=== PATIENT | male | born 1945 | race Caucasian/White ===

== ENCOUNTER 2016-10-18 07:34 | Observation (INO) ==
[2016-10-18] MEDS ORDERED: Insulin Regular, Human 100 UNIT/ML IV ONE (07:51)
--- NOTE | 2016-10-18 07:53 | Emergency Department Note ---
Disposition Clinical Impression: Metabolic acidosis, increased anion gap, Lactic acidosis, Acute on chronic renal insufficiency DKA (diabetic ketoacidoses) Qualifiers: Diabetes mellitus type: type 2 Diabetes mellitus complication detail: without coma Qualified Code(s): E13.10 - Other specified diabetes mellitus with ketoacidosis without coma Disposition: Admitted As Inpatient Condition: Serious Referrals: NO,PCP [Primary Care Provider] - Forms: Work/School Release, ED Satisfaction Letter Time of Disposition: 10:00 Weakness HPI - General Chief complaint: ED General Medical Stated complaint: hyperglycemia Time Seen by Provider: 10/18/16 07:36 Source: patient, family Limitations: no limitations Nursing Notes Reviewed: Yes Vital Signs Reviewed: Yes - History of Present Illness HPI Narrative: 71-year-old male history of [id number] diabetes, acute on chronic renal failure, presents plane of weakness and weight loss of about 10 pounds over the last 2 weeks. Patient is generalized weakness. And states that he has been having walk with a cane because he has been feeling weaker than usual. He is had this problem previously when he had elevated blood sugars. And was admitted to the ICU a few years ago for the similar condition. Patient's family history sister and his niece were at bedside state that they know most of his medical conditions and to give a lot of his history. As he is somewhat poor historian. Patient does live alone independently. The pain reason that he came to the ED today was he has his blood sugar was reading high on the glucometer, they are concerned that this meant that his sugar was greater than 500. He denies any chest pain abdominal pain, endorses slight nausea, denies vomiting diarrhea constipation, fever chills, dysuria Pt Subjective Complaint: generalized weakness/fatigue Onset (ago): week(s) (2) Duration: intermittent Pain Severity: mild Pain Scale: 7 Improves with: none Worsens with: none Associated symptoms: Reports: denies other symptoms, nausea/vomiting. Denies: chest pain, confusion, dark stools, easy bruising, fever/chills, headaches, myalgias - Related Data Home Medications Medication Instructions Recorded Confirmed Aspirin 325 mg PO DAILY 04/03/15 10/18/16 Glimepiride [Amaryl] 4 mg PO DAILY 04/03/15 10/18/16 Zolpidem [Ambien] 10 mg PO HS 04/03/15 10/18/16 Ascorbic Acid [Vitamin C] 1,000 mg PO DAILY 12/31/15 10/18/16 Metoprolol [Lopressor] 100 mg PO BID 12/31/15 10/18/16 Multivitamin [One Daily Essential] 1 tab PO DAILY 12/31/15 10/18/16 Amiodarone [Cordarone] 200 mg PO DAILY 10/18/16 10/18/16 Amlodipine [Norvasc] 5 mg PO DAILY 10/18/16 10/18/16 Previous Rx's Medication Instructions Recorded HYDROcodone/Acet 5/325 mg [[place] 1 tab PO Q4H PRN #15 tab 09/28/16 5-325 mg] Phenazopyridine HCl [Pyridium] 200 mg PO TIDAC PRN #20 tab 09/28/16 Allergies Allergy/AdvReac Type Severity Reaction Status Date / Time Penicillins Allergy Unknown Hives Verified 10/18/16 07:39 All systems ED: reviewed and negative except as stated. Constitutional: Reports: as per HPI, weakness, weight change. Denies: fever, chills Eyes: Denies: eye pain Cardiovascular: Denies: chest pain, palpitations Respiratory: Denies: cough, dyspnea, wheezes Gastrointestinal: Reports: as per HPI, nausea. Denies: abdominal pain, vomiting , diarrhea Genitourinary: Denies: urgency, dysuria, frequency Musculoskeletal: Denies: back pain, neck pain Integumentary: Denies: rash, abrasion Neurological: Reports: weakness. Denies: headache Psychiatric: Denies: anxiety, depression Past Medical History - Past Medical History Attestation: Yes The following information was validated with the patient. Source: patient Medical history: Reports: atrial fibrillation, coronary artery disease, glaucoma , kidney stones, renal disease Surgical history: Reports: pacemaker/AICD Psychiatric history: Reports: anxiety, depression - Social History Smoking Status: Never smoker Smokeless Tobacco Status: No Alcohol use: Reports: none Drug use: Reports: none Physical Exam Constitutional: Elderly male in no acute distress, appears stated age. Vital signs reviewed and are unremarkable HEENT: NCAT, sclera anicteric, PERRLA bilaterally, normal external ears bilaterally, nasal septum nondeviated, average dentition, mucus membranes dry. Neck: normal inspection, neck is supple, trachea midline Resp: normal chest inspection, CTA bilaterally, no resp distress CV: RRR, no m/g/r GI: normal inspection, Soft, NTND, BS present Back: normal inspection, no tenderness to palpation Neuro: A&O3, no gross motor or sensory deficits bilaterally Skin: Poor skin turgor - General Limitations: no limitations General appearance: alert, in no apparent distress Course Course Narrative: 71-year-old male with elevated blood sugar, at home read high here in the ED his blood glucometer reading was also high, patient is generalized weakness weight loss, concerning for DKA we will add beta hydroxybutyric acid, VBG, urinalysis, 2 L of fluids, regular insulin basic lab work reassess low threshold for admission in this patient - Reevaluation(s) Reevaluation #1: I discussed the patient with Dr. Moya he stated that we did not have any stepdown beds so that the patient should be transferred to another hospital, however after this conversation we spoke with pain management and they will have several discharges today at [facility], therefore the management will make sure that there is a stepdown bed available for this DKA patient, and the patient will be started on IV insulin drip with IV fluids, in the emergency department, waiting bed placement on the floor. Time: 09:59 Reevaluation #2: [facility] Accepted patient bed 2n9 available per bed management, patient stable Time: 11:12 Vital Signs Temperature 97.4 F L 10/18/16 07:36 Pulse Rate 60 10/18/16 07:36 Respiratory Rate 16 10/18/16 07:36 Blood Pressure 154/84 10/18/16 07:36 O2 Sat by Pulse Oximetry 97 10/18/16 07:36 Temperature 97.4 F L 10/18/16 07:36 Pulse Rate 59 10/18/16 09:30 Respiratory Rate 16 10/18/16 09:30 Blood Pressure 138/83 10/18/16 09:30 O2 Sat by Pulse Oximetry 94 L 10/18/16 09:30 Oxygen Delivery Oxygen Delivery Room Air Weakness - MDM Narrative Medical decision making narrative: 71 male with DKA, anion gap acidosis, lactic acidosis, acute on chronic renal failure, admitted to the hospitalist service in stable condition at the time of ED disposition. - Differential Diagnosis Differential Diagnosis: Likely: acute myocardial infarction, anemia, rhabdomyolysis, sepsis/infection, medication effect, metabolic, thyroid/ endocrine disorder - Medical Records Medical records reviewed: Yes I reviewed the patient's medical records. - Lab Data Lab results reviewed: Yes I reviewed the patient's lab results. Result diagrams: 10/18/16 08:03 10/18/16 08:03 Lab Results 10/18/16 10/18/16 10/18/16 Range/Units 07:45 08:03 08:03 WBC 9.1 (4.3-11.1) K/mcL RBC 5.43 (4.19-5.50) M/mcL Hgb 16.7 (12.9-16.9) g/dL Hct 48.4 (37.5-50.1) % MCV 89.1 (83.0-100.0) fL MCH 30.8 (28.0-33.3) pg MCHC 34.5 (31.6-35.5) g/dL RDW 13.1 (11.5-14.5) % Plt Count 314 (140-400) K/mcL MPV 12.2 (9.4-12.4) fL Immature Gran % 0.8 (0-4) % Seg Neutrophils % 68.7 % Lymphocytes % 17.7 % Monocytes % 10.8 % Eosinophils % 1.3 % Basophils % 0.7 % Neutrophils # 6.3 (1.6-8.9) K/mcL Lymphocytes # 1.6 (0.6-4.6) K/mcL Monocytes # 1.0 (0.0-1.3) K/mcL Eosinophils # 0.1 (0.0-0.6) K/mcL Basophils # 0.1 (0.0-0.2) K/mcL VBG pH (7.32-7.42) pH Units VBG pCO2 (41-51) mmHg VBG pO2 (25-40) mmHg VBG HCO3 (21-27) mEq/L Sodium 131 L (136-145) mEq/L Potassium 4.4 (3.5-4.5) mEq/L Chloride 93 L (98-109) mEq/L Carbon Dioxide 24 (19-29) mEq/L BUN 28 H (8-26) mg/dL Creatinine 2.41 H (0.72-1.25) mg/dL Est GFR ( Amer) 32 L (> 60) Est GFR (Non-Af Amer) 27 L (> 60) BUN/Creatinine Ratio 12 (6-26) Glucose 748 H* (70-99) mg/dL POC Glucose > 600 H* (58-89) Calculated Osmolality 314 H (280-300) Lactic Acid (0.5-2.2) mmol/L Calcium 9.7 (8.6-10.8) mg/dL Phosphorus 4.1 (2.3-4.7) mg/dL Magnesium 1.9 (1.6-2.6) mg/dL Total Bilirubin 1.3 H (0.2-1.2) mg/dL AST 22 (5-34) Units/L ALT 37 (0-55) Units/L Alkaline Phosphatase 146 H (38-126) Units/L Troponin I (0-0.03) ng/mL Serum Total Protein 8.7 H (6.0-8.3) g/dL Albumin 3.8 (3.5-5.0) g/dL Globulin 4.9 H (2.4-3.5) g/dL Albumin/Globulin Ratio 0.8 L (1.1-2.2) Beta-Hydroxybutyric Acd 0.31 H (0.02-0.27) mmol/L Urine Color (Yellow) Urine Clarity (Clear) Urine pH (5.0-8.0) pH Units Ur Specific [place] (1.010-1.025) Urine Protein (Neg-Trace) mg/dL Urine Glucose (UA) (Normal) mg/dL Urine Ketones (Negative) mg/dL Urine Blood (Negative) Urine Nitrite (Negative) Urine Bilirubin (Negative) Urine Urobilinogen (Normal) mg/dL Ur Leukocyte Esterase (Negative) Urine Microscopic RBC (0-3) per hpf Urine Microscopic WBC (0-3) per hpf Ur Squamous Epith Cells (None-Few) per lpf Urine Bacteria (None-Few) per hpf Hyaline Casts (None-Few) per lpf Ur Culture Indicated? (NO) 10/18/16 10/18/16 10/18/16 Range/Units 08:03 08:03 08:03 WBC (4.3-11.1) K/mcL RBC (4.19-5.50) M/mcL Hgb (12.9-16.9) g/dL Hct (37.5-50.1) % MCV (83.0-100.0) fL MCH (28.0-33.3) pg MCHC (31.6-35.5) g/dL RDW (11.5-14.5) % Plt Count (140-400) K/mcL MPV (9.4-12.4) fL Immature Gran % (0-4) % Seg Neutrophils % % Lymphocytes % % Monocytes % % Eosinophils % % Basophils % % Neutrophils # (1.6-8.9) K/mcL Lymphocytes # (0.6-4.6) K/mcL Monocytes # (0.0-1.3) K/mcL Eosinophils # (0.0-0.6) K/mcL Basophils # (0.0-0.2) K/mcL VBG pH 7.33 (7.32-7.42) pH Units VBG pCO2 53 H (41-51) mmHg VBG pO2 32 (25-40) mmHg VBG HCO3 27.9 H (21-27) mEq/L Sodium (136-145) mEq/L Potassium (3.5-4.5) mEq/L Chloride (98-109) mEq/L Carbon Dioxide (19-29) mEq/L BUN (8-26) mg/dL Creatinine (0.72-1.25) mg/dL Est GFR ( Amer) (> 60) Est GFR (Non-Af Amer) (> 60) BUN/Creatinine Ratio (6-26) Glucose (70-99) mg/dL POC Glucose (58-89) Calculated Osmolality (280-300) Lactic Acid 3.6 H (0.5-2.2) mmol/L Calcium (8.6-10.8) mg/dL Phosphorus (2.3-4.7) mg/dL Magnesium (1.6-2.6) mg/dL Total Bilirubin (0.2-1.2) mg/dL AST (5-34) Units/L ALT (0-55) Units/L Alkaline Phosphatase (38-126) Units/L Troponin I 0.01 (0-0.03) ng/mL Serum Total Protein (6.0-8.3) g/dL Albumin (3.5-5.0) g/dL Globulin (2.4-3.5) g/dL Albumin/Globulin Ratio (1.1-2.2) Beta-Hydroxybutyric Acd (0.02-0.27) mmol/L Urine Color (Yellow) Urine Clarity (Clear) Urine pH (5.0-8.0) pH Units Ur Specific [place] (1.010-1.025) Urine Protein (Neg-Trace) mg/dL Urine Glucose (UA) (Normal) mg/dL Urine Ketones (Negative) mg/dL Urine Blood (Negative) Urine Nitrite (Negative) Urine Bilirubin (Negative) Urine Urobilinogen (Normal) mg/dL Ur Leukocyte Esterase (Negative) Urine Microscopic RBC (0-3) per hpf Urine Microscopic WBC (0-3) per hpf Ur Squamous Epith Cells (None-Few) per lpf Urine Bacteria (None-Few) per hpf Hyaline Casts (None-Few) per lpf Ur Culture Indicated? (NO) 10/18/16 Range/Units 09:20 WBC (4.3-11.1) K/mcL RBC (4.19-5.50) M/mcL Hgb (12.9-16.9) g/dL Hct (37.5-50.1) % MCV (83.0-100.0) fL MCH (28.0-33.3) pg MCHC (31.6-35.5) g/dL RDW (11.5-14.5) % Plt Count (140-400) K/mcL MPV (9.4-12.4) fL Immature Gran % (0-4) % Seg Neutrophils % % Lymphocytes % % Monocytes % % Eosinophils % % Basophils % % Neutrophils # (1.6-8.9) K/mcL Lymphocytes # (0.6-4.6) K/mcL Monocytes # (0.0-1.3) K/mcL Eosinophils # (0.0-0.6) K/mcL Basophils # (0.0-0.2) K/mcL VBG pH (7.32-7.42) pH Units VBG pCO2 (41-51) mmHg VBG pO2 (25-40) mmHg VBG HCO3 (21-27) mEq/L Sodium (136-145) mEq/L Potassium (3.5-4.5) mEq/L Chloride (98-109) mEq/L Carbon Dioxide (19-29) mEq/L BUN (8-26) mg/dL Creatinine (0.72-1.25) mg/dL Est GFR ( Amer) (> 60) Est GFR (Non-Af Amer) (> 60) BUN/Creatinine Ratio (6-26) Glucose (70-99) mg/dL POC Glucose (58-89) Calculated Osmolality (280-300) Lactic Acid (0.5-2.2) mmol/L Calcium (8.6-10.8) mg/dL Phosphorus (2.3-4.7) mg/dL Magnesium (1.6-2.6) mg/dL Total Bilirubin (0.2-1.2) mg/dL AST (5-34) Units/L ALT (0-55) Units/L Alkaline Phosphatase (38-126) Units/L Troponin I (0-0.03) ng/mL Serum Total Protein (6.0-8.3) g/dL Albumin (3.5-5.0) g/dL Globulin (2.4-3.5) g/dL Albumin/Globulin Ratio (1.1-2.2) Beta-Hydroxybutyric Acd (0.02-0.27) mmol/L Urine Color Yellow (Yellow) Urine Clarity Cloudy A (Clear) Urine pH 6.0 (5.0-8.0) pH Units Ur Specific [place] > 1.030 H (1.010-1.025) Urine Protein 30 H (Neg-Trace) mg/dL Urine Glucose (UA) >=1000 H (Normal) mg/dL Urine Ketones Negative (Negative) mg/dL Urine Blood Large H (Negative) Urine Nitrite Negative (Negative) Urine Bilirubin Negative (Negative) Urine Urobilinogen Normal (Normal) mg/dL Ur Leukocyte Esterase Moderate H (Negative) Urine Microscopic RBC TNTC H (0-3) per hpf Urine Microscopic WBC TNTC H (0-3) per hpf Ur Squamous Epith Cells Moderate H (None-Few) per lpf Urine Bacteria Few (None-Few) per hpf Hyaline Casts None Seen (None-Few) per lpf Ur Culture Indicated? YES A (NO) - Radiology Data Radiology results reviewed: Yes I reviewed the patient's radiology results. Chest X-Ray 10/18/16 07:51 IMPRESSION: No acute cardiopulmonary process. Emphysema. D/ / Alek Sanford MD / Alek Sanford MD Interpreting Provider: Alek Sanford MD - EKG Data EKG attestation: Yes I reviewed and interpreted this EKG. EKG shows normal: sinus rhythm Rate: normal (60 bpm) [place]/QRS: IVCD (Pacemaker, left bundle branch block similar to previous EKG) Interpretation: no acute changes, unchanged when compared to prior tracing (date ) - Core Measures AMI Core Measures Followed: No Attestation Statement - Attestation Attestation: I examined this patient and my medical decision-making was reviewed with the PUBLIC SERVICE ADMINISTRATOR/PA/Advanced Practice Nurse/Resident Physician. I agree with the documented findings, disposition and treatment plan as described except to the extent set forth below. Patient to the emergency department complaining of generalized weakness. He felt bad for the past week. Laying around. They noted that his blood sugar was over 500 so they brought him in for an evaluation. Patient has a history of diabetes. He only takes metformin for that. On examination he is awake and alert. Dry mucous membranes. Abdomen soft nontender. Plan. He denies any infectious symptoms. Appears dehydrated. Blood sugar read as high on glucometer. Likely DKA. Patient with increased anion gap. Blood sugar in the 700s. Insulin drip and IV normal saline. Patient will be admitted to the hospitalist.
[2016-10-18] MEDS ORDERED: *HR* Dextrose 50 % in Water (Syg) 50 ML SYRINGE IVP PRN ×2 (08:07→11:18)
[2016-10-18] MEDS ORDERED: Insulin Human Regular 100 UNIT in 0.9 % Sodium Chloride 100 ML IVC SCH ×2 (08:15→13:30)
[2016-10-18] MEDS: 0.9 % Sodium Chloride 1,000 ML IVC SCH ×3 (08:16→11:30)
[2016-10-18 08:20] LABS: Basophils # 0.1 K/mcL (0.0-0.2); Basophils % 0.7 %; Eosinophils # 0.1 K/mcL (0.0-0.6); Eosinophils % 1.3 %; Hematocrit 48.4 % (37.5-50.1); Hemoglobin 16.7 g/dL (12.9-16.9); Immature Granulocytes % 0.8 % (0-4); Lymphocytes # 1.6 K/mcL (0.6-4.6); Lymphocytes % 17.7 %; Mean Corpuscular HGB Conc 34.5 g/dL (31.6-35.5); Mean Corpuscular Hemoglobin 30.8 pg (28.0-33.3); Mean Corpuscular Volume 89.1 fL (83.0-100.0); Mean Platelet Volume 12.2 fL (9.4-12.4); Monocytes % 10.8 %; Neutrophils # 6.3 K/mcL (1.6-8.9); Platelet Count 314 K/mcL (140-400); Red Blood Count 5.43 M/mcL (4.19-5.50); Red Cell Distribution Width 13.1 % (11.5-14.5); Segmented Neutrophils % 68.7 %
[2016-10-18 08:23] LABS: Beta-Hydroxybutyric Acid 0.31 mmol/L (0.02-0.27)
[2016-10-18 08:25] LABS: VBG HCO3 27.9 mEq/L (21-27); VBG PH 7.33 pH Units (7.32-7.42)
[2016-10-18 08:26] LABS: Albumin 3.8 g/dL (3.5-5.0); Albumin/Globulin Ratio 0.8 (1.1-2.2); Bilirubin,Total 1.3 mg/dL (0.2-1.2); Calcium 9.7 mg/dL (8.6-10.8); Globulin 4.9 g/dL (2.4-3.5); Magnesium 1.9 mg/dL (1.6-2.6); Phosphorous 4.1 mg/dL (2.3-4.7); Potassium 4.4 mEq/L (3.5-4.5); Total Protein 8.7 g/dL (6.0-8.3)
[2016-10-18 09:33] LABS: Bilirubin,Urine Negative (Negative); Blood,Urine Large (Negative); Clarity,Urine Cloudy (Clear); Color,Urine Yellow (Yellow); Glucose,Urine (UA) >=1000 mg/dL (Normal); Ketones,Urine Negative (Negative); Leukocyte Esterase,Urine Moderate (Negative); Nitrite,Urine Negative (Negative); Protein,Urine 30 mg/dL (Neg-Trace); Specific Gravity,Urine > 1.030 (1.010-1.025); Urobilinogen,Urine Normal (Normal)
[2016-10-18 09:35] LABS: Bacteria,Urine Few per hpf (None-Few); Hyaline Casts,Urine None Seen per lpf (None-Few); RBC,Urine TNTC per hpf (0-3); Squamous Epithelial Cell,Urine Moderate per lpf (None-Few); WBC,Urine TNTC per hpf (0-3)
[2016-10-18] MEDS ORDERED: Naloxone 0.4 MG/ML INJ IVP PRN (11:17)
[2016-10-18] MEDS ORDERED: D5% in 0.45% NACL w KCl 20 MEQ/1,000 ML MLS IVC PRN (11:18)
[2016-10-18] MEDS ORDERED: 0.9 % Sodium Chloride w KCl 20 MEQ/1,000 ML MLS IVC SCH (11:30)
--- NOTE | 2016-10-18 12:29 | Internal Med History&Physical ---
Date of Encounter: 10/18/16 Time of Encounter: 12:00 Assessment and Plan (1) Uncontrolled type 2 diabetes mellitus with hyperosmolar nonketotic hyperglycemia Current visit: Yes Status: Acute We will place the patient in hospital. Monitor vital signs closely. Given the high blood sugars, he will be placed on intravenous insulin per [facility] protocol. IV hydration. Monitor blood sugars closely. (2) Atrial fibrillation Current visit: Yes Status: Chronic Rate controlled. Patient currently has a paced rhythm. Not on anticoagulation. On aspirin. Qualifiers: Atrial fibrillation type: paroxysmal Qualified Code(s): I48.0 - Paroxysmal atrial fibrillation (3) Essential hypertension Current visit: Yes Status: Chronic Controlled. Continue home medications. (4) Lactic acidosis Current visit: Yes Status: Acute Likely due to dehydration and HSS. Will recheck levels. IV hydration. (5) Acute on chronic renal insufficiency Current visit: Yes Status: Acute Patient with worsening BUN and creatinine. Likely from dehydration. At baseline patient has chronic kidney disease stage III. We will consult urology to help manage the ureteral stent. (6) Acute cystitis without hematuria Current visit: Yes Status: Acute Patient has numerous wbc is urine. Underwent recent ureteral stent. Will treat empirically with antibiotics for a short course. Internal Medicine - H&P: HPI Chief complaint: Generalized weakness and fatigue Admitted From: Emergency Dept Plans for Post Hospital Care: Home History of present illness: Mr. Ventura is a 71 year old male with history of diabetes mellitus type 2, nephrolithiasis, atrial fibrillation, coronary artery disease and chronic kidney disease presented to the ER with complaints of generalized weakness. His symptoms have been going on for about 3 days now. He underwent a urologic procedure recently. He denies any pain while passing urine or any hematuria. He denies any nausea or vomiting. No diarrhea or constipation. He denies any chest pain or palpitations. He had checked his blood sugars at home and the reading was high so he decided to come to the ER. Patient has a ureteral stent in place and this was supposed to be removed today in the urology office. Past Med Surg Social Fam HX - Past Medical History Attestation: Yes The following information was validated with the patient. Medical history: atrial fibrillation, coronary artery disease, glaucoma, kidney stones, renal disease Psychiatric history: anxiety, depression - Past Surgical History Surgical History: pacemaker/AICD - Social History Smoking Status: Never smoker Smokeless Tobacco Status: No Alcohol use: none Drug use: none - Additional Family History Additional family history: Reviewed and found to be noncontributory at this time Internal Medicine - H&P: Meds Aspirin 325 mg PO DAILY 04/03/15 [History] Glimepiride [Amaryl] 4 mg PO DAILY 04/03/15 [History] Zolpidem [Ambien] 10 mg PO HS 04/03/15 [History] Ascorbic Acid [Vitamin C] 1,000 mg PO DAILY 12/31/15 [History] Metoprolol [Lopressor] 100 mg PO BID 12/31/15 [History] Multivitamin [One Daily Essential] 1 tab PO DAILY 12/31/15 [History] HYDROcodone/Acet 5/325 mg [[place] 5-325 mg] 1 tab PO Q4H PRN #15 tab 09/28/16 [Rx ] Phenazopyridine HCl [Pyridium] 200 mg PO TIDAC PRN #20 tab 09/28/16 [Rx] Amiodarone [Cordarone] 200 mg PO DAILY 10/18/16 [History] Amlodipine [Norvasc] 5 mg PO DAILY 10/18/16 [History] Allergies Penicillins Allergy (Unknown, Verified 10/18/16 07:39) Hives All Systems PM: A 10-system review of systems was performed and is negative for pertinent findings except as documented above in the HPI. - Constitutional Constitutional: malaise, weakness, no chills, no fever(s), no night sweats - EENT Eyes: no change in vision, no discharge, no pain, no photophobia Ears: no ear discharge, no ear pain, no tinnitus Nose, mouth and throat: no dysphagia, no nasal discharge, no neck pain, no sore throat - Cardiovascular Cardiovascular ROS IM: no chest pain, no diaphoresis, no dyspnea, no lightheadedness, no palpitations, no syncope - Respiratory Respiratory: no cough, no dyspnea, no wheezing, no excessive phlegm production - Gastrointestinal Gastrointestinal: no abdominal pain, no diarrhea, no hematemesis, no hematochezia, no melena, no nausea, no vomiting - Musculoskeletal Musculoskeletal ROS IM: no numbness, no tingling - Integumentary Integumentary IM: no rash, no unusual bruising - Neurological Neurological ROS: no confusion, no convulsions, no focal weakness, no numbness, no tingling, no tremor(s) - Hematologic/Lymphatic Hematologic/Lymphatic: no easy bruising - Constitutional Vitals: Temp Pulse Resp BP Pulse Ox 97.4 F L 59 16 120/77 96 10/18/16 07:36 10/18/16 11:30 10/18/16 11:30 10/18/16 11:30 10/18/16 11:30 General appearance: Present: cooperative, mild distress, A&O X 3, answers questions appropriately - Head Head exam: Present: atraumatic, normocephalic - Eye Eye exam: Present: EOMI, PERRL, conjuntiva pink, sclera anicteric - ENT ENT exam: Present: mucous membranes dry - Neck Neck exam general surgery: Present: supple, trachea midline. Absent: lymphadenopathy - Respiratory Respiratory exam: Present: CTAB. Absent: accessory muscle use, rales, rhonchi, wheezes - Cardiovascular Cardiovascular exam: Present: RRR, +S1, +S2. Absent: diastolic murmur, gallop, rubs, systolic murmur - GI/Abdominal GI/Abdominal exam: Present: normal bowel sounds, soft, no peritoneal signs. Absent: distended, tenderness - Extremities Exam Extremities exam: Present: warm, radial pulses palpable and symetrical. Absent : calf tenderness, cyanotic, pedal edema - Neurological Exam Neurological exam: Present: alert, CN II-XII intact, oriented X3, no focal deficits. Absent: facial droop, speech deficit - Psychiatric Psychiatric exam: Present: normal affect, normal mood - Skin Skin exam: Present: dry, intact Internal Med - H&P Results - Labs CBC & Chem 7: 10/18/16 08:03 10/18/16 08:03 - Impressions Impressions Chest X-Ray 10/18/16 07:51 IMPRESSION: No acute cardiopulmonary process. Emphysema. D/ / Alek Sanford MD / Alek Sanford MD Interpreting Provider: Alek Sanford MD - Attending Attestation This document has been at least partially created by [employer] recognition technology by Dr. Moya. Errors in grammar, wording or other phrases may exist. If errors are found after the documentation is signed, they will be addressed individually in the addendum section of this document when appropriate.
[2016-10-18] MEDS ORDERED: *HR* HYDROcodone/Acet 5/325 mg TABLET PO PRN (12:36)
[2016-10-18 13:00] LABS: Hemoglobin A1C 9.9 %
[2016-10-18 14:37] LABS: Calcium 8.4 mg/dL (8.6-10.8); Potassium 3.7 mEq/L (3.5-4.5)
[2016-10-18] MEDS ORDERED: Dextrose Gel 15 GM PO PRN ×2 (14:52)
[2016-10-18] MEDS ORDERED: D5% in Water 1,000 ML IV PRN (14:52)
[2016-10-18] MEDS: Insulin DETEMIR 100 UNIT/ML X5UNITS SQ SCH (15:38)
[2016-10-18] MEDS: Insulin LISPRO 300 UNITS/3 ML VIAL SQ SCH ×2 (16:53→21:50)
[2016-10-18] MEDS: *HR* Heparin 5,000 UNIT/ML VIAL SQ SCH (17:41)
--- NOTE | 2016-10-18 17:50 | Urology - Consult Note ---
Date of Encounter: 10/18/16 Time of Encounter: 17:48 - Assessment and Plan (1) Ureteral stricture Current Visit: Yes Status: Acute Assessment and plan: keep ureteral stent in place at this time. will schedule f/u appointment for stent removal in office (2) Acute on chronic renal insufficiency Current Visit: Yes Status: Acute Assessment and plan: serum creatinine already improving. will watch closely. Urology CN:HPI Consult date: 10/18/16 Reason for consult Urology: Hydronephrosis Requesting physician: Monalisa Moya History of present illness: Jason is a 71-year-old male with a history of left distal ureteral stricture. Patient recently underwent ureteral dilation and left ureteral stent placement by Dr. Lundberg. He was scheduled today in the office for cystoscopic removal of stent. Now admitted to the hospital secondary to diabetic ketoacidosis. He denies any problems with the ureteral stent. Initially when he was admitted the patient's creatinine was above 2 but has already decreased to 1.4. Past Med Surg Social Fam HX - Past Medical History Medical history: atrial fibrillation, coronary artery disease, glaucoma, kidney stones, renal disease Psychiatric history: anxiety, depression - Past Surgical History Surgical History: pacemaker/AICD - Social History Smoking Status: Never smoker Smokeless Tobacco Status: No Alcohol use: none Drug use: none Medications and Allergies Aspirin 325 mg PO DAILY 04/03/15 [History] Glimepiride [Amaryl] 4 mg PO DAILY 04/03/15 [History] Zolpidem [Ambien] 10 mg PO HS 04/03/15 [History] Ascorbic Acid [Vitamin C] 1,000 mg PO DAILY 12/31/15 [History] Metoprolol [Lopressor] 100 mg PO BID 12/31/15 [History] Multivitamin [One Daily Essential] 1 tab PO DAILY 12/31/15 [History] Amlodipine [Norvasc] 5 mg PO DAILY 10/18/16 [History] Brimonidine Tartrate/Timolol [Combigan Eye Drops] 1 drop OP HS 10/18/16 [History ] Cyclobenzaprine [Flexeril] 10 mg PO HS 10/18/16 [History] Paroxetine [Paxil] 20 mg PO DAILY 10/18/16 [History] Allergies Penicillins Allergy (Unknown, Verified 10/18/16 07:39) Hives Review of Systems - Constitutional no chills - EENT Nose, mouth and throat: no dizziness - Cardiovascular no chest pain - Respiratory no cough - Gastrointestinal no abdominal pain - Genitourinary no nocturia - Musculoskeletal no back pain - Integumentary no lesions Exam Initial Vital Signs Temp Pulse Resp BP Pulse Ox 97.4 F L 60 16 154/84 97 10/18/16 07:36 10/18/16 07:36 10/18/16 07:36 10/18/16 07:36 10/18/16 07:36 - General physical appearance Present: well developed - Eyes Present: PERRL - ENT Present: normal nares - Neck Present: no masses - Respiratory Present: normal respiratory effort - Cardiovascular Cardiovascular exam IM: RRR - Abdomen Abdomen: Present: soft Urology Results - Labs 10/18/16 08:03 10/18/16 14:13 Abnormal lab results VBG pCO2 53 mmHg (41-51) H 10/18/16 08:03 VBG HCO3 27.9 mEq/L (21-27) H 10/18/16 08:03 Hemoglobin A1c 9.9 % (-5.6) H 10/18/16 08:03 Lactic Acid 3.6 mmol/L (0.5-2.2) H 10/18/16 08:03 Total Bilirubin 1.3 mg/dL (0.2-1.2) H 10/18/16 08:03 Alkaline Phosphatase 146 Units/L (38-126) H 10/18/16 08:03 Serum Total Protein 8.7 g/dL (6.0-8.3) H 10/18/16 08:03 Globulin 4.9 g/dL (2.4-3.5) H 10/18/16 08:03 Albumin/Globulin Ratio 0.8 (1.1-2.2) L 10/18/16 08:03 Beta-Hydroxybutyric Acd 0.31 mmol/L (0.02-0.27) H 10/18/16 08:03 Urine Clarity Cloudy (Clear) A 10/18/16 09:20 Ur Specific [place] > 1.030 (1.010-1.025) H 10/18/16 09:20 Urine Protein 30 mg/dL (Neg-Trace) H 10/18/16 09:20 Urine Glucose (UA) >=1000 mg/dL (Normal) H 10/18/16 09:20 Urine Blood Large (Negative) H 10/18/16 09:20 Ur Leukocyte Esterase Moderate (Negative) H 10/18/16 09:20 Urine Microscopic RBC TNTC per hpf (0-3) H 10/18/16 09:20 Urine Microscopic WBC TNTC per hpf (0-3) H 10/18/16 09:20 Ur Squamous Epith Cells Moderate per lpf (None-Few) H 10/18/16 09:20 Ur Culture Indicated? YES (NO) A 10/18/16 09:20 Diabetes panel 10/18/16 10/18/16 Range/Units 14:13 14:13 Sodium TNP 144 D Potassium TNP 3.7 Chloride TNP 109 D Carbon Dioxide TNP 25 BUN TNP 22 Creatinine TNP 1.41 H Glucose TNP 110 H Calcium TNP 8.4 L Calcium panel 10/18/16 10/18/16 Range/Units 14:13 14:13 Calcium TNP 8.4 L Pituitary panel 10/18/16 10/18/16 Range/Units 14:13 14:13 Sodium TNP 144 D Potassium TNP 3.7 Chloride TNP 109 D Carbon Dioxide TNP 25 BUN TNP 22 Creatinine TNP 1.41 H Glucose TNP 110 H Calcium TNP 8.4 L Adrenal panel 10/18/16 10/18/16 Range/Units 14:13 14:13 Sodium TNP 144 D Potassium TNP 3.7 Chloride TNP 109 D Carbon Dioxide TNP 25 BUN TNP 22 Creatinine TNP 1.41 H Glucose TNP 110 H Calcium TNP 8.4 L All other labs normal. Consult Discharge Plan - Plan Referrals: Ranjit Rodriguez MD [Primary Care Provider] - 10/28/16 4:40 pm
[2016-10-18 19:49] LABS: Calcium 8.5 mg/dL (8.6-10.8); Potassium 4.2 mEq/L (3.5-4.5)
[2016-10-18] MEDS: Metoprolol 100 MG TABLET PO SCH (21:49)
[2016-10-18 23:36] LABS: Calcium 8.5 mg/dL (8.6-10.8); Potassium 3.6 mEq/L (3.5-4.5)
[2016-10-19 05:35] LABS: Basophils % 0.6 %; Eosinophils # 0.2 K/mcL (0.0-0.6); Eosinophils % 3.4 %; Hematocrit 39.6 % (37.5-50.1); Immature Granulocytes % 0.4 % (0-4); Lymphocytes # 1.7 K/mcL (0.6-4.6); Lymphocytes % 25.2 %; Mean Corpuscular HGB Conc 33.6 g/dL (31.6-35.5); Mean Corpuscular Hemoglobin 30.1 pg (28.0-33.3); Mean Corpuscular Volume 89.6 fL (83.0-100.0); Mean Platelet Volume 11.5 fL (9.4-12.4); Monocytes # 0.7 K/mcL (0.0-1.3); Monocytes % 10.6 %; Neutrophils # 4.1 K/mcL (1.6-8.9); Platelet Count 186 K/mcL (140-400); Red Blood Count 4.42 M/mcL (4.19-5.50); Red Cell Distribution Width 13.2 % (11.5-14.5); Segmented Neutrophils % 59.8 %
[2016-10-19 05:36] LABS: Hemoglobin 13.3 g/dL (12.9-16.9)
[2016-10-19 06:07] LABS: BUN/Creatinine Ratio 14 (6-26); Blood Urea Nitrogen 18 mg/dL (8-26); Calcium 8.4 mg/dL (8.6-10.8); Carbon Dioxide 24 mEq/L (19-29); Chloride 107 mEq/L (98-109); Glucose 139 mg/dL (70-99); Osmolality,Calculated 292 (280-300); Potassium 3.5 mEq/L (3.5-4.5); Sodium 139 mEq/L (136-145); eGFR For African Americans > 60 (> 60); eGFR For Non-African Americans 54 (> 60)
[2016-10-19] MEDS: *HR* Heparin 5,000 UNIT/ML VIAL SQ SCH ×2 (06:29→18:02)
[2016-10-19] MEDS: Aspirin 325 MG TABLET PO SCH (08:39)
[2016-10-19] MEDS: Insulin LISPRO 300 UNITS/3 ML VIAL SQ SCH ×4 (08:39→21:18)
[2016-10-19] MEDS: amLODIPine 5 MG TABLET PO SCH (08:39)
[2016-10-19] MEDS: Insulin DETEMIR 100 UNIT/ML X5UNITS SQ SCH (08:39)
[2016-10-19] MEDS: Metoprolol 100 MG TABLET PO SCH ×2 (08:55→21:12)
[2016-10-19] MEDS ORDERED: *HR* Amiodarone 200 MG TABLET PO SCH (09:00)
--- NOTE | 2016-10-19 12:16 | Electrocardiograph Report ---
[place] Ratio Test Date: 2016-10-18 Pat Name: Jason Ventura Department: 104 Room: 2N08 Gender: M Forensic Scientist: : 1945 Requested By: Raffi Connors Order Number: [id number] Reading MD: Patrick Richards DO Measurements Intervals [place] Rate: 60 P: 233 FL: 206 QRS: 59 QRSD: 109 T: 35 QT: 492 QTc: 492 Interpretive Statements ELECTRONIC ATRIAL PACEMAKER POSSIBLE INFERIOR MYOCARDIAL INFARCTION, PROBABLY OLD ABNORMAL RHYTHM ECG Electronically Signed On 10-19-2016 12:14:50 EDT by Patrick Richards DO
--- NOTE | 2016-10-19 17:20 | Urology Progress Note ---
Date of Encounter: 10/19/16 Time of Encounter: 17:20 - Assessment and Plan (1) Ureteral stricture Current Visit: Yes Status: Acute Assessment and plan: Patient will keep ureteral stent and I will schedule follow-up with Dr. Lundberg for stent removal. (2) Acute on chronic renal insufficiency Current Visit: Yes Status: Acute Progress Note Narrative: patient seen. feeling better. creatinine improved Objective Initial Vital Signs Temp Pulse Resp BP Pulse Ox 97.4 F L 60 16 154/84 97 10/18/16 07:36 10/18/16 07:36 10/18/16 07:36 10/18/16 07:36 10/18/16 07:36 - General physical appearance Present: well developed - Abdomen Present: soft - Labs 10/19/16 05:15 10/19/16 05:15 Diabetes panel 10/18/16 10/18/16 10/19/16 Range/Units 19:08 23:07 05:15 Sodium 138 137 139 (136-145) mEq/L Potassium 4.2 3.6 3.5 (3.5-4.5) mEq/L Chloride 106 105 107 (98-109) mEq/L Carbon Dioxide 26 27 24 (19-29) mEq/L BUN 20 20 18 (8-26) mg/dL Creatinine 1.44 H 1.45 H 1.31 H (0.72-1.25) mg/dL Glucose 315 H 277 H 139 H (70-99) mg/dL Calcium 8.5 L 8.5 L 8.4 L (8.6-10.8) mg/dL Calcium panel 10/18/16 10/18/16 10/19/16 Range/Units 19:08 23:07 05:15 Calcium 8.5 L 8.5 L 8.4 L (8.6-10.8) mg/dL Pituitary panel 10/18/16 10/18/16 10/19/16 Range/Units 19:08 23:07 05:15 Sodium 138 137 139 (136-145) mEq/L Potassium 4.2 3.6 3.5 (3.5-4.5) mEq/L Chloride 106 105 107 (98-109) mEq/L Carbon Dioxide 26 27 24 (19-29) mEq/L BUN 20 20 18 (8-26) mg/dL Creatinine 1.44 H 1.45 H 1.31 H (0.72-1.25) mg/dL Glucose 315 H 277 H 139 H (70-99) mg/dL Calcium 8.5 L 8.5 L 8.4 L (8.6-10.8) mg/dL Adrenal panel 10/18/16 10/18/16 10/19/16 Range/Units 19:08 23:07 05:15 Sodium 138 137 139 (136-145) mEq/L Potassium 4.2 3.6 3.5 (3.5-4.5) mEq/L Chloride 106 105 107 (98-109) mEq/L Carbon Dioxide 26 27 24 (19-29) mEq/L BUN 20 20 18 (8-26) mg/dL Creatinine 1.44 H 1.45 H 1.31 H (0.72-1.25) mg/dL Glucose 315 H 277 H 139 H (70-99) mg/dL Calcium 8.5 L 8.5 L 8.4 L (8.6-10.8) mg/dL Consult Discharge Plan - Plan Referrals: Ranjit Rodriguez MD [Primary Care Provider] - 10/28/16 4:40 pm
--- NOTE | 2016-10-19 18:33 | Internal Med Progress Note ---
Date of Encounter: 10/19/16 Time of Encounter: 18:31 - Assessment and plan (1) Metabolic acidosis, increased anion gap Current Visit: Yes Status: Acute (2) Lactic acidosis Current Visit: Yes Status: Acute (3) Acute on chronic renal insufficiency Current Visit: Yes Status: Acute (4) Uncontrolled type 2 diabetes mellitus with hyperosmolar nonketotic hyperglycemia Current Visit: Yes Status: Acute (5) Atrial fibrillation Current Visit: Yes Status: Chronic Qualifiers: Atrial fibrillation type: paroxysmal Qualified Code(s): I48.0 - Paroxysmal atrial fibrillation (6) Essential hypertension Current Visit: Yes Status: Chronic (7) Ureteral stricture Current Visit: Yes Status: Acute Assessment and plan: 71-year-old male with history of diabetes latest typed with complications, Clarissa asses, atrial fibrillation, contrary artery disease, admitted to the hospital with generalized weakness and hyperglycemia. # Uncontrolled type II diabetes with hyperosmolar nonketotic hyperglycemia: blood glucose was elevated at 700 on admission requiring IV insulin. BG remains elevated at 300s this morning. A1 CS 9.9, reflecting poor diabetic control, probably his glucose runs in 250 to 300 at home. conservation educator consultative, will discharge patient home on insulin # Atrial fibrillation: currently in place rhythm, on aspirin. # Essential hypertension: continue home medications amlodipine # Lactic acidosis: on admission likely in setting of dehydration, which improved with IV fluids # Acute and chronic renal failure: in setting of dehydration on IV fluids # Recent ureteral stent placement: urology has evaluated the patient and recommended outpatient follow-up # UTI: urine positive, started on ciprofloxacin BID based on previous culture results. # DVT Prophylaxis: - Time Spent With Patient 25 - 35 minutes - Subjective Interval history: Patient seen and examined at bedside, he sitting up in a chair this morning. Denies any chest pain, palpitation, nausea, vomiting, abdominal pain, urinary symptoms. Labs from this morning review, sodium of 139/potassium of 3.5/ creatinine of 1.3/lactic acid of 1/glucose of 139/ hemoglobin of 13.3. - Constitutional Vitals: Temp Pulse Resp BP Pulse Ox 98.3 F 60 17 132/78 96 10/19/16 15:46 10/19/16 16:33 10/19/16 15:46 10/19/16 15:46 10/19/16 15:46 General appearance: Present: cooperative, mild distress, A&O X 3, answers questions appropriately - Head Head exam: Present: atraumatic - Eye Eye exam: Present: PERRL, conjuntiva pink, sclera anicteric Pupils: Present: PERRL - Neck Neck exam general surgery: Present: supple, trachea midline. Absent: lymphadenopathy - Respiratory Respiratory exam: Present: CTAB. Absent: accessory muscle use, rales, rhonchi, wheezes - Cardiovascular Cardiovascular exam: Present: RRR, +S1, +S2. Absent: diastolic murmur, gallop, rubs, systolic murmur - GI/Abdominal GI/Abdominal exam: Present: normal bowel sounds, soft, no peritoneal signs. Absent: distended, tenderness - Extremities Exam Extremities exam: Present: warm, radial pulses palpable and symetrical. Absent : calf tenderness, cyanotic, pedal edema - Neurological Exam Neurological exam: Present: CN II-XII intact, oriented X3, no focal deficits. Absent: pronater drift, facial droop, speech deficit Internal Medicine: Result - Labs CBC & Chem 7: 10/19/16 05:15 10/19/16 05:15 Labs: Short CBC 10/19/16 Range/Units 05:15 WBC 6.8 (4.3-11.1) K/mcL Hgb 13.3 D (12.9-16.9) g/dL Hct 39.6 (37.5-50.1) % Plt Count 186 (140-400) K/mcL Neutrophils # 4.1 (1.6-8.9) K/mcL BMP 10/18/16 10/18/16 10/19/16 19:08 23:07 05:15 Sodium 138 137 139 Potassium 4.2 3.6 3.5 Chloride 106 105 107 Carbon Dioxide 26 27 24 BUN 20 20 18 Creatinine 1.44 H 1.45 H 1.31 H Glucose 315 H 277 H 139 H Calcium 8.5 L 8.5 L 8.4 L Consult Discharge Plan - Plan Referrals: Ranjit Rodriguez MD [Primary Care Provider] - 10/28/16 4:40 pm
[2016-10-19] MEDS ORDERED: Insulin DETEMIR 100 UNIT/ML X5UNITS SQ SCH (21:00)
[2016-10-20] MEDS: *HR* Heparin 5,000 UNIT/ML VIAL SQ SCH (05:46)
[2016-10-20 08:44] LABS: Basophils % 0.7 %; Eosinophils # 0.2 K/mcL (0.0-0.6); Eosinophils % 4.3 %; Hematocrit 40.9 % (37.5-50.1); Hemoglobin 13.5 g/dL (12.9-16.9); Immature Granulocytes % 0.9 % (0-4); Lymphocytes # 1.6 K/mcL (0.6-4.6); Lymphocytes % 29.3 %; Mean Corpuscular Hemoglobin 29.7 pg (28.0-33.3); Mean Corpuscular Volume 89.9 fL (83.0-100.0); Mean Platelet Volume 11.7 fL (9.4-12.4); Monocytes # 0.6 K/mcL (0.0-1.3); Monocytes % 11.2 %; Platelet Count 179 K/mcL (140-400); Red Blood Count 4.55 M/mcL (4.19-5.50); Red Cell Distribution Width 13.2 % (11.5-14.5); Segmented Neutrophils % 53.6 %
[2016-10-20 08:57] LABS: Calcium 8.3 mg/dL (8.6-10.8); Potassium 3.9 mEq/L (3.5-4.5)
[2016-10-20] MEDS ORDERED: Insulin DETEMIR 100 UNIT/ML X5UNITS SQ SCH (09:00)
[2016-10-20] MEDS: amLODIPine 5 MG TABLET PO SCH (09:39)
[2016-10-20] MEDS: Metoprolol 100 MG TABLET PO SCH (09:39)
[2016-10-20] MEDS: Aspirin 325 MG TABLET PO SCH (09:39)
[2016-10-20] MEDS: Insulin LISPRO 300 UNITS/3 ML VIAL SQ SCH (09:50)
--- NOTE | 2016-10-20 10:16 | Discharge Summary ---
Date of Encounter: 10/20/16 Time of Encounter: 10:11 - Discharge Diagnosis (1) Metabolic acidosis, increased anion gap Priority: Primary Status: Acute (2) Lactic acidosis Priority: Primary Status: Acute (3) Acute on chronic renal insufficiency Priority: Primary Status: Acute (4) Uncontrolled type 2 diabetes mellitus with hyperosmolar nonketotic hyperglycemia Priority: Primary Status: Acute (5) Atrial fibrillation Priority: Secondary Status: Chronic Qualifiers: Atrial fibrillation type: paroxysmal Qualified Code(s): I48.0 - Paroxysmal atrial fibrillation (6) Essential hypertension Priority: Secondary Status: Chronic (7) Ureteral stricture Priority: Secondary Status: Acute (8) UTI (urinary tract infection) Priority: Primary Status: Acute Qualifiers: Urinary tract infection type: acute cystitis Hematuria presence: without hematuria Qualified Code(s): N30.00 - Acute cystitis without hematuria - Discharge Medications Prescriptions: Ciprofloxacin [Cipro] 500 mg PO BID #14 tablet Insulin DETEMIR [Levemir Flextouch] 7 unit SQ BID #1 insuln.pen Home Medications: Aspirin 325 mg PO DAILY 04/03/15 [History] Glimepiride [Amaryl] 4 mg PO DAILY 04/03/15 [History] Zolpidem [Ambien] 10 mg PO HS 04/03/15 [History] Ascorbic Acid [Vitamin C] 1,000 mg PO DAILY 12/31/15 [History] Metoprolol [Lopressor] 100 mg PO BID 12/31/15 [History] Multivitamin [One Daily Essential] 1 tab PO DAILY 12/31/15 [History] Amlodipine [Norvasc] 5 mg PO DAILY 10/18/16 [History] Brimonidine Tartrate/Timolol [Combigan Eye Drops] 1 drop OP HS 10/18/16 [History ] Cyclobenzaprine [Flexeril] 10 mg PO HS 10/18/16 [History] Paroxetine [Paxil] 20 mg PO DAILY 10/18/16 [History] Ciprofloxacin [Cipro] 500 mg PO BID #14 tablet 10/20/16 [Rx] Insulin DETEMIR [Levemir Flextouch] 7 unit SQ BID #1 insuln.pen 10/20/16 [Rx] Allergies/Adverse Reactions: Allergies Penicillins Allergy (Unknown, Verified 10/18/16 07:39) Hives Date of admission: 10/18/16 11:12 Primary care physician: Ranjit Rodriguez MD Consults: 10/18/16 12:18 Consult to Urology [CONS] Routine Consulting Provider: Dougie Dill Reason for Consult: Ureteral stent Time Notified: 12:21 Call Completed: Yes 10/19/16 11:37 Consult to Cigar Tobacco Rehandler [CONS] Stat Comment: PT WILL BE DC ON INSULIN Discharging clinician: Deidre Sebastian Anticipated date of discharge: 10/20/16 - Patient Status Disposition: Home, Self-Care Condition: Good Overall status at discharge: patient is progressing back to baseline - Discharge Instructions Instructions: Ciprofloxacin (By mouth), Insulin Detemir (Injection), Diabetes Mellitus Type 2 in Adults (DC) Follow Up With: Ranjit Rodriguez MD [Primary Care Provider] - 10/28/16 4:40 pm - Diet and Activity Activity: increase activity as tolerated Diet: advance to your usual diet, diabetic diet Interval History: 71-year-old male with history of diabetes latest typed with complications, Clarissa asses, atrial fibrillation, contrary artery disease, admitted to the hospital with generalized weakness and hyperglycemia. Patient was diagnosed to have uncontrolled type II diabetes with hyperosmolar nonkeotic hyperglycemia. He was treated on insulin drug which was subsequently changed to basal bolus insulin regimen. A1C on this admission was 9.9 reflecting poor diabetic control , with baseline glucose running in 250 to 300. Patient started on basal insulin Levemir 10 units BID with better control. He has given script spoke to commit a common lancets and test strips. Patient was seen by elementary educator , educated on using sales contract administrator and insulin pen. Patient has history of A. fibrillation for which he was continued on his home medications with fair control. He has continued on home dose of amlodipine for essential hypertension. Patient has ureteral stentplacement for which he was evaluated by urology. Urine analysis on this admission was positive. Given recent stent placementpt was started on tx wit ciprofloxacin and discharged home on PO ciprofloxacin to be continued for 7 more days. Patient was noticed to be in [place] on admission in setting of dehydration, hyperglycemia which has improved IV fluids. PAtient hemodynamically stable and is ready for discharge. Treatment plan explained in detail and adequate time provided for answering all questions. Hospital course: Mr. Ventura is a 71 year old male - Time Spent with Patient Total time spent providing and/or coordinating discharge services: Greater than 30 minutes - Constitutional Vitals: Temp Pulse Resp BP Pulse Ox 97.8 F 60 16 143/82 97 10/20/16 08:12 10/20/16 08:12 10/20/16 08:12 10/20/16 08:12 10/20/16 08:12 General appearance: Present: cooperative, mild distress, A&O X 3, answers questions appropriately - Head Head exam: Present: atraumatic, normocephalic - Eye Eye exam: Present: PERRL, conjuntiva pink, sclera anicteric Pupils: Present: PERRL - Neck Neck exam general surgery: Present: supple, trachea midline. Absent: lymphadenopathy - Respiratory Respiratory exam: Present: CTAB. Absent: accessory muscle use, rales, rhonchi, wheezes - Cardiovascular Cardiovascular exam: Present: RRR, +S1, +S2. Absent: diastolic murmur, gallop, rubs, systolic murmur - GI/Abdominal GI/Abdominal exam: Present: normal bowel sounds, soft, no peritoneal signs. Absent: distended, tenderness - Extremities Exam Extremities exam: Present: warm, radial pulses palpable and symetrical. Absent : calf tenderness, cyanotic, pedal edema - Neurological Exam Neurological exam: Present: CN II-XII intact, oriented X3, no focal deficits. Absent: pronater drift, facial droop, speech deficit - Skin Skin exam: Present: dry, intact
[2016-10-20] MEDS ORDERED: Insulin LISPRO 300 UNITS/3 ML VIAL SQ SCH ×3 (12:03→21:00)
[2016-10-20 13:04] VITALS: BP 111/70
== END 2016-10-20 15:57 | disposition home or self-care (01) ==
LOC: EMEROO 07:34 → 2NNU 07:34
PROVIDERS: ADMIT Internal Medicine; ATTEND Internal Medicine

== ENCOUNTER 2019-01-07 08:10 | Inpatient (IN) ==
[2019-01-07] MEDS ORDERED: Isovue-370 500 ML BOTTLE IVP ONE ×3 (08:34→08:44)
[2019-01-07] MEDS ORDERED: *HR* FentaNYL (PF) 100 MCG/2 ML VIAL IVP ONE (08:37)
[2019-01-07] MEDS ORDERED: Ondansetron 4 MG/2 ML VIAL IVP ONE (08:37)
[2019-01-07 08:56] LABS: Basophils % 0.4 %; Eosinophils # 0.2 K/mcL (0.0-0.6); Hemoglobin 12.9 g/dL (12.9-16.9); Immature Granulocytes % 0.3 % (0-4); Lymphocytes # 1.4 K/mcL (0.6-4.6); Lymphocytes % 14.7 %; Mean Corpuscular HGB Conc 32.3 g/dL (31.6-35.5); Mean Corpuscular Hemoglobin 28.2 pg (28.0-33.3); Mean Corpuscular Volume 87.3 fL (83.0-100.0); Monocytes # 0.9 K/mcL (0.0-1.3); Monocytes % 9.5 %; Platelet Count 196 K/mcL (140-400); Red Blood Count 4.58 M/mcL (4.19-5.50); Red Cell Distribution Width 15.4 % (11.5-14.5); Segmented Neutrophils % 73.1 %; White Blood Count 9.5 K/mcL (4.3-11.1)
[2019-01-07 09:03] LABS: INR 1.1; Prothrombin Time 12.7 Seconds (9.4-12.1)
--- NOTE | 2019-01-07 09:07 | Emergency Department Note ---
Disposition Clinical Impression: Colon obstruction, TONO (acute kidney injury) Disposition: Admitted As Inpatient Condition: Good Time of Disposition: 16:22 General Adult HPI - General Chief complaint: ED Abdominal Pain Stated complaint: "stoma closed up" Time Seen by Provider: 01/07/19 08:15 Source: patient, family Mode of arrival: ambulatory Limitations: no limitations Nursing Notes Reviewed: Yes Vital Signs Reviewed: Yes - History of Present Illness HPI Narrative: Patient is a 73-year-old male that presents emergency department due to concerns of his colostomy stoma closing. Patient states that he has been having issues with this ever sensitive in place. Patient states that he had a previous history of colon cancer with resection and had an issue with the anastomosis and required emergent surgery. Patient states that in early September the colostomy was placed. Patient states that he has had issues with the stoma narrowing and required dilation in the past. Patient states that over the past couple of days he has had increased narrowing where he is only getting small amounts of blood he describes it squirts of stool into the colostomy bag. Patient states that he has had increased abdominal pain and small amounts of blood in his stool. Patient states that he also feels like he is more distended and bloated than he normally is. Patient denies any nausea, vomiting or fevers. Patient denies any urinary symptoms. Pain Scale: 5 - Related Data Home Medications Medication Instructions Recorded Confirmed Aspirin 325 mg PO DAILY 04/03/15 01/07/19 Glimepiride [Amaryl] 4 mg PO DAILY 04/03/15 01/07/19 Ascorbic Acid [Vitamin C] 1,000 mg PO DAILY 12/31/15 01/07/19 Metoprolol [Lopressor] 100 mg PO DAILY 12/31/15 01/07/19 Multivitamin [One Daily Essential] 1 tab PO DAILY 12/31/15 01/07/19 Brimonidine Tartrate/Timolol 1 drop RIGHT EYE BID 10/18/16 01/07/19 [Combigan 0.2%-0.5% Eye Drops] Insulin DETEMIR [Levemir Flextouch] 12 unit SQ BID 11/09/16 10/01/18 Amiodarone [Cordarone] 200 mg PO DAILY 08/04/17 01/07/19 Zolpidem [Ambien] 10 mg PO HS 08/04/17 01/07/19 Amlodipine Besylate 10 mg PO DAILY 11/02/17 01/07/19 Bimatoprost [Lumigan] 1 drop RIGHT EYE HS 11/02/17 01/07/19 Calcium Carbonate [Calcium] 600 mg PO DAILY 11/02/17 01/07/19 Dorzolamide [Trusopt] 1 drop RIGHT EYE TID 11/02/17 01/07/19 Tolterodine Tartrate [Detrol] 2 mg PO BID 11/02/17 01/07/19 Previous Rx's Medication Instructions Recorded Docusate [Colace] 100 mg PO DAILY #14 capsule 12/06/18 Allergies Allergy/AdvReac Type Severity Reaction Status Date / Time Penicillins Allergy Unknown Hives Verified 01/07/19 08:14 All systems ED: reviewed and negative except as stated. Constitutional: Denies: fever Cardiovascular: Denies: chest pain Respiratory: Denies: dyspnea Gastrointestinal: Reports: abdominal pain. Denies: nausea, vomiting Genitourinary: Denies: urgency, dysuria, frequency Neurological: Denies: weakness, numbness, paresthesias Past Medical History - Past Medical History Medical history: Reports: atrial fibrillation, cancer, coronary artery disease, diabetes, glaucoma, kidney stones, renal disease Surgical history: Reports: pacemaker/AICD, other Psychiatric history: Reports: anxiety, depression - Social History Smoking Status: Never smoker Smokeless Tobacco Status: No Alcohol use: Reports: none Drug use: Reports: none Physical Exam - General Limitations: no limitations General appearance: alert, in no apparent distress - Head Head exam: atraumatic, normocephalic - Eye Eye exam: Present: normal appearance, EOMI - Neck Neck exam: Present: normal inspection, full ROM, trachea midline - Respiratory Respiratory exam: Present: normal lung sounds bilaterally. Absent: respiratory distress, wheezes - Cardiovascular Cardiovascular exam: Present: regular rate, normal rhythm, normal heart sounds, +S1, +S2 - Abdominal Exam Abdominal exam: Present: soft, tenderness (Moderate lower abdominal tenderness ), normal bowel sounds, other (Colostomy in place in the left lower abdomen) - Neurological Exam Neurological exam: Present: alert, oriented X3 - Psychiatric Psychiatric exam: Present: normal affect, normal mood - Skin Skin exam: Present: warm, dry, intact Course Vital Signs Temperature 97.5 F L 01/07/19 08:12 Pulse Rate 60 01/07/19 08:12 Respiratory Rate 16 01/07/19 08:12 Blood Pressure 147/77 01/07/19 08:12 O2 Sat by Pulse Oximetry 97 01/07/19 08:12 Temperature 97.5 F L 01/07/19 08:18 Pulse Rate 62 01/07/19 15:03 Respiratory Rate 16 01/07/19 15:03 Blood Pressure 148/78 01/07/19 15:03 O2 Sat by Pulse Oximetry 100 01/07/19 15:03 Oxygen Delivery Oxygen Delivery Room Air Medical Decision Making - MDM Narrative Medical decision making narrative: Due the patient's into the emergency department with reports narrowing of his colostomy and increased abdominal pain acute care surgery was contacted and they recommended that the patient have a CT scan of the abdomen and pelvis with IV and oral contrast. CT the abdomen and pelvis showed concern for colitis due to information or infectious etiology. The patient's symptoms are likely colon obstruction secondary to the narrowing of the ostomy. The patient also has a urinary tract infection. The patient will be given a dose of Rocephin here. The patient was seen by acute care surgery Dr. Martinez. He was in agreement with having the patient admitted to the hospital. Patient also has evidence of an acute kidney injury. Patient has been stable throughout his stay here in the emergency department will be admitted to the hospital for further surgical evaluation called spoke with the admitting hospitalist Dr. Tripp and she has accepted the patient to their service. Patient will be admitted to hospital this time for further evaluation and management. - Medical Records Medical records reviewed: Yes I reviewed the patient's medical records. - Lab Data Lab results reviewed: Yes I reviewed the patient's lab results. Result diagrams: 01/08/19 06:27 01/08/19 06:27 Lab Results 01/07/19 01/07/19 01/07/19 Range/Units 08:28 08:35 08:46 WBC 9.5 (4.3-11.1) K/mcL RBC 4.58 (4.19-5.50) M/mcL Hgb 12.9 (12.9-16.9) g/dL Hct 40.0 (37.5-50.1) % MCV 87.3 (83.0-100.0) fL MCH 28.2 (28.0-33.3) pg MCHC 32.3 (31.6-35.5) g/dL RDW 15.4 H (11.5-14.5) % Plt Count 196 (140-400) K/mcL MPV 11.0 (9.4-12.4) fL Immature Gran % 0.3 (0-4) % Seg Neutrophils % 73.1 % Lymphocytes % 14.7 % Monocytes % 9.5 % Eosinophils % 2.0 % Basophils % 0.4 % Neutrophils # 7.0 (1.6-8.9) K/mcL Lymphocytes # 1.4 (0.6-4.6) K/mcL Monocytes # 0.9 (0.0-1.3) K/mcL Eosinophils # 0.2 (0.0-0.6) K/mcL Basophils # 0.0 (0.0-0.2) K/mcL PT 12.7 H (9.4-12.1) Seconds INR 1.1 Sodium 139 (136-145) mEq/L Potassium 3.7 (3.5-5.1) mEq/L Chloride 109 H (98-107) mEq/L Carbon Dioxide 25 (23-29) mEq/L BUN 19 (8-23) mg/dL Creatinine 1.45 H (0.70-1.30) mg/dL Est GFR ( Amer) 58 L (> 60) Est GFR (Non-Af Amer) 47 L (> 60) BUN/Creatinine Ratio 13 (6-26) Glucose 119 H (70-105) mg/dL Calculated Osmolality 291 (280-300) Calcium 9.2 (8.6-10.3) mg/dL Total Bilirubin 0.7 (0.3-1.0) mg/dL Direct Bilirubin 0.1 (0.0-0.2) mg/dL Indirect Bilirubin 0.6 (0.0-1.2) mg/dL AST 11 L (13-39) Units/L ALT 9 (7-52) Units/L Alkaline Phosphatase 63 (34-104) Units/L Serum Total Protein 6.8 (6.4-8.9) g/dL Albumin 3.7 (3.5-5.7) g/dL Globulin 3.1 (2.4-3.5) g/dL Albumin/Globulin Ratio 1.2 (1.1-2.2) Lipase 6 L (11-82) Units/L Urine Color (Yellow) Urine Clarity (Clear) Urine pH (5.0-8.0) pH Units Ur Specific [place] (1.010-1.025) Urine Protein (Neg-Trace) mg/dL Urine Glucose (UA) (Normal) mg/dL Urine Ketones (Negative) mg/dL Urine Blood (Negative) Urine Nitrite (Negative) Urine Bilirubin (Negative) Urine Urobilinogen (Normal) mg/dL Ur Leukocyte Esterase (Negative) Urine Microscopic RBC (0-3) per hpf Urine Microscopic WBC (0-3) per hpf Ur Squamous Epith Cells (None-Few) per lpf Urine Bacteria (None-Few) per hpf Hyaline Casts (None-Few) per lpf Ur Culture Indicated? (NO) Blood Type Antibody Screen 01/07/19 01/07/19 Range/Units 08:46 11:03 WBC (4.3-11.1) K/mcL RBC (4.19-5.50) M/mcL Hgb (12.9-16.9) g/dL Hct (37.5-50.1) % MCV (83.0-100.0) fL MCH (28.0-33.3) pg MCHC (31.6-35.5) g/dL RDW (11.5-14.5) % Plt Count (140-400) K/mcL MPV (9.4-12.4) fL Immature Gran % (0-4) % Seg Neutrophils % % Lymphocytes % % Monocytes % % Eosinophils % % Basophils % % Neutrophils # (1.6-8.9) K/mcL Lymphocytes # (0.6-4.6) K/mcL Monocytes # (0.0-1.3) K/mcL Eosinophils # (0.0-0.6) K/mcL Basophils # (0.0-0.2) K/mcL PT (9.4-12.1) Seconds INR Sodium (136-145) mEq/L Potassium (3.5-5.1) mEq/L Chloride (98-107) mEq/L Carbon Dioxide (23-29) mEq/L BUN (8-23) mg/dL Creatinine (0.70-1.30) mg/dL Est GFR ( Amer) (> 60) Est GFR (Non-Af Amer) (> 60) BUN/Creatinine Ratio (6-26) Glucose (70-105) mg/dL Calculated Osmolality (280-300) Calcium (8.6-10.3) mg/dL Total Bilirubin (0.3-1.0) mg/dL Direct Bilirubin (0.0-0.2) mg/dL Indirect Bilirubin (0.0-1.2) mg/dL AST (13-39) Units/L ALT (7-52) Units/L Alkaline Phosphatase (34-104) Units/L Serum Total Protein (6.4-8.9) g/dL Albumin (3.5-5.7) g/dL Globulin (2.4-3.5) g/dL Albumin/Globulin Ratio (1.1-2.2) Lipase (11-82) Units/L Urine Color Yellow (Yellow) Urine Clarity Cloudy A (Clear) Urine pH 6.0 (5.0-8.0) pH Units Ur Specific [place] 1.022 (1.010-1.025) Urine Protein Negative (Neg-Trace) mg/dL Urine Glucose (UA) Normal (Normal) mg/dL Urine Ketones Negative (Negative) mg/dL Urine Blood Negative (Negative) Urine Nitrite Negative (Negative) Urine Bilirubin Negative (Negative) Urine Urobilinogen Normal (Normal) mg/dL Ur Leukocyte Esterase Moderate H (Negative) Urine Microscopic RBC 3-5 H (0-3) per hpf Urine Microscopic WBC 50-100 H (0-3) per hpf Ur Squamous Epith Cells Many H (None-Few) per lpf Urine Bacteria Many H (None-Few) per hpf Hyaline Casts None Seen (None-Few) per lpf Ur Culture Indicated? YES A (NO) Blood Type A POSITIVE Antibody Screen NEGATIVE - Radiology Data Radiology results reviewed: Yes I reviewed the patient's radiology results. Abdomen/Pelvis CT 01/07/19 10:15 IMPRESSION: Wall thickening and inflammatory changes involving the descending colon to the level of the ostomy, overall similar to the prior study. Findings could represent residual infectious/inflammatory colitis. Moderate stool burden throughout the colon. Findings again could represent stricture at the ostomy site. Chronic left-sided hydronephrosis due to tethering of the ureter by the presacral soft tissue thickening. Presacral soft tissue thickening is likely postsurgical, though consider follow-up with PET-CT if there is suspicion for recurrent disease. D/ / Alberto Charlton MD / Alberto Charlton MD Interpreting Provider: Alberto Charlton MD Attestation Statement - Attestation Attestation: Resident Attestation: I examined this patient and my medical decision making was reviewed with the Resident Physician. I agree with the documented findings, disposition and treatment plan as described except to the extent set forth below. We independently had [id number] contact with the patient. Patient presenting for evaluation of concern for stoma closure. Patient has a previous colostomy that has required dilation in the past. Patient has been unable to have significant bowel movement secondary to closure which she describes as the size of a pencil. On exam the patient does have some mild t enderness to left lower quadrant but the stoma is smaller than my PT. Approximately the size of small pencil. The patient will be required dilation. CT scan will be performed to rule out underlying infection or colitis. Case was discussed with surgery. Surgery did come but that side to evaluate the patient. Patient will be admitted for dilation as well as antibiotics for urinary tract infection. Dr. Finnegan, surgery, does not believe that the colitis is likely related to specific inflammation but secondary to stool load secondary to obstruction secondary to stoma.
[2019-01-07 09:10] LABS: Albumin 3.7 g/dL (3.5-5.7); Albumin/Globulin Ratio 1.2 (1.1-2.2); Bilirubin,Direct 0.1 mg/dL (0.0-0.2); Bilirubin,Indirect 0.6 mg/dL (0.0-1.2); Bilirubin,Total 0.7 mg/dL (0.3-1.0); Calcium 9.2 mg/dL (8.6-10.3); Globulin 3.1 g/dL (2.4-3.5); Potassium 3.7 mEq/L (3.5-5.1); Total Protein 6.8 g/dL (6.4-8.9)
[2019-01-07] MEDS ORDERED: Isovue-370 500 ML BOTTLE PO ONE (10:37)
[2019-01-07 11:12] LABS: Bilirubin,Urine Negative (Negative); Blood,Urine Negative (Negative); Clarity,Urine Cloudy (Clear); Color,Urine Yellow (Yellow); Glucose,Urine (UA) Normal (Normal); Ketones,Urine Negative (Negative); Leukocyte Esterase,Urine Moderate (Negative); Nitrite,Urine Negative (Negative); Protein,Urine Negative (Neg-Trace); Specific Gravity,Urine 1.022 (1.010-1.025); Urobilinogen,Urine Normal (Normal)
[2019-01-07 11:15] LABS: Bacteria,Urine Many per hpf (None-Few); Hyaline Casts,Urine None Seen per lpf (None-Few); Squamous Epithelial Cell,Urine Many per lpf (None-Few); WBC,Urine 50-100 per hpf (0-3)
[2019-01-07] MEDS ORDERED: cefTRIAXone 1,000 MG in Water for inj. (sterile) 10 ML IVP STA (14:00)
--- NOTE | 2019-01-07 17:47 | Internal Med History&Physical ---
Date of Encounter: 01/07/19 Time of Encounter: 15:00 Internal Medicine - H&P: HPI Chief complaint: oozing along the ostomy site History of present illness: The patient is a 73-year-old male with a past medical history significant for coronary artery disease, atrial fibrillation, and remote history of rectal cancer status post colectomy with primary anastomosis in addition to chemoradiation therapy, and a recent history of having abdominal distention and colonic obstruction at the level of his prior 2004 colon procto-anastomosis requiring a Cross's procedure performed on 10/05/2018 presents to the emergency room with oozing along the ostomy site. Patient states that he has had issues with the stoma narrowing and required dilation in the past. the patient denies nausea, vomiting, urinary symptoms. The patient was evaluated by the ER staff and his laboratory data was suggestive of urinate tract infection, he was started by him on empiric antibiotics. He will be admitted for further evaluation and management by acute surgery team. Past Med Surg Social Fam HX - Past Medical History Medical history: atrial fibrillation, cancer, coronary artery disease, diabetes, glaucoma, kidney stones, renal disease Additional medical history: rectal cancer Psychiatric history: anxiety, depression - Past Surgical History Surgical History: pacemaker/AICD, other Additional surgical history: colon resection - Social History Smoking Status: Never smoker Smokeless Tobacco Status: No Alcohol use: none Drug use: none - Family History Father Living Status: Hx Family Cardiac Disorders: Yes Mother Living Status: Internal Medicine - H&P: Meds Ascorbic Acid [Vitamin C] 1,000 mg PO DAILY 12/31/15 [History] Metoprolol [Lopressor] 100 mg PO BID 12/31/15 [History] Multivitamin [One Daily Essential] 1 tab PO DAILY 12/31/15 [History] Brimonidine Tartrate/Timolol [Combigan 0.2%-0.5% Eye Drops] 1 drop RIGHT EYE BID 10/18/16 [History] Insulin DETEMIR [Levemir Flextouch] 12 unit SQ BID 11/09/16 [History] Amiodarone [Cordarone] 200 mg PO DAILY 08/04/17 [History] Zolpidem [Ambien] 10 mg PO HS 08/04/17 [History] Bimatoprost [Lumigan] 1 drop RIGHT EYE HS 11/02/17 [History] Calcium Carbonate [Calcium] 600 mg PO DAILY 11/02/17 [History] Dorzolamide [Trusopt] 1 drop RIGHT EYE TID 11/02/17 [History] Tolterodine Tartrate [Detrol] 2 mg PO BID 11/02/17 [History] Docusate [Colace] 100 mg PO DAILY #14 capsule 12/06/18 [Rx] Amlodipine Besylate 10 mg PO DAILY 01/09/19 [History] Aspirin 325 mg PO DAILY 01/09/19 [History] Glimepiride [Amaryl] 4 mg PO DAILY 01/09/19 [History] Insulin ASPART [Novolog Flexpen] 4 - 8 unit SQ TIDWM 01/09/19 [History] Allergy/AdvReac Type Severity Reaction Status Date / Time Penicillins Allergy Unknown Hives Verified 01/07/19 08:14 All Systems PM: A 10-system review of systems was performed and is negative for pertinent findings except as documented above in the HPI. - Constitutional Vitals: Temp Pulse Resp BP Pulse Ox 97.5 F L 59 16 151/83 99 01/07/19 08:18 01/07/19 16:09 01/07/19 17:15 01/07/19 17:15 01/07/19 16:09 General appearance: Present: A&O X 3 Exam: ` - Head Head exam: Present: atraumatic, normocephalic - Neck Neck exam general surgery: Present: supple, trachea midline. Absent: lymphadenopathy - Respiratory Respiratory exam: Present: CTAB. Absent: accessory muscle use, rales, rhonchi, wheezes - Cardiovascular Cardiovascular exam: Present: RRR, +S1, +S2. Absent: diastolic murmur, gallop, rubs, systolic murmur - GI/Abdominal GI/Abdominal exam: Present: distended, normal bowel sounds, soft, tenderness, no peritoneal signs Additional comments: Colostomy in place in the left lower abdomen - Extremities Exam Extremities exam: Present: warm, radial pulses palpable and symmetrical. Absent: calf tenderness, cyanotic, pedal edema Internal Med - H&P Results - Labs CBC & Chem 7: 01/16/19 05:12 01/16/19 05:12 Labs: Short CBC 01/07/19 Range/Units 08:28 WBC 9.5 (4.3-11.1) K/mcL Hgb 12.9 (12.9-16.9) g/dL Hct 40.0 (37.5-50.1) % Plt Count 196 (140-400) K/mcL Neutrophils # 7.0 (1.6-8.9) K/mcL BMP 01/07/19 08:46 Sodium 139 Potassium 3.7 Chloride 109 H Carbon Dioxide 25 BUN 19 Creatinine 1.45 H Glucose 119 H Calcium 9.2 Liver Function 01/07/19 Range/Units 08:46 Total Bilirubin 0.7 (0.3-1.0) mg/dL Direct Bilirubin 0.1 (0.0-0.2) mg/dL AST 11 L (13-39) Units/L ALT 9 (7-52) Units/L Alkaline Phosphatase 63 (34-104) Units/L Albumin 3.7 (3.5-5.7) g/dL Urine 01/07/19 Range/Units 11:03 Urine Color Yellow (Yellow) Urine Clarity Cloudy A (Clear) Urine pH 6.0 (5.0-8.0) pH Units Ur Specific [place] 1.022 (1.010-1.025) Urine Protein Negative (Neg-Trace) mg/dL Urine Glucose (UA) Normal (Normal) mg/dL - Impressions ITS Impressions Abdomen/Pelvis CT 01/07/19 10:15 IMPRESSION: Wall thickening and inflammatory changes involving the descending colon to the level of the ostomy, overall similar to the prior study. Findings could represent residual infectious/inflammatory colitis. Moderate stool burden throughout the colon. Findings again could represent stricture at the ostomy site. Chronic left-sided hydronephrosis due to tethering of the ureter by the presacral soft tissue thickening. Presacral soft tissue thickening is likely postsurgical, though consider follow-up with PET-CT if there is suspicion for recurrent disease. D/ / Alberto Charlton MD / Alberto Charlton MD Interpreting Provider: Alberto Charlton MD - Assessment and Plan (1) Colostomy dysfunction Current Visit: Yes Status: Acute Assessment and plan: surgery team was consulted for further evaluation and management, as per ER team , surgery is planning for for dilatation at bedside. (2) Acute on chronic renal insufficiency Current Visit: Yes Status: Acute Assessment and plan: The patient creatinine is elevated from baseline, most likely secondary to vo lume depletion in the setting of decreased oral intake and underlying infectious process in the setting of urine analysis that is suggestive of urinary tract infection, we'll start IV fluid hydration with isotonic saline and, continue to monitor kidney function, renal dosing of medication as the current EGFR, and avoid nephrotoxic medications (3) Atrial fibrillation Current Visit: Yes Status: Chronic Assessment and plan: the patient has history of paroxysmal A. fib, currently is not in chronic antic oagulation Qualifiers: Atrial fibrillation type: paroxysmal Qualified Code(s): I48.0 - Paroxysmal atrial fibrillation (4) Essential hypertension Current Visit: No Status: Chronic Assessment and plan: we will continue home antihypertensive meds and continue to monitor blood pressure while inpatient and adjust regimen as indicated (5) T2DM (type 2 diabetes mellitus) Current Visit: Yes Status: Chronic Assessment and plan: we'll discharge the patient on insulin sliding scale with moderate coverage Qualifiers: Diabetes mellitus terminal gauger supervisor insulin use: with terminal gauger supervisor use Diabetes mellitus complication status: with hyperglycemia Qualified Code(s): E11.65 - Type 2 diabetes mellitus with hyperglycemia; Z79.4 - termite treater (current) use of insulin (6) UTI (urinary tract infection) Current Visit: Yes Status: Ruled-out Assessment and plan: we'll start the patient on antibiotic, obtain urine culture and sensitivity and follow up on the culture results and adjust antibiotic regimen accordingly Qualifiers: Urinary tract infection type: site unspecified Hematuria presence: without hematuria Qualified Code(s): N39.0 - Urinary tract infection, site not specified - Time Spent With Patient Total time spent is greater than 50% in coordination of care (as documented) at patient's floor/unit and/or counseling patient:
[2019-01-07] MEDS ORDERED: D5% in Water 1,000 ML IVC PRN (19:39)
[2019-01-07] MEDS ORDERED: Dextrose Gel 15 GM/37.5 ML TUBE PO PRN ×2 (19:39)
[2019-01-07] MEDS ORDERED: *HR* Dextrose 50 % in Water (Syg) 50 ML SYRINGE IVP PRN (19:39)
[2019-01-07 20:20] LABS: Estimated Average Glucose 131 mg/dl
[2019-01-07] MEDS: Insulin LISPRO 300 UNITS/3 ML VIAL SQ SCH (21:24)
--- NOTE | 2019-01-07 21:40 | AcuteCare Surgery Consult Note ---
Date of Encounter: 01/07/19 Time of Encounter: 21:37 Assessment and Plan (1) Colon obstruction Current Visit: Yes Status: Acute 73M with stricture of colostomy orifice; discussed in detail with the patient that with his recurrent stricture after his procedures, that he will likely need revision of his colostomy; CLD plan for dilatation at bedside will plan for colostomy revision risk stratification needed by primary team/cardiology will cont to follow History of Present Illness Consult date: 01/07/19 History of present illness: 73M PMH significant for CAD, atrial fibrillation, prior history of colon cancer s/p neoadjuvant therapy, low anterior resection, adjuvant therapy 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 The patient has since recovered well, but his health is now impacted by stenosis of the orifice of his colostomy. over the last month he has had difficulty with maintaining the opening as it strictures down, causing constipation/obstruction. he has been dilated twice in the last month only to have recurrence and symptoms related to it. The patient attempted digital dilatation but is unable to get the tip of his finger in. He presents to the ED for further evaluation; Past Med Surg Social Fam HX - Past Medical History Medical history: atrial fibrillation, cancer, coronary artery disease, diabetes, glaucoma, kidney stones, renal disease Additional medical history: rectal cancer, GI bleed r/t Xarelto. Psychiatric history: anxiety, depression - Past Surgical History Surgical History: pacemaker/AICD, other Additional surgical history: colon resection, hernia repair - 11/02/2017; eye sx., Pacer. - Social History Smoking Status: Never smoker Smokeless Tobacco Status: No Alcohol use: none Drug use: none - Family History Father Living Status: Hx Family Cardiac Disorders: Yes Mother Living Status: Medications and Allergies Aspirin 325 mg PO DAILY 04/03/15 [History] Glimepiride [Amaryl] 4 mg PO DAILY 04/03/15 [History] Ascorbic Acid [Vitamin C] 1,000 mg PO DAILY 12/31/15 [History] Metoprolol [Lopressor] 100 mg PO DAILY 12/31/15 [History] Multivitamin [One Daily Essential] 1 tab PO DAILY 12/31/15 [History] Brimonidine Tartrate/Timolol [Combigan 0.2%-0.5% Eye Drops] 1 drop RIGHT EYE BID 10/18/16 [History] Insulin DETEMIR [Levemir Flextouch] 12 unit SQ BID 11/09/16 [History] Amiodarone [Cordarone] 200 mg PO DAILY 08/04/17 [History] Zolpidem [Ambien] 10 mg PO HS 08/04/17 [History] Amlodipine Besylate 10 mg PO DAILY 11/02/17 [History] Bimatoprost [Lumigan] 1 drop RIGHT EYE HS 11/02/17 [History] Calcium Carbonate [Calcium] 600 mg PO DAILY 11/02/17 [History] Dorzolamide [Trusopt] 1 drop RIGHT EYE TID 11/02/17 [History] Tolterodine Tartrate [Detrol] 2 mg PO BID 11/02/17 [History] Docusate [Colace] 100 mg PO DAILY #14 capsule 12/06/18 [Rx] Allergy/AdvReac Type Severity Reaction Status Date / Time Penicillins Allergy Unknown Hives Verified 01/07/19 08:14 Review of Systems All systems PM: 12 point ROS negative besides HPI findings General Surgery Exam Initial Vital Signs Temp Pulse Resp BP Pulse Ox 97.5 F L 60 16 147/77 97 01/07/19 08:12 01/07/19 08:12 01/07/19 08:12 01/07/19 08:12 01/07/19 08:12 - General physical appearance no distress - Eyes normal ocular movement - ENT normocephalic - Neck no lymphadectomy - Respiratory normal expansion, normal respiratory effort - Cardiovascular Cardiovascular exam: Present: RRR - Abdomen Abdomen general surgery: Present: soft, distended (mildly), surgical scars - Rectum Rectum: Present: other (pink viable ostomy; significantly strictured) - Integumentary Integumentary general surgery: Present: warm and dry - Neurologic Present: CN 2-12 grossly intact - Musculoskeletal Present: normal posture - Psychiatric Psychiatric general surgery: Present: A&Ox3 Exam Initial Vital Signs Temp Pulse Resp BP Pulse Ox 97.5 F L 60 16 147/77 97 01/07/19 08:12 01/07/19 08:12 01/07/19 08:12 01/07/19 08:12 01/07/19 08:12 Results - Labs 01/07/19 08:28 01/07/19 08:46 Abnormal lab results RDW 15.4 % (11.5-14.5) H 01/07/19 08:28 PT 12.7 Seconds (9.4-12.1) H 01/07/19 08:35 Chloride 109 mEq/L (98-107) H 01/07/19 08:46 1.45 mg/dL (0.70-1.30) H 01/07/19 08:46 Est GFR ( Amer) 58 (> 60) L 01/07/19 08:46 Est GFR (Non-Af Amer) 47 (> 60) L 01/07/19 08:46 Glucose 119 mg/dL (70-105) H 01/07/19 08:46 6.2 % (-5.6) H 01/07/19 08:46 AST 11 Units/L (13-39) L 01/07/19 08:46 6 Units/L (11-82) L 01/07/19 08:46 Cloudy (Clear) A 01/07/19 11:03 Ur Leukocyte Esterase Moderate (Negative) H 01/07/19 11:03 3-5 per hpf (0-3) H 01/07/19 11:03 50-100 per hpf (0-3) H 01/07/19 11:03 Ur Squamous Epith Cells Many per lpf (None-Few) H 01/07/19 11:03 Many per hpf (None-Few) H 01/07/19 11:03 Ur Culture Indicated? YES (NO) A 01/07/19 11:03 Diabetes panel 01/07/19 01/07/19 Range/Units 08:46 08:46 Sodium 139 (136-145) mEq/L Potassium 3.7 (3.5-5.1) mEq/L Chloride 109 H (98-107) mEq/L Carbon Dioxide 25 (23-29) mEq/L BUN 19 (8-23) mg/dL Creatinine 1.45 H (0.70-1.30) mg/dL Glucose 119 H (70-105) mg/dL Hemoglobin A1c 6.2 H ( - 5.6) % Calcium 9.2 (8.6-10.3) mg/dL AST 11 L (13-39) Units/L ALT 9 (7-52) Units/L Alkaline Phosphatase 63 (34-104) Units/L Albumin 3.7 (3.5-5.7) g/dL Calcium panel 01/07/19 Range/Units 08:46 Calcium 9.2 (8.6-10.3) mg/dL Albumin 3.7 (3.5-5.7) g/dL Pituitary panel 01/07/19 Range/Units 08:46 Sodium 139 (136-145) mEq/L Potassium 3.7 (3.5-5.1) mEq/L Chloride 109 H (98-107) mEq/L Carbon Dioxide 25 (23-29) mEq/L BUN 19 (8-23) mg/dL Creatinine 1.45 H (0.70-1.30) mg/dL Glucose 119 H (70-105) mg/dL Calcium 9.2 (8.6-10.3) mg/dL Adrenal panel 01/07/19 Range/Units 08:46 Sodium 139 (136-145) mEq/L Potassium 3.7 (3.5-5.1) mEq/L Chloride 109 H (98-107) mEq/L Carbon Dioxide 25 (23-29) mEq/L BUN 19 (8-23) mg/dL Creatinine 1.45 H (0.70-1.30) mg/dL Glucose 119 H (70-105) mg/dL Calcium 9.2 (8.6-10.3) mg/dL Total Bilirubin 0.7 (0.3-1.0) mg/dL AST 11 L (13-39) Units/L ALT 9 (7-52) Units/L Alkaline Phosphatase 63 (34-104) Units/L Albumin 3.7 (3.5-5.7) g/dL All other labs normal. - Imaging CT scan - abdomen: report reviewed, image reviewed CT scan - pelvis: report reviewed, image reviewed Consult Discharge Plan - Plan Referrals: Ranjit Rodriguez MD [Primary Care Provider] -
[2019-01-07] MEDS: Latanoprost 2.5 ML BOTTLE RIGHT EYE SCH (21:48)
[2019-01-07] MEDS: Dorzolamide OPTH 10 ML BOTTLE RIGHT EYE SCH (21:49)
[2019-01-07] MEDS ORDERED: *HR* HYDROcodone/Acet 7.5/325 mg TABLET PO ONE (22:03)
[2019-01-07] MEDS ORDERED: 0.9 % Sodium Chloride 1,000 ML IVC SCH (22:30)
[2019-01-08] MEDS ORDERED: Naloxone 0.4 MG/ML INJ IVP PRN (05:54)
[2019-01-08] MEDS ORDERED: Ondansetron 4 MG/2 ML VIAL IVP PRN (05:54)
[2019-01-08] MEDS: 0.9 % Sodium Chloride 1,000 ML IVC SCH (06:49)
[2019-01-08 07:00] LABS: Basophils # 0.1 K/mcL (0.0-0.2); Basophils % 0.4 %; Eosinophils # 0.1 K/mcL (0.0-0.6); Eosinophils % 1.1 %; Hematocrit 43.1 % (37.5-50.1); Hemoglobin 13.7 g/dL (12.9-16.9); Immature Granulocytes % 0.3 % (0-4); Lymphocytes # 1.4 K/mcL (0.6-4.6); Lymphocytes % 12.2 %; Mean Corpuscular HGB Conc 31.8 g/dL (31.6-35.5); Mean Corpuscular Hemoglobin 28.1 pg (28.0-33.3); Mean Corpuscular Volume 88.3 fL (83.0-100.0); Mean Platelet Volume 10.9 fL (9.4-12.4); Monocytes # 1.1 K/mcL (0.0-1.3); Neutrophils # 8.6 K/mcL (1.6-8.9); Platelet Count 218 K/mcL (140-400); Red Blood Count 4.88 M/mcL (4.19-5.50); Red Cell Distribution Width 15.6 % (11.5-14.5); White Blood Count 11.3 K/mcL (4.3-11.1)
[2019-01-08 07:05] LABS: INR 1.1; Prothrombin Time 12.7 Seconds (9.4-12.1)
[2019-01-08 07:08] LABS: Activated Partial Thrombo Time 46.9 Seconds (26.0-36.0)
[2019-01-08 07:19] LABS: Alanine Aminotransferase 10 Units/L (7-52); Albumin 3.9 g/dL (3.5-5.7); Albumin/Globulin Ratio 1.2 (1.1-2.2); Alkaline Phosphatase 73 Units/L (34-104); Aspartate Amino Transferase 12 Units/L (13-39); BUN/Creatinine Ratio 12 (6-26); Bilirubin,Total 0.8 mg/dL (0.3-1.0); Blood Urea Nitrogen 15 mg/dL (8-23); Calcium 9.5 mg/dL (8.6-10.3); Carbon Dioxide 25 mEq/L (23-29); Chloride 103 mEq/L (98-107); Globulin 3.2 g/dL (2.4-3.5); Glucose 102 mg/dL (70-105); Osmolality,Calculated 287 (280-300); Phosphorous 2.7 mg/dL (2.7-4.5); Potassium 4.1 mEq/L (3.5-5.1); Sodium 138 mEq/L (136-145); Total Protein 7.1 g/dL (6.4-8.9); eGFR For African Americans > 60 (> 60); eGFR For Non-African Americans 55 (> 60)
[2019-01-08] MEDS: Insulin LISPRO 300 UNITS/3 ML VIAL SQ SCH ×4 (08:53→23:10)
[2019-01-08] MEDS ORDERED: Metoprolol 100 MG TABLET PO SCH (09:00)
[2019-01-08] MEDS ORDERED: cefTRIAXone 1,000 MG in Water for inj. (sterile) 10 ML IVP SCH (09:00)
[2019-01-08] MEDS ORDERED: *HR* Amiodarone 200 MG TABLET PO SCH (09:00)
[2019-01-08] MEDS ORDERED: Aspirin 325 MG TABLET PO SCH (09:00)
[2019-01-08] MEDS ORDERED: Ascorbic Acid 500 MG TABLET PO SCH (09:00)
[2019-01-08] MEDS ORDERED: Multivit/Ca/Min/Fe/FA 1 TAB TABLET PO SCH (09:00)
[2019-01-08] MEDS ORDERED: amLODIPine 5 MG TABLET PO SCH (09:00)
[2019-01-08] MEDS: Dorzolamide OPTH 10 ML BOTTLE RIGHT EYE SCH ×3 (09:59→23:10)
--- NOTE | 2019-01-08 11:33 | Internal Med Progress Note ---
Hospitalist Progress Note - Encounter Date of Encounter: 01/08/19 Time of Encounter: 10:30 - Subjective Interval History: Denies any dysuria, hematuria, or urinary frequency. No fever overnight. His main complaint leading to the presentation to the ED was inability to get his finger into the stoma to dilate. - Exam Vitals: Temp Pulse Resp BP Pulse Ox 98.1 F 61 15 134/74 97 01/08/19 10:35 01/08/19 10:35 01/08/19 10:35 01/08/19 10:35 01/08/19 10:35 Exam: General: Alert and oriented, not in acute distress. Cardiovascular:Normal S1 & S2, No JVD. Pulse regular. Lungs: clear to auscultation, no wheezes/rales Abdomen:Soft, LLQ stoma noted, unable to visualize the orifice well due to significant stricture Extremities:No deformity or swelling Neurological:Normal cognition and motor skills. Non-focal - Assessment and Plan (1) Colostomy dysfunction Current Visit: Yes Status: Acute Assessment and Plan: for revision of colostomy, NPO appreciate surgery evaluation (2) Pre-op evaluation Current Visit: Yes Status: Acute Assessment and Plan: history of afib s/p PM insertion, no history of CAD Patient does not have any signs and symptoms of ACS, malignant arrhythmia, or decompensated CHF. will obtain EKG RCRI 2 but pt is able to perform > 4 METS at baseline without difficluty no further testing indicated to optimize his cardiovascular status as long as EKG is unchanged (3) Acute on chronic renal insufficiency Current Visit: Yes Status: Acute Assessment and Plan: improved after IVF (4) Atrial fibrillation Current Visit: No Status: Chronic Assessment and Plan: s/p PM insertion, not on AC continue bb and amiodarone (5) UTI (urinary tract infection) Current Visit: Yes Status: Ruled-out Assessment and Plan: although urinalysis was +ve for LE, pt denies any symptoms consistent with UTI given 2 doses of IV Ted, will monitor off abx (6) T2DM (type 2 diabetes mellitus) Current Visit: No Status: Chronic Assessment and Plan: hold off on amaryl medium dose sliding scale DVT Prophylaxis: SQ heparin - Time Spent with Patient Total time spent is greater than 50% in coordination of care (as documented) at patient's floor/unit and/or counseling patient: 25 - 35 minutes Plan of Care Discussed with: patient (discussed with RN) Internal Medicine: Result - Labs CBC & Chem 7: 01/08/19 06:27 01/08/19 06:27 Labs: Short CBC 01/08/19 Range/Units 06:27 WBC 11.3 H (4.3-11.1) K/mcL Hgb 13.7 (12.9-16.9) g/dL Hct 43.1 (37.5-50.1) % Plt Count 218 (140-400) K/mcL Neutrophils # 8.6 (1.6-8.9) K/mcL BMP 01/08/19 06:27 Sodium 138 Potassium 4.1 Chloride 103 Carbon Dioxide 25 BUN 15 Creatinine 1.28 Glucose 102 Calcium 9.5 Liver Function 01/08/19 Range/Units 06:27 Total Bilirubin 0.8 (0.3-1.0) mg/dL AST 12 L (13-39) Units/L ALT 10 (7-52) Units/L Alkaline Phosphatase 73 (34-104) Units/L Albumin 3.9 (3.5-5.7) g/dL - ABG Interpretation ABG results: PT/INR, D-dimer PT 12.7 Seconds (9.4-12.1) H 01/08/19 06:27 Consult Discharge Plan - Plan Referrals: Rodriguez,Ranjit Weston MD [Primary Care Provider] - (4) Atrial fibrillation Qualifiers: Atrial fibrillation type: paroxysmal Qualified Code(s): I48.0 - Paroxysmal atrial fibrillation (5) UTI (urinary tract infection) Qualifiers: Urinary tract infection type: site unspecified Hematuria presence: without hematuria Qualified Code(s): N39.0 - Urinary tract infection, site not specified (6) T2DM (type 2 diabetes mellitus) Qualifiers: 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
--- NOTE | 2019-01-08 12:35 | AcuteCareSurgery Progress Note ---
<Lu Calix - Last Filed: 01/08/19 12:51> Date of Encounter: 01/08/19 Time of Encounter: 12:35 - Assessment and Plan (1) Colon obstruction Current Visit: Yes Status: Acute Presents with stenosis of the orifice of his colostomy. Has been dilated twice in the past month, currently unable to fit tip of finger into ostomy. 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 Currently nothing by mouth, plan for revision of colostomy this afternoon Antibiotic coverage-ceftriaxone Bowel regimen-Colace DVT prophylaxis- subcutaneous heparin Continue to monitor stool and urine output Trend labs Subjective Narrative: Patient seen and examined at bedside today. He states that he is doing well and has mild cramping pain when stool is passing through colostomy. He admits to a small amount of liquid stool output into colostomy overnight. He is interested in revision of stoma which is planned for later this afternoon. He denies nausea, vomiting, fever, chills, chest pain, dysuria, hematuria, calf pain. Objective Vital Signs - Last 8 Hours Temp Pulse Resp BP Pulse Ox 01/08/19 10:35 98.1 F 61 15 134/74 97 01/08/19 06:46 97.9 F 61 16 131/69 96 Intake and Output 01/07/19 01/08/19 01/08/19 23:59 07:59 15:59 Intake Total Output Total 0 / 0 0 / 0 Balance Intake: IV Fluids Rocephin 1,000 MG In Water for inj. (sterile) 10 ML @ 600 mls/ hr IVP DAILY [facility] Rx#:[id number] Oral 0 / 0 Output: Urine 0 / 0 Stool 0 / 0 0 / 0 Other: # Voids 1 0 3 # Bowel Movements 0 Weight 86.1 kg Blood Glucose* 104 120 99 Patient Weight 01/08/19 23:59 Weight 86.1 kg - General physical appearance well developed, well nourished, no distress - Eyes PERRL, normal ocular movement - ENT normal mucosa, no hearing loss - Neck Neck exam: no masses, trachea midline - Respiratory normal expansion, normal respiratory effort, clear to auscultation - Cardiovascular Cardiovascular exam: Present: RRR, no murmurs/rubs/gallops. Absent: JVD - Abdomen Abdomen: Present: bowel sounds present, soft, non tender Additional Comments: Colostomy bag in place over the left lower quadrant, liquid stool in bag. - Integumentary no rash, no abnormal pigmentation - Neurologic CN 2-12 grossly intact, normal coordination, normal sensation - Musculoskeletal normal posture - Psychiatric oriented to time, oriented to person, oriented to place, speech is normal, memory intact - Labs 01/08/19 06:27 01/08/19 06:27 Diabetes panel 01/07/19 01/08/19 Range/Units 08:46 06:27 Sodium 138 (136-145) mEq/L Potassium 4.1 (3.5-5.1) mEq/L Chloride 103 (98-107) mEq/L Carbon Dioxide 25 (23-29) mEq/L BUN 15 (8-23) mg/dL Creatinine 1.28 (0.70-1.30) mg/dL Glucose 102 (70-105) mg/dL Hemoglobin A1c 6.2 H ( - 5.6) % Calcium 9.5 (8.6-10.3) mg/dL AST 12 L (13-39) Units/L ALT 10 (7-52) Units/L Alkaline Phosphatase 73 (34-104) Units/L Albumin 3.9 (3.5-5.7) g/dL Calcium panel 01/08/19 Range/Units 06:27 Calcium 9.5 (8.6-10.3) mg/dL Phosphorus 2.7 (2.7-4.5) mg/dL Albumin 3.9 (3.5-5.7) g/dL Pituitary panel 01/08/19 Range/Units 06:27 Sodium 138 (136-145) mEq/L Potassium 4.1 (3.5-5.1) mEq/L Chloride 103 (98-107) mEq/L Carbon Dioxide 25 (23-29) mEq/L BUN 15 (8-23) mg/dL Creatinine 1.28 (0.70-1.30) mg/dL Glucose 102 (70-105) mg/dL Calcium 9.5 (8.6-10.3) mg/dL Adrenal panel 01/08/19 Range/Units 06:27 Sodium 138 (136-145) mEq/L Potassium 4.1 (3.5-5.1) mEq/L Chloride 103 (98-107) mEq/L Carbon Dioxide 25 (23-29) mEq/L BUN 15 (8-23) mg/dL Creatinine 1.28 (0.70-1.30) mg/dL Glucose 102 (70-105) mg/dL Calcium 9.5 (8.6-10.3) mg/dL Total Bilirubin 0.8 (0.3-1.0) mg/dL AST 12 L (13-39) Units/L ALT 10 (7-52) Units/L Alkaline Phosphatase 73 (34-104) Units/L Albumin 3.9 (3.5-5.7) g/dL Consult Discharge Plan - Plan Referrals: Ranjit Rodriguez MD [Primary Care Provider] - <Ranjit Zhong - Last Filed: 01/08/19 14:33> Date of Encounter: 01/08/19 Objective Vital Signs - Last 8 Hours Temp Pulse Resp BP Pulse Ox 01/08/19 10:35 98.1 F 61 15 134/74 97 01/08/19 06:46 97.9 F 61 16 131/69 96 Intake and Output 01/07/19 01/08/19 01/08/19 23:59 07:59 15:59 Intake Total Output Total 0 / 0 0 / 0 Balance Intake: IV Fluids Rocephin 1,000 MG In Water for inj. (sterile) 10 ML @ 600 mls/ hr IVP DAILY [facility] Rx#:[id number] Oral 0 / 0 Output: Urine 0 / 0 Stool 0 / 0 0 / 0 Other: Meal NPO # Voids 1 0 3 # Bowel Movements 0 Weight 86.1 kg Blood Glucose* 104 120 99 Patient Weight 01/08/19 23:59 Weight 86.1 kg - Labs 01/08/19 06:27 01/08/19 06:27 Diabetes panel 01/07/19 01/08/19 Range/Units 08:46 06:27 Sodium 138 (136-145) mEq/L Potassium 4.1 (3.5-5.1) mEq/L Chloride 103 (98-107) mEq/L Carbon Dioxide 25 (23-29) mEq/L BUN 15 (8-23) mg/dL Creatinine 1.28 (0.70-1.30) mg/dL Glucose 102 (70-105) mg/dL Hemoglobin A1c 6.2 H ( - 5.6) % Calcium 9.5 (8.6-10.3) mg/dL AST 12 L (13-39) Units/L ALT 10 (7-52) Units/L Alkaline Phosphatase 73 (34-104) Units/L Albumin 3.9 (3.5-5.7) g/dL Calcium panel 01/08/19 Range/Units 06:27 Calcium 9.5 (8.6-10.3) mg/dL Phosphorus 2.7 (2.7-4.5) mg/dL Albumin 3.9 (3.5-5.7) g/dL Pituitary panel 01/08/19 Range/Units 06:27 Sodium 138 (136-145) mEq/L Potassium 4.1 (3.5-5.1) mEq/L Chloride 103 (98-107) mEq/L Carbon Dioxide 25 (23-29) mEq/L BUN 15 (8-23) mg/dL Creatinine 1.28 (0.70-1.30) mg/dL Glucose 102 (70-105) mg/dL Calcium 9.5 (8.6-10.3) mg/dL Adrenal panel 01/08/19 Range/Units 06:27 Sodium 138 (136-145) mEq/L Potassium 4.1 (3.5-5.1) mEq/L Chloride 103 (98-107) mEq/L Carbon Dioxide 25 (23-29) mEq/L BUN 15 (8-23) mg/dL Creatinine 1.28 (0.70-1.30) mg/dL Glucose 102 (70-105) mg/dL Calcium 9.5 (8.6-10.3) mg/dL Total Bilirubin 0.8 (0.3-1.0) mg/dL AST 12 L (13-39) Units/L ALT 10 (7-52) Units/L Alkaline Phosphatase 73 (34-104) Units/L Albumin 3.9 (3.5-5.7) g/dL - Attending Attestation I examined this patient and my medical decision-making was reviewed with the Resident Physician. I agree with the documented findings, disposition and treatment plan as described except to the extent set forth below. The patient is seen and evaluated on acute care surgery rounds with the acute care surgery team. The patient has skin level colostomy stenosis. This has been dilated multiple times. He now presents for revision of his colostomy stoma area we will plan revision later today. Ranjit Zhong MD FACS
--- NOTE | 2019-01-08 14:52 | Anesthesia Evaluation PreOp ---
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 + glaucoma) Anesthesia History: No Prior Anesthetic Complications, Past Anesthesia Alcohol Use: none Drug use: none Medications and Allergies Aspirin 325 mg PO DAILY 04/03/15 [History] Glimepiride [Amaryl] 4 mg PO DAILY 04/03/15 [History] Ascorbic Acid [Vitamin C] 1,000 mg PO DAILY 12/31/15 [History] Metoprolol [Lopressor] 100 mg PO DAILY 12/31/15 [History] Multivitamin [One Daily Essential] 1 tab PO DAILY 12/31/15 [History] Brimonidine Tartrate/Timolol [Combigan 0.2%-0.5% Eye Drops] 1 drop RIGHT EYE BID 10/18/16 [History] Insulin DETEMIR [Levemir Flextouch] 12 unit SQ BID 11/09/16 [History] Amiodarone [Cordarone] 200 mg PO DAILY 08/04/17 [History] Zolpidem [Ambien] 10 mg PO HS 08/04/17 [History] Amlodipine Besylate 10 mg PO DAILY 11/02/17 [History] Bimatoprost [Lumigan] 1 drop RIGHT EYE HS 11/02/17 [History] Calcium Carbonate [Calcium] 600 mg PO DAILY 11/02/17 [History] Dorzolamide [Trusopt] 1 drop RIGHT EYE TID 11/02/17 [History] Tolterodine Tartrate [Detrol] 2 mg PO BID 11/02/17 [History] Docusate [Colace] 100 mg PO DAILY #14 capsule 12/06/18 [Rx] Allergy/AdvReac Type Severity Reaction Status Date / Time Penicillins Allergy Unknown Hives Verified 01/07/19 08:14 - Meds/Allergy Pre-op Review Medications Reviewed: Yes Allergies Reviewed: Yes Beta Blockers on Current Med List: Yes (metoprolol) Anesthesia Results - Labs 01/08/19 06:27 01/08/19 06:27 Laboratory Tests 01/08/19 06:27 PT 12.7 H INR 1.1 APTT 46.9 H - Imaging EKG: report reviewed (paced) Anesthesia Exam Vital Signs/O2 Sat/Glucose, Most Recent Temp Pulse Resp BP Pulse Ox 98.1 F 61 15 134/74 97 01/08/19 10:35 01/08/19 10:35 01/08/19 10:35 01/08/19 10:35 01/08/19 10:35 Blood Glucose* 99 Weight: 86 kg NPO (# of Hours): > 8 hr - HEENT Pupil (Motor): Pupils equal Mallampati: III Teeth: Edentulous Oral Opening: Greater than 3 - RN PERIOPERATIVE LOC: Oriented RN PERIOPERATIVE Motor: Normal RUE, Normal LUE, Normal RLE, Normal LLE, Normal Face RN PERIOPERATIVE Sensory: Normal: RUE, LUE, RLE, LLE, Face - Cardiac Rhythm: Regular Murmur: None - Pulmonary Breath Sounds: bilateral Clear Respiratory Effort: Symmetrical Anesthesia Assess/Plan ASA Score: 4 (CKD, Afib, HTN, pacemaker, DM) Level of consciousness: Cooperative, Oriented Anesthetic Plan: General Monitoring Plan: Standard Monitors Recovery Plan: PACU
[2019-01-08] MEDS ORDERED: *HR* Labetalol 20 MG/4 ML SYRINGE IVP PRN (15:05)
[2019-01-08] MEDS ORDERED: Acetaminophen IV 1,000 MG/100 ML INFUS..BTL IVPB ONE (15:05)
[2019-01-08] MEDS ORDERED: Ondansetron 4 MG/2 ML VIAL IVP ONE (15:05)
[2019-01-08] MEDS ORDERED: Albuterol 2.5 MG/3 ML NEBULIZER IH ONE (15:05)
[2019-01-08] MEDS ORDERED: *HR* HYDROmorphone (PF) 1 MG/ML SYRINGE IVP PRN (15:05)
[2019-01-08] MEDS ORDERED: *HR* Promethazine 25 MG/ML VIAL IVP PRN (15:05)
[2019-01-08] MEDS ORDERED: *HR* FentaNYL (PF) 100 MCG/2 ML VIAL ONE (15:17)
[2019-01-08] MEDS ORDERED: *HR* Propofol 200 MG/20 ML VIAL IVP ONE (15:18)
[2019-01-08] MEDS ORDERED: *HR* Succinylcholine 200 MG/10 ML VIAL IVP ONE (15:20)
[2019-01-08] MEDS ORDERED: Lidocaine -MPF 2% 2 ML VIAL ONE (15:20)
[2019-01-08] MEDS ORDERED: *HR* Rocuronium Bromide 50 MG/5 ML VIAL ONE ×3 (15:20→20:06)
[2019-01-08] MEDS ORDERED: CefOXitin 2,000 MG VIAL ONE ×2 (15:58→20:11)
[2019-01-08] MEDS ORDERED: EPHEDrine 50 MG/ML VIAL ONE ×3 (16:00→21:09)
[2019-01-08] MEDS ORDERED: Esmolol 100 MG/10 ML VIAL IVP ONE (16:06)
[2019-01-08] MEDS ORDERED: Ondansetron 4 MG/2 ML VIAL ONE (16:49)
[2019-01-08] MEDS ORDERED: Dexamethasone 4 MG/ML VIAL ONE (16:49)
[2019-01-08] MEDS ORDERED: *HR* Heparin 5,000 UNIT/ML VIAL SQ SCH (18:00)
--- NOTE | 2019-01-08 19:17 | Event Note ---
Date of Encounter: 01/08/19 Time of Encounter: 19:16 I was called in to the operative room by Dr. Zhong. They had difficulty placing the catheter. Patient's phallus was prepped and draped in normal sterile fashion. This was done under the sterile drapes. I then with some difficulty placed a 14-[place] coude catheter. Patient had some resistance in the distal aspect of his urethra but was able to finally negotiate a 14-[place] catheter into the patient's bladder. Immediate return of clear yellow urine was obtained. 10 mL of sterile water placed in the balloon. Okay for primary care team to remove catheter as per schedule.
[2019-01-08] MEDS ORDERED: *HR* PHENYLEPHRINE 1,000 MCG/10 ML SYRINGE IVP ONE (20:10)
[2019-01-08] MEDS ORDERED: CefOXitin 1,000 MG VIAL ONE (20:33)
[2019-01-08] MEDS ORDERED: *HR* HYDROMORPHONE 2 MG/ML VIAL ONE (21:31)
--- NOTE | 2019-01-08 21:34 | Operative Note ---
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) Procedure: #1 lysis of adhesions times 4 hours #2 unavoidable enterotomy times 4 (secondary to radiation and recent surgery) #3 takedown colostomy and left colon resection #4 transverse colostomy #5 small bowel resection with primary anastomosis #gastrostomy tube Anesthesia: GETA Surgeon: Ranjit Zhong Was there an education assistant present: Yes Book Cutter: Nohelia Marcos Estimated blood loss (cc): 150 Specimen: #1 left colon #2 small bowel segment Condition: stable Disposition: PACU Procedure in Detail: After informed consent the patients taking major operating suite placed in the supine position and given adequate general endotracheal anesthesia. Abdomen was prepped and draped in sterile fashion utilizing Betadine and standard draping techniques. I was unable to admit the tip of my pinky finger into the ostomy. Timeout was taken and the patient was identified. Made a circumferential dissection around the ostomy and immediately encountered dense scar tissue that was rock hard. The dissection very difficult I dissected down to level of fascia. It was immediately apparent that the colon wall was in terrible condition and likely ischemic. At this point I abandoned the straightforward skin level approach to revision of the stenotic colostomy. The problem now is much more severe and consistent with ischemia at the level of the colon. I performed a midline laparotomy and immediately encountered tremendously dense ad hesions. We slowed to a paced rhythm allow complete identification of the small bowel. I performed lysis of adhesions for the next 3 hours without enterotomy. During this period of time I decided to place a Salazar catheter but the patient had a urethral stricture Dr. Abraham was kind enough to come into the room and placed a Salazar catheter for us. The patient tolerated this well. At this point the adhesions in the central abdomen and pelvis have been clear without enterotomy the adhesions on the left side of the abdomen where I believe the patient had colon ischemia were now encountered. The level of adhesions was simply unbelievable. The soft tissues in the area of the colostomy were rock hard with invisible tissue planes. This led to unavoidable enterotomy at least 4 different areas. 3 on the small bowel and one on the colon. After a great deal of effort I was able to isolate the segment of small bowel with the enterotomies. These were concentrated in the mid jejunum. I resected about 50 cm of small bowel. This is done between clamps and hemostatic ligatures. I performed a functional end-to-end anastomosis using ANUSHA. The enterotomy was closed with a TA 60 and I circumferentially reinforced the anastomosis. I ran the small bowel 2 more times from ligament of Treitz to the ileocecal valve with no evidence of enterotomy attention was then turned to mobilizing the splenic flexure the colon. This was nearly impossible because of the severity of the adhesions in the left gutter. We worked very diligently and carefully to protect the ureter and to protect the spleen. I was finally able to divide the transverse colon with ANUSHA and removed the distal transverse colon splenic flexure and remaining left colon. With the degree of small bowel dissection I decided to place gastrostomy tube for long-term gastric drainage. I placed a gastrostomy tube through the left upper quadrant and into the stomach. This was secured with a pursestring stitch and I secured the stomach to the anterior abdominal wall with 3 horizontal mattress stitches of 2-0 silk. This gave an excellent technical result. The transverse colon was brought out in the right upper quadrant with excellent blood supply. I irrigated the abdomen with copious amounts of antibiotic containing solution. There was stool spillage from the unavoidable enterotomies. The midline was closed with looped 0 PDS. The colostomy fascia in the left lower quadrant was closed with interrupted #1 PDS. The skin was considered contaminated. The skin was closed in groups of 3 wilmar with iodoform packing I consider this an open wound. The colostomy was then matured with interrupted 3-0 Vicryl. Patient tolerated the procedure well total blood loss was 150 mL.
[2019-01-08] MEDS ORDERED: D5% in Water 1,000 ML IVC PRN (22:48)
[2019-01-08] MEDS ORDERED: Dextrose Gel 15 GM/37.5 ML TUBE PO PRN ×2 (22:48)
--- NOTE | 2019-01-08 22:49 | Anesthesia Evaluation Post Op ---
Date of Encounter: 01/08/19 Time of Encounter: 22:50 - Vital Signs Vital Signs: Vital Signs/O2 Sat/Glucose, Most Current Temp Pulse Resp BP Pulse Ox 01/08/19 22:30 97.8 F 62 18 101/56 93 01/08/19 22:15 98.2 F 61 20 99/54 94 01/08/19 22:05 60 20 99/54 96 01/08/19 21:55 60 20 103/55 100 01/08/19 21:45 97 F L 60 18 105/54 100 - Lungs Lungs: Clear Ascult./Percussion - Airway Airway: Non-obstructed - Cardiovascular Baseline Rhythm - Mental Status Mental Status: Alert & Oriented, Answers Appropriately - Pain Pain Scale: 1 - Nausea Vomiting Nausea Vomiting: Not Present - Hydration Hydration: NPO - Discharge PostOp Status: Transfer Patient to floor
[2019-01-08] MEDS: Latanoprost 2.5 ML BOTTLE RIGHT EYE SCH (23:10)
[2019-01-09] MEDS ORDERED: cefOXitin 2,000 MG in Water for inj. (sterile) 20 ML IVP SCH
[2019-01-09] MEDS: *HR* Metoprolol 5 MG/5 ML VIAL IVP SCH ×2 (01:44→05:12)
[2019-01-09] MEDS: 0.9 % Sodium Chloride 1,000 ML IVC SCH ×3 (02:06→11:13)
[2019-01-09 04:41] LABS: Hematocrit 45.9 % (37.5-50.1); Hemoglobin 14.1 g/dL (12.9-16.9); Mean Corpuscular HGB Conc 30.7 g/dL (31.6-35.5); Mean Corpuscular Hemoglobin 27.8 pg (28.0-33.3); Mean Corpuscular Volume 90.4 fL (83.0-100.0); Mean Platelet Volume 11.4 fL (9.4-12.4); Platelet Count 325 K/mcL (140-400); Red Blood Count 5.08 M/mcL (4.19-5.50); Red Cell Distribution Width 15.6 % (11.5-14.5)
[2019-01-09 04:54] LABS: White Blood Count 5.5 K/mcL (4.3-11.1)
[2019-01-09 04:57] LABS: BUN/Creatinine Ratio 11 (6-26); Blood Urea Nitrogen 23 mg/dL (8-23); Calcium 8.6 mg/dL (8.6-10.3); Carbon Dioxide 16 mEq/L (23-29); Chloride 106 mEq/L (98-107); Glucose 182 mg/dL (70-105); Osmolality,Calculated 294 (280-300); Potassium 4.8 mEq/L (3.5-5.1); Sodium 138 mEq/L (136-145); eGFR For African Americans 38 (> 60); eGFR For Non-African Americans 32 (> 60)
[2019-01-09] MEDS ORDERED: 0.9 % Sodium Chloride 1,000 ML IVC ONE (05:14)
[2019-01-09 05:28] LABS: Large Platelets Present (Not Present); Lymphocytes # 0.9 K/mcL (0.6-4.6); Monocytes # 0.4 K/mcL (0.0-1.3); Neutrophils # 4.1 K/mcL (1.6-8.9); Platelet Estimate Normal (Normal)
--- NOTE | 2019-01-09 06:00 | Event Note ---
Date of Encounter: 01/09/19 Time of Encounter: 04:53 Alerted by pts. nurse CORETTA Romo that the pts. BP was 75/51 via automatic. Pt. was awake and alert. Fluids were running at 125 mls/hr. Pt. had surgery overnight which was more extensive than originally planned. Asked pts. nurse to obtain manual BP which was 80/60. Nurse reported that the pt. stated he felt lightheaded and felt as though he was going to pass out. Went to see the pt. immediately who was resting in bed. Pt. was very pale and had wet wash cloths on his head. Pt. reported he felt hot. I ordered a 1L bolus to start now. VS at this time: BP 83/57, HR 75, SpO2 95% on 2L via NC, Temp 97.6F, and RR 16. Pts. a.m. labs had already been drawn so I was most concerned w/Hgb d/t pts. pale presentation. Hgb is 14.1 this morning. Renal function has reduced. GFR now 32, down from 55 yesterday. Creatinine has increased from 1.28 yesterday to 2.06 this morning. Nurse reports minimal urinary output in Salazar since coming back from Surgery. Glucose 184 at the time of my examination. During bolus, BP has improved systolically to 95. I remained on 3A to observe this pt. to ensure a Rapid Response was avoided. Pt. is resting in bed currently. Nurse instructed to continue monitoring this pt. very closely and alert me immediately of any adverse changes. A.M. team will need to monitor closely to prevent decompensation.
[2019-01-09] MEDS: *HR* Heparin 5,000 UNIT/ML VIAL SQ SCH ×2 (06:12→17:16)
[2019-01-09] MEDS ORDERED: Ringers Solution, Lactated 500 ML IVC ONE (07:14)
[2019-01-09] MEDS ORDERED: Ringers Solution, Lactated 1,000 ML ONE (07:16)
[2019-01-09] MEDS ORDERED: Insulin LISPRO 300 UNITS/3 ML VIAL SQ SCH ×3 (07:30→21:00)
[2019-01-09] MEDS ORDERED: levoFLOXacin 750 MG/150 ML 750 MG/150 ML BAG IVPB SCH (08:00)
[2019-01-09] MEDS ORDERED: 0.9 % Sodium Chloride 1,000 ML IVC SCH (08:00)
[2019-01-09] MEDS: MetroNIDAZOLE 500 MG/100 ML 500 MG/100 ML BAG IVPB SCH ×2 (08:45→16:32)
[2019-01-09] MEDS: Cefepime HCl 2,000 MG in Water for inj. (sterile) 20 ML IVP SCH ×2 (08:45→16:42)
--- NOTE | 2019-01-09 10:42 | Pulmonology Consult Note ---
<Avi Steele W - Last Filed: 01/09/19 13:55> Date of Encounter: 01/09/19 Medications and Allergies Ascorbic Acid [Vitamin C] 1,000 mg PO DAILY 12/31/15 [History] Metoprolol [Lopressor] 100 mg PO BID 12/31/15 [History] Multivitamin [One Daily Essential] 1 tab PO DAILY 12/31/15 [History] Brimonidine Tartrate/Timolol [Combigan 0.2%-0.5% Eye Drops] 1 drop RIGHT EYE BID 10/18/16 [History] Insulin DETEMIR [Levemir Flextouch] 12 unit SQ BID 11/09/16 [History] Amiodarone [Cordarone] 200 mg PO DAILY 08/04/17 [History] Zolpidem [Ambien] 10 mg PO HS 08/04/17 [History] Bimatoprost [Lumigan] 1 drop RIGHT EYE HS 11/02/17 [History] Calcium Carbonate [Calcium] 600 mg PO DAILY 11/02/17 [History] Dorzolamide [Trusopt] 1 drop RIGHT EYE TID 11/02/17 [History] Tolterodine Tartrate [Detrol] 2 mg PO BID 11/02/17 [History] Docusate [Colace] 100 mg PO DAILY #14 capsule 12/06/18 [Rx] Amlodipine Besylate 10 mg PO DAILY 01/09/19 [History] Aspirin 325 mg PO DAILY 01/09/19 [History] Glimepiride [Amaryl] 4 mg PO DAILY 01/09/19 [History] Insulin ASPART [Novolog Flexpen] 4 - 8 unit SQ TIDWM 01/09/19 [History] Allergy/AdvReac Type Severity Reaction Status Date / Time Penicillins Allergy Unknown Hives Verified 01/07/19 08:14 All Systems: The remainder of the systems were reviewed and are negative Physical Examination Vital Signs: Vital Signs, Last 4 Hours Temp Pulse Resp BP Pulse Ox 01/09/19 13:00 71 28 107/70 95 01/09/19 12:00 75 28 98/65 95 01/09/19 11:00 74 30 97/64 95 01/09/19 10:42 97.5 F L 73 30 111/57 95 Results - Laboratory Findings CBC and BMP: 01/09/19 03:58 01/09/19 03:58 PT/INR, D-dimer PT 12.7 Seconds (9.4-12.1) H 01/08/19 06:27 Abnormal lab findings: Abnormal lab results WBC 11.3 K/mcL (4.3-11.1) H 01/08/19 06:27 MCH 27.8 pg (28.0-33.3) L 01/09/19 03:58 MCHC 30.7 g/dL (31.6-35.5) L 01/09/19 03:58 RDW 15.6 % (11.5-14.5) H 01/09/19 03:58 12.0 % (0-4) H 01/09/19 03:58 2.0 % (0) H 01/09/19 03:58 Present (Not Present) A 01/09/19 03:58 PT 12.7 Seconds (9.4-12.1) H 01/08/19 06:27 APTT 46.9 Seconds (26.0-36.0) H 01/08/19 06:27 Chloride 109 mEq/L (98-107) H 01/07/19 08:46 Carbon Dioxide 16 mEq/L (23-29) L 01/09/19 03:58 2.06 mg/dL (0.70-1.30) H 01/09/19 03:58 Est GFR ( Amer) 38 (> 60) L 01/09/19 03:58 Est GFR (Non-Af Amer) 32 (> 60) L 01/09/19 03:58 Glucose 182 mg/dL (70-105) H 01/09/19 03:58 POC Glucose 163 mg/dL (70-99) H 01/09/19 10:29 6.2 % (-5.6) H 01/07/19 08:46 Lactic Acid 5.1 mmol/L (0.5-2.2) H* 01/09/19 11:52 AST 12 Units/L (13-39) L 01/08/19 06:27 6 Units/L (11-82) L 01/07/19 08:46 Cloudy (Clear) A 01/07/19 11:03 Ur Leukocyte Esterase Moderate (Negative) H 01/07/19 11:03 3-5 per hpf (0-3) H 01/07/19 11:03 50-100 per hpf (0-3) H 01/07/19 11:03 Ur Squamous Epith Cells Many per lpf (None-Few) H 01/07/19 11:03 Many per hpf (None-Few) H 01/07/19 11:03 Ur Culture Indicated? YES (NO) A 01/07/19 11:03 - Microbiology Findings Microbiology Findings: Microbiology, Last 48 Hours 01/07/19 11:03 Urine Culture - Final Urine,Clean Catch No significant growth. 01/09/19 08:00 Blood Culture - Preliminary Peripheral Venipuncture Culture is incubating and being continuously monitored for growth. Final report to follow. 01/09/19 08:07 Blood Culture - Preliminary Peripheral Venipuncture Culture is incubating and being continuously monitored for growth. Final report to follow. - Clinical Findings Intake & Output: Intake & Output 01/08/19 01/09/19 01/09/19 23:59 07:59 15:59 Intake Total 2019 / 4640 2620 / 4640 Output Total 450 / 450 0 / 50 50 / 50 Balance -450 / -440 2019 / 4590 2570 / 4590 Consult Discharge Plan - Plan Referrals: Ranjit Rodriguez MD [Primary Care Provider] - - Attending Attestation I examined this patient and my medical decision-making was reviewed with the Resident Physician. I agree with the documented findings, disposition and t reatment plan as described except to the extent set forth below. We independently had [id number] contact with the patient Patient seen and examined at bedside Labs, radiology, chart personally reviewed. Management was reviewed during multidisciplinary critical care rounds. RIGHT OF WAY AGENT: Awake and alert no focal deficit Pulm: Supple oxygenation on nasal cannula high risk for development of hydrostatic pulmonary edema Cards: Hypotension secondary to intravascular volume depletion and sepsis undergoing fluid resuscitation for lactic acidosis may need vasopressors based u romeo clinical course currently map has been greater than 65 however. History of proximal atrial fibrillation conic tropic insufficiency status post dual-chamber pacemaker mild coronary artery disease GI: Status post bowel resection GEN surgery managing postoperative care Nutrition: TPN per dietary recommendations plan for PICC line Renal: Acute kidney injury likely secondary to prerenal azotemia and hypotension. UOP Monitored, Cont to Trend sCr and monitor Electrolytes. ID:continue antibiotics for severe sepsis Heme/Onc: DVT prophylaxis given Endo: Glucose Monitored Integ/MSK: Skin Care per routine ICU Nursing Protocol to prevent ulcers. Lines: All lines examined without evidence of infection : Dispo: Monitor in ICU as high risk of further decompensation requiring vasopressors CODE: Full <Fabio Domingo - Last Filed: 01/09/19 19:11> Date of Encounter: 01/09/19 Time of Encounter: 10:41 Assessment and Plan (1) Sepsis Current Visit: Yes Status: Acute Patient was admitted with pain as ostomy site, likely secondary to ischemia from stricture He was taken for massive intra-abdominal surgery consisting of lysis adhesions/cholectomy/small bowel resection He was transferred to the ICU due to anticipation of infection and sepsis secondary to unavoidable surgical contamination He is currently requiring pressor support but is otherwise hemodynamically stable Continue cefepime and Flagyl for intestinal haroon coverage Continue norepinephrine for pressure support Continue fluids and other supportive care Qualifiers: Sepsis type: sepsis due to unspecified organism Qualified Code(s): A41.9 - Sepsis, unspecified organism (2) Status post colon resection Current Visit: Yes Status: Acute (3) Diabetes Current Visit: Yes Status: Acute Patient is chronic diabetic Monitoring glucose We will initiate insulin therapy once patient is receiving nutrition Qualifiers: Diabetes mellitus type: type 2 Diabetes mellitus manager intermediate insulin use: without fci use Diabetes mellitus complication status: without complication Qualified Code(s): E11.9 - Type 2 diabetes mellitus without complications (4) Atrial fibrillation Current Visit: No Status: Chronic History of atrial fibrillation, rate currently controlled, we will continue to monitor Qualifiers: Atrial fibrillation type: paroxysmal Qualified Code(s): I48.0 - Paroxysmal atrial fibrillation (5) Glaucoma Current Visit: No Status: Chronic History of glaucoma, continuing home eyedrop medications Qualifiers: Glaucoma type: unspecified Laterality: bilateral Qualified Code(s): H40.9 - Unspecified glaucoma (6) TONO (acute kidney injury) Current Visit: Yes Status: Acute Acute kidney injury likely secondary to prerenal from sepsis and hypotension We will continue to monitor urine output and creatinine and electrolytes and provide intravenous fluids History of Present Illness Consult date: 01/09/19 Requesting physician: Ranjit Zhong Reason for consult: other (Sepsis) Chief complaint: Status post colectomy and colostomy History of present illness: 73-year-old male with a past medical history of coronary artery disease, atrial fibrillation, pacemaker, rectal cancer requiring colectomy and colostomy. He presented with pain in his ostomy site. General surgery evaluated the patient and took him to surgery yesterday due to suspected stricture and ischemia at the level of the colon. Surgery consisted of lysis of adhesions, enterotomy, left colon resection and colostomy, transverse colostomy, small bowel resection with primary anastomosis and gastrostomy tube. General surgery requested transfer to ICU for close observation due to the fact that surgery was unavoidably contaminated with stool and there was high concern for eventual sepsis and shock due to intra-abdominal contamination and infection. The patient was transferred to the ICU awake and alert in hemodynamically stable condition on room air. Past Med Surg Social Fam HX - Past Medical History Medical history: atrial fibrillation, cancer, coronary artery disease, diabetes, glaucoma, kidney stones, renal disease Additional medical history: rectal cancer, GI bleed r/t Xarelto. Psychiatric history: anxiety, depression - Past Surgical History Surgical History: pacemaker/AICD, other Additional surgical history: colon resection, hernia repair - 11/02/2017; eye sx., Pacer. - Social History Smoking Status: Never smoker Smokeless Tobacco Status: No Alcohol use: none Drug use: none - Family History Father Living Status: Hx Family Cardiac Disorders: Yes Mother Living Status: All Systems: The remainder of the systems were reviewed and are negative - Constitutional Constitutional: no chills, no fever(s) - EENT Eyes: other (I pain secondary to and consistent with glaucoma) - Cardiovascular Cardiovascular: no chest pain, no dyspnea - Respiratory Respiratory: no cough - Gastrointestinal Gastrointestinal: abdominal pain, nausea - Neurological Neurological: no confusion Physical Examination Vital Signs: Vital Signs, Last 4 Hours Temp Pulse Resp BP Pulse Ox 01/09/19 06:43 97.9 F 74 15 88/59 97 General appearance: no acute distress, alert, appears uncomfortable Eyes: nonicteric, injected ENT: oropharynx dry Neck: supple Effort: normal Inspection: normal Auscultation: bilateral: clear Cardiovascular: regular rate and rhythm Gastrointestinal: absent bowel sounds, soft, tender, other (Tense and distended, there is a large area of dressing present over the abdomen that is clean and dry and intact. There is an ostomy site present on the right abdomen that is pink and warm with stool present within the ostomy bag.) Integumentary: normal Extremities: no cyanosis, no edema, pink and warm, pulses normal Musculoskeletal: no deformities normal mental status, non-focal exam Results - Laboratory Findings CBC and BMP: 01/09/19 03:58 01/09/19 03:58 PT/INR, D-dimer PT 12.7 Seconds (9.4-12.1) H 01/08/19 06:27 Abnormal lab findings: Abnormal lab results WBC 11.3 K/mcL (4.3-11.1) H 01/08/19 06:27 MCH 27.8 pg (28.0-33.3) L 01/09/19 03:58 MCHC 30.7 g/dL (31.6-35.5) L 01/09/19 03:58 RDW 15.6 % (11.5-14.5) H 01/09/19 03:58 12.0 % (0-4) H 01/09/19 03:58 2.0 % (0) H 01/09/19 03:58 Present (Not Present) A 01/09/19 03:58 PT 12.7 Seconds (9.4-12.1) H 01/08/19 06:27 APTT 46.9 Seconds (26.0-36.0) H 01/08/19 06:27 Chloride 109 mEq/L (98-107) H 01/07/19 08:46 Carbon Dioxide 16 mEq/L (23-29) L 01/09/19 03:58 2.06 mg/dL (0.70-1.30) H 01/09/19 03:58 Est GFR ( Amer) 38 (> 60) L 01/09/19 03:58 Est GFR (Non-Af Amer) 32 (> 60) L 01/09/19 03:58 Glucose 182 mg/dL (70-105) H 01/09/19 03:58 POC Glucose 163 mg/dL (70-99) H 01/09/19 10:29 6.2 % (-5.6) H 01/07/19 08:46 Lactic Acid 5.5 mmol/L (0.5-2.2) H* 01/09/19 08:07 AST 12 Units/L (13-39) L 01/08/19 06:27 6 Units/L (11-82) L 01/07/19 08:46 Cloudy (Clear) A 01/07/19 11:03 Ur Leukocyte Esterase Moderate (Negative) H 01/07/19 11:03 3-5 per hpf (0-3) H 01/07/19 11:03 50-100 per hpf (0-3) H 01/07/19 11:03 Ur Squamous Epith Cells Many per lpf (None-Few) H 01/07/19 11:03 Many per hpf (None-Few) H 01/07/19 11:03 Ur Culture Indicated? YES (NO) A 01/07/19 11:03 - Microbiology Findings Microbiology Findings: Microbiology, Last 48 Hours 01/09/19 08:00 Blood Culture - Preliminary Peripheral Venipuncture Culture is incubating and being continuously monitored for growth. Final report to follow. 01/09/19 08:07 Blood Culture - Preliminary Peripheral Venipuncture Culture is incubating and being continuously monitored for growth. Final report to follow. 01/07/19 11:03 Urine Culture - Preliminary Urine,Clean Catch Culture is incubating. - Clinical Findings Intake & Output: Intake & Output 01/08/19 01/09/19 01/09/19 23:59 07:59 15:59 Intake Total 20 / 520 500 / 520 Output Total 450 / 450 0 / 0 Balance -450 / -440 20 / 520 500 / 520
--- NOTE | 2019-01-09 11:20 | AcuteCareSurgery Progress Note ---
<Lu Calix - Last Filed: 01/09/19 12:51> Date of Encounter: 01/09/19 Time of Encounter: 11:20 - Assessment and Plan (1) Colon obstruction Current Visit: Yes Status: Acute Presents with stenosis of the orifice of his colostomy. Has been dilated twice in the past month, currently unable to fit tip of finger into ostomy. 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 Status post laparotomy with lysis of adhesions, unavoidable enterotomy, takedown colostomy, left colon resection, transverse colostomy, small bowel resection with primary anastomosis day 1 Patient hypotensive overnight requiring fluid resuscitation Antibiotic coverage day 2- cefepime Bowel regimen-Colace DVT prophylaxis- subcutaneous heparin Continue to monitor stool and urine output Consult to nutrition for TPN Patient transferred to ICU secondary to hypotension, lactic acidosis (2) Lactic acidosis Current Visit: Yes Status: Acute Lactate acid elevated to 5.5 Secondary to ischemic bowel, hypotension Continue fluid resuscitation Management per primary (3) TONO (acute kidney injury) Current Visit: Yes Status: Acute Patient sustained AK I Creatinine elevated at 2.06 Secondary to hypotension Continue fluid resuscitation Management per primary (4) Hypotension Current Visit: Yes Status: Acute Patient hypotensive overnight, to 75/51 Continue fluid resuscitation Patient transferred to ICU in case of need for vasopressors Qualifiers: Hypotension type: unspecified hypotension type Qualified Code(s): I95.9 - Hypotension, unspecified (5) T2DM (type 2 diabetes mellitus) Current Visit: Yes Status: Chronic Patient to start TPN Medium dose sliding scale Qualifiers: 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 Over night the patient experienced episodes of hypotension, blood pressure down to 75/51 requiring fluid resuscitation. Is also found to have lactic acidosis at 5.5 and AK I with creatinine increasing to 2.06. Patient underwent ostomy revision yesterday, which was converted to laparotomy secondary to dense scar tissue, adhesions secondary to radiation from his prior cancer treatment. The colon was ischemic. The adhesions were lysed, there were unavoidable enterotomies, colostomy was taken down, left colon resection, transverse colostomy, small bowel resection with primary anastomosis was performed. The patient admits to 10 out of 10 abdominal pain, feels feverish and weak and has abdominal pain with deep breathing. He denies chills, nausea, vomiting, chest pain, cough, dysuria, calf pain. Due to lactic acidosis, hypotension the patient was transferred to the ICU and pulmonology team was consulted. Objective Vital Signs - Last 8 Hours Temp Pulse Resp BP Pulse Ox 01/09/19 11:00 74 30 97/64 95 01/09/19 10:42 97.5 F L 73 30 111/57 95 01/09/19 06:43 97.9 F 74 15 88/59 97 01/09/19 06:38 75 90/58 01/09/19 04:48 98.0 F 76 18 75/51 93 Intake and Output 01/08/19 01/09/19 01/09/19 23:59 07:59 15:59 Intake Total 2019 / 4640 2620 / 4640 Output Total 450 / 450 0 / 0 Balance -450 / -440 2019 / 4640 2620 / 4640 Intake: IV Fluids 2019 262 / 4640 Lactated Ringers 1,000 ML @ 0 500 / 500 mls/hr .ROUTE .STK-MED ONE Rx#: [id number] 0.9 % Sodium Chloride 1,000 ML 2000 / 4000 2000 / 4000 @ 999 mls/hr IVC .Q1H1M DANK Rx# :[id number] Maxipime 2,000 MG In Water for 20 / 20 inj. (sterile) 20 ML @ 300 mls/ hr IVP Q12HR DANK Rx#:[id number] Mefoxin 2,000 MG In Water for 20 / 20 inj. (sterile) 20 ML @ 300 mls/ hr IVP Q8HR DANK Rx#:[id number] Flagyl Premix 500 MG/100 ML 500 100 / 100 mg In 100 ml @ 100 mls/hr IVPB Q8HR DANK Rx#:[id number] Oral 0 / 0 Output: Stool 0 / 0 Estimated Blood Loss 150 / 150 Urine Amount (Catheter) 300 / 300 Catheter 0 / 0 Other: Meal npo Blood Glucose* 168 184 163 - General physical appearance well developed (Pallor), well nourished, moderate pain - Eyes PERRL, normal ocular movement - ENT normal pinna, normal nares, normal mucosa, no hearing loss, no congestion - Neck Neck exam: no masses, trachea midline, no lymphadectomy - Respiratory normal expansion, normal respiratory effort, clear to percussion, clear to auscultation - Cardiovascular Cardiovascular exam: Present: RRR. Absent: JVD, no murmurs/rubs/gallops - Abdomen Abdomen: Present: bowel sounds present (Hypoactive), soft, tender Abdominal Tenderness: diffusely Hernia: none - Incision Incision: Present: clean and dry, intact (Colostomy on right side of abdomen, red, small amount of output, appears well perfused) - Integumentary no rash - Neurologic CN 2-12 grossly intact, normal coordination, normal sensation - Musculoskeletal normal posture - Psychiatric oriented to time, oriented to person, oriented to place, speech is normal, memory intact - Labs 01/09/19 03:58 01/09/19 03:58 Diabetes panel 01/09/19 Range/Units 03:58 Sodium 138 (136-145) mEq/L Potassium 4.8 (3.5-5.1) mEq/L Chloride 106 (98-107) mEq/L Carbon Dioxide 16 L (23-29) mEq/L BUN 23 (8-23) mg/dL Creatinine 2.06 H (0.70-1.30) mg/dL Glucose 182 H (70-105) mg/dL Calcium 8.6 (8.6-10.3) mg/dL Calcium panel 01/09/19 Range/Units 03:58 Calcium 8.6 (8.6-10.3) mg/dL Pituitary panel 01/09/19 Range/Units 03:58 Sodium 138 (136-145) mEq/L Potassium 4.8 (3.5-5.1) mEq/L Chloride 106 (98-107) mEq/L Carbon Dioxide 16 L (23-29) mEq/L BUN 23 (8-23) mg/dL Creatinine 2.06 H (0.70-1.30) mg/dL Glucose 182 H (70-105) mg/dL Calcium 8.6 (8.6-10.3) mg/dL Adrenal panel 01/09/19 Range/Units 03:58 Sodium 138 (136-145) mEq/L Potassium 4.8 (3.5-5.1) mEq/L Chloride 106 (98-107) mEq/L Carbon Dioxide 16 L (23-29) mEq/L BUN 23 (8-23) mg/dL Creatinine 2.06 H (0.70-1.30) mg/dL Glucose 182 H (70-105) mg/dL Calcium 8.6 (8.6-10.3) mg/dL Consult Discharge Plan - Plan Referrals: Ranjit Rodriguez MD [Primary Care Provider] - <Ranjit Zhong - Last Filed: 01/09/19 13:46> Date of Encounter: 01/09/19 Objective Vital Signs - Last 8 Hours Temp Pulse Resp BP Pulse Ox 01/09/19 13:00 71 28 107/70 95 01/09/19 12:00 75 28 98/65 95 01/09/19 11:00 74 30 97/64 95 01/09/19 10:42 97.5 F L 73 30 111/57 95 01/09/19 06:43 97.9 F 74 15 88/59 97 01/09/19 06:38 75 90/58 Intake and Output 01/08/19 01/09/19 01/09/19 23:59 07:59 15:59 Intake Total 2019 262 / 4640 Output Total 450 / 450 0 / 50 50 / 50 Balance -450 / -440 2019 4590 Intake: IV Fluids 2019 4640 Lactated Ringers 1,000 ML @ 0 500 / 500 mls/hr .ROUTE .STK-MED ONE Rx#: [id number] 0.9 % Sodium Chloride 1,000 ML 2000 / 4000 2000 / 4000 @ 999 mls/hr IVC .Q1H1M DANK Rx# :[id number] Maxipime 2,000 MG In Water for 20 / 20 inj. (sterile) 20 ML @ 300 mls/ hr IVP Q12HR DANK Rx#:[id number] Mefoxin 2,000 MG In Water for 20 / 20 inj. (sterile) 20 ML @ 300 mls/ hr IVP Q8HR DANK Rx#:[id number] Flagyl Premix 500 MG/100 ML 500 100 / 100 mg In 100 ml @ 100 mls/hr IVPB Q8HR DANK Rx#:[id number] Oral 0 / 0 Output: Stool 0 / 0 Estimated Blood Loss 150 / 150 Urine Amount (Catheter) 300 / 300 Catheter 0 / 50 50 / 50 Other: Meal npo Blood Glucose* 168 184 163 - Labs 01/09/19 03:58 01/09/19 03:58 Diabetes panel 01/09/19 Range/Units 03:58 Sodium 138 (136-145) mEq/L Potassium 4.8 (3.5-5.1) mEq/L Chloride 106 (98-107) mEq/L Carbon Dioxide 16 L (23-29) mEq/L BUN 23 (8-23) mg/dL Creatinine 2.06 H (0.70-1.30) mg/dL Glucose 182 H (70-105) mg/dL Calcium 8.6 (8.6-10.3) mg/dL Calcium panel 01/09/19 Range/Units 03:58 Calcium 8.6 (8.6-10.3) mg/dL Pituitary panel 01/09/19 Range/Units 03:58 Sodium 138 (136-145) mEq/L Potassium 4.8 (3.5-5.1) mEq/L Chloride 106 (98-107) mEq/L Carbon Dioxide 16 L (23-29) mEq/L BUN 23 (8-23) mg/dL Creatinine 2.06 H (0.70-1.30) mg/dL Glucose 182 H (70-105) mg/dL Calcium 8.6 (8.6-10.3) mg/dL Adrenal panel 01/09/19 Range/Units 03:58 Sodium 138 (136-145) mEq/L Potassium 4.8 (3.5-5.1) mEq/L Chloride 106 (98-107) mEq/L Carbon Dioxide 16 L (23-29) mEq/L BUN 23 (8-23) mg/dL Creatinine 2.06 H (0.70-1.30) mg/dL Glucose 182 H (70-105) mg/dL Calcium 8.6 (8.6-10.3) mg/dL - Attending Attestation I examined this patient and my medical decision-making was reviewed with the Resident Physician. I agree with the documented findings, disposition and treatment plan as described except to the extent set forth below. The patient is seen and evaluated on morning rounds with the neurosurgery team and the resident. The patient meets sepsis criteria evaluation and will be transferred to intensive care unit for close clinical monitoring and initiation of sepsis protocols. He is receiving a second volume bolus at the time of evaluation. Ranjti Zhong MD FACS
[2019-01-09] MEDS ORDERED: Ondansetron ODT 4 MG TAB.RAPDIS SL PRN (11:40)
[2019-01-09] MEDS: Latanoprost 2.5 ML BOTTLE RIGHT EYE SCH ×2 (12:17→19:52)
[2019-01-09] MEDS: Insulin LISPRO 300 UNITS/3 ML VIAL SQ SCH ×3 (13:03→19:51)
[2019-01-09] MEDS ORDERED: D10% in Water 500 ML IVC PRN (13:07)
[2019-01-09] MEDS ORDERED: Albumin 25% 25gram/100mL 50 GM/200 ML IV.SOLN ONE (13:12)
[2019-01-09 13:58] LABS: Magnesium 1.8 mg/dL (1.6-2.6)
[2019-01-09] MEDS: *HR* HYDROmorphone 2 MG/ML SYRINGE IVP PRN (14:15)
[2019-01-09] MEDS: Dorzolamide/Timolol 1 DROP RIGHT EYE SCH ×2 (14:19→22:07)
[2019-01-09] MEDS ORDERED: Albumin 25% 25gram/100mL 25 GM/100 ML IV.SOLN IVPB ONE (14:22)
[2019-01-09 15:58] LABS: Creatine Kinase 204 Units/L (30-223)
[2019-01-09 15:59] LABS: Troponin I < 0.03 ng/mL (< 0.04)
[2019-01-09] MEDS: Norepinephrine 4 MG in D5% in Water 250 ML IVC SCH (16:19)
[2019-01-09] MEDS ORDERED: Clinimix E 5%-15% SOLUTION 2,000 ML with MVI, adult with vitamin K 10 ML IVC SCH (17:00)
[2019-01-10] MEDS: Insulin LISPRO 300 UNITS/3 ML VIAL SQ SCH ×7 (00:11→23:59)
[2019-01-10] MEDS: MetroNIDAZOLE 500 MG/100 ML 500 MG/100 ML BAG IVPB SCH ×4 (00:11→23:52)
[2019-01-10 04:34] LABS: Hematocrit 31.2 % (37.5-50.1); Mean Corpuscular HGB Conc 31.7 g/dL (31.6-35.5); Mean Corpuscular Hemoglobin 28.4 pg (28.0-33.3); Mean Corpuscular Volume 89.7 fL (83.0-100.0); Mean Platelet Volume 11.7 fL (9.4-12.4); Platelet Count 180 K/mcL (140-400); Red Blood Count 3.48 M/mcL (4.19-5.50); White Blood Count 7.9 K/mcL (4.3-11.1)
[2019-01-10 04:36] LABS: VBG Ionized Calcium 1.04 mmol/L (1.15-1.35)
[2019-01-10 04:47] LABS: Hemoglobin 9.9 g/dL (12.9-16.9)
[2019-01-10 04:53] LABS: Calcium 7.7 mg/dL (8.6-10.3); Magnesium 1.6 mg/dL (1.6-2.6); Potassium 4.3 mEq/L (3.5-5.1)
[2019-01-10 04:54] LABS: Phosphorous 3.2 mg/dL (2.7-4.5)
[2019-01-10 05:17] LABS: Lymphocytes # 1.3 K/mcL (0.6-4.6); Monocytes # 0.6 K/mcL (0.0-1.3); Neutrophils # 5.9 K/mcL (1.6-8.9)
[2019-01-10 05:18] LABS: Large Platelets Present (Not Present); Platelet Estimate Normal (Normal)
[2019-01-10] MEDS: *HR* Heparin 5,000 UNIT/ML VIAL SQ SCH (05:25)
[2019-01-10] MEDS: Cefepime HCl 2,000 MG in Water for inj. (sterile) 20 ML IVP SCH (05:27)
--- NOTE | 2019-01-10 07:10 | Pulmonology Progress Note ---
<Fabio Domingo - Last Filed: 01/10/19 14:43> Date of Encounter: 01/10/19 Time of Encounter: 07:10 Assessment and Plan (1) Sepsis Current Visit: Yes Status: Acute Patient was admitted with pain at ostomy site, likely secondary to ischemia from stricture He was taken for massive intra-abdominal surgery consisting of lysis adhesions/cholectomy/small bowel resection He was transferred to the ICU due to anticipation of infection and sepsis secondary to unavoidable surgical contamination He is currently requiring pressor support but is otherwise hemodynamically stable Continue cefepime and Flagyl for intestinal haroon coverage Continue norepinephrine for pressure support Other supportive care as necessary Qualifiers: Sepsis type: sepsis due to unspecified organism Qualified Code(s): A41.9 - Sepsis, unspecified organism (2) Status post colon resection Current Visit: Yes Status: Acute (3) Diabetes Current Visit: Yes Status: Acute Patient is chronic diabetic Monitoring glucose, minimally elevated Patient is receiving total parenteral nutrition Every 4 hours Accu-Cheks and medium dose sliding scale insulin protocol Qualifiers: Diabetes mellitus type: type 2 Diabetes mellitus care home insulin use: without care home use Diabetes mellitus complication status: without complication Qualified Code(s): E11.9 - Type 2 diabetes mellitus without complications (4) Atrial fibrillation Current Visit: No Status: Chronic History of atrial fibrillation, rate currently controlled, we will continue to monitor Qualifiers: Atrial fibrillation type: paroxysmal Qualified Code(s): I48.0 - Paroxysmal atrial fibrillation (5) Glaucoma Current Visit: No Status: Chronic History of glaucoma, continuing home eyedrop medications Qualifiers: Glaucoma type: unspecified Laterality: bilateral Qualified Code(s): H40.9 - Unspecified glaucoma (6) TONO (acute kidney injury) Current Visit: Yes Status: Acute Acute kidney injury likely secondary to prerenal from sepsis and hypotension We will continue to monitor urine output and creatinine and electrolytes Subjective Principal diagnosis: Postop colectomy and colostomy Interval history: No acute events reported overnight however the patient's hemoglobin did drop. Patient is alert and oriented and comfortable this morning. Objective PUL Vital signs: Last Vital Signs Temp 97.5 F L 01/10/19 06:57 Pulse 77 01/10/19 06:00 Resp 26 01/10/19 06:00 BP 102/48 01/10/19 06:00 Pulse Ox 94 01/10/19 06:00 General appearance: no acute distress, alert Eyes: nonicteric ENT: oropharynx dry Neck: supple Effort: normal Auscultation: bilateral: clear Cardiovascular: regular rate and rhythm Gastrointestinal: absent bowel sounds, soft, tender, non-distended Extremities: no cyanosis, no edema, pink and warm, pulses normal Musculoskeletal: no deformities normal mental status, non-focal exam mood appropriate Results - Laboratory Findings CBC and BMP: 01/10/19 10:30 01/10/19 04:15 PT/INR, D-dimer PT 12.7 Seconds (9.4-12.1) H 01/08/19 06:27 Abnormal lab findings: Abnormal lab results WBC 11.3 K/mcL (4.3-11.1) H 01/08/19 06:27 RBC 3.48 M/mcL (4.19-5.50) L 01/10/19 04:15 Hgb 9.9 g/dL (12.9-16.9) L D 01/10/19 04:15 Hct 31.2 % (37.5-50.1) L 01/10/19 04:15 MCH 27.8 pg (28.0-33.3) L 01/09/19 03:58 MCHC 30.7 g/dL (31.6-35.5) L 01/09/19 03:58 RDW 16.0 % (11.5-14.5) H 01/10/19 04:15 34.0 % (0-4) H 01/10/19 04:15 2.0 % (0) H 01/10/19 04:15 Present (Not Present) A 01/10/19 04:15 PT 12.7 Seconds (9.4-12.1) H 01/08/19 06:27 APTT 46.9 Seconds (26.0-36.0) H 01/08/19 06:27 Sodium 135 mEq/L (136-145) L 01/10/19 04:15 Chloride 108 mEq/L (98-107) H 01/10/19 04:15 Carbon Dioxide 19 mEq/L (23-29) L 01/10/19 04:15 BUN 37 mg/dL (8-23) H 01/10/19 04:15 2.32 mg/dL (0.70-1.30) H 01/10/19 04:15 Est GFR ( Amer) 33 (> 60) L 01/10/19 04:15 Est GFR (Non-Af Amer) 28 (> 60) L 01/10/19 04:15 Glucose 232 mg/dL (70-105) H 01/10/19 04:15 POC Glucose 198 mg/dL (70-99) H 01/10/19 07:01 6.2 % (-5.6) H 01/07/19 08:46 Lactic Acid 2.4 mmol/L (0.5-2.2) H 01/10/19 00:14 Calcium 7.7 mg/dL (8.6-10.3) L 01/10/19 04:15 Venous Ioniz Calcium 1.04 mmol/L (1.15-1.35) L 01/10/19 04:32 Phosphorus 5.0 mg/dL (2.7-4.5) H 01/09/19 03:58 AST 12 Units/L (13-39) L 01/08/19 06:27 B-Natriuretic Peptide 300 pg/mL (Less than 100) H 01/09/19 15:18 8.4 mg/dL (17.0-34.0) L 01/10/19 04:15 Triglycerides 179 mg/dL (< 150) H 01/10/19 04:15 6 Units/L (11-82) L 01/07/19 08:46 Cloudy (Clear) A 01/07/19 11:03 Ur Leukocyte Esterase Moderate (Negative) H 01/07/19 11:03 3-5 per hpf (0-3) H 01/07/19 11:03 50-100 per hpf (0-3) H 01/07/19 11:03 Ur Squamous Epith Cells Many per lpf (None-Few) H 01/07/19 11:03 Many per hpf (None-Few) H 01/07/19 11:03 Ur Culture Indicated? YES (NO) A 01/07/19 11:03 - Microbiology Findings Microbiology Findings: Microbiology, Last 48 Hours 01/07/19 11:03 Urine Culture - Final Urine,Clean Catch No significant growth. 01/09/19 08:00 Blood Culture - Preliminary Peripheral Venipuncture Culture is incubating and being continuously monitored for growth. Final report to follow. 01/09/19 08:07 Blood Culture - Preliminary Peripheral Venipuncture Culture is incubating and being continuously monitored for growth. Final report to follow. - Clinical Findings Intake & Output: Intake & Output 01/09/19 01/09/19 01/10/19 15:59 23:59 07:59 Intake Total 2820 / 5091.8 251.8 / 5091.8 440.2 / 440.2 Output Total 140 / 390 250 / 390 637 / 637 Balance 2680 / 4701.8 1.8 / 4701.8 -196.8 / -196.8 Weight 84 kg Consult Discharge Plan - Plan Referrals: Ranjit Rodriguez MD [Primary Care Provider] - <Avi Steele - Last Filed: 01/10/19 16:43> Date of Encounter: 01/10/19 Assessment and Plan (1) Postoperative hypovolemic shock Current Visit: Yes Status: Acute Qualifiers: Encounter type: sequela Qualified Code(s): T81.19XS - Other postprocedural shock, sequela (2) Acute diastolic heart failure with preserved ejection fraction Current Visit: Yes Status: Acute Objective PUL Vital signs: Last Vital Signs Temp 97.7 F 01/10/19 12:05 Pulse 79 01/10/19 11:30 Resp 23 01/10/19 11:30 BP 88/47 01/10/19 11:30 Pulse Ox 95 01/10/19 11:30 Results - Laboratory Findings CBC and BMP: 01/10/19 10:30 01/10/19 04:15 PT/INR, D-dimer PT 12.7 Seconds (9.4-12.1) H 01/08/19 06:27 Abnormal lab findings: Abnormal lab results WBC 11.3 K/mcL (4.3-11.1) H 01/08/19 06:27 RBC 3.48 M/mcL (4.19-5.50) L 01/10/19 04:15 Hgb 9.7 g/dL (12.9-16.9) L 01/10/19 10:30 Hct 30.4 % (37.5-50.1) L 01/10/19 10:30 MCH 27.8 pg (28.0-33.3) L 01/09/19 03:58 MCHC 30.7 g/dL (31.6-35.5) L 01/09/19 03:58 RDW 16.0 % (11.5-14.5) H 01/10/19 04:15 34.0 % (0-4) H 01/10/19 04:15 2.0 % (0) H 01/10/19 04:15 Present (Not Present) A 01/10/19 04:15 PT 12.7 Seconds (9.4-12.1) H 01/08/19 06:27 APTT 46.9 Seconds (26.0-36.0) H 01/08/19 06:27 Sodium 135 mEq/L (136-145) L 01/10/19 04:15 Chloride 108 mEq/L (98-107) H 01/10/19 04:15 Carbon Dioxide 19 mEq/L (23-29) L 01/10/19 04:15 BUN 37 mg/dL (8-23) H 01/10/19 04:15 2.32 mg/dL (0.70-1.30) H 01/10/19 04:15 Est GFR ( Amer) 33 (> 60) L 01/10/19 04:15 Est GFR (Non-Af Amer) 28 (> 60) L 01/10/19 04:15 Glucose 232 mg/dL (70-105) H 01/10/19 04:15 POC Glucose 186 mg/dL (70-99) H 01/10/19 11:23 6.2 % (-5.6) H 01/07/19 08:46 Lactic Acid 2.4 mmol/L (0.5-2.2) H 01/10/19 00:14 Calcium 7.7 mg/dL (8.6-10.3) L 01/10/19 04:15 Venous Ioniz Calcium 1.04 mmol/L (1.15-1.35) L 01/10/19 04:32 Phosphorus 5.0 mg/dL (2.7-4.5) H 01/09/19 03:58 AST 12 Units/L (13-39) L 01/08/19 06:27 B-Natriuretic Peptide 300 pg/mL (Less than 100) H 01/09/19 15:18 8.4 mg/dL (17.0-34.0) L 01/10/19 04:15 Triglycerides 179 mg/dL (< 150) H 01/10/19 04:15 6 Units/L (11-82) L 01/07/19 08:46 Cloudy (Clear) A 01/07/19 11:03 Ur Leukocyte Esterase Moderate (Negative) H 01/07/19 11:03 3-5 per hpf (0-3) H 01/07/19 11:03 50-100 per hpf (0-3) H 01/07/19 11:03 Ur Squamous Epith Cells Many per lpf (None-Few) H 01/07/19 11:03 Many per hpf (None-Few) H 01/07/19 11:03 Ur Culture Indicated? YES (NO) A 01/07/19 11:03 - Microbiology Findings Microbiology Findings: Microbiology, Last 48 Hours 01/07/19 11:03 Urine Culture - Final Urine,Clean Catch No significant growth. 01/09/19 08:00 Blood Culture - Preliminary Peripheral Venipuncture Culture is incubating and being continuously monitored for growth. Final report to follow. 01/09/19 08:07 Blood Culture - Preliminary Peripheral Venipuncture Culture is incubating and being continuously monitored for growth. Final report to follow. - Clinical Findings Intake & Output: Intake & Output 01/09/19 01/10/19 01/10/19 23:59 07:59 15:59 Intake Total 251.8 / 5091.8 440.2 / 440.2 0 / 440.2 Output Total 250 / 390 637 / 687 50 / 687 Balance 1.8 / 4701.8 -196.8 / -246.8 -50 / -246.8 Weight 84 kg - Attending Attestation I examined this patient and my medical decision-making was reviewed with the Resident Physician. I agree with the documented findings, disposition and treatment plan as described except to the extent set forth below. We independently had [id number] contact with the patient I spent 32min of Critical Care time with this patient. It involved decision making of high complexity to assess, manipulate, and support vital organ system failure and/or to prevent further life threatening deterioration of the patient's condition. The time involved in the performance of separately reporta ble procedures was not counted toward critical care time. Patient seen and examined at bedside Labs, radiology, chart personally reviewed. Management was reviewed during multidisciplinary critical care rounds. 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 Heart failure with preserved ejection fraction and he is at risk of worsening hydrostatic pulmonary edema continue to closely monitor fluid status may need positive pressure support GI: He is status post colectomy with ostomy redo general surgery is following Nutrition: Total parenteral nutrition per dietary recommendations Renal: Acute kidney injury urine output appears to be improving however he is at risk for further decline given underlying cardiovascular status UOP Monitored, Cont to Trend sCr and monitor Electrolytes. ID: He has had an odd spectrum antibiotics for intra-abdominal infections as well as potentially pneumonia Heme/Onc: Acute blood loss anemia with a precipitous drop in hemoglobin from 14 down to 9 suspected intra-abdominal source of bleeding although there is also a dilutional effect as well as acute kidney injury playing a role will likely need to CT scan for further evaluation of this I discussed the case with general surgery and they are following closely repeat hemoglobin at 4 hour intervals transfusion goal greater than 7 Endo: Glucose Monitored Integ/MSK: Skin Care per routine ICU Nursing Protocol to prevent ulcers. Lines: All lines examined without evidence of infection : Dispo: Monitor in ICU for critical illness CODE: Full code
[2019-01-10] MEDS ORDERED: Lidocaine -MPF 1% 5 ML AMPUL INFILT ONE (07:43)
[2019-01-10] MEDS: *HR* HYDROmorphone 2 MG/ML SYRINGE IVP PRN (08:42)
--- NOTE | 2019-01-10 08:50 | AcuteCareSurgery Progress Note ---
<Lu Calix - Last Filed: 01/10/19 11:47> Date of Encounter: 01/10/19 Time of Encounter: 08:50 - Assessment and Plan (1) Colon obstruction Current Visit: Yes Status: Acute Presents with stenosis of the orifice of his colostomy. Has been dilated twice in the past month, currently unable to fit tip of finger into ostomy. 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 Status post laparotomy with lysis of adhesions, unavoidable enterotomy, takedown colostomy, left colon resection, transverse colostomy, small bowel resection with primary anastomosis day 2 Patient hypotensive overnight requiring fluid resuscitation and levophed Drop in hemoglobin overnight, suspect this is secondary to hemodilution as opposed to acute bleed however continue to monitor hematocrit, hemoglobin every 6 hours and transfuse if hemoglobin less than 8 Antibiotic coverage day 3- cefepime, metronidazole Bowel regimen-Colace DVT prophylaxis- subcutaneous heparin Continue to monitor stool and urine output Continue TPN for nutrition Continue management in ICU (2) Sepsis Current Visit: Yes Status: Acute Secondary to ischemic bowel Patient was hypotensive requiring pressors Continue fluids, antibiotic coverage See above for further management Qualifiers: Sepsis type: sepsis due to unspecified organism Qualified Code(s): A41.9 - Sepsis, unspecified organism (3) Hypotension Current Visit: Yes Status: Acute Improved Secondary to sepsis due to ischemic bowel Patient was hypotensive, status post fluid resuscitation, levophed Qualifiers: Hypotension type: unspecified hypotension type Qualified Code(s): I95.9 - Hypotension, unspecified (4) Anemia Current Visit: Yes Status: Acute Patient had drop in hemoglobin from 14.1-9.9 Suspect this is secondary to hemodilution patient required fluid resuscitation for hypotension as opposed to acute bleed We will continue to monitor hemoglobin, hematocrit Transfuse if hgb less than 8 Qualifiers: Anemia type: unspecified type Qualified Code(s): D64.9 - Anemia, unspecified (5) TONO (acute kidney injury) Current Visit: Yes Status: Acute Patient sustained TONO, secondary to hypotension, sepsis Creatinine continues to elevate, currently at 2.32 Renally dose medications and try to avoid nephrotoxic agents (6) T2DM (type 2 diabetes mellitus) Current Visit: Yes Status: Chronic Patient to start TPN Medium dose sliding scale Qualifiers: Diabetes mellitus [facility] 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 The patient required pressors overnight. He was found to have a drop in hemoglobin to 9.4 today. Suspect this is secondary to hemodilution as opposed to acute bleeding. He continues to have abdominal pain and has a small amount of output in colostomy bag. His gastrectomy to has some output as well. He denies nausea vomiting fever, chills, chest pain, shortness of breath, dysuria, calf pain. Objective Vital Signs - Last 8 Hours Temp Pulse Resp BP Pulse Ox 01/10/19 06:57 97.5 F L 01/10/19 06:00 77 26 102/48 94 01/10/19 05:14 98.3 F 01/10/19 05:00 78 29 111/50 95 01/10/19 04:10 75 01/10/19 04:00 75 26 109/52 95 01/10/19 03:00 73 25 101/51 95 01/10/19 02:00 72 24 101/52 94 01/10/19 01:00 73 22 98/51 94 Intake and Output 01/09/19 01/10/19 01/10/19 23:59 07:59 15:59 Intake Total 251.8 / 5091.8 440.2 / 440.2 Output Total 250 / 390 637 / 637 Balance 1.8 / 4701.8 -196.8 / -196.8 Intake: IV Fluids 251.8 / 5091.8 440.2 / 440.2 Levophed 4 MG In Dextrose 5% 131.8 / 131.8 70.2 / 70.2 250 ML @ 8 MCG/MIN 30.48 mls/hr IVC CONT DANK Rx#:[id number] Maxipime 2,000 MG In Water for inj. (sterile) 20 ML @ 300 mls/ hr IVP Q12HR DANK Rx#:[id number] Intralipid 20% 250 ML @ 21 mls/ 250 / 250 hr IVPB DAILY@1700 [facility] Rx#: [id number] Flagyl Premix 500 MG/100 ML 500 100 / 200 100 / 100 mg In 100 ml @ 100 mls/hr IVPB Q8HR DANK Rx#:[id number] Output: Stool 0 / 0 Catheter 250 / 380 630 / 630 Gastric Drainage Other: Weight 84 kg Blood Glucose* 224 198 Patient Weight 01/10/19 23:59 Weight 84 kg - General physical appearance moderate distress (Pallor is improving) - Eyes PERRL, normal ocular movement - ENT no hearing loss, no congestion, dry mucosa - Neck Neck exam: no masses, trachea midline - Respiratory normal expansion, normal respiratory effort, clear to percussion, clear to aus cultation - Cardiovascular Cardiovascular exam: Present: RRR, no murmurs/rubs/gallops. Absent: JVD - Abdomen Abdomen: Present: bowel sounds present (Hypoactive, small amount of output in colostomy. Stoma, colon appears pink, well-perfused. Gastrectomy tube in place, continues to have drainage.), soft, tender Abdominal Tenderness: RLQ - Incision Incision: Present: clean and dry - Integumentary no rash, no growths, no abnormal pigmentation - Neurologic normal coordination, normal sensation - Musculoskeletal normal posture - Psychiatric oriented to time, oriented to person, oriented to place, speech is normal, memory intact - Labs 01/10/19 10:30 01/10/19 04:15 Diabetes panel 01/09/19 01/10/19 01/10/19 Range/Units 03:58 04:15 04:15 Sodium 138 135 L (136-145) mEq/L Potassium 4.8 4.3 (3.5-5.1) mEq/L Chloride 106 108 H (98-107) mEq/L Carbon Dioxide 16 L 19 L (23-29) mEq/L BUN 23 37 H (8-23) mg/dL Creatinine 2.06 H 2.32 H (0.70-1.30) mg/dL Glucose 182 H 232 H (70-105) mg/dL Calcium 8.6 7.7 L (8.6-10.3) mg/dL Triglycerides 179 H (< 150) mg/dL Calcium panel 01/09/19 01/10/19 01/10/19 Range/Units 03:58 04:15 04:15 Calcium 8.6 7.7 L (8.6-10.3) mg/dL Phosphorus 5.0 H 3.2 (2.7-4.5) mg/dL Pituitary panel 01/09/19 01/10/19 Range/Units 03:58 04:15 Sodium 138 135 L (136-145) mEq/L Potassium 4.8 4.3 (3.5-5.1) mEq/L Chloride 106 108 H (98-107) mEq/L Carbon Dioxide 16 L 19 L (23-29) mEq/L BUN 23 37 H (8-23) mg/dL Creatinine 2.06 H 2.32 H (0.70-1.30) mg/dL Glucose 182 H 232 H (70-105) mg/dL Calcium 8.6 7.7 L (8.6-10.3) mg/dL Adrenal panel 01/09/19 01/10/19 Range/Units 03:58 04:15 Sodium 138 135 L (136-145) mEq/L Potassium 4.8 4.3 (3.5-5.1) mEq/L Chloride 106 108 H (98-107) mEq/L Carbon Dioxide 16 L 19 L (23-29) mEq/L BUN 23 37 H (8-23) mg/dL Creatinine 2.06 H 2.32 H (0.70-1.30) mg/dL Glucose 182 H 232 H (70-105) mg/dL Calcium 8.6 7.7 L (8.6-10.3) mg/dL Consult Discharge Plan - Plan Referrals: Ranjit Rodriguez MD [Primary Care Provider] - <Jose Martinez - Last Filed: 01/10/19 23:16> Date of Encounter: 01/10/19 - Assessment and Plan (1) Colon obstruction Current Visit: Yes Status: Acute Objective Vital Signs - Last 8 Hours Temp Pulse Resp BP Pulse Ox 01/10/19 22:00 91 25 109/49 93 01/10/19 21:00 97.7 F 90 24 113/45 93 01/10/19 20:00 90 24 130/53 93 01/10/19 19:00 92 24 113/50 95 01/10/19 18:30 23 118/48 95 01/10/19 17:30 84 23 116/50 94 01/10/19 16:30 85 23 120/54 93 01/10/19 16:00 89 01/10/19 15:30 86 26 127/51 94 01/10/19 15:19 97.6 F Intake and Output 01/10/19 01/10/19 01/10/19 07:59 15:59 23:59 Intake Total 440.2 / 640.2 100 / 640.2 100 / 640.2 Output Total 637 / 887 135 / 887 115 / 887 Balance -196.8 / -246.8 -35 / -246.8 -15 / -246.8 Intake: IV Fluids 440.2 / 640.2 100 / 640.2 100 / 640.2 Levophed 4 MG In Dextrose 5% 70.2 / 70.2 0 / 70.2 250 ML @ 8 MCG/MIN 30.48 mls/hr IVC CONT DANK Rx#:[id number] Maxipime 2,000 MG In Water for inj. (sterile) 20 ML @ 300 mls/ hr IVP Q12HR [facility] Rx#:[id number] Intralipid 20% 250 ML @ 21 mls/ 250 / 250 hr IVPB DAILY@1700 [facility] Rx#: [id number] Flagyl Premix 500 MG/100 ML 500 100 / 300 100 / 300 100 / 300 mg In 100 ml @ 100 mls/hr IVPB Q8HR [facility] Rx#:[id number] Output: Stool 0 / 0 0 / 0 Catheter 630 / 850 120 / 850 100 / 850 Gastric Drainage 15 15 Other: Weight 84 kg Blood Glucose* 198 178 220 Patient Weight 01/10/19 23:59 Weight 84 kg - Labs 01/10/19 18:20 01/10/19 04:15 Diabetes panel 01/10/19 01/10/19 Range/Units 04:15 04:15 Sodium 135 L (136-145) mEq/L Potassium 4.3 (3.5-5.1) mEq/L Chloride 108 H (98-107) mEq/L Carbon Dioxide 19 L (23-29) mEq/L BUN 37 H (8-23) mg/dL Creatinine 2.32 H (0.70-1.30) mg/dL Glucose 232 H (70-105) mg/dL Calcium 7.7 L (8.6-10.3) mg/dL Triglycerides 179 H (< 150) mg/dL Calcium panel 01/10/19 01/10/19 Range/Units 04:15 04:15 Calcium 7.7 L (8.6-10.3) mg/dL Phosphorus 3.2 (2.7-4.5) mg/dL Pituitary panel 01/10/19 Range/Units 04:15 Sodium 135 L (136-145) mEq/L Potassium 4.3 (3.5-5.1) mEq/L Chloride 108 H (98-107) mEq/L Carbon Dioxide 19 L (23-29) mEq/L BUN 37 H (8-23) mg/dL Creatinine 2.32 H (0.70-1.30) mg/dL Glucose 232 H (70-105) mg/dL Calcium 7.7 L (8.6-10.3) mg/dL Adrenal panel 01/10/19 Range/Units 04:15 Sodium 135 L (136-145) mEq/L Potassium 4.3 (3.5-5.1) mEq/L Chloride 108 H (98-107) mEq/L Carbon Dioxide 19 L (23-29) mEq/L BUN 37 H (8-23) mg/dL Creatinine 2.32 H (0.70-1.30) mg/dL Glucose 232 H (70-105) mg/dL Calcium 7.7 L (8.6-10.3) mg/dL - Attending Attestation patient seen and examined. i have reviewed all labs, imaging, and notes. i have discussed the case in detail with the resident. I agree with the above assessment and plan and wish to add the following... POD #2, AF; VSS, but currently on small dose of pressor; pain controlled better, but still present; ostomy pink and viable; cont supportive care pain control, pressors, OOBTC, PT/OT will cont to follow
[2019-01-10] MEDS: Dorzolamide/Timolol 1 DROP RIGHT EYE SCH ×2 (09:49→20:43)
[2019-01-10 10:47] LABS: Hematocrit 30.4 % (37.5-50.1); Hemoglobin 9.7 g/dL (12.9-16.9)
[2019-01-10] MEDS: Norepinephrine 4 MG in D5% in Water 250 ML IVC SCH (11:29)
[2019-01-10] MEDS ORDERED: Furosemide 40 MG/4 ML VIAL IVP ONE (12:21)
[2019-01-10] MEDS ORDERED: Clinimix E 5%-15% SOLUTION 2,000 ML with MVI, adult with vitamin K 10 ML IVC SCH (17:00)
[2019-01-10 18:44] LABS: Hematocrit 30.5 % (37.5-50.1); Hemoglobin 9.8 g/dL (12.9-16.9)
[2019-01-10] MEDS: Latanoprost 2.5 ML BOTTLE RIGHT EYE SCH (20:21)
[2019-01-11] MEDS: Norepinephrine 4 MG in D5% in Water 250 ML IVC SCH (00:16)
[2019-01-11 00:31] LABS: Hematocrit 28.8 % (37.5-50.1); Hemoglobin 9.2 g/dL (12.9-16.9)
[2019-01-11 04:15] LABS: Basophils % 0.1 %; Hematocrit 29.1 % (37.5-50.1); Hemoglobin 9.2 g/dL (12.9-16.9); Immature Granulocytes % 0.6 % (0-4); Lymphocytes # 0.5 K/mcL (0.6-4.6); Lymphocytes % 5.8 %; Mean Corpuscular HGB Conc 31.6 g/dL (31.6-35.5); Mean Corpuscular Hemoglobin 28.3 pg (28.0-33.3); Mean Corpuscular Volume 89.5 fL (83.0-100.0); Mean Platelet Volume 12.4 fL (9.4-12.4); Monocytes # 0.6 K/mcL (0.0-1.3); Monocytes % 6.6 %; Neutrophils # 8.1 K/mcL (1.6-8.9); Platelet Count 165 K/mcL (140-400); Red Blood Count 3.25 M/mcL (4.19-5.50); Red Cell Distribution Width 16.3 % (11.5-14.5); Segmented Neutrophils % 86.9 %; White Blood Count 9.3 K/mcL (4.3-11.1)
[2019-01-11 04:17] LABS: VBG Ionized Calcium 1.08 mmol/L (1.15-1.35)
[2019-01-11] MEDS: Insulin LISPRO 300 UNITS/3 ML VIAL SQ SCH ×5 (04:26→20:54)
[2019-01-11 04:32] LABS: Calcium 7.9 mg/dL (8.6-10.3); Magnesium 1.6 mg/dL (1.6-2.6); Phosphorous 2.2 mg/dL (2.7-4.5); Potassium 4.1 mEq/L (3.5-5.1)
[2019-01-11 05:10] LABS: Hypochromasia Present (Not Present); Platelet Estimate Normal (Normal); Tear Drop Cells 1+ (Not Present)
[2019-01-11 05:11] LABS: Burr Cells 1+ (Not Present)
[2019-01-11] MEDS: Cefepime HCl 2,000 MG in Water for inj. (sterile) 20 ML IVP SCH (05:42)
--- NOTE | 2019-01-11 08:02 | Pulmonology Progress Note ---
<Fabio Domingo - Last Filed: 01/11/19 19:04> Date of Encounter: 01/11/19 Time of Encounter: 08:02 Assessment and Plan (1) Sepsis Current Visit: Yes Status: Acute Patient was admitted with pain at ostomy site, likely secondary to ischemia from stricture He was taken for massive intra-abdominal surgery consisting of lysis adhesions/cholectomy/small bowel resection He was transferred to the ICU due to anticipation of infection and sepsis secondary to unavoidable surgical contamination He is no longer requiring norepinephrine and is otherwise hemodynamically stable Continue cefepime and Flagyl for intestinal haroon coverage Other supportive care as necessary Qualifiers: Sepsis type: sepsis due to unspecified organism Qualified Code(s): A41.9 - Sepsis, unspecified organism (2) Status post colon resection Current Visit: Yes Status: Acute (3) Diabetes Current Visit: Yes Status: Acute Patient is chronic diabetic Monitoring glucose, minimally elevated Patient is receiving total parenteral nutrition Every 4 hours Accu-Cheks and high dose sliding scale insulin protocol Qualifiers: Diabetes mellitus type: type 2 Diabetes mellitus [facility] insulin use: without 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 Diabetes mellitus complication status: without complication Qualified Code(s): E11.9 - Type 2 diabetes mellitus without complications (4) Atrial fibrillation Current Visit: No Status: Chronic History of atrial fibrillation, rate currently controlled, we will continue to monitor Qualifiers: Atrial fibrillation type: paroxysmal Qualified Code(s): I48.0 - Paroxysmal atrial fibrillation (5) Glaucoma Current Visit: No Status: Chronic History of glaucoma, continuing home eyedrop medications Qualifiers: Glaucoma type: unspecified Laterality: bilateral Qualified Code(s): H40.9 - Unspecified glaucoma (6) TONO (acute kidney injury) Current Visit: Yes Status: Acute Acute kidney injury likely secondary to prerenal from sepsis and hypotension We will continue to monitor urine output and creatinine and electrolytes Subjective Principal diagnosis: Postop colectomy and colostomy Interval history: No acute events reported overnight, hemoglobin and creatinine have remained stable. Patient alert and oriented and comfortable today. Objective PUL Vital signs: Last Vital Signs Temp 98.2 F 01/11/19 07:00 Pulse 99 01/11/19 06:00 Resp 26 01/11/19 06:00 BP 117/52 01/11/19 06:00 Pulse Ox 91 01/11/19 06:00 General appearance: no acute distress Eyes: nonicteric ENT: oropharynx dry Effort: normal Auscultation: bilateral: clear Cardiovascular: other (Tachycardic, regular rhythm) Gastrointestinal: absent bowel sounds, soft, tender, non-distended Integumentary: normal, other (Large abdominal bandaging clean and dry and intact) Extremities: no cyanosis, no edema, pink and warm, pulses normal Musculoskeletal: no deformities normal mental status Results - Laboratory Findings CBC and BMP: 01/11/19 03:45 01/11/19 03:45 PT/INR, D-dimer PT 12.7 Seconds (9.4-12.1) H 01/08/19 06:27 Abnormal lab findings: Abnormal lab results WBC 11.3 K/mcL (4.3-11.1) H 01/08/19 06:27 RBC 3.25 M/mcL (4.19-5.50) L 01/11/19 03:45 Hgb 9.2 g/dL (12.9-16.9) L 01/11/19 03:45 Hct 29.1 % (37.5-50.1) L 01/11/19 03:45 MCH 27.8 pg (28.0-33.3) L 01/09/19 03:58 MCHC 30.7 g/dL (31.6-35.5) L 01/09/19 03:58 RDW 16.3 % (11.5-14.5) H 01/11/19 03:45 34.0 % (0-4) H 01/10/19 04:15 2.0 % (0) H 01/10/19 04:15 0.5 K/mcL (0.6-4.6) L 01/11/19 03:45 Present (Not Present) A 01/10/19 04:15 Present (Not Present) A 01/11/19 03:45 1+ (Not Present) A 01/11/19 03:45 1+ (Not Present) A 01/11/19 03:45 PT 12.7 Seconds (9.4-12.1) H 01/08/19 06:27 APTT 46.9 Seconds (26.0-36.0) H 01/08/19 06:27 Sodium 128 mEq/L (136-145) L 01/11/19 03:45 Chloride 108 mEq/L (98-107) H 01/10/19 04:15 Carbon Dioxide 18 mEq/L (23-29) L 01/11/19 03:45 BUN 43 mg/dL (8-23) H 01/11/19 03:45 2.18 mg/dL (0.70-1.30) H 01/11/19 03:45 Est GFR ( Amer) 36 (> 60) L 01/11/19 03:45 Est GFR (Non-Af Amer) 30 (> 60) L 01/11/19 03:45 Glucose 493 mg/dL (70-105) H 01/11/19 03:45 POC Glucose 295 mg/dL (70-99) H 01/11/19 07:14 6.2 % (-5.6) H 01/07/19 08:46 Lactic Acid 2.4 mmol/L (0.5-2.2) H 01/10/19 00:14 Calcium 7.9 mg/dL (8.6-10.3) L 01/11/19 03:45 Venous Ioniz Calcium 1.08 mmol/L (1.15-1.35) L 01/11/19 04:14 Phosphorus 2.2 mg/dL (2.7-4.5) L 01/11/19 03:45 AST 12 Units/L (13-39) L 01/08/19 06:27 B-Natriuretic Peptide 300 pg/mL (Less than 100) H 01/09/19 15:18 8.4 mg/dL (17.0-34.0) L 01/10/19 04:15 Triglycerides 179 mg/dL (< 150) H 01/10/19 04:15 6 Units/L (11-82) L 01/07/19 08:46 Cloudy (Clear) A 01/07/19 11:03 Ur Leukocyte Esterase Moderate (Negative) H 01/07/19 11:03 3-5 per hpf (0-3) H 01/07/19 11:03 50-100 per hpf (0-3) H 01/07/19 11:03 Ur Squamous Epith Cells Many per lpf (None-Few) H 01/07/19 11:03 Many per hpf (None-Few) H 01/07/19 11:03 Ur Culture Indicated? YES (NO) A 01/07/19 11:03 - Microbiology Findings Microbiology Findings: Microbiology, Last 48 Hours 01/07/19 11:03 Urine Culture - Final Urine,Clean Catch No significant growth. 01/09/19 08:00 Blood Culture - Preliminary Peripheral Venipuncture Culture is incubating and being continuously monitored for growth. Final report to follow. 01/09/19 08:07 Blood Culture - Preliminary Peripheral Venipuncture Culture is incubating and being continuously monitored for growth. Final report to follow. - Clinical Findings Intake & Output: Intake & Output 01/10/19 01/11/19 01/11/19 23:59 07:59 15:59 Intake Total 100 / 640.2 624 / 624 Output Total 115 / 887 345 / 345 Balance -15 / -246.8 279 / 279 Weight 87.5 kg Consult Discharge Plan - Plan Referrals: Rodriguez,Ranjit Weston MD [Primary Care Provider] - <Lucian Sherwood - Last Filed: 01/11/19 21:30> Date of Encounter: 01/11/19 Objective PUL Vital signs: Last Vital Signs Temp 98.2 F 01/11/19 07:00 Pulse 102 01/11/19 08:30 Resp 27 01/11/19 08:30 BP 117/51 01/11/19 08:30 Pulse Ox 94 01/11/19 08:30 Results - Laboratory Findings CBC and BMP: 01/11/19 03:45 01/11/19 03:45 PT/INR, D-dimer PT 12.7 Seconds (9.4-12.1) H 01/08/19 06:27 Abnormal lab findings: Abnormal lab results WBC 11.3 K/mcL (4.3-11.1) H 01/08/19 06:27 RBC 3.25 M/mcL (4.19-5.50) L 01/11/19 03:45 Hgb 9.2 g/dL (12.9-16.9) L 01/11/19 03:45 Hct 29.1 % (37.5-50.1) L 01/11/19 03:45 MCH 27.8 pg (28.0-33.3) L 01/09/19 03:58 MCHC 30.7 g/dL (31.6-35.5) L 01/09/19 03:58 RDW 16.3 % (11.5-14.5) H 01/11/19 03:45 34.0 % (0-4) H 01/10/19 04:15 2.0 % (0) H 01/10/19 04:15 0.5 K/mcL (0.6-4.6) L 01/11/19 03:45 Present (Not Present) A 01/10/19 04:15 Present (Not Present) A 01/11/19 03:45 1+ (Not Present) A 01/11/19 03:45 1+ (Not Present) A 01/11/19 03:45 PT 12.7 Seconds (9.4-12.1) H 01/08/19 06:27 APTT 46.9 Seconds (26.0-36.0) H 01/08/19 06:27 Sodium 128 mEq/L (136-145) L 01/11/19 03:45 Chloride 108 mEq/L (98-107) H 01/10/19 04:15 Carbon Dioxide 18 mEq/L (23-29) L 01/11/19 03:45 BUN 43 mg/dL (8-23) H 01/11/19 03:45 2.18 mg/dL (0.70-1.30) H 01/11/19 03:45 Est GFR ( Amer) 36 (> 60) L 01/11/19 03:45 Est GFR (Non-Af Amer) 30 (> 60) L 01/11/19 03:45 Glucose 493 mg/dL (70-105) H 01/11/19 03:45 POC Glucose 295 mg/dL (70-99) H 01/11/19 07:14 6.2 % (-5.6) H 01/07/19 08:46 Lactic Acid 2.4 mmol/L (0.5-2.2) H 01/10/19 00:14 Calcium 7.9 mg/dL (8.6-10.3) L 01/11/19 03:45 Venous Ioniz Calcium 1.08 mmol/L (1.15-1.35) L 01/11/19 04:14 Phosphorus 2.2 mg/dL (2.7-4.5) L 01/11/19 03:45 AST 12 Units/L (13-39) L 01/08/19 06:27 B-Natriuretic Peptide 300 pg/mL (Less than 100) H 01/09/19 15:18 8.4 mg/dL (17.0-34.0) L 01/10/19 04:15 Triglycerides 179 mg/dL (< 150) H 01/10/19 04:15 6 Units/L (11-82) L 01/07/19 08:46 Cloudy (Clear) A 01/07/19 11:03 Ur Leukocyte Esterase Moderate (Negative) H 01/07/19 11:03 3-5 per hpf (0-3) H 01/07/19 11:03 50-100 per hpf (0-3) H 01/07/19 11:03 Ur Squamous Epith Cells Many per lpf (None-Few) H 01/07/19 11:03 Many per hpf (None-Few) H 01/07/19 11:03 Ur Culture Indicated? YES (NO) A 01/07/19 11:03 - Microbiology Findings Microbiology Findings: Microbiology, Last 48 Hours 01/07/19 11:03 Urine Culture - Final Urine,Clean Catch No significant growth. 01/09/19 08:00 Blood Culture - Preliminary Peripheral Venipuncture Culture is incubating and being continuously monitored for growth. Final report to follow. 01/09/19 08:07 Blood Culture - Preliminary Peripheral Venipuncture Culture is incubating and being continuously monitored for growth. Final report to follow. - Clinical Findings Intake & Output: Intake & Output 01/10/19 01/11/19 01/11/19 23:59 07:59 15:59 Intake Total 100 / 640.2 624 / 624 Output Total 115 / 887 345 / 345 Balance -15 / -246.8 279 / 279 Weight 87.5 kg - Attending Attestation I examined this patient and my medical decision-making was reviewed with the Resident Physician. I agree with the documented findings, disposition and treatment plan as described except to the extent set forth below. Patient seen and examined. Labs, radiology, chart personally reviewed. Agree with resident's history and physical, assessment, plan with following comments: [employer]: Patient follows commands, patient is lethargic and goal for pain control Pulmonary: Acceptable oxygenation and ventilation and need to encourage incentive spirometry. Cardiovascular: Patient is in shock and most likely septic in nature and he is on Levophed. Since his BP is acceptable will wean off his Levophed and if he becomes unstable, then will treat with Albumin first to give him more volume and if no improvement, then will restart Levophed. GI: Nutrition per dietary and GI prophylaxis per routine and discussed with Dr. Zhong. Heme: DVT prophylaxis per routine. Close monitoring his H&H ID: Continue antibiotics and plan to de-escalation Renal; urine out put and renal function reviewed Endorcine: blood glucose is monitored Lines: all lines checked and no evidence of infections Skin: skin care to prevent pressure ulcers per nursing routine care Dispo: ICU Code: Full. Prognosis. Fair now, however overall suspect is poor. I spent 33 min of Critical Care time with this patient. It involved decision making of high complexity to assess, manipulate, and support vital organ system failure and/or to prevent further life threatening deterioration of the patient's condition. The time involved in the performance of separately reportable procedures was not counted toward critical care time.
[2019-01-11] MEDS: MetroNIDAZOLE 500 MG/100 ML 500 MG/100 ML BAG IVPB SCH ×3 (08:29→23:28)
--- NOTE | 2019-01-11 09:48 | AcuteCareSurgery Progress Note ---
Date of Encounter: 01/11/19 Time of Encounter: 08:00 - Assessment and Plan (1) Colon obstruction Current Visit: Yes Status: Acute The patient underwent exploratory laparotomy for colon obstruction at the level of the ostomy. The ostomy was found to be ischemic and densely scarred. Intra- abdominal adhesions were severe and necessitated a prolonged operation including small bowel resection and resection of the distal transverse colon, splenic flexure, and descending colon. The ostomy was resected. A new ostomy was formed at the proximal transverse colon in the right upper quadrant. The patient is awake and alert. He is weaning off pressor agents. Condition appears to be stable and improved from yesterday Subjective Narrative: The patient is seen and evaluated on morning rounds with the acute care surgery team. His pain complaints are less today and focused on the right side of the abdomen. His hemoglobin is stable. White blood cell count is normal. He is on a low dose of pressor agent that is being weaned. He is awake and alert. The ostomy is pink and well perfused. Continue broad-spectrum antibiotics. Objective Vital Signs - Last 8 Hours Temp Pulse Resp BP Pulse Ox 01/11/19 08:30 102 27 117/51 94 01/11/19 07:30 100 28 120/48 93 01/11/19 07:00 98.2 F 01/11/19 06:00 99 26 117/52 91 01/11/19 05:00 97 26 115/51 92 01/11/19 04:32 98.1 F 01/11/19 04:00 98 24 115/48 93 01/11/19 03:00 98 24 121/50 93 01/11/19 02:00 99 26 122/50 92 Intake and Output 01/10/19 01/11/19 01/11/19 23:59 07:59 15:59 Intake Total 100 / 640.2 624 / 624 Output Total 115 / 887 345 / 345 Balance -15 / -246.8 279 / 279 Intake: IV Fluids 100 / 640.2 624 / 624 Levophed 4 MG In Dextrose 5% 254 / 254 250 ML @ 8 MCG/MIN 30.48 mls/hr IVC CONT [facility] Rx#:[id number] Maxipime 2,000 MG In Water for 20 / 20 inj. (sterile) 20 ML @ 300 mls/ hr IVP Q24H [facility] Rx#:[id number] Intralipid 20% 250 ML @ 21 mls/ 250 / 250 hr IVPB DAILY@1700 [facility] Rx#: [id number] Flagyl Premix 500 MG/100 ML 500 100 / 300 100 / 100 mg In 100 ml @ 100 mls/hr IVPB Q8HR [facility] Rx#:[id number] Output: Catheter 100 / 850 300 / 300 Gastric Drainage 45 / 45 Other: Weight 87.5 kg Blood Glucose* 220 295 Patient Weight 01/11/19 23:59 Weight 87.5 kg - General physical appearance moderate pain, chronically ill - Respiratory normal expansion, normal respiratory effort, clear to percussion, clear to auscultation - Cardiovascular Cardiovascular exam: Present: RRR, no murmurs/rubs/gallops - Abdomen Abdomen: Present: tender Abdominal Tenderness: RUQ, RLQ (Ostomy is pink and well-perfused) - Neurologic CN 2-12 grossly intact, normal coordination, normal sensation - Psychiatric oriented to time, oriented to person, oriented to place, speech is normal, memory intact - Labs 01/11/19 03:45 01/11/19 03:45 Diabetes panel 01/11/19 Range/Units 03:45 Sodium 128 L (136-145) mEq/L Potassium 4.1 (3.5-5.1) mEq/L Chloride 100 (98-107) mEq/L Carbon Dioxide 18 L (23-29) mEq/L BUN 43 H (8-23) mg/dL Creatinine 2.18 H (0.70-1.30) mg/dL Glucose 493 H (70-105) mg/dL Calcium 7.9 L (8.6-10.3) mg/dL Calcium panel 01/11/19 Range/Units 03:45 Calcium 7.9 L (8.6-10.3) mg/dL Phosphorus 2.2 L (2.7-4.5) mg/dL Pituitary panel 01/11/19 Range/Units 03:45 Sodium 128 L (136-145) mEq/L Potassium 4.1 (3.5-5.1) mEq/L Chloride 100 (98-107) mEq/L Carbon Dioxide 18 L (23-29) mEq/L BUN 43 H (8-23) mg/dL Creatinine 2.18 H (0.70-1.30) mg/dL Glucose 493 H (70-105) mg/dL Calcium 7.9 L (8.6-10.3) mg/dL Adrenal panel 01/11/19 Range/Units 03:45 Sodium 128 L (136-145) mEq/L Potassium 4.1 (3.5-5.1) mEq/L Chloride 100 (98-107) mEq/L Carbon Dioxide 18 L (23-29) mEq/L BUN 43 H (8-23) mg/dL Creatinine 2.18 H (0.70-1.30) mg/dL Glucose 493 H (70-105) mg/dL Calcium 7.9 L (8.6-10.3) mg/dL Consult Discharge Plan - Plan Referrals: Ranjit Rodriguez MD [Primary Care Provider] -
[2019-01-11] MEDS: Dorzolamide/Timolol 1 DROP RIGHT EYE SCH ×2 (12:47→22:12)
[2019-01-11] MEDS ORDERED: Sodium Phosphate 20 MMOL in 0.9 % Sodium Chloride 250 ML IVPB ONE (13:47)
[2019-01-11] MEDS ORDERED: Clinimix E 5%-15% SOLUTION 2,000 ML with MVI, adult with vitamin K 10 ML IVC SCH (17:00)
[2019-01-11] MEDS ORDERED: *HR* Metoprolol 5 MG/5 ML VIAL IVP ONE (19:56)
--- NOTE | 2019-01-11 20:33 | Event Note ---
Date of Encounter: 01/11/19 Time of Encounter: 20:31 I was alert by the nurse of the patient developing atrial fibrillation with rapid ventricular response in the 140s. I evaluated the patient and patient was complaining of palpitations and chest heaviness. Blood pressure is noted to be 110/68. Patient has a history of paroxysmal A. fib and takes amiodarone and metoprolol at home however he is currently nothing by mouth because of abdominal surgery and currently on TPN. Patient was given metoprolol 2.5 mg IV which improved his heart rate some down to about 120 however blood pressure dropped slightly to 98/56. Patient was reassessed and symptomatically he felt improved. Given his heart rate is patient is mildly symptomatic, will start IV amiodarone drip at 1 mg/m for 6 hours and 0.5 mg/m after this.
[2019-01-11] MEDS: Insulin DETEMIR 100 UNIT/ML X5UNITS SQ SCH (20:53)
[2019-01-11] MEDS: Amiodarone Premix 360 MG/200 ML BAG IVC ONE (20:53)
[2019-01-11] MEDS: Latanoprost 2.5 ML BOTTLE RIGHT EYE SCH (20:55)
[2019-01-11] MEDS: Amiodarone Premix 360 MG/200 ML BAG IVC SCH (21:29)
[2019-01-12] MEDS: Insulin LISPRO 300 UNITS/3 ML VIAL SQ SCH ×3 (00:25→08:11)
[2019-01-12] MEDS: Amiodarone Premix 360 MG/200 ML BAG IVC ONE (02:14)
[2019-01-12 04:51] LABS: Eosinophils % 0.1 %; Immature Granulocytes % 0.9 % (0-4); Lymphocytes # 0.7 K/mcL (0.6-4.6); Lymphocytes % 8.7 %; Mean Corpuscular HGB Conc 32.1 g/dL (31.6-35.5); Mean Corpuscular Hemoglobin 28.4 pg (28.0-33.3); Mean Corpuscular Volume 88.3 fL (83.0-100.0); Mean Platelet Volume 12.3 fL (9.4-12.4); Monocytes % 8.4 %; Neutrophils # 6.3 K/mcL (1.6-8.9); Nucleated Red Blood Cells 0.3 /100 WBC (0); Platelet Count 146 K/mcL (140-400); Red Blood Count 3.17 M/mcL (4.19-5.50); Red Cell Distribution Width 16.7 % (11.5-14.5); Segmented Neutrophils % 81.9 %; White Blood Count 7.7 K/mcL (4.3-11.1)
[2019-01-12 04:56] LABS: Monocytes # 0.7 K/mcL (0.0-1.3)
[2019-01-12] MEDS: Cefepime HCl 2,000 MG in Water for inj. (sterile) 20 ML IVP SCH (05:09)
[2019-01-12 05:11] LABS: Calcium 8.6 mg/dL (8.6-10.3); Magnesium 1.8 mg/dL (1.6-2.6); Potassium 3.7 mEq/L (3.5-5.1)
[2019-01-12 05:17] LABS: Platelet Estimate Normal (Normal)
[2019-01-12 05:18] LABS: Anisocytosis 1+ (Not Present)
--- NOTE | 2019-01-12 07:47 | Pulmonology Progress Note ---
<Fabio Domingo - Last Filed: 01/12/19 19:19> Date of Encounter: 01/12/19 Time of Encounter: 07:47 Assessment and Plan (1) Sepsis Current Visit: Yes Status: Acute Patient was admitted with pain at ostomy site, likely secondary to ischemia from stricture He was taken for massive intra-abdominal surgery consisting of lysis adhesions/cholectomy/small bowel resection He was transferred to the ICU due to anticipation of infection and sepsis secondary to unavoidable surgical contamination He is no longer requiring norepinephrine and is otherwise hemodynamically stable Continue cefepime and Flagyl for intestinal haroon coverage Other supportive care as necessary Qualifiers: Sepsis type: sepsis due to unspecified organism Qualified Code(s): A41.9 - Sepsis, unspecified organism (2) Status post colon resection Current Visit: Yes Status: Acute (3) Diabetes Current Visit: Yes Status: Acute Patient is chronic diabetic Patient is receiving total parenteral nutrition Insulin drip due to continued elevated glucose Qualifiers: Diabetes mellitus type: type 2 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: without retirement use Diabetes mellitus complication status: without complication Qualified Code(s): E11.9 - Type 2 diabetes mellitus without complications (4) Atrial fibrillation Current Visit: Yes Status: Chronic History of atrial fibrillation, RVR overnight, currently on amiodarone drip and controlled Qualifiers: Atrial fibrillation type: paroxysmal Qualified Code(s): I48.0 - Paroxysmal atrial fibrillation (5) Glaucoma Current Visit: No Status: Chronic History of glaucoma, continuing home eyedrop medications Qualifiers: Glaucoma type: unspecified Laterality: bilateral Qualified Code(s): H40.9 - Unspecified glaucoma (6) TONO (acute kidney injury) Current Visit: Yes Status: Acute Acute kidney injury likely secondary to prerenal from sepsis and hypotension Creatinine improved today We will continue to monitor urine output and creatinine and electrolytes Subjective Principal diagnosis: Postop colectomy and colostomy Interval history: A. fib RVR overnight, amiodarone drip started. Patient alert and oriented and comfortable today, however he is complaining of or complaints not related to current situation likely related to delirium. Objective PUL Vital signs: Last Vital Signs Temp 98.0 F 01/12/19 04:00 Pulse 125 01/12/19 07:00 Resp 30 01/12/19 07:00 BP 134/69 01/12/19 07:00 Pulse Ox 94 01/12/19 07:00 General appearance: no acute distress Eyes: nonicteric ENT: oropharynx dry Effort: normal Auscultation: bilateral: clear Cardiovascular: other (Tachycardic rate, irregularly irregular rhythm) Gastrointestinal: absent bowel sounds, soft, tender, non-distended, other (Bandaging clean/dry/intact) Integumentary: normal Extremities: no cyanosis, no edema, pink and warm, pulses normal Musculoskeletal: no deformities normal mental status (Alert and oriented however making inappropriate comments) Results - Laboratory Findings CBC and BMP: 01/12/19 04:30 01/12/19 04:30 PT/INR, D-dimer PT 12.7 Seconds (9.4-12.1) H 01/08/19 06:27 Abnormal lab findings: Abnormal lab results WBC 11.3 K/mcL (4.3-11.1) H 01/08/19 06:27 RBC 3.17 M/mcL (4.19-5.50) L 01/12/19 04:30 Hgb 9.0 g/dL (12.9-16.9) L 01/12/19 04:30 Hct 28.0 % (37.5-50.1) L 01/12/19 04:30 MCH 27.8 pg (28.0-33.3) L 01/09/19 03:58 MCHC 30.7 g/dL (31.6-35.5) L 01/09/19 03:58 RDW 16.7 % (11.5-14.5) H 01/12/19 04:30 34.0 % (0-4) H 01/10/19 04:15 2.0 % (0) H 01/10/19 04:15 0.5 K/mcL (0.6-4.6) L 01/11/19 03:45 Nucleated RBCs/100 WBC 0.3 /100 WBC (0) H 01/12/19 04:30 Present (Not Present) A 01/10/19 04:15 Present (Not Present) A 01/11/19 03:45 1+ (Not Present) A 01/12/19 04:30 1+ (Not Present) A 01/11/19 03:45 1+ (Not Present) A 01/11/19 03:45 PT 12.7 Seconds (9.4-12.1) H 01/08/19 06:27 APTT 46.9 Seconds (26.0-36.0) H 01/08/19 06:27 Sodium 135 mEq/L (136-145) L 01/12/19 04:30 Chloride 108 mEq/L (98-107) H 01/10/19 04:15 Carbon Dioxide 20 mEq/L (23-29) L 01/12/19 04:30 BUN 50 mg/dL (8-23) H 01/12/19 04:30 1.95 mg/dL (0.70-1.30) H 01/12/19 04:30 Est GFR ( Amer) 41 (> 60) L 01/12/19 04:30 Est GFR (Non-Af Amer) 34 (> 60) L 01/12/19 04:30 Glucose 341 mg/dL (70-105) H 01/12/19 04:30 POC Glucose 317 mg/dL (70-99) H 01/12/19 07:26 6.2 % (-5.6) H 01/07/19 08:46 307 (280-300) H 01/12/19 04:30 Lactic Acid 2.4 mmol/L (0.5-2.2) H 01/10/19 00:14 Calcium 7.9 mg/dL (8.6-10.3) L 01/11/19 03:45 Venous Ioniz Calcium 1.08 mmol/L (1.15-1.35) L 01/11/19 04:14 Phosphorus 2.0 mg/dL (2.7-4.5) L 01/12/19 04:30 AST 12 Units/L (13-39) L 01/08/19 06:27 B-Natriuretic Peptide 300 pg/mL (Less than 100) H 01/09/19 15:18 8.4 mg/dL (17.0-34.0) L 01/10/19 04:15 Triglycerides 179 mg/dL (< 150) H 01/10/19 04:15 6 Units/L (11-82) L 01/07/19 08:46 Cloudy (Clear) A 01/07/19 11:03 Ur Leukocyte Esterase Moderate (Negative) H 01/07/19 11:03 3-5 per hpf (0-3) H 01/07/19 11:03 50-100 per hpf (0-3) H 01/07/19 11:03 Ur Squamous Epith Cells Many per lpf (None-Few) H 01/07/19 11:03 Many per hpf (None-Few) H 01/07/19 11:03 Ur Culture Indicated? YES (NO) A 01/07/19 11:03 - Clinical Findings Intake & Output: Intake & Output 01/11/19 01/11/19 01/12/19 15:59 23:59 07:59 Intake Total 100 / 1074 350 / 1074 600 / 600 Output Total 350 / 995 300 / 995 220 / 220 Balance -250 / 79 50 / 79 380 / 380 Weight 92 kg Consult Discharge Plan - Plan Referrals: Ranjit Rodriguez MD [Primary Care Provider] - <Lucian Sherwood - Last Filed: 01/13/19 21:36> Date of Encounter: 01/12/19 Objective PUL Vital signs: Last Vital Signs Temp 97.6 F 01/12/19 07:26 Pulse 147 01/12/19 09:00 Resp 32 01/12/19 09:00 BP 125/66 01/12/19 09:00 Pulse Ox 92 01/12/19 09:00 Results - Laboratory Findings CBC and BMP: 01/13/19 04:00 01/13/19 19:55 PT/INR, D-dimer PT 12.7 Seconds (9.4-12.1) H 01/08/19 06:27 Abnormal lab findings: Abnormal lab results WBC 11.3 K/mcL (4.3-11.1) H 01/08/19 06:27 RBC 3.17 M/mcL (4.19-5.50) L 01/12/19 04:30 Hgb 9.0 g/dL (12.9-16.9) L 01/12/19 04:30 Hct 28.0 % (37.5-50.1) L 01/12/19 04:30 MCH 27.8 pg (28.0-33.3) L 01/09/19 03:58 MCHC 30.7 g/dL (31.6-35.5) L 01/09/19 03:58 RDW 16.7 % (11.5-14.5) H 01/12/19 04:30 34.0 % (0-4) H 01/10/19 04:15 2.0 % (0) H 01/10/19 04:15 0.5 K/mcL (0.6-4.6) L 01/11/19 03:45 Nucleated RBCs/100 WBC 0.3 /100 WBC (0) H 01/12/19 04:30 Present (Not Present) A 01/10/19 04:15 Present (Not Present) A 01/11/19 03:45 1+ (Not Present) A 01/12/19 04:30 1+ (Not Present) A 01/11/19 03:45 1+ (Not Present) A 01/11/19 03:45 PT 12.7 Seconds (9.4-12.1) H 01/08/19 06:27 APTT 46.9 Seconds (26.0-36.0) H 01/08/19 06:27 Sodium 135 mEq/L (136-145) L 01/12/19 04:30 Chloride 108 mEq/L (98-107) H 01/10/19 04:15 Carbon Dioxide 20 mEq/L (23-29) L 01/12/19 04:30 BUN 50 mg/dL (8-23) H 01/12/19 04:30 1.95 mg/dL (0.70-1.30) H 01/12/19 04:30 Est GFR ( Amer) 41 (> 60) L 01/12/19 04:30 Est GFR (Non-Af Amer) 34 (> 60) L 01/12/19 04:30 Glucose 341 mg/dL (70-105) H 01/12/19 04:30 POC Glucose 317 mg/dL (70-99) H 01/12/19 07:26 6.2 % (-5.6) H 01/07/19 08:46 307 (280-300) H 01/12/19 04:30 Lactic Acid 2.4 mmol/L (0.5-2.2) H 01/10/19 00:14 Calcium 7.9 mg/dL (8.6-10.3) L 01/11/19 03:45 Venous Ioniz Calcium 1.08 mmol/L (1.15-1.35) L 01/11/19 04:14 Phosphorus 2.0 mg/dL (2.7-4.5) L 01/12/19 04:30 AST 12 Units/L (13-39) L 01/08/19 06:27 B-Natriuretic Peptide 300 pg/mL (Less than 100) H 01/09/19 15:18 8.4 mg/dL (17.0-34.0) L 01/10/19 04:15 Triglycerides 179 mg/dL (< 150) H 01/10/19 04:15 6 Units/L (11-82) L 01/07/19 08:46 Cloudy (Clear) A 01/07/19 11:03 Ur Leukocyte Esterase Moderate (Negative) H 01/07/19 11:03 3-5 per hpf (0-3) H 01/07/19 11:03 50-100 per hpf (0-3) H 01/07/19 11:03 Ur Squamous Epith Cells Many per lpf (None-Few) H 01/07/19 11:03 Many per hpf (None-Few) H 01/07/19 11:03 Ur Culture Indicated? YES (NO) A 01/07/19 11:03 - Clinical Findings Intake & Output: Intake & Output 01/11/19 01/12/19 01/12/19 23:59 07:59 15:59 Intake Total 350 / 1074 600 / 700 100 / 700 Output Total 300 / 995 445 / 445 Balance 50 / 79 155 / 255 100 / 255 Weight 92 kg - Attending Attestation I examined this patient and my medical decision-making was reviewed with the Resident Physician. I agree with the documented findings, disposition and treatment plan as described except to the extent set forth below. Patient seen and examined. Labs, radiology, chart personally reviewed. 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 Will try Haldol and if no improvement, may need soft restraint. Need to normalize his day as much as possible with daytime light Pulmonary: Acceptable oxygenation and ventilation and encourage incentive s pirometry if he can participate. Cardiovascular: Pt is on Amiodarone and to continue because he is still tachycardic and not able to take oral intake. GI: Nutrition per dietary and GI prophylaxis per routine and TPN. Heme: DVT prophylaxis per routine ID: Continue antibiotics and plan to de-escalation Renal; urine out put and renal function reviewed Endorcine: blood glucose is monitored and start insulin drip Lines: all lines checked and no evidence of infections Skin: skin care to prevent pressure ulcers per nursing routine care Dispo: 2N when stable Code: Full. Prognosis. Guarded to fair. I'm concern about his confusion that may affect his safety.
[2019-01-12] MEDS: MetroNIDAZOLE 500 MG/100 ML 500 MG/100 ML BAG IVPB SCH ×2 (08:10→15:08)
[2019-01-12] MEDS: Dorzolamide/Timolol 1 DROP RIGHT EYE SCH ×2 (08:12→22:01)
[2019-01-12] MEDS: Insulin DETEMIR 100 UNIT/ML X5UNITS SQ SCH (08:27)
[2019-01-12] MEDS ORDERED: Insulin DETEMIR 100 UNIT/ML X5UNITS SQ ONE (09:43)
--- NOTE | 2019-01-12 11:54 | AcuteCareSurgery Progress Note ---
<Rogelio Causey M - Last Filed: 01/12/19 16:51> Date of Encounter: 01/12/19 Objective Vital Signs - Last 8 Hours Temp Pulse Resp BP Pulse Ox 01/12/19 16:00 98 30 117/58 93 01/12/19 15:35 99.0 F 01/12/19 15:21 95 01/12/19 15:00 127 30 106/63 93 01/12/19 14:00 119 24 120/69 93 01/12/19 12:00 121 28 146/71 93 01/12/19 11:17 98.3 F 01/12/19 09:00 147 32 125/66 92 Intake and Output 01/12/19 01/12/19 01/12/19 07:59 15:59 23:59 Intake Total 600 / 3300 2496 / 3300 204 / 3300 Output Total 445 / 1050 605 / 1050 Balance 155 / 2250 1891 / 2250 204 / 2250 Intake: IV Fluids 600 / 3300 2496 / 3300 204 / 3300 Amiodarone Drip Premix 360mg/ 230 / 400 170 / 400 200mL 360 mg In 200 ml @ 1 MG/ MIN 33.333 mls/hr IVC ONCE ONE Rx#:[id number] HumuLIN R 100 UNIT In 0.9 % 16 / 16 Sodium Chloride 100 ML @ 9 UNIT /HR 9.09 mls/hr IVC CONT DANK Rx #:[id number] Clinimix E 5%-15% SOLUTION 2009 / 2009 000 ML @ 65 mls/hr IVC .Q24H [facility] with M.v.i. Adult 10 ml Rx# :[id number] Levophed 4 MG In Dextrose 5% 0 / 0 250 ML @ 8 MCG/MIN 30.48 mls/hr IVC CONT DANK Rx#:[id number] Maxipime 2,000 MG In Water for 20 / 20 inj. (sterile) 20 ML @ 300 mls/ hr IVP Q24H [facility] Rx#:[id number] Ofirmev 1,000 mg/100 ml 1,000 100 / 100 mg In 100 ml @ 400 mls/hr IVPB Q6HR [facility] Rx#:[id number] Intralipid 20% 250 ML @ 21 mls/ 250 / 250 hr IVPB DAILY@1700 [facility] Rx#: [id number] Magnesium Sulfate 2 GM In 0.9 % 104 / 104 Sodium Chloride 100 ML @ 52 mls/hr IVPB Q6H PRN Rx#: [id number] Flagyl Premix 500 MG/100 ML 500 100 / 300 100 / 300 100 / 300 mg In 100 ml @ 100 mls/hr IVPB Q8HR [facility] Rx#:[id number] Potassium Chloride 10 mEq/100mL 100 / 100 10 meq In 100 ml @ 100 mls/hr IVPB Q1H PRN Rx#:[id number] Oral 0 / 0 Output: Stool 0 / 0 0 / 0 Catheter 395 / 895 500 / 895 Gastric Drainage 50 / 155 105 / 155 Other: # Bowel Movements 0 0 Weight 92 kg Blood Glucose* [phone] Patient Weight 01/12/19 23:59 Weight 92 kg - Labs 01/12/19 04:30 01/12/19 04:30 Diabetes panel 01/12/19 Range/Units 04:30 Sodium 135 L (136-145) mEq/L Potassium 3.7 (3.5-5.1) mEq/L Chloride 106 (98-107) mEq/L Carbon Dioxide 20 L (23-29) mEq/L BUN 50 H (8-23) mg/dL Creatinine 1.95 H (0.70-1.30) mg/dL Glucose 341 H (70-105) mg/dL Calcium 8.6 (8.6-10.3) mg/dL Calcium panel 01/12/19 Range/Units 04:30 Calcium 8.6 (8.6-10.3) mg/dL Phosphorus 2.0 L (2.7-4.5) mg/dL Pituitary panel 01/12/19 Range/Units 04:30 Sodium 135 L (136-145) mEq/L Potassium 3.7 (3.5-5.1) mEq/L Chloride 106 (98-107) mEq/L Carbon Dioxide 20 L (23-29) mEq/L BUN 50 H (8-23) mg/dL Creatinine 1.95 H (0.70-1.30) mg/dL Glucose 341 H (70-105) mg/dL Calcium 8.6 (8.6-10.3) mg/dL Adrenal panel 01/12/19 Range/Units 04:30 Sodium 135 L (136-145) mEq/L Potassium 3.7 (3.5-5.1) mEq/L Chloride 106 (98-107) mEq/L Carbon Dioxide 20 L (23-29) mEq/L BUN 50 H (8-23) mg/dL Creatinine 1.95 H (0.70-1.30) mg/dL Glucose 341 H (70-105) mg/dL Calcium 8.6 (8.6-10.3) mg/dL Consult Discharge Plan - Plan Referrals: Ranjit Rodriguez MD [Primary Care Provider] - - Attending Attestation I examined this patient and my medical decision-making was reviewed with the Resident Physician. I agree with the documented findings, disposition and treatment plan as described except to the extent set forth below. I reviewed the above assessment and evaluation and agree with the above plan. Patient awaiting return of bowel function. Patient likely due be transferred to [facility]. <Lu Calix - Last Filed: 01/12/19 17:57> Date of Encounter: 01/12/19 Time of Encounter: 11:51 - Assessment and Plan (1) Colon obstruction Current Visit: Yes Status: Acute Presents with stenosis of the orifice of his colostomy. Has been dilated twice in the past month, currently unable to fit tip of finger into ostomy. 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 Status post laparotomy with lysis of adhesions, unavoidable enterotomy, takedown colostomy, left colon resection, transverse colostomy, small bowel resection with primary anastomosis day 4 Patient delirious today, to be possibly transferred out of ICU Weaned off pressors Afebrile, no leukocytosis Antibiotic coverage day 5-cefepime, metronidazole TPN for nutrition Bowel regimen-Colace Continue wound care Continue to monitor stool, urine, electrolytes to be repleted as necessary Incentive spirometry (2) Sepsis Current Visit: Yes Status: Acute Secondary to ischemic bowel Improved Management per primary Qualifiers: Sepsis type: sepsis due to unspecified organism Qualified Code(s): A41.9 - Sepsis, unspecified organism (3) Hypotension Current Visit: Yes Status: Resolved Resolved Secondary to sepsis due to ischemic bowel Qualifiers: Hypotension type: unspecified hypotension type Qualified Code(s): I95.9 - Hypotension, unspecified (4) Anemia Current Visit: Yes Status: Acute Hemoglobin continues to slowly decline No signs of active bleeding Continue to monitor Management per primary Qualifiers: Anemia type: unspecified type Qualified Code(s): D64.9 - Anemia, unsp ecified (5) Atrial fibrillation Current Visit: Yes Status: Chronic Continue amiodarone Management per primary Qualifiers: Atrial fibrillation type: paroxysmal Qualified Code(s): I48.0 - Paroxysmal atrial fibrillation (6) TONO (acute kidney injury) Current Visit: Yes Status: Acute Patient sustained TONO, secondary to hypotension, sepsis Renally dose medications and try to avoid nephrotoxic agents (7) T2DM (type 2 diabetes mellitus) Current Visit: Yes Status: Chronic Currently on TPN High dose sliding scale Levemir Qualifiers: Diabetes mellitus fdc insulin use: with terminal clerk use Diabetes mellitus complication status: with hyperglycemia Qualified Code(s): E11.65 - Type 2 diabetes mellitus with hyperglycemia; 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 Patient off levothyroid. Patient delirious and confused believing that there are people in the room who are not there and is concerned about his house, alert and oriented 2. Patient continues to require amiodarone for A. fib RVR. He continues on TPN for nutrition. He does state that his abdominal pain is improved. He denies fever, chills, chest pain, shortness of breath, dysuria, calf pain. Objective Vital Signs - Last 8 Hours Temp Pulse Resp BP Pulse Ox 01/12/19 11:17 98.3 F 01/12/19 09:00 147 32 125/66 92 01/12/19 08:00 121 01/12/19 07:26 97.6 F 01/12/19 07:00 125 30 134/69 94 01/12/19 06:00 129 30 125/66 95 01/12/19 05:00 119 30 114/58 94 01/12/19 04:00 98.0 F 135 30 100/62 93 Intake and Output 06/13/19 06/14/19 06/14/19 23:59 07:59 15:59 Intake Total 350 / 1074 600 / 700 100 / 700 Output Total 300 / 995 445 / 770 325 / 770 Balance 50 / 79 155 / -70 -225 / -70 Intake: IV Fluids 350 / 1074 600 / 700 100 / 700 Amiodarone Drip Premix 360mg/ 230 / 230 200mL 360 mg In 200 ml @ 1 MG/ MIN 33.333 mls/hr IVC ONCE ONE Rx#:[id number] Maxipime 2,000 MG In Water for 20 / 20 inj. (sterile) 20 ML @ 300 mls/ hr IVP Q24H [facility] Rx#:[id number] Intralipid 20% 250 ML @ 21 mls/ 250 / 250 hr IVPB DAILY@1700 [facility] Rx#: [id number] Flagyl Premix 500 MG/100 ML 500 100 / 300 100 / 200 100 / 200 mg In 100 ml @ 100 mls/hr IVPB Q8HR [facility] Rx#:[id number] Sodium Phosphate 20 MMOL In 0.9 250 / 250 % Sodium Chloride 250 ML @ 42 mls/hr IVPB ONCE ONE Rx#: [id number] Oral 0 / 0 Output: Stool 0 / 0 0 / 0 Catheter 200 / 800 395 / 645 250 / 645 Gastric Drainage 100 / 195 50 / 125 75 / 125 Other: # Bowel Movements 0 0 Weight 92 kg Blood Glucose* [phone] Patient Weight 01/12/19 23:59 Weight 92 kg - General physical appearance well developed, no distress, other (Alert and oriented 2, delirious, pallor improved) - Eyes PERRL, normal ocular movement - ENT normal pinna, normal mucosa, no congestion - Neck Neck exam: trachea midline, no venous distension - Respiratory normal expansion, normal respiratory effort, clear to percussion, clear to auscultation - Cardiovascular Cardiovascular exam: Present: tachycardia, irregular rhythm, no murmurs/rubs/gallops. Absent: JVD - Abdomen Abdomen: Present: bowel sounds present (Ostomy red, well perfused. No drainage into ostomy bag. G-tube in place, continues to drain.), soft, tender. Absent: distended - Incision Incision: Present: clean and dry, intact. Absent: erythema, purulent - Integumentary no rash, no growths, other (Pallor somewhat improved) - Neurologic normal coordination, normal sensation - Musculoskeletal normal posture - Psychiatric oriented to person, oriented to place - Labs 01/12/19 04:30 01/12/19 04:30 Diabetes panel 01/12/19 Range/Units 04:30 Sodium 135 L (136-145) mEq/L Potassium 3.7 (3.5-5.1) mEq/L Chloride 106 (98-107) mEq/L Carbon Dioxide 20 L (23-29) mEq/L BUN 50 H (8-23) mg/dL Creatinine 1.95 H (0.70-1.30) mg/dL Glucose 341 H (70-105) mg/dL Calcium 8.6 (8.6-10.3) mg/dL Calcium panel 01/12/19 Range/Units 04:30 Calcium 8.6 (8.6-10.3) mg/dL Phosphorus 2.0 L (2.7-4.5) mg/dL Pituitary panel 01/12/19 Range/Units 04:30 Sodium 135 L (136-145) mEq/L Potassium 3.7 (3.5-5.1) mEq/L Chloride 106 (98-107) mEq/L Carbon Dioxide 20 L (23-29) mEq/L BUN 50 H (8-23) mg/dL Creatinine 1.95 H (0.70-1.30) mg/dL Glucose 341 H (70-105) mg/dL Calcium 8.6 (8.6-10.3) mg/dL Adrenal panel 01/12/19 Range/Units 04:30 Sodium 135 L (136-145) mEq/L Potassium 3.7 (3.5-5.1) mEq/L Chloride 106 (98-107) mEq/L Carbon Dioxide 20 L (23-29) mEq/L BUN 50 H (8-23) mg/dL Creatinine 1.95 H (0.70-1.30) mg/dL Glucose 341 H (70-105) mg/dL Calcium 8.6 (8.6-10.3) mg/dL
[2019-01-12] MEDS: Insulin Human Regular 100 UNIT in 0.9 % Sodium Chloride 100 ML IVC SCH ×2 (13:12→19:11)
[2019-01-12] MEDS: Acetaminophen IV 1,000 MG/100 ML INFUS..BTL IVPB SCH ×2 (13:13→21:54)
[2019-01-12] MEDS: Amiodarone Premix 360 MG/200 ML BAG IVC SCH (13:13)
[2019-01-12] MEDS ORDERED: Calcium Gluconate 1gm/50mL 1 GM/50 ML BAG IV PRN (13:30)
[2019-01-12 16:58] LABS: Albumin 2.3 g/dL (3.5-5.7); Albumin/Globulin Ratio 1.1 (1.1-2.2); Bilirubin,Direct 0.2 mg/dL (0.0-0.2); Bilirubin,Indirect 0.4 mg/dL (0.0-1.2); Bilirubin,Total 0.6 mg/dL (0.3-1.0); Globulin 2.1 g/dL (2.4-3.5); Total Protein 4.4 g/dL (6.4-8.9)
[2019-01-12] MEDS ORDERED: Clinimix E 5%-15% SOLUTION 2,000 ML with MVI, adult with vitamin K 10 ML IVC SCH (17:00)
[2019-01-12] MEDS ORDERED: Insulin DETEMIR 100 UNIT/ML X5UNITS SQ SCH (21:00)
[2019-01-12] MEDS: Latanoprost 2.5 ML BOTTLE RIGHT EYE SCH (21:32)
[2019-01-12] MEDS: Norepinephrine 4 MG in D5% in Water 250 ML IVC SCH (21:38)
[2019-01-13] MEDS: Amiodarone Premix 360 MG/200 ML BAG IVC SCH ×3 (00:19→22:59)
[2019-01-13] MEDS: MetroNIDAZOLE 500 MG/100 ML 500 MG/100 ML BAG IVPB SCH ×3 (00:19→16:47)
[2019-01-13] MEDS: Insulin Human Regular 100 UNIT in 0.9 % Sodium Chloride 100 ML IVC SCH ×3 (01:00→22:57)
[2019-01-13] MEDS: Acetaminophen IV 1,000 MG/100 ML INFUS..BTL IVPB SCH ×4 (04:14→18:11)
[2019-01-13 05:05] LABS: Basophils % 0.1 %; Eosinophils % 0.2 %; Hemoglobin 9.1 g/dL (12.9-16.9); Immature Granulocytes % 3.5 % (0-4); Lymphocytes # 0.7 K/mcL (0.6-4.6); Lymphocytes % 7.6 %; Mean Corpuscular HGB Conc 32.5 g/dL (31.6-35.5); Mean Corpuscular Hemoglobin 28.4 pg (28.0-33.3); Mean Corpuscular Volume 87.5 fL (83.0-100.0); Mean Platelet Volume 12.1 fL (9.4-12.4); Monocytes # 0.7 K/mcL (0.0-1.3); Monocytes % 8.1 %; Nucleated Red Blood Cells 1.1 /100 WBC (0); Platelet Count 158 K/mcL (140-400); Red Cell Distribution Width 16.8 % (11.5-14.5); Segmented Neutrophils % 80.5 %; White Blood Count 8.5 K/mcL (4.3-11.1)
[2019-01-13 05:07] LABS: Neutrophils # 6.8 K/mcL (1.6-8.9)
[2019-01-13 05:14] LABS: VBG Ionized Calcium 1.24 mmol/L (1.15-1.35)
[2019-01-13 05:24] LABS: Phosphorous 1.1 mg/dL (2.7-4.5); Potassium 3.6 mEq/L (3.5-5.1)
[2019-01-13 05:28] LABS: Platelet Estimate Normal (Normal)
[2019-01-13 05:29] LABS: Anisocytosis 1+ (Not Present); Hypochromasia Present (Not Present); Large Platelets Present (Not Present); Macrocytosis Present (Not Present)
[2019-01-13] MEDS ORDERED: Potassium Chloride Elixir 20 MEQ/15 ML UDC PO ONE (05:59)
[2019-01-13] MEDS: Cefepime HCl 2,000 MG in Water for inj. (sterile) 20 ML IVP SCH (06:04)
--- NOTE | 2019-01-13 07:07 | Pulmonology Progress Note ---
<Fabio Domingo - Last Filed: 01/13/19 18:17> Date of Encounter: 01/13/19 Time of Encounter: 07:07 Assessment and Plan (1) Sepsis Current Visit: Yes Status: Acute Patient was admitted with pain at ostomy site, likely secondary to ischemia from stricture He was taken for massive intra-abdominal surgery consisting of lysis adhesions/cholectomy/small bowel resection He was transferred to the ICU due to anticipation of infection and sepsis secondary to unavoidable surgical contamination He is no longer requiring norepinephrine and is otherwise hemodynamically stable Continue cefepime and Flagyl for intestinal haroon coverage Other supportive care as necessary Qualifiers: Sepsis type: sepsis due to unspecified organism Qualified Code(s): A41.9 - Sepsis, unspecified organism (2) Status post colon resection Current Visit: Yes Status: Acute (3) Diabetes Current Visit: Yes Status: Acute Patient is chronic diabetic Patient is receiving total parenteral nutrition Insulin drip due to continued elevated glucose Sugars improved today with insulin drip Qualifiers: Diabetes mellitus type: type 2 Diabetes mellitus senior living insulin use: without 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 Diabetes mellitus complication status: without complication Qualified Code(s): E11.9 - Type 2 diabetes mellitus without complications (4) Atrial fibrillation Current Visit: Yes Status: Chronic History of atrial fibrillation, RVR overnight, currently on amiodarone drip and controlled Qualifiers: Atrial fibrillation type: paroxysmal Qualified Code(s): I48.0 - Paroxysmal atrial fibrillation (5) Glaucoma Current Visit: No Status: Chronic History of glaucoma, continuing home eyedrop medications Qualifiers: Glaucoma type: unspecified Laterality: bilateral Qualified Code(s): H40.9 - Unspecified glaucoma (6) TONO (acute kidney injury) Current Visit: Yes Status: Acute Acute kidney injury likely secondary to prerenal from sepsis and hypotension Creatinine improved today from 1.9 yesterday to 1.5 today We will continue to monitor urine output and creatinine and electrolytes Subjective Principal diagnosis: Postop colectomy and colostomy Interval history: No acute events today, patient is comfortable and in no acute distress. Objective PUL Vital signs: Last Vital Signs Temp 98.3 F 01/13/19 04:12 Pulse 97 01/13/19 06:00 Resp 24 01/13/19 06:00 BP 150/64 01/13/19 06:00 Pulse Ox 94 01/13/19 06:00 General appearance: no acute distress Eyes: nonicteric ENT: oropharynx dry Effort: normal Auscultation: bilateral: clear Cardiovascular: other (Tachycardic rate, irregularly irregular rhythm) Gastrointestinal: absent bowel sounds, soft, tender Integumentary: normal Extremities: no cyanosis, no edema, pink and warm, pulses normal Musculoskeletal: no deformities normal mental status (Patient alert and oriented however he does have periods of delirium, involving trying to remove bandaging) Results - Laboratory Findings CBC and BMP: 01/13/19 04:00 01/13/19 04:00 PT/INR, D-dimer PT 12.7 Seconds (9.4-12.1) H 01/08/19 06:27 Abnormal lab findings: Abnormal lab results WBC 11.3 K/mcL (4.3-11.1) H 01/08/19 06:27 RBC 3.20 M/mcL (4.19-5.50) L 01/13/19 04:00 Hgb 9.1 g/dL (12.9-16.9) L 01/13/19 04:00 Hct 28.0 % (37.5-50.1) L 01/13/19 04:00 MCH 27.8 pg (28.0-33.3) L 01/09/19 03:58 MCHC 30.7 g/dL (31.6-35.5) L 01/09/19 03:58 RDW 16.8 % (11.5-14.5) H 01/13/19 04:00 34.0 % (0-4) H 01/10/19 04:15 2.0 % (0) H 01/10/19 04:15 0.5 K/mcL (0.6-4.6) L 01/11/19 03:45 Nucleated RBCs/100 WBC 1.1 /100 WBC (0) H 01/13/19 04:00 Present (Not Present) A 01/13/19 04:00 Present (Not Present) A 01/13/19 04:00 1+ (Not Present) A 01/13/19 04:00 Present (Not Present) A 01/13/19 04:00 1+ (Not Present) A 01/11/19 03:45 1+ (Not Present) A 01/11/19 03:45 PT 12.7 Seconds (9.4-12.1) H 01/08/19 06:27 APTT 46.9 Seconds (26.0-36.0) H 01/08/19 06:27 Sodium 134 mEq/L (136-145) L 01/13/19 04:00 Chloride 109 mEq/L (98-107) H 01/13/19 04:00 Carbon Dioxide 21 mEq/L (23-29) L 01/13/19 04:00 BUN 42 mg/dL (8-23) H 01/13/19 04:00 1.54 mg/dL (0.70-1.30) H 01/13/19 04:00 Est GFR ( Amer) 54 (> 60) L 01/13/19 04:00 Est GFR (Non-Af Amer) 44 (> 60) L 01/13/19 04:00 27 (6-26) H 01/13/19 04:00 Glucose 234 mg/dL (70-105) H 01/13/19 04:00 POC Glucose 146 mg/dL (70-99) H 01/13/19 03:13 6.2 % (-5.6) H 01/07/19 08:46 307 (280-300) H 01/12/19 04:30 Lactic Acid 2.4 mmol/L (0.5-2.2) H 01/10/19 00:14 Calcium 7.9 mg/dL (8.6-10.3) L 01/11/19 03:45 Venous Ioniz Calcium 1.08 mmol/L (1.15-1.35) L 01/11/19 04:14 Phosphorus 1.1 mg/dL (2.7-4.5) L 01/13/19 04:00 AST 9 Units/L (13-39) L 01/12/19 11:21 B-Natriuretic Peptide 300 pg/mL (Less than 100) H 01/09/19 15:18 4.4 g/dL (6.4-8.9) L 01/12/19 11:21 2.3 g/dL (3.5-5.7) L 01/12/19 11:21 2.1 g/dL (2.4-3.5) L 01/12/19 11:21 8.4 mg/dL (17.0-34.0) L 01/10/19 04:15 Triglycerides 179 mg/dL (< 150) H 01/10/19 04:15 6 Units/L (11-82) L 01/07/19 08:46 Cloudy (Clear) A 01/07/19 11:03 Ur Leukocyte Esterase Moderate (Negative) H 01/07/19 11:03 3-5 per hpf (0-3) H 01/07/19 11:03 50-100 per hpf (0-3) H 01/07/19 11:03 Ur Squamous Epith Cells Many per lpf (None-Few) H 01/07/19 11:03 Many per hpf (None-Few) H 01/07/19 11:03 Ur Culture Indicated? YES (NO) A 01/07/19 11:03 - Clinical Findings Intake & Output: Intake & Output 01/12/19 01/12/19 01/13/19 15:59 23:59 07:59 Intake Total 2496 / 5782.1 2670.2 / 5782.1 770.82 / 770.82 Output Total 605 / 1250 200 / 1250 625 / 625 Balance 1891 / 4532.1 2470.2 / 4532.1 145.82 / 145.82 Weight 91.8 kg Consult Discharge Plan - Plan Referrals: Ranjit Rodriguez MD [Primary Care Provider] - <Lucian Sherwood - Last Filed: 01/13/19 23:48> Date of Encounter: 01/13/19 Objective PUL Vital signs: Last Vital Signs Temp 98.4 F 01/13/19 12:49 Pulse 87 01/13/19 12:00 Resp 24 01/13/19 12:00 BP 145/69 01/13/19 12:00 Pulse Ox 95 01/13/19 12:00 Results - Laboratory Findings CBC and BMP: 01/13/19 04:00 01/13/19 19:55 PT/INR, D-dimer PT 12.7 Seconds (9.4-12.1) H 01/08/19 06:27 Abnormal lab findings: Abnormal lab results WBC 11.3 K/mcL (4.3-11.1) H 01/08/19 06:27 RBC 3.20 M/mcL (4.19-5.50) L 01/13/19 04:00 Hgb 9.1 g/dL (12.9-16.9) L 01/13/19 04:00 Hct 28.0 % (37.5-50.1) L 01/13/19 04:00 MCH 27.8 pg (28.0-33.3) L 01/09/19 03:58 MCHC 30.7 g/dL (31.6-35.5) L 01/09/19 03:58 RDW 16.8 % (11.5-14.5) H 01/13/19 04:00 34.0 % (0-4) H 01/10/19 04:15 2.0 % (0) H 01/10/19 04:15 0.5 K/mcL (0.6-4.6) L 01/11/19 03:45 Nucleated RBCs/100 WBC 1.1 /100 WBC (0) H 01/13/19 04:00 Present (Not Present) A 01/13/19 04:00 Present (Not Present) A 01/13/19 04:00 1+ (Not Present) A 01/13/19 04:00 Present (Not Present) A 01/13/19 04:00 1+ (Not Present) A 01/11/19 03:45 1+ (Not Present) A 01/11/19 03:45 PT 12.7 Seconds (9.4-12.1) H 01/08/19 06:27 APTT 46.9 Seconds (26.0-36.0) H 01/08/19 06:27 Sodium 134 mEq/L (136-145) L 01/13/19 04:00 Chloride 109 mEq/L (98-107) H 01/13/19 04:00 Carbon Dioxide 21 mEq/L (23-29) L 01/13/19 04:00 BUN 42 mg/dL (8-23) H 01/13/19 04:00 1.54 mg/dL (0.70-1.30) H 01/13/19 04:00 Est GFR ( Amer) 54 (> 60) L 01/13/19 04:00 Est GFR (Non-Af Amer) 44 (> 60) L 01/13/19 04:00 27 (6-26) H 01/13/19 04:00 Glucose 234 mg/dL (70-105) H 01/13/19 04:00 POC Glucose 146 mg/dL (70-99) H 01/13/19 03:13 6.2 % (-5.6) H 01/07/19 08:46 307 (280-300) H 01/12/19 04:30 Lactic Acid 2.4 mmol/L (0.5-2.2) H 01/10/19 00:14 Calcium 7.9 mg/dL (8.6-10.3) L 01/11/19 03:45 Venous Ioniz Calcium 1.08 mmol/L (1.15-1.35) L 01/11/19 04:14 Phosphorus 1.1 mg/dL (2.7-4.5) L 01/13/19 04:00 AST 9 Units/L (13-39) L 01/12/19 11:21 B-Natriuretic Peptide 300 pg/mL (Less than 100) H 01/09/19 15:18 4.4 g/dL (6.4-8.9) L 01/12/19 11:21 2.3 g/dL (3.5-5.7) L 01/12/19 11:21 2.1 g/dL (2.4-3.5) L 01/12/19 11:21 8.4 mg/dL (17.0-34.0) L 01/10/19 04:15 Triglycerides 179 mg/dL (< 150) H 01/10/19 04:15 6 Units/L (11-82) L 01/07/19 08:46 Cloudy (Clear) A 01/07/19 11:03 Ur Leukocyte Esterase Moderate (Negative) H 01/07/19 11:03 3-5 per hpf (0-3) H 01/07/19 11:03 50-100 per hpf (0-3) H 01/07/19 11:03 Ur Squamous Epith Cells Many per lpf (None-Few) H 01/07/19 11:03 Many per hpf (None-Few) H 01/07/19 11:03 Ur Culture Indicated? YES (NO) A 01/07/19 11:03 - Clinical Findings Intake & Output: Intake & Output 01/12/19 01/13/1919 23:59 07:59 15:59 Intake Total 2670.2 / 5782.1 770.82 / 1300.80 529.98 / 1300.80 Output Total 200 / 1250 625 / 1300 675 / 1300 Balance 2470.2 / 4532.1 145.82 / 0.80 -145.02 / 0.80 Weight 91.8 kg - Attending Attestation I examined this patient and my medical decision-making was reviewed with the Res located [facility]. I agree with the documented findings, disposition and treatment plan as described except to the extent set forth below. Patient seen and examined. Labs, radiology, chart personally reviewed. 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 Will focus on normalizing day and night time. Pulmonary: Acceptable oxygenation and ventilation and IS Cardiovascular: stable and continue to target rate control GI: Nutrition per dietary and GI prophylaxis per routine and surgery Heme: DVT prophylaxis per routine ID: Continue antibiotics and plan to de-escalation Renal; urine out put and renal function reviewed Endorcine: blood glucose is monitored and insulin for more tight control Lines: all lines checked and no evidence of infections Skin: skin care to prevent pressure ulcers per nursing routine care Dispo: Will keep patient in ICU, concern of his mental status can affect his care Code: Full. Prognosis.Guarded
[2019-01-13] MEDS: Dorzolamide/Timolol 1 DROP RIGHT EYE SCH ×2 (10:20→19:54)
--- NOTE | 2019-01-13 14:10 | AcuteCareSurgery Progress Note ---
<Rogelio Causey - Last Filed: 01/14/19 07:04> Date of Encounter: 01/13/19 Objective Vital Signs - Last 8 Hours Temp Pulse Resp BP Pulse Ox 01/14/19 06:00 93 27 142/64 95 01/14/19 05:00 93 25 139/60 95 01/14/19 04:42 98.8 F 01/14/19 04:00 92 23 129/68 96 01/14/19 03:00 91 27 133/65 95 01/14/19 02:00 98 25 139/68 95 01/14/19 01:00 98 25 95 01/14/19 00:18 100.5 F H 01/14/19 00:00 96 26 137/61 94 Intake and Output 01/13/19 01/13/19 01/14/19 15:59 23:59 07:59 Intake Total 829.98 / 2371.70 765.0 / 2371.70 786.7 / 786.7 Output Total 675 / 1500 200 / 1500 200 / 200 Balance 154.98 / 871.70 565.0 / 871.70 586.7 / 586.7 Intake: IV Fluids 829.98 / 2371.70 765.0 / 2371.70 786.7 / 786.7 Amiodarone Drip Premix 360mg/ 200 / 600 200 / 600 200mL 360 mg In 200 ml @ 0.5 MG /MIN 16.667 mls/hr IVC CONT [facility] Rx#:[id number] HumuLIN R 100 UNIT In 0.9 % 29.98 / 237.70 101.0 / 237.70 56.7 / 56.7 Sodium Chloride 100 ML @ 9 UNIT /HR 9.09 mls/hr IVC [facility] Rx #:[id number] Maxipime 2,000 MG In Water for 20 / 20 inj. (sterile) 20 ML @ 300 mls/ hr IVP Q24H [facility] Rx#:[id number] Ofirmev 1,000 mg/100 ml 1,000 100 / 200 100 / 100 mg In 100 ml @ 400 mls/hr IVPB Q6HR [facility] Rx#:[id number] Intralipid 20% 250 ML @ 21 mls/ 250 / 250 hr IVPB DAILY@1700 [facility] Rx#: [id number] Magnesium Sulfate 2 GM In 0.9 % 104 / 104 Sodium Chloride 100 ML @ 52 mls/hr IVPB Q6H [facility] Rx#: [id number] Flagyl Premix 500 MG/100 ML 500 100 / 300 100 / 300 100 / 100 mg In 100 ml @ 100 mls/hr IVPB Q8HR [facility] Rx#:[id number] Potassium Chloride 10 mEq/100mL 400 / 400 10 meq In 100 ml @ 100 mls/hr IVPB Q1H [facility] Rx#:[id number] Sodium Phosphate 30 MMOL In 0.9 260 / 260 260 / 260 % Sodium Chloride 250 ML @ 42 mls/hr IVPB ONCE ONE Rx#: [id number] Oral 0 / 0 0 / 0 Output: Catheter 350 / 825 150 / 825 200 / 200 Gastric Drainage 325 / 675 50 / 675 Other: Weight 92.2 kg Blood Glucose* 160 143 119 Patient Weight 01/14/19 23:59 Weight 92.2 kg - Labs 01/13/19 04:00 01/13/19 19:55 Diabetes panel 01/13/19 Range/Units 19:55 Sodium 130 L (136-145) mEq/L Potassium 4.5 (3.5-5.1) mEq/L Calcium panel 01/13/19 Range/Units 19:55 Phosphorus 3.5 (2.7-4.5) mg/dL Pituitary panel 01/13/19 Range/Units 19:55 Sodium 130 L (136-145) mEq/L Potassium 4.5 (3.5-5.1) mEq/L Adrenal panel 01/13/19 Range/Units 19:55 Sodium 130 L (136-145) mEq/L Potassium 4.5 (3.5-5.1) mEq/L Consult Discharge Plan - Plan Referrals: Ranjit Rodriguez MD [Primary Care Provider] - - Attending Attestation I examined this patient and my medical decision-making was reviewed with the Resident Physician. I agree with the documented findings, disposition and treatment plan as described except to the extent set forth below. Review the above assessment and evaluation and agree with the above plan. No recommended changing management at this time. Patient is somewhat confused and continues to be observed. On IV insulin as well as IV amiodarone. <Lu Calix - Last Filed: 01/14/19 11:55> Date of Encounter: 01/14/19 Time of Encounter: 09:45 - Assessment and Plan (1) Colon obstruction Current Visit: Yes Status: Acute Presents with stenosis of the orifice of his colostomy. Has been dilated twice in the past month, currently unable to fit tip of finger into ostomy. 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 Status post laparotomy with lysis of adhesions, unavoidable enterotomy, takedown colostomy, left colon resection, transverse colostomy, small bowel resection with primary anastomosis day 5 Continued to have episodes of delirium overnight Afebrile, no leukocytosis Antibiotic coverage day 6-cefepime, metronidazole TPN for nutrition G-tube with 625 mL No output in colostomy bag noted, some condensation present Bowel regimen-Colace Continue wound care Continue to monitor stool, urine, electrolytes to be repleted as necessary Incentive spirometry encouraged (2) Sepsis Current Visit: Yes Status: Acute Secondary to ischemic bowel Improved Management per primary Qualifiers: Sepsis type: sepsis due to unspecified organism Qualified Code(s): A41.9 - Sepsis, unspecified organism (3) Hypotension Current Visit: Yes Status: Resolved Resolved Secondary to sepsis due to ischemic bowel Qualifiers: Hypotension type: unspecified hypotension type Qualified Code(s): I95.9 - Hypotension, unspecified (4) Anemia Current Visit: Yes Status: Acute Hemoglobin has stabilized No signs of active bleeding Continue to monitor Management per primary Qualifiers: Anemia type: unspecified type Qualified Code(s): D64.9 - Anemia, unspecified (5) Atrial fibrillation Current Visit: Yes Status: Chronic Continue amiodarone Management per primary Qualifiers: Atrial fibrillation type: paroxysmal Qualified Code(s): I48.0 - Paroxysmal atrial fibrillation (6) TONO (acute kidney injury) Current Visit: Yes Status: Acute Improving Patient sustained TONO, secondary to hypotension, sepsis Renally dose medications and try to avoid nephrotoxic agents (7) T2DM (type 2 diabetes mellitus) Current Visit: Yes Status: Chronic Currently on TPN Insulin drip Qualifiers: Diabetes mellitus halfway insulin use: with intermediate card tender use Diabetes mellitus complication status: with hyperglycemia Qualified Code(s): E11.65 - Type 2 diabetes mellitus with hyperglycemia; Z79.4 - roasterman (current) use of insulin (8) DVT prophylaxis Current Visit: Yes Status: Acute SCDs Subjective Narrative: Patient seen and examined at bedside today. He continued to have delirious episodes overnight. On my exam, the patient is alert and oriented 2, answering questions appropriately. He continues to be off vasopressors, however he continues on amiodarone for A. fib and insulin drip was started for hyperglycemia yesterday. He states that he continues to have right lower quadrant pain. He denies fever, chills, chest pain, shortness of breath, pleuritic pain, dysuria, calf pain Objective Vital Signs - Last 8 Hours Temp Pulse Resp BP Pulse Ox 01/13/19 13:49 90 24 152/69 95 01/13/19 13:00 90 24 142/64 95 01/13/19 12:49 98.4 F 01/13/19 12:00 98.4 F 87 24 145/69 95 01/13/19 11:00 88 24 136/66 94 01/13/19 10:00 91 24 131/71 94 01/13/19 09:36 99.2 F 01/13/19 09:00 94 24 144/65 94 01/13/19 08:00 93 24 140/68 94 01/13/19 07:00 97 24 129/64 94 Intake and Output 01/12/19 01/13/19 01/13/19 23:59 07:59 15:59 Intake Total 2670.2 / 5782.1 770.82 / 1500.80 729.98 / 1500.80 Output Total 200 / 1250 625 / 1300 675 / 1300 Balance 2470.2 / 4532.1 145.82 / 200.80 54.98 / 200.80 Intake: IV Fluids 2670.2 / 5782.1 770.82 / 1500.80 729.98 / 1500.80 0.9 % Sodium Chloride 1,000 ML 0 / 0 @ 125 mls/hr IVC .Q8H [facility] Rx#: [id number] Amiodarone Drip Premix 360mg/ 200 / 400 200 / 400 200mL 360 mg In 200 ml @ 0.5 MG /MIN 16.667 mls/hr IVC CONT [facility] Rx#:[id number] HumuLIN R 100 UNIT In 0.9 % 156.2 / 188.1 100.82 / 130.80 29.98 / 130.80 Sodium Chloride 100 ML @ 9 UNIT /HR 9.09 mls/hr IVC CONT [facility] Rx #:[id number] Clinimix E 5%-15% SOLUTION , 2009 / 2009 000 ML @ 65 mls/hr IVC .Q24H [facility] with M.v.i. Adult 10 ml Rx# :[id number] Maxipime 2,000 MG In Water for 20 / 20 inj. (sterile) 20 ML @ 300 mls/ hr IVP Q24H [facility] Rx#:[id number] Ofirmev 1,000 mg/100 ml 1,000 100 / 200 100 / 200 100 / 200 mg In 100 ml @ 400 mls/hr IVPB Q6HR [facility] Rx#:[id number] Intralipid 20% 250 ML @ 21 mls/ 250 / 250 hr IVPB DAILY@1700 [facility] Rx#: [id number] Magnesium Sulfate 2 GM In 0.9 % 104 / 104 Sodium Chloride 100 ML @ 52 mls/hr IVPB Q6H PRN Rx#: [id number] Flagyl Premix 500 MG/100 ML 500 100 / 300 100 / 200 100 / 200 mg In 100 ml @ 100 mls/hr IVPB Q8HR [facility] Rx#:[id number] Potassium Chloride 10 mEq/100mL 200 / 300 300 / 300 10 meq In 100 ml @ 100 mls/hr IVPB Q1H PRN Rx#:[id number] Oral 0 / 0 0 / 0 Output: Stool 0 / 0 0 / 0 Catheter 200 / 1095 325 / 675 350 / 675 Gastric Drainage 0 / 155 300 / 625 325 / 625 Other: # Bowel Movements 0 Weight 91.8 kg Blood Glucose* 204 131 122 Patient Weight 01/13/19 23:59 Weight 91.8 kg - General physical appearance well developed, no distress (Mild pain), other (Continues to have pallor) - Eyes PERRL, normal ocular movement - ENT normal nares, normal mucosa, no hearing loss, no congestion - Neck Neck exam: no masses, trachea midline, no venous distension - Respiratory normal expansion, normal respiratory effort, clear to auscultation - Cardiovascular Cardiovascular exam: Present: RRR, no murmurs/rubs/gallops. Absent: JVD - Abdomen Abdomen: Present: bowel sounds present, soft, distended (Mildly), tender Abdominal Tenderness: RLQ - Incision Incision: Present: clean and dry, intact (No erythema, drainage. G-tube in place) - Integumentary no rash, other (Pale) - Neurologic CN 2-12 grossly intact, normal coordination, normal sensation - Musculoskeletal normal posture - Psychiatric oriented to person, speech is normal - Labs 01/14/19 10:25 01/14/19 09:10 Diabetes panel 01/12/19 01/13/19 Range/Units 11:21 04:00 Sodium 134 L (136-145) mEq/L Potassium 3.6 (3.5-5.1) mEq/L Chloride 109 H (98-107) mEq/L Carbon Dioxide 21 L (23-29) mEq/L BUN 42 H (8-23) mg/dL Creatinine 1.54 H (0.70-1.30) mg/dL Glucose 234 H (70-105) mg/dL Calcium 9.0 (8.6-10.3) mg/dL AST 9 L (13-39) Units/L ALT 13 (7-52) Units/L Alkaline Phosphatase 52 (34-104) Units/L Albumin 2.3 L (3.5-5.7) g/dL Calcium panel 01/12/19 01/13/19 Range/Units 11:21 04:00 Calcium 9.0 (8.6-10.3) mg/dL Phosphorus 1.1 L (2.7-4.5) mg/dL Albumin 2.3 L (3.5-5.7) g/dL Pituitary panel 01/13/19 Range/Units 04:00 Sodium 134 L (136-145) mEq/L Potassium 3.6 (3.5-5.1) mEq/L Chloride 109 H (98-107) mEq/L Carbon Dioxide 21 L (23-29) mEq/L BUN 42 H (8-23) mg/dL Creatinine 1.54 H (0.70-1.30) mg/dL Glucose 234 H (70-105) mg/dL Calcium 9.0 (8.6-10.3) mg/dL Adrenal panel 01/12/19 01/13/19 Range/Units 11:21 04:00 Sodium 134 L (136-145) mEq/L Potassium 3.6 (3.5-5.1) mEq/L Chloride 109 H (98-107) mEq/L Carbon Dioxide 21 L (23-29) mEq/L BUN 42 H (8-23) mg/dL Creatinine 1.54 H (0.70-1.30) mg/dL Glucose 234 H (70-105) mg/dL Calcium 9.0 (8.6-10.3) mg/dL Total Bilirubin 0.6 (0.3-1.0) mg/dL AST 9 L (13-39) Units/L ALT 13 (7-52) Units/L Alkaline Phosphatase 52 (34-104) Units/L Albumin 2.3 L (3.5-5.7) g/dL
[2019-01-13] MEDS ORDERED: Clinimix E 5%-15% SOLUTION 2,000 ML with MVI, adult with vitamin K 10 ML IVC SCH (17:00)
[2019-01-13] MEDS: Norepinephrine 4 MG in D5% in Water 250 ML IVC SCH (19:54)
[2019-01-13] MEDS: Latanoprost 2.5 ML BOTTLE RIGHT EYE SCH (19:54)
[2019-01-13 20:12] LABS: VBG Ionized Calcium 1.22 mmol/L (1.15-1.35)
[2019-01-13 20:37] LABS: Magnesium 1.9 mg/dL (1.6-2.6); Phosphorous 3.5 mg/dL (2.7-4.5); Potassium 4.5 mEq/L (3.5-5.1)
[2019-01-14] MEDS: Acetaminophen IV 1,000 MG/100 ML INFUS..BTL IVPB SCH ×5 (00:51→17:22)
[2019-01-14] MEDS: MetroNIDAZOLE 500 MG/100 ML 500 MG/100 ML BAG IVPB SCH ×3 (03:06→17:10)
[2019-01-14] MEDS: Cefepime HCl 2,000 MG in Water for inj. (sterile) 20 ML IVP SCH (04:37)
[2019-01-14] MEDS: Dorzolamide/Timolol 1 DROP RIGHT EYE SCH ×2 (08:48→21:37)
--- NOTE | 2019-01-14 09:07 | Pulmonology Progress Note ---
<Fabio Domingo - Last Filed: 01/14/19 13:10> Date of Encounter: 01/14/19 Time of Encounter: 09:07 Assessment and Plan (1) Sepsis Current Visit: Yes Status: Acute Patient was admitted with pain at ostomy site, likely secondary to ischemia from stricture He was taken for massive intra-abdominal surgery consisting of lysis adhesions/cholectomy/small bowel resection He was transferred to the ICU due to anticipation of infection and sepsis secondary to unavoidable surgical contamination He is no longer requiring norepinephrine and is otherwise hemodynamically stable Continue cefepime and Flagyl for intestinal haroon coverage Other supportive care as necessary Patient stable for transfer to floor Qualifiers: Sepsis type: sepsis due to unspecified organism Qualified Code(s): A41.9 - Sepsis, unspecified organism (2) Status post colon resection Current Visit: Yes Status: Acute (3) Diabetes Current Visit: Yes Status: Acute Patient is chronic diabetic Patient is receiving total parenteral nutrition Insulin drip due to continued elevated glucose Insulin drip discontinued, switched to Levemir 20 twice a day and high-dose sliding scale Qualifiers: Diabetes mellitus type: type 2 Diabetes mellitus shelter insulin use: without bed bug exterminator use Diabetes mellitus complication status: without complication Qualified Code(s): E11.9 - Type 2 diabetes mellitus without complications (4) Atrial fibrillation Current Visit: Yes Status: Chronic History of atrial fibrillation, patient was on amiodarone drip for RVR Amiodarone drip discontinued, rate controlled Qualifiers: Atrial fibrillation type: paroxysmal Qualified Code(s): I48.0 - Paroxysmal atrial fibrillation (5) Glaucoma Current Visit: No Status: Chronic History of glaucoma, continuing home eyedrop medications Qualifiers: Glaucoma type: unspecified Laterality: bilateral Qualified Code(s): H40.9 - Unspecified glaucoma (6) TONO (acute kidney injury) Current Visit: Yes Status: Acute Acute kidney injury likely secondary to prerenal from sepsis and hypotension Creatinine improved today from 1.5 yesterday to 1.3 today We will continue to monitor urine output and creatinine and electrolytes Subjective Principal diagnosis: Postop colectomy and colostomy Interval history: No acute events today, patient is comfortable and in no acute distress. Plan discontinue drips and transferred to [facility]. Objective PUL Vital signs: Last Vital Signs Temp 98.8 F 01/14/19 08:41 Pulse 93 01/14/19 08:00 Resp 25 01/14/19 08:00 BP 152/67 01/14/19 08:00 Pulse Ox 95 01/14/19 08:00 General appearance: no acute distress, asleep Eyes: nonicteric ENT: oropharynx dry Neck: supple Effort: normal Auscultation: bilateral: clear Cardiovascular: regular rate and rhythm Gastrointestinal: absent bowel sounds, soft, tender, non-distended Integumentary: normal Extremities: no cyanosis, no edema, pink and warm, pulses normal Musculoskeletal: no deformities normal mental status, non-focal exam Results - Laboratory Findings CBC and BMP: 01/14/19 10:25 01/14/19 09:10 PT/INR, D-dimer PT 12.7 Seconds (9.4-12.1) H 01/08/19 06:27 Abnormal lab findings: Abnormal lab results WBC 11.3 K/mcL (4.3-11.1) H 01/08/19 06:27 RBC 3.20 M/mcL (4.19-5.50) L 01/13/19 04:00 Hgb 9.1 g/dL (12.9-16.9) L 01/13/19 04:00 Hct 28.0 % (37.5-50.1) L 01/13/19 04:00 MCH 27.8 pg (28.0-33.3) L 01/09/19 03:58 MCHC 30.7 g/dL (31.6-35.5) L 01/09/19 03:58 RDW 16.8 % (11.5-14.5) H 01/13/19 04:00 34.0 % (0-4) H 01/10/19 04:15 2.0 % (0) H 01/10/19 04:15 0.5 K/mcL (0.6-4.6) L 01/11/19 03:45 Nucleated RBCs/100 WBC 1.1 /100 WBC (0) H 01/13/19 04:00 Present (Not Present) A 01/13/19 04:00 Present (Not Present) A 01/13/19 04:00 1+ (Not Present) A 01/13/19 04:00 Present (Not Present) A 01/13/19 04:00 1+ (Not Present) A 01/11/19 03:45 1+ (Not Present) A 01/11/19 03:45 PT 12.7 Seconds (9.4-12.1) H 01/08/19 06:27 APTT 46.9 Seconds (26.0-36.0) H 01/08/19 06:27 Sodium 130 mEq/L (136-145) L 01/13/19 19:55 Chloride 109 mEq/L (98-107) H 01/13/19 04:00 Carbon Dioxide 21 mEq/L (23-29) L 01/13/19 04:00 BUN 42 mg/dL (8-23) H 01/13/19 04:00 1.54 mg/dL (0.70-1.30) H 01/13/19 04:00 Est GFR ( Amer) 54 (> 60) L 01/13/19 04:00 Est GFR (Non-Af Amer) 44 (> 60) L 01/13/19 04:00 27 (6-26) H 01/13/19 04:00 Glucose 234 mg/dL (70-105) H 01/13/19 04:00 POC Glucose 146 mg/dL (70-99) H 01/14/19 08:18 6.2 % (-5.6) H 01/07/19 08:46 307 (280-300) H 01/12/19 04:30 Lactic Acid 2.4 mmol/L (0.5-2.2) H 01/10/19 00:14 Calcium 7.9 mg/dL (8.6-10.3) L 01/11/19 03:45 Venous Ioniz Calcium 1.08 mmol/L (1.15-1.35) L 01/11/19 04:14 Phosphorus 1.1 mg/dL (2.7-4.5) L 01/13/19 04:00 AST 9 Units/L (13-39) L 01/12/19 11:21 B-Natriuretic Peptide 300 pg/mL (Less than 100) H 01/09/19 15:18 4.4 g/dL (6.4-8.9) L 01/12/19 11:21 2.3 g/dL (3.5-5.7) L 01/12/19 11:21 2.1 g/dL (2.4-3.5) L 01/12/19 11:21 8.4 mg/dL (17.0-34.0) L 01/10/19 04:15 Triglycerides 179 mg/dL (< 150) H 01/10/19 04:15 6 Units/L (11-82) L 01/07/19 08:46 Cloudy (Clear) A 01/07/19 11:03 Ur Leukocyte Esterase Moderate (Negative) H 01/07/19 11:03 3-5 per hpf (0-3) H 01/07/19 11:03 50-100 per hpf (0-3) H 01/07/19 11:03 Ur Squamous Epith Cells Many per lpf (None-Few) H 01/07/19 11:03 Many per hpf (None-Few) H 01/07/19 11:03 Ur Culture Indicated? YES (NO) A 01/07/19 11:03 - Clinical Findings Intake & Output: Intake & Output 01/13/19 01/14/19 01/14/19 23:59 07:59 15:59 Intake Total 765.0 / 2371.70 791.5 / 791.5 Output Total 200 / 1500 200 / 575 375 / 575 Balance 565.0 / 871.70 591.5 / 216.5 -375 / 216.5 Weight 92.2 kg Consult Discharge Plan - Plan Referrals: Rodriguez,Ranjit Weston MD [Primary Care Provider] - <Lucian Sherwood - Last Filed: 01/14/19 23:48> Date of Encounter: 01/14/19 Objective PUL Vital signs: Last Vital Signs Temp 98.8 F 01/14/19 08:41 Pulse 93 01/14/19 08:00 Resp 25 01/14/19 08:00 BP 152/67 01/14/19 08:00 Pulse Ox 95 01/14/19 08:00 Results - Laboratory Findings CBC and BMP: 01/14/19 17:30 01/14/19 14:52 PT/INR, D-dimer PT 12.7 Seconds (9.4-12.1) H 01/08/19 06:27 Abnormal lab findings: Abnormal lab results WBC 11.3 K/mcL (4.3-11.1) H 01/08/19 06:27 RBC 3.20 M/mcL (4.19-5.50) L 01/13/19 04:00 Hgb 9.1 g/dL (12.9-16.9) L 01/13/19 04:00 Hct 28.0 % (37.5-50.1) L 01/13/19 04:00 MCH 27.8 pg (28.0-33.3) L 01/09/19 03:58 MCHC 30.7 g/dL (31.6-35.5) L 01/09/19 03:58 RDW 16.8 % (11.5-14.5) H 01/13/19 04:00 34.0 % (0-4) H 01/10/19 04:15 2.0 % (0) H 01/10/19 04:15 0.5 K/mcL (0.6-4.6) L 01/11/19 03:45 Nucleated RBCs/100 WBC 1.1 /100 WBC (0) H 01/13/19 04:00 Present (Not Present) A 01/13/19 04:00 Present (Not Present) A 01/13/19 04:00 1+ (Not Present) A 01/13/19 04:00 Present (Not Present) A 01/13/19 04:00 1+ (Not Present) A 01/11/19 03:45 1+ (Not Present) A 01/11/19 03:45 PT 12.7 Seconds (9.4-12.1) H 01/08/19 06:27 APTT 46.9 Seconds (26.0-36.0) H 01/08/19 06:27 Sodium 130 mEq/L (136-145) L 01/13/19 19:55 Chloride 109 mEq/L (98-107) H 01/13/19 04:00 Carbon Dioxide 21 mEq/L (23-29) L 01/13/19 04:00 BUN 42 mg/dL (8-23) H 01/13/19 04:00 1.54 mg/dL (0.70-1.30) H 01/13/19 04:00 Est GFR ( Amer) 54 (> 60) L 01/13/19 04:00 Est GFR (Non-Af Amer) 44 (> 60) L 01/13/19 04:00 27 (6-26) H 01/13/19 04:00 Glucose 234 mg/dL (70-105) H 01/13/19 04:00 POC Glucose 255 mg/dL (70-99) H 01/14/19 09:12 6.2 % (-5.6) H 01/07/19 08:46 307 (280-300) H 01/12/19 04:30 Lactic Acid 2.4 mmol/L (0.5-2.2) H 01/10/19 00:14 Calcium 7.9 mg/dL (8.6-10.3) L 01/11/19 03:45 Venous Ioniz Calcium 1.08 mmol/L (1.15-1.35) L 01/11/19 04:14 Phosphorus 1.1 mg/dL (2.7-4.5) L 01/13/19 04:00 AST 9 Units/L (13-39) L 01/12/19 11:21 B-Natriuretic Peptide 300 pg/mL (Less than 100) H 01/09/19 15:18 4.4 g/dL (6.4-8.9) L 01/12/19 11:21 2.3 g/dL (3.5-5.7) L 01/12/19 11:21 2.1 g/dL (2.4-3.5) L 01/12/19 11:21 8.4 mg/dL (17.0-34.0) L 01/10/19 04:15 Triglycerides 179 mg/dL (< 150) H 01/10/19 04:15 6 Units/L (11-82) L 01/07/19 08:46 Cloudy (Clear) A 01/07/19 11:03 Ur Leukocyte Esterase Moderate (Negative) H 01/07/19 11:03 3-5 per hpf (0-3) H 01/07/19 11:03 50-100 per hpf (0-3) H 01/07/19 11:03 Ur Squamous Epith Cells Many per lpf (None-Few) H 01/07/19 11:03 Many per hpf (None-Few) H 01/07/19 11:03 Ur Culture Indicated? YES (NO) A 01/07/19 11:03 - Clinical Findings Intake & Output: Intake & Output 01/13/19 01/14/19 01/14/19 23:59 07:59 15:59 Intake Total 765.0 / 2371.70 791.5 / 791.5 Output Total 200 / 1500 200 / 575 375 / 575 Balance 565.0 / 871.70 591.5 / 216.5 -375 / 216.5 Weight 92.2 kg - Attending Attestation I examined this patient and my medical decision-making was reviewed with the Resident Physician. I agree with the documented findings, disposition and treatment plan as described except to the extent set forth below. Patient seen and examined. Labs, radiology, chart personally reviewed. 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 Patient is on Amiodarone and transition to oral when able to change. GI: Nutrition per dietary and GI prophylaxis per routine and surgery team is following up Heme: DVT prophylaxis per routine ID: Continue antibiotics and plan to de-escalation Renal; urine out put and renal function reviewed Endorcine: blood glucose is monitored Lines: all lines checked and no evidence of infections Skin: skin care to prevent pressure ulcers per nursing routine care Dispo: 2N Code: Full. Prognosis.Guarded
--- NOTE | 2019-01-14 09:52 | Event Note ---
<Fabio Domingo - Last Filed: 01/14/19 09:49> Date of Encounter: 01/14/19 Time of Encounter: 09:50 Patient was originally transferred to ICU after abdominal surgery in anticipation of sepsis complications due to unavoidable contamination during surgery. He has been clinically stable while in the ICU, requiring pressor support for short time, as well as amiodarone drip and insulin drip. His respiratory status has remained stable. He is now off insulin drip, off amiodarone drip, off pressor support and stable for transfer to [facility]. Please see progress note for details. <Lucian Sherwood - Last Filed: 01/14/19 22:56> Date of Encounter: 01/14/19 I examined this patient and my medical decision-making was reviewed with the Resident Physician. I agree with the documented findings, disposition and treatment plan as described except to the extent set forth above.
[2019-01-14] MEDS ORDERED: Insulin Human Regular 100 UNIT in 0.9 % Sodium Chloride 100 ML IVC SCH (10:00)
[2019-01-14 10:17] LABS: BUN/Creatinine Ratio 34 (6-26); Blood Urea Nitrogen 45 mg/dL (8-23); Calcium 8.4 mg/dL (8.6-10.3); Carbon Dioxide 19 mEq/L (23-29); Chloride 98 mEq/L (98-107); Glucose 979 mg/dL (70-105); Magnesium 2.3 mg/dL (1.6-2.6); Osmolality,Calculated 326 (280-300); Potassium 5.4 mEq/L (3.5-5.1); Sodium 128 mEq/L (136-145); eGFR For African Americans > 60 (> 60); eGFR For Non-African Americans 52 (> 60)
[2019-01-14] MEDS: Insulin DETEMIR 100 UNIT/ML X5UNITS SQ SCH ×2 (10:35→21:53)
[2019-01-14 10:50] LABS: Hematocrit 28.8 % (37.5-50.1); Hemoglobin 9.3 g/dL (12.9-16.9); Mean Corpuscular HGB Conc 32.3 g/dL (31.6-35.5); Mean Corpuscular Hemoglobin 27.8 pg (28.0-33.3); Mean Platelet Volume 11.6 fL (9.4-12.4); Nucleated Red Blood Cells 1.6 /100 WBC (0); Platelet Count 167 K/mcL (140-400); Red Blood Count 3.34 M/mcL (4.19-5.50); Red Cell Distribution Width 17.5 % (11.5-14.5); White Blood Count 9.6 K/mcL (4.3-11.1)
[2019-01-14 10:56] LABS: Mean Corpuscular Volume 86.2 fL (83.0-100.0)
[2019-01-14 11:45] LABS: Monocytes # 0.4 K/mcL (0.0-1.3); Neutrophils # 8.3 K/mcL (1.6-8.9); Platelet Estimate Normal (Normal)
--- NOTE | 2019-01-14 11:56 | AcuteCareSurgery Progress Note ---
<Rgoelio Causey - Last Filed: 01/14/19 16:34> Date of Encounter: 01/14/19 Objective Vital Signs - Last 8 Hours Temp Pulse Resp BP Pulse Ox 01/14/19 15:58 99.3 F 01/14/19 14:00 99 28 95 01/14/19 12:13 99.6 F 01/14/19 12:00 99.6 F 97 26 152/64 95 01/14/19 11:00 96 24 137/71 95 01/14/19 10:00 95 26 143/59 95 01/14/19 09:00 89 20 154/64 96 01/14/19 08:41 98.8 F Intake and Output 01/14/19 01/14/19 01/14/19 07:59 15:59 23:59 Intake Total 791.5 / 905.5 114 / 905.5 Output Total 200 / 1025 825 / 1025 Balance 591.5 / -119.5 -711 / -119.5 Intake: IV Fluids 791.5 / 905.5 114 / 905.5 HumuLIN R 100 UNIT In 0.9 % 61.5 / 75.5 14 / 75.5 Sodium Chloride 100 ML @ 9 UNIT /HR 9.09 mls/hr IVC CONT [facility] Rx #:[id number] Maxipime 2,000 MG In Water for 20 / 20 inj. (sterile) 20 ML @ 300 mls/ hr IVP Q24H [facility] Rx#:[id number] Ofirmev 1,000 mg/100 ml 1,000 100 / 200 100 / 200 mg In 100 ml @ 400 mls/hr IVPB Q6HR [facility] Rx#:[id number] Intralipid 20% 250 ML @ 21 mls/ 250 / 250 hr IVPB DAILY@1700 [facility] Rx#: [id number] Flagyl Premix 500 MG/100 ML 500 100 / 100 mg In 100 ml @ 100 mls/hr IVPB Q8HR [facility] Rx#:[id number] Sodium Phosphate 30 MMOL In 0.9 260 / 260 % Sodium Chloride 250 ML @ 42 mls/hr IVPB ONCE ONE Rx#: [id number] Oral 0 / 0 Output: Catheter 200 / 675 475 / 675 Gastric Drainage 350 / 350 Other: Weight 92.2 kg Blood Glucose* 109 98 Patient Weight 01/14/19 23:59 Weight 92.2 kg - Labs 01/14/19 10:25 01/14/19 14:52 Diabetes panel 01/13/19 01/14/19 01/14/19 Range/Units 19:55 09:10 14:52 Sodium 130 L 128 L 136 (136-145) mEq/L Potassium 4.5 5.4 H 4.4 (3.5-5.1) mEq/L Chloride 98 108 H (98-107) mEq/L Carbon Dioxide 19 L 17 L (23-29) mEq/L BUN 45 H 51 H (8-23) mg/dL Creatinine 1.34 H 1.43 H (0.70-1.30) mg/dL Glucose 979 H* 239 H (70-105) mg/dL Calcium 8.4 L 8.6 (8.6-10.3) mg/dL Calcium panel 01/13/19 01/14/19 01/14/19 Range/Units 19:55 09:10 14:52 Calcium 8.4 L 8.6 (8.6-10.3) mg/dL Phosphorus 3.5 6.0 H (2.7-4.5) mg/dL Pituitary panel 01/13/19 01/14/19 01/14/19 Range/Units 19:55 09:10 14:52 Sodium 130 L 128 L 136 (136-145) mEq/L Potassium 4.5 5.4 H 4.4 (3.5-5.1) mEq/L Chloride 98 108 H (98-107) mEq/L Carbon Dioxide 19 L 17 L (23-29) mEq/L BUN 45 H 51 H (8-23) mg/dL Creatinine 1.34 H 1.43 H (0.70-1.30) mg/dL Glucose 979 H* 239 H (70-105) mg/dL Calcium 8.4 L 8.6 (8.6-10.3) mg/dL Adrenal panel 01/13/19 01/14/19 01/14/19 Range/Units 19:55 09:10 14:52 Sodium 130 L 128 L 136 (136-145) mEq/L Potassium 4.5 5.4 H 4.4 (3.5-5.1) mEq/L Chloride 98 108 H (98-107) mEq/L Carbon Dioxide 19 L 17 L (23-29) mEq/L BUN 45 H 51 H (8-23) mg/dL Creatinine 1.34 H 1.43 H (0.70-1.30) mg/dL Glucose 979 H* 239 H (70-105) mg/dL Calcium 8.4 L 8.6 (8.6-10.3) mg/dL Consult Discharge Plan - Plan Referrals: Ranjit Rodriguez MD [Primary Care Provider] - - Attending Attestation I examined this patient and my medical decision-making was reviewed with the Resident Physician. I agree with the documented findings, disposition and treatment plan as described except to the extent set forth below. I reviewed the above assessment and evaluation with the resident and agree with the above plan. Patient still somewhat confused. No output out of the ostomy but there is some air and condensation present. No nausea or vomiting. On TPN. Continue with IV antibiotics and continue to await return of bowel function. <Lu Calix - Last Filed: 01/15/19 10:00> Date of Encounter: 01/15/19 Time of Encounter: 11:56 - Assessment and Plan (1) Colon obstruction Current Visit: Yes Status: Acute Presents with stenosis of the orifice of his colostomy. Has been dilated twice in the past month, currently unable to fit tip of finger into ostomy. 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 Status post laparotomy with lysis of adhesions, unavoidable enterotomy, takedown colostomy, left colon resection, transverse colostomy, small bowel resection with primary anastomosis day 6 Intermittently delirious Febrile overnight, max temp 100.5 Antibiotic coverage day 7-cefepime, metronidazole TPN for nutrition Ice chips every 8 hours G-tube with 300 ml drainage No output in colostomy bag noted, some condensation present and slightly inflated Continue wound care, daily dressing changes Continue to monitor for stool, urine output, electrolytes to be repleted as nec essary Incentive spirometry encouraged (2) Sepsis Current Visit: Yes Status: Acute Secondary to ischemic bowel Improved Management per primary Qualifiers: Sepsis type: sepsis due to unspecified organism Qualified Code(s): A41.9 - Sepsis, unspecified organism (3) Hypotension Current Visit: Yes Status: Resolved Resolved Secondary to sepsis due to ischemic bowel Qualifiers: Hypotension type: unspecified hypotension type Qualified Code(s): I95.9 - Hypotension, unspecified (4) Anemia Current Visit: Yes Status: Acute Hemoglobin has stabilized No signs of active bleeding Management per primary Qualifiers: Anemia type: unspecified type Qualified Code(s): D64.9 - Anemia, unspecified (5) Atrial fibrillation Current Visit: Yes Status: Chronic Continue amiodarone by mouth Management per primary Qualifiers: Atrial fibrillation type: paroxysmal Qualified Code(s): I48.0 - Paroxysmal atrial fibrillation (6) TONO (acute kidney injury) Current Visit: Yes Status: Acute Continues to improve Patient sustained TONO, secondary to hypotension, sepsis Renally dose medications and try to avoid nephrotoxic agents (7) T2DM (type 2 diabetes mellitus) Current Visit: Yes Status: Chronic Currently on TPN Insulin drip discontinued Currently on basal and sliding scale insulin Management per primary Qualifiers: Diabetes mellitus fci insulin use: with fci use Diabetes mellitus complication status: with hyperglycemia Qualified Code(s): E11.65 - Type 2 diabetes mellitus with hyperglycemia; 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 He remains intermittently delirious. He also continues to have right lower quadrant pain. He denies fever, chills, nausea, vomiting, chest pain, shortness breath, dysuria. He does not yet have output in colostomy however, sensation is present and that slowly filling with air. Objective Vital Signs - Last 8 Hours Temp Pulse Resp BP Pulse Ox 01/14/19 11:00 96 24 137/71 95 01/14/19 10:00 95 26 143/59 95 01/14/19 09:00 89 20 154/64 96 01/14/19 08:41 98.8 F 01/14/19 08:00 98.8 F 86 20 152/67 95 01/14/19 07:00 92 24 146/66 96 01/14/19 06:00 93 27 142/64 95 01/14/19 05:00 93 25 139/60 95 01/14/19 04:42 98.8 F 01/14/19 04:00 92 23 129/68 96 Intake and Output 01/13/19 01/14/19 01/14/19 23:59 07:59 15:59 Intake Total 765.0 / 2371.70 791.5 / 805.5 14 / 805.5 Output Total 200 / 1500 200 / 575 375 / 575 Balance 565.0 / 871.70 591.5 / 230.5 -361 / 230.5 Intake: IV Fluids 765.0 / 2371.70 791.5 / 805.5 14 / 805.5 Amiodarone Drip Premix 360mg/ 200 / 600 200mL 360 mg In 200 ml @ 0.5 MG /MIN 16.667 mls/hr IVC CONT [facility] Rx#:[id number] HumuLIN R 100 UNIT In 0.9 % 101.0 / 237.70 61.5 / 75.5 14 / 75.5 Sodium Chloride 100 ML @ 9 UNIT /HR 9.09 mls/hr IVC CONT [facility] Rx #:[id number] Maxipime 2,000 MG In Water for 20 / 20 inj. (sterile) 20 ML @ 300 mls/ hr IVP Q24H [facility] Rx#:[id number] Ofirmev 1,000 mg/100 ml 1,000 100 / 100 mg In 100 ml @ 400 mls/hr IVPB Q6HR [facility] Rx#:[id number] Intralipid 20% 250 ML @ 21 mls/ 250 / 250 hr IVPB DAILY@1700 [facility] Rx#: [id number] Magnesium Sulfate 2 GM In 0.9 % 104 / 104 Sodium Chloride 100 ML @ 52 mls/hr IVPB Q6H [facility] Rx#: [id number] Flagyl Premix 500 MG/100 ML 500 100 / 300 100 / 100 mg In 100 ml @ 100 mls/hr IVPB Q8HR [facility] Rx#:[id number] Sodium Phosphate 30 MMOL In 0.9 260 / 260 260 / 260 % Sodium Chloride 250 ML @ 42 mls/hr IVPB ONCE ONE Rx#: [id number] Oral 0 / 0 0 / 0 Output: Catheter 150 / 825 200 / 375 175 / 375 Gastric Drainage 50 / 675 200 / 200 Other: Weight 92.2 kg Blood Glucose* 143 109 98 Patient Weight 01/14/19 23:59 Weight 92.2 kg - General physical appearance well developed, moderate distress (Secondary to confusion, delirium) - Eyes PERRL, normal ocular movement - ENT normal nares, no hearing loss, no congestion, dry mucosa - Neck Neck exam: no masses, trachea midline, no venous distension - Respiratory normal expansion, normal respiratory effort, clear to percussion, clear to auscultation - Cardiovascular Cardiovascular exam: Present: RRR, no murmurs/rubs/gallops. Absent: JVD - Abdomen Abdomen: Present: bowel sounds present (Hypoactive. Colostomy pink, well-perfused, some condensation on bag, bag slightly inflated.), soft, tender Abdominal Tenderness: RLQ - Incision Incision: Present: clean and dry, intact. Absent: erythema, indurated - Integumentary no rash, no growths, no abnormal pigmentation - Neurologic normal coordination, normal sensation - Musculoskeletal normal posture - Psychiatric oriented to person, oriented to place, other (Intermittently delirious) - Labs 01/15/19 01:29 01/15/19 01:29 Diabetes panel 01/13/19 01/14/19 Range/Units 19:55 09:10 Sodium 130 L 128 L (136-145) mEq/L Potassium 4.5 5.4 H (3.5-5.1) mEq/L Chloride 98 (98-107) mEq/L Carbon Dioxide 19 L (23-29) mEq/L BUN 45 H (8-23) mg/dL Creatinine 1.34 H (0.70-1.30) mg/dL Glucose 979 H* (70-105) mg/dL Calcium 8.4 L (8.6-10.3) mg/dL Calcium panel 01/13/19 01/14/19 Range/Units 19:55 09:10 Calcium 8.4 L (8.6-10.3) mg/dL Phosphorus 3.5 6.0 H (2.7-4.5) mg/dL Pituitary panel 01/13/19 01/14/19 Range/Units 19:55 09:10 Sodium 130 L 128 L (136-145) mEq/L Potassium 4.5 5.4 H (3.5-5.1) mEq/L Chloride 98 (98-107) mEq/L Carbon Dioxide 19 L (23-29) mEq/L BUN 45 H (8-23) mg/dL Creatinine 1.34 H (0.70-1.30) mg/dL Glucose 979 H* (70-105) mg/dL Calcium 8.4 L (8.6-10.3) mg/dL Adrenal panel 01/13/19 01/14/19 Range/Units 19:55 09:10 Sodium 130 L 128 L (136-145) mEq/L Potassium 4.5 5.4 H (3.5-5.1) mEq/L Chloride 98 (98-107) mEq/L Carbon Dioxide 19 L (23-29) mEq/L BUN 45 H (8-23) mg/dL Creatinine 1.34 H (0.70-1.30) mg/dL Glucose 979 H* (70-105) mg/dL Calcium 8.4 L (8.6-10.3) mg/dL
[2019-01-14 15:21] LABS: Calcium 8.6 mg/dL (8.6-10.3); Potassium 4.4 mEq/L (3.5-5.1)
[2019-01-14] MEDS ORDERED: *HR* Heparin 5,000 UNIT/ML VIAL IVP ONE (16:44)
[2019-01-14] MEDS ORDERED: *HR* Heparin 5,000 UNIT/ML VIAL IVP PRN ×2 (16:44)
[2019-01-14] MEDS ORDERED: *HR* Metoprolol 5 MG/5 ML VIAL IVP ONE (16:49)
[2019-01-14 16:50] LABS: Troponin I < 0.03 ng/mL (< 0.04)
[2019-01-14] MEDS: Norepinephrine 4 MG in D5% in Water 250 ML IVC SCH (16:54)
[2019-01-14] MEDS ORDERED: Clinimix E 5%-15% SOLUTION 2,000 ML with MVI, adult with vitamin K 10 ML IVC SCH (17:00)
[2019-01-14] MEDS: Heparin 25,000 UNIT/250 ML D5W 25,000 UNIT/250 ML IV.SOLN IVC SCH (17:10)
[2019-01-14] MEDS: Insulin LISPRO 300 UNITS/3 ML VIAL SQ SCH ×2 (17:12→21:34)
[2019-01-14 17:41] LABS: Hematocrit 30.2 % (37.5-50.1); Hemoglobin 9.7 g/dL (12.9-16.9); Mean Corpuscular HGB Conc 32.1 g/dL (31.6-35.5); Mean Corpuscular Hemoglobin 27.7 pg (28.0-33.3); Mean Corpuscular Volume 86.3 fL (83.0-100.0); Mean Platelet Volume 11.9 fL (9.4-12.4); Platelet Count 182 K/mcL (140-400); Red Cell Distribution Width 17.7 % (11.5-14.5); White Blood Count 10.5 K/mcL (4.3-11.1)
[2019-01-14 17:50] LABS: INR 1.4; Prothrombin Time 15.5 Seconds (9.4-12.1)
[2019-01-14 17:54] LABS: Activated Partial Thrombo Time 23.2 Seconds (26.0-36.0)
--- NOTE | 2019-01-14 18:01 | Event Note ---
<Jose LBetyFabio C - Last Filed: 01/14/19 17:52> Date of Encounter: 01/14/19 Time of Encounter: 17:52 Nurse alerted me at approximately 16:15 to irregularity on the patient's rhythm strip. I checked on the patient he denied any chest pain or shortness of breath but he was somewhat diaphoretic and tachypneic. I ordered stat EKG and troponin. EKG demonstrated diffuse ST changes and irregular rhythm. I contacted Dr. Ireland who took a look at the EKG and recommended I get another, start heparin and aspirin and metoprolol, and contact Dr. Manzo. I did acquire multiple EKGs and a stat troponin and discussed case with Dr. Manzo. He also recommended heparin and aspirin, however due to the patient's recent bowel surg beau I contacted Dr. Causey. Surgery was adamant that the patient could not receive oral or rectal aspirin or Plavix. Because of this the patient was not a candidate for catheterization. We did immediately started the patient on a heparin bolus and drip and a 5 mg IV push of metoprolol. The patient's rate came down to the 80s, rhythm became more regular. However on repeat EKG he did still have diffuse ST elevations in 2, 3, aVF, V4 through V6. I also ordered stat echocardiogram. On reexamination the patient is still denying any chest pain or shortness of breath. We will acquire echocardiogram, serial troponins and EKGs and continue to monitor. <Lucian Sherwood - Last Filed: 01/14/19 22:55> Date of Encounter: 01/14/19 I examined this patient and my medical decision-making was reviewed with the Resident Physician. I agree with the documented findings, disposition and treatment plan as described except to the extent set forth above.
[2019-01-14] MEDS ORDERED: *HR* Metoprolol 5 MG/5 ML VIAL IVP PRN (18:02)
--- NOTE | 2019-01-14 18:06 | Event Note ---
Date of Encounter: 01/14/19 Time of Encounter: 16:30 - Cardiology Event Note S: Called regarding new ECG changes. Reason for ECG: ST abn on tele, dyspnea. 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 B: Complex abd surgery 6 days ago including colon resection, PAF PPM CAD BP ok A: suspected ACS need surgery input for antiplatelet R: repeat ECG stat, cycle trop lopressor 5mg iv start heparin drip check with surgery re ASA and plavix s/p recent surgery inform Dr Manzo interventional cardiology regarding LHC TTE
[2019-01-14 19:31] LABS: Magnesium 2.1 mg/dL (1.6-2.6); Phosphorous 3.4 mg/dL (2.7-4.5)
[2019-01-14] MEDS ORDERED: Perflutren Lipid Microsphere 1.3 ML in 0.9 % Sodium Chloride 8.7 ML IVP ONE (19:53)
[2019-01-14] MEDS: Latanoprost 2.5 ML BOTTLE RIGHT EYE SCH (21:36)
[2019-01-15] MEDS: Acetaminophen IV 1,000 MG/100 ML INFUS..BTL IVPB SCH ×5 (00:45→23:00)
[2019-01-15] MEDS: Insulin LISPRO 300 UNITS/3 ML VIAL SQ SCH ×7 (00:46→23:01)
[2019-01-15] MEDS: MetroNIDAZOLE 500 MG/100 ML 500 MG/100 ML BAG IVPB SCH ×4 (00:46→23:00)
[2019-01-15 01:49] LABS: Hematocrit 29.4 % (37.5-50.1); Hemoglobin 9.3 g/dL (12.9-16.9); Mean Corpuscular HGB Conc 31.6 g/dL (31.6-35.5); Mean Corpuscular Hemoglobin 27.8 pg (28.0-33.3); Mean Platelet Volume 11.8 fL (9.4-12.4); Nucleated Red Blood Cells 1.2 /100 WBC (0); Platelet Count 178 K/mcL (140-400); Red Blood Count 3.34 M/mcL (4.19-5.50); Red Cell Distribution Width 18.1 % (11.5-14.5); White Blood Count 11.5 K/mcL (4.3-11.1)
[2019-01-15 02:03] LABS: Calcium 8.5 mg/dL (8.6-10.3); Potassium 4.2 mEq/L (3.5-5.1)
[2019-01-15 02:23] LABS: Lymphocytes # 1.4 K/mcL (0.6-4.6); Monocytes # 0.2 K/mcL (0.0-1.3); Neutrophils # 9.9 K/mcL (1.6-8.9)
[2019-01-15 02:24] LABS: Platelet Estimate Normal (Normal)
[2019-01-15] MEDS: Cefepime HCl 2,000 MG in Water for inj. (sterile) 20 ML IVP SCH ×2 (04:55→18:12)
--- NOTE | 2019-01-15 07:43 | Internal Med Progress Note ---
Hospitalist Progress Note - Encounter Date of Encounter: 01/15/19 Time of Encounter: 07:32 - Subjective Interval History: Patient was admitted for colostomy dysfunction. Patient underwent the surgery for stenosis of colostomy sites with colon obstruction. Patient had with lysis of the lesion, complicated by unavoidable enterotomy, takedown colostomy and left colon resection and small bowel resection with primary anastomosis gastrostomy tube on 01/08/19 and patient was subsequently transferred to ICU due to hypotension and required pressor support. Patient was continued on cefepime and Flagyl for sepsis. Patient also had TONO which is now improving. Patient was put on amiodarone drip for atrial fibrillation which is now changed to by mouth amiodarone . Overnight events with EKG changes noted. LHC was deferred. Cardiology was consulted. Patient feeling well and denying any new complaints. Denies any difficulty breathing or chest pain. - Exam Vitals: Temp Pulse Resp BP Pulse Ox 98.6 F 88 25 134/62 95 01/15/19 04:26 01/15/19 07:00 01/15/19 07:00 01/15/19 07:00 01/15/19 07:00 Exam: General: In no acute distress. Respiratory exam: CTAB. no accessory muscle use, rales, rhonchi, wheezes Cardiovascular exam: RRR, +S1, +S2. no murmur, gallop, rubs. GI/Abdominal exam: Has Rt sided ostomy, stoma is healthy, Non-distended, has gastrostomy tube, soft, no peritoneal signs. payton in place Extremities exam: no pedal edema, pulses palpable in b/l lower extremities. no calf tenderness Neurological exam: CN II-XII intact, AO X2, no focal deficits. Skin exam: No skin rash - Assessment and Plan (1) Acute on chronic renal insufficiency Current Visit: Yes Status: Acute (2) Atrial fibrillation Current Visit: Yes Status: Chronic (3) UTI (urinary tract infection) Current Visit: Yes Status: Ruled-out (4) T2DM (type 2 diabetes mellitus) Current Visit: Yes Status: Chronic (5) Colostomy dysfunction Current Visit: Yes Status: Acute (6) Pre-op evaluation Current Visit: Yes Status: Acute - Summary of Assessment and Plan Summary of Assessment and Plan: Assessment Acute S/p colon resection Colon obstruction Sepsis TONO abnormal EKG Chronic afib CKD CAD HTN DM rectal cacner Plan - s/p extensive surgery with lysis of adhesion, takedown colosctomy and lt colon resection, transverse colostomy, small bowel resection with primary anastomosis and gastrostomy tube placment on 01/08/19. - Now off pressors and ready to be transferred out of ICU. - c/w TPN per surgery. c/w cefepime and flagyl on day 8. Likely can be stopped with 10 day treatment if ok with surgery. urine and blood culture NGTD. - Had concern for EKG changes overnight with ST changes in inferior lead. Negative trops. Current on Heparin drip. Not candidate for antiplatets per surgery hence LHC was deferred. cardiology following - On amiodarone for afib. AC per cardiology - Renal function improved. c/w TPN. - EPCD for DVT prophylaxis. Internal Medicine: Result - Labs CBC & Chem 7: 01/15/19 01:29 01/15/19 01:29 Labs: Short CBC 01/14/19 01/14/19 01/15/19 Range/Units 10:25 17:30 01:29 WBC 9.6 10.5 11.5 H (4.3-11.1) K/mcL Hgb 9.3 L 9.7 L 9.3 L (12.9-16.9) g/dL Hct 28.8 L 30.2 L 29.4 L (37.5-50.1) % Plt Count 167 182 178 (140-400) K/mcL Neutrophils # 8.3 9.9 H (1.6-8.9) K/mcL BMP 01/14/19 01/14/19 01/15/19 09:10 14:52 01:29 Sodium 128 L 136 137 Potassium 5.4 H 4.4 4.2 Chloride 98 108 H 106 Carbon Dioxide 19 L 17 L 20 L BUN 45 H 51 H 55 H Creatinine 1.34 H 1.43 H 1.46 H Glucose 979 H* 239 H 251 H Calcium 8.4 L 8.6 8.5 L Cardiac Enzymes 01/14/19 01/14/19 01/15/19 Range/Units 16:18 20:45 01:29 Troponin I < 0.03 < 0.03 < 0.03 (< 0.04) ng/mL - ABG Interpretation ABG results: PT/INR, D-dimer PT 15.5 Seconds (9.4-12.1) H 01/14/19 17:30 - Impressions Impressions Echocardiogram 01/14/19 16:57 Impressions: LVEF 70-75%, hyperdynamic LV. Mild left ventricular diastolic dysfunction. Normal right ventricular structure and function. No significant valvular dysfunction. Unable to estimate RVSP due to lack of IVC visualization. RV-RA gradient 26 mmHg (in normal range). Left Ventricular Wall Motion: Rest Echo Findings The apex, apical inferior, mid inferior, basal inferior, apical anterior, mid anterior, basal anterior, apical septal, mid inferior septal, basal inferior septal, apical lateral, mid anterior lateral, basal anterior lateral, mid anterior septal, mid inferior lateral, basal anterior septal and basal inferior lateral miller were hyperkinetic. Findings: Study Quality * Technically adequate exam. ECG Findings * Normal sinus rhythm. Left Ventricle * LVEF 70-75%, hyperdynamic LV. * Normal LV chamber size, wall thickness and systolic function. * Mild left ventricular diastolic dysfunction. * Definity echo contrast was used. Right Ventricle * Normal right ventricular structure and function. Left Atrium * Normal left atrial size. Right Atrium * Normal right atrial size. Interatrial Septum * Interatrial septum not well evaluated. Aortic Valve * Aortic valve not well visualized. * No aortic stenosis. Mildly LVOT gradient 5 mmHg due to hyperdynamic LV. * No aortic regurgitation. Mitral Valve * Normal mitral valve structure. * No mitral stenosis. * Trace mitral regurgitation. Tricuspid Valve * Normal tricuspid valve structure. * No tricuspid stenosis. * Trace tricuspid regurgitation. * Unable to estimate RVSP due to lack of IVC visualization. RV-RA gradient 26 mmHg (in normal range). Pulmonic Valve * Pulmonic valve is not well visualized. * No pulmonic stenosis. * No pulmonic regurgitation. Aorta * Normally sized aortic root. Pericardium * The pericardium appears normal. IVC * The IVC is not well evaluated. Device lead * A device lead was visualized in the right atrium and right ventricle. Consult Discharge Plan - Plan Referrals: Ranjit Rodriguez MD [Primary Care Provider] - (2) Atrial fibrillation Qualifiers: Atrial fibrillation type: paroxysmal Qualified Code(s): I48.0 - Paroxysmal atrial fibrillation (3) UTI (urinary tract infection) Qualifiers: Urinary tract infection type: site unspecified Hematuria presence: without hematuria Qualified Code(s): N39.0 - Urinary tract infection, site not specified (4) T2DM (type 2 diabetes mellitus) Qualifiers: Diabetes mellitus care home insulin use: with lobsterman use Diabetes mellitus complication status: with hyperglycemia Qualified Code(s): E11.65 - Type 2 diabetes mellitus with hyperglycemia; Z79.4 - jail (current) use of insulin
--- NOTE | 2019-01-15 08:06 | Cardiology Consult Note ---
<Jaimee Bautista N - Last Filed: 01/15/19 10:42> Date of Encounter: 01/15/19 Time of Encounter: 08:06 Assessment and Plan (1) ST segment changes on electrocardiogram Current Visit: Yes Status: Acute ECG review shows diffuse ST changes; however, there are no serial or reciprocal changes present. Patient has had negative troponin x3. Echocardiogram performed on 01/14/2019 demonstrated the following: LVEF 70-75%. Hyperdynamic LV. Mild left ventricular diastolic dysfunction. Normal right ventricular structure and function. No significant valvular dysfunction. Unable to estimate RVSP due to lack of IVC visualization. RV-RA gradient 26 mmHg (in normal range). Patient denies any chest pain, palpitations, shortness of breath, or other symptoms concerning for acute ACS. Recommendations: - Low suspicion for ACS given negative troponins, lack of serial and reciprocal ECG changes, and preserved LVEF. Discontinue heparin gtt unless indicated for other reasons. (2) Atrial fibrillation Current Visit: Yes Status: Chronic History of atrial fibrillation. Patient noted to be in atrial fibrillation with rapid ventricular rate on 01/11/2019, prompting intiation of amiodarone gtt, which has since been discontinued. On exam today, patient denies any palpitations, chest pain, or shortness of breath. Review of multiple ECGs over the last ~24 hours demonstrates NSR. Recommendations: - Continue amiodarone 200mg PO. - Resume aspirin 325mg daily when able to tolerate. Per review of outpatient records, patient unable to tolerate full anticoagulation due to development of anemia. Qualifiers: Atrial fibrillation type: paroxysmal Qualified Code(s): I48.0 - Paroxysmal atrial fibrillation Discussion w patient/family: The assessment and plan as outlined above was discussed with the patient and/or family members who expressed understanding and agreement. All questions were answered. Thank you for involving us in the care of your patient. Please call with any questions. History of Present Illness Consult date: 01/14/19 Requesting physician: Fabio Domingo Consult reason: ST changes on ECG History of present illness: Mr. Ventura is a 73 year old male with a history of CAD, atrial fibrillation, DM, CKD, and colonic obstruction day 7 s/p laparotomy with left colon resection and small bowel resection. Patient has had a complicated hospital course, including sepsis-related hypotension requiring pressor support. Patient also had development of atrial fibrillation with RVR on 01/11/2019, prompting initiation of amiodarone gtt, which was discontinued yesterday. Patient was not started on aspirin/plavix due to recent extensive abdominal surgery. Patient had development new arrhythmia yesterday afternoon; stat ECG was remarkable for diffuse ST changes and irregular rhythm. Upon evaluation, patient reportedly denied chest pain or shortness of breath, but was noted to be mildly diaphoretic and tachypneic. Patient was administered metoprolol, and was started on heparin gtt due to concern for ACS. Cardiology consult placed for recommendations regarding possible ACS. Past Med Surg Social Fam HX - Past Medical History Medical history: atrial fibrillation, cancer, coronary artery disease, diabetes, glaucoma, kidney stones, renal disease Additional medical history: rectal cancer, GI bleed r/t Xarelto. Psychiatric history: anxiety, depression - Past Surgical History Surgical History: pacemaker/AICD, other Additional surgical history: colon resection, hernia repair - 11/02/2017; eye sx., Pacer. - Social History Smoking Status: Never smoker Smokeless Tobacco Status: No Alcohol use: none Drug use: none - Family History Father Living Status: Hx Family Cardiac Disorders: Yes Mother Living Status: Medications and Allergies Ascorbic Acid [Vitamin C] 1,000 mg PO DAILY 12/31/15 [History] Metoprolol [Lopressor] 100 mg PO BID 12/31/15 [History] Multivitamin [One Daily Essential] 1 tab PO DAILY 12/31/15 [History] Brimonidine Tartrate/Timolol [Combigan 0.2%-0.5% Eye Drops] 1 drop RIGHT EYE BID 10/18/16 [History] Insulin DETEMIR [Levemir Flextouch] 12 unit SQ BID 11/09/16 [History] Amiodarone [Cordarone] 200 mg PO DAILY 08/04/17 [History] Zolpidem [Ambien] 10 mg PO HS 08/04/17 [History] Bimatoprost [Lumigan] 1 drop RIGHT EYE HS 11/02/17 [History] Calcium Carbonate [Calcium] 600 mg PO DAILY 11/02/17 [History] Dorzolamide [Trusopt] 1 drop RIGHT EYE TID 11/02/17 [History] Tolterodine Tartrate [Detrol] 2 mg PO BID 11/02/17 [History] Docusate [Colace] 100 mg PO DAILY #14 capsule 12/06/18 [Rx] Amlodipine Besylate 10 mg PO DAILY 01/09/19 [History] Aspirin 325 mg PO DAILY 01/09/19 [History] Glimepiride [Amaryl] 4 mg PO DAILY 01/09/19 [History] Insulin ASPART [Novolog Flexpen] 4 - 8 unit SQ TIDWM 01/09/19 [History] Allergy/AdvReac Type Severity Reaction Status Date / Time Penicillins Allergy Unknown Hives Verified 01/07/19 08:14 All Systems Review: The remainder of the systems were reviewed and are negative - Cardiovascular Cardiovascular: no chest pain at rest, no dyspnea at rest, no irregular heart rhythm, no leg edema, no palpitations Physical Examination Vital Signs, Last 4 Hours Temp Pulse Resp BP Pulse Ox 01/15/19 07:00 88 25 134/62 95 01/15/19 06:00 86 26 134/65 95 01/15/19 05:00 85 25 135/59 95 01/15/19 04:26 98.6 F General: Conversant, No Apparent Distress HEENT: Atraumatic, Normocephaly Cardiac: Reg Rate and Rhythm, Normal S1 and S2, No Murmur Lungs: Normal Breath Sounds, No Wheeze, Rales, Rhonchi Neuro: Alert and responsive, No focal deficits noted Abdomen: Other (midline surgical incision present) Skin: No rashes noted on visualized skin Musculoskeletal: No Chest Wall Tenderness Extremities: No Clubbing, No Cyanosis, No Edema, Normal Pulses Results 01/15/19 01:29 01/15/19 01:29 Lab Results 01/14/19 01/14/19 01/14/19 09:10 10:25 14:52 WBC 9.6 Hgb 9.3 L Hct 28.8 L Plt Count 167 INR APTT Sodium 128 L 136 Potassium 5.4 H 4.4 Chloride 98 108 H Carbon Dioxide 19 L 17 L BUN 45 H 51 H Creatinine 1.34 H 1.43 H Glucose 979 H* 239 H Calcium 8.4 L 8.6 Magnesium 2.3 Troponin I 01/14/19 01/14/19 01/14/19 16:18 17:30 17:30 WBC 10.5 Hgb 9.7 L Hct 30.2 L Plt Count 182 INR 1.4 APTT 23.2 L D Sodium Potassium Chloride Carbon Dioxide BUN Creatinine Glucose Calcium Magnesium 2.1 Troponin I < 0.03 01/14/19 01/15/19 01/15/19 20:45 01:29 01:29 WBC 11.5 H Hgb 9.3 L Hct 29.4 L Plt Count 178 INR APTT Sodium 137 Potassium 4.2 Chloride 106 Carbon Dioxide 20 L BUN 55 H Creatinine 1.46 H Glucose 251 H Calcium 8.5 L Magnesium 2.0 Troponin I < 0.03 01/15/19 01:29 WBC Hgb Hct Plt Count INR APTT Sodium Potassium Chloride Carbon Dioxide BUN Creatinine Glucose Calcium Magnesium Troponin I < 0.03 Consult Discharge Plan - Plan Referrals: Ranjit Rodriguez MD [Primary Care Provider] - <Mer Baxter - Last Filed: 01/15/19 13:20> Date of Encounter: 01/15/19 - Attending Attestation I examined this patient and my medical decision-making was reviewed with the Resident Physician. I agree with the documented findings, disposition and treatment plan as described. Mr. Ventura recently underwent abdominal surgery. Course complicated by AF RVR. Consulted for abnormal ECG. At bedside, patient is sleepy but arousable and able to converse. No appreciable cardiac murmurs on exam. Lung sounds are normal. Mild bilateral UE/LE edema. Multiple ECGs from 01/14 and 01/[address] abnormalities noted without dynamic changes on serial ECGs. Troponins negative x 4. No SWMA on Echo. Impression/Plan: 1. ECG abnormalities: Recent ECGs demonstrate diffuse nonspecific ST abnormalities without dynamic changes on serial ECGs. Findings are not diagnostic of STEMI. Troponins negative x4. Normal LVEF without segmental wall motion abnormality on Echo. Patient denies chest pain. Recommend stopping heparin. Findings do not represent ACS. Consider restarting aspirin when patient able to tolerate oral medications. 2. PAF: Now in NSR. Recommend restarting home dose of amiodarone when able to take orals. Per records, patient not on full AC due to history of anemia. Continue aspirin. Will sign off. Recommend outpatient Cardiology follow up. Please call with questions. Assessment and Plan Discussion w patient/family: The assessment and plan as outlined above was discussed with the patient and/or family members who expressed understanding and agreement. All questions were answered. Thank you for involving us in the care of your patient. Please call with any questions. History of Present Illness History of present illness: Mr. Ventura is a 73 year old male All Systems Review: The remainder of the systems were reviewed and are negative Physical Examination Vital Signs, Last 4 Hours Temp Pulse Resp BP Pulse Ox 01/15/19 11:00 98.6 F 83 24 140/58 95 01/15/19 10:00 82 23 127/60 95 Results 01/15/19 01:29 01/15/19 01:29 Lab Results 01/14/19 01/14/19 01/14/19 14:52 16:18 17:30 WBC 10.5 Hgb 9.7 L Hct 30.2 L Plt Count 182 INR APTT Sodium 136 Potassium 4.4 Chloride 108 H Carbon Dioxide 17 L BUN 51 H Creatinine 1.43 H Glucose 239 H Calcium 8.6 Magnesium 2.1 Troponin I < 0.03 01/14/19 01/14/19 01/15/19 17:30 20:45 01:29 WBC Hgb Hct Plt Count INR 1.4 APTT 23.2 L D Sodium 137 Potassium 4.2 Chloride 106 Carbon Dioxide 20 L BUN 55 H Creatinine 1.46 H Glucose 251 H Calcium 8.5 L Magnesium 2.0 Troponin I < 0.03 01/15/19 01/15/19 01:29 01:29 WBC 11.5 H Hgb 9.3 L Hct 29.4 L Plt Count 178 INR APTT Sodium Potassium Chloride Carbon Dioxide BUN Creatinine Glucose Calcium Magnesium Troponin I < 0.03
[2019-01-15] MEDS: Insulin DETEMIR 100 UNIT/ML X5UNITS SQ SCH ×2 (09:21→20:01)
[2019-01-15] MEDS: Dorzolamide/Timolol 1 DROP RIGHT EYE SCH ×2 (09:23→20:11)
[2019-01-15] MEDS: *HR* Amiodarone 200 MG TABLET PO SCH (09:23)
[2019-01-15] MEDS: Heparin 25,000 UNIT/250 ML D5W 25,000 UNIT/250 ML IV.SOLN IVC SCH (10:05)
--- NOTE | 2019-01-15 13:14 | AcuteCareSurgery Progress Note ---
Date of Encounter: 01/15/19 Time of Encounter: 08:00 - Assessment and Plan (1) Colon obstruction Current Visit: Yes Status: Acute Due to colostomy stenosis d/t ischemia. POD#7 colostomy revision and G-tube. Colostomy functioning well and appears viable. Will obtain speech therapy evaluation prior to clear liquid diet. Continue TPN. (2) Colostomy dysfunction Current Visit: Yes Status: Acute Due to colostomy stenosis d/t ischemia. POD#7 colostomy revision and G-tube. Colostomy functioning well and appears viable. Will obtain speech therapy evaluation prior to clear liquid diet. Continue TPN. (3) Acute on chronic renal insufficiency Current Visit: Yes Status: Acute (4) Diabetes Current Visit: Yes Status: Acute Qualifiers: Diabetes mellitus type: type 2 Diabetes mellitus fci insulin use: without fci use Diabetes mellitus complication status: without complication Qualified Code(s): E11.9 - Type 2 diabetes mellitus without complications (5) ST segment changes on electrocardiogram Current Visit: Yes Status: Acute (6) Essential hypertension Current Visit: No Status: Chronic Subjective Patient reports: no new complaints, feels better, still having pain, pain is less Narrative: Colostomy functioning well. +dysphagia Objective Vital Signs - Last 8 Hours Temp Pulse Resp BP Pulse Ox 01/15/19 11:00 98.6 F 83 24 140/58 95 01/15/19 10:00 82 23 127/60 95 01/15/19 09:00 83 21 148/67 95 01/15/19 08:00 99.0 F 83 25 129/59 95 01/15/19 07:00 88 25 134/62 95 01/15/19 06:00 86 26 134/65 95 Intake and Output 01/14/19 01/15/19 01/15/19 23:59 07:59 15:59 Intake Total 1696 / 2901.5 703.8 / 836.0 132.2 / 836.0 Output Total 150 / 1175 425 / 675 250 / 675 Balance 1546 / 1726.5 278.8 / 161.0 -117.8 / 161.0 Intake: IV Fluids 1696 / 2901.5 703.8 / 836.0 132.2 / 836.0 Heparin 25,000 UNIT/250 ML D5W 133.8 / 266.0 132.2 / 266.0 25,000 unit In 250 ml @ 12 UNIT /KG/HR 11.064 mls/hr IVC . [id number] [facility] Rx#:[id number] Clinimix E 5%-15% SOLUTION 2, 1485 / 1485 000 ML @ 65 mls/hr IVC .Q24H [facility] with M.v.i. Adult 10 ml Rx# :[id number] Maxipime 2,000 MG In Water for 20 / 20 inj. (sterile) 20 ML @ 300 mls/ hr IVP Q24H [facility] Rx#:[id number] Ofirmev 1,000 mg/100 ml 1,000 100 / 300 200 / 200 mg In 100 ml @ 400 mls/hr IVPB Q6HR [facility] Rx#:[id number] Intralipid 20% 250 ML @ 21 mls/ 250 / 250 hr IVPB DAILY@1700 [facility] Rx#: [id number] Flagyl Premix 500 MG/100 ML 500 100 / 300 100 / 100 mg In 100 ml @ 100 mls/hr IVPB Q8HR [facility] Rx#:[id number] Oral 0 / 0 0 / 0 Output: Stool 0 / 0 0 / 0 0 / 0 Catheter 100 / 775 400 / 650 250 / 650 Gastric Drainage 50 / 400 25 / 25 0 / 25 Other: Weight 94.4 kg Blood Glucose* 295 219 179 Patient Weight 01/15/19 23:59 Weight 94.4 kg - General physical appearance no distress, moderate pain (as expected post-op and controlled ) - Eyes PERRL, normal ocular movement - ENT normal mucosa, no congestion, Other (edentulous) - Neck Neck exam: trachea midline, no venous distension - Respiratory normal respiratory effort, clear to auscultation - Cardiovascular Cardiovascular exam: Present: RRR Addtional Comments: recent HI - Abdomen Abdomen: Present: bowel sounds present, soft, tender (as expected post-op) - Incision Incision: Present: clean and dry, intact - Neurologic CN 2-12 grossly intact - Psychiatric oriented to time, oriented to person, oriented to place - Labs 01/15/19 01:29 01/15/19 01:29 Diabetes panel 01/14/19 01/15/19 Range/Units 14:52 01:29 Sodium 136 137 (136-145) mEq/L Potassium 4.4 4.2 (3.5-5.1) mEq/L Chloride 108 H 106 (98-107) mEq/L Carbon Dioxide 17 L 20 L (23-29) mEq/L BUN 51 H 55 H (8-23) mg/dL Creatinine 1.43 H 1.46 H (0.70-1.30) mg/dL Glucose 239 H 251 H (70-105) mg/dL Calcium 8.6 8.5 L (8.6-10.3) mg/dL Calcium panel 01/14/19 01/14/19 01/15/19 Range/Units 14:52 16:18 01:29 Calcium 8.6 8.5 L (8.6-10.3) mg/dL Phosphorus 3.4 3.0 (2.7-4.5) mg/dL Pituitary panel 01/14/19 01/15/19 Range/Units 14:52 01:29 Sodium 136 137 (136-145) mEq/L Potassium 4.4 4.2 (3.5-5.1) mEq/L Chloride 108 H 106 (98-107) mEq/L Carbon Dioxide 17 L 20 L (23-29) mEq/L BUN 51 H 55 H (8-23) mg/dL Creatinine 1.43 H 1.46 H (0.70-1.30) mg/dL Glucose 239 H 251 H (70-105) mg/dL Calcium 8.6 8.5 L (8.6-10.3) mg/dL Adrenal panel 01/14/19 01/15/19 Range/Units 14:52 01:29 Sodium 136 137 (136-145) mEq/L Potassium 4.4 4.2 (3.5-5.1) mEq/L Chloride 108 H 106 (98-107) mEq/L Carbon Dioxide 17 L 20 L (23-29) mEq/L BUN 51 H 55 H (8-23) mg/dL Creatinine 1.43 H 1.46 H (0.70-1.30) mg/dL Glucose 239 H 251 H (70-105) mg/dL Calcium 8.6 8.5 L (8.6-10.3) mg/dL Consult Discharge Plan - Plan Referrals: Ranjit Rodriguez MD [Primary Care Provider] -
[2019-01-15] MEDS: Pantoprazole 40 MG VIAL IVP SCH (16:07)
[2019-01-15] MEDS: Norepinephrine 4 MG in D5% in Water 250 ML IVC SCH (16:07)
[2019-01-15] MEDS ORDERED: Clinimix E 5%-15% SOLUTION 2,000 ML with MVI, adult with vitamin K 10 ML IVC SCH (17:00)
--- NOTE | 2019-01-15 17:26 | Electrocardiograph Report ---
[address] [place], [place] [address] Test Date: 2019-01-15 Pat Name: Jason Ventura Department: 109 Room: 12 Gender: M Trim Mechanic: : 1945 Requested By: Fabio Domingo Order Number: [id number] Reading MD: Mer Baxter Measurements Intervals [place] Rate: 88 P: 41 IN: 177 QRS: 39 QRSD: 105 T: 38 QT: 413 QTc: 459 Interpretive Statements SINUS RHYTHM POSSIBLE LEFT ATRIAL ENLARGEMENT DIFFUSE NONSPECIFIC ST ABNORMALITIES, CONSIDER ISCHEMIA Electronically Signed On 01-15-2019 17:24:57 EDT by Mer Baxter
--- NOTE | 2019-01-15 17:35 | Electrocardiograph Report ---
[address] [place], [place] [address] Test Date: 2019-01-14 Pat Name: Jason Ventura Department: 109 Room: 12 Gender: M Heel Emery Buffer: : 1945 Requested By: Fabio Domingo Order Number: [id number] Reading MD: Mer Baxter Measurements Intervals [place] Rate: 88 P: 41 OK: 182 QRS: 37 QRSD: 101 T: 37 QT: 408 QTc: 454 Interpretive Statements SINUS RHYTHM POSSIBLE LEFT ATRIAL ENLARGEMENT ST ELEVATION CONSISTENT WITH INJURY, PERICARDITIS, OR EARLY REPOLARIZATION Electronically Signed On 01-15-2019 17:34:03 EDT by Mer Baxter
--- NOTE | 2019-01-15 18:12 | Electrocardiograph Report ---
[address] [place], [place] [address] Test Date: 2019-01-14 Pat Name: Jason Ventura Department: 109 Room: 12 Gender: M Builder Beam: GENARO : 1945 Requested By: Fabio Domingo Order Number: [id number] Reading MD: Mer Baxter Measurements Intervals [place] Rate: 103 P: ME: 0 QRS: 11 QRSD: 117 T: 62 QT: 400 QTc: 460 Interpretive Statements ELECTRONIC VENTRICULAR PACEMAKER WITH SOME INHIBITION ABNORMAL ST FINDINGS MAY REPRESENT ISCHEMIA Electronically Signed On 01-15-2019 18:11:38 EDT by Mer Baxter
[2019-01-15] MEDS: Latanoprost 2.5 ML BOTTLE RIGHT EYE SCH (20:01)
[2019-01-16] MEDS: Insulin LISPRO 300 UNITS/3 ML VIAL SQ SCH ×5 (03:19→20:53)
[2019-01-16] MEDS: Acetaminophen IV 1,000 MG/100 ML INFUS..BTL IVPB SCH ×3 (05:00→18:34)
[2019-01-16] MEDS: Cefepime HCl 2,000 MG in Water for inj. (sterile) 20 ML IVP SCH ×2 (05:01→18:21)
[2019-01-16 05:43] LABS: Mean Corpuscular HGB Conc 32.1 g/dL (31.6-35.5); Mean Corpuscular Hemoglobin 27.7 pg (28.0-33.3); Mean Corpuscular Volume 86.2 fL (83.0-100.0); Mean Platelet Volume 12.1 fL (9.4-12.4); Nucleated Red Blood Cells 0.3 /100 WBC (0); Platelet Count 213 K/mcL (140-400); Red Blood Count 3.25 M/mcL (4.19-5.50); Red Cell Distribution Width 18.4 % (11.5-14.5); White Blood Count 15.1 K/mcL (4.3-11.1)
[2019-01-16 06:07] LABS: BUN/Creatinine Ratio 41 (6-26); Blood Urea Nitrogen 53 mg/dL (8-23); Calcium 8.4 mg/dL (8.6-10.3); Carbon Dioxide 20 mEq/L (23-29); Chloride 108 mEq/L (98-107); Glucose 190 mg/dL (70-105); Magnesium 2.1 mg/dL (1.6-2.6); Osmolality,Calculated 303 (280-300); Phosphorous 3.5 mg/dL (2.7-4.5); Potassium 4.3 mEq/L (3.5-5.1); Sodium 137 mEq/L (136-145); Triglycerides 143 mg/dL (< 150); eGFR For African Americans > 60 (> 60); eGFR For Non-African Americans 55 (> 60)
[2019-01-16 06:20] LABS: Lymphocytes # 0.9 K/mcL (0.6-4.6); Monocytes # 0.6 K/mcL (0.0-1.3); Platelet Estimate Normal (Normal)
[2019-01-16 06:21] LABS: Toxic Granulation Present (Not Present)
[2019-01-16] MEDS: *HR* Amiodarone 200 MG TABLET PO SCH (08:08)
[2019-01-16] MEDS: Pantoprazole 40 MG VIAL IVP SCH (08:09)
[2019-01-16] MEDS: MetroNIDAZOLE 500 MG/100 ML 500 MG/100 ML BAG IVPB SCH ×2 (08:11→15:46)
[2019-01-16] MEDS: Insulin DETEMIR 100 UNIT/ML X5UNITS SQ SCH ×2 (08:14→21:37)
--- NOTE | 2019-01-16 10:20 | AcuteCareSurgery Progress Note ---
<Lu Calix Jodi - Last Filed: 01/16/19 10:24> Date of Encounter: 01/16/19 Time of Encounter: 10:17 - Assessment and Plan (1) Colon obstruction Current Visit: Yes Status: Acute Presents with stenosis of the orifice of his colostomy. Has been dilated twice in the past month, currently unable to fit tip of finger into ostomy. 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 Status post laparotomy with lysis of adhesions, unavoidable enterotomy, takedown colostomy, left colon resection, transverse colostomy, small bowel resection with primary anastomosis day 8 Has output and colostomy bag Clamp G-tube Proceed with clear liquid diet pending swallow study Continue antibiotic coverage-cefepime, metronidazole Continue wound care, daily dressing changes Continue to monitor for stool, urine output, electrolytes to be repleted as necessary Incentive spirometry as able (2) Sepsis Current Visit: Yes Status: Acute Secondary to ischemic bowel Improved Management per primary Qualifiers: Sepsis type: sepsis due to unspecified organism Qualified Code(s): A41.9 - Sepsis, unspecified organism (3) Hypotension Current Visit: Yes Status: Resolved Resolved Secondary to sepsis due to ischemic bowel Qualifiers: Hypotension type: unspecified hypotension type Qualified Code(s): I95.9 - Hypotension, unspecified (4) Anemia Current Visit: Yes Status: Acute Hemoglobin has stabilized No signs of active bleeding Management per primary Qualifiers: Anemia type: unspecified type Qualified Code(s): D64.9 - Anemia, unspecified (5) Atrial fibrillation Current Visit: Yes Status: Chronic Continue amiodarone by mouth Management per primary Qualifiers: Atrial fibrillation type: paroxysmal Qualified Code(s): I48.0 - Paroxysmal atrial fibrillation (6) TONO (acute kidney injury) Current Visit: Yes Status: Acute Continues to improve Patient sustained TONO, secondary to hypotension, sepsis Renally dose medications and try to avoid nephrotoxic agents (7) T2DM (type 2 diabetes mellitus) Current Visit: Yes Status: Chronic Currently on TPN Currently on basal and sliding scale insulin Management per primary Qualifiers: Diabetes mellitus group home insulin use: with group home use Diabetes mellitus complication status: with hyperglycemia Qualified Code(s): E11.65 - Type 2 diabetes mellitus with hyperglycemia; Z79.4 - intermediate (current) use of insulin (8) DVT prophylaxis Current Visit: Yes Status: Acute SCDs Subjective Narrative: Patient seen and examined at bedside today. He states that his pain is well controlled. Kidneys to have some intermittent confusion. He denies fever, chil ls, chest pain, shortness of breath, calf pain. He does have some output into his colostomy. Objective Vital Signs - Last 8 Hours Temp Pulse Resp BP Pulse Ox 01/16/19 09:00 82 25 128/62 92 01/16/19 08:00 84 24 135/64 92 01/16/19 07:00 97.8 F 01/16/19 06:19 85 22 139/61 92 01/16/19 05:00 87 24 152/58 92 01/16/19 04:00 84 24 140/61 92 01/16/19 03:00 97.8 F 83 22 142/63 92 01/16/19 02:37 84 Intake and Output 01/15/19 01/16/19 01/16/19 23:59 07:59 15:59 Intake Total 320 / 1356.0 470 / 470 Output Total 820 / 1795 705 / 705 Balance -500 / -439.0 -235 / -235 Intake: IV Fluids 320 / 1356.0 470 / 470 Maxipime 2,000 MG In Water for 20 / 20 20 / 20 inj. (sterile) 20 ML @ 300 mls/ hr IVP Q12H [facility] Rx#:[id number] Ofirmev 1,000 mg/100 ml 1,000 200 / 500 100 / 100 mg In 100 ml @ 400 mls/hr IVPB Q6HR [facility] Rx#:[id number] Intralipid 20% 250 ML @ 21 mls/ 250 / 250 hr IVPB DAILY@1700 [facility] Rx#: [id number] Flagyl Premix 500 MG/100 ML 500 100 / 300 100 / 100 mg In 100 ml @ 100 mls/hr IVPB Q8HR [facility] Rx#:[id number] Output: Catheter 650 / 1550 675 / 675 Gastric Drainage 170 / 245 30 / 30 Other: Blood Glucose* 179 201 - General physical appearance no distress, moderate pain (Appropriate postsurgical) - Eyes PERRL, normal ocular movement - ENT normal nares, no congestion, dry mucosa - Neck Neck exam: no masses, trachea midline - Respiratory normal expansion, normal respiratory effort, clear to percussion, clear to auscultation - Cardiovascular Cardiovascular exam: Present: RRR, no murmurs/rubs/gallops. Absent: JVD - Abdomen Abdomen: Present: bowel sounds present, soft (Ostomy has output), tender. Absent: distended Abdominal Tenderness: RLQ (Around incision and colostomy, appropriate as postsurgical, controlled) - Incision Incision: Present: clean and dry, intact - Neurologic CN 2-12 grossly intact, normal coordination, normal sensation - Musculoskeletal normal posture - Psychiatric oriented to person, oriented to place - Labs 01/16/19 05:12 01/16/19 05:12 Diabetes panel 01/16/19 Range/Units 05:12 Sodium 137 (136-145) mEq/L Potassium 4.3 (3.5-5.1) mEq/L Chloride 108 H (98-107) mEq/L Carbon Dioxide 20 L (23-29) mEq/L BUN 53 H (8-23) mg/dL Creatinine 1.28 (0.70-1.30) mg/dL Glucose 190 H (70-105) mg/dL Calcium 8.4 L (8.6-10.3) mg/dL Triglycerides 143 (< 150) mg/dL Calcium panel 01/16/19 Range/Units 05:12 Calcium 8.4 L (8.6-10.3) mg/dL Phosphorus 3.5 (2.7-4.5) mg/dL Pituitary panel 01/16/19 Range/Units 05:12 Sodium 137 (136-145) mEq/L Potassium 4.3 (3.5-5.1) mEq/L Chloride 108 H (98-107) mEq/L Carbon Dioxide 20 L (23-29) mEq/L BUN 53 H (8-23) mg/dL Creatinine 1.28 (0.70-1.30) mg/dL Glucose 190 H (70-105) mg/dL Calcium 8.4 L (8.6-10.3) mg/dL Adrenal panel 01/16/19 Range/Units 05:12 Sodium 137 (136-145) mEq/L Potassium 4.3 (3.5-5.1) mEq/L Chloride 108 H (98-107) mEq/L Carbon Dioxide 20 L (23-29) mEq/L BUN 53 H (8-23) mg/dL Creatinine 1.28 (0.70-1.30) mg/dL Glucose 190 H (70-105) mg/dL Calcium 8.4 L (8.6-10.3) mg/dL Consult Discharge Plan - Plan Referrals: Ranjit Rodriguez MD [Primary Care Provider] - <Manuela Marcelo - Last Filed: 01/16/19 12:53> Date of Encounter: 01/16/19 - Assessment and Plan (1) Colon obstruction Current Visit: Yes Status: Acute (2) Colostomy dysfunction Current Visit: Yes Status: Acute (3) Acute on chronic renal insufficiency Current Visit: Yes Status: Acute (4) Diabetes Current Visit: Yes Status: Acute Qualifiers: Qualified Code(s): E11.9 - Type 2 diabetes mellitus without complications (5) ST segment changes on electrocardiogram Current Visit: Yes Status: Acute (6) Essential hypertension Current Visit: No Status: Chronic Objective Vital Signs - Last 8 Hours Temp Pulse Resp BP Pulse Ox 01/16/19 11:49 98.6 F 01/16/19 09:00 82 25 128/62 92 01/16/19 08:00 84 24 135/64 92 01/16/19 07:00 97.8 F 01/16/19 06:19 85 22 139/61 92 01/16/19 05:00 87 24 152/58 92 Intake and Output 01/15/19 01/16/19 01/16/19 23:59 07:59 15:59 Intake Total 320 / 1356.0 470 / 570 100 / 570 Output Total 820 / 1795 705 / 1055 350 / 1055 Balance -500 / -439.0 -235 / -485 -250 / -485 Intake: IV Fluids 320 / 1356.0 470 / 570 100 / 570 Maxipime 2,000 MG In Water for inj. (sterile) 20 ML @ 300 mls/ hr IVP Q12H [facility] Rx#:[id number] Ofirmev 1,000 mg/100 ml 1,000 200 / 500 100 / 100 mg In 100 ml @ 400 mls/hr IVPB Q6HR [facility] Rx#:[id number] Intralipid 20% 250 ML @ 21 mls/ 250 / 250 hr IVPB DAILY@1700 [facility] Rx#: [id number] Flagyl Premix 500 MG/100 ML 500 100 / 300 100 / 200 100 / 200 mg In 100 ml @ 100 mls/hr IVPB Q8HR [facility] Rx#:[id number] Output: Catheter 650 / 1550 675 / 975 300 / 975 Gastric Drainage 170 / 245 30 / 80 50 / 80 Other: Weight 96.6 kg Blood Glucose* 179 201 206 Patient Weight 01/16/19 23:59 Weight 96.6 kg - Labs 01/16/19 05:12 01/16/19 05:12 Diabetes panel 01/16/19 Range/Units 05:12 Sodium 137 (136-145) mEq/L Potassium 4.3 (3.5-5.1) mEq/L Chloride 108 H (98-107) mEq/L Carbon Dioxide 20 L (23-29) mEq/L BUN 53 H (8-23) mg/dL Creatinine 1.28 (0.70-1.30) mg/dL Glucose 190 H (70-105) mg/dL Calcium 8.4 L (8.6-10.3) mg/dL Triglycerides 143 (< 150) mg/dL Calcium panel 01/16/19 Range/Units 05:12 Calcium 8.4 L (8.6-10.3) mg/dL Phosphorus 3.5 (2.7-4.5) mg/dL Pituitary panel 01/16/19 Range/Units 05:12 Sodium 137 (136-145) mEq/L Potassium 4.3 (3.5-5.1) mEq/L Chloride 108 H (98-107) mEq/L Carbon Dioxide 20 L (23-29) mEq/L BUN 53 H (8-23) mg/dL Creatinine 1.28 (0.70-1.30) mg/dL Glucose 190 H (70-105) mg/dL Calcium 8.4 L (8.6-10.3) mg/dL Adrenal panel 01/16/19 Range/Units 05:12 Sodium 137 (136-145) mEq/L Potassium 4.3 (3.5-5.1) mEq/L Chloride 108 H (98-107) mEq/L Carbon Dioxide 20 L (23-29) mEq/L BUN 53 H (8-23) mg/dL Creatinine 1.28 (0.70-1.30) mg/dL Glucose 190 H (70-105) mg/dL Calcium 8.4 L (8.6-10.3) mg/dL - Attending Attestation I examined this patient and my medical decision-making was reviewed with the Resident Physician. I agree with the documented findings, disposition and treatment plan as described except to the extent set forth below.
[2019-01-16] MEDS: Dorzolamide/Timolol 1 DROP RIGHT EYE SCH ×2 (11:24→21:37)
--- NOTE | 2019-01-16 12:45 | Internal Med Progress Note ---
Hospitalist Progress Note - Encounter Date of Encounter: 01/16/19 Time of Encounter: 11:00 - Subjective Interval History: Hospital course reviewed. Patient did not have any complaints of abdominal pain, N/V, or fever/chills but RN reported that his abdominal dressing was saturated and had episodes of loose stools. - Exam Vitals: Temp Pulse Resp BP Pulse Ox 98.6 F 82 25 128/62 92 01/16/19 11:49 01/16/19 09:00 01/16/19 09:00 01/16/19 09:00 01/16/19 09:00 Exam: General: Alert and oriented, not in acute distress but noted to be breathing shallow Cardiovascular:Normal S1 & S2, No JVD. Pulse regular. Lungs: clear to auscultation, no wheezes/rales Abdomen:Soft, pink stoma noted. L sided abdominal dressing at the time of exam was c/d/i Extremities:No deformity or swelling Neurological:Normal cognition and motor skills. Non-focal - Assessment and Plan (1) Sepsis Current Visit: Yes Status: Acute Assessment and Plan: Patient was initially admitted for colostomy dysfunction Underwent extensive intra-abdominal surgery on 01/08 involving 4 hours of a dhesiolysis, takedown colostomy and L colon resection, transverse colostomy, and SB resection wth primary anastomosis complicated by shock post-operatively, likely due to sepsis and hypovolemia. Also had lactic acidosis of 5.5 required brief vasopressor support, d/nicholas on 01/11 BP normalized but pt is noted to have worsening leukocytosis and bandemia despite being on Cefepime/flagyl (D8 today) discussed with surgery ?wound infection. await for their evaluation today consult ID ?may need fluconazole vs further imaging (2) Acute on chronic renal insufficiency Current Visit: Yes Status: Acute Assessment and Plan: improving, Cr back to baseline (3) Atrial fibrillation Current Visit: Yes Status: Chronic Assessment and Plan: hospital course was complicated by afib with RVR and diffuse ST changes on EKG serial troponins -ve required amiodarone gtt -> now on PO Amiodarone Echo showed preserved EF and no significant valvulopathy appreciate cardiology input, hep gtt d/nicholas. Patient did not tolerate full AC previously as per outpatient records. Will resume aspirin 325mg when cleared by surgery. (4) Colostomy dysfunction Current Visit: Yes Status: Acute Assessment and Plan: s/p op on 01/08 as above on TPN currently for MBS prior to initiating diet (5) Essential hypertension Current Visit: No Status: Chronic Assessment and Plan: norvasc on hold (6) T2DM (type 2 diabetes mellitus) Current Visit: Yes Status: Chronic Assessment and Plan: continue basal bolus insulin DVT Prophylaxis: SQ heparin - Time Spent with Patient Total time spent is greater than 50% in coordination of care (as documented) at patient's floor/unit and/or counseling patient: Greater than 35 minutes (discussed with ID and surgery in great detail regarding the concerns for worsening sepsis) Plan of Care Discussed with: nurse Internal Medicine: Result - Labs CBC & Chem 7: 01/16/19 05:12 01/16/19 05:12 Labs: Short CBC 01/16/19 Range/Units 05:12 WBC 15.1 H (4.3-11.1) K/mcL Hgb 9.0 L (12.9-16.9) g/dL Hct 28.0 L (37.5-50.1) % Plt Count 213 (140-400) K/mcL Neutrophils # 13.0 H (1.6-8.9) K/mcL BMP 01/16/19 05:12 Sodium 137 Potassium 4.3 Chloride 108 H Carbon Dioxide 20 L BUN 53 H Creatinine 1.28 Glucose 190 H Calcium 8.4 L - ABG Interpretation ABG results: PT/INR, D-dimer PT 15.5 Seconds (9.4-12.1) H 01/14/19 17:30 Consult Discharge Plan - Plan Referrals: Ranjit Rodriguez MD [Primary Care Provider] - (1) Sepsis Qualifiers: Sepsis type: sepsis due to unspecified organism Qualified Code(s): A41.9 - Sepsis, unspecified organism (3) Atrial fibrillation Qualifiers: Atrial fibrillation type: paroxysmal Qualified Code(s): I48.0 - Paroxysmal atrial fibrillation (6) T2DM (type 2 diabetes mellitus) Qualifiers: 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
[2019-01-16] MEDS ORDERED: Isovue-370 500 ML BOTTLE IVP ONE (14:47)
--- NOTE | 2019-01-16 15:11 | Infectious Disease Consult ---
Infectious Disease-Consult - Encounter Date/Time Date of Encounter: 01/16/19 Time of Encounter: 13:30 - Data of Consult Patient: new to practice Reason for consult: Sepsis, intra-abdominal source with worsening bandemia Requesting Physician: Ramon Waters MD Primary Care Provider: Ranjit Rodriguez MD - HPI HPI: Mr. Maxwell is a 73-year-old gentleman who is admitted to [facility] on 01/07/19 due to abdominal pain and oozing from his colostomy surgical site as well as "backing up from his colostomy." Infectious disease was consulted today due to sepsis from a likely intra-abdominal source and worsening bandemia despite use of antibiotics. Mr. Maxwell is a 73-year-old gentleman with history of colorectal cancer status post Kayla procedure in September 2018, atrial fibrillation, CAD, diabetes, kidney disease, who presented to [facility] on 01/07/19 due to using and pain from his colostomy site. He apparently has had problems with narrowing at the site of his stoma which has required dilatation in the past. In 2004, the patient had a colonic procto-anastomotic procedure due to colorectal cancer which required conversion to a Kayla procedure with colostomy and 09/2018 that has been complicated by significant scarring and adhesions. At the time of admission the patient had no significant evidence of infection, however he did undergo operati ve management on 01/08/19 which required lysis of adhesions and at that time he was found have significant ischemia of the surrounding tissue. The patient was also admitted with substantial acute kidney injury. Over the course of his stay the patient did have cultures of his blood as well as urine which were negative. The patient was placed on cefepime and Flagyl, and while he was afebrile, the patient did remain in the ICU with pressor support initially for about 24 hours however he otherwise did relatively well. He did develop atrial fibrillation with rapid ventricular response, and additionally the patient remained unable to take by mouth food due to dysphasia. Over the course of his stay, the patient continued to have elevated white blood cell count and developed a worsening bandemia. Additionally, the patient apparently developed a fever, with a MAXIMUM TEMPERATURE of 100.4 and with tachypnea which has only been in the past 2-3 days. According to the patient's family, he has also had some relative confusion and has talked about people breaking into his house and trying to steal his things which is very unusual for him. At time of examination, the patient does not have any acute complaints. He has a relatively normal review of systems. He is not complaining of any nausea, vomiting, abdominal pain that is worse than it has been during his admission. He does admit to some shortness of breath which has been going on for the past couple weeks and he feels that maybe it has been going on a little bit worse since he got here. He denies any significant cough. The patient does have a Payton catheter and cannot really admit any urinary symptoms at this time. - ROS Review of Systems: Constitutional: Denies fevers, chills, weight loss, generalized fatigue Head/Neck: Denies CATHERINE, neck stiffness EENT: Denies vision changes/blurriness, rhinorrhea, congestion, sore throat CVS: Denies chest pain, palpitations, ESPINO, orthopnea, edema, PND Pulm: Admits to shortness of breath, denies cough, sputum production, hemoptysis GI: Admits to generalized abdominal pain, denies nausea, vomiting. : Denies dysuria, increased frequency, urgency, hematuria Heme: Denies ease of bleeding or bruising MSK: Denies joint pain, limited ROM Skin: Denies rashes, ulcers, color changes Neuro: Denies CATHERINE, paresthesias, focal deficits, ataxia - Results CBC & Chem 7: 01/19/19 03:44 01/19/19 03:44 - Exam Vitals: Temp Pulse Resp BP Pulse Ox 98.6 F 82 25 128/62 92 01/16/19 11:49 01/16/19 09:00 01/16/19 09:00 01/16/19 09:00 01/16/19 09:00 Exam: Gen: Vitals noted. No acute distress. Eyes: anicteric sclerae, moist conjunctivae; no lid-lag; Pupils equal and reactive to light HENT: Atraumatic; oropharynx clear very dry mucous membranes and tongue; normal hard and soft palate. Voice is quite hoarse and somewhat garbled Neck: Trachea midline; supple, no thyromegaly or lymphadenopathy Cardiac: RRR, I did think that I heard a faint flow murmur however this did resolve with deep inspiration, +S1/S2 Pulmonary: Scattered wheezes heard throughout however significantly more so on the right than the left. No rhonchi noted rales Abdomen: soft, somewhat tender to palpation, no guarding. No masses or hepatosplenomegaly. There is dressing in place over the site of prior operation. PEG tube in place with purulent yellow-green drainage surrounding however otherwise healthy-appearing skin MSK: ROM intact, no joint swelling noted Extremities: 1+ BLE edema, nontender calf, no cyanosis or clubbing Skin: Normal temperature, turgor and texture; no rash, ulcers or subcutaneous nodules Neuro: moves all extremities, no focal deficits. Psych: Appropriate mood and behavior. A&Ox3 Ascorbic Acid [Vitamin C] 1,000 mg PO DAILY 12/31/15 [History] Metoprolol [Lopressor] 100 mg PO BID 12/31/15 [History] Multivitamin [One Daily Essential] 1 tab PO DAILY 12/31/15 [History] Brimonidine Tartrate/Timolol [Combigan 0.2%-0.5% Eye Drops] 1 drop RIGHT EYE BID 10/18/16 [History] Insulin DETEMIR [Levemir Flextouch] 12 unit SQ BID 11/09/16 [History] Amiodarone [Cordarone] 200 mg PO DAILY 08/04/17 [History] Zolpidem [Ambien] 10 mg PO HS 08/04/17 [History] Bimatoprost [Lumigan] 1 drop RIGHT EYE HS 11/02/17 [History] Calcium Carbonate [Calcium] 600 mg PO DAILY 11/02/17 [History] Dorzolamide [Trusopt] 1 drop RIGHT EYE TID 11/02/17 [History] Tolterodine Tartrate [Detrol] 2 mg PO BID 11/02/17 [History] Docusate [Colace] 100 mg PO DAILY #14 capsule 12/06/18 [Rx] Amlodipine Besylate 10 mg PO DAILY 01/09/19 [History] Aspirin 325 mg PO DAILY 01/09/19 [History] Glimepiride [Amaryl] 4 mg PO DAILY 01/09/19 [History] Insulin ASPART [Novolog Flexpen] 4 - 8 unit SQ TIDWM 01/09/19 [History] Allergy/AdvReac Type Severity Reaction Status Date / Time Penicillins Allergy Unknown Hives Verified 01/07/19 08:14 - Assessment and Plan (1) Sepsis Current Visit: Yes Status: Acute Sepsis, etiology uncertain at this time SIRS criteria: WBC 15.1 (Bands 22), T100.4, RR 25. Possible source: Surgical site infection vs. aspiration pna Patient presented colostomy dysfunction and obstruction as well as ischemia on 01/07/19 CT abdomen/pelvis 01/07/19 demonstrated wall thickening and inflammatory changes involving the descending colon to the level of the ostomy suggestive of residual infectious versus inflammatory colitis Although the patient initially seemed to be improving, is evidence for sepsis is rising again later in his stay The patient only developed a bandemia 01/15/19, and it continues to rise. Toxic granulations also are present Additionally, physical exam demonstrates purulent drainage around PEG tube Family complains of confusion and changes in mental status Lactic acid 5.5 (01/09) -> 2.4 (01/10) Cultures 01/09/19 blood cultures negative 2 01/07/19 urine cultures negative Antibiotics Cefepime 2 g IV every 12 hours day 8 (renally adjusted) Metronidazole 500 mg IV every 8 hours day Recommendations -Repeat imaging of Abdomen/pelvis, Chest to determine possible sources of infection. Patient does have wheezing as well as purulent drainage from surgical site at PEG tube. -Aspiration pneumonia is on differential considering hoarse voice and failed swallow eval. -Patient was apparently underdosed on cefepime over the weekend -We will continue cefepime and Flagyl at the correct renal doses -Add vancomycin for MRSA coverage -Goal trough 15 -Repeat blood cultures, wound cultures + gram stain -Check procalcitonin, inflammatory markers -Consult to Allergy/immunology for penicillin allergy testing Qualifiers: Sepsis type: Streptococcus, other Qualified Code(s): A40.8 - Other streptococcal sepsis SNOMED Code(s): 94386231 (2) Colostomy dysfunction Current Visit: Yes Status: Resolved Colostomy dysfunction requiring operative lysis of adhesions and repair Possible surgical site infection as source of sepsis Management per surgical team SNOMED Code(s): 67679789 (3) Dysphagia Current Visit: Yes Status: Acute Dysphagia, patient has failed modified barium swallow Unknown cause of patient's dysphagia at this time Although it is possible that the patient has damaged her vocal cords due to intubation, he has not been investigated Additionally, the patient's family says that he has also been confused We will get a CT of the head and soft tissue neck Discussed with primary team, defer treatment to them Because of dysphagia, consider aspiration pneumonia as source of infection CT of the chest as well Checking pro-calcitonin Qualifiers: Dysphagia type: oropharyngeal phase Qualified Code(s): R13.12 - Dysphagia, oropharyngeal phase SNOMED Code(s): 79088001, 651428445 (4) Abdominal pain Current Visit: Yes Status: Acute Abdominal pain, secondary to colostomy dysfunction Management per primary team and acute care surgery Qualifiers: Abdominal location: generalized Qualified Code(s): R10.84 - Generalized abdominal pain SNOMED Code(s): 78067968 (5) Acute kidney injury superimposed on CKD Current Visit: Yes Status: Acute TONO on CKD3 Patient presented with elevated serum creatinine which worsened during stay Seems to be resolving at this time, however will continue to monitor as we will be starting the patient on Vancomycin SNOMED Code(s): 06465657 (6) Atrial fibrillation Current Visit: Yes Status: Chronic Management per primary team Qualifiers: Atrial fibrillation type: paroxysmal Qualified Code(s): I48.0 - Paroxysmal atrial fibrillation SNOMED Code(s): 73287915 (7) Diabetes Current Visit: Yes Status: Acute On home insulin Management per primary team Qualifiers: Diabetes mellitus type: type 2 Diabetes mellitus halfway insulin use: without termite treater helper use Diabetes mellitus complication status: without complication Qualified Code(s): E11.9 - Type 2 diabetes mellitus without complications SNOMED Code(s): 97599519 (8) Hydronephrosis, left Current Visit: No Status: Chronic Chronic, has payton catheter SNOMED Code(s): 65667987 Past Med Surg Social Fam HX - Past Medical History Medical history: atrial fibrillation, cancer, coronary artery disease, diabetes, glaucoma, kidney stones, renal disease Additional medical history: rectal cancer, GI bleed r/t Xarelto. Psychiatric history: anxiety, depression - Past Surgical History Surgical History: pacemaker/AICD, other Additional surgical history: colon resection, hernia repair - 11/02/2017; eye sx., Pacer. - Social History Smoking Status: Never smoker Smokeless Tobacco Status: No Alcohol use: none Drug use: none - Family History Father Living Status: Hx Family Cardiac Disorders: Yes Mother Living Status: Consult Discharge Plan - Plan Referrals: Ranjit Rodriguez MD [Primary Care Provider] - - Attending Attestation I examined this patient and my medical decision-making was reviewed with the Resident Physician. I agree with the documented findings, disposition and treatment plan as described except to the extent set forth below. This is an addendum to original report dictated by resident physician. Please refer to resident's note for full detail. Agree with above physical examination review of system. Patient is 73-year-old gentleman who was admitted on 01/07/2019 with abdominal pain and oozing from his colostomy surgical site. In 2004 patient did have a colonic procto-anastomotic procedure due to colorectal cancer which was converted to a Kayla procedure with colostomy in September [address] martinez on 01/08/2019 patient was taken to the OR for adhesional lysis and significant isc hemia of the surrounding tissue. Patient continued to have worsening leukocytosis and low-grade temperature so we were asked to evaluate the patient's make further recommendations. On physical exam patient answers questions and follows command but he has mumbled speech. I asked family at bedside at this normal for him and they said no. Patient also failed a swallow evaluation and I do not know why. Patient was fully functional before he came in this time. Rest of the physical exam is as above. Family also tells me that he has been confused and having hallucination and saying there are people coming to his house to steal things. Assessment and plan: 1.Sepsis 2.Colostomy dysfunction 3.Dysphagia 4.Confusion 5.Encephalopathy 6.Abdominal pain 7.Concern for aspiration pneumonia 8.Diabetes mellitus type 2 9.Atrial fibrillation 10.Acute kidney injury Recommendations -Repeat imaging of Abdomen/pelvis, Chest to determine possible sources of infection. Patient does have wheezing as well as purulent drainage from surgical site at PEG tube. -Aspiration pneumonia is on differential considering hoarse voice and failed swallow eval. -Patient was apparently underdosed on cefepime over the weekend -We will continue cefepime and Flagyl at the correct renal doses -Add vancomycin for MRSA coverage -Goal trough 15 -Repeat blood cultures, wound cultures + gram stain -Check procalcitonin, inflammatory markers -Consult to Allergy/immunology for penicillin allergy testing
[2019-01-16] MEDS ORDERED: EPINEPHrine 1 MG/ML VIAL IV PRN (16:51)
[2019-01-16] MEDS ORDERED: Clinimix E 5%-15% SOLUTION 2,000 ML with MVI, adult with vitamin K 10 ML, Trace Eleme... IVC SCH (17:00)
[2019-01-16] MEDS ORDERED: *HR* Heparin 5,000 UNIT/ML VIAL SQ SCH (18:00)
--- NOTE | 2019-01-16 21:29 | Allergy Consult Note ---
Date of Encounter: 01/17/19 Time of Encounter: 15:00 Assessment and Plan (1) Adverse effect of penicillins, initial encounter Current Visit: Yes Status: Acute Patient is a good candidate for penicillin testing. 1. I will plan to test patient 01/17/19 morning around 8:45. Penicillin testing was discussed in detail. I explained we will first do skin pricks on the forearm with controls and different types of penicillin. If this is negative then we will do intradermals, which are a more sensitive skin test on the upper arms with the different peni cillins. If that is negative then we will proceed to a graded oral challenge with amoxicillin. Patient will be given a 10% dose of amoxicillin and observed for 15 minutes. Then I will give a full dose of amoxicillin and observe them for 60 minutes. I explained that the risk of reaction with skin test and oral challenge are low but could include hives, rash, difficulty breathing, closure of airway, drop in blood pressure, and . All questions were answered. I have explained to him the risk and benefits and explained that if he did have an allergic reaction because he is on a beta nikunj that he is more at risk for . Due to his current state I don't want to stop his beta nikunj. I believe the benefits of the test outweigh the risks. His reaction in the 50's was rash and not anaphylaxis. He tolerates cephalosporins. It was penicillin he reacted to so his risk with the amoxicillin challenge is likely lower. Qualifiers: Encounter type: initial encounter Qualified Code(s): T36.0X5A - Adverse effect of penicillins, initial encounter (2) Allergy status to penicillin Current Visit: Yes Status: Acute History of Present Illness Consult date: 01/16/19 Reason for consult: Drug allergy Requesting physician: Jonathan Herrera History of present illness: Patient is currently admitted for sepsis. Dr. Herrera is asking my opinion as to whether patient is a good candidate for penicillin testings. Patient reports that in the 50's he had a rash after a shot of penicillin. He does not remember having any difficulty breathing, vomiting or swelling. He has tolerated cephalosporins. He currently denies itching or rash. Past Med Surg Social Fam HX - Past Medical History Medical history: atrial fibrillation, cancer, coronary artery disease, diabetes, glaucoma, kidney stones, renal disease Additional medical history: rectal cancer, GI bleed r/t Xarelto. Psychiatric history: anxiety, depression - Past Surgical History Surgical History: pacemaker/AICD, other Additional surgical history: colon resection, hernia repair - 11/02/2017; eye sx., Pacer. - Social History Smoking Status: Never smoker Smokeless Tobacco Status: No Alcohol use: none Drug use: none - Family History Father Living Status: Hx Family Cardiac Disorders: Yes Mother Living Status: Medications and Allergies Ascorbic Acid [Vitamin C] 1,000 mg PO DAILY 12/31/15 [History] Metoprolol [Lopressor] 100 mg PO BID 12/31/15 [History] Multivitamin [One Daily Essential] 1 tab PO DAILY 12/31/15 [History] Brimonidine Tartrate/Timolol [Combigan 0.2%-0.5% Eye Drops] 1 drop RIGHT EYE BID 10/18/16 [History] Insulin DETEMIR [Levemir Flextouch] 12 unit SQ BID 11/09/16 [History] Amiodarone [Cordarone] 200 mg PO DAILY 08/04/17 [History] Zolpidem [Ambien] 10 mg PO HS 08/04/17 [History] Bimatoprost [Lumigan] 1 drop RIGHT EYE HS 11/02/17 [History] Calcium Carbonate [Calcium] 600 mg PO DAILY 11/02/17 [History] Dorzolamide [Trusopt] 1 drop RIGHT EYE TID 11/02/17 [History] Tolterodine Tartrate [Detrol] 2 mg PO BID 11/02/17 [History] Docusate [Colace] 100 mg PO DAILY #14 capsule 12/06/18 [Rx] Amlodipine Besylate 10 mg PO DAILY 01/09/19 [History] Aspirin 325 mg PO DAILY 01/09/19 [History] Glimepiride [Amaryl] 4 mg PO DAILY 01/09/19 [History] Insulin ASPART [Novolog Flexpen] 4 - 8 unit SQ TIDWM 01/09/19 [History] Allergy/AdvReac Type Severity Reaction Status Date / Time Penicillins Allergy Unknown Hives Verified 01/07/19 08:14 ROS Allergy - Constitutional Constitutional ROS: no fever(s), no headache(s) - EENT Nose, mouth and throat: change in voice, dry mouth - Cardiovascular Cardiovascular ROS IM: no chest pain - Respiratory dyspnea, no cough - Gastrointestinal Gastrointestinal: no nausea, no vomiting - Integumentary Integumentary: no rash - Neurological Neurological ROS: abnormal speech - Psychiatric Psychiatric general: abnormal sleep pattern - Hematologic/Lymphatic no lymphadenopathy - Allergic/Immunologic no uticaria Allergy Exam Initial Vital Signs Temp Pulse Resp BP Pulse Ox 97.5 F L 60 16 147/77 97 01/07/19 08:12 01/07/19 08:12 01/07/19 08:12 01/07/19 08:12 01/07/19 08:12 - Additional Findings Constitutional: alert, in no acute distress Head: Normocephalic, atraumatic Eyes:normal, conjunctiva clear Ears:Tympanic membrane normal bilaterally, canals clear bilaterally Nose: Nares patent, no drainage Mouth: His membranes are very dry, white plaques on roof of mouth and posterior pharnyx Neck: Supple, no lymphadenopathy noted Heart: regular rate and rhythm Lungs:clear to auscultation bilaterally, no respiratory distress, no retractions, no wheezing Ext-1+edema of legs, feet and hands. Skin: no rashes, bandages in place on abdomen. Results - Labs 01/17/19 04:20 01/17/19 04:20 Abnormal lab results WBC 15.1 K/mcL (4.3-11.1) H 01/16/19 05:12 RBC 3.25 M/mcL (4.19-5.50) L 01/16/19 05:12 Hgb 9.0 g/dL (12.9-16.9) L 01/16/19 05:12 Hct 28.0 % (37.5-50.1) L 01/16/19 05:12 MCH 27.7 pg (28.0-33.3) L 01/16/19 05:12 MCHC 30.7 g/dL (31.6-35.5) L 01/09/19 03:58 RDW 18.4 % (11.5-14.5) H 01/16/19 05:12 22.0 % (0-4) H 01/16/19 05:12 2.0 % (0) H 01/10/19 04:15 4.0 % (0) H 01/16/19 05:12 13.0 K/mcL (1.6-8.9) H 01/16/19 05:12 0.5 K/mcL (0.6-4.6) L 01/11/19 03:45 Nucleated RBCs/100 WBC 0.3 /100 WBC (0) H 01/16/19 05:12 Present (Not Present) A 01/16/19 05:12 Present (Not Present) A 01/13/19 04:00 Present (Not Present) A 01/13/19 04:00 1+ (Not Present) A 01/13/19 04:00 Present (Not Present) A 01/13/19 04:00 1+ (Not Present) A 01/11/19 03:45 1+ (Not Present) A 01/11/19 03:45 PT 15.5 Seconds (9.4-12.1) H 01/14/19 17:30 APTT 23.2 Seconds (26.0-36.0) L D 01/14/19 17:30 Heparin Anti-Xa, Unfract 0.00 IU/mL (0.30-0.70) L 01/14/19 17:30 Sodium 128 mEq/L (136-145) L 01/14/19 09:10 Potassium 5.4 mEq/L (3.5-5.1) H 01/14/19 09:10 Chloride 108 mEq/L (98-107) H 01/16/19 05:12 Carbon Dioxide 20 mEq/L (23-29) L 01/16/19 05:12 BUN 53 mg/dL (8-23) H 01/16/19 05:12 1.46 mg/dL (0.70-1.30) H 01/15/19 01:29 Est GFR ( Amer) 57 (> 60) L 01/15/19 01:29 Est GFR (Non-Af Amer) 55 (> 60) L 01/16/19 05:12 41 (6-26) H 01/16/19 05:12 Glucose 190 mg/dL (70-105) H 01/16/19 05:12 POC Glucose 206 mg/dL (70-99) H 01/16/19 11:13 6.2 % (-5.6) H 01/07/19 08:46 303 (280-300) H 01/16/19 05:12 Lactic Acid 2.4 mmol/L (0.5-2.2) H 01/10/19 00:14 Calcium 8.4 mg/dL (8.6-10.3) L 01/16/19 05:12 Venous Ioniz Calcium 1.08 mmol/L (1.15-1.35) L 01/11/19 04:14 Phosphorus 6.0 mg/dL (2.7-4.5) H 01/14/19 09:10 AST 9 Units/L (13-39) L 01/12/19 11:21 B-Natriuretic Peptide 300 pg/mL (Less than 100) H 01/09/19 15:18 4.4 g/dL (6.4-8.9) L 01/12/19 11:21 2.3 g/dL (3.5-5.7) L 01/12/19 11:21 2.1 g/dL (2.4-3.5) L 01/12/19 11:21 8.4 mg/dL (17.0-34.0) L 01/10/19 04:15 Triglycerides 179 mg/dL (< 150) H 01/10/19 04:15 6 Units/L (11-82) L 01/07/19 08:46 2.14 ng/mL (0.00-0.15) H 01/16/19 16:09 Cloudy (Clear) A 01/07/19 11:03 Ur Leukocyte Esterase Moderate (Negative) H 01/07/19 11:03 3-5 per hpf (0-3) H 01/07/19 11:03 50-100 per hpf (0-3) H 01/07/19 11:03 Ur Squamous Epith Cells Many per lpf (None-Few) H 01/07/19 11:03 Many per hpf (None-Few) H 01/07/19 11:03 Ur Culture Indicated? YES (NO) A 01/07/19 11:03 Diabetes panel 01/16/19 Range/Units 05:12 Sodium 137 (136-145) mEq/L Potassium 4.3 (3.5-5.1) mEq/L Chloride 108 H (98-107) mEq/L Carbon Dioxide 20 L (23-29) mEq/L BUN 53 H (8-23) mg/dL Creatinine 1.28 (0.70-1.30) mg/dL Glucose 190 H (70-105) mg/dL Calcium 8.4 L (8.6-10.3) mg/dL Triglycerides 143 (< 150) mg/dL Calcium panel 01/16/19 Range/Units 05:12 Calcium 8.4 L (8.6-10.3) mg/dL Phosphorus 3.5 (2.7-4.5) mg/dL Pituitary panel 01/16/19 Range/Units 05:12 Sodium 137 (136-145) mEq/L Potassium 4.3 (3.5-5.1) mEq/L Chloride 108 H (98-107) mEq/L Carbon Dioxide 20 L (23-29) mEq/L BUN 53 H (8-23) mg/dL Creatinine 1.28 (0.70-1.30) mg/dL Glucose 190 H (70-105) mg/dL Calcium 8.4 L (8.6-10.3) mg/dL Adrenal panel 01/16/19 Range/Units 05:12 Sodium 137 (136-145) mEq/L Potassium 4.3 (3.5-5.1) mEq/L Chloride 108 H (98-107) mEq/L Carbon Dioxide 20 L (23-29) mEq/L BUN 53 H (8-23) mg/dL Creatinine 1.28 (0.70-1.30) mg/dL Glucose 190 H (70-105) mg/dL Calcium 8.4 L (8.6-10.3) mg/dL All other labs normal. Consult Discharge Plan - Plan Referrals: Ranjit Rodriguez MD [Primary Care Provider] -
[2019-01-16] MEDS: Latanoprost 2.5 ML BOTTLE RIGHT EYE SCH (21:37)
[2019-01-17] MEDS: Acetaminophen IV 1,000 MG/100 ML INFUS..BTL IVPB SCH ×2 (01:15→05:52)
[2019-01-17] MEDS: MetroNIDAZOLE 500 MG/100 ML 500 MG/100 ML BAG IVPB SCH ×3 (01:41→17:09)
[2019-01-17] MEDS: Insulin LISPRO 300 UNITS/3 ML VIAL SQ SCH ×6 (01:43→22:05)
[2019-01-17] MEDS: Levalbuterol Neb 1.25 MG/3 ML IH SCH ×3 (03:34→10:51)
[2019-01-17] MEDS ORDERED: *HR* Promethazine 25 MG/ML VIAL IVP PRN (03:43)
[2019-01-17] MEDS ORDERED: Ketorolac 15 MG/ML VIAL IVP ONE (03:56)
[2019-01-17] MEDS ORDERED: levoFLOXacin 750 MG/150 ML 750 MG/150 ML BAG IVPB SCH (04:00)
[2019-01-17 04:56] LABS: Hematocrit 25.9 % (37.5-50.1); Hemoglobin 7.9 g/dL (12.9-16.9); Mean Corpuscular HGB Conc 30.5 g/dL (31.6-35.5); Mean Corpuscular Hemoglobin 27.2 pg (28.0-33.3); Mean Corpuscular Volume 89.3 fL (83.0-100.0); Mean Platelet Volume 11.8 fL (9.4-12.4); Nucleated Red Blood Cells 0.2 /100 WBC (0); Platelet Count 252 K/mcL (140-400); Red Cell Distribution Width 18.8 % (11.5-14.5); White Blood Count 15.2 K/mcL (4.3-11.1)
[2019-01-17 05:07] LABS: BUN/Creatinine Ratio 43 (6-26); Blood Urea Nitrogen 51 mg/dL (8-23); Calcium 8.1 mg/dL (8.6-10.3); Carbon Dioxide 19 mEq/L (23-29); Chloride 112 mEq/L (98-107); Glucose 150 mg/dL (70-105); Magnesium 2.1 mg/dL (1.6-2.6); Osmolality,Calculated 305 (280-300); Phosphorous 3.5 mg/dL (2.7-4.5); Potassium 4.2 mEq/L (3.5-5.1); Sodium 139 mEq/L (136-145); eGFR For African Americans > 60 (> 60); eGFR For Non-African Americans 59 (> 60)
--- NOTE | 2019-01-17 05:21 | Event Note ---
Date of Encounter: 01/16/19 Time of Encounter: 20:14 Alerted by patient's nurse CORETTA Sherman that patient's imaging which included CT of the abdomen/pelvis, CT of the chest, head CT, and neck CT were resulted in [facility] had called to discuss the results with her. Irregular findings on imaging were found and patient's family requested that I come and review them. Went to see patient who is resting in bed. Patient appears pale, fatigue, and mildly dyspneic. Patient had surgical intervention on 01/07 for stenosis of colostomy which was more extensive than anticipated. I explained the CT of the abdomen/pelvis showed fluid collections in the abdomen and pelvis which may suggest developing infection. WBC has increased from 11.5-15.1. CT also showed mild small bowel dilation likely related to ileus. Chest CT showed bilateral pleural effusions, greater on the left, and possible pneumonia. Head CT showed no acute abnormality, and neck CT showed no acute abnormality. I explained to the patient and family that patient would be watched closely for sepsis criteria which he is not currently meeting. Stat lactic was ordered which returned at 1.2. Patient is currently on cefepime, Flagyl, and vancomycin. Pt. is currently receiving IVPB Ofirmev for pain but is experiencing breakthrough pain. I made pt. NPO d/t ileus and held tube feeds and free water for now. D/t contraindication, SQ heparin DCd and IVP Toradol ordered for breakthrough pain. SCDs ordered for DVT prophylaxis. Alerted by nurse at 03:19 the patient's abdominal cultures came back positive for gram-positive cocci. IVPB Levaquin 750 mg daily ordered to start now to cover gram-positive cocci as well as pneumonia. Discussed this antibiotic with pharmacy due to patient's recent renal dysfunction and recommendation was for 750 mg daily with current GFR and creatinine. WBC this a.m. is now 15.2. Went back to see the pt. and family and explained the changes in orders which they expressed understanding and agreement to. Nurse instructed to continue monitoring patient very closely and alert me immediately of any adverse changes.
[2019-01-17 05:36] LABS: Lymphocytes # 1.5 K/mcL (0.6-4.6); Monocytes # 0.6 K/mcL (0.0-1.3); Neutrophils # 13.1 K/mcL (1.6-8.9)
[2019-01-17 05:37] LABS: Platelet Estimate Normal (Normal)
[2019-01-17] MEDS: Cefepime HCl 2,000 MG in Water for inj. (sterile) 20 ML IVP SCH ×2 (05:53→17:10)
[2019-01-17] MEDS ORDERED: EPINEPHrine 1 MG/ML VIAL IM PRN (08:30)
[2019-01-17] MEDS ORDERED: methylPREDNISolone 125 MG/2 ML VIAL IVP PRN (08:30)
[2019-01-17] MEDS ORDERED: Amoxicillin Susp 250 MG/5 ML MLS PO ONE (08:30)
[2019-01-17] MEDS ORDERED: 0.9 % Sodium Chloride 10 ML PF VIAL TP ONE (08:30)
[2019-01-17] MEDS ORDERED: Penicillin test 1000 units/0.1 ml TP ONE (08:30)
[2019-01-17] MEDS ORDERED: Amoxicillin Susp 250 MG/5 ML UDC PO ONE (08:30)
[2019-01-17] MEDS ORDERED: Famotidine 20 MG/2 ML VIAL IVP PRN (08:30)
[2019-01-17] MEDS ORDERED: Penicillin test 1000 units/0.1 ml ID ONE (08:30)
--- NOTE | 2019-01-17 08:52 | Infectious Disease Progress No ---
ID Progress Note Date of Encounter: 01/17/19 Time of Encounter: 09:45 - Subjective Subjective: The patient is resting in bed at time of examination. Dr. Nixon is at bedside completing allergy testing when I do examine the patient. He says that he is feeling short of breath today and he does have some cough however not significant amounts. He does have the shortness of breath is worse than it was yesterday. He had no other acute complaints overnight. He is not feeling sign ificantly better or worse than he was yesterday. - Objective CBC & Chem 7: 01/19/19 03:44 01/19/19 03:44 - Exam Vitals: Temp Pulse Resp BP Pulse Ox 98.5 F 82 22 129/71 93 01/17/19 08:02 01/17/19 08:02 01/17/19 08:02 01/17/19 08:02 01/17/19 08:02 Exam: Gen: Vitals noted. No acute distress. Eyes: anicteric sclerae, moist conjunctivae; no lid-lag; Pupils equal and reactive to light HENT: Atraumatic; oropharynx clear very dry mucous membranes and tongue; Voice is quite hoarse and somewhat garbled Neck: Trachea midline; supple, no thyromegaly or lymphadenopathy Cardiac: RRR, I did think that I heard a faint flow murmur however this did resolve with deep inspiration, +S1/S2 Pulmonary: Scattered wheezes heard throughout however significantly more so on the right than the left. No rhonchi noted rales Abdomen: soft, somewhat tender to palpation, no guarding. No masses or hepatospl enomegaly. There is dressing in place over the site of prior operation. PEG tube in place with purulent yellow-green drainage surrounding however otherwise healthy-appearing skin MSK: ROM intact, no joint swelling noted Extremities: 1+ BLE edema, nontender calf, no cyanosis or clubbing Skin: Normal temperature, turgor and texture; no rash, ulcers or subcutaneous nodules Neuro: moves all extremities, no focal deficits. Psych: Appropriate mood and behavior. A&Ox3 - Assessment and Plan (1) Sepsis Current Visit: Yes Status: Acute Sepsis, etiology uncertain at this time SIRS criteria: WBC 15.1 (Bands 22), T100.4, RR 25. Possible source: Surgical site infection vs. aspiration pna Patient presented colostomy dysfunction and obstruction as well as ischemia on 01/07/19 CT abdomen/pelvis 01/07/19 demonstrated wall thickening and inflammatory changes involving the descending colon to the level of the ostomy suggestive of residual infectious versus inflammatory colitis CT Chest 01/16 shows bilateral pleural effusions with associated dependent upper and lower lobe airspace disease including consolidation, atelectasis and/or pna CT Abd/pelv 01/16 small peritoneal air possibly post-surgical, mild small bowel loops, gas within the nondependent urinary bladder which may relate due to recent instrumentation Although the patient initially seemed to be improving, is evidence for sepsis is rising again later in his stay The patient only developed a bandemia 01/15/19, and it continues to rise. Toxic granulations also are present Additionally, physical exam demonstrates purulent drainage around PEG tube Allergy testing was unsuccessful because patient did not react to control Family complains of confusion and changes in mental status Lactic acid 5.5 (01/09) -> 2.4 (01/10) ESR >130 CRP 167 Cultures 01/09/19 blood cultures negative 2 01/07/19 urine cultures negative Antibiotics Cefepime 2 g IV every 12 hours day 8 (renally adjusted) Metronidazole 500 mg IV every 8 hours day 8 Recommendations -Add fluconazole, 800mg IV today, then 400mg IV daily -Aspiration pneumonia is on differential considering hoarse voice and failed swallow eval. -Patient was apparently underdosed on cefepime over the weekend -We will continue cefepime and Flagyl at the correct renal doses -Add vancomycin for MRSA coverage -Goal trough 15 -Repeat blood cultures, wound cultures + gram stain -Check procalcitonin, inflammatory markers -Consult to Allergy/immunology for penicillin allergy testing Qualifiers: Sepsis type: Streptococcus, other Qualified Code(s): A40.8 - Other streptococcal sepsis SNOMED Code(s): 25275334 (2) Colostomy dysfunction Current Visit: Yes Status: Resolved Colostomy dysfunction requiring operative lysis of adhesions and repair Possible surgical site infection as source of sepsis Management per surgical team SNOMED Code(s): 48967421 (3) Dysphagia Current Visit: Yes Status: Acute Dysphagia, patient has failed modified barium swallow Unknown cause of patient's dysphagia at this time Although it is possible that the patient has damaged her vocal cords due to intubation, he has not been investigated Additionally, the patient's family says that he has also been confused CT Soft tissue neck was unrevealing for cause Discussed with primary team, defer treatment to them Because of dysphagia, consider aspiration pneumonia as source of infection MBS today Qualifiers: Dysphagia type: oropharyngeal phase Qualified Code(s): R13.12 - Dysphagia, oropharyngeal phase SNOMED Code(s): 45579837, 736433522 (4) Abdominal pain Current Visit: Yes Status: Acute Abdominal pain, secondary to colostomy dysfunction Management per primary team and acute care surgery Qualifiers: Abdominal location: generalized Qualified Code(s): R10.84 - Generalized abdominal pain SNOMED Code(s): 20150580 (5) Acute kidney injury superimposed on CKD Current Visit: Yes Status: Acute TONO on CKD3 Patient presented with elevated serum creatinine which worsened during stay Seems to be resolving at this time, however will continue to monitor as we will be starting the patient on Vancomycin SNOMED Code(s): 75343349 (6) Atrial fibrillation Current Visit: Yes Status: Chronic Management per primary team Qualifiers: Atrial fibrillation type: paroxysmal Qualified Code(s): I48.0 - Paroxysmal atrial fibrillation SNOMED Code(s): 75966479 (7) Diabetes Current Visit: Yes Status: Acute On home insulin Management per primary team Qualifiers: Diabetes mellitus type: type 2 Diabetes mellitus medical terminologist insulin use: without senior care use Diabetes mellitus complication status: without complication Qualified Code(s): E11.9 - Type 2 diabetes mellitus without complications SNOMED Code(s): 68992249 (8) Hydronephrosis, left Current Visit: No Status: Chronic Chronic, has payton catheter SNOMED Code(s): 52378741 Consult Discharge Plan - Plan Referrals: Ranjit Rodriguez MD [Primary Care Provider] - - Attending Attestation I examined this patient and my medical decision-making was reviewed with the Resident Physician. I agree with the documented findings, disposition and treatment plan as described except to the extent set forth below. Assessment and plan: 1.Sepsis 2.Colostomy dysfunction 3.Dysphagia 4.Confusion 5.Encephalopathy 6.Abdominal pain 7.Concern for aspiration pneumonia 8.Diabetes mellitus type 2 9.Atrial fibrillation 10.Acute kidney injury Recommendations CT chest abdomen pelvis reviewed: There are multiple focal fluid collections within the abdomen and pelvis which could be postsurgical. Correlation for developing infection is recommended. Wall thickening of the distal esophagus, some loops of small bowel, as well as possibly the stomach. Correlation for infection or inflammation is recommended. Discussed with the surgery team. I went over the CT scan with the surgery resident -Add fluconazole, 800mg IV today, then 400mg IV daily -Aspiration pneumonia is on differential considering hoarse voice and failed swallow eval. -Patient was apparently underdosed on cefepime over the weekend -We will continue cefepime and Flagyl at the correct renal doses -Add vancomycin for MRSA coverage -Goal trough 15 -Repeat blood cultures, wound cultures + gram stain -Check procalcitonin, inflammatory markers -Consult to Allergy/immunology for penicillin allergy testing. Discussed with Dr. nixon
--- NOTE | 2019-01-17 09:38 | AcuteCareSurgery Progress Note ---
<Rogelio Causey - Last Filed: 01/17/19 16:31> Date of Encounter: 01/17/19 Objective Vital Signs - Last 8 Hours Temp Pulse Resp BP Pulse Ox 01/17/19 15:09 98.1 F 79 24 118/62 95 01/17/19 14:36 98.2 F 78 20 115/61 01/17/19 14:21 98.2 F 78 20 114/62 93 01/17/19 12:04 97.6 F 83 120/68 94 01/17/19 10:51 18 94 Intake and Output 01/17/19 01/17/19 01/17/19 07:59 15:59 23:59 Intake Total 100 / 630 410 / 630 120 / 630 Output Total 1200 / 1250 50 / 1250 Balance -1100 / -620 360 / -620 120 / -620 Intake: IV Fluids 100 / 320 100 / 320 120 / 320 Maxipime 2,000 MG In Water for inj. (sterile) 20 ML @ 300 mls/ hr IVP Q12H [facility] Rx#:[id number] Ofirmev 1,000 mg/100 ml 1,000 100 / 100 mg In 100 ml @ 400 mls/hr IVPB Q6HR [facility] Rx#:[id number] Flagyl Premix 500 MG/100 ML 500 100 / 200 100 / 200 mg In 100 ml @ 100 mls/hr IVPB Q8HR [facility] Rx#:[id number] Oral 0 / 0 Blood Product 250 / 250 Rbcs Leuko Poor As-1 Unit 250 / 250 [id number] Free Water Intake Amount 60 / 60 Output: Urine 250 / 250 Stool 950 / 950 Other 50 / 50 Other: Stool Size Moderate Stool Consistency loose liquid Stool Color Brown # Bowel Movements 1 Blood Glucose* 172 171 - Labs 01/17/19 04:20 01/17/19 04:20 Diabetes panel 01/17/19 Range/Units 04:20 Sodium 139 (136-145) mEq/L Potassium 4.2 (3.5-5.1) mEq/L Chloride 112 H (98-107) mEq/L Carbon Dioxide 19 L (23-29) mEq/L BUN 51 H (8-23) mg/dL Creatinine 1.20 (0.70-1.30) mg/dL Glucose 150 H (70-105) mg/dL Calcium 8.1 L (8.6-10.3) mg/dL Calcium panel 01/17/19 Range/Units 04:20 Calcium 8.1 L (8.6-10.3) mg/dL Phosphorus 3.5 (2.7-4.5) mg/dL Pituitary panel 01/17/19 Range/Units 04:20 Sodium 139 (136-145) mEq/L Potassium 4.2 (3.5-5.1) mEq/L Chloride 112 H (98-107) mEq/L Carbon Dioxide 19 L (23-29) mEq/L BUN 51 H (8-23) mg/dL Creatinine 1.20 (0.70-1.30) mg/dL Glucose 150 H (70-105) mg/dL Calcium 8.1 L (8.6-10.3) mg/dL Adrenal panel 01/17/19 Range/Units 04:20 Sodium 139 (136-145) mEq/L Potassium 4.2 (3.5-5.1) mEq/L Chloride 112 H (98-107) mEq/L Carbon Dioxide 19 L (23-29) mEq/L BUN 51 H (8-23) mg/dL Creatinine 1.20 (0.70-1.30) mg/dL Glucose 150 H (70-105) mg/dL Calcium 8.1 L (8.6-10.3) mg/dL Consult Discharge Plan - Plan Referrals: Ranjit Rodriguez MD [Primary Care Provider] - - Attending Attestation I examined this patient and my medical decision-making was reviewed with the Resident Physician. I agree with the documented findings, disposition and treatment plan as described except to the extent set forth below. I reviewed the above assessment and evaluation and agree with the above plan. Since patient has failed the swallow evaluation we will initiate G-tube feeds (was supposed to be initiated yesterday) sees. We will continue to watch ostomy output and midline incision. <Lu Calix - Last Filed: 01/17/19 16:44> Date of Encounter: 01/17/19 Time of Encounter: 09:35 - Assessment and Plan (1) Colon obstruction Current Visit: Yes Status: Acute Presents with stenosis of the orifice of his colostomy. Has been dilated twice in the past month, currently unable to fit tip of finger into ostomy. 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 CT abdomen and pelvis 01/16/19-small to moderate amount of free intraperitoneal air in the upper abdomen which could be related to recent surgery. Multiple focal fluid collections within the abdomen and pelvis which could be postsurgical, correlate for developing infection, wall thickening of distal esophagus some loops of small bowel and possibly the stomach. Mild small bowel dilation likely related to ileus without sharp transition of caliber, and gas within the nondependent urinary bladder. Status post laparotomy with lysis of adhesions, unavoidable enterotomy, takedown colostomy, left colon resection, transverse colostomy, small bowel resection with primary anastomosis day 9 Patient had some worsening of his leukocytosis yesterday, leukocytosis remains e levated at 15.2. CT abdomen and pelvis did reveal multiple focal fluid collections within the abdomen and pelvis. Possibly postsurgical versus infectious. Patient to continue medical management with antibiotic coverage at this time and continue to assess for clinical improvement. Antibiotic coverage-cefepime, Flagyl, vancomycin Further infectious disease recommendations pending. CT revealed some mild small bowel dilation, likely related to ileus however he continues to have output of colostomy. Patient to continue TPN, to initiate tube feeds. G-tube to be clamped in between tube feeds. Patient failed swallow evaluation Continue wound care, daily dressing changes Continue to monitor for stool, urine output, electrolytes to be repleted as necessary Incentive spirometry as able (2) Sepsis Current Visit: Yes Status: Acute Secondary to ischemic bowel versus pneumonia CT chest performed yesterday revealed bilateral pleural effusions, greater on the left with dependent upper and lower airspace disease including cons olidation, atelectasis and/or pneumonia. CT abdomen performed yesterday reveals multiple fluid collections in the abdomen which could be postsurgical versus infectious Leukocytosis increased yesterday to 15.1, currently 15.2 Antibiotic coverage currently includes cefepime, Flagyl, vancomycin Further infectious disease recommendations pending Management per primary Qualifiers: Sepsis type: sepsis due to unspecified organism Qualified Code(s): A41.9 - Sepsis, unspecified organism (3) Hypotension Current Visit: Yes Status: Resolved Resolved Secondary to sepsis due to ischemic bowel Qualifiers: Hypotension type: unspecified hypotension type Qualified Code(s): I95.9 - Hypotension, unspecified (4) Anemia Current Visit: Yes Status: Acute Hemoglobin has stabilized No signs of active bleeding Management per primary Qualifiers: Anemia type: unspecified type Qualified Code(s): D64.9 - Anemia, unspecified (5) Atrial fibrillation Current Visit: Yes Status: Chronic Management per primary Qualifiers: Atrial fibrillation type: paroxysmal Qualified Code(s): I48.0 - Paroxysmal atrial fibrillation (6) TONO (acute kidney injury) Current Visit: Yes Status: Acute Continues to improve Patient sustained TONO, secondary to hypotension, sepsis Renally dose medications and try to avoid nephrotoxic agents (7) T2DM (type 2 diabetes mellitus) Current Visit: Yes Status: Chronic Currently on TPN Currently on basal and sliding scale insulin Management per primary Qualifiers: Diabetes mellitus long term care pharmacist insulin use: with long term care pharmacist use Diabetes mellitus complication status: with hyperglycemia Qualified Code(s): E11.65 - Type 2 diabetes mellitus with hyperglycemia; Z79.4 - technician terminal and repeater (current) use of insulin (8) DVT prophylaxis Current Visit: Yes Status: Acute SCDs Subjective Narrative: Patient seen and examined at bedside today. He was transferred out of the ICU. He is awake, alert and oriented 3. He states that he does have some shortness of breath, cough and chills he states that he is currently not having any abd ominal pain. His midline incision appears clean, intact, scant drainage on dressing. He continues to have output into colostomy. Objective Vital Signs - Last 8 Hours Temp Pulse Resp BP Pulse Ox 01/17/19 08:02 98.5 F 82 22 129/71 93 01/17/19 03:42 98.9 F 88 25 123/62 95 01/17/19 03:37 22 93 Intake and Output 01/16/19 01/17/19 01/17/19 23:59 07:59 15:59 Intake Total 220 / 890 100 / 100 Output Total 200 / 1255 1200 / 1250 50 / 1250 Balance 20 / -365 -1100 / -1150 -50 / -1150 Intake: IV Fluids 220 / 890 100 / 100 Maxipime 2,000 MG In Water for 20 / 40 inj. (sterile) 20 ML @ 300 mls/ hr IVP Q12H [facility] Rx#:[id number] Ofirmev 1,000 mg/100 ml 1,000 100 / 300 100 / 100 mg In 100 ml @ 400 mls/hr IVPB Q6HR [facility] Rx#:[id number] Flagyl Premix 500 MG/100 ML 500 100 / 300 mg In 100 ml @ 100 mls/hr IVPB Q8HR [facility] Rx#:[id number] Output: Urine 200 / 200 250 / 250 Stool 950 / 950 Other 50 / 50 Other: Stool Size Moderate Stool Consistency loose liquid Stool Color Brown # Bowel Movements 1 Blood Glucose* 138 172 157 - General physical appearance no distress, no pain - Eyes PERRL, normal ocular movement - ENT normal mucosa, no congestion - Neck Neck exam: trachea midline, no venous distension - Respiratory normal expansion, normal respiratory effort, other (Bilateral rhonchi, worse on the left) - Cardiovascular Cardiovascular exam: Present: RRR, no murmurs/rubs/gallops. Absent: JVD - Abdomen Abdomen: Present: bowel sounds present, soft, non tender, distended (Mild) - Incision Incision: Present: clean and dry, intact (Some scant drainage noted on dressing, not erythematous, no induration. G-tube in place, some gastric drainage noted around tube) - Integumentary no abnormal pigmentation - Neurologic CN 2-12 grossly intact, normal coordination, normal sensation - Musculoskeletal normal posture - Psychiatric oriented to time, oriented to person, oriented to place, other (Continues to have some muffled speech) - Labs 01/17/19 04:20 01/17/19 04:20 Diabetes panel 01/17/19 Range/Units 04:20 Sodium 139 (136-145) mEq/L Potassium 4.2 (3.5-5.1) mEq/L Chloride 112 H (98-107) mEq/L Carbon Dioxide 19 L (23-29) mEq/L BUN 51 H (8-23) mg/dL Creatinine 1.20 (0.70-1.30) mg/dL Glucose 150 H (70-105) mg/dL Calcium 8.1 L (8.6-10.3) mg/dL Calcium panel 01/17/19 Range/Units 04:20 Calcium 8.1 L (8.6-10.3) mg/dL Phosphorus 3.5 (2.7-4.5) mg/dL Pituitary panel 01/17/19 Range/Units 04:20 Sodium 139 (136-145) mEq/L Potassium 4.2 (3.5-5.1) mEq/L Chloride 112 H (98-107) mEq/L Carbon Dioxide 19 L (23-29) mEq/L BUN 51 H (8-23) mg/dL Creatinine 1.20 (0.70-1.30) mg/dL Glucose 150 H (70-105) mg/dL Calcium 8.1 L (8.6-10.3) mg/dL Adrenal panel 01/17/19 Range/Units 04:20 Sodium 139 (136-145) mEq/L Potassium 4.2 (3.5-5.1) mEq/L Chloride 112 H (98-107) mEq/L Carbon Dioxide 19 L (23-29) mEq/L BUN 51 H (8-23) mg/dL Creatinine 1.20 (0.70-1.30) mg/dL Glucose 150 H (70-105) mg/dL Calcium 8.1 L (8.6-10.3) mg/dL
--- NOTE | 2019-01-17 10:18 | Allergy Progress Note ---
Date of Encounter: 01/17/19 Time of Encounter: 08:45 Subjective Narrative: Patient reports that he did not sleep well overnight. He feels unchanged from yesterday. He is still having mild shortness of breath. He is ready to do the penicillin testing today Objective Vital Signs - Last 8 Hours Temp Pulse Resp BP Pulse Ox 01/17/19 08:02 98.5 F 82 22 129/71 93 01/17/19 03:42 98.9 F 88 25 123/62 95 01/17/19 03:37 22 93 Intake and Output 01/16/19 01/17/19 01/17/19 23:59 07:59 15:59 Intake Total 220 / 890 100 / 200 100 / 200 Output Total 200 / 1255 1200 / 1250 50 / 1250 Balance 20 / -365 -1100 / -1050 50 / -1050 Intake: IV Fluids 220 / 890 100 / 200 100 / 200 Maxipime 2,000 MG In Water for 20 / 40 inj. (sterile) 20 ML @ 300 mls/ hr IVP Q12H D[facility] Rx#:[id number] Ofirmev 1,000 mg/100 ml 1,000 100 / 300 100 / 100 mg In 100 ml @ 400 mls/hr IVPB Q6HR DANK Rx#:[id number] Flagyl Premix 500 MG/100 ML 500 100 / 300 100 / 100 mg In 100 ml @ 100 mls/hr IVPB Q8HR DANK Rx#:[id number] Output: Urine 200 / 200 250 / 250 Stool 950 / 950 Other 50 / 50 Other: Stool Size Moderate Stool Consistency loose liquid Stool Color Brown # Bowel Movements 1 Blood Glucose* 138 172 157 - Additional Exam Constitutional: alert, in no acute distress Head: Normocephalic, atraumatic Eyes:normal, conjunctiva clear Ears:Tympanic membrane normal bilaterally, canals clear bilaterally Nose: Nares patent, no drainage Mouth: Dry mucous membranes, white plaques on palate and posterior pharnyx Neck: Supple, no lymphadenopathy noted Heart: regular rate and rhythm Lungs:clear to auscultation bilaterally, no respiratory distress, no retractions, no wheezing Skin: no rashes, bandages in place - Labs 01/17/19 04:20 01/17/19 04:20 Diabetes panel 01/17/19 Range/Units 04:20 Sodium 139 (136-145) mEq/L Potassium 4.2 (3.5-5.1) mEq/L Chloride 112 H (98-107) mEq/L Carbon Dioxide 19 L (23-29) mEq/L BUN 51 H (8-23) mg/dL Creatinine 1.20 (0.70-1.30) mg/dL Glucose 150 H (70-105) mg/dL Calcium 8.1 L (8.6-10.3) mg/dL Calcium panel 01/17/19 Range/Units 04:20 Calcium 8.1 L (8.6-10.3) mg/dL Phosphorus 3.5 (2.7-4.5) mg/dL Pituitary panel 01/17/19 Range/Units 04:20 Sodium 139 (136-145) mEq/L Potassium 4.2 (3.5-5.1) mEq/L Chloride 112 H (98-107) mEq/L Carbon Dioxide 19 L (23-29) mEq/L BUN 51 H (8-23) mg/dL Creatinine 1.20 (0.70-1.30) mg/dL Glucose 150 H (70-105) mg/dL Calcium 8.1 L (8.6-10.3) mg/dL Adrenal panel 01/17/19 Range/Units 04:20 Sodium 139 (136-145) mEq/L Potassium 4.2 (3.5-5.1) mEq/L Chloride 112 H (98-107) mEq/L Carbon Dioxide 19 L (23-29) mEq/L BUN 51 H (8-23) mg/dL Creatinine 1.20 (0.70-1.30) mg/dL Glucose 150 H (70-105) mg/dL Calcium 8.1 L (8.6-10.3) mg/dL - Assessment and Plan (1) Adverse effect of penicillins, initial encounter Current Visit: Yes Status: Acute Written consent was obtained for penicillin testing and challenge. Penicillin testing was attempted however he did not respond to the histamine and I was unable to perform the test. I put 2 histamines on and observed but he did not respond. I explained to patient and infectious disease that I will try again tomorrow morning. If patient reacts to histamine tomorrow and penicillin testing is negative I will not be able to perform graded oral challenge to amoxicillin as he is on restrictions for anything by mouth. I discussed with pharmacy and affects his disease that if his testing is negative I would recommend a graded Zosyn challenge. He would start with 1/100th of a dose, then after 30 minutes he would do 1/10th of dose and if tolerates he would then do full dose. If the penicillin testing is negative the risk of this challenge is very low as his reaction was to penicillin years ago not amoxicillin. 1 hour was spent with patient with greater than 50% of times spent on counseling and coordination of care. Qualifiers: Encounter type: initial encounter Qualified Code(s): T36.0X5A - Adverse effect of penicillins, initial encounter (2) Allergy status to penicillin Current Visit: Yes Status: Acute Consult Discharge Plan - Plan Referrals: Ranjit Rodriguez MD [Primary Care Provider] -
[2019-01-17] MEDS: Pantoprazole 40 MG VIAL IVP SCH (10:29)
[2019-01-17] MEDS: *HR* Amiodarone 200 MG TABLET PO SCH (10:30)
[2019-01-17] MEDS: Dorzolamide/Timolol 1 DROP RIGHT EYE SCH ×2 (10:30→22:13)
[2019-01-17] MEDS: Insulin DETEMIR 100 UNIT/ML X5UNITS SQ SCH ×2 (10:30→22:13)
--- NOTE | 2019-01-17 11:45 | Internal Med Progress Note ---
Hospitalist Progress Note - Encounter Date of Encounter: 01/17/19 Time of Encounter: 09:45 - Subjective Interval History: Pt feels unchanged. Has slight SOB with O2 saturation in the low 90s hence was placed on NC. Otherwise, no worsening abdominal pain, chest pain, palpitation, or LE edema. Temp of 99.8 x 2 overnight. - Exam Vitals: Temp Pulse Resp BP Pulse Ox 98.5 F 82 22 129/71 93 01/17/19 08:02 01/17/19 08:02 01/17/19 08:02 01/17/19 08:02 01/17/19 08:02 Exam: General: Alert and oriented, not in acute distress Cardiovascular:Normal S1 & S2, No JVD. Pulse regular. Lungs: mild scattered rhonchi bilaterally Abdomen:Soft, pink stoma noted. L sided abdominal dressing at the time of exam was c/d/i Extremities:No deformity or swelling Neurological:Normal cognition and motor skills. Non-focal - Assessment and Plan (1) Sepsis Current Visit: Yes Status: Acute Assessment and Plan: Patient was initially admitted for colostomy dysfunction and underwent extensive intra-abdominal surgery on 01/08 involving 4 hours of adhesiolysis, takedown colostomy and L colon resection, transverse colostomy, and SB resection wth primary anastomosis complicated by shock post-operatively, likely due to sepsis and hypovolemia. Also had lactic acidosis of 5.5 required brief vasopressor support, d/nicholas on 01/11 BP normalized but pt is noted to have worsening leukocytosis and bandemia despite being on Cefepime/flagyl (D9 today) ESR > 130, CRP 167, procal 2.14 after discussing with ID and Surgery, CT scan from head to pelvis was performed which showed consolidative changes as well as multiple focal fluid collections discussed the finding with surgery, likely to represent post-surgical changes but would speak to ID regarding adding anti-fungal agent IV Vanc was added per ID on 01/16, appreciate ID input bld c/s 01/09 -ve, 01/16 NGTD (2) Acute respiratory failure with hypoxia Current Visit: Yes Status: Acute Assessment and Plan: developed mild SOB yesterday with new O2 requirement of 3L CT chest showed consolidative changes in the dependent area of upper/lower lobe bilaterally continue abx as above (3) Pneumonia Current Visit: Yes Status: Acute Assessment and Plan: abx as above will check urine strep/legionella ags (4) Anemia Current Visit: Yes Status: Acute Assessment and Plan: Hb on presentation was 13 -> now down to 7.9 in the post-op setting and severe illness FOBT +ve, however, no bloody output noted from both stoma or rectum Discussed with surgery in detail; given the recent extensive intra-abdominal op and questionable EKG changes that prompted cardiology consultation (although ACS was ruled out), would transfuse 1U pRBC and monitor H&H Since pt is hemodynamically stable, would consider further intervention if bloody output from stoma or rectum is noted. check iron profile (5) Acute on chronic renal insufficiency Current Visit: Yes Status: Resolved Assessment and Plan: improving, Cr back to baseline (6) Colostomy dysfunction Current Visit: Yes Status: Acute Assessment and Plan: s/p op on 01/08 as above on TPN currently, failed MBS yesterday discussed with surgery, consult to nutrition for tube feeding (7) Atrial fibrillation Current Visit: Yes Status: Chronic Assessment and Plan: hospital course was complicated by afib with RVR and diffuse ST changes on EKG serial troponins -ve, Echo showed preserved EF and no significant valvulopathy required amiodarone gtt -> now on PO Amiodarone but unable to take it due to NPO status and failed MBS will start IV lopressor 5mg Q6 scheduled appreciate cardiology input, hep gtt d/nicholas. Patient did not tolerate full AC previously as per outpatient records. Will resume aspirin 325mg when cleared by surgery and able to take by mouth (8) Essential hypertension Current Visit: No Status: Chronic Assessment and Plan: norvasc on hold (9) T2DM (type 2 diabetes mellitus) Current Visit: Yes Status: Chronic Assessment and Plan: continue basal bolus insulin DVT Prophylaxis: EPCD given anemia - Time Spent with Patient Total time spent is greater than 50% in coordination of care (as documented) at patient's floor/unit and/or counseling patient: Greater than 35 minutes Plan of Care Discussed with: patient (discussed with multiple family members in great detail) Internal Medicine: Result - Labs CBC & Chem 7: 01/17/19 04:20 01/17/19 04:20 Labs: Short CBC 01/17/19 Range/Units 04:20 WBC 15.2 H (4.3-11.1) K/mcL Hgb 7.9 L (12.9-16.9) g/dL Hct 25.9 L (37.5-50.1) % Plt Count 252 (140-400) K/mcL Neutrophils # 13.1 H (1.6-8.9) K/mcL BMP 01/17/19 04:20 Sodium 139 Potassium 4.2 Chloride 112 H Carbon Dioxide 19 L BUN 51 H Creatinine 1.20 Glucose 150 H Calcium 8.1 L - ABG Interpretation ABG results: PT/INR, D-dimer PT 15.5 Seconds (9.4-12.1) H 01/14/19 17:30 - Impressions Impressions Videofluoroscopic Swallow 01/16/19 12:00 IMPRESSION: 1. Aspiration with thin liquids. 2. Deep laryngeal penetration with nectar thick liquid and honey thick liquid. 3. Significant residue throughout oropharynx and hypopharynx after each swallow. 4. Apparent soft tissue swelling involving oropharynx and nasopharynx, which could contribute to dysphagia. Follow-up CT neck with contrast may be useful, if further imaging evaluation is clinically warranted. 5. Please see separate speech pathology report for full discussion of findings and recommendations. D/ / Don Beckman MD / Don Beckman MD Interpreting Provider: Don Beckman MD Abdomen/Pelvis CT 01/16/19 14:47 IMPRESSION: Small moderate amount of free intraperitoneal air in the upper abdomen which could be related to recent surgery. There are multiple focal fluid collections within the abdomen and pelvis which could be postsurgical. Correlation for developing infection is recommended. Wall thickening of the distal esophagus, some loops of small bowel, as well as possibly the stomach. Correlation for infection or inflammation is recommended. Mild small bowel dilation is likely related to ileus, without sharp transition of caliber suspected. Gas within the nondependent urinary bladder which may relate due to recent instrumentation. Correlation for infection is recommended. Findings of free intraperitoneal air were discussed with Whit Wilson RN at 7:40 pm on 01/16/2019.. The patient reportedly recently had surgery. D/ / Jovana Reese Cha, MD / Jovana Reese Cha, MD Interpreting Provider: Jovana Reese Cha, MD Chest CT 01/16/19 14:47 IMPRESSION: Bilateral pleural effusions, greater on the left, with associated dependent upper and lower lobe airspace disease including consolidation, atelectasis and/or pneumonia.. D/ / Jovana Reese Cha, MD / Jovana Reese Cha, MD Interpreting Provider: Jovana Reese Cha, MD Head CT 01/16/19 14:47 IMPRESSION: No acute intracranial abnormality. Cerebral atrophy. Mild chronic small vessel ischemic changes. D/ / 01/16/2019 18:58:36 Emma August MD / macrina Interpreting Provider: Emma August MD Soft Tissue Neck CT 01/16/19 14:47 IMPRESSION: No acute abnormality of the neck soft tissues or finding to suggest etiology of patient's symptoms, although evaluation is limited by residual ingested barium. D/ / Lamont Karimi / Lamont Karimi Interpreting Provider: Lamont Karimi Consult Discharge Plan - Plan Referrals: Ranjit Rodriguez MD [Primary Care Provider] - (1) Sepsis Qualifiers: Sepsis type: sepsis due to unspecified organism Qualified Code(s): A41.9 - Sepsis, unspecified organism (3) Pneumonia Qualifiers: Pneumonia type: due to unspecified organism Laterality: bilateral Lung location: lower lobe of lung Qualified Code(s): J18.1 - Lobar pneumonia, unspe cified organism (4) Anemia Qualifiers: Anemia type: unspecified type Qualified Code(s): D64.9 - Anemia, unspecified (7) Atrial fibrillation Qualifiers: Atrial fibrillation type: paroxysmal Qualified Code(s): I48.0 - Paroxysmal atrial fibrillation (9) T2DM (type 2 diabetes mellitus) Qualifiers: Diabetes mellitus undercutter insulin use: with jail use Diabetes mellitus complication status: with hyperglycemia Qualified Code(s): E11.65 - Type 2 diabetes mellitus with hyperglycemia; 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
[2019-01-17] MEDS: *HR* Metoprolol 5 MG/5 ML VIAL IVP SCH ×2 (13:14→17:10)
[2019-01-17] MEDS ORDERED: Ondansetron 4 MG/2 ML VIAL IVP PRN (13:22)
[2019-01-17] MEDS ORDERED: 0.9 % Sodium Chloride 250 ML ONE (13:58)
[2019-01-17] MEDS: Ipratropium/Albuterol Neb 3 ML IH SCH ×3 (15:51→23:09)
[2019-01-17] MEDS ORDERED: Furosemide 20 MG/2 ML VIAL IVP ONE (16:59)
[2019-01-17] MEDS ORDERED: Clinimix E 5%-15% SOLUTION 2,000 ML with MVI, adult with vitamin K 10 ML, Trace Eleme... IVC SCH (17:00)
[2019-01-17] MEDS: Fluconazole 400 MG/200 ML 400 MG/200 ML BAG IVPB SCH ×2 (17:09→22:14)
[2019-01-17 18:49] LABS: Hematocrit 28.7 % (37.5-50.1)
[2019-01-17] MEDS: Latanoprost 2.5 ML BOTTLE RIGHT EYE SCH (22:13)
[2019-01-18 00:45] LABS: ABG Base Excess -5 mEq/L (-2 to 3); ABG HCO3 17 mEq/L (21-27); ABG Oxygen Saturation 97 % (95-98); ABG PCO2 24 mmHg (35-45); ABG PH 7.47 pH Units (7.32-7.45); ABG PO2 80 mmHg (85-104); ABG TCO2 18 mEq/L (20-26)
[2019-01-18] MEDS: MetroNIDAZOLE 500 MG/100 ML 500 MG/100 ML BAG IVPB SCH ×4 (01:10→23:18)
[2019-01-18] MEDS: Insulin LISPRO 300 UNITS/3 ML VIAL SQ SCH ×6 (01:10→20:06)
[2019-01-18] MEDS: *HR* Metoprolol 5 MG/5 ML VIAL IVP SCH ×2 (01:11→05:26)
[2019-01-18] MEDS ORDERED: *HR* LORazepam 2 MG/ML VIAL IVP ONE (01:29)
[2019-01-18] MEDS ORDERED: traMADol 50 MG TABLET PO ONE (01:35)
[2019-01-18] MEDS: Cefepime HCl 2,000 MG in Water for inj. (sterile) 20 ML IVP SCH ×2 (05:26→17:06)
[2019-01-18] MEDS: Ipratropium/Albuterol Neb 3 ML IH SCH ×6 (05:30→23:18)
[2019-01-18 05:57] LABS: Hematocrit 27.4 % (37.5-50.1); Hemoglobin 8.6 g/dL (12.9-16.9); Mean Corpuscular HGB Conc 31.4 g/dL (31.6-35.5); Mean Corpuscular Hemoglobin 28.1 pg (28.0-33.3); Mean Corpuscular Volume 89.5 fL (83.0-100.0); Mean Platelet Volume 11.6 fL (9.4-12.4); Nucleated Red Blood Cells 0.1 /100 WBC (0); Platelet Count 291 K/mcL (140-400); Red Blood Count 3.06 M/mcL (4.19-5.50); Red Cell Distribution Width 18.9 % (11.5-14.5); White Blood Count 16.7 K/mcL (4.3-11.1)
[2019-01-18 06:20] LABS: Lymphocytes # 1.3 K/mcL (0.6-4.6); Neutrophils # 14.4 K/mcL (1.6-8.9); Platelet Estimate Normal (Normal)
[2019-01-18 06:21] LABS: Anisocytosis 1+ (Not Present); Polychromasia 1+ (Not Present)
[2019-01-18 06:22] LABS: Magnesium 2.2 mg/dL (1.6-2.6); Phosphorous 3.8 mg/dL (2.7-4.5)
[2019-01-18 06:24] LABS: BUN/Creatinine Ratio 41 (6-26); Blood Urea Nitrogen 54 mg/dL (8-23); Carbon Dioxide 19 mEq/L (23-29); Chloride 112 mEq/L (98-107); Glucose 135 mg/dL (70-105); Osmolality,Calculated 309 (280-300); Potassium 4.6 mEq/L (3.5-5.1); Sodium 141 mEq/L (136-145); eGFR For African Americans > 60 (> 60); eGFR For Non-African Americans 52 (> 60)
[2019-01-18 06:27] LABS: Iron < 10 mcg/dL (65-175); Transferrin 98 mg/dL (203-362)
[2019-01-18] MEDS ORDERED: Penicillin test 1000 units/0.1 ml ID ONE (06:30)
[2019-01-18] MEDS ORDERED: Amoxicillin Susp 250 MG/5 ML UDC PO ONE (06:30)
[2019-01-18] MEDS ORDERED: Amoxicillin Susp 250 MG/5 ML MLS PO ONE (06:30)
[2019-01-18] MEDS ORDERED: Penicillin test 1000 units/0.1 ml TP ONE (06:30)
[2019-01-18] MEDS ORDERED: TAZOBACTAM IVP PRN ×2 (07:00→07:02)
[2019-01-18] MEDS ORDERED: PIPERACILLIN IVP PRN ×2 (07:00→07:02)
[2019-01-18] MEDS ORDERED: WATER FOR INJ IVP PRN ×2 (07:00→07:02)
[2019-01-18] MEDS ORDERED: Piperacillin/Tazobactam 3.375 GM in 0.9 % Sodium Chloride Mini Bag 100 ML IVPB PRN (07:04)
--- NOTE | 2019-01-18 08:54 | AcuteCareSurgery Progress Note ---
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 The skin was closed in groups of 3 wilmar with iodoform packing in the open wound areas for wicking purposes. POD #10 as above. Pathology consistent with fat necrosis and serositis small bowel resection, the large: consistent with transmural defects consistent with enterotomy, superficial necrosis, adhesions and chronic inflammation. From a surgical standpoint, he is recovering as expected. Of note, he failed barium swallow and is tolerating tube feeds. He is having output in his ostomy. His abdomen is consistent with surgical procedure and packing per operative note. There is no evidence for concern for postoperative infection within the abdomen at this time. Plan: Continue supportive care and discomfort management Continue G.I. and DVT prophylaxis Incentive spirometry 10 times every hour while awake Out of bed to chair TID Activity as tolerated Apply ice 20 minutes on 20 minutes off as needed TF per nutrition May resume po when ok from swallow standpoint Daily dressing changes: Remove dressing and packing. Repack with mesalt ribbon. cover with a dry dressing. Tape to secure. Ostomy care (2) Sepsis Current Visit: Yes Status: Acute Management per primary team Qualifiers: Sepsis type: sepsis due to unspecified organism Qualified Code(s): A41.9 - Sepsis, unspecified organism (3) Colostomy dysfunction Current Visit: Yes Status: Resolved see above Subjective Patient reports: no new complaints, feels better, still having pain, pain is less, tolerating liquids well (per g-tube), voiding w/o difficulty, flatus, bowel movement (per ostomy), shortness of breath, afebrile Objective Vital Signs - Last 8 Hours Temp Pulse Resp BP Pulse Ox 01/18/19 07:32 18 97 01/18/19 07:05 98.3 F 83 24 161/71 91 01/18/19 05:31 20 98 01/18/19 01:29 99.6 F 80 21 129/73 98 Intake and Output 01/17/19 01/18/19 01/18/19 23:59 07:59 15:59 Intake Total 910 / 1420 60 / 60 Output Total 500 / 1750 150 / 150 Balance 410 / -330 -90 / -90 Intake: IV Fluids 440 / 640 Maxipime 2,000 MG In Water for 40 / 40 inj. (sterile) 20 ML @ 300 mls/ hr IVP Q12H DANK Rx#:[id number] Diflucan Premix 400 MG/200 ML 200 / 200 400 mg In 200 ml @ 100 mls/hr IVPB Q2H DANK Rx#:[id number] Flagyl Premix 500 MG/100 ML 500 200 / 300 mg In 100 ml @ 100 mls/hr IVPB Q8HR DANK Rx#:[id number] Oral 0 / 0 Blood Product 350 / 600 Rbcs Leuko Poor As-1 Unit 350 / 600 [id number] Free Water Intake Amount 120 / 180 60 / 60 Output: Urine 500 / 750 150 / 150 Other: # Urine Diapers 2 Blood Glucose* 130 126 - General physical appearance no distress, other (sitting upright in bed, Oxy-mask noted.) - ENT normal nares, normal mucosa, atraumatic, normocephalic - Neck Neck exam: trachea midline - Respiratory other (decreased course) - Cardiovascular Cardiovascular exam: Present: RRR - Abdomen Abdomen: Present: bowel sounds present, soft, tender (expected postoperative), wound (Stoma is pink and moist. G-tube site is unremarkable.) Hernia: none - Incision Incision: Present: intact (overall intact. Areas of packing with serous drainage., small amount of erythema, reactionary. No concern for infection) - Integumentary no rash - Neurologic normal sensation - Musculoskeletal normal posture - Psychiatric oriented to time, oriented to person, oriented to place, speech is normal - Labs 01/18/19 05:40 01/18/19 05:40 Diabetes panel 01/18/19 Range/Units 05:40 Sodium 141 (136-145) mEq/L Potassium 4.6 (3.5-5.1) mEq/L Chloride 112 H (98-107) mEq/L Carbon Dioxide 19 L (23-29) mEq/L BUN 54 H (8-23) mg/dL Creatinine 1.33 H (0.70-1.30) mg/dL Glucose 135 H (70-105) mg/dL Calcium 8.0 L (8.6-10.3) mg/dL Calcium panel 01/18/19 01/18/19 Range/Units 05:40 05:40 Calcium 8.0 L (8.6-10.3) mg/dL Phosphorus 3.8 (2.7-4.5) mg/dL Pituitary panel 01/18/19 Range/Units 05:40 Sodium 141 (136-145) mEq/L Potassium 4.6 (3.5-5.1) mEq/L Chloride 112 H (98-107) mEq/L Carbon Dioxide 19 L (23-29) mEq/L BUN 54 H (8-23) mg/dL Creatinine 1.33 H (0.70-1.30) mg/dL Glucose 135 H (70-105) mg/dL Calcium 8.0 L (8.6-10.3) mg/dL Adrenal panel 01/18/19 Range/Units 05:40 Sodium 141 (136-145) mEq/L Potassium 4.6 (3.5-5.1) mEq/L Chloride 112 H (98-107) mEq/L Carbon Dioxide 19 L (23-29) mEq/L BUN 54 H (8-23) mg/dL Creatinine 1.33 H (0.70-1.30) mg/dL Glucose 135 H (70-105) mg/dL Calcium 8.0 L (8.6-10.3) mg/dL Consult Discharge Plan - Plan Referrals: Ranjit Rodriguez MD [Primary Care Provider] - <Manuela Marcelo - Last Filed: 01/18/19 11:29> Date of Encounter: 01/18/19 - Assessment and Plan (1) Colon obstruction Current Visit: Yes Status: Acute (2) Colostomy dysfunction Current Visit: Yes Status: Resolved (3) Acute on chronic renal insufficiency Current Visit: Yes Status: Resolved (4) Diabetes Current Visit: Yes Status: Acute Qualifiers: Qualified Code(s): E11.9 - Type 2 diabetes mellitus without complications (5) ST segment changes on electrocardiogram Current Visit: Yes Status: Acute (6) Essential hypertension Current Visit: No Status: Chronic Objective Vital Signs - Last 8 Hours Temp Pulse Resp BP Pulse Ox 01/18/19 10:45 98.2 F 89 18 133/74 94 01/18/19 07:32 18 97 01/18/19 07:05 98.3 F 83 24 161/71 91 01/18/19 05:31 20 98 Intake and Output 01/17/19 01/18/19 01/18/19 23:59 07:59 15:59 Intake Total 910 / 1420 160 / 220 60 / 220 Output Total 500 / 1750 150 / 150 Balance 410 / -330 60 / 70 Intake: IV Fluids 440 / 640 100 / 100 Maxipime 2,000 MG In Water for 40 / 40 inj. (sterile) 20 ML @ 300 mls/ hr IVP Q12H DANK Rx#:[id number] Diflucan Premix 400 MG/200 ML 200 / 200 400 mg In 200 ml @ 100 mls/hr IVPB Q2H DANK Rx#:[id number] Flagyl Premix 500 MG/100 ML 500 200 / 300 100 / 100 mg In 100 ml @ 100 mls/hr IVPB Q8HR DANK Rx#:[id number] Oral 0 / 0 Blood Product 350 / 600 Rbcs Leuko Poor As-1 Unit 350 / 600 [id number] Free Water Intake Amount 120 / 180 60 / 120 60 / 120 Output: Urine 500 / 750 150 / 150 Other: # Urine Diapers 2 Blood Glucose* 130 126 210 - Labs 01/18/19 05:40 01/18/19 05:40 Diabetes panel 01/18/19 Range/Units 05:40 Sodium 141 (136-145) mEq/L Potassium 4.6 (3.5-5.1) mEq/L Chloride 112 H (98-107) mEq/L Carbon Dioxide 19 L (23-29) mEq/L BUN 54 H (8-23) mg/dL Creatinine 1.33 H (0.70-1.30) mg/dL Glucose 135 H (70-105) mg/dL Calcium 8.0 L (8.6-10.3) mg/dL Calcium panel 01/18/19 01/18/19 Range/Units 05:40 05:40 Calcium 8.0 L (8.6-10.3) mg/dL Phosphorus 3.8 (2.7-4.5) mg/dL Pituitary panel 01/18/19 Range/Units 05:40 Sodium 141 (136-145) mEq/L Potassium 4.6 (3.5-5.1) mEq/L Chloride 112 H (98-107) mEq/L Carbon Dioxide 19 L (23-29) mEq/L BUN 54 H (8-23) mg/dL Creatinine 1.33 H (0.70-1.30) mg/dL Glucose 135 H (70-105) mg/dL Calcium 8.0 L (8.6-10.3) mg/dL Adrenal panel 01/18/19 Range/Units 05:40 Sodium 141 (136-145) mEq/L Potassium 4.6 (3.5-5.1) mEq/L Chloride 112 H (98-107) mEq/L Carbon Dioxide 19 L (23-29) mEq/L BUN 54 H (8-23) mg/dL Creatinine 1.33 H (0.70-1.30) mg/dL Glucose 135 H (70-105) mg/dL Calcium 8.0 L (8.6-10.3) mg/dL - Attending Attestation I examined this patient and my medical decision-making was reviewed with the SENIOR UNIX ADMINISTRATOR. Due to pt increasing leukocytosis despite adequate IV abx and wound care, there is concern for possible infection in intraabdominal cavity complex fluid collection. IR is consulted for CT guided drainage today.
[2019-01-18] MEDS: Insulin DETEMIR 100 UNIT/ML X5UNITS SQ SCH ×2 (09:21→23:27)
[2019-01-18] MEDS: *HR* Amiodarone 200 MG TABLET PO SCH (09:21)
[2019-01-18] MEDS: Pantoprazole 40 MG VIAL IVP SCH (09:22)
[2019-01-18] MEDS: Fluconazole 400 MG/200 ML 400 MG/200 ML BAG IVPB SCH (09:22)
[2019-01-18] MEDS: Dorzolamide/Timolol 1 DROP RIGHT EYE SCH ×2 (09:55→22:51)
--- NOTE | 2019-01-18 10:04 | Infectious Disease Progress No ---
ID Progress Note Date of Encounter: 01/18/19 Time of Encounter: 10:01 - Subjective Subjective: Patient seen and examined. No acute events noted overnight. Patient resting comfortably in bed with nursing at the bedside. Allergy/immunology attempted penicillin allergy testing this morning, but the patient did not react to the controls. Continues to have leukocytosis, but bandemia resolved. Repeat blood cultures are no growth. The patient denies fevers, chills, rigors. Denies chest pain. Reports shortness of breath at rest and a moist cough that is nonproductive. He denies headache or neck pain. Denies abdominal pain or urinary complaints. Denies nausea or vomiting. Stool noted in the colostomy bag. Denies oral thrush or skin rashes. - Objective CBC & Chem 7: 01/19/19 03:44 01/19/19 03:44 - Line Documentation Line Documentation: PICC Line (Right upper extremity) - Exam Vitals: Temp Pulse Resp BP Pulse Ox 98.3 F 83 18 161/71 97 01/18/19 07:05 01/18/19 07:05 01/18/19 07:32 01/18/19 07:05 01/18/19 07:32 Exam: Head: Atraumatic, normal inspection, normocephalic. Eye: EOMI, PERRLA, no scleral icterus noted. ENT: Mucous membranes moist. No odontogenic infection noted. Muffled voice noted. Neck: Normal inspection, no meningismus. Respiratory: Clear to auscultation. No rales, respiratory distress, rhonchi, or wheezes noted. Cardiovascular: Regular rate and rhythm, S1 and S2 audible. No murmurs, rubs, or gallops. GI: Soft, distended, normal bowel sounds noted. Midline abdominal incision with dressing intact. For areas of wound dehiscence noted with packing. Mild erythema surrounding the incision appreciated. Foul-smelling serous drainage noted on the dressing. No tenderness noted. Colostomy noted to the right lower quadrant with liquid brown stool noted. Extremities:No joint swelling or tenderness noted. 1+ edema noted to the bilateral upper and bilateral lower extremities. Neurological: Alert, oriented 3, no focal deficits. Psychiatric: normal affect, normal mood. Skin: Dry, intact, warm. Pale. No rashes. - Assessment and Plan (1) Sepsis Current Visit: Yes Status: Acute The patient had three SIRS criteria. Likely secondary to intra-abdominal fluid collections and possible aspiration PNA. WBC continues to trend up, but bandemia resolved. Tachycardia improved. Afebrile . Blood cultures drawn 01/09/19 are negative x 2 sets. Repeat blood cultures drawn 01/11/19 are NGTD x [address] Chest 01/16 shows bilateral pleural effusions with associated dependent upper and lower lobe airspace disease including consolidation, atelectasis and/or pna CT Abd/pelv 01/16 small peritoneal air possibly post-surgical, mild small bowel loops, gas within the nondependent urinary bladder which may relate due to recent instrumentation Qualifiers: Sepsis type: Streptococcus, other Qualified Code(s): A40.8 - Other streptococcal sepsis SNOMED Code(s): 40891632 (2) Colostomy dysfunction Current Visit: Yes Status: Resolved Likely secondary to stenosis at colostomy site. Status post MARCY, unavoidable enterotomies, takedown colostomy and left colon resection, transverse colostomy, and SBR with primary anastamosis, and gastrostomy tube placement 01/08/[address] Cerda. Surgical site with foul-smelling drainage and wound dehiscence. Wound culture positive for GGS. Currently on Vanc, Cefepime, and flagyl. SNOMED Code(s): 26798862 (3) Abnormal abdominal CT scan Current Visit: No Status: Acute CT abdomen/pelvis 01/16/19 showed multiple moderate amount of free intraperitoneal air in the upper abdomen which could be related to recent surgery. There are multiple focal fluid collection within the abdomen and pelvis which could be postsurgical. Correlation for developing infection is recommended. There is wall thickening of the distal esophagus, some loops of bowel, as well as possibly the stomach. Correlate for infection or inflammation. There is mild on bowel dilation, likely related to ileus, without sharp transition of caliber suspected. There is gas within the nondependent urinary bladder which may relate to recent instrumentation. Correlation for infection as recommended. Concern for infectious etiology given the fluid collections noted on CT and the sepsis-like picture. Consider IR to evaluate for drain placement. Await further recommendations from the ACS team. SNOMED Code(s): 45101760042349237 (4) Pneumonia Current Visit: Yes Status: Suspected CXR shows a left retrocardiac opacity. Causative organism: Unclear. Aspiration is on the differential. No URI symptoms. Will not check MRSA screen since patient already on Vanc. Currently on Vanc, Cefepime, and flagyl. Qualifiers: Pneumonia type: due to unspecified organism Laterality: bilateral Lung location: lower lobe of lung Qualified Code(s): J18.1 - Lobar pneumonia, unspecified organism SNOMED Code(s): 514668319 (5) Abdominal pain Current Visit: Yes Status: Acute Abdominal pain, secondary to colostomy dysfunction initially, but now concern for intra-abdominal abscess. Management per primary team and acute care surgery Qualifiers: Abdominal location: generalized Qualified Code(s): R10.84 - Generalized abdominal pain SNOMED Code(s): 26657887 (6) Acute kidney injury superimposed on CKD Current Visit: Yes Status: Acute TONO on CKD3. Patient presented with elevated serum creatinine which worsened during stay. Improved. Continue to trend. Dose-adjust medications and avoid nephrotoxins as able. SNOMED Code(s): 41737974 (7) Dysphagia Current Visit: Yes Status: Acute Dysphagia, patient has failed modified barium swallow. Unknown cause of patient's dysphagia at this time. Although it is possible that the patient has damaged her vocal cords due to intubation, he has not been investigated. Additionally, the patient's family says that he has also been confused. CT Soft tissue neck was unrevealing for cause. MBS pending. Further workup and treatment per the primary team. Qualifiers: Dysphagia type: oropharyngeal phase Qualified Code(s): R13.12 - Dysphagia, oropharyngeal phase SNOMED Code(s): 22248060, 726786177 (8) Hydronephrosis, left Current Visit: No Status: Chronic Chronic, has payton catheter. SNOMED Code(s): 45245219 (9) Diabetes Current Visit: Yes Status: Acute On home insulin Management per primary team Qualifiers: Diabetes mellitus type: type 2 Diabetes mellitus half-way insulin use: without exterminator helper use Diabetes mellitus complication status: without complication Qualified Code(s): E11.9 - Type 2 diabetes mellitus without complications SNOMED Code(s): 84782602 (10) Atrial fibrillation Current Visit: Yes Status: Chronic Management per primary team Qualifiers: Atrial fibrillation type: paroxysmal Qualified Code(s): I48.0 - Paroxysmal atrial fibrillation SNOMED Code(s): 41712314 - Recommendations Recommendations: Await repeat blood cultures. Continue to trend CBC and BMP daily. Diet, wound care, and activity per the ACS team. Cancel PCN allergy testing since the patient did not react to the controls. Consider IR consult for drain placement. If able to drain, please send for culture (aerobic, anaerobic, AFB, and fungal). Continue Vancomycin IV. Pharmacy to dose. Goal trough ~15. Continue cefepime 2 grams IV Q12H. Continue flagyl 500mg IV TID. Continue fluconazole 400mg IV daily. Duration of treatment depends on the clinical picture. Monitor renal function and for drug toxicity and dose-adjust antibiotics. Consult Discharge Plan - Plan Referrals: Ranjit Rodriguez MD [Primary Care Provider] - - Attending Attestation I have personally performed a face to face evaluation on this patient. I have reviewed and agree with the care plan. History and Exam by me shows: Assessment and plan: 1.Sepsis 2.Colostomy dysfunction 3.Dysphagia 4.Confusion 5.Encephalopathy 6.Abdominal pain 7.Concern for aspiration pneumonia 8.Diabetes mellitus type 2 9.Atrial fibrillation 10.Acute kidney injury Recommendations Await repeat blood cultures. Continue to trend CBC and BMP daily. Diet, wound care, and activity per the ACS team. Cancel PCN allergy testing since the patient did not react to the controls. Consider IR consult for drain placement. If able to drain, please send for culture (aerobic, anaerobic, AFB, and fungal). Continue Vancomycin IV. Pharmacy to dose. Goal trough ~15. Continue cefepime 2 grams IV Q12H. Continue flagyl 500mg IV TID. Continue fluconazole 400mg IV daily. Duration of treatment depends on the clinical picture. Monitor renal function and for drug toxicity and dose-adjust antibiotics.
--- NOTE | 2019-01-18 11:21 | Internal Med Progress Note ---
Hospitalist Progress Note - Encounter Date of Encounter: 01/18/19 Time of Encounter: 09:00 - Subjective Interval History: Overnight event noted. Patient apparently complained of shortness of breath for which ABG and chest x-ray was done. He did not desaturate on 2 L of oxygen but was placed on higher flow O2 for his comfort. Chest X-ray on my review did not show any significant changes. Was able to wean down his oxygen back to 3L with good saturation this morning. He does complain of mild L sided abdominal pain and distension. No fever overnight - Exam Vitals: Temp Pulse Resp BP Pulse Ox 98.2 F 89 18 133/74 94 01/18/19 10:45 01/18/19 10:45 01/18/19 10:45 01/18/19 10:45 01/18/19 10:45 Exam: General: Alert and oriented, not in acute distress Cardiovascular:Normal S1 & S2, No JVD. Pulse regular. Lungs: Mostly clear with scattered rhonchi bilaterally, improving aeration Abdomen:Soft, pink stoma noted with fecal content, no blood. Abdomen is distend ed with mild L sided tenderness. Extremities:No deformity or swelling Neurological:Normal cognition and motor skills. Non-focal - Assessment and Plan (1) Sepsis Current Visit: Yes Status: Acute Assessment and Plan: Patient was initially admitted for colostomy dysfunction and underwent extensive intra-abdominal surgery on 01/08 involving 4 hours of adhesiolysis, takedown colostomy and L colon resection, transverse colostomy, and SB resection wth primary anastomosis complicated by shock post-operatively, likely due to sepsis and hypovolemia. Also had lactic acidosis of 5.5 required brief vasopressor support, d/nicholas on 01/11 BP normalized but pt is noted to have worsening leukocytosis and bandemia despite being on Cefepime/flagyl (D10) ESR > 130, CRP 167, procal 2.14 after discussing with ID and Surgery, CT scan from head to pelvis was performed which showed consolidative changes in the lung as well as multiple focal intraabdominal fluid collections IV Vanc was added per ID on 01/16. Diflucan added yesterday. Appreciate ID input discussed with surgery in great detail, would attempt for IR guided drainage of one of the intra-abdominal fluid collections bld c/s 01/09 -ve, 01/16 NGTD (2) Acute respiratory failure with hypoxia Current Visit: Yes Status: Acute Assessment and Plan: developed mild SOB yesterday with new O2 requirement of 3L CT chest showed consolidative changes in the dependent area of upper/lower lobe bilaterally although he did complain of SOB overnight, CXR did not show any significant change and it was more related to shallow breathing due to abdominal distension rather than needing higher flow of O2. Pt also appears to be tachypneic from sepsis continue abx as above (3) Pneumonia Current Visit: Yes Status: Acute Assessment and Plan: abx as above strep/legionella ags -ve (4) Anemia Current Visit: Yes Status: Acute Assessment and Plan: Hb on presentation was 13 -> now down to 7.9 in the post-op setting and severe illness FOBT +ve, however, no bloody output noted from both stoma or rectum After discussing with surgery on 01/17, 1U pRBC was given with Hb 8.6 today Since pt is hemodynamically stable, would consider further intervention if bloody output from stoma or rectum is noted. iron level low, will start IV supplementation (5) Acute on chronic renal insufficiency Current Visit: Yes Status: Resolved Assessment and Plan: Cr slightly increased after 1 dose of IV lasix yesterday that was given after 1U pRBC would hold off on diurectis today Renally dosed antibiotics, avoid nephrotoxins (6) Colostomy dysfunction Current Visit: Yes Status: Resolved Assessment and Plan: s/p op on 01/08 as above on TPN currently, failed MBS started on tube feed on 01/17 after discussing with surgery (7) Atrial fibrillation Current Visit: Yes Status: Chronic Assessment and Plan: hospital course was complicated by afib with RVR and diffuse ST changes on EKG serial troponins -ve, Echo showed preserved EF and no significant valvulopathy required amiodarone gtt -> now on PO Amiodarone which will be resumed through PEG tube PRN IV lopressor appreciate cardiology input, hep gtt d/nicholas. Patient did not tolerate full AC previously as per outpatient records. Will resume aspirin 325mg when cleared by surgery and able to take by mouth (8) Essential hypertension Current Visit: No Status: Chronic Assessment and Plan: norvasc on hold (9) T2DM (type 2 diabetes mellitus) Current Visit: Yes Status: Chronic Assessment and Plan: continue basal bolus insulin DVT Prophylaxis: EPCD given anemia - Time Spent with Patient Total time spent is greater than 50% in coordination of care (as documented) at patient's floor/unit and/or counseling patient: Greater than 35 minutes Plan of Care Discussed with: patient (discussed with surgery in detail) Internal Medicine: Result - Labs CBC & Chem 7: 01/18/19 05:40 01/18/19 05:40 Labs: Short CBC 01/17/19 01/18/19 Range/Units 18:30 05:40 WBC 16.7 H (4.3-11.1) K/mcL Hgb 9.0 L 8.6 L (12.9-16.9) g/dL Hct 28.7 L 27.4 L (37.5-50.1) % Plt Count 291 (140-400) K/mcL Neutrophils # 14.4 H (1.6-8.9) K/mcL BMP 01/18/19 05:40 Sodium 141 Potassium 4.6 Chloride 112 H Carbon Dioxide 19 L BUN 54 H Creatinine 1.33 H Glucose 135 H Calcium 8.0 L - ABG Interpretation ABG results: ABG ABG pH 7.47 pH Units (7.32-7.45) H 01/18/19 00:36 ABG pCO2 24 mmHg (35-45) L 01/18/19 00:36 ABG pO2 80 mmHg (85-104) L 01/18/19 00:36 ABG O2 Saturation 97 % (95-98) 01/18/19 00:36 PT/INR, D-dimer PT 15.5 Seconds (9.4-12.1) H 01/14/19 17:30 - Impressions Impressions Head CT 01/16/19 14:47 IMPRESSION: No acute intracranial abnormality. Cerebral atrophy. Mild chronic small vessel ischemic changes. D/ /16/2019 18:58:36 Emma August MD / [facility] Interpreting Provider: Emma August MD Chest X-Ray 01/18/19 00:20 IMPRESSION: Mild cardiomegaly. Pulmonary vascularity appears mildly prominent. Left effusion. Left retrocardiac opacity favoring focal airspace disease. RECOMMENDATION: PA and lateral views of the chest may prove helpful for best assessment. D/ / Kendra Christian MD / Kendra Christian MD Interpreting Provider: Kendra Christian MD Consult Discharge Plan - Plan Referrals: Ranjit Rodriguez MD [Primary Care Provider] - ____ (1) Sepsis Qualifiers: Sepsis type: sepsis due to unspecified organism Qualified Code(s): A41.9 - Sepsis, unspecified organism (3) Pneumonia Qualifiers: Pneumonia type: due to unspecified organism Laterality: bilateral Lung location: lower lobe of lung Qualified Code(s): J18.1 - Lobar pneumonia, unspecified organism (4) Anemia Qualifiers: Anemia type: iron deficiency Iron deficiency anemia type: unspecified iron deficiency Qualified Code(s): D50.9 - Iron deficiency anemia, unspecified (7) Atrial fibrillation Qualifiers: Atrial fibrillation type: paroxysmal Qualified Code(s): I48.0 - Paroxysmal atrial fibrillation (9) T2DM (type 2 diabetes mellitus) Qualifiers: Diabetes mellitus nursing home insulin use: with buttermaker continuous churn use Diabetes mellitus complication status: with hyperglycemia Qualified Code(s): E11.65 - Type 2 diabetes mellitus with hyperglycemia; Z79.4 - senior living (current) use of insulin
[2019-01-18] MEDS ORDERED: *HR* Metoprolol 5 MG/5 ML VIAL IVP PRN (11:27)
--- NOTE | 2019-01-18 11:54 | Electrocardiograph Report ---
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
[2019-01-18] MEDS: Sodium Ferric Gluconat/Sucrose 125 MG in 0.9 % Sodium Chloride 100 ML IVPB SCH (13:10)
--- NOTE | 2019-01-18 14:41 | IR Procedure Note ---
Date of procedure: 01/18/19 Consent Obtained: Verbal consent, Written consent Timeout: Correct patient and procedure verified, Correct site verified, Time out performed, Skin prep completed Local anesthetic: Lidocaine 1% Was there an social research assistant present: No Estimated blood loss (cc): 2 Complications: None; Tolerated procedure well Indications: Abdominal abscesses Procedure Performed: CT guided abscess drain x2 Site/Technique: CT guided abdominal abscess drain placement x2 Results/Findings (any specimens removed): 10 Fr drains placed due to purulent abdominal fluid Post Procedure Treatment Plan: Continue inpatient care Specimen: purulent fluid aspirated and sent for cultures
--- NOTE | 2019-01-18 14:57 | Allergy Progress Note ---
Date of Encounter: 01/18/19 Time of Encounter: 06:30 Subjective Patient reports: no new complaints Narrative: Patient feels his breathing is a little better today. His speech is unchanged. He denies pain at this time. Objective Vital Signs - Last 8 Hours Temp Pulse Resp BP Pulse Ox 01/18/19 10:45 98.2 F 89 18 133/74 94 01/18/19 07:32 18 97 01/18/19 07:05 98.3 F 83 24 161/71 91 Intake and Output 01/17/19 01/18/19 01/18/19 23:59 07:59 15:59 Intake Total 910 / 1420 160 / 280 120 / 280 Output Total 500 / 1750 150 / 450 300 / 450 Balance 410 / -330 10 / -170 -180 / -170 Intake: IV Fluids 440 / 640 100 / 100 Maxipime 2,000 MG In Water for 40 / 40 inj. (sterile) 20 ML @ 300 mls/ hr IVP Q12H [facility] Rx#:[id number] Diflucan Premix 400 MG/200 ML 200 / 200 400 mg In 200 ml @ 100 mls/hr IVPB Q2H [facility] Rx#:[id number] Flagyl Premix 500 MG/100 ML 500 200 / 300 100 / 100 mg In 100 ml @ 100 mls/hr IVPB Q8HR [facility] Rx#:[id number] Oral 0 / 0 Blood Product 350 / 600 Rbcs Leuko Poor As-1 Unit 350 / 600 [id number] Free Water Intake Amount 120 / 180 60 / 180 120 / 180 Output: Urine 500 / 750 150 / 450 300 / 450 Other: # Urine Diapers 2 1 Blood Glucose* 130 126 210 - General physical appearance no distress - Eyes normal ocular movement - ENT dry mucosa - Neck no lymphadectomy - Respiratory normal expansion, clear to auscultation - Abdomen soft, non tender - Integumentary no rash - Musculoskeletal other - Additional Exam heart-RRR ext-less edema today - Labs 01/18/19 05:40 01/18/19 05:40 Diabetes panel 01/18/19 Range/Units 05:40 Sodium 141 (136-145) mEq/L Potassium 4.6 (3.5-5.1) mEq/L Chloride 112 H (98-107) mEq/L Carbon Dioxide 19 L (23-29) mEq/L BUN 54 H (8-23) mg/dL Creatinine 1.33 H (0.70-1.30) mg/dL Glucose 135 H (70-105) mg/dL Calcium 8.0 L (8.6-10.3) mg/dL Calcium panel 01/18/19 01/18/19 Range/Units 05:40 05:40 Calcium 8.0 L (8.6-10.3) mg/dL Phosphorus 3.8 (2.7-4.5) mg/dL Pituitary panel 01/18/19 Range/Units 05:40 Sodium 141 (136-145) mEq/L Potassium 4.6 (3.5-5.1) mEq/L Chloride 112 H (98-107) mEq/L Carbon Dioxide 19 L (23-29) mEq/L BUN 54 H (8-23) mg/dL Creatinine 1.33 H (0.70-1.30) mg/dL Glucose 135 H (70-105) mg/dL Calcium 8.0 L (8.6-10.3) mg/dL Adrenal panel 01/18/19 Range/Units 05:40 Sodium 141 (136-145) mEq/L Potassium 4.6 (3.5-5.1) mEq/L Chloride 112 H (98-107) mEq/L Carbon Dioxide 19 L (23-29) mEq/L BUN 54 H (8-23) mg/dL Creatinine 1.33 H (0.70-1.30) mg/dL Glucose 135 H (70-105) mg/dL Calcium 8.0 L (8.6-10.3) mg/dL - Assessment and Plan (1) Adverse effect of penicillins, initial encounter Current Visit: Yes Status: Acute I attempted his histamine again this morning and he did not have a response so it is not possible to do penicillin testing at this time. I would recommend trying again as an outpatient. I discussed with Dr. Herrera. I would continue to avoid penicillins if there is another option. If at some point there is no other option I would consider a graded Zosyn challenge in ICU. Qualifiers: Encounter type: initial encounter Qualified Code(s): T36.0X5A - Adverse effect of penicillins, initial encounter (2) Allergy status to penicillin Current Visit: Yes Status: Acute Consult Discharge Plan - Plan Referrals: Ranjit Rodriguez MD [Primary Care Provider] -
--- NOTE | 2019-01-18 17:17 | ENT - Consult Note ---
Date of Encounter: 01/18/19 Time of Encounter: 17:15 Assessment and Plan (1) Acute respiratory failure with hypoxia Current Visit: Yes Status: Acute 73 yo male w/ fairly sudden episode of dysphagia and dysarthria. Dysarthria appears to be 2/2 limited tongue mobility which is likely 2/2 weakness. Dysphagia may be 2/2 TVC paresis or loss of sensation, or both. Unfortunately I cannot visualize anything in the airway which is a bit of a concern given the risk of aspiration if any of this breaks off. I did my best to remove what I could from his palate but I could not get any more from behind the tongue base. Highest on my ddx is ishemic stroke. Could be infection- thrush? but I have never seen thrush like this and given the case appearance on CT this is likely just dried barium. I recommend adding humidity to his oxygen. Perhaps this will loosen things. I have also placed a suction at bedside and instructed the patient to use it if he feels something uncomfortable in his mouth. Unfortunately, he states he has no sensation now. I will return tomorrow and see if I can work any of this substance out of the airway. I would continue to keep patient NPO and continue to have him work with speech. History of Present Illness Consult date: 01/18/19 Comment: hoarseness and aspiration History of present illness: 73 yo male w/ remote history of rectal ca in 2004 admitted on 07 January with UTI and leakage around his ostomy. Went into OR on 08 January for colostomy revision. Surgery was 6 hours. Pt had septic shock requiring pressors for a short time. Was extubated after surgery. Was evaluated by MARKETING DEVELOPMENT MANAGER on 15 January and found to have aspiration. A CT neck was performed which, unfortunately, has a cast of barium contrast from his oral cavity into his trachea, precluding visualization of the underlying structures. Patient's neice reports a significant change on Tuesday or Tuesday with difficulty understanding his speech and patient coughing with swallow. Nurse noted this too. It appeared to have happened in the middle of the day. Patient denies pain, dyspnea, but is having difficulty speaking and swallowing. Says he has been working hard doing exercises as recommended by MARKETING DEVELOPMENT MANAGER. Past Med Surg Social Fam HX - Past Medical History Medical history: atrial fibrillation, cancer, coronary artery disease, diabetes, glaucoma, kidney stones, renal disease Additional medical history: rectal cancer, GI bleed r/t Xarelto. Psychiatric history: anxiety, depression - Past Surgical History Surgical History: pacemaker/AICD, other Additional surgical history: colon resection, hernia repair - 11/02/2017; eye sx., Pacer. - Social History Smoking Status: Never smoker Smokeless Tobacco Status: No Alcohol use: none Drug use: none - Family History Father Living Status: Hx Family Cardiac Disorders: Yes Mother Living Status: Medications and Allergies Ascorbic Acid [Vitamin C] 1,000 mg PO DAILY 12/31/15 [History] Metoprolol [Lopressor] 100 mg PO BID 12/31/15 [History] Multivitamin [One Daily Essential] 1 tab PO DAILY 12/31/15 [History] Brimonidine Tartrate/Timolol [Combigan 0.2%-0.5% Eye Drops] 1 drop RIGHT EYE BID 10/18/16 [History] Insulin DETEMIR [Levemir Flextouch] 12 unit SQ BID 11/09/16 [History] Amiodarone [Cordarone] 200 mg PO DAILY 08/04/17 [History] Zolpidem [Ambien] 10 mg PO HS 08/04/17 [History] Bimatoprost [Lumigan] 1 drop RIGHT EYE HS 11/02/17 [History] Calcium Carbonate [Calcium] 600 mg PO DAILY 11/02/17 [History] Dorzolamide [Trusopt] 1 drop RIGHT EYE TID 11/02/17 [History] Tolterodine Tartrate [Detrol] 2 mg PO BID 11/02/17 [History] Docusate [Colace] 100 mg PO DAILY #14 capsule 12/06/18 [Rx] Amlodipine Besylate 10 mg PO DAILY 01/09/19 [History] Aspirin 325 mg PO DAILY 01/09/19 [History] Glimepiride [Amaryl] 4 mg PO DAILY 01/09/19 [History] Insulin ASPART [Novolog Flexpen] 4 - 8 unit SQ TIDWM 01/09/19 [History] Allergy/AdvReac Type Severity Reaction Status Date / Time Penicillins Allergy Unknown Hives Verified 01/07/19 08:14 ENT - ROS All systems PM: reviewed and no additional remarkable complaints except as stated (as above) ENT Exam Initial Vital Signs Temp Pulse Resp BP Pulse Ox 97.5 F L 60 16 147/77 97 01/07/19 08:12 01/07/19 08:12 01/07/19 08:12 01/07/19 08:12 01/07/19 08:12 - General physical appearance well developed (Patient is tachypneic and difficult to understand), well nourished, no distress, no pain. negative: moderate distress, severe distress, moderate pain, severe pain, cachectic, obese - ENT normal pinna, normal nares (BL anterior nares with dried crusting. R NSD. L nasal cavity widely patent and somewhat dry. Oral cavity is very very dry. tongue has some TTP but looks normal. Soft palate has decreased tone but midline elevation with patient phonating. Soft palate is caked in dried what is asuumed to be barium. I was able to pry this off and there was some irritation of the underlying mucosa but no lesions. Patient has no gag reflex at the palatal level. I was able to palpate his epiglottis which caused discomfort but no gag. Neck was soft with no LAD. CN: V1-3 intact. Tongue and palate appear weak but mobile. CNXI intact. No subjective hearing complaints. Facial nerve appears symmetric.). negative: decreased hearing, deviated nasal septum, nasal discharge, poor chcf, dentures, mucosal exudate, dry mucosa Exam Initial Vital Signs Temp Pulse Resp BP Pulse Ox 97.5 F L 60 16 147/77 97 01/07/19 08:12 01/07/19 08:12 01/07/19 08:12 01/07/19 08:12 01/07/19 08:12 - Additional Findings Flexible Nasopharyngoscopy: After verbal informed consent was obtained, the scope was passed through the left nare coated in 2% lidocaine jelly. The bilateral nasal cavity was examined and there was no lesions noted. The nasopharynx was clear with atrophic adenoids. There were no lesions in the bi lateral fossa of rosenmueller. At the base of tongue there is the same caked white/green dried substance and I was not able to clear this out. I was able to pass beyond it but the entire upper airway is covered and I could not reliable identifyany structures.stru Results - Labs 01/18/19 05:40 01/18/19 05:40 Abnormal lab results WBC 16.7 K/mcL (4.3-11.1) H 01/18/19 05:40 RBC 3.06 M/mcL (4.19-5.50) L 01/18/19 05:40 Hgb 8.6 g/dL (12.9-16.9) L 01/18/19 05:40 Hct 27.4 % (37.5-50.1) L 01/18/19 05:40 MCH 27.2 pg (28.0-33.3) L 01/17/19 04:20 MCHC 31.4 g/dL (31.6-35.5) L 01/18/19 05:40 RDW 18.9 % (11.5-14.5) H 01/18/19 05:40 16.0 % (0-4) H 01/17/19 04:20 2.0 % (0) H 01/10/19 04:15 4.0 % (0) H 01/16/19 05:12 14.4 K/mcL (1.6-8.9) H 01/18/19 05:40 0.5 K/mcL (0.6-4.6) L 01/11/19 03:45 Nucleated RBCs/100 WBC 0.1 /100 WBC (0) H 01/18/19 05:40 Present (Not Present) A 01/16/19 05:12 Present (Not Present) A 01/13/19 04:00 1+ (Not Present) A 01/18/19 05:40 Present (Not Present) A 01/13/19 04:00 1+ (Not Present) A 01/18/19 05:40 Present (Not Present) A 01/13/19 04:00 1+ (Not Present) A 01/11/19 03:45 1+ (Not Present) A 01/11/19 03:45 ESR >= 130 mm/hr (0-10) H 01/17/19 04:20 PT 15.5 Seconds (9.4-12.1) H 01/14/19 17:30 APTT 23.2 Seconds (26.0-36.0) L D 01/14/19 17:30 Heparin Anti-Xa, Unfract 0.00 IU/mL (0.30-0.70) L 01/14/19 17:30 ABG pH 7.47 pH Units (7.32-7.45) H 01/18/19 00:36 ABG pCO2 24 mmHg (35-45) L 01/18/19 00:36 ABG pO2 80 mmHg (85-104) L 01/18/19 00:36 ABG HCO3 17 mEq/L (21-27) L 01/18/19 00:36 ABG Total CO2 18 mEq/L (20-26) L 01/18/19 00:36 ABG Base Excess -5 mEq/L (-2 to 3) L 01/18/19 00:36 Sodium 128 mEq/L (136-145) L 01/14/19 09:10 Potassium 5.4 mEq/L (3.5-5.1) H 01/14/19 09:10 Chloride 112 mEq/L (98-107) H 01/18/19 05:40 Carbon Dioxide 19 mEq/L (23-29) L 01/18/19 05:40 BUN 54 mg/dL (8-23) H 01/18/19 05:40 1.33 mg/dL (0.70-1.30) H 01/18/19 05:40 Est GFR ( Amer) 57 (> 60) L 01/15/19 01:29 Est GFR (Non-Af Amer) 52 (> 60) L 01/18/19 05:40 41 (6-26) H 01/18/19 05:40 Glucose 135 mg/dL (70-105) H 01/18/19 05:40 POC Glucose 210 mg/dL (70-99) H 01/18/19 11:20 6.2 % (-5.6) H 01/07/19 08:46 309 (280-300) H 01/18/19 05:40 Lactic Acid 2.4 mmol/L (0.5-2.2) H 01/10/19 00:14 Calcium 8.0 mg/dL (8.6-10.3) L 01/18/19 05:40 Venous Ioniz Calcium 1.08 mmol/L (1.15-1.35) L 01/11/19 04:14 Phosphorus 6.0 mg/dL (2.7-4.5) H 01/14/19 09:10 Iron < 10 mcg/dL (65-175) L 01/18/19 05:40 98 mg/dL (203-362) L 01/18/19 05:40 AST 9 Units/L (13-39) L 01/12/19 11:21 167 mg/L (Less than 10) H 01/17/19 04:20 B-Natriuretic Peptide 300 pg/mL (Less than 100) H 01/09/19 15:18 4.4 g/dL (6.4-8.9) L 01/12/19 11:21 2.3 g/dL (3.5-5.7) L 01/12/19 11:21 2.1 g/dL (2.4-3.5) L 01/12/19 11:21 11.5 mg/dL (17.0-34.0) L 01/17/19 04:20 Triglycerides 179 mg/dL (< 150) H 01/10/19 04:15 6 Units/L (11-82) L 01/07/19 08:46 2.14 ng/mL (0.00-0.15) H 01/16/19 16:09 Cloudy (Clear) A 01/07/19 11:03 Ur Leukocyte Esterase Moderate (Negative) H 01/07/19 11:03 3-5 per hpf (0-3) H 01/07/19 11:03 50-100 per hpf (0-3) H 01/07/19 11:03 Ur Squamous Epith Cells Many per lpf (None-Few) H 01/07/19 11:03 Many per hpf (None-Few) H 01/07/19 11:03 Ur Culture Indicated? YES (NO) A 01/07/19 11:03 Positive (Negative) A 01/17/19 08:42 Crossmatch See Detail 01/17/19 12:25 Diabetes panel 01/18/19 Range/Units 05:40 Sodium 141 (136-145) mEq/L Potassium 4.6 (3.5-5.1) mEq/L Chloride 112 H (98-107) mEq/L Carbon Dioxide 19 L (23-29) mEq/L BUN 54 H (8-23) mg/dL Creatinine 1.33 H (0.70-1.30) mg/dL Glucose 135 H (70-105) mg/dL Calcium 8.0 L (8.6-10.3) mg/dL Calcium panel 01/18/19 01/18/19 Range/Units 05:40 05:40 Calcium 8.0 L (8.6-10.3) mg/dL Phosphorus 3.8 (2.7-4.5) mg/dL Pituitary panel 01/18/19 Range/Units 05:40 Sodium 141 (136-145) mEq/L Potassium 4.6 (3.5-5.1) mEq/L Chloride 112 H (98-107) mEq/L Carbon Dioxide 19 L (23-29) mEq/L BUN 54 H (8-23) mg/dL Creatinine 1.33 H (0.70-1.30) mg/dL Glucose 135 H (70-105) mg/dL Calcium 8.0 L (8.6-10.3) mg/dL Adrenal panel 01/18/19 Range/Units 05:40 Sodium 141 (136-145) mEq/L Potassium 4.6 (3.5-5.1) mEq/L Chloride 112 H (98-107) mEq/L Carbon Dioxide 19 L (23-29) mEq/L BUN 54 H (8-23) mg/dL Creatinine 1.33 H (0.70-1.30) mg/dL Glucose 135 H (70-105) mg/dL Calcium 8.0 L (8.6-10.3) mg/dL All other labs normal. Consult Discharge Plan - Plan Referrals: Ranjit Rodriguez MD [Primary Care Provider] -
[2019-01-18] MEDS: *HR* Dextrose 50 % in Water (Syg) 50 ML SYRINGE IVP PRN (20:45)
[2019-01-18] MEDS: Latanoprost 2.5 ML BOTTLE RIGHT EYE SCH (21:03)
[2019-01-19] MEDS: Insulin LISPRO 300 UNITS/3 ML VIAL SQ SCH ×6 (02:18→20:17)
[2019-01-19] MEDS: Acetaminophen IV 1,000 MG/100 ML INFUS..BTL IVPB PRN ×2 (02:24→23:53)
[2019-01-19] MEDS: Ipratropium/Albuterol Neb 3 ML IH SCH ×6 (03:51→23:48)
[2019-01-19 04:32] LABS: Hematocrit 29.8 % (37.5-50.1); Hemoglobin 9.2 g/dL (12.9-16.9); Mean Corpuscular HGB Conc 30.9 g/dL (31.6-35.5); Mean Corpuscular Hemoglobin 27.6 pg (28.0-33.3); Mean Corpuscular Volume 89.5 fL (83.0-100.0); Mean Platelet Volume 11.6 fL (9.4-12.4); Platelet Count 434 K/mcL (140-400); Red Blood Count 3.33 M/mcL (4.19-5.50); White Blood Count 22.4 K/mcL (4.3-11.1)
[2019-01-19 04:50] LABS: BUN/Creatinine Ratio 37 (6-26); Blood Urea Nitrogen 48 mg/dL (8-23); Calcium 8.3 mg/dL (8.6-10.3); Carbon Dioxide 17 mEq/L (23-29); Chloride 111 mEq/L (98-107); Glucose 215 mg/dL (70-105); Osmolality,Calculated 307 (280-300); Potassium 4.8 mEq/L (3.5-5.1); Sodium 139 mEq/L (136-145); eGFR For African Americans > 60 (> 60); eGFR For Non-African Americans 53 (> 60)
[2019-01-19] MEDS ORDERED: Artificial Tears SOLN 15 ML BOTTLE BOTH EYES PRN (04:50)
--- NOTE | 2019-01-19 05:04 | Event Note ---
Date of Encounter: 01/19/19 Time of Encounter: 04:56 Rapid response was called overhead. Myself, Dr. Gomez and Dr. Perdue responded to the patient's room where he was hypoxic. The patient was not responding or following commands, he was attempting to breathe on his own and did have a pulse. Respiratory therapy was present in the room and began bagging the patient however he continued to desaturate. During this time his heart rate and blood pressure remained stable. Due to the patient's unresponsiveness and continuing hypoxia decision was made to intubate. 5 mg of IV Valium and 20 mg of IV etomidate were administered. The patient was being bagged and began to have an increase in his oxygen saturation when he subsequently began to vomit and aspirate. Patient was aggressively suctioned and a large foreign body was removed from the airway. After the patient was sufficiently suctioned respiratory therapy was able to intubate the patient. There was color change with carbon dioxide sensor and breath sounds were heard bilaterally. Immediately after intubation the patient's oxygen saturation improved to 100%. Once his airway was secured he was readied for transport and transferred to the ICU. On arrival to the ICU the patient was hooked to mechanical ventilation and stabilized. On review of documentation the patient apparently was seen by ENT today who documented a large body of dried barium and secretions in the patient's oropharynx and airway which likely broke off. On review of the patient's antibiotics he is already on cefepime, metronidazole, vancomycin which will cover for aspiration. Propofol was initiated for sedation and ventilation bundle order set was started.
[2019-01-19 05:35] LABS: Lymphocytes # 1.8 K/mcL (0.6-4.6); Monocytes # 1.8 K/mcL (0.0-1.3); Neutrophils # 18.4 K/mcL (1.6-8.9)
[2019-01-19 05:36] LABS: Anisocytosis 1+ (Not Present); Platelet Estimate Normal (Normal); Polychromasia 1+ (Not Present)
[2019-01-19 05:39] LABS: ABG Base Excess -8 mEq/L (-2 to 3); ABG HCO3 18 mEq/L (21-27); ABG Oxygen Saturation 100 % (95-98); ABG PCO2 38 mmHg (35-45); ABG PH 7.28 pH Units (7.32-7.45); ABG PO2 271 mmHg (85-104); ABG TCO2 19 mEq/L (20-26); Blood Gas PEEP 5 cm H2O; Blood Gas VT 500 cc
[2019-01-19] MEDS: Cefepime HCl 2,000 MG in Water for inj. (sterile) 20 ML IVP SCH ×2 (06:16→17:38)
[2019-01-19] MEDS: FentaNYL (PF) 1,000 MCG in 0.9 % Sodium Chloride 80 ML IVC SCH ×2 (06:56→17:37)
--- NOTE | 2019-01-19 07:32 | Pulmonology Consult Note ---
<Avi Steele W - Last Filed: 01/19/19 14:08> Date of Encounter: 01/19/19 Assessment and Plan (1) Postoperative hypovolemic shock Current Visit: Yes Status: Acute Qualifiers: Encounter type: sequela Qualified Code(s): T81.19XS - Other postprocedural shock, sequela (2) Acute diastolic heart failure with preserved ejection fraction Current Visit: Yes Status: Acute Medications and Allergies Ascorbic Acid [Vitamin C] 1,000 mg PO DAILY 12/31/15 [History] Metoprolol [Lopressor] 100 mg PO BID 12/31/15 [History] Multivitamin [One Daily Essential] 1 tab PO DAILY 12/31/15 [History] Brimonidine Tartrate/Timolol [Combigan 0.2%-0.5% Eye Drops] 1 drop RIGHT EYE BID 10/18/16 [History] Insulin DETEMIR [Levemir Flextouch] 12 unit SQ BID 11/09/16 [History] Amiodarone [Cordarone] 200 mg PO DAILY 08/04/17 [History] Zolpidem [Ambien] 10 mg PO HS 08/04/17 [History] Bimatoprost [Lumigan] 1 drop RIGHT EYE HS 11/02/17 [History] Calcium Carbonate [Calcium] 600 mg PO DAILY 11/02/17 [History] Dorzolamide [Trusopt] 1 drop RIGHT EYE TID 11/02/17 [History] Tolterodine Tartrate [Detrol] 2 mg PO BID 11/02/17 [History] Docusate [Colace] 100 mg PO DAILY #14 capsule 12/06/18 [Rx] Amlodipine Besylate 10 mg PO DAILY 01/09/19 [History] Aspirin 325 mg PO DAILY 01/09/19 [History] Glimepiride [Amaryl] 4 mg PO DAILY 01/09/19 [History] Insulin ASPART [Novolog Flexpen] 4 - 8 unit SQ TIDWM 01/09/19 [History] Allergy/AdvReac Type Severity Reaction Status Date / Time Penicillins Allergy Unknown Hives Verified 01/07/19 08:14 All Systems: The remainder of the systems were reviewed and are negative Physical Examination Vital Signs: Vital Signs, Last 4 Hours Temp Pulse Resp BP Pulse Ox 06/21/19 13:08 99.2 F 01/19/19 13:00 95 25 95/56 91 01/19/19 12:00 99 20 119/61 91 01/19/19 11:23 18 86/54 93 01/19/19 11:00 96 18 86/54 91 Ventilator Settings Ventilator Settings: Ventilator Settings, Last 8 Hours Ventilator Tidal Volume 500 Setting Ventilator Tidal Volume 500 Setting Ventilator Tidal Volume 500 Setting Ventilator Tidal Volume 500 Setting Ventilator Tidal Volume 500 Setting Ventilator Tidal Volume 500 Setting Ventilator Tidal Volume 500 Setting Ventilator Tidal Volume 500 Setting Ventilator Tidal Volume 500 Setting Ventilator Tidal Volume 500 Setting Ventilator Tidal Volume 500 Setting Ventilator Respiratory Rate 14 Setting Ventilator Respiratory Rate 14 Setting Ventilator Respiratory Rate 14 Setting Ventilator Respiratory Rate 14 Setting Ventilator Respiratory Rate 14 Setting Ventilator Respiratory Rate 14 Setting Ventilator Respiratory Rate 14 Setting Ventilator Respiratory Rate 14 Setting Ventilator Respiratory Rate 14 Setting Ventilator Respiratory Rate 14 Setting Ventilator Respiratory Rate 14 Setting Actual Respiratory Rate 25 Actual Respiratory Rate 20 Actual Respiratory Rate 20 Actual Respiratory Rate 19 Actual Respiratory Rate 18 Actual Respiratory Rate 19 Actual Respiratory Rate 18 Actual Respiratory Rate 32 Actual Respiratory Rate 32 Actual Respiratory Rate 30 Actual Respiratory Rate 34 Positive End Expiratory 5 Pressure Positive End Expiratory 5 Pressure Positive End Expiratory 5 Pressure Positive End Expiratory 5 Pressure Positive End Expiratory 5 Pressure Positive End Expiratory 5 Pressure Positive End Expiratory 5 Pressure Positive End Expiratory 5 Pressure Positive End Expiratory 5 Pressure Positive End Expiratory 5 Pressure Positive End Expiratory 5 Pressure Peak Inspiratory Airway 11 Pressure Peak Inspiratory Airway 22 Pressure Results - Laboratory Findings CBC and BMP: 01/19/19 03:44 01/19/19 03:44 ABG ABG pH 7.28 pH Units (7.32-7.45) L 01/19/19 05:36 ABG pCO2 38 mmHg (35-45) 01/19/19 05:36 ABG pO2 271 mmHg (85-104) H 01/19/19 05:36 ABG O2 Saturation 100 % (95-98) H 01/19/19 05:36 PT/INR, D-dimer PT 15.5 Seconds (9.4-12.1) H 01/14/19 17:30 Abnormal lab findings: Abnormal lab results WBC 22.4 K/mcL (4.3-11.1) H 01/19/19 03:44 RBC 3.33 M/mcL (4.19-5.50) L 01/19/19 03:44 Hgb 9.2 g/dL (12.9-16.9) L 01/19/19 03:44 Hct 29.8 % (37.5-50.1) L 01/19/19 03:44 MCH 27.6 pg (28.0-33.3) L 01/19/19 03:44 MCHC 30.9 g/dL (31.6-35.5) L 01/19/19 03:44 RDW 19.0 % (11.5-14.5) H 01/19/19 03:44 Plt Count 434 K/mcL (140-400) H 01/19/19 03:44 12.0 % (0-4) H 01/19/19 03:44 2.0 % (0) H 01/19/19 03:44 4.0 % (0) H 01/16/19 05:12 18.4 K/mcL (1.6-8.9) H 01/19/19 03:44 0.5 K/mcL (0.6-4.6) L 01/11/19 03:45 1.8 K/mcL (0.0-1.3) H 01/19/19 03:44 Nucleated RBCs/100 WBC 0.1 /100 WBC (0) H 01/18/19 05:40 Present (Not Present) A 01/16/19 05:12 Present (Not Present) A 01/13/19 04:00 1+ (Not Present) A 01/19/19 03:44 Present (Not Present) A 01/13/19 04:00 1+ (Not Present) A 01/19/19 03:44 Present (Not Present) A 01/13/19 04:00 1+ (Not Present) A 01/11/19 03:45 1+ (Not Present) A 01/11/19 03:45 ESR >= 130 mm/hr (0-10) H 01/17/19 04:20 PT 15.5 Seconds (9.4-12.1) H 01/14/19 17:30 APTT 23.2 Seconds (26.0-36.0) L D 01/14/19 17:30 Heparin Anti-Xa, Unfract 0.00 IU/mL (0.30-0.70) L 01/14/19 17:30 ABG pH 7.28 pH Units (7.32-7.45) L 01/19/19 05:36 ABG pCO2 24 mmHg (35-45) L 01/18/19 00:36 ABG pO2 271 mmHg (85-104) H 01/19/19 05:36 ABG HCO3 18 mEq/L (21-27) L 01/19/19 05:36 ABG Total CO2 19 mEq/L (20-26) L 01/19/19 05:36 ABG O2 Saturation 100 % (95-98) H 01/19/19 05:36 ABG Base Excess -8 mEq/L (-2 to 3) L 01/19/19 05:36 Sodium 128 mEq/L (136-145) L 01/14/19 09:10 Potassium 5.4 mEq/L (3.5-5.1) H 01/14/19 09:10 Chloride 111 mEq/L (98-107) H 01/19/19 03:44 Carbon Dioxide 17 mEq/L (23-29) L 01/19/19 03:44 BUN 48 mg/dL (8-23) H 01/19/19 03:44 1.31 mg/dL (0.70-1.30) H 01/19/19 03:44 Est GFR ( Amer) 57 (> 60) L 01/15/19 01:29 Est GFR (Non-Af Amer) 53 (> 60) L 01/19/19 03:44 37 (6-26) H 01/19/19 03:44 Glucose 215 mg/dL (70-105) H 01/19/19 03:44 POC Glucose 253 mg/dL (70-99) H 01/19/19 04:23 6.2 % (-5.6) H 01/07/19 08:46 307 (280-300) H 01/19/19 03:44 Lactic Acid 2.4 mmol/L (0.5-2.2) H 01/10/19 00:14 Calcium 8.3 mg/dL (8.6-10.3) L 01/19/19 03:44 Venous Ioniz Calcium 1.08 mmol/L (1.15-1.35) L 01/11/19 04:14 Phosphorus 6.0 mg/dL (2.7-4.5) H 01/14/19 09:10 Iron < 10 mcg/dL (65-175) L 01/18/19 05:40 98 mg/dL (203-362) L 01/18/19 05:40 AST 9 Units/L (13-39) L 01/12/19 11:21 167 mg/L (Less than 10) H 01/17/19 04:20 B-Natriuretic Peptide 300 pg/mL (Less than 100) H 01/09/19 15:18 4.4 g/dL (6.4-8.9) L 01/12/19 11:21 2.3 g/dL (3.5-5.7) L 01/12/19 11:21 2.1 g/dL (2.4-3.5) L 01/12/19 11:21 11.5 mg/dL (17.0-34.0) L 01/17/19 04:20 Triglycerides 179 mg/dL (< 150) H 01/10/19 04:15 6 Units/L (11-82) L 01/07/19 08:46 2.14 ng/mL (0.00-0.15) H 01/16/19 16:09 Cloudy (Clear) A 01/07/19 11:03 Ur Leukocyte Esterase Moderate (Negative) H 01/07/19 11:03 3-5 per hpf (0-3) H 01/07/19 11:03 50-100 per hpf (0-3) H 01/07/19 11:03 Ur Squamous Epith Cells Many per lpf (None-Few) H 01/07/19 11:03 Many per hpf (None-Few) H 01/07/19 11:03 Ur Culture Indicated? YES (NO) A 01/07/19 11:03 Positive (Negative) A 01/17/19 08:42 Crossmatch See Detail 01/17/19 12:25 - Microbiology Findings Microbiology Findings: Microbiology, Last 48 Hours 01/18/19 14:00 Fungal Culture - Preliminary Aspirate Culture is incubating. 01/18/19 14:00 Wound Culture - Preliminary Abdomen Culture is incubating. 01/18/19 14:00 Anaerobic Culture - Preliminary Aspirate Culture is incubating. 01/17/19 01:30 Wound Culture - Preliminary Abdomen Group G Streptococcus 01/17/19 13:05 Legionella Antigen - Final Urine,[place] Streptococcus pneumoniae Antigen (M - Final - Clinical Findings Intake & Output: Intake & Output 01/18/19 01/19/19 01/19/19 23:59 07:59 15:59 Intake Total 160 / 930 221.8 / 600.0 378.2 / 600.0 Output Total 390 / 1105 715 / 1105 Balance 160 / 480 -168.2 / -505.0 -336.8 / -505.0 Weight 93 kg Consult Discharge Plan - Plan Referrals: Ranjit Rodriguez MD [Primary Care Provider] - - Attending Attestation I examined this patient and my medical decision-making was reviewed with the Resident Physician. I agree with the documented findings, disposition and treatment plan as described except to the extent set forth below. We independently had [id number] contact with the patient I spent 32min of Critical Care time with this patient. It involved decision making of high complexity to assess, manipulate, and support vital organ system failure and/or to prevent further life threatening deterioration of the patient's condition. The time involved in the performance of separately reportable procedures was not counted toward critical care time. Patient seen and examined at bedside Labs, radiology, chart personally reviewed. Management was reviewed during multidisciplinary critical care rounds. 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: Patient able to follow commands he is sedated on the vent for comfort goal Aly around 2-3 continue daily sedation holiday Pulm: Acute hypoxic respiratory failure which is secondary to foreign body aspiration and pneumonia status post bronchoscopy without any residual evidence of foreign body obstruction he does have bilateral pneumonia he is on the vent with acceptable oxygenation he is not a candidate for spontaneous breathing trial because he remains tachycardic and I had adjusted his ventilator including his inspiratory time to decrease work of breathing and did improve ventilator mechanics. Cards: history of heart failure with preserved ejection fraction and atrial fibrillation remains tachycardic which is likely secondary to sepsis is currently not requiring vasopressors which is encouraging but has high risk for further deterioration GI: Status post ostomy revision complicated by intra-abdominal infection appreciate general surgery following with this patient Nutrition: Nothing by mouth for now continue total parenteral nutrition Renal: Mixed acidosis with acute kidney injury likely multifactorial. Continue nephro protective strategy UOP Monitored, Cont to Trend sCr and monitor Electrolytes. ID: Severe sepsis on broad-spectrum antibiotics infectious disease following suspected aspiration cultures will be obtained check lactate Heme/Onc: DVT prophylaxis given Endo: Glucose Monitored Integ/MSK: Skin Care per routine ICU Nursing Protocol to prevent ulcers. Lines: All lines examined without evidence of infection : Dispo: Monitor in ICU for critical illness CODE: Full code family updated at bedside including his healthcare proxies (his sister and nephew) <Edin Tate - Last Filed: 01/19/19 15:55> Date of Encounter: 01/19/19 Time of Encounter: 08:22 Assessment and Plan (1) Acute respiratory failure with hypoxia Current Visit: Yes Status: Acute - Last night, patient developed respiratory failure with hypoxia, likely secondary to foreign body aspiration - Rapid response was called overhead, and patient was found to be hypoxic in his room, not following commands; continued to desat after being bagged - Decision was made to intubate; patient subsequently vomited and aspirated; was aggressively suctioned, and large foreign body was removed from airway - ENT documented a large body of dried barium and patients oropharynx, which likely broke off - This morning, airway exam with bronchoscopy was performed; did not show any residual evidence of foreign body obstruction - ABG 01/18: 7.47/24/80/// - ABG 01/19: 7.28/38/271/ Plan: - Continue sedation with propofol and fentanyl - Repeat ABG in the a.m. - Not a candidate for spontaneous breathing trial at this time, as he remains tachycardic - Ventilator settings adjusted today to decrease work of breathing and improve ventilator mechanics (2) Sepsis Current Visit: Yes Status: Acute - Patient is currently meeting 3 out of 4 sirs criteria with leukocytosis, tachycardia, and tachypnea - Potential infection source including pneumonia, intra-abdominal fluid collection, abdominal wound - White count has increased to 22.4 from 16.7 - CT chest 01/16: Bilateral pleural effusions with associated dependent upper and lower airspace disease including consolidation, possibly representing pneumonia - Preliminary wound culture from 01/17/19 demonstrated the presence of group B strep - Patient was originally on vancomycin, cefepime, and Flagyl; per the recommendations of infectious disease, vancomycin and Flagyl will be discontinued - Per the recommendations of ID, Flagyl will be discontinued and clindamycin will be added - Blood cultures have shown no growth to date - Aspirate cultures are ordered and currently pending; will tailor antibiotic therapy accordingly Plan: - Continue vancomycin, cefepime, clindamycin - We will check lactate with a.m. labs (3) Colon obstruction Current Visit: Yes Status: Acute - S/P laparotomy with lysis of adhesions, unavoidable enterotomy, takedown colostomy, L: Resection, transverse colostomy, small bowel resection with primary anastomosis, day 11 - S/P CT guided abdominal abscess drainage with drains placed - Surgery following; continue wound care (4) Pneumonia Current Visit: Yes Status: Acute - Causative organism is unknown - Patient has worsening leukocytosis at 22.4, up from 16.7 - CXR from 01/18 demonstrates left retrocardiac opacity favoring focal airspace disease - Infectious disease is following; continue vancomycin, cefepime, clindamycin (5) Dysphagia Current Visit: Yes Status: Acute - Etiology is unknown at this time - ENT was consulted; reported that CVA is high on the differential - Patient has failed a modified barium swallow - CT soft tissue scan of the neck did not demonstrate an underlying cause - Last night, patient went into respiratory distress requiring intubation - Before he was successfully intubated, he developed vomiting with subsequent aspiration - ENT is following; would appreciate further recommendations (6) Acute kidney injury Current Visit: Yes Status: Acute - Etiology unknown; likely multifactorial in the setting of sepsis and nephrotoxic medications - Creatinine today is elevated at 1.31, slightly improved from yesterday - Receiving vancomycin as part of his antibiotic regimen for the treatment of pneumonia Plan: - Renally dose medications, avoid nephrotoxins if possible (7) Hydronephrosis Current Visit: Yes Status: Acute - Chronic, has [place] catheter (8) Diabetes Current Visit: Yes Status: Acute - Continue insulin History of Present Illness Consult date: 01/19/19 History of present illness: Jason Ventura 73-year-old male with a PMH of rectal cancer and 2005 who was initially admitted on 01/07 with ostomy leakage. He underwent colostomy revision on January 08. He was extubated successfully after surgery. He had developed septic shock requiring vasopressors for short period of time. He was treated with cefepime and Flagyl for surgical contamination following the procedure. He was successfully transferred out of the ICU on the . On the , he was seen by speech therapy and was found to have aspiration. He failed a modified barium swallow study. CT scan of the chest demonstrated the presence of a cast of barium contrast from the oral cavity into the trachea. Due to these findings, ENT was consulted. It was also reported that patient had difficulty speaking and was coughing whenever she swallow. Last night, a rapid response was called overhead, and patient was found to be hypoxic in his room. He was not following commands. He was attempting to breathe on his own. He continued to desaturate even after being bagged. This decision was made to intubate. He subsequently vomited and aspirated. He was aggressively suctioned, and a large foreign body was removed from his airway. After this, respiratory therapy was successfully able to intubate him. ENT had documented a large body of dried barium in the patients oropharynx, which likely broke off. He remains on broad-spectrum antibiotics vancomycin, cefepime, and Flagyl. White count has increased from yesterday to 22.7 from 16.7. Airway examination with bronchoscopy was performed this morning to rule out any further obstruction. This discussion was had with the family comments consent was obtained. Infectious disease is still following; we are continuing antibiotics for suspected aspiration pneumonia. He is currently intubated and sedated, and does not appear to be in any acute distress at this time. Past Med Surg Social Fam HX - Past Medical History Medical history: atrial fibrillation, cancer, coronary artery disease, diabetes, glaucoma, kidney stones, renal disease Additional medical history: rectal cancer, GI bleed r/t Xarelto. Psychiatric history: anxiety, depression - Past Surgical History Surgical History: pacemaker/AICD, other Additional surgical history: colon resection, hernia repair - 11/02/2017; eye sx., Pacer. - Social History Smoking Status: Never smoker Smokeless Tobacco Status: No Alcohol use: none Drug use: none - Family History Father Living Status: Hx Family Cardiac Disorders: Yes Mother Living Status: ROS unobtainable: due to endotracheal tube, due to mental status All Systems: The remainder of the systems were reviewed and are negative Physical Examination Vital Signs: Vital Signs, Last 4 Hours Temp Pulse Resp BP Pulse Ox 01/19/19 06:00 106 26 102/52 94 01/19/19 05:30 98.6 F 114 25 95/50 97 01/19/19 05:29 25 102/53 100 01/19/19 05:00 114 27 102/53 100 01/19/19 04:48 98.6 F 114 28 119/107 100 01/19/19 03:51 25 91 General: Intubated, sedated; no acute distress noted Head: atraumatic, normocephalic; ET tube in place Eye: No scleral icterus Neck: Supple, trachea midline; No lymphadenopathy Respiratory: Diminished breath sounds bilaterally, bilateral rhonchi, no wheezing/rales Cardiovascular: RRR, +S1, +S2; no murmurs, rubs, gallops Abdomen: Soft, distended; Midline abdominal incision, colostomy bag in place Extremities: 1+ edema in upper and lower extremities Neurological: Sedated; no response to stimuli Psychiatric: Unable to assess Skin: Dry, intact Ventilator Settings Ventilator Settings: Ventilator Settings, Last 8 Hours Ventilator Tidal Volume 500 Setting Ventilator Tidal Volume 500 Setting Ventilator Tidal Volume 500 Setting Ventilator Tidal Volume 500 Setting Ventilator Tidal Volume 500 Setting Ventilator Respiratory Rate 14 Setting Ventilator Respiratory Rate 14 Setting Ventilator Respiratory Rate 14 Setting Ventilator Respiratory Rate 14 Setting Ventilator Respiratory Rate 14 Setting Actual Respiratory Rate 26 Actual Respiratory Rate 23 Actual Respiratory Rate 26 Actual Respiratory Rate 28 Positive End Expiratory 5 Pressure Positive End Expiratory 5 Pressure Positive End Expiratory 5 Pressure Positive End Expiratory 5 Pressure Positive End Expiratory 5 Pressure Peak Inspiratory Airway 20 Pressure Peak Inspiratory Airway 18 Pressure Peak Inspiratory Airway 18 Pressure Peak Inspiratory Airway 20 Pressure Results - Laboratory Findings CBC and BMP: 01/19/19 03:44 01/19/19 03:44 ABG ABG pH 7.28 pH Units (7.32-7.45) L 01/19/19 05:36 ABG pCO2 38 mmHg (35-45) 01/19/19 05:36 ABG pO2 271 mmHg (85-104) H 01/19/19 05:36 ABG O2 Saturation 100 % (95-98) H 01/19/19 05:36 PT/INR, D-dimer PT 15.5 Seconds (9.4-12.1) H 01/14/19 17:30 Abnormal lab findings: Abnormal lab results WBC 22.4 K/mcL (4.3-11.1) H 01/19/19 03:44 RBC 3.33 M/mcL (4.19-5.50) L 01/19/19 03:44 Hgb 9.2 g/dL (12.9-16.9) L 01/19/19 03:44 Hct 29.8 % (37.5-50.1) L 01/19/19 03:44 MCH 27.6 pg (28.0-33.3) L 01/19/19 03:44 MCHC 30.9 g/dL (31.6-35.5) L 01/19/19 03:44 RDW 19.0 % (11.5-14.5) H 01/19/19 03:44 Plt Count 434 K/mcL (140-400) H 01/19/19 03:44 12.0 % (0-4) H 01/19/19 03:44 2.0 % (0) H 01/19/19 03:44 4.0 % (0) H 01/16/19 05:12 18.4 K/mcL (1.6-8.9) H 01/19/19 03:44 0.5 K/mcL (0.6-4.6) L 01/11/19 03:45 1.8 K/mcL (0.0-1.3) H 01/19/19 03:44 Nucleated RBCs/100 WBC 0.1 /100 WBC (0) H 01/18/19 05:40 Present (Not Present) A 01/16/19 05:12 Present (Not Present) A 01/13/19 04:00 1+ (Not Present) A 01/19/19 03:44 Present (Not Present) A 01/13/19 04:00 1+ (Not Present) A 01/19/19 03:44 Present (Not Present) A 01/13/19 04:00 1+ (Not Present) A 01/11/19 03:45 1+ (Not Present) A 01/11/19 03:45 ESR >= 130 mm/hr (0-10) H 01/17/19 04:20 PT 15.5 Seconds (9.4-12.1) H 01/14/19 17:30 APTT 23.2 Seconds (26.0-36.0) L D 01/14/19 17:30 Heparin Anti-Xa, Unfract 0.00 IU/mL (0.30-0.70) L 01/14/19 17:30 ABG pH 7.28 pH Units (7.32-7.45) L 01/19/19 05:36 ABG pCO2 24 mmHg (35-45) L 01/18/19 00:36 ABG pO2 271 mmHg (85-104) H 01/19/19 05:36 ABG HCO3 18 mEq/L (21-27) L 01/19/19 05:36 ABG Total CO2 19 mEq/L (20-26) L 01/19/19 05:36 ABG O2 Saturation 100 % (95-98) H 01/19/19 05:36 ABG Base Excess -8 mEq/L (-2 to 3) L 01/19/19 05:36 Sodium 128 mEq/L (136-145) L 01/14/19 09:10 Potassium 5.4 mEq/L (3.5-5.1) H 01/14/19 09:10 Chloride 111 mEq/L (98-107) H 01/19/19 03:44 Carbon Dioxide 17 mEq/L (23-29) L 01/19/19 03:44 BUN 48 mg/dL (8-23) H 01/19/19 03:44 1.31 mg/dL (0.70-1.30) H 01/19/19 03:44 Est GFR ( Amer) 57 (> 60) L 01/15/19 01:29 Est GFR (Non-Af Amer) 53 (> 60) L 01/19/19 03:44 37 (6-26) H 01/19/19 03:44 Glucose 215 mg/dL (70-105) H 01/19/19 03:44 POC Glucose 210 mg/dL (70-99) H 01/18/19 11:20 6.2 % (-5.6) H 01/07/19 08:46 307 (280-300) H 01/19/19 03:44 Lactic Acid 2.4 mmol/L (0.5-2.2) H 01/10/19 00:14 Calcium 8.3 mg/dL (8.6-10.3) L 01/19/19 03:44 Venous Ioniz Calcium 1.08 mmol/L (1.15-1.35) L 01/11/19 04:14 Phosphorus 6.0 mg/dL (2.7-4.5) H 01/14/19 09:10 Iron < 10 mcg/dL (65-175) L 01/18/19 05:40 98 mg/dL (203-362) L 01/18/19 05:40 AST 9 Units/L (13-39) L 01/12/19 11:21 167 mg/L (Less than 10) H 01/17/19 04:20 B-Natriuretic Peptide 300 pg/mL (Less than 100) H 01/09/19 15:18 4.4 g/dL (6.4-8.9) L 01/12/19 11:21 2.3 g/dL (3.5-5.7) L 01/12/19 11:21 2.1 g/dL (2.4-3.5) L 01/12/19 11:21 11.5 mg/dL (17.0-34.0) L 01/17/19 04:20 Triglycerides 179 mg/dL (< 150) H 01/10/19 04:15 6 Units/L (11-82) L 01/07/19 08:46 2.14 ng/mL (0.00-0.15) H 01/16/19 16:09 Cloudy (Clear) A 01/07/19 11:03 Ur Leukocyte Esterase Moderate (Negative) H 01/07/19 11:03 3-5 per hpf (0-3) H 01/07/19 11:03 50-100 per hpf (0-3) H 01/07/19 11:03 Ur Squamous Epith Cells Many per lpf (None-Few) H 01/07/19 11:03 Many per hpf (None-Few) H 01/07/19 11:03 Ur Culture Indicated? YES (NO) A 01/07/19 11:03 Positive (Negative) A 01/17/19 08:42 Crossmatch See Detail 01/17/19 12:25 - Microbiology Findings Microbiology Findings: Microbiology, Last 48 Hours 01/17/19 01:30 Wound Culture - Preliminary Abdomen Group G Streptococcus 01/17/19 13:05 Legionella Antigen - Final Urine,[place] Streptococcus pneumoniae Antigen (M - Final - Clinical Findings Intake & Output: Intake & Output 01/18/19 01/18/19 01/19/19 15:59 23:59 07:59 Intake Total 480 / 820 160 / 820 121.8 / 121.8 Output Total 300 / 450 390 / 390 Balance 180 / 370 160 / 370 -268.2 / -268.2 Weight 93 kg
--- NOTE | 2019-01-19 07:42 | Event Note ---
Date of Encounter: 01/19/19 Time of Encounter: 07:41 Patient transferred ICU and I have respiratory failure likely secondary to foreign-body aspiration intubated in stable gas exchange presently patient will need to airway examination with bronchoscopy to rule out any further obstruction explained procedure in detail and consent was obtained from the patient's healthcare proxies including his nephew and sister at bedside A bronchoscopy is recommended. The procedure , risks, benefits, complications, and expected outcomes have been reviewed. Benefits of diagnosis, as well as risks to include bleeding, infection, pneumothorax which may require surgical intervention, and in a small population. The patient is aware that sometimes test is nondiagnostic. Discussed with patient and agrees to proceed. Full consult note to come
[2019-01-19] MEDS ORDERED: Lidocaine Viscous Oral Soln 15 ML SOLUTION ONE (08:07)
[2019-01-19] MEDS ORDERED: *HR* Midazolam HCl 5 MG/5 ML VIAL IVP ONE ×3 (08:24→09:14)
[2019-01-19] MEDS: Pantoprazole 40 MG VIAL IVP SCH (09:10)
[2019-01-19] MEDS ORDERED: *HR* Etomidate 20 MG/10 ML AMPUL IVP ONE (09:14)
--- NOTE | 2019-01-19 09:44 | Infectious Disease Progress No ---
ID Progress Note Date of Encounter: 01/19/19 Time of Encounter: 09:45 - Subjective Subjective: The patient is intubated and sedated at time of examination. He is not responsive to verbal or physical stimuli. He had no acute problems overnight according to the nurse. He does continue to have fluid output per his FARIDA drains. - Objective CBC & Chem 7: 01/19/19 03:44 01/19/19 03:44 - Line Documentation Line Documentation: PICC Line (Right upper extremity) - Exam Vitals: Temp Pulse Resp BP Pulse Ox 98.6 F 106 34 105/66 93 01/19/19 05:30 01/19/19 06:00 01/19/19 07:48 01/19/19 07:48 01/19/19 07:48 Exam: Gen: Vitals noted. Sedated and intubated. Eyes: anicteric sclerae, moist conjunctivae HENT: Atraumatic; oropharynx clear, ET tube in place, no maceration is noted around tube. There are copious oral secretions Neck: Trachea midline; supple, no thyromegaly or lymphadenopathy Cardiac: RRR, +S1/S2 present, no murmurs, rubs or gallops Pulmonary: Scattered wheezes heard throughout however significantly more so on the right than the left. No rhonchi noted rales Abdomen: soft, No HSM. There is dressing in place over the site of prior operation. PEG in place with surrounding dressing. FARIDA in place x2 with brown fluid return. MSK: ROM intact, no joint swelling noted Extremities: 2+ BLE edema, nontender calf, no cyanosis or clubbing Skin: Normal temperature, turgor and texture; no rash, ulcers or subcutaneous nodules Neuro: Sedated, ventilated. - Assessment and Plan (1) Sepsis Current Visit: Yes Status: Acute The patient had three SIRS criteria. Likely secondary to intra-abdominal fluid collections and possible aspiration PNA. WBC continues to trend up, but bandemia resolved. Tachycardia improved. Afebrile. Blood cultures drawn 01/09/19 are negative x 2 sets. Repeat blood cultures drawn 01/11/19 are NGTD x [address] Chest 01/16 shows bilateral pleural effusions with associated dependent upper and lower lobe airspace disease including consolidation, atelectasis and/or pna CT Abd/pelv 01/16 small peritoneal air possibly post-surgical, mild small bowel loops, gas within the nondependent urinary bladder which may relate due to rec ent instrumentation Wound culture 01/17/19 positive Group g strep Antibiotics Cefepime 2g q12h Flagyl 500mg q8 Vancomycin Per pharmacy Diflucan 400mg IV daily Recommendations -Group G strep adequately covered with 4th Gen cephalosporin and Vancomycin -Will stop flagyl and Vanc, Start Clindamycin 600mg IV q8h -Cultures continue to be pending -Management of vent per pulmonology Qualifiers: Sepsis type: Streptococcus, other Qualified Code(s): A40.8 - Other streptococcal sepsis SNOMED Code(s): 65600552 (2) Colostomy dysfunction Current Visit: Yes Status: Resolved Likely secondary to stenosis at colostomy site. Status post MARCY, unavoidable enterotomies, takedown colostomy and left colon resection, transverse colostomy, and SBR with primary anastamosis, and gastrostomy tube placement 01/08/[address] Cerda. Surgical site with foul-smelling drainage and wound dehiscence. Wound culture positive for GGS. Currently on Vanc, Cefepime. Stop flagyl + Vanc, start clindamycin. SNOMED Code(s): 74318650 (3) Dysphagia Current Visit: Yes Status: Acute Dysphagia, patient has failed modified barium swallow. Unknown cause of patient's dysphagia at this time. Although it is possible that the patient has damaged her vocal cords due to int ubation, he has not been investigated. Additionally, the patient's family says that he has also been confused. CT Soft tissue neck was unrevealing for cause. Further workup and treatment per the primary team. Qualifiers: Dysphagia type: oropharyngeal phase Qualified Code(s): R13.12 - Dysphagia, oropharyngeal phase SNOMED Code(s): 15048548, 301492945 (4) Abdominal pain Current Visit: Yes Status: Acute Abdominal pain, secondary to colostomy dysfunction initially, but now concern for intra-abdominal abscess. Management per primary team and acute care surgery Qualifiers: Abdominal location: generalized Qualified Code(s): R10.84 - Generalized abdominal pain SNOMED Code(s): 85260977 (5) Acute kidney injury superimposed on CKD Current Visit: Yes Status: Acute TONO on CKD3. Patient presented with elevated serum creatinine which worsened during stay. Creatinine continues to trend upward, will Dose-adjust medications and avoid nephrotoxins as able. 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 SNOMED Code(s): 66198099 Consult Discharge Plan - Plan Referrals: Ranjit Rodriguez MD [Primary Care Provider] - - Attending Attestation I examined this patient and my medical decision-making was reviewed with the Resident Physician. I agree with the documented findings, disposition and treatment plan as described except to the extent set forth below. Assessment and plan: 1.Sepsis likely due to aspiration pneumonia plus intra abodminal process 2.Colostomy dysfunction 3.Dysphagia 4.Confusion 5.Encephalopathy 6.Abdominal pain 7.Concern for aspiration pneumonia 8.Diabetes mellitus type 2 9.Atrial fibrillation 10.Acute kidney injury Recommendations: As for the group G Streptococcus, patient is already on cephalosporin which I believe should has adequate treatment Patient aspirated significantly status post bronchoscopy. Discussed with the pulmonary team Dr. Steele. Apparently there was a lot of purulence on the bronchoscopy and a lot of aspiration. For now continue cefepime, Diflucan and clindamycin and will make further recommendations based on the culture results.
--- NOTE | 2019-01-19 09:54 | Electrocardiograph Report ---
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
[2019-01-19] MEDS: Artificial Tears SOLN 15 ML BOTTLE BOTH EYES SCH ×4 (09:55→20:17)
[2019-01-19] MEDS: MetroNIDAZOLE 500 MG/100 ML 500 MG/100 ML BAG IVPB SCH (09:55)
[2019-01-19] MEDS: Chlorhexidine Rinse 15 ML MOUTHWASH MM SCH ×2 (09:57→20:20)
[2019-01-19] MEDS: Fluconazole 400 MG/200 ML 400 MG/200 ML BAG IVPB SCH (09:57)
[2019-01-19] MEDS: *HR* Amiodarone 200 MG TABLET PO SCH (09:57)
[2019-01-19] MEDS: Dorzolamide/Timolol 1 DROP RIGHT EYE SCH ×2 (09:57→20:20)
[2019-01-19] MEDS: Sodium Ferric Gluconat/Sucrose 125 MG in 0.9 % Sodium Chloride 100 ML IVPB SCH (09:58)
[2019-01-19] MEDS: Insulin DETEMIR 100 UNIT/ML X5UNITS SQ SCH (11:31)
--- NOTE | 2019-01-19 11:54 | AcuteCareSurgery Progress Note ---
<Lu Calix - Last Filed: 01/19/19 12:07> Date of Encounter: 01/19/19 Time of Encounter: 11:52 - Assessment and Plan (1) Colon obstruction Current Visit: Yes Status: Acute Status post laparotomy with lysis of adhesions, unavoidable enterotomy, takedown colostomy, left colon resection, transverse colostomy, small bowel resection wi th primary anastomosis day 11 Status post interventional radiology CT-guided abdominal abscess drainage with drains placed 2. Purulent fluid removed. Patient had aspiration event this morning of what was believed to be the dried barium noted on ENT exam. He is intubated, sedated and in the ICU Worsening leukocytosis, currently 22.4 Wound culture positive for group G Streptococcus Cultures remain pending Antibiotic coverage-cefepime, Flagyl, Diflucan, vancomycin Bowel rest, patient to receive nothing per G-tube, patient to be restarted on TPN Continue monitoring output of colostomy FARIDA drains times to have some serosanguineous drainage- continue to monitor output Continue wound care, daily dressing and packing changes Subcutaneous heparin for DVT prophylaxis (2) Sepsis Current Visit: Yes Status: Acute Secondary to ischemic bowel, purulent intrabdominal abscess x2, pneumonia, aspiration IR performed CT guided abscess drainage and placed 2 FARIDA drains yesterday. Aspiration event of foreign body, suspected to be dried barium from oropharynx possibly some gastric aspiration as well. Antibiotic coverage currently includes cefepime, Flagyl, Diflucan, vancomycin Worsening leukocytosis, currently 22.4, tachycardic, tachypneic Patient to undergo bronchoscopy Management per primary Qualifiers: Sepsis type: Streptococcus, other Qualified Code(s): A40.8 - Other str eptococcal sepsis (3) Aspiration into airway Current Visit: Yes Status: Acute Patient had episode this morning of aspiration, suspected to be foreign body of dried barium in oropharynx, possibly some gastric aspiration as well Patient reintubated, currently sedated in the ICU ICU team to manage vent Qualifiers: Encounter type: initial encounter Qualified Code(s): T17.908A - Unspecified foreign body in respiratory tract, part unspecified causing other injury, initial encounter (4) Acute respiratory failure with hypoxia Current Visit: Yes Status: Acute Patient intubated, sedated in the ICU Aspiration event this morning with foreign body, possible gastric secretions ICU team to manage (5) DVT prophylaxis Current Visit: Yes Status: Acute SCDs Subjective Narrative: Patient seen and examined at bedside today. ENT was consultative yesterday for dysphasia, dysarthria, noted what appeared to be dried barium. A rapid response was called on the patient this morning, he was in respiratory distress and desaturating. It is believed that the patient aspirated a large body of dried b arium possible gastric fluid. He was intubated, sedated and transferred to the ICU. ICU team plans on bronchoscopy today. The patient was able to follow commands during my exam. Review of systems unobtainable. Objective Vital Signs - Last 8 Hours Temp Pulse Resp BP Pulse Ox 01/19/19 11:23 18 86/54 93 01/19/19 10:00 96 19 92/41 93 01/19/19 09:00 98 18 106/67 93 01/19/19 08:00 98.2 F 113 32 121/56 95 01/19/19 07:48 34 105/66 93 01/19/19 07:00 101 34 103/53 94 01/19/19 06:00 106 26 102/52 94 01/19/19 05:30 98.6 F 114 25 95/50 97 01/19/19 05:29 25 102/53 100 01/19/19 05:00 114 27 102/53 100 01/19/19 04:48 98.6 F 114 28 119/107 100 Intake and Output 01/18/19 01/19/19 01/19/19 23:59 07:59 15:59 Intake Total 160 / 930 221.8 / 521.8 300 / 521.8 Output Total 390 / 840 450 / 840 Balance 160 / 480 -168.2 / -318.2 -150 / -318.2 Intake: IV Fluids 100 / 630 161.8 / 461.8 300 / 461.8 Diprivan 1,000 mg In 100 ml @ 5 21.8 / 21.8 MCG/KG/MIN 2.859 mls/hr IVC . Q24H [facility] Rx#:[id number] Maxipime 2,000 MG In Water for 40 / 40 inj. (sterile) 20 ML @ 300 mls/ hr IVP Q12H DANK Rx#:[id number] Diflucan Premix 400 MG/200 ML 200 / 200 400 mg In 200 ml @ 200 mls/hr IVPB DAILY DANK Rx#:[id number] Flagyl Premix 500 MG/100 ML 500 100 / 300 100 / 200 100 / 200 mg In 100 ml @ 100 mls/hr IVPB Q8HR DANK Rx#:[id number] Oral 0 / 0 0 / 0 Free Water Intake Amount 60 / 300 60 / 60 Output: Stool 350 / 350 Catheter 450 / 450 Wound Drainage 40 / 40 0 / 40 Left Abd, FARIDA # 2 20 / 20 0 / 20 Left Abd, FARIDA #1 20 / 20 0 / 20 Other: # Urine Diapers 1 Weight 93 kg Blood Glucose* 121 253 210 Patient Weight 01/19/19 23:59 Weight 93 kg - General physical appearance well developed, well nourished, moderate distress - Eyes PERRL, normal ocular movement - ENT normal nares, dry mucosa - Neck Neck exam: trachea midline, no venous distension - Respiratory normal expansion, normal respiratory effort, other (Coarse breath sounds) - Cardiovascular Cardiovascular exam: Present: tachycardia, no murmurs/rubs/gallops. Absent: JVD - Abdomen Abdomen: Present: bowel sounds present, soft, non tender. Absent: distended - Incision Incision: Present: clean and dry, intact (Areas of packing, minimal drainage.). Absent: erythema - Integumentary no rash (Unable to assess as patient intubated, sedated) - Neurologic other (Unable to assess as patient intubated, sedated) - Musculoskeletal normal posture - Psychiatric other (Unable to assess as patient intubated, sedated) - Labs 01/19/19 03:44 01/19/19 03:44 Diabetes panel 01/19/19 Range/Units 03:44 Sodium 139 (136-145) mEq/L Potassium 4.8 (3.5-5.1) mEq/L Chloride 111 H (98-107) mEq/L Carbon Dioxide 17 L (23-29) mEq/L BUN 48 H (8-23) mg/dL Creatinine 1.31 H (0.70-1.30) mg/dL Glucose 215 H (70-105) mg/dL Calcium 8.3 L (8.6-10.3) mg/dL Calcium panel 01/19/19 Range/Units 03:44 Calcium 8.3 L (8.6-10.3) mg/dL Pituitary panel 01/19/19 Range/Units 03:44 Sodium 139 (136-145) mEq/L Potassium 4.8 (3.5-5.1) mEq/L Chloride 111 H (98-107) mEq/L Carbon Dioxide 17 L (23-29) mEq/L BUN 48 H (8-23) mg/dL Creatinine 1.31 H (0.70-1.30) mg/dL Glucose 215 H (70-105) mg/dL Calcium 8.3 L (8.6-10.3) mg/dL Adrenal panel 01/19/19 Range/Units 03:44 Sodium 139 (136-145) mEq/L Potassium 4.8 (3.5-5.1) mEq/L Chloride 111 H (98-107) mEq/L Carbon Dioxide 17 L (23-29) mEq/L BUN 48 H (8-23) mg/dL Creatinine 1.31 H (0.70-1.30) mg/dL Glucose 215 H (70-105) mg/dL Calcium 8.3 L (8.6-10.3) mg/dL Consult Discharge Plan - Plan Referrals: Ranjit Rodriguez MD [Primary Care Provider] - <Ranjit Zhong - Last Filed: 01/19/19 12:20> Date of Encounter: 01/19/19 - Assessment and Plan (1) Colon obstruction Current Visit: Yes Status: Acute Objective Vital Signs - Last 8 Hours Temp Pulse Resp BP Pulse Ox 01/19/19 11:23 18 86/54 93 01/19/19 10:00 96 19 92/41 93 01/19/19 09:00 98 18 106/67 93 01/19/19 08:00 98.2 F 113 32 121/56 95 01/19/19 07:48 34 105/66 93 01/19/19 07:00 101 34 103/53 94 01/19/19 06:00 106 26 102/52 94 01/19/19 05:30 98.6 F 114 25 95/50 97 01/19/19 05:29 25 102/53 100 01/19/19 05:00 114 27 102/53 100 01/19/19 04:48 98.6 F 114 28 119/107 100 Intake and Output 01/18/19 01/19/19 01/19/19 23:59 07:59 15:59 Intake Total 160 / 930 221.8 / 521.8 300 / 521.8 Output Total 390 / 840 450 / 840 Balance 160 / 480 -168.2 / -318.2 -150 / -318.2 Intake: IV Fluids 100 / 630 161.8 / 461.8 300 / 461.8 Diprivan 1,000 mg In 100 ml @ 5 21.8 / 21.8 MCG/KG/MIN 2.859 mls/hr IVC . Q24H DANK Rx#:[id number] Maxipime 2,000 MG In Water for 40 / 40 inj. (sterile) 20 ML @ 300 mls/ hr IVP Q12H DANK Rx#:[id number] Diflucan Premix 400 MG/200 ML 200 / 200 400 mg In 200 ml @ 200 mls/hr IVPB DAILY DANK Rx#:[id number] Flagyl Premix 500 MG/100 ML 500 100 / 300 100 / 200 100 / 200 mg In 100 ml @ 100 mls/hr IVPB Q8HR DANK Rx#:[id number] Oral 0 / 0 0 / 0 Free Water Intake Amount 60 / 300 60 / 60 Output: Stool 350 / 350 Catheter 450 / 450 Wound Drainage 40 / 40 0 / 40 Left Abd, FARIDA # 2 20 / 20 0 / 20 Left Abd, FARIDA #1 20 / 20 0 / 20 Other: # Urine Diapers 1 Weight 93 kg Blood Glucose* 121 253 210 Patient Weight 01/19/19 23:59 Weight 93 kg - Labs 01/19/19 03:44 01/19/19 03:44 Diabetes panel 01/19/19 Range/Units 03:44 Sodium 139 (136-145) mEq/L Potassium 4.8 (3.5-5.1) mEq/L Chloride 111 H (98-107) mEq/L Carbon Dioxide 17 L (23-29) mEq/L BUN 48 H (8-23) mg/dL Creatinine 1.31 H (0.70-1.30) mg/dL Glucose 215 H (70-105) mg/dL Calcium 8.3 L (8.6-10.3) mg/dL Calcium panel 01/19/19 Range/Units 03:44 Calcium 8.3 L (8.6-10.3) mg/dL Pituitary panel 01/19/19 Range/Units 03:44 Sodium 139 (136-145) mEq/L Potassium 4.8 (3.5-5.1) mEq/L Chloride 111 H (98-107) mEq/L Carbon Dioxide 17 L (23-29) mEq/L BUN 48 H (8-23) mg/dL Creatinine 1.31 H (0.70-1.30) mg/dL Glucose 215 H (70-105) mg/dL Calcium 8.3 L (8.6-10.3) mg/dL Adrenal panel 01/19/19 Range/Units 03:44 Sodium 139 (136-145) mEq/L Potassium 4.8 (3.5-5.1) mEq/L Chloride 111 H (98-107) mEq/L Carbon Dioxide 17 L (23-29) mEq/L BUN 48 H (8-23) mg/dL Creatinine 1.31 H (0.70-1.30) mg/dL Glucose 215 H (70-105) mg/dL Calcium 8.3 L (8.6-10.3) mg/dL - Attending Attestation I examined this patient and my medical decision-making was reviewed with the Resident Physician. I agree with the documented findings, disposition and treatment plan as described except to the extent set forth below. The patient is seen and evaluated on morning rounds with the acute care surgery team. The patient sustained an aspiration event yesterday followed by respiratory arrest. He required ventilation. This morning he responded to my voice. We will place his gastrostomy tube to a Salazar bag for decompression. The ostomy is pink and functioning. He did have drainage of intra-abdominal fluid collections. His condition remains critical. We will continue to provide maximum supportive care. Ranjit Zhong MD FACS
[2019-01-19 12:52] LABS: Magnesium 2.2 mg/dL (1.6-2.6); Phosphorous 3.7 mg/dL (2.7-4.5)
[2019-01-19] MEDS: Clindamycin 600 MG/50 ML 600 MG/50 ML IV.SOLN IVPB SCH (15:39)
[2019-01-19] MEDS: *HR* Heparin 5,000 UNIT/ML VIAL SQ SCH (15:40)
[2019-01-19] MEDS ORDERED: Clinimix E 5%-15% SOLUTION 2,000 ML with MVI, adult with vitamin K 10 ML, Trace Eleme... IVC SCH (17:00)
[2019-01-19] MEDS ORDERED: Clinimix E 5%-15% SOLUTION 2,000 ML with MVI, adult with vitamin K 10 ML IVC SCH (17:00)
[2019-01-19 17:06] LABS: Appearance of Body Fluid Cloudy (Clear); Source of Body Fluid RIGHT MIDDLE LOBE LU
[2019-01-19 17:07] LABS: Volume of Body Fluid 15 mL
[2019-01-19] MEDS: Latanoprost 2.5 ML BOTTLE RIGHT EYE SCH (20:51)
[2019-01-19] MEDS: Dexmedetomidine HCl 400 MCG/100 ML MLS IVC SCH (22:31)
[2019-01-20] MEDS: Artificial Tears SOLN 15 ML BOTTLE BOTH EYES SCH ×7 (00:09→23:01)
[2019-01-20] MEDS: Insulin LISPRO 300 UNITS/3 ML VIAL SQ SCH ×7 (00:09→23:35)
[2019-01-20] MEDS: Clindamycin 600 MG/50 ML 600 MG/50 ML IV.SOLN IVPB SCH ×4 (00:11→23:00)
[2019-01-20] MEDS: *HR* Heparin 5,000 UNIT/ML VIAL SQ SCH ×2 (00:11→08:11)
[2019-01-20] MEDS: Norepinephrine 4 MG in D5% in Water 250 ML IVC SCH ×2 (01:08→05:22)
[2019-01-20] MEDS: Dexmedetomidine HCl 400 MCG/100 ML MLS IVC SCH ×4 (03:25→23:01)
[2019-01-20] MEDS: Ipratropium/Albuterol Neb 3 ML IH SCH ×6 (03:44→23:29)
[2019-01-20] MEDS: FentaNYL (PF) 1,000 MCG in 0.9 % Sodium Chloride 80 ML IVC SCH ×3 (03:53→18:48)
[2019-01-20 04:02] LABS: VBG Ionized Calcium 1.18 mmol/L (1.15-1.35)
[2019-01-20 04:58] LABS: Basophils % 0.3 %; Immature Granulocytes % 3.6 % (0-4); Mean Corpuscular Volume 97.1 fL (83.0-100.0); Red Cell Distribution Width 19.5 % (11.5-14.5)
[2019-01-20 04:59] LABS: Calcium 8.2 mg/dL (8.6-10.3); Magnesium 2.4 mg/dL (1.6-2.6); Phosphorous 6.1 mg/dL (2.7-4.5); Potassium 5.8 mEq/L (3.5-5.1)
[2019-01-20 05:00] LABS: Basophils # 0.1 K/mcL (0.0-0.2); Eosinophils # 0.4 K/mcL (0.0-0.6); Eosinophils % 1.6 %; Hematocrit 26.9 % (37.5-50.1); Hemoglobin 7.7 g/dL (12.9-16.9); Lymphocytes # 1.6 K/mcL (0.6-4.6); Lymphocytes % 6.1 %; Mean Corpuscular HGB Conc 28.6 g/dL (31.6-35.5); Mean Corpuscular Hemoglobin 27.8 pg (28.0-33.3); Mean Platelet Volume 11.6 fL (9.4-12.4); Monocytes # 0.7 K/mcL (0.0-1.3); Monocytes % 2.8 %; Neutrophils # 21.8 K/mcL (1.6-8.9); Platelet Count 499 K/mcL (140-400); Red Blood Count 2.77 M/mcL (4.19-5.50); Segmented Neutrophils % 85.6 %; White Blood Count 25.5 K/mcL (4.3-11.1)
[2019-01-20 05:06] LABS: ABG Base Excess -10 mEq/L (-2 to 3); ABG HCO3 18 mEq/L (21-27); ABG Oxygen Saturation 89 % (95-98); ABG PCO2 46 mmHg (35-45); ABG PO2 70 mmHg (85-104); ABG TCO2 19 mEq/L (20-26); Blood Gas Modality ASSIST CONTROL; Blood Gas PEEP 5 cm H2O; Blood Gas VT 500 cc
[2019-01-20] MEDS ORDERED: Insulin LISPRO 300 UNITS/3 ML VIAL SQ ONE (05:21)
[2019-01-20 05:22] LABS: Anisocytosis 1+ (Not Present); Hypochromasia Present (Not Present); Platelet Estimate Increased (Normal)
[2019-01-20] MEDS: Cefepime HCl 2,000 MG in Water for inj. (sterile) 20 ML IVP SCH ×2 (05:30→17:49)
[2019-01-20] MEDS ORDERED: 0.9 % Sodium Chloride 1,000 ML IVC ONE (07:26)
[2019-01-20] MEDS ORDERED: 0.9 % Sodium Chloride 1,000 ML ONE (07:28)
[2019-01-20] MEDS ORDERED: 0.9 % Sodium Chloride 250 ML ONE ×2 (08:09→13:23)
[2019-01-20] MEDS: Chlorhexidine Rinse 15 ML MOUTHWASH MM SCH ×2 (08:10→20:42)
[2019-01-20] MEDS: Pantoprazole 40 MG VIAL IVP SCH (08:11)
[2019-01-20] MEDS: *HR* Amiodarone 200 MG TABLET PO SCH (08:12)
[2019-01-20] MEDS: Dorzolamide/Timolol 1 DROP RIGHT EYE SCH ×2 (08:12→20:42)
--- NOTE | 2019-01-20 08:12 | Pulmonology Progress Note ---
<Avi Steele W - Last Filed: 01/20/19 11:04> Date of Encounter: 01/20/19 Assessment and Plan (1) Postoperative hypovolemic shock Current Visit: Yes Status: Acute Qualifiers: Encounter type: sequela Qualified Code(s): T81.19XS - Other postprocedural shock, sequela (2) Acute diastolic heart failure with preserved ejection fraction Current Visit: Yes Status: Acute Objective PUL Vital signs: Last Vital Signs Temp 99.9 F H 01/20/19 08:14 Pulse 81 01/20/19 08:14 Resp 26 01/20/19 09:32 BP 114/55 01/20/19 09:32 Pulse Ox 93 01/20/19 09:32 Ventilator Settings Ventilator Settings: Ventilator Settings, Last 8 Hours Ventilator Tidal Volume 500 Setting Ventilator Tidal Volume 500 Setting Ventilator Tidal Volume 500 Setting Ventilator Tidal Volume 500 Setting Ventilator Tidal Volume 500 Setting Ventilator Tidal Volume 500 Setting Ventilator Tidal Volume 500 Setting Ventilator Tidal Volume 500 Setting Ventilator Tidal Volume 500 Setting Ventilator Tidal Volume 500 Setting Ventilator Respiratory Rate 20 Setting Ventilator Respiratory Rate 14 Setting Ventilator Respiratory Rate 14 Setting Ventilator Respiratory Rate 14 Setting Ventilator Respiratory Rate 14 Setting Ventilator Respiratory Rate 14 Setting Ventilator Respiratory Rate 14 Setting Ventilator Respiratory Rate 14 Setting Ventilator Respiratory Rate 14 Setting Ventilator Respiratory Rate 14 Setting Actual Respiratory Rate 26 Actual Respiratory Rate 19 Actual Respiratory Rate 18 Actual Respiratory Rate 19 Actual Respiratory Rate 18 Actual Respiratory Rate 19 Actual Respiratory Rate 19 Actual Respiratory Rate 19 Actual Respiratory Rate 27 Positive End Expiratory 5 Pressure Positive End Expiratory 5 Pressure Positive End Expiratory 5 Pressure Positive End Expiratory 5 Pressure Positive End Expiratory 5 Pressure Positive End Expiratory 5 Pressure Positive End Expiratory 5 Pressure Positive End Expiratory 5 Pressure Positive End Expiratory 5 Pressure Positive End Expiratory 5 Pressure Peak Inspiratory Airway 13 Pressure Peak Inspiratory Airway 13 Pressure Peak Inspiratory Airway 12 Pressure Peak Inspiratory Airway 13 Pressure Peak Inspiratory Airway 13 Pressure Peak Inspiratory Airway 13 Pressure Peak Inspiratory Airway 13 Pressure Peak Inspiratory Airway 13 Pressure Peak Inspiratory Airway 13 Pressure Results - Laboratory Findings CBC and BMP: 01/20/19 08:03 01/20/19 08:03 ABG ABG pH 7.20 pH Units (7.32-7.45) L* 01/20/19 05:01 ABG pCO2 46 mmHg (35-45) H 01/20/19 05:01 ABG pO2 70 mmHg (85-104) L 01/20/19 05:01 ABG O2 Saturation 89 % (95-98) L 01/20/19 05:01 PT/INR, D-dimer PT 15.5 Seconds (9.4-12.1) H 01/14/19 17:30 Abnormal lab findings: Abnormal lab results WBC 25.5 K/mcL (4.3-11.1) H 01/20/19 04:25 RBC 2.77 M/mcL (4.19-5.50) L 01/20/19 04:25 Hgb 7.6 g/dL (12.9-16.9) L 01/20/19 08:03 Hct 26.5 % (37.5-50.1) L 01/20/19 08:03 MCH 27.8 pg (28.0-33.3) L 01/20/19 04:25 MCHC 28.6 g/dL (31.6-35.5) L 01/20/19 04:25 RDW 19.5 % (11.5-14.5) H 01/20/19 04:25 Plt Count 499 K/mcL (140-400) H 01/20/19 04:25 12.0 % (0-4) H 01/19/19 03:44 2.0 % (0) H 01/19/19 03:44 4.0 % (0) H 01/16/19 05:12 21.8 K/mcL (1.6-8.9) H 01/20/19 04:25 0.5 K/mcL (0.6-4.6) L 01/11/19 03:45 1.8 K/mcL (0.0-1.3) H 01/19/19 03:44 Nucleated RBCs/100 WBC 0.1 /100 WBC (0) H 01/18/19 05:40 Present (Not Present) A 01/16/19 05:12 Increased (Normal) H 01/20/19 04:25 Present (Not Present) A 01/13/19 04:00 1+ (Not Present) A 01/19/19 03:44 Present (Not Present) A 01/20/19 04:25 1+ (Not Present) A 01/20/19 04:25 Present (Not Present) A 01/13/19 04:00 1+ (Not Present) A 01/11/19 03:45 1+ (Not Present) A 01/11/19 03:45 ESR >= 130 mm/hr (0-10) H 01/17/19 04:20 PT 15.5 Seconds (9.4-12.1) H 01/14/19 17:30 APTT 23.2 Seconds (26.0-36.0) L D 01/14/19 17:30 Heparin Anti-Xa, Unfract 0.00 IU/mL (0.30-0.70) L 01/14/19 17:30 ABG pH 7.20 pH Units (7.32-7.45) L* 01/20/19 05:01 ABG pCO2 46 mmHg (35-45) H 01/20/19 05:01 ABG pO2 70 mmHg (85-104) L 01/20/19 05:01 ABG HCO3 18 mEq/L (21-27) L 01/20/19 05:01 ABG Total CO2 19 mEq/L (20-26) L 01/20/19 05:01 ABG O2 Saturation 89 % (95-98) L 01/20/19 05:01 ABG Base Excess -10 mEq/L (-2 to 3) L 01/20/19 05:01 Sodium 128 mEq/L (136-145) L 01/14/19 09:10 Potassium 5.3 mEq/L (3.5-5.1) H 01/20/19 08:03 Chloride 112 mEq/L (98-107) H 01/20/19 04:25 Carbon Dioxide 17 mEq/L (23-29) L 01/20/19 04:25 BUN 56 mg/dL (8-23) H 01/20/19 04:25 1.88 mg/dL (0.70-1.30) H 01/20/19 04:25 Est GFR ( Amer) 43 (> 60) L 01/20/19 04:25 Est GFR (Non-Af Amer) 35 (> 60) L 01/20/19 04:25 30 (6-26) H 01/20/19 04:25 Glucose 248 mg/dL (70-105) H 01/20/19 04:25 POC Glucose 111 mg/dL (70-99) H 01/19/19 23:34 6.2 % (-5.6) H 01/07/19 08:46 316 (280-300) H 01/20/19 04:25 Lactic Acid 2.4 mmol/L (0.5-2.2) H 01/10/19 00:14 Calcium 8.2 mg/dL (8.6-10.3) L 01/20/19 04:25 Venous Ioniz Calcium 1.08 mmol/L (1.15-1.35) L 01/11/19 04:14 Phosphorus 6.1 mg/dL (2.7-4.5) H 01/20/19 04:25 Iron < 10 mcg/dL (65-175) L 01/18/19 05:40 98 mg/dL (203-362) L 01/18/19 05:40 AST 9 Units/L (13-39) L 01/12/19 11:21 23 Units/L (30-223) L 01/20/19 08:03 167 mg/L (Less than 10) H 01/17/19 04:20 B-Natriuretic Peptide 300 pg/mL (Less than 100) H 01/09/19 15:18 4.4 g/dL (6.4-8.9) L 01/12/19 11:21 2.3 g/dL (3.5-5.7) L 01/12/19 11:21 2.1 g/dL (2.4-3.5) L 01/12/19 11:21 11.5 mg/dL (17.0-34.0) L 01/17/19 04:20 Triglycerides 179 mg/dL (< 150) H 01/10/19 04:15 6 Units/L (11-82) L 01/07/19 08:46 2.14 ng/mL (0.00-0.15) H 01/16/19 16:09 Cloudy (Clear) A 01/07/19 11:03 Ur Leukocyte Esterase Moderate (Negative) H 01/07/19 11:03 3-5 per hpf (0-3) H 01/07/19 11:03 50-100 per hpf (0-3) H 01/07/19 11:03 Ur Squamous Epith Cells Many per lpf (None-Few) H 01/07/19 11:03 Many per hpf (None-Few) H 01/07/19 11:03 Ur Culture Indicated? YES (NO) A 01/07/19 11:03 Fluid Appearance Cloudy (Clear) A 01/19/19 08:30 Positive (Negative) A 01/17/19 08:42 Crossmatch See Detail 01/17/19 12:25 - Microbiology Findings Microbiology Findings: Microbiology, Last 48 Hours 01/18/19 14:00 Wound Culture - Preliminary Abdomen Gram Positive Cocci 01/19/19 08:30 Fungal Culture - Preliminary Right Middle Lobe Lung Culture is incubating. 01/17/19 01:30 Wound Culture - Preliminary Abdomen Group G Streptococcus Gram Positive Cocci Gram Positive Cocci#2 01/19/19 08:30 Respiratory Culture - Preliminary Right Middle Lobe Lung 01/18/19 14:00 Fungal Culture - Preliminary Aspirate Culture is incubating. 01/18/19 14:00 Anaerobic Culture - Preliminary Aspirate Culture is incubating. - Clinical Findings Intake & Output: Intake & Output 01/19/19 01/20/19 01/20/19 23:59 07:59 15:59 Intake Total 390 / 1090.0 1474 / 1474 0 / 1474 Output Total 428 / 1533 230 / 230 Balance -38 / -443.0 1244 / 1244 0 / 1244 Weight 95.3 kg Consult Discharge Plan - Plan Referrals: Ranjit Rodriguez MD [Primary Care Provider] - - Attending Attestation I examined this patient and my medical decision-making was reviewed with the Resident Physician. I agree with the documented findings, disposition and treatment plan as described except to the extent set forth below. We independently had [id number] contact with the patient I spent 45 min of Critical Care time with this patient. It involved decision making of high complexity to assess, manipulate, and support vital organ system failure and/or to prevent further life threatening deterioration of the patient's condition. The time involved in the performance of separately reportable procedures was not counted toward critical care time. Patient seen and examined at bedside Labs, radiology, chart personally reviewed. Management was reviewed during multidisciplinary critical care rounds. 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 plan to deeply sedate today and control of ventilator over the next 24 hours. We will increase his minute ventilation as tolerated with keep an eye to the 6 mL per KG guidelines for ARDS net protocol he has a significant pneumonia which is complicating his treatment he is status post bronchoscopy without evidence of foreign body obstruction Cards: Septic shock on vasopressor goal map around 65 hypotension complicated by acidosis. He has a history of underlying diastolic dysfunction. GI: GI prophylaxis given he is status post ostomy revision complicated by intra- abdominal infection general surgery following sent for CT of the abdomen to rule out any gastrointestinal bleeding/retroperitoneal bleeding as well as any new fluid accumulations which could account for his decompensation Nutrition: He is on enteral nutrition per dietary recommendations plan to hold potassium and phosphorus because of worsening kidney function Renal: Acute kidney injury which is worsening he oliguric and his suspected third spacing of fluid but intravascular volume depletion will give crystalloid challenge and dose colloidin through the course of the day for intravascular volume expansion. Hyperkalemia which is rising secondary to acidosis and renal failure will need to follow this closely and trend will treat medically for now may need to consult nephrology for renal replacement based upon clinical course. UOP Monitored, Cont to Trend sCr and monitor Electrolytes. ID: Septic shock I suspect his decompensation is secondary to pneumonia cannot rule out infected intra-abdominal source he also has recent group A strep wound infection he is on broad-spectrum antibiotics we will add MRSA coverage and the switch from fluconazole to micafungin for fungal coverage empirically pending workup infectious disease is following with this patient Heme/Onc: Acute drop in H&H overnight unclear if this is secondary to hemorrhage or if this is suppression from critical illness and sepsis we will trend H&H and given decompensation would not have an earlier transfusion for rule out thresho ld and I will give him 2 units PRBCs which will also help with the volume expansion Endo: Glucose Monitored Integ/MSK: Skin Care per routine ICU Nursing Protocol to prevent ulcers. Lines: All lines examined without evidence of infection : Dispo: Monitor in ICU for critical illness CODE: Full; family updated at bedside <Edin Tate - Last Filed: 01/20/19 11:46> Date of Encounter: 01/20/19 Time of Encounter: 11:42 Assessment and Plan (1) Acute respiratory failure with hypoxia Current Visit: Yes Status: Acute - On 01/19: Patient developed respiratory failure with hypoxia, likely secondary to foreign body aspiration - Rapid response was called overhead, and patient was found to be hypoxic in his room, not following commands; continued to desat after being bagged - Decision was made to intubate; patient subsequently vomited and aspirated; was aggressively suctioned, and large foreign body was removed from airway - ENT documented a large body of dried barium and patients oropharynx, which likely broke off - Airway exam with bronchoscopy was performed; did not show any residual evidence of foreign body obstruction - ABG 01/18: 7.47/24/80// - ABG 01/19: 7.28/38/271/ - ABG 01/20: 7.20/46/70// Vent settings: Respiratory rate 14, inspired O2 60%, tidal volume 500, PEEP 5 Plan: - Continue sedation with propofol and fentanyl - Repeat ABG in the a.m. - Not a candidate for spontaneous breathing trial at this time, as he remains tachycardic (2) Sepsis Current Visit: Yes Status: Acute - Patient is currently meeting 3 out of 4 SIRS criteria with leukocytosis, tachycardia, and tachypnea - Potential infection source including pneumonia, intra-abdominal fluid collection, abdominal wound - White count has increased to 25.5 from 22.4 - CT chest 01/16: Bilateral pleural effusions with associated dependent upper and lower airspace disease including consolidation, possibly representing pneumonia - Preliminary wound culture from 01/17/19 demonstrated the presence of group B strep - Blood cultures have shown no growth to date - Aspirate cultures are ordered and currently pending; will tailor antibiotic therapy accordingly Plan: - Continue vancomycin, cefepime, clindamycin; fluconazole switched to micafungin today - We will check lactate with a.m. labs (3) Anemia Current Visit: Yes Status: Acute - Etiology unknown at this time - Hemoglobin has dropped to 7.7 from 9.2 - No overt bleeding sources are seen at this time Plan: - Transfuse 2 units of packed red blood cells - Trend hemoglobin every 6 hours - CT scan of the abdomen and pelvis has been ordered to rule out intra-abdominal hemorrhage (4) Acute kidney injury Current Visit: Yes Status: Acute - Etiology unknown; likely multifactorial in the setting of sepsis and nephrotoxic medications - Creatinine has increased to 1.88 from 1.31 - Patient has had poor urine output in the last 24 hours - Receiving vancomycin as part of his antibiotic regimen for the treatment of pneumonia Plan: - Renally dose medications, avoid nephrotoxins if possible - 1 bolus of normal saline given earlier this morning - Acute renal failure workup: CK, urine eosinophils, urine sodium, urine creatinine, urine urea - 4 doses of 25% albumin have been ordered (5) Hyperkalemia Current Visit: Yes Status: Acute - Patient noted to have an elevated potassium at 5.8 this morning - Repeat potassium 8 AM was 5.3 - We will continue to closely monitor; repeat potassium pending this afternoon - Likely secondary to poor renal function (6) Pneumonia Current Visit: Yes Status: Acute - Causative organism is unknown - Patient has worsening leukocytosis at 25.5 from 22.4 - CXR from 01/18 demonstrates left retrocardiac opacity favoring focal airspace disease - Infectious disease is following; continue vancomycin, cefepime, clindamycin, m icafungin (7) Colon obstruction Current Visit: Yes Status: Acute - S/P laparotomy with lysis of adhesions, unavoidable enterotomy, takedown colostomy, L: Resection, transverse colostomy, small bowel resection with primary anastomosis, day 11 - S/P CT guided abdominal abscess drainage with drains placed - Surgery following; continue wound care (8) Hydronephrosis Current Visit: Yes Status: Acute - Chronic, has payton catheter (9) Diabetes Current Visit: Yes Status: Acute - Continue insulin Subjective Principal diagnosis: Postop colectomy and colostomy Interval history: This morning, patient was noted to have a drop in his hemoglobin to 7.7 from 9.2. No overt source of bleeding is observed at this time. A CT scan of the abdomen has been ordered to rule out intra-abdominal hemorrhage. 2 units of packed red blood cells were ordered this morning. He also has worsening renal function in the setting of hypotension. His creatinine has increased to 1.88 from 1.31. He is also now requiring Levophed for pressure support. Labs also demonstrated an elevated potassium this morning at 5.8. Repeat potassium at 8 AM was 5.3. He was given a 1 L bolus of normal saline. Fluconazole has been switched to micafungin. Urine output is noted to be low. Multiple urine studies have been ordered for acute renal failure workup, including urine sodium and urine creatinine. Lactate is within normal limits. We will continue to closely monitor for signs of deterioration. He is currently intubated and sedated, and does not appear to be in any acute distress at this time. Objective PUL Vital signs: Last Vital Signs Temp 99.9 F H 01/20/19 07:55 Pulse 75 01/20/19 07:00 Resp 19 01/20/19 07:00 BP 101/50 01/20/19 07:00 Pulse Ox 94 01/20/19 07:00 General: Intubated, sedated; no acute distress noted Head: atraumatic, normocephalic; ET tube in place Eye: No scleral icterus Neck: Supple, trachea midline; No lymphadenopathy Respiratory: Diminished breath sounds bilaterally, bilateral rhonchi, no wheezing/rales Cardiovascular: RRR, +S1, +S2; no murmurs, rubs, gallops Abdomen: Soft, distended; Midline abdominal incision, colostomy bag in place Extremities: 1+ edema in upper and lower extremities; soft restraints in place on the upper extremities Neurological: Sedated; no response to stimuli Psychiatric: Unable to assess Skin: Dry, intact Ventilator Settings Ventilator Settings: Ventilator Settings, Last 8 Hours Ventilator Tidal Volume 500 Setting Ventilator Tidal Volume 500 Setting Ventilator Tidal Volume 500 Setting Ventilator Tidal Volume 500 Setting Ventilator Tidal Volume 500 Setting Ventilator Tidal Volume 500 Setting Ventilator Tidal Volume 500 Setting Ventilator Tidal Volume 500 Setting Ventilator Tidal Volume 500 Setting Ventilator Tidal Volume 500 Setting Ventilator Tidal Volume 500 Setting Ventilator Respiratory Rate 14 Setting Ventilator Respiratory Rate 14 Setting Ventilator Respiratory Rate 14 Setting Ventilator Respiratory Rate 14 Setting Ventilator Respiratory Rate 14 Setting Ventilator Respiratory Rate 14 Setting Ventilator Respiratory Rate 14 Setting Ventilator Respiratory Rate 14 Setting Ventilator Respiratory Rate 14 Setting Ventilator Respiratory Rate 14 Setting Ventilator Respiratory Rate 14 Setting Actual Respiratory Rate 19 Actual Respiratory Rate 18 Actual Respiratory Rate 19 Actual Respiratory Rate 19 Actual Respiratory Rate 19 Actual Respiratory Rate 27 Actual Respiratory Rate 19 Actual Respiratory Rate 18 Actual Respiratory Rate 18 Actual Respiratory Rate 19 Positive End Expiratory 5 Pressure Positive End Expiratory 5 Pressure Positive End Expiratory 5 Pressure Positive End Expiratory 5 Pressure Positive End Expiratory 5 Pressure Positive End Expiratory 5 Pressure Positive End Expiratory 5 Pressure Positive End Expiratory 5 Pressure Positive End Expiratory 5 Pressure Positive End Expiratory 5 Pressure Positive End Expiratory 5 Pressure Peak Inspiratory Airway 13 Pressure Peak Inspiratory Airway 13 Pressure Peak Inspiratory Airway 13 Pressure Peak Inspiratory Airway 13 Pressure Peak Inspiratory Airway 13 Pressure Peak Inspiratory Airway 13 Pressure Peak Inspiratory Airway 15 Pressure Peak Inspiratory Airway 13 Pressure Peak Inspiratory Airway 13 Pressure Peak Inspiratory Airway 13 Pressure Results - Laboratory Findings CBC and BMP: 01/20/19 08:03 01/20/19 08:03 ABG ABG pH 7.20 pH Units (7.32-7.45) L* 01/20/19 05:01 ABG pCO2 46 mmHg (35-45) H 01/20/19 05:01 ABG pO2 70 mmHg (85-104) L 01/20/19 05:01 ABG O2 Saturation 89 % (95-98) L 01/20/19 05:01 PT/INR, D-dimer PT 15.5 Seconds (9.4-12.1) H 01/14/19 17:30 Abnormal lab findings: Abnormal lab results WBC 25.5 K/mcL (4.3-11.1) H 01/20/19 04:25 RBC 2.77 M/mcL (4.19-5.50) L 01/20/19 04:25 Hgb 7.7 g/dL (12.9-16.9) L D 01/20/19 04:25 Hct 26.9 % (37.5-50.1) L 01/20/19 04:25 MCH 27.8 pg (28.0-33.3) L 01/20/19 04:25 MCHC 28.6 g/dL (31.6-35.5) L 01/20/19 04:25 RDW 19.5 % (11.5-14.5) H 01/20/19 04:25 Plt Count 499 K/mcL (140-400) H 01/20/19 04:25 12.0 % (0-4) H 01/19/19 03:44 2.0 % (0) H 01/19/19 03:44 4.0 % (0) H 01/16/19 05:12 21.8 K/mcL (1.6-8.9) H 01/20/19 04:25 0.5 K/mcL (0.6-4.6) L 01/11/19 03:45 1.8 K/mcL (0.0-1.3) H 01/19/19 03:44 Nucleated RBCs/100 WBC 0.1 /100 WBC (0) H 01/18/19 05:40 Present (Not Present) A 01/16/19 05:12 Increased (Normal) H 01/20/19 04:25 Present (Not Present) A 01/13/19 04:00 1+ (Not Present) A 01/19/19 03:44 Present (Not Present) A 01/20/19 04:25 1+ (Not Present) A 01/20/19 04:25 Present (Not Present) A 01/13/19 04:00 1+ (Not Present) A 01/11/19 03:45 1+ (Not Present) A 01/11/19 03:45 ESR >= 130 mm/hr (0-10) H 01/17/19 04:20 PT 15.5 Seconds (9.4-12.1) H 01/14/19 17:30 APTT 23.2 Seconds (26.0-36.0) L D 01/14/19 17:30 Heparin Anti-Xa, Unfract 0.00 IU/mL (0.30-0.70) L 01/14/19 17:30 ABG pH 7.20 pH Units (7.32-7.45) L* 01/20/19 05:01 ABG pCO2 46 mmHg (35-45) H 01/20/19 05:01 ABG pO2 70 mmHg (85-104) L 01/20/19 05:01 ABG HCO3 18 mEq/L (21-27) L 01/20/19 05:01 ABG Total CO2 19 mEq/L (20-26) L 01/20/19 05:01 ABG O2 Saturation 89 % (95-98) L 01/20/19 05:01 ABG Base Excess -10 mEq/L (-2 to 3) L 01/20/19 05:01 Sodium 128 mEq/L (136-145) L 01/14/19 09:10 Potassium 5.8 mEq/L (3.5-5.1) H 01/20/19 04:25 Chloride 112 mEq/L (98-107) H 01/20/19 04:25 Carbon Dioxide 17 mEq/L (23-29) L 01/20/19 04:25 BUN 56 mg/dL (8-23) H 01/20/19 04:25 1.88 mg/dL (0.70-1.30) H 01/20/19 04:25 Est GFR ( Amer) 43 (> 60) L 01/20/19 04:25 Est GFR (Non-Af Amer) 35 (> 60) L 01/20/19 04:25 30 (6-26) H 01/20/19 04:25 Glucose 248 mg/dL (70-105) H 01/20/19 04:25 POC Glucose 111 mg/dL (70-99) H 01/19/19 23:34 6.2 % (-5.6) H 01/07/19 08:46 316 (280-300) H 01/20/19 04:25 Lactic Acid 2.4 mmol/L (0.5-2.2) H 01/10/19 00:14 Calcium 8.2 mg/dL (8.6-10.3) L 01/20/19 04:25 Venous Ioniz Calcium 1.08 mmol/L (1.15-1.35) L 01/11/19 04:14 Phosphorus 6.1 mg/dL (2.7-4.5) H 01/20/19 04:25 Iron < 10 mcg/dL (65-175) L 01/18/19 05:40 98 mg/dL (203-362) L 01/18/19 05:40 AST 9 Units/L (13-39) L 01/12/19 11:21 167 mg/L (Less than 10) H 01/17/19 04:20 B-Natriuretic Peptide 300 pg/mL (Less than 100) H 01/09/19 15:18 4.4 g/dL (6.4-8.9) L 01/12/19 11:21 2.3 g/dL (3.5-5.7) L 01/12/19 11:21 2.1 g/dL (2.4-3.5) L 01/12/19 11:21 11.5 mg/dL (17.0-34.0) L 01/17/19 04:20 Triglycerides 179 mg/dL (< 150) H 01/10/19 04:15 6 Units/L (11-82) L 01/07/19 08:46 2.14 ng/mL (0.00-0.15) H 01/16/19 16:09 Cloudy (Clear) A 01/07/19 11:03 Ur Leukocyte Esterase Moderate (Negative) H 01/07/19 11:03 3-5 per hpf (0-3) H 01/07/19 11:03 50-100 per hpf (0-3) H 01/07/19 11:03 Ur Squamous Epith Cells Many per lpf (None-Few) H 01/07/19 11:03 Many per hpf (None-Few) H 01/07/19 11:03 Ur Culture Indicated? YES (NO) A 01/07/19 11:03 Fluid Appearance Cloudy (Clear) A 01/19/19 08:30 Positive (Negative) A 01/17/19 08:42 Crossmatch See Detail 01/17/19 12:25 - Microbiology Findings Microbiology Findings: Microbiology, Last 48 Hours 01/19/19 08:30 Respiratory Culture - Preliminary Right Middle Lobe Lung Culture is incubating. 01/18/19 14:00 Fungal Culture - Preliminary Aspirate Culture is incubating. 01/18/19 14:00 Wound Culture - Preliminary Abdomen Culture is incubating. 01/18/19 14:00 Anaerobic Culture - Preliminary Aspirate Culture is incubating. 01/17/19 01:30 Wound Culture - Preliminary Abdomen Group G Streptococcus - Clinical Findings Intake & Output: Intake & Output 01/19/19 01/20/19 01/20/19 23:59 07:59 15:59 Intake Total 390 / 1090.0 1474 / 1474 Output Total 428 / 1533 230 / 230 Balance -38 / -443.0 1244 / 1244 Weight 95.3 kg
[2019-01-20 08:25] LABS: Hematocrit 26.5 % (37.5-50.1); Hemoglobin 7.6 g/dL (12.9-16.9)
[2019-01-20 09:02] LABS: Potassium 5.3 mEq/L (3.5-5.1)
[2019-01-20] MEDS ORDERED: D10% in Water 500 ML IVC PRN ×3 (10:31→16:01)
[2019-01-20] MEDS ORDERED: Albumin 25% 25gram/100mL 25 GM/100 ML IV.SOLN IVC SCH (11:00)
--- NOTE | 2019-01-20 11:43 | Event Note ---
Date of Encounter: 01/20/19 Time of Encounter: 11:42 Patient remains intubated and sedated in ICU after nursing staff noted 02 sat alarming in patients room early on 19 January. Pt found to be unresponsive and rapid response team called. Pt was bagged and then gained enough responsiveness to vomit and likely aspirated. The large dried cast of barium in the oropharynx was reportedly also in the emesis. Pt was intubated and a bronchoscopy was performed through the ETT and no foreign body was identified. Prelim culture/gram stain shows many WBC G(+) bacteria and yeast. ENT will evaluate the upper airway again with nasal endoscopy after patient is extubated. Please call ENT when this is possible.
--- NOTE | 2019-01-20 12:02 | AcuteCareSurgery Progress Note ---
<Lu Calix - Last Filed: 01/20/19 14:49> Date of Encounter: 01/20/19 Time of Encounter: 11:58 - Assessment and Plan (1) Colon obstruction Current Visit: Yes Status: Acute Status post laparotomy with lysis of adhesions, unavoidable enterotomy, takedown colostomy, left colon resection, transverse colostomy, small bowel resection wi th primary anastomosis day 12 Status post interventional radiology CT-guided abdominal abscess drainage with drains placed 2. Purulent fluid removed. 01/18/19 Remains intubated, sedated Hypotensive overnight requiring levophed Febrile, MAXIMUM TEMPERATURE overnight 101.2 Worsening leukocytosis, currently 25.5 Wound culture positive for group G Streptococcus, gram-positive cocci Pending cultures-blood, anaerobic, fungal, respiratory Antibiotic coverage-cefepime, clindamycin, Diflucan, micafungin, vancomycin Nutrition-TPN Continue monitoring output of colostomy Continue monitoring output of FARIDA drains x2 - 7 ml, 2 ml, SS fluid Continue wound care, daily dressing and packing changes Subcutaneous heparin for DVT prophylaxis (2) Sepsis Current Visit: Yes Status: Acute Hypotensive overnight requiring levophed - CT abdomen and pelvis 01/20/19-new extensive right lower lobe airspace disease with trace right pleural effusion suggesting new right lower lobe pneumonia, persistent dense consolidation and pleural effusion the left lung base. 2 percutaneous drainage catheters left abdomen with resolution of previously seen focal fluid collections, extensive edema, ascites, and complex fluid in the abdomen pelvis which is stable to prior, mild wall thickening of the bowel with no evidence of pneumatosis, possible dehiscent anterior abdominal wall wounds with skin wilmar but complex fluid and air within the midline and left lower quadrant incision sites. Secondary to ischemic bowel, purulent intrabdominal abscess x2, pneumonia, aspiration Antibiotic coverage currently includes cefepime, clindamycin, micafungin, Diflu can, vancomycin Worsening leukocytosis, currently 25.5, febrile overnight to 101.2, tachycardic overnight Management per primary Qualifiers: Sepsis type: Streptococcus, other Qualified Code(s): A40.8 - Other streptococcal sepsis (3) Aspiration into airway Current Visit: Yes Status: Acute Patient reintubated, currently sedated in the ICU Aspiration of suspected foreign body, possible gastric contents. ICU team to manage vent Qualifiers: Encounter type: initial encounter Qualified Code(s): T17.908A - Unspecified foreign body in respiratory tract, part unspecified causing other injury, initial encounter (4) Acute respiratory failure with hypoxia Current Visit: Yes Status: Acute Patient intubated, sedated in the ICU CT abdomen and pelvis today revealed new extensive right lower lobe airspace disease with trace right pleural effusion adjusting new right lower lobe pneumonia, persistent dense consolidation and pleural effusion in the left lung base ICU team to manage (5) DVT prophylaxis Current Visit: Yes Status: Acute SCDs Subjective Narrative: Patient seen and examined at bedside today. Patient became hypotensive over night requiring levophed for pressor support. He remains intubated, sedated. His leukocytosis has increased to 25.5, he was febrile overnight, MAXIMUM TEMPERATURE 101.2. Hemoglobin decreased to 7.7 from 9.2. Wound cultures positive for group G strep, gram-positive cocci. CT abdominal pelvis performed this morning shows new extensive right lower lobe airspace disease with trace right pleural effusions, persistent dense consolidation and pleural effusion left lung base, resolution of focal fluid collections, drains in place, extensive edema, ascites, and complex fluid in the abdomen and pelvis which are stable compared to prior, mild wall thickening of the bowel which is unchanged since prior, complex fluid and air within the midline and left lower quadrant incision sites. Objective Vital Signs - Last 8 Hours Temp Pulse Resp BP Pulse Ox 01/20/19 11:38 99.6 F 01/20/19 09:32 26 114/55 93 01/20/19 08:14 99.9 F H 81 19 114/55 94 01/20/19 08:00 75 19 120/54 94 01/20/19 07:55 99.9 F H 01/20/19 07:24 18 114/55 93 01/20/19 07:00 75 19 101/50 94 01/20/19 06:31 18 109/51 94 01/20/19 06:00 78 19 116/48 93 01/20/19 05:00 79 18 100/8 93 01/20/19 04:00 82 18 94/55 93 Intake and Output 01/19/19 01/20/19 01/20/19 23:59 07:59 15:59 Intake Total 390 / 1090.0 1474 / 1474 0 / 1474 Output Total 428 / 1533 230 / 484 254 / 484 Balance -38 / -443.0 1244 / 990 -254 / 990 Intake: IV Fluids 390 / 1030.0 952 / 952 PRECEDEX Premix 400 mcg In 100 20 / 20 89 / 89 ml @ 0.2 MCG/KG/HR 4.65 mls/hr IVC .[id number] [facility] Rx#:[id number] FentaNYL (PF) 1,000 MCG In 0.9 100 / 100 103 / 103 % Sodium Chloride 80 ML @ 50 MCG/HR 5 mls/hr IVC CONT [facility] Rx #:[id number] Levophed 4 MG In Dextrose 5% 110 / 110 250 ML @ 8 MCG/MIN 30.48 mls/hr IVC CONT [facility] Rx#:[id number] Diprivan 1,000 mg In 100 ml @ 5 90 / 190.0 MCG/KG/MIN 2.859 mls/hr IVC . Q24H [facility] Rx#:[id number] Maxipime 2,000 MG In Water for 20 / 60 inj. (sterile) 20 ML @ 300 mls/ hr IVP Q12H [facility] Rx#:[id number] Ofirmev 1,000 mg/100 ml 1,000 100 / 100 mg In 100 ml @ 400 mls/hr IVPB Q6HR PRN Rx#:[id number] ALBURX 5% 12.5 gm In 250 ml @ 500 / 500 60 mls/hr IVPB ONCE ONE Rx#: [id number] Cleocin Premix 600 MG/50 ML 600 50 / 50 50 / 50 mg In 50 ml @ 50 mls/hr IVPB Q8HR [facility] Rx#:[id number] Ferrlecit 125 MG In 0.9 % 110 / 110 Sodium Chloride 100 ML @ 110 mls/hr IVPB 3XW [facility] Rx#: [id number] Blood Product 0 / 0 Rbcs Leuko Poor As-1 Unit 0 / 0 [id number] Other 522 / 522 Output: Stool 100 / 450 0 / 0 Catheter 275 / 875 225 / 475 250 / 475 Gastric Drainage 30 / 130 0 / 0 Wound Drainage 5 / 9 4 / 9 Left Abd, FARIDA # 2 5 / 7 2 / 7 Left Abd, FARIDA #1 0 / 2 2 / 2 Other: Weight 95.3 kg Blood Glucose* 111 136 97 - General physical appearance no distress, other (Patient intubated, sedated) - Eyes PERRL - ENT no congestion, dry mucosa - Neck Neck exam: trachea midline, no venous distension - Respiratory normal expansion, normal respiratory effort, other (Coarse breath sounds bilaterally) - Cardiovascular Cardiovascular exam: Present: RRR, no murmurs/rubs/gallops. Absent: JVD - Abdomen Abdomen: Present: bowel sounds present (Hypoactive. Colostomy in place, continues to have output into colostomy bag.), soft, non tender, distended (Mildly) - Incision Incision: Present: draining (Scant drainage, packing in place), intact. Absent: erythema - Integumentary no rash, other (2+ pitting edema in lower extremities, edematous upper extremities) - Neurologic other (Patient intubated, sedated, unable to assess) - Psychiatric other (Patient intubated, sedated, unable to assess) - Labs 01/20/19 08:03 01/20/19 08:03 Diabetes panel 01/19/19 01/20/19 01/20/19 Range/Units 03:44 04:25 08:03 Sodium 139 141 (136-145) mEq/L Potassium 4.8 5.8 H 5.3 H (3.5-5.1) mEq/L Chloride 111 H 112 H (98-107) mEq/L Carbon Dioxide 17 L 17 L (23-29) mEq/L BUN 48 H 56 H (8-23) mg/dL Creatinine 1.31 H 1.88 H (0.70-1.30) mg/dL Glucose 215 H 248 H (70-105) mg/dL Calcium 8.3 L 8.2 L (8.6-10.3) mg/dL Calcium panel 01/19/19 01/20/19 Range/Units 03:44 04:25 Calcium 8.3 L 8.2 L (8.6-10.3) mg/dL Phosphorus 3.7 6.1 H (2.7-4.5) mg/dL Pituitary panel 01/19/19 01/20/19 01/20/19 Range/Units 03:44 04:25 08:03 Sodium 139 141 (136-145) mEq/L Potassium 4.8 5.8 H 5.3 H (3.5-5.1) mEq/L Chloride 111 H 112 H (98-107) mEq/L Carbon Dioxide 17 L 17 L (23-29) mEq/L BUN 48 H 56 H (8-23) mg/dL Creatinine 1.31 H 1.88 H (0.70-1.30) mg/dL Glucose 215 H 248 H (70-105) mg/dL Calcium 8.3 L 8.2 L (8.6-10.3) mg/dL Adrenal panel 01/19/19 01/20/19 01/20/19 Range/Units 03:44 04:25 08:03 Sodium 139 141 (136-145) mEq/L Potassium 4.8 5.8 H 5.3 H (3.5-5.1) mEq/L Chloride 111 H 112 H (98-107) mEq/L Carbon Dioxide 17 L 17 L (23-29) mEq/L BUN 48 H 56 H (8-23) mg/dL Creatinine 1.31 H 1.88 H (0.70-1.30) mg/dL Glucose 215 H 248 H (70-105) mg/dL Calcium 8.3 L 8.2 L (8.6-10.3) mg/dL Consult Discharge Plan - Plan Referrals: Ranjit Rodriguez MD [Primary Care Provider] - <Ranjit Zhong - Last Filed: 01/20/19 19:05> Date of Encounter: 01/20/19 - Assessment and Plan (1) Colon obstruction Current Visit: Yes Status: Acute Objective Vital Signs - Last 8 Hours Temp Pulse Resp BP Pulse Ox 01/20/19 18:21 100.5 F H 81 24 113/52 94 01/20/19 18:00 79 25 113/52 95 01/20/19 17:25 25 106/46 95 01/20/19 17:00 74 24 121/43 94 01/20/19 16:00 82 18 106/46 94 01/20/19 15:42 100.5 F H 01/20/19 15:19 22 111/48 94 01/20/19 15:00 87 21 111/48 94 01/20/19 14:00 83 18 105/45 94 01/20/19 13:29 18 113/48 94 01/20/19 13:24 99.9 F H 90 20 123/53 94 01/20/19 13:09 99.6 F 85 18 113/48 94 01/20/19 13:00 90 18 123/53 94 01/20/19 12:00 99.6 F 97 20 135/44 96 01/20/19 11:38 99.6 F 01/20/19 11:18 20 113/48 95 Intake and Output 01/20/19 01/20/19 01/20/19 07:59 15:59 23:59 Intake Total 1494 / 4966 698 / 4966 2774 / 4966 Output Total 230 / 784 554 / 784 Balance 1264 / 4182 144 / 4182 2774 / 4182 Intake: IV Fluids 972 / 3734 338 / 3734 2424 / 3734 0.9 % Sodium Chloride 1,000 ML 1000 / 1000 @ 999 mls/hr IVC .Q1H1M [facility] Rx# :[id number] PRECEDEX Premix 400 mcg In 100 89 / 280 91 / 280 100 / 280 ml @ 0.2 MCG/KG/HR 4.65 mls/hr IVC .[id number] [facility] Rx#:[id number] FentaNYL (PF) 1,000 MCG In 0.9 103 / 300 97 / 300 100 / 300 % Sodium Chloride 80 ML @ 50 MCG/HR 5 mls/hr IVC CONT [facility] Rx #:[id number] Levophed 4 MG In Dextrose 5% 110 / 364 254 / 364 250 ML @ 8 MCG/MIN 30.48 mls/hr IVC CONT [facility] Rx#:[id number] Sodium Bicarbonate 150 MEQ In 300 / 300 Dextrose 5% 1,000 ML @ 100 mls/ hr IVC .[id number] [facility] Rx#: [id number] Maxipime 2,000 MG In Water for 20 / 40 20 / 40 inj. (sterile) 20 ML @ 300 mls/ hr IVP Q12H [facility] Rx#:[id number] Ofirmev 1,000 mg/100 ml 1,000 100 / 100 mg In 100 ml @ 400 mls/hr IVPB Q6HR [facility] Rx#:[id number] Flexbumin 25 gm In 100 ml @ 60 100 / 400 300 / 400 mls/hr IVPB Q6HR [facility] Rx#: [id number] ALBURX 5% 12.5 gm In 250 ml @ 500 / 500 60 mls/hr IVPB ONCE ONE Rx#: [id number] Cleocin Premix 600 MG/50 ML 600 50 / 100 50 / 100 mg In 50 ml @ 50 mls/hr IVPB Q8HR [facility] Rx#:[id number] Mycamine 100 MG In 0.9 % Sodium 100 / 100 Chloride (Mini-Bag +) 100 ML @ 100 mls/hr IVPB DAILY [facility] Rx#: [id number] Vancocin 1,250 MG In 0.9 % 250 / 250 Sodium Chloride 250 ML @ 166.67 mls/hr IVPB Q24H [facility] Rx#: [id number] Blood Product 360 / 710 350 / 710 Rbcs Leuko Poor As-1 Unit 360 / 360 [id number] Rbcs Leuko Poor As-1 Unit 0 / 350 350 / 350 [id number] Other 522 / 522 Output: Stool 0 / 0 0 / 0 Catheter 225 / 775 550 / 775 Gastric Drainage 0 / 0 Wound Drainage 5 / 4 / Left Abd, FARIDA # 2 5 / 7 2 / Left Abd, FARIDA #1 0 / 2 2 / 2 Other: Blood Glucose* 136 132 - Labs 01/20/19 08:03 01/20/19 16:35 Diabetes panel 01/20/19 01/20/19 01/20/19 Range/Units 04:25 08:03 16:35 Sodium 141 139 140 (136-145) mEq/L Potassium 5.8 H 5.3 H 5.6 H (3.5-5.1) mEq/L Chloride 112 H 116 H 112 H (98-107) mEq/L Carbon Dioxide 17 L 15 L 16 L (23-29) mEq/L BUN 56 H 56 H 54 H (8-23) mg/dL Creatinine 1.88 H 1.86 H 1.90 H (0.70-1.30) mg/dL Glucose 248 H 103 172 H (70-105) mg/dL Calcium 8.2 L 8.0 L 8.4 L (8.6-10.3) mg/dL Albumin 3.5 (3.5-5.7) g/dL Calcium panel 01/20/19 01/20/19 01/20/19 Range/Units 04:25 08:03 16:35 Calcium 8.2 L 8.0 L 8.4 L (8.6-10.3) mg/dL Phosphorus 6.1 H 6.0 H (2.7-4.5) mg/dL Albumin 3.5 (3.5-5.7) g/dL Pituitary panel 01/20/19 01/20/19 01/20/19 Range/Units 04:25 08:03 16:35 Sodium 141 139 140 (136-145) mEq/L Potassium 5.8 H 5.3 H 5.6 H (3.5-5.1) mEq/L Chloride 112 H 116 H 112 H (98-107) mEq/L Carbon Dioxide 17 L 15 L 16 L (23-29) mEq/L BUN 56 H 56 H 54 H (8-23) mg/dL Creatinine 1.88 H 1.86 H 1.90 H (0.70-1.30) mg/dL Glucose 248 H 103 172 H (70-105) mg/dL Calcium 8.2 L 8.0 L 8.4 L (8.6-10.3) mg/dL Adrenal panel 01/20/19 01/20/19 01/20/19 Range/Units 04:25 08:03 16:35 Sodium 141 139 140 (136-145) mEq/L Potassium 5.8 H 5.3 H 5.6 H (3.5-5.1) mEq/L Chloride 112 H 116 H 112 H (98-107) mEq/L Carbon Dioxide 17 L 15 L 16 L (23-29) mEq/L BUN 56 H 56 H 54 H (8-23) mg/dL Creatinine 1.88 H 1.86 H 1.90 H (0.70-1.30) mg/dL Glucose 248 H 103 172 H (70-105) mg/dL Calcium 8.2 L 8.0 L 8.4 L (8.6-10.3) mg/dL Albumin 3.5 (3.5-5.7) g/dL - Attending Attestation I examined this patient and my medical decision-making was reviewed with the Resident Physician. I agree with the documented findings, disposition and treatment plan as described except to the extent set forth below. The patient is seen and evaluated on morning rounds with resident. He had a terrible night and is now requiring high-dose levophed to maintain his systolic blood pressure. A CAT scan of the abdomen was ordered. There are no new fluid collections. The gastrostomy drain is draining green bile and the ostomy is pink with stool in the bag. He appears to have bowel continuity. CAT scan did demonstrate severe pneumonia in both lower lung garcia. Continue maximum supportive care. I spent some time talking with the family letting them know how critically ill he is. Ranjit Zhong MD FACS
[2019-01-20] MEDS: Micafungin 100 MG in 0.9 % Sodium Chloride Mini Bag 100 ML IVPB SCH (12:09)
[2019-01-20] MEDS: Albumin 25% 25gram/100mL 25 GM/100 ML IV.SOLN IVPB SCH ×4 (12:11→17:54)
[2019-01-20] MEDS: Norepinephrine 8 MG in D5% in Water 250 ML IVC SCH (12:11)
[2019-01-20] MEDS ORDERED: Sodium Bicarbonate 50 MEQ/50 ML VIAL IVP ONE (12:41)
--- NOTE | 2019-01-20 13:50 | Electrocardiograph Report ---
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
[2019-01-20] MEDS: Sodium Bicarbonate 150 MEQ in D5% in Water 1,000 ML IVC SCH ×2 (14:23→23:06)
[2019-01-20] MEDS ORDERED: Clinimix 5%-20% SOLUTION 2,000 ML, Parenteral Amino Acid 10% 0 ML with MVI, adult with... IVC SCH (17:00)
[2019-01-20] MEDS ORDERED: Clinimix E 5%-15% SOLUTION 2,000 ML with MVI, adult with vitamin K 10 ML, Trace Eleme... IVC SCH (17:00)
[2019-01-20 17:12] LABS: Albumin 3.5 g/dL (3.5-5.7); Calcium 8.4 mg/dL (8.6-10.3); Potassium 5.6 mEq/L (3.5-5.1)
[2019-01-20 19:40] LABS: ABG Base Excess -10 mEq/L (-2 to 3); ABG HCO3 18 mEq/L (21-27); ABG Oxygen Saturation 91 % (95-98); ABG PCO2 48 mmHg (35-45); ABG PH 7.18 pH Units (7.32-7.45); ABG PO2 76 mmHg (85-104); ABG TCO2 19 mEq/L (20-26); Blood Gas Modality VC; Blood Gas PEEP 5 cm H2O; Blood Gas VT 500 cc
[2019-01-20 20:19] LABS: Hematocrit 28.1 % (37.5-50.1); Hemoglobin 8.4 g/dL (12.9-16.9)
[2019-01-20 20:32] LABS: Sodium, Urine 44.8 mEq/L
[2019-01-20 20:37] LABS: Calcium 8.6 mg/dL (8.6-10.3); Potassium 5.4 mEq/L (3.5-5.1)
[2019-01-20] MEDS: Latanoprost 2.5 ML BOTTLE RIGHT EYE SCH (20:42)
[2019-01-21] MEDS: FentaNYL (PF) 1,000 MCG in 0.9 % Sodium Chloride 80 ML IVC SCH ×3 (00:30→19:53)
[2019-01-21] MEDS: Ipratropium/Albuterol Neb 3 ML IH SCH ×6 (03:37→23:20)
[2019-01-21] MEDS: Artificial Tears SOLN 15 ML BOTTLE BOTH EYES SCH ×6 (04:00→23:32)
[2019-01-21] MEDS: Norepinephrine 8 MG in D5% in Water 250 ML IVC SCH (04:15)
[2019-01-21 04:36] LABS: Basophils % 0.3 %; Eosinophils # 0.4 K/mcL (0.0-0.6); Eosinophils % 2.5 %; Hematocrit 27.7 % (37.5-50.1); Hemoglobin 8.5 g/dL (12.9-16.9); Immature Granulocytes % 2.7 % (0-4); Lymphocytes # 0.9 K/mcL (0.6-4.6); Lymphocytes % 6.2 %; Mean Corpuscular HGB Conc 30.7 g/dL (31.6-35.5); Mean Corpuscular Hemoglobin 28.5 pg (28.0-33.3); Monocytes # 0.7 K/mcL (0.0-1.3); Monocytes % 4.5 %; Neutrophils # 12.5 K/mcL (1.6-8.9); Platelet Count 380 K/mcL (140-400); Red Blood Count 2.98 M/mcL (4.19-5.50); Red Cell Distribution Width 18.6 % (11.5-14.5); Segmented Neutrophils % 83.8 %; White Blood Count 14.9 K/mcL (4.3-11.1)
[2019-01-21 04:51] LABS: Calcium 8.6 mg/dL (8.6-10.3); Magnesium 2.3 mg/dL (1.6-2.6); Phosphorous 5.5 mg/dL (2.7-4.5); Potassium 4.8 mEq/L (3.5-5.1)
[2019-01-21 05:05] LABS: ABG Base Excess -3 mEq/L (-2 to 3); ABG HCO3 23 mEq/L (21-27); ABG Oxygen Saturation 91 % (95-98); ABG PCO2 45 mmHg (35-45); ABG PH 7.32 pH Units (7.32-7.45); ABG PO2 68 mmHg (85-104); ABG TCO2 24 mEq/L (20-26); Blood Gas Modality ASSIST CONTROL; Blood Gas PEEP 5 cm H2O; Blood Gas VT 500 cc
[2019-01-21 05:10] LABS: Anisocytosis 1+ (Not Present); Hypochromasia Present (Not Present); Platelet Estimate Normal (Normal); Toxic Granulation Present (Not Present)
[2019-01-21] MEDS: Dexmedetomidine HCl 400 MCG/100 ML MLS IVC SCH ×4 (05:32→22:40)
[2019-01-21] MEDS: Insulin LISPRO 300 UNITS/3 ML VIAL SQ SCH ×6 (05:36→23:37)
[2019-01-21] MEDS: Cefepime HCl 2,000 MG in Water for inj. (sterile) 20 ML IVP SCH ×2 (05:38→17:46)
[2019-01-21] MEDS: Pantoprazole 40 MG VIAL IVP SCH (07:58)
[2019-01-21] MEDS: Chlorhexidine Rinse 15 ML MOUTHWASH MM SCH ×2 (07:58→20:02)
[2019-01-21] MEDS: Clindamycin 600 MG/50 ML 600 MG/50 ML IV.SOLN IVPB SCH ×3 (07:58→23:40)
[2019-01-21] MEDS: *HR* Amiodarone 200 MG TABLET PO SCH (07:59)
[2019-01-21] MEDS: Dorzolamide/Timolol 1 DROP RIGHT EYE SCH ×2 (07:59→20:02)
--- NOTE | 2019-01-21 08:02 | Pulmonology Progress Note ---
<Avi Steele W - Last Filed: 01/21/19 12:16> Date of Encounter: 01/21/19 Assessment and Plan (1) Postoperative hypovolemic shock Current Visit: Yes Status: Acute Qualifiers: Encounter type: sequela Qualified Code(s): T81.19XS - Other postprocedural shock, sequela (2) Acute diastolic heart failure with preserved ejection fraction Current Visit: Yes Status: Acute Objective PUL Vital signs: Last Vital Signs Temp 97.5 F L 01/21/19 00:15 Pulse 62 01/21/19 10:00 Resp 24 01/21/19 10:00 BP 102/51 01/21/19 10:00 Pulse Ox 95 01/21/19 10:00 Ventilator Settings Ventilator Settings: Ventilator Settings, Last 8 Hours Ventilator Tidal Volume 500 Setting Ventilator Tidal Volume 500 Setting Ventilator Tidal Volume 500 Setting Ventilator Tidal Volume 500 Setting Ventilator Tidal Volume 500 Setting Ventilator Tidal Volume 500 Setting Ventilator Tidal Volume 500 Setting Ventilator Tidal Volume 500 Setting Ventilator Tidal Volume 500 Setting Ventilator Tidal Volume 500 Setting Ventilator Respiratory Rate 24 Setting Ventilator Respiratory Rate 24 Setting Ventilator Respiratory Rate 24 Setting Ventilator Respiratory Rate 24 Setting Ventilator Respiratory Rate 24 Setting Ventilator Respiratory Rate 24 Setting Ventilator Respiratory Rate 24 Setting Ventilator Respiratory Rate 24 Setting Ventilator Respiratory Rate 24 Setting Ventilator Respiratory Rate 24 Setting Actual Respiratory Rate 24 Actual Respiratory Rate 24 Actual Respiratory Rate 24 Actual Respiratory Rate 24 Actual Respiratory Rate 24 Actual Respiratory Rate 24 Actual Respiratory Rate 24 Actual Respiratory Rate 24 Actual Respiratory Rate 24 Positive End Expiratory 5 Pressure Positive End Expiratory 5 Pressure Positive End Expiratory 5 Pressure Positive End Expiratory 5 Pressure Positive End Expiratory 5 Pressure Positive End Expiratory 5 Pressure Positive End Expiratory 5 Pressure Positive End Expiratory 5 Pressure Positive End Expiratory 5 Pressure Positive End Expiratory 5 Pressure Peak Inspiratory Airway 30 Pressure Peak Inspiratory Airway 29 Pressure Peak Inspiratory Airway 31 Pressure Peak Inspiratory Airway 32 Pressure Peak Inspiratory Airway 31 Pressure Peak Inspiratory Airway 31 Pressure Peak Inspiratory Airway 30 Pressure Peak Inspiratory Airway 32 Pressure Results - Laboratory Findings CBC and BMP: 01/21/19 04:00 01/21/19 04:00 ABG ABG pH 7.32 pH Units (7.32-7.45) 01/21/19 05:02 ABG pCO2 45 mmHg (35-45) 01/21/19 05:02 ABG pO2 68 mmHg (85-104) L 01/21/19 05:02 ABG O2 Saturation 91 % (95-98) L 01/21/19 05:02 PT/INR, D-dimer PT 15.5 Seconds (9.4-12.1) H 01/14/19 17:30 Abnormal lab findings: Abnormal lab results WBC 14.9 K/mcL (4.3-11.1) H 01/21/19 04:00 RBC 2.98 M/mcL (4.19-5.50) L 01/21/19 04:00 Hgb 8.5 g/dL (12.9-16.9) L 01/21/19 04:00 Hct 27.7 % (37.5-50.1) L 01/21/19 04:00 MCH 27.8 pg (28.0-33.3) L 01/20/19 04:25 MCHC 30.7 g/dL (31.6-35.5) L 01/21/19 04:00 RDW 18.6 % (11.5-14.5) H 01/21/19 04:00 Plt Count 499 K/mcL (140-400) H 01/20/19 04:25 12.0 % (0-4) H 01/19/19 03:44 2.0 % (0) H 01/19/19 03:44 4.0 % (0) H 01/16/19 05:12 12.5 K/mcL (1.6-8.9) H 01/21/19 04:00 0.5 K/mcL (0.6-4.6) L 01/11/19 03:45 1.8 K/mcL (0.0-1.3) H 01/19/19 03:44 Nucleated RBCs/100 WBC 0.1 /100 WBC (0) H 01/18/19 05:40 Present (Not Present) A 01/21/19 04:00 Increased (Normal) H 01/20/19 04:25 Present (Not Present) A 01/13/19 04:00 1+ (Not Present) A 01/19/19 03:44 Present (Not Present) A 01/21/19 04:00 1+ (Not Present) A 01/21/19 04:00 Present (Not Present) A 01/13/19 04:00 1+ (Not Present) A 01/11/19 03:45 1+ (Not Present) A 01/11/19 03:45 ESR >= 130 mm/hr (0-10) H 01/17/19 04:20 PT 15.5 Seconds (9.4-12.1) H 01/14/19 17:30 APTT 23.2 Seconds (26.0-36.0) L D 01/14/19 17:30 Heparin Anti-Xa, Unfract 0.00 IU/mL (0.30-0.70) L 01/14/19 17:30 ABG pH 7.18 pH Units (7.32-7.45) L* 01/20/19 11:55 ABG pCO2 48 mmHg (35-45) H 01/20/19 11:55 ABG pO2 68 mmHg (85-104) L 01/21/19 05:02 ABG HCO3 18 mEq/L (21-27) L 01/20/19 11:55 ABG Total CO2 19 mEq/L (20-26) L 01/20/19 11:55 ABG O2 Saturation 91 % (95-98) L 01/21/19 05:02 ABG Base Excess -3 mEq/L (-2 to 3) L 01/21/19 05:02 Sodium 128 mEq/L (136-145) L 01/14/19 09:10 Potassium 5.4 mEq/L (3.5-5.1) H 01/20/19 20:00 Chloride 110 mEq/L (98-107) H 01/21/19 04:00 Carbon Dioxide 18 mEq/L (23-29) L 01/20/19 20:00 BUN 54 mg/dL (8-23) H 01/21/19 04:00 1.96 mg/dL (0.70-1.30) H 01/21/19 04:00 Est GFR ( Amer) 41 (> 60) L 01/21/19 04:00 Est GFR (Non-Af Amer) 34 (> 60) L 01/21/19 04:00 28 (6-26) H 01/21/19 04:00 Glucose 181 mg/dL (70-105) H 01/21/19 04:00 POC Glucose 176 mg/dL (70-99) H 01/20/19 23:23 6.2 % (-5.6) H 01/07/19 08:46 305 (280-300) H 01/21/19 04:00 Lactic Acid 2.4 mmol/L (0.5-2.2) H 01/10/19 00:14 Calcium 8.4 mg/dL (8.6-10.3) L 01/20/19 16:35 Venous Ioniz Calcium 1.08 mmol/L (1.15-1.35) L 01/11/19 04:14 Phosphorus 5.5 mg/dL (2.7-4.5) H 01/21/19 04:00 Iron < 10 mcg/dL (65-175) L 01/18/19 05:40 98 mg/dL (203-362) L 01/18/19 05:40 AST 9 Units/L (13-39) L 01/12/19 11:21 23 Units/L (30-223) L 01/20/19 08:03 167 mg/L (Less than 10) H 01/17/19 04:20 B-Natriuretic Peptide 300 pg/mL (Less than 100) H 01/09/19 15:18 4.4 g/dL (6.4-8.9) L 01/12/19 11:21 2.3 g/dL (3.5-5.7) L 01/12/19 11:21 2.1 g/dL (2.4-3.5) L 01/12/19 11:21 11.5 mg/dL (17.0-34.0) L 01/17/19 04:20 Triglycerides 179 mg/dL (< 150) H 01/10/19 04:15 6 Units/L (11-82) L 01/07/19 08:46 2.14 ng/mL (0.00-0.15) H 01/16/19 16:09 Cloudy (Clear) A 01/07/19 11:03 Ur Leukocyte Esterase Moderate (Negative) H 01/07/19 11:03 3-5 per hpf (0-3) H 01/07/19 11:03 50-100 per hpf (0-3) H 01/07/19 11:03 Ur Squamous Epith Cells Many per lpf (None-Few) H 01/07/19 11:03 Many per hpf (None-Few) H 01/07/19 11:03 Ur Culture Indicated? YES (NO) A 01/07/19 11:03 Fluid Appearance Cloudy (Clear) A 01/19/19 08:30 Positive (Negative) A 01/17/19 08:42 Crossmatch See Detail 01/17/19 12:25 - Microbiology Findings Microbiology Findings: Microbiology, Last 48 Hours 01/17/19 01:30 Wound Culture - Preliminary Abdomen Group G Streptococcus Enterococcus faecalis Gram Positive Cocci#2 01/17/19 01:30 Gram Stain - Final Abdomen 01/19/19 08:30 Acid Fast Stain - Final Right Middle Lobe Lung 01/19/19 08:30 Respiratory Culture - Preliminary Right Middle Lobe Lung 01/18/19 14:00 Wound Culture - Preliminary Abdomen Gram Positive Cocci 01/19/19 08:30 Fungal Culture - Preliminary Right Middle Lobe Lung Culture is incubating. 01/18/19 14:00 Fungal Culture - Preliminary Aspirate Culture is incubating. 01/18/19 14:00 Anaerobic Culture - Preliminary Aspirate Culture is incubating. - Clinical Findings Intake & Output: Intake & Output 01/20/19 01/21/19 01/21/19 23:59 07:59 15:59 Intake Total 3882 / 6124 1650 / 1750 100 / 1750 Output Total 235 / 1019 655 / 1255 600 / 1255 Balance 3647 / 5105 995 / 495 -500 / 495 Weight 101.8 kg Consult Discharge Plan - Plan Referrals: Ranjit Rodriguez MD [Primary Care Provider] - - Attending Attestation I examined this patient and my medical decision-making was reviewed with the Resident Physician. I agree with the documented findings, disposition and treatment plan as described except to the extent set forth below. We independently had [id number] contact with the patient I spent 40min of Critical Care time with this patient. It involved decision making of high complexity to assess, manipulate, and support vital organ system failure and/or to prevent further life threatening deterioration of the patie nt's condition. The time involved in the performance of separately reportable procedures was not counted toward critical care time. Patient seen and examined at bedside Labs, radiology, chart personally reviewed. Management was reviewed during multidisciplinary critical care rounds. 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 Cards: Septic shock on vasopressor but doses being able to be weaned down he has responded to volume expansion yesterday GI: GI prophylaxis given his status post ostomy revision CT scan of the abdomen performed yesterday without any acute changes appreciate general surgery following Nutrition: TPN will be administered per dietary recommendations Renal: Acute kidney injury is improving generally after volume expansion and use of bicarbonate which is on hold now we will continue UOP Monitored, Cont to Trend sCr and monitor Electrolytes. Renal dose all medications and avoid nephrotoxins. Still has a high risk of further deterioration requiring renal replacement therapy ID: Septic shock likely secondary to pneumonia he is on broad-spectrum antibiotics white count has improved today which is encouraging Heme/Onc: Endo: Glucose Monitored Integ/MSK: Skin Care per routine ICU Nursing Protocol to prevent ulcers. Lines: All lines examined without evidence of infection : Dispo: Continue to monitor in ICU for critical illness and vent management CODE: Full code family updated at bedside <Edin Tate - Last Filed: 01/21/19 13:47> Date of Encounter: 01/21/19 Time of Encounter: 08:33 Assessment and Plan (1) Acute respiratory failure with hypoxia Current Visit: Yes Status: Acute - On 01/19: Patient developed respiratory failure with hypoxia, likely secondary to foreign body aspiration - Rapid response was called overhead, and patient was found to be hypoxic in his room, not following commands; continued to desat after being bagged - Decision was made to intubate; patient subsequently vomited and aspirated; was aggressively suctioned, and large foreign body was removed from airway - ENT documented a large body of dried barium and patients oropharynx, which likely broke off - Airway exam with bronchoscopy was performed; did not show any residual evidence of foreign body obstruction - ABG 01/18: 7.47/24/80/17/18/97 - ABG 01/19: 7.28/38/271/18// - ABG 01/20: 7.20/46/70/18//89 - ABG 01/21: 7.32/45/68///91 Vent settings: Respiratory rate 24, inspired O2 60%, tidal volume 500, PEEP 5 Plan: - Continue sedation with propofol, fentanyl, precedex - Repeat ABG in the a.m. - Not a candidate for spontaneous breathing trial at this time due to vent requirements and level of sedation (2) Sepsis Current Visit: Yes Status: Acute - Patient is currently meeting 3 out of 4 SIRS criteria with leukocytosis, tachycardia, and tachypnea - Potential infection source including pneumonia, intra-abdominal fluid collection, abdominal wound - White count has decreased to 14.9 from 25.5 - CT chest 01/16: Bilateral pleural effusions with associated dependent upper and lower airspace disease including consolidation, possibly representing pneumonia - Preliminary wound culture from 01/17/19 demonstrated the presence of group B strep - Blood cultures have shown no growth to date - Aspirate cultures are ordered and currently pending; will tailor antibiotic therapy accordingly Plan: - Continue vancomycin, cefepime, clindamycin, micafungin - We will check lactate with a.m. labs (3) Anemia Current Visit: Yes Status: Acute - Etiology unknown at this time - Required transfusion with 2 units of packed red blood cells yesterday - Today, hemoglobin is stable at 8.5 - Repeat CBC in the a.m. (4) Acute kidney injury Current Visit: Yes Status: Acute - Etiology unknown; likely multifactorial in the setting of sepsis and nephrotoxic medications - Creatinine has increased to 1.96 from 1.94 - Despite his rising creatinine, patient does have a good urine output compared to yesterday - Receiving vancomycin as part of his antibiotic regimen for the treatment of pneumonia Plan: - Renally dose medications, avoid nephrotoxins if possible - Repeat renal function panel pending for later this afternoon - 4 doses of 25% albumin have been ordered for volume expansion (5) Pneumonia Current Visit: Yes Status: Acute - Causative organism is unknown - White count has decreased to 14.9 from 25.5 - CXR from 01/18 demonstrates left retrocardiac opacity favoring focal airspace disease - Infectious disease is following; continue vancomycin, cefepime, clindamycin, micafungin Qualifiers: Qualified Code(s): J18.9 - Pneumonia, unspecified organism (6) Colon obstruction Current Visit: Yes Status: Acute - S/P laparotomy with lysis of adhesions, unavoidable enterotomy, takedown colostomy, L: Resection, transverse colostomy, small bowel resection with primary anastomosis - S/P CT guided abdominal abscess drainage with drains placed - Surgery following; continue wound care (7) Hydronephrosis Current Visit: Yes Status: Acute - Chronic, has payton catheter (8) Diabetes Current Visit: Yes Status: Acute - Continue insulin Subjective Principal diagnosis: Postop colectomy and colostomy Interval history: Patient was seen and examined at bedside; currently intubated and sedated. Today, patients labs look improved compared to yesterday. His hemoglobin is now stable at 8.5. His white count has decreased to 14.9 from 25.5. His creatinine has slightly increased compared to yesterday, 1.96 from 1.94. However, he now has much better urine output. Potassium was noted to be low this morning, and a replacement was ordered. He is not yet a candidate for a spontaneous breathing trial due to vent requirements and level of sedation. Patient responded well to volume expansion yesterday; will order 4 more bags of albumin for him today. Objective PUL Vital signs: Last Vital Signs Temp 97.5 F L 01/21/19 00:15 Pulse 62 01/21/19 07:00 Resp 24 01/21/19 07:00 BP 99/44 01/21/19 07:00 Pulse Ox 96 01/21/19 07:00 General: Intubated, sedated; no acute distress noted Head: atraumatic, normocephalic; ET tube in place Eye: No scleral icterus Neck: Supple, trachea midline; No lymphadenopathy Respiratory: Diminished breath sounds bilaterally, bilateral rhonchi, no wheezing/rales Cardiovascular: RRR, +S1, +S2; no murmurs, rubs, gallops Abdomen: Soft, distended; Midline abdominal incision, colostomy bag in place Extremities: 1+ edema in upper and lower extremities; soft restraints in place on the upper extremities Neurological: Sedated; no response to stimuli Psychiatric: Unable to assess Skin: Dry, intact Ventilator Settings Ventilator Settings: Ventilator Settings, Last 8 Hours Ventilator Tidal Volume 500 Setting Ventilator Tidal Volume 500 Setting Ventilator Tidal Volume 500 Setting Ventilator Tidal Volume 500 Setting Ventilator Tidal Volume 500 Setting Ventilator Tidal Volume 500 Setting Ventilator Tidal Volume 500 Setting Ventilator Tidal Volume 500 Setting Ventilator Tidal Volume 500 Setting Ventilator Tidal Volume 500 Setting Ventilator Tidal Volume 500 Setting Ventilator Respiratory Rate 24 Setting Ventilator Respiratory Rate 24 Setting Ventilator Respiratory Rate 24 Setting Ventilator Respiratory Rate 24 Setting Ventilator Respiratory Rate 24 Setting Ventilator Respiratory Rate 24 Setting Ventilator Respiratory Rate 24 Setting Ventilator Respiratory Rate 24 Setting Ventilator Respiratory Rate 24 Setting Ventilator Respiratory Rate 24 Setting Ventilator Respiratory Rate 24 Setting Actual Respiratory Rate 24 Actual Respiratory Rate 24 Actual Respiratory Rate 24 Actual Respiratory Rate 24 Actual Respiratory Rate 24 Actual Respiratory Rate 24 Actual Respiratory Rate 24 Actual Respiratory Rate 24 Actual Respiratory Rate 24 Actual Respiratory Rate 24 Positive End Expiratory 5 Pressure Positive End Expiratory 5 Pressure Positive End Expiratory 5 Pressure Positive End Expiratory 5 Pressure Positive End Expiratory 5 Pressure Positive End Expiratory 5 Pressure Positive End Expiratory 5 Pressure Positive End Expiratory 5 Pressure Positive End Expiratory 5 Pressure Positive End Expiratory 5 Pressure Positive End Expiratory 5 Pressure Peak Inspiratory Airway 31 Pressure Peak Inspiratory Airway 31 Pressure Peak Inspiratory Airway 30 Pressure Peak Inspiratory Airway 32 Pressure Peak Inspiratory Airway 31 Pressure Peak Inspiratory Airway 32 Pressure Peak Inspiratory Airway 31 Pressure Peak Inspiratory Airway 31 Pressure Peak Inspiratory Airway 33 Pressure Peak Inspiratory Airway 32 Pressure Results - Laboratory Findings CBC and BMP: 01/21/19 04:00 01/21/19 04:00 ABG ABG pH 7.32 pH Units (7.32-7.45) 01/21/19 05:02 ABG pCO2 45 mmHg (35-45) 01/21/19 05:02 ABG pO2 68 mmHg (85-104) L 01/21/19 05:02 ABG O2 Saturation 91 % (95-98) L 01/21/19 05:02 PT/INR, D-dimer PT 15.5 Seconds (9.4-12.1) H 01/14/19 17:30 Abnormal lab findings: Abnormal lab results WBC 14.9 K/mcL (4.3-11.1) H 01/21/19 04:00 RBC 2.98 M/mcL (4.19-5.50) L 01/21/19 04:00 Hgb 8.5 g/dL (12.9-16.9) L 01/21/19 04:00 Hct 27.7 % (37.5-50.1) L 01/21/19 04:00 MCH 27.8 pg (28.0-33.3) L 01/20/19 04:25 MCHC 30.7 g/dL (31.6-35.5) L 01/21/19 04:00 RDW 18.6 % (11.5-14.5) H 01/21/19 04:00 Plt Count 499 K/mcL (140-400) H 01/20/19 04:25 12.0 % (0-4) H 01/19/19 03:44 2.0 % (0) H 01/19/19 03:44 4.0 % (0) H 01/16/19 05:12 12.5 K/mcL (1.6-8.9) H 01/21/19 04:00 0.5 K/mcL (0.6-4.6) L 01/11/19 03:45 1.8 K/mcL (0.0-1.3) H 01/19/19 03:44 Nucleated RBCs/100 WBC 0.1 /100 WBC (0) H 01/18/19 05:40 Present (Not Present) A 01/21/19 04:00 Increased (Normal) H 01/20/19 04:25 Present (Not Present) A 01/13/19 04:00 1+ (Not Present) A 01/19/19 03:44 Present (Not Present) A 01/21/19 04:00 1+ (Not Present) A 01/21/19 04:00 Present (Not Present) A 01/13/19 04:00 1+ (Not Present) A 01/11/19 03:45 1+ (Not Present) A 01/11/19 03:45 ESR >= 130 mm/hr (0-10) H 01/17/19 04:20 PT 15.5 Seconds (9.4-12.1) H 01/14/19 17:30 APTT 23.2 Seconds (26.0-36.0) L D 01/14/19 17:30 Heparin Anti-Xa, Unfract 0.00 IU/mL (0.30-0.70) L 01/14/19 17:30 ABG pH 7.18 pH Units (7.32-7.45) L* 01/20/19 11:55 ABG pCO2 48 mmHg (35-45) H 01/20/19 11:55 ABG pO2 68 mmHg (85-104) L 01/21/19 05:02 ABG HCO3 18 mEq/L (21-27) L 01/20/19 11:55 ABG Total CO2 19 mEq/L (20-26) L 01/20/19 11:55 ABG O2 Saturation 91 % (95-98) L 01/21/19 05:02 ABG Base Excess -3 mEq/L (-2 to 3) L 01/21/19 05:02 Sodium 128 mEq/L (136-145) L 01/14/19 09:10 Potassium 5.4 mEq/L (3.5-5.1) H 01/20/19 20:00 Chloride 110 mEq/L (98-107) H 01/21/19 04:00 Carbon Dioxide 18 mEq/L (23-29) L 01/20/19 20:00 BUN 54 mg/dL (8-23) H 01/21/19 04:00 1.96 mg/dL (0.70-1.30) H 01/21/19 04:00 Est GFR ( Amer) 41 (> 60) L 01/21/19 04:00 Est GFR (Non-Af Amer) 34 (> 60) L 01/21/19 04:00 28 (6-26) H 01/21/19 04:00 Glucose 181 mg/dL (70-105) H 01/21/19 04:00 POC Glucose 176 mg/dL (70-99) H 01/20/19 23:23 6.2 % (-5.6) H 01/07/19 08:46 305 (280-300) H 01/21/19 04:00 Lactic Acid 2.4 mmol/L (0.5-2.2) H 01/10/19 00:14 Calcium 8.4 mg/dL (8.6-10.3) L 01/20/19 16:35 Venous Ioniz Calcium 1.08 mmol/L (1.15-1.35) L 01/11/19 04:14 Phosphorus 5.5 mg/dL (2.7-4.5) H 01/21/19 04:00 Iron < 10 mcg/dL (65-175) L 01/18/19 05:40 98 mg/dL (203-362) L 01/18/19 05:40 AST 9 Units/L (13-39) L 01/12/19 11:21 23 Units/L (30-223) L 01/20/19 08:03 167 mg/L (Less than 10) H 01/17/19 04:20 B-Natriuretic Peptide 300 pg/mL (Less than 100) H 01/09/19 15:18 4.4 g/dL (6.4-8.9) L 01/12/19 11:21 2.3 g/dL (3.5-5.7) L 01/12/19 11:21 2.1 g/dL (2.4-3.5) L 01/12/19 11:21 11.5 mg/dL (17.0-34.0) L 01/17/19 04:20 Triglycerides 179 mg/dL (< 150) H 01/10/19 04:15 6 Units/L (11-82) L 01/07/19 08:46 2.14 ng/mL (0.00-0.15) H 01/16/19 16:09 Cloudy (Clear) A 01/07/19 11:03 Ur Leukocyte Esterase Moderate (Negative) H 01/07/19 11:03 3-5 per hpf (0-3) H 01/07/19 11:03 50-100 per hpf (0-3) H 01/07/19 11:03 Ur Squamous Epith Cells Many per lpf (None-Few) H 01/07/19 11:03 Many per hpf (None-Few) H 01/07/19 11:03 Ur Culture Indicated? YES (NO) A 01/07/19 11:03 Fluid Appearance Cloudy (Clear) A 01/19/19 08:30 Positive (Negative) A 01/17/19 08:42 Crossmatch See Detail 01/17/19 12:25 - Microbiology Findings Microbiology Findings: Microbiology, Last 48 Hours 01/19/19 08:30 Acid Fast Stain - Final Right Middle Lobe Lung 01/19/19 08:30 Respiratory Culture - Preliminary Right Middle Lobe Lung 01/18/19 14:00 Wound Culture - Preliminary Abdomen Gram Positive Cocci 01/19/19 08:30 Fungal Culture - Preliminary Right Middle Lobe Lung Culture is incubating. 01/17/19 01:30 Wound Culture - Preliminary Abdomen Group G Streptococcus Gram Positive Cocci Gram Positive Cocci#2 01/18/19 14:00 Fungal Culture - Preliminary Aspirate Culture is incubating. 01/18/19 14:00 Anaerobic Culture - Preliminary Aspirate Culture is incubating. - Clinical Findings Intake & Output: Intake & Output 01/20/19 01/21/19 01/21/19 23:59 07:59 15:59 Intake Total 3882 / 6124 400 / 400 Output Total 235 / 1019 655 / 655 Balance 3647 / 5105 -255 / -255 Weight 101.8 kg
[2019-01-21] MEDS: Micafungin 100 MG in 0.9 % Sodium Chloride Mini Bag 100 ML IVPB SCH (10:05)
--- NOTE | 2019-01-21 10:54 | AcuteCareSurgery Progress Note ---
<Lu Calix - Last Filed: 01/21/19 11:09> Date of Encounter: 01/21/19 Time of Encounter: 10:52 - Assessment and Plan (1) Colon obstruction Current Visit: Yes Status: Acute Status post laparotomy with lysis of adhesions, unavoidable enterotomy, takedown colostomy, left colon resection, transverse colostomy, small bowel resection wi th primary anastomosis day 12 Status post interventional radiology CT-guided abdominal abscess drainage with drains placed 2. Purulent fluid removed. 01/18/19 CT abdomen and pelvis 01/20/19- Right lower lobe pneumonia, dense consolidation left lung base, and abdomen no new focal fluid collections, extensive edema, ascites and complex fluid are stable since prior. Mild wall thickening of the bowel without pneumatosis, complex fluid and air within the midline and left lower quadrant incision sites. Remains intubated, sedated Continues to require levophed for pressor support Febrile, MAXIMUM TEMPERATURE overnight 100.5 Leukocytosis improving, currently 14.9 Wound culture positive for group G Streptococcus, enterococcus faecalis, gram- positive cocci Right middle lobe lung - respiratory culture shows many WBC, bacteria, few gram- positive cocci, few yeast. No acid fast bacilli. Fungal culture remains pending Aspirate-anaerobic and fungal cultures pending Blood cultures remain pending Antibiotic coverage-cefepime, clindamycin, micafungin, vancomycin Nutrition-TPN Continue trending labs. Continues to have hyperphosphatemia, TONO continues Continue monitoring output of colostomy- small amount of liquid stool in colostomy bag today G-tube-450 mL output Continue monitoring output of FARIDA drains x2 - 10 ml, 45 ml, SS fluid Continue wound care, daily dressing and packing changes (2) Sepsis Current Visit: Yes Status: Acute Continues to require levophed - CT abdomen and pelvis 01/20/19-new extensive right lower lobe airspace disease with trace right pleural effusion suggesting new right lower lobe pneumonia, persistent dense consolidation and pleural effusion the left lung base. 2 percutaneous drainage catheters left abdomen with resolution of previously seen focal fluid collections, extensive edema, ascites, and complex fluid in the abdomen pelvis which is stable to prior, mild wall thickening of the bowel with no evidence of pneumatosis, possible dehiscent anterior abdominal wall wounds with skin wilmar but complex fluid and air within the midline and left lower quadrant incision sites. Secondary to ischemic bowel, purulent intrabdominal abscess x2, pneumonia, aspiration Antibiotic coverage currently includes cefepime, clindamycin, micafungin, vancomycin Improvement in leukocytosis to 14.9, patient was febrile overnight to 100.5 Management per primary Qualifiers: Sepsis type: Streptococcus, other Qualified Code(s): A40.8 - Other strepto coccal sepsis (3) Acute respiratory failure with hypoxia Current Visit: Yes Status: Acute Patient intubated, sedated in the ICU Continues to require pressor support ICU team to manage (4) DVT prophylaxis Current Visit: Yes Status: Acute SCDs Subjective Narrative: Patient seen and examined at bedside today. He remains intubated, sedated and in the ICU. His leukocytosis has improved, currently 14.9 down from 25.5 yesterday. He was febrile overnight up to 100.5. FARIDA drains have had 10 mL and 45 mL serosanguineous output today. His colostomy continues to have output and scant drainage from G-tube. Objective Vital Signs - Last 8 Hours Pulse Resp BP Pulse Ox 01/21/19 10:00 62 24 102/51 95 01/21/19 09:21 24 102/51 95 01/21/19 09:00 62 24 102/51 95 01/21/19 08:00 66 24 98/52 95 01/21/19 07:42 24 98/52 95 01/21/19 07:00 62 24 99/44 96 01/21/19 06:12 24 107/47 94 01/21/19 06:00 64 24 101/43 94 01/21/19 05:00 63 24 106/45 95 01/21/19 04:00 62 24 112/53 95 01/21/19 03:38 24 127/57 94 01/21/19 03:30 62 01/21/19 03:00 62 24 127/59 94 Intake and Output 01/20/19 01/21/19 01/21/19 23:59 07:59 15:59 Intake Total 3882 / 6124 400 / 400 Output Total 235 / 1019 655 / 1255 600 / 1255 Balance 3647 / 5105 -255 / -855 -600 / -855 Intake: IV Fluids 3532 / 4892 400 / 400 0.9 % Sodium Chloride 1,000 ML 1000 / 1000 @ 999 mls/hr IVC .Q1H1M [facility] Rx# :[id number] PRECEDEX Premix 400 mcg In 100 200 / 380 100 / 100 ml @ 0.2 MCG/KG/HR 4.65 mls/hr IVC .[id number] [facility] Rx#:[id number] FentaNYL (PF) 1,000 MCG In 0.9 100 / 300 100 / 100 % Sodium Chloride 80 ML @ 50 MCG/HR 5 mls/hr IVC CONT [facility] Rx #:[id number] Levophed 8 MG In Dextrose 5% 362 / 472 150 / 150 250 ML @ 8 MCG/MIN 15.48 mls/hr IVC CONT [facility] Rx#:[id number] Sodium Bicarbonate 150 MEQ In 1150 / 1150 Dextrose 5% 1,000 ML @ 100 mls/ hr IVC .[id number] [facility] Rx#: [id number] Maxipime 2,000 MG In Water for 20 / 40 inj. (sterile) 20 ML @ 300 mls/ hr IVP Q12H [facility] Rx#:[id number] Flexbumin 25 gm In 100 ml @ 60 300 / 400 mls/hr IVPB Q6HR [facility] Rx#: [id number] Cleocin Premix 600 MG/50 ML 600 50 / 200 50 / 50 mg In 50 ml @ 50 mls/hr IVPB Q8HR [facility] Rx#:[id number] Mycamine 100 MG In 0.9 % Sodium 100 / 100 Chloride (Mini-Bag +) 100 ML @ 100 mls/hr IVPB DAILY [facility] Rx#: [id number] Vancocin 1,250 MG In 0.9 % 250 / 250 Sodium Chloride 250 ML @ 166.67 mls/hr IVPB Q24H [facility] Rx#: [id number] Blood Product 350 / 710 Rbcs Leuko Poor As-1 Unit 350 / 350 [id number] Output: Stool 0 / 0 25 / 25 Other 75 / 75 Catheter 200 / 975 500 / 650 150 / 650 Gastric Drainage 450 / 450 Wound Drainage 35 / 44 55 / 55 0 / 55 Left Abd, FARIDA # 2 10 / 10 0 / 10 Left Abd, FARIDA #1 30 / 32 45 / 45 0 / 45 Other: Weight 101.8 kg Blood Glucose* 224 176 165 Patient Weight 01/21/19 23:59 Weight 101.8 kg - General physical appearance well developed, no distress, other (Pallor, remains intubated, sedated) - Eyes PERRL - ENT dry mucosa - Neck Neck exam: trachea midline, no venous distension - Respiratory normal expansion, normal respiratory effort, other (Rhonchi and coarse breath sounds bilaterally) - Cardiovascular Cardiovascular exam: Present: RRR, no murmurs/rubs/gallops. Absent: JVD - Abdomen Abdomen: Present: bowel sounds present, soft, non tender. Absent: distended, guarding, rebound - Incision Incision: Present: clean and dry (Midline incision is open in some areas with packing in place. Very scant serosanguineous drainage on dressing. No erythema or induration noted. FARIDA drains [address], scant serosanguineous drainage. G- tube in place, minimal green bile output.), intact - Integumentary no rash, no abnormal pigmentation - Neurologic other (Unable to assess, patient intubated, sedated) - Musculoskeletal normal posture - Psychiatric other (Unable to assess, patient intubated, sedated) - Labs 01/21/19 04:00 01/21/19 04:00 Diabetes panel 01/20/19 01/20/19 01/20/19 Range/Units 08:03 16:35 20:00 Sodium 139 140 138 (136-145) mEq/L Potassium 5.3 H 5.6 H 5.4 H (3.5-5.1) mEq/L Chloride 116 H 112 H 111 H (98-107) mEq/L Carbon Dioxide 15 L 16 L 18 L (23-29) mEq/L BUN 56 H 54 H 55 H (8-23) mg/dL Creatinine 1.86 H 1.90 H 1.94 H (0.70-1.30) mg/dL Glucose 103 172 H 249 H (70-105) mg/dL Calcium 8.0 L 8.4 L 8.6 (8.6-10.3) mg/dL Albumin 3.5 (3.5-5.7) g/dL 01/21/19 Range/Units 04:00 Sodium 138 (136-145) mEq/L Potassium 4.8 (3.5-5.1) mEq/L Chloride 110 H (98-107) mEq/L Carbon Dioxide 23 (23-29) mEq/L BUN 54 H (8-23) mg/dL Creatinine 1.96 H (0.70-1.30) mg/dL Glucose 181 H (70-105) mg/dL Calcium 8.6 (8.6-10.3) mg/dL Albumin (3.5-5.7) g/dL Calcium panel 01/20/19 01/20/19 01/20/19 Range/Units 08:03 16:35 20:00 Calcium 8.0 L 8.4 L 8.6 (8.6-10.3) mg/dL Phosphorus 6.0 H (2.7-4.5) mg/dL Albumin 3.5 (3.5-5.7) g/dL 01/21/19 Range/Units 04:00 Calcium 8.6 (8.6-10.3) mg/dL Phosphorus 5.5 H (2.7-4.5) mg/dL Albumin (3.5-5.7) g/dL Pituitary panel 01/20/19 01/20/19 01/20/19 Range/Units 08:03 16:35 20:00 Sodium 139 140 138 (136-145) mEq/L Potassium 5.3 H 5.6 H 5.4 H (3.5-5.1) mEq/L Chloride 116 H 112 H 111 H (98-107) mEq/L Carbon Dioxide 15 L 16 L 18 L (23-29) mEq/L BUN 56 H 54 H 55 H (8-23) mg/dL Creatinine 1.86 H 1.90 H 1.94 H (0.70-1.30) mg/dL Glucose 103 172 H 249 H (70-105) mg/dL Calcium 8.0 L 8.4 L 8.6 (8.6-10.3) mg/dL 01/21/19 Range/Units 04:00 Sodium 138 (136-145) mEq/L Potassium 4.8 (3.5-5.1) mEq/L Chloride 110 H (98-107) mEq/L Carbon Dioxide 23 (23-29) mEq/L BUN 54 H (8-23) mg/dL Creatinine 1.96 H (0.70-1.30) mg/dL Glucose 181 H (70-105) mg/dL Calcium 8.6 (8.6-10.3) mg/dL Adrenal panel 01/20/19 01/20/19 01/20/19 Range/Units 08:03 16:35 20:00 Sodium 139 140 138 (136-145) mEq/L Potassium 5.3 H 5.6 H 5.4 H (3.5-5.1) mEq/L Chloride 116 H 112 H 111 H (98-107) mEq/L Carbon Dioxide 15 L 16 L 18 L (23-29) mEq/L BUN 56 H 54 H 55 H (8-23) mg/dL Creatinine 1.86 H 1.90 H 1.94 H (0.70-1.30) mg/dL Glucose 103 172 H 249 H (70-105) mg/dL Calcium 8.0 L 8.4 L 8.6 (8.6-10.3) mg/dL Albumin 3.5 (3.5-5.7) g/dL 01/21/19 Range/Units 04:00 Sodium 138 (136-145) mEq/L Potassium 4.8 (3.5-5.1) mEq/L Chloride 110 H (98-107) mEq/L Carbon Dioxide 23 (23-29) mEq/L BUN 54 H (8-23) mg/dL Creatinine 1.96 H (0.70-1.30) mg/dL Glucose 181 H (70-105) mg/dL Calcium 8.6 (8.6-10.3) mg/dL Albumin (3.5-5.7) g/dL Consult Discharge Plan - Plan Referrals: Ranjit Rodriguez MD [Primary Care Provider] - <Ranjit Zhong - Last Filed: 01/21/19 11:15> Date of Encounter: 01/21/19 - Assessment and Plan (1) Colon obstruction Current Visit: Yes Status: Acute Objective Vital Signs - Last 8 Hours Pulse Resp BP Pulse Ox 01/21/19 10:00 62 24 102/51 95 01/21/19 09:21 24 102/51 95 01/21/19 09:00 62 24 102/51 95 01/21/19 08:00 66 24 98/52 95 01/21/19 07:42 24 98/52 95 01/21/19 07:00 62 24 99/44 96 01/21/19 06:12 24 107/47 94 01/21/19 06:00 64 24 101/43 94 01/21/19 05:00 63 24 106/45 95 06/23/19 04:00 62 24 112/53 95 01/21/19 03:38 24 127/57 94 01/21/19 03:30 62 Intake and Output 01/20/19 01/21/19 01/21/19 23:59 07:59 15:59 Intake Total 3882 / 6124 400 / 400 Output Total 235 / 1019 655 / 1255 600 / 1255 Balance 3647 / 5105 -255 / -855 -600 / -855 Intake: IV Fluids 3532 / 4892 400 / 400 0.9 % Sodium Chloride 1,000 ML 1000 / 1000 @ 999 mls/hr IVC .Q1H1M [facility] Rx# :[id number] PRECEDEX Premix 400 mcg In 100 200 / 380 100 / 100 ml @ 0.2 MCG/KG/HR 4.65 mls/hr IVC .[id number] [facility] Rx#:[id number] FentaNYL (PF) 1,000 MCG In 0.9 100 / 300 100 / 100 % Sodium Chloride 80 ML @ 50 MCG/HR 5 mls/hr IVC CONT [facility] Rx #:[id number] Levophed 8 MG In Dextrose 5% 362 / 472 150 / 150 250 ML @ 8 MCG/MIN 15.48 mls/hr IVC CONT [facility] Rx#:[id number] Sodium Bicarbonate 150 MEQ In 1150 / 1150 Dextrose 5% 1,000 ML @ 100 mls/ hr IVC .[id number] [facility] Rx#: [id number] Maxipime 2,000 MG In Water for 20 / 40 inj. (sterile) 20 ML @ 300 mls/ hr IVP Q12H [facility] Rx#:[id number] Flexbumin 25 gm In 100 ml @ 60 300 / 400 mls/hr IVPB Q6HR [facility] Rx#: [id number] Cleocin Premix 600 MG/50 ML 600 50 / 200 50 / 50 mg In 50 ml @ 50 mls/hr IVPB Q8HR [facility] Rx#:[id number] Mycamine 100 MG In 0.9 % Sodium 100 / 100 Chloride (Mini-Bag +) 100 ML @ 100 mls/hr IVPB DAILY [facility] Rx#: [id number] Vancocin 1,250 MG In 0.9 % 250 / 250 Sodium Chloride 250 ML @ 166.67 mls/hr IVPB Q24H [facility] Rx#: [id number] Blood Product 350 / 710 Rbcs Leuko Poor As-1 Unit 350 / 350 [id number] Output: Stool 0 / 0 25 / 25 Other 75 / 75 Catheter 200 / 975 500 / 650 150 / 650 Gastric Drainage 450 / 450 Wound Drainage 35 44 55 / 55 0 / 55 Left Abd, FARIDA # 2 10 / 0 / 10 Left Abd, FARIDA #1 45 / 45 0 / 45 Other: Weight 101.8 kg Blood Glucose* 224 176 165 Patient Weight 01/21/19 23:59 Weight 101.8 kg - Labs 01/21/19 04:00 01/21/19 04:00 Diabetes panel 01/20/19 01/20/19 01/20/19 Range/Units 08:03 16:35 20:00 Sodium 139 140 138 (136-145) mEq/L Potassium 5.3 H 5.6 H 5.4 H (3.5-5.1) mEq/L Chloride 116 H 112 H 111 H (98-107) mEq/L Carbon Dioxide 15 L 16 L 18 L (23-29) mEq/L BUN 56 H 54 H 55 H (8-23) mg/dL Creatinine 1.86 H 1.90 H 1.94 H (0.70-1.30) mg/dL Glucose 103 172 H 249 H (70-105) mg/dL Calcium 8.0 L 8.4 L 8.6 (8.6-10.3) mg/dL Albumin 3.5 (3.5-5.7) g/dL 01/21/19 Range/Units 04:00 Sodium 138 (136-145) mEq/L Potassium 4.8 (3.5-5.1) mEq/L Chloride 110 H (98-107) mEq/L Carbon Dioxide 23 (23-29) mEq/L BUN 54 H (8-23) mg/dL Creatinine 1.96 H (0.70-1.30) mg/dL Glucose 181 H (70-105) mg/dL Calcium 8.6 (8.6-10.3) mg/dL Albumin (3.5-5.7) g/dL Calcium panel 01/20/19 01/20/19 01/20/19 Range/Units 08:03 16:35 20:00 Calcium 8.0 L 8.4 L 8.6 (8.6-10.3) mg/dL Phosphorus 6.0 H (2.7-4.5) mg/dL Albumin 3.5 (3.5-5.7) g/dL 01/21/19 Range/Units 04:00 Calcium 8.6 (8.6-10.3) mg/dL Phosphorus 5.5 H (2.7-4.5) mg/dL Albumin (3.5-5.7) g/dL Pituitary panel 01/20/19 01/20/19 01/20/19 Range/Units 08:03 16:35 20:00 Sodium 139 140 138 (136-145) mEq/L Potassium 5.3 H 5.6 H 5.4 H (3.5-5.1) mEq/L Chloride 116 H 112 H 111 H (98-107) mEq/L Carbon Dioxide 15 L 16 L 18 L (23-29) mEq/L BUN 56 H 54 H 55 H (8-23) mg/dL Creatinine 1.86 H 1.90 H 1.94 H (0.70-1.30) mg/dL Glucose 103 172 H 249 H (70-105) mg/dL Calcium 8.0 L 8.4 L 8.6 (8.6-10.3) mg/dL 01/21/19 Range/Units 04:00 Sodium 138 (136-145) mEq/L Potassium 4.8 (3.5-5.1) mEq/L Chloride 110 H (98-107) mEq/L Carbon Dioxide 23 (23-29) mEq/L BUN 54 H (8-23) mg/dL Creatinine 1.96 H (0.70-1.30) mg/dL Glucose 181 H (70-105) mg/dL Calcium 8.6 (8.6-10.3) mg/dL Adrenal panel 01/20/19 01/20/19 01/20/19 Range/Units 08:03 16:35 20:00 Sodium 139 140 138 (136-145) mEq/L Potassium 5.3 H 5.6 H 5.4 H (3.5-5.1) mEq/L Chloride 116 H 112 H 111 H (98-107) mEq/L Carbon Dioxide 15 L 16 L 18 L (23-29) mEq/L BUN 56 H 54 H 55 H (8-23) mg/dL Creatinine 1.86 H 1.90 H 1.94 H (0.70-1.30) mg/dL Glucose 103 172 H 249 H (70-105) mg/dL Calcium 8.0 L 8.4 L 8.6 (8.6-10.3) mg/dL Albumin 3.5 (3.5-5.7) g/dL 01/21/19 Range/Units 04:00 Sodium 138 (136-145) mEq/L Potassium 4.8 (3.5-5.1) mEq/L Chloride 110 H (98-107) mEq/L Carbon Dioxide 23 (23-29) mEq/L BUN 54 H (8-23) mg/dL Creatinine 1.96 H (0.70-1.30) mg/dL Glucose 181 H (70-105) mg/dL Calcium 8.6 (8.6-10.3) mg/dL Albumin (3.5-5.7) g/dL - Attending Attestation I examined this patient and my medical decision-making was reviewed with the Resident Physician. I agree with the documented findings, disposition and treatment plan as described except to the extent set forth below. The patient is seen and evaluated on morning rounds with the acute care surgery team and the resident. The patient is doing better. The pressor agents are lower. He seemed to do well with volume expansion. His breath sounds have improved. And today he has bowel sounds. No intra-abdominal fluid collections. Overall improved. Ranjit Zhong MD FACS
[2019-01-21] MEDS: Sodium Bicarbonate 150 MEQ in D5% in Water 1,000 ML IVC SCH ×2 (12:07→23:31)
[2019-01-21] MEDS: *HR* Dextrose 50 % in Water (Syg) 50 ML SYRINGE IVP PRN (12:18)
[2019-01-21 14:56] LABS: Calcium 8.2 mg/dL (8.6-10.3); Phosphorous 5.1 mg/dL (2.7-4.5); Potassium 4.3 mEq/L (3.5-5.1)
[2019-01-21 16:11] LABS: ABG Base Excess -5 mEq/L (-2 to 3); ABG HCO3 21 mEq/L (21-27); ABG Oxygen Saturation 94 % (95-98); ABG PCO2 40 mmHg (35-45); ABG PH 7.33 pH Units (7.32-7.45); ABG PO2 76 mmHg (85-104); ABG TCO2 22 mEq/L (20-26); Blood Gas Modality VC; Blood Gas PEEP 5 cm H2O; Blood Gas VT 500 cc
[2019-01-21] MEDS ORDERED: Clinimix E 5%-15% SOLUTION 2,000 ML with MVI, adult with vitamin K 10 ML, Trace Eleme... IVC SCH (17:00)
[2019-01-21] MEDS ORDERED: Clinimix 5%-20% SOLUTION 2,000 ML with MVI, adult with vitamin K 10 ML IVC SCH (17:00)
[2019-01-21] MEDS: Clinimix 5%-20% SOLUTION 2,000 ML with MVI, adult with vitamin K 10 ML, Calcium Gluco... IVC SCH (17:46)
[2019-01-21] MEDS: Albumin 25% 25gram/100mL 25 GM/100 ML IV.SOLN IVPB SCH ×3 (17:47→23:29)
[2019-01-21] MEDS: Latanoprost 2.5 ML BOTTLE RIGHT EYE SCH (19:55)
[2019-01-21 23:26] LABS: Influenza A PCR Body Fluid NOT DETECTED; Influenza B PCR Body Fluid NOT DETECTED; RVP Body Fluid Source BAL RML
[2019-01-22] MEDS: Dexmedetomidine HCl 400 MCG/100 ML MLS IVC SCH ×4 (03:35→23:51)
[2019-01-22] MEDS: Insulin LISPRO 300 UNITS/3 ML VIAL SQ SCH ×6 (03:58→23:52)
[2019-01-22] MEDS: Artificial Tears SOLN 15 ML BOTTLE BOTH EYES SCH ×6 (03:59→23:52)
[2019-01-22] MEDS: Ipratropium/Albuterol Neb 3 ML IH SCH ×6 (04:11→23:42)
[2019-01-22] MEDS: Cefepime HCl 2,000 MG in Water for inj. (sterile) 20 ML IVP SCH ×2 (04:50→17:36)
[2019-01-22 04:54] LABS: Calcium 8.6 mg/dL (8.6-10.3); Magnesium 2.4 mg/dL (1.6-2.6); Phosphorous 5.7 mg/dL (2.7-4.5); Potassium 4.8 mEq/L (3.5-5.1)
[2019-01-22 04:57] LABS: ABG Base Excess -5 mEq/L (-2 to 3); ABG HCO3 21 mEq/L (21-27); ABG Oxygen Saturation 94 % (95-98); ABG PCO2 43 mmHg (35-45); ABG PO2 77 mmHg (85-104); ABG TCO2 22 mEq/L (20-26); Blood Gas PEEP 5 cm H2O; Blood Gas VT 500 cc
[2019-01-22] MEDS: FentaNYL (PF) 1,000 MCG in 0.9 % Sodium Chloride 80 ML IVC SCH ×2 (06:10→16:15)
--- NOTE | 2019-01-22 08:00 | AcuteCareSurgery Progress Note ---
Date of Encounter: 01/22/19 Time of Encounter: 08:00 - Assessment and Plan (1) Colon obstruction Current Visit: Yes Status: Acute Status post laparotomy with lysis of adhesions, unavoidable enterotomy, takedown colostomy, left colon resection, transverse colostomy, small bowel resection with primary anastomosis day 14 Status post interventional radiology CT-guided abdominal abscess drainage with drains placed 2. Purulent fluid removed. 01/18/19 CT abdomen and pelvis 01/20/19- Right lower lobe pneumonia, dense consolidation left lung base, and abdomen no new focal fluid collections, extensive edema, ascites and complex fluid are stable since prior. Mild wall thickening of the bowel without pneumatosis, complex fluid and air within the midline and left lower quadrant incision sites. Remains intubated, sedated Levohphed was discontinued however pressure remains soft. Afebrile overnight Leukocytosis has resolved, currently 10.0 Wound culture positive for group G Streptococcus, enterococcus faecalis, yeast Right middle lobe lung - respiratory culture shows many WBC, bacteria, few gram- positive cocci, few yeast. No acid fast bacilli. Fungal culture remains pending Aspirate-anaerobic and fungal cultures pending Blood cultures negative Antibiotic coverage-cefepime, clindamycin, micafungin, vancomycin. Infectious disease recommendations appreciated. Nutrition-TPN Continue trending labs. Continues to have hyperphosphatemia, TONO has worsened, Hemoglobin decreased to 7.4 Continue monitoring output of colostomy- Continues to have output G-tube-50 mL output Continue monitoring output of FARIDA drains x2 - scant SS fluid Continue wound care, daily dressing and packing changes (2) Sepsis Current Visit: Yes Status: Acute Levophed held, however pressure remains soft. Afebrile, no tachycardia, leukocytosis resolved, WBC 10.0, continue to be tachypnic - CT abdomen and pelvis 01/20/19-new extensive right lower lobe airspace disease with trace right pleural effusion suggesting new right lower lobe pneumonia, persistent dense consolidation and pleural effusion the left lung base. 2 percutaneous drainage catheters left abdomen with resolution of previously seen focal fluid collections, extensive edema, ascites, and complex fluid in the abdomen pelvis which is stable to prior, mild wall thickening of the bowel with no evidence of pneumatosis, possible dehiscent anterior abdominal wall wounds with skin wilmar but complex fluid and air within the midline and left lower quadrant incision sites. Secondary to ischemic bowel, purulent intrabdominal abscess x2, pneumonia, aspiration Antibiotic coverage currently includes cefepime, clindamycin, micafungin, van comycin Management per primary Qualifiers: Sepsis type: Streptococcus, other Qualified Code(s): A40.8 - Other streptococcal sepsis (3) Acute respiratory failure with hypoxia Current Visit: Yes Status: Acute Patient intubated, sedated in the ICU Continue respiratory support ICU team to manage vent (4) TONO (acute kidney injury) Current Visit: Yes Status: Acute Patient sustained TONO, secondary to hypotension, sepsis, possibly secondary to vancomycin Renal function continues to decline BUN currently 57, Creatinine currently 2.28 Nephrology has been consulted by ICU team (5) DVT prophylaxis Current Visit: Yes Status: Acute SCDs Subjective Narrative: Patient seen and examined at bedside today. He remains intubated, sedated in the ICU. MAXIMUM TEMPERATURE at 99.9, tachypnic. Patient's levophed was discontinued however over the morning, the patient's blood pressure has remained soft. His leukocytosis has resolved, currently 10.0 down from 14.9. However his hemoglobin has also decreased to 7.4, down from 8.5. His acute kidney injury has worsened, possibly due to his sepsis versus his vancomycin. His wound cultures are positive for Enterococcus faecalis, group G Streptococcus, and yeast. Objective Vital Signs - Last 8 Hours Temp Pulse Resp BP Pulse Ox 01/22/19 07:51 99.9 F H 01/22/19 07:44 24 94 01/22/19 07:00 71 29 100/54 92 01/22/19 06:19 73 32 102/52 91 01/22/19 06:00 80 31 134/69 92 01/22/19 05:14 27 119/62 92 01/22/19 04:42 68 26 88/48 95 01/22/19 04:11 31 135/64 93 01/22/19 03:55 98.8 F 77 31 108/56 93 01/22/19 03:15 74 01/22/19 02:54 73 22 119/56 95 01/22/19 01:34 24 88/52 91 01/22/19 00:54 63 24 90/52 91 01/22/19 00:20 98.0 F Intake and Output 01/21/19 01/22/19 01/22/19 23:59 07:59 15:59 Intake Total 1032.8 / 2952.8 470 / 470 Output Total 375 / 1780 500 / 500 Balance 657.8 / 1172.8 -30 / -30 Intake: IV Fluids 1032.8 / 2952.8 470 / 470 PRECEDEX Premix 400 mcg In 100 200 / 400 100 / 100 ml @ 0.2 MCG/KG/HR 4.65 mls/hr IVC .[id number] [facility] Rx#:[id number] FentaNYL (PF) 1,000 MCG In 0.9 100 / 300 100 / 100 % Sodium Chloride 80 ML @ 50 MCG/HR 5 mls/hr IVC CONT [facility] Rx #:[id number] Levophed 8 MG In Dextrose 5% 112.8 / 262.8 250 ML @ 8 MCG/MIN 15.48 mls/hr IVC CONT [facility] Rx#:[id number] Diprivan 1,000 mg In 100 ml @ 5 100 / 100 MCG/KG/MIN 2.859 mls/hr IVC . Q24H [facility] Rx#:[id number] Maxipime 2,000 MG In Water for 20 / 40 20 / 20 inj. (sterile) 20 ML @ 300 mls/ hr IVP Q12H [facility] Rx#:[id number] Flexbumin 25 gm In 100 ml @ 60 200 / 200 100 / 100 mls/hr IVPB Q6HR [facility] Rx#: [id number] Cleocin Premix 600 MG/50 ML 600 50 / 150 50 / 50 mg In 50 ml @ 50 mls/hr IVPB Q8HR [facility] Rx#:[id number] Mycamine 100 MG In 0.9 % Sodium 100 / 100 Chloride (Mini-Bag +) 100 ML @ 100 mls/hr IVPB DAILY [facility] Rx#: [id number] Vancocin 1,250 MG In 0.9 % 250 / 250 Sodium Chloride 250 ML @ 166.67 mls/hr IVPB Q24H [facility] Rx#: [id number] Oral 0 / 0 0 / 0 Output: Urine 0 / 0 Stool 0 / 25 150 / 150 Catheter 375 / 1175 300 / 300 Gastric Drainage 0 / 450 50 / 50 Wound Drainage 0 / 55 0 / 0 Left Abd, FARIDA # 2 0 / 10 0 / 0 Left Abd, FARIDA #1 0 / 45 0 / 0 Other: Stool Consistency loose liquid Stool Color Brown Weight 101.8 kg 107.2 kg Blood Glucose* 206 174 Patient Weight 01/22/19 23:59 Weight 107.2 kg - General physical appearance no distress, other (Intubated, sedated) - Eyes PERRL - ENT dry mucosa - Neck Neck exam: trachea midline, no venous distension - Respiratory normal expansion, normal respiratory effort, other (Rhonchi and coarse breath sounds bilaterally) - Cardiovascular Cardiovascular exam: Present: RRR, no murmurs/rubs/gallops. Absent: JVD - Abdomen Abdomen: Present: bowel sounds present (Hypoactive, liquid stool in colostomy bag.), soft, distended - Incision Incision: Present: clean and dry, intact (Some packing in place, no drainage from incision. FARIDA drains x2 have scant sero sanginous drainage.). Absent: erythema - Integumentary no rash, other (Pallor) - Neurologic other (Intubated and sedated, unable to assess) - Musculoskeletal normal posture, other (1+ pitting edema in upper and lower extremities bilaterally) - Psychiatric other (Intubated and sedated, unable to assess) - Labs 01/22/19 10:27 01/22/19 03:53 Diabetes panel 01/21/19 01/22/19 Range/Units 14:00 03:53 Sodium 131 L 138 (136-145) mEq/L Potassium 4.3 4.8 (3.5-5.1) mEq/L Chloride 103 107 (98-107) mEq/L Carbon Dioxide 20 L 21 L (23-29) mEq/L BUN 52 H 57 H (8-23) mg/dL Creatinine 1.89 H 2.28 H (0.70-1.30) mg/dL Glucose 310 H 161 H (70-105) mg/dL Calcium 8.2 L 8.6 (8.6-10.3) mg/dL Albumin 3.0 L (3.5-5.7) g/dL Calcium panel 01/21/19 01/22/19 Range/Units 14:00 03:53 Calcium 8.2 L 8.6 (8.6-10.3) mg/dL Phosphorus 5.1 H 5.7 H (2.7-4.5) mg/dL Albumin 3.0 L (3.5-5.7) g/dL Pituitary panel 01/21/19 01/22/19 Range/Units 14:00 03:53 Sodium 131 L 138 (136-145) mEq/L Potassium 4.3 4.8 (3.5-5.1) mEq/L Chloride 103 107 (98-107) mEq/L Carbon Dioxide 20 L 21 L (23-29) mEq/L BUN 52 H 57 H (8-23) mg/dL Creatinine 1.89 H 2.28 H (0.70-1.30) mg/dL Glucose 310 H 161 H (70-105) mg/dL Calcium 8.2 L 8.6 (8.6-10.3) mg/dL Adrenal panel 01/21/19 01/22/19 Range/Units 14:00 03:53 Sodium 131 L 138 (136-145) mEq/L Potassium 4.3 4.8 (3.5-5.1) mEq/L Chloride 103 107 (98-107) mEq/L Carbon Dioxide 20 L 21 L (23-29) mEq/L BUN 52 H 57 H (8-23) mg/dL Creatinine 1.89 H 2.28 H (0.70-1.30) mg/dL Glucose 310 H 161 H (70-105) mg/dL Calcium 8.2 L 8.6 (8.6-10.3) mg/dL Albumin 3.0 L (3.5-5.7) g/dL Consult Discharge Plan - Plan Referrals: Ranjit Rodriguez MD [Primary Care Provider] -
--- NOTE | 2019-01-22 08:20 | Infectious Disease Consult ---
Infectious Disease-Consult - Data of Consult Requesting Physician: Ramon Waters MD Primary Care Provider: Ranjit Rodriguez MD - Results CBC & Chem 7: 01/21/19 04:00 01/22/19 03:53 - Line Documentation Line Documentation: PICC Line (Right upper extremity) - Exam Vitals: Temp Pulse Resp BP Pulse Ox 99.9 F H 70 26 89/49 92 01/22/19 08:00 01/22/19 08:00 01/22/19 08:00 01/22/19 08:00 01/22/19 08:00 Ascorbic Acid [Vitamin C] 1,000 mg PO DAILY 12/31/15 [History] Metoprolol [Lopressor] 100 mg PO BID 12/31/15 [History] Multivitamin [One Daily Essential] 1 tab PO DAILY 12/31/15 [History] Brimonidine Tartrate/Timolol [Combigan 0.2%-0.5% Eye Drops] 1 drop RIGHT EYE BID 10/18/16 [History] Insulin DETEMIR [Levemir Flextouch] 12 unit SQ BID 11/09/16 [History] Amiodarone [Cordarone] 200 mg PO DAILY 08/04/17 [History] Zolpidem [Ambien] 10 mg PO HS 08/04/17 [History] Bimatoprost [Lumigan] 1 drop RIGHT EYE HS 11/02/17 [History] Calcium Carbonate [Calcium] 600 mg PO DAILY 11/02/17 [History] Dorzolamide [Trusopt] 1 drop RIGHT EYE TID 11/02/17 [History] Tolterodine Tartrate [Detrol] 2 mg PO BID 11/02/17 [History] Docusate [Colace] 100 mg PO DAILY #14 capsule 12/06/18 [Rx] Amlodipine Besylate 10 mg PO DAILY 01/09/19 [History] Aspirin 325 mg PO DAILY 01/09/19 [History] Glimepiride [Amaryl] 4 mg PO DAILY 01/09/19 [History] Insulin ASPART [Novolog Flexpen] 4 - 8 unit SQ TIDWM 01/09/19 [History] 3 Allergy/AdvReac Type Severity Reaction Status Date / Time Penicillins Allergy Unknown Hives Verified 01/07/19 08:14 - Assessment and Plan (1) Sepsis Current Visit: Yes Status: Acute The patient had three SIRS criteria. Likely secondary to intra-abdominal fluid collections and possible aspiration PNA. WBC continues to trend up, but bandemia resolved. Tachycardia improved. Afebrile. Blood cultures drawn 01/09/19 are negative x 2 sets. Repeat blood cultures drawn 01/11/19 are NGTD x [address] Chest 01/16 shows bilateral pleural effusions with associated dependent upper and lower lobe airspace disease including consolidation, atelectasis and/or pna CT Abd/pelv 01/16 small peritoneal air possibly post-surgical, mild small bowel loops, gas within the nondependent urinary bladder which may relate due to recent instrumentation Wound culture 01/17/19 positive Group g strep Antibiotics Cefepime 2g q12h Flagyl 500mg q8 Vancomycin Per pharmacy Diflucan 400mg IV daily Recommendations -Group G strep adequately covered with 4th Gen cephalosporin and Vancomycin -Will stop flagyl and Vanc, Start Clindamycin 600mg IV q8h -Cultures continue to be pending -Management of vent per pulmonology Qualifiers: Sepsis type: Streptococcus, other Qualified Code(s): A40.8 - Other streptococcal sepsis SNOMED Code(s): 66045149 (2) Colostomy dysfunction Current Visit: Yes Status: Resolved Likely secondary to stenosis at colostomy site. Status post MARCY, unavoidable enterotomies, takedown colostomy and left colon resection, transverse colostomy, and SBR with primary anastamosis, and gastrostomy tube placement 01/08/[address] Cerda. Surgical site with foul-smelling drainage and wound dehiscence. Wound culture positive for GGS. Currently on Vanc, Cefepime. Stop flagyl + Vanc, start clindamycin. SNOMED Code(s): 22042478 (3) Dysphagia Current Visit: Yes Status: Acute Dysphagia, patient has failed modified barium swallow. Unknown cause of patient's dysphagia at this time. Although it is possible that the patient has damaged her vocal cords due to intubation, he has not been investigated. Additionally, the patient's family says that he has also been confused. CT Soft tissue neck was unrevealing for cause. Further workup and treatment per the primary team. Qualifiers: Dysphagia type: oropharyngeal phase Qualified Code(s): R13.12 - Dysphagia, oropharyngeal phase SNOMED Code(s): 22129072, 555998757 (4) Abdominal pain Current Visit: Yes Status: Acute Abdominal pain, secondary to colostomy dysfunction initially, but now concern for intra-abdominal abscess. Management per primary team and acute care surgery Qualifiers: Abdominal location: generalized Qualified Code(s): R10.84 - Generalized abdominal pain SNOMED Code(s): 57784217 (5) Acute kidney injury superimposed on CKD Current Visit: Yes Status: Acute TONO on CKD3. Patient presented with elevated serum creatinine which worsened during stay. Creatinine continues to trend upward, will Dose-adjust medications and avoid nephrotoxins as able. SNOMED Code(s): 06182996 (6) Atrial fibrillation Current Visit: Yes Status: Chronic Management per primary team Qualifiers: Atrial fibrillation type: paroxysmal Qualified Code(s): I48.0 - Paroxysmal atrial fibrillation SNOMED Code(s): 72850570 (7) Diabetes Current Visit: Yes Status: Acute On home insulin Management per primary team Qualifiers: Diabetes mellitus type: type 2 Diabetes mellitus fpc insulin use: without fpc use Diabetes mellitus complication status: without complication Qualified Code(s): E11.9 - Type 2 diabetes mellitus without complications SNOMED Code(s): 34882439 (8) Hydronephrosis, left Current Visit: No Status: Chronic Chronic, has payton catheter. SNOMED Code(s): 75651715 Past Med Surg Social Fam HX - Past Medical History Medical history: atrial fibrillation, cancer, coronary artery disease, diabetes, glaucoma, kidney stones, renal disease Additional medical history: rectal cancer, GI bleed r/t Xarelto. Psychiatric history: anxiety, depression - Past Surgical History Surgical History: pacemaker/AICD, other Additional surgical history: colon resection, hernia repair - 11/02/2017; eye sx., Pacer. - Social History Smoking Status: Never smoker Smokeless Tobacco Status: No Alcohol use: none Drug use: none - Family History Father Living Status: Hx Family Cardiac Disorders: Yes Mother Living Status: Consult Discharge Plan - Plan Referrals: Ranjit Rodriguez MD [Primary Care Provider] -
[2019-01-22] MEDS: Clindamycin 600 MG/50 ML 600 MG/50 ML IV.SOLN IVPB SCH ×3 (08:32→23:54)
[2019-01-22] MEDS: *HR* Amiodarone 200 MG TABLET PO SCH (08:33)
[2019-01-22] MEDS: Pantoprazole 40 MG VIAL IVP SCH (08:33)
[2019-01-22] MEDS: Chlorhexidine Rinse 15 ML MOUTHWASH MM SCH ×2 (08:33→20:23)
[2019-01-22] MEDS: Dorzolamide/Timolol 1 DROP RIGHT EYE SCH ×2 (08:34→20:22)
[2019-01-22] MEDS ORDERED: Aminoglycoside Consult 1 EACH MC ONE (08:58)
[2019-01-22] MEDS: Sodium Ferric Gluconat/Sucrose 125 MG in 0.9 % Sodium Chloride 100 ML IVPB SCH (09:12)
[2019-01-22 10:41] LABS: Hematocrit 24.2 % (37.5-50.1); Hemoglobin 7.4 g/dL (12.9-16.9); Mean Corpuscular HGB Conc 30.6 g/dL (31.6-35.5); Mean Corpuscular Hemoglobin 28.6 pg (28.0-33.3); Mean Corpuscular Volume 93.4 fL (83.0-100.0); Mean Platelet Volume 11.2 fL (9.4-12.4); Platelet Count 322 K/mcL (140-400); Red Blood Count 2.59 M/mcL (4.19-5.50); Red Cell Distribution Width 18.8 % (11.5-14.5)
--- NOTE | 2019-01-22 10:46 | Nephrology Consult Note ---
Date of Encounter: 01/22/19 Time of Encounter: 11:00 Assessment and Plan (1) Acute kidney injury superimposed on CKD Current Visit: Yes Status: Acute Elevated SCr in the setting of septic shock and exposure to nephrotoxins, vanco postop day 14 will check vanco level, avoid if possible and all nephrotoxins Will check UA and uric acid level Urine sodium, eosinophil results noted Discussed at length with family goals of care and whether open to [facility] if needed for volume management and clearance purposes (2) Acute respiratory failure with hypoxia Current Visit: Yes Status: Acute Vent management per primary team (3) Colostomy dysfunction Current Visit: Yes Status: Resolved Per surgery s/p revision History of Present Illness - Reason for Consult Consult date: 01/22/19 Acute Kidney Injury Requesting physician: Edin Tate - History of Present Illness 73 y o male with PMH of Afib, GIB, CAD, DM, CKD stage 3 and remote history of rectal cancer s/p resection with colectomy and chemo admitted with colostomy leakage 01/07/19 and underwent surgical revision 01/08 with ICU stay complicated by septic shock requiring transient pressor support. Transferred to the floor01/14/19 developing aspiration and ending up intubated. Pt is POD 13 for surgical revision of colectomy and required abscess drainage 01/18/19 with sepsis. Renal consulted for rising SCr at 2.28, GFR 28 with baseline around GFR 40-50s. Pt seen and examined intubated and sedated with family at bedside. Pt is noted hypotensive the past 2 days down to 80/40s despite volume resuscitations and on pressor support. Past Med Surg Social Fam HX - Past Medical History Medical history: atrial fibrillation, cancer, coronary artery disease, diabetes, glaucoma, kidney stones, renal disease Additional medical history: rectal cancer, GI bleed r/t Xarelto. Psychiatric history: anxiety, depression - Past Surgical History Surgical History: pacemaker/AICD, other Additional surgical history: colon resection, hernia repair - 11/02/2017; eye sx., Pacer. - Social History Smoking Status: Never smoker Smokeless Tobacco Status: No Alcohol use: none Drug use: none - Family History Father Living Status: Hx Family Cardiac Disorders: Yes Mother Living Status: Medications and Allergies Ascorbic Acid [Vitamin C] 1,000 mg PO DAILY 12/31/15 [History] Metoprolol [Lopressor] 100 mg PO BID 12/31/15 [History] Multivitamin [One Daily Essential] 1 tab PO DAILY 12/31/15 [History] Brimonidine Tartrate/Timolol [Combigan 0.2%-0.5% Eye Drops] 1 drop RIGHT EYE BID 10/18/16 [History] Insulin DETEMIR [Levemir Flextouch] 12 unit SQ BID 11/09/16 [History] Amiodarone [Cordarone] 200 mg PO DAILY 08/04/17 [History] Zolpidem [Ambien] 10 mg PO HS 08/04/17 [History] Bimatoprost [Lumigan] 1 drop RIGHT EYE HS 11/02/17 [History] Calcium Carbonate [Calcium] 600 mg PO DAILY 11/02/17 [History] Dorzolamide [Trusopt] 1 drop RIGHT EYE TID 11/02/17 [History] Tolterodine Tartrate [Detrol] 2 mg PO BID 11/02/17 [History] Docusate [Colace] 100 mg PO DAILY #14 capsule 12/06/18 [Rx] Amlodipine Besylate 10 mg PO DAILY 01/09/19 [History] Aspirin 325 mg PO DAILY 01/09/19 [History] Glimepiride [Amaryl] 4 mg PO DAILY 01/09/19 [History] Insulin ASPART [Novolog Flexpen] 4 - 8 unit SQ TIDWM 01/09/19 [History] Allergy/AdvReac Type Severity Reaction Status Date / Time Penicillins Allergy Unknown Hives Verified 01/07/19 08:14 Review of Systems ROS unobtainable: due to endotracheal tube Exam - Vital Signs Vital signs: Initial Vital Signs Temp Pulse Resp BP Pulse Ox 97.5 F L 60 16 147/77 97 01/07/19 08:12 01/07/19 08:12 01/07/19 08:12 01/07/19 08:12 01/07/19 08:12 Vital Signs - Last 8 Hours Temp Pulse Resp BP Pulse Ox 01/22/19 09:40 25 91 01/22/19 09:00 70 25 87/50 88 01/22/19 08:00 99.9 F H 70 26 89/49 92 01/22/19 07:51 99.9 F H 01/22/19 07:44 24 94 01/22/19 07:00 71 29 100/54 92 01/22/19 06:19 73 32 102/52 91 01/22/19 06:00 80 31 134/69 92 01/22/19 05:14 27 119/62 92 01/22/19 04:42 68 26 88/48 95 01/22/19 04:11 31 135/64 93 01/22/19 03:55 98.8 F 77 31 108/56 93 01/22/19 03:15 74 01/22/19 02:54 73 22 119/56 95 Intake and Output 01/21/19 01/22/19 01/22/19 23:59 07:59 15:59 Intake Total 1032.8 / 2952.8 470 / 570 100 / 570 Output Total 375 / 1780 500 / 500 Balance 657.8 / 1172.8 -30 / 70 100 / 70 Intake: IV Fluids 1032.8 / 2952.8 470 / 570 100 / 570 PRECEDEX Premix 400 mcg In 100 200 / 400 100 / 200 100 / 200 ml @ 0.2 MCG/KG/HR 4.65 mls/hr IVC .[id number] DANK Rx#:[id number] FentaNYL (PF) 1,000 MCG In 0.9 100 / 300 100 / 100 % Sodium Chloride 80 ML @ 50 MCG/HR 5 mls/hr IVC CONT DANK Rx #:[id number] Levophed 8 MG In Dextrose 5% 112.8 / 262.8 250 ML @ 8 MCG/MIN 15.48 mls/hr IVC CONT DANK Rx#:[id number] Diprivan 1,000 mg In 100 ml @ 5 100 / 100 MCG/KG/MIN 2.859 mls/hr IVC . Q24H DANK Rx#:[id number] Maxipime 2,000 MG In Water for 20 / 40 20 / 20 inj. (sterile) 20 ML @ 300 mls/ hr IVP Q12H DANK Rx#:[id number] Flexbumin 25 gm In 100 ml @ 60 200 / 200 100 / 100 mls/hr IVPB Q6HR DANK Rx#: [id number] Cleocin Premix 600 MG/50 ML 600 50 / 150 50 / 50 mg In 50 ml @ 50 mls/hr IVPB Q8HR DANK Rx#:[id number] Mycamine 100 MG In 0.9 % Sodium 100 / 100 Chloride (Mini-Bag +) 100 ML @ 100 mls/hr IVPB DAILY DANK Rx#: [id number] Vancocin 1,250 MG In 0.9 % 250 / 250 Sodium Chloride 250 ML @ 166.67 mls/hr IVPB Q24H DANK Rx#: [id number] Oral 0 / 0 0 / 0 Output: Urine 0 / 0 Stool 0 / 25 150 / 150 Catheter 375 / 1175 300 / 300 Gastric Drainage 0 / 450 50 / 50 Wound Drainage 0 / 55 0 / 0 Left Abd, FARIDA # 2 0 / 10 0 / 0 Left Abd, FARIDA #1 0 / 45 0 / 0 Other: Stool Consistency loose liquid Stool Color Brown Weight 101.8 kg 107.2 kg Blood Glucose* 206 174 Patient Weight 01/22/19 23:59 Weight 107.2 kg - General Appearance General appearance: sedated on ventilator, intubated EENT: ATNC, mucous membranes moist Neck: no JVD, supple Respiratory: course breath sounds Cardiology: edema (LE bilat extending o abdomen with scrotol edema), normal S1, normal S2 Gastrointestinal: no tenderness, no guarding, distended Integumentary: warm and dry Additional Comments: sedated Musculoskeletal: no deformities Additional Comments: sedated Results - Lab Results 01/22/19 10:27 01/22/19 03:53 Most recent lab results 01/22/19 01/22/19 03:53 04:54 ABG pH 7.30 L ABG pCO2 43 ABG pO2 77 L ABG HCO3 21 ABG O2 Saturation 94 L Calcium 8.6 Phosphorus 5.7 H Magnesium 2.4 Consult Discharge Plan - Plan Referrals: Ranjit Rodriguez MD [Primary Care Provider] -
[2019-01-22 10:59] LABS: Uric Acid 7.1 mg/dL (2.3-7.6)
[2019-01-22 11:15] LABS: Bilirubin,Urine Negative (Negative); Blood,Urine Large (Negative); Clarity,Urine Turbid (Clear); Color,Urine Dark Yellow (Yellow); Glucose,Urine (UA) Normal (Normal); Ketones,Urine Trace mg/dL (Negative); Leukocyte Esterase,Urine Moderate (Negative); Nitrite,Urine Negative (Negative); PH,Urine 5.5 pH Units (5.0-8.0); Protein,Urine >=300 mg/dL (Neg-Trace); Specific Gravity,Urine 1.026 (1.010-1.025); Urobilinogen,Urine Normal (Normal)
[2019-01-22 11:19] LABS: RSV PCR Body Fluid NOT DETECTED
[2019-01-22 11:29] LABS: Lymphocytes # 0.2 K/mcL (0.6-4.6); Monocytes # 0.2 K/mcL (0.0-1.3); Neutrophils # 9.6 K/mcL (1.6-8.9)
[2019-01-22 11:30] LABS: Platelet Estimate Normal (Normal)
[2019-01-22 11:31] LABS: Anisocytosis 1+ (Not Present); Polychromasia 1+ (Not Present)
[2019-01-22 11:33] LABS: Squamous Epithelial Cell,Urine Few per lpf (None-Few); WBC,Urine 15-30 per hpf (0-3)
[2019-01-22 11:35] LABS: Bacteria,Urine Few per hpf (None-Few)
[2019-01-22 11:36] LABS: Amorphous Sediment,Urine Moderate (Few)
[2019-01-22] MEDS: Micafungin 100 MG in 0.9 % Sodium Chloride Mini Bag 100 ML IVPB SCH (12:38)
[2019-01-22] MEDS: Sodium Bicarbonate 150 MEQ in D5% in Water 1,000 ML IVC SCH ×2 (12:39→22:16)
[2019-01-22] MEDS: Norepinephrine 8 MG in D5% in Water 250 ML IVC SCH (12:40)
--- NOTE | 2019-01-22 13:13 | Pulmonology Progress Note ---
<Edin Tate - Last Filed: 01/22/19 17:12> Date of Encounter: 01/22/19 Time of Encounter: 15:12 Assessment and Plan (1) Acute respiratory failure with hypoxia Current Visit: Yes Status: Acute - On 01/19: Patient developed respiratory failure with hypoxia, likely secondary to foreign body aspiration - Rapid response was called overhead, and patient was found to be hypoxic in his room, not following commands; continued to desat after being bagged - Decision was made to intubate; patient subsequently vomited and aspirated; was aggressively suctioned, and large foreign body was removed from airway - ENT documented a large body of dried barium and patients oropharynx, which likely broke off - Airway exam with bronchoscopy was performed; did not show any residual evidence of foreign body obstruction - Vent settings: Respiratory rate 24, inspired O2 100%, tidal volume 500, PEEP 5 Plan: - Continues to remain intubated and sedated; not a candidate for spontaneous breathing trial at this time due to level of sedation and vent requirements - Continue sedation with propofol, fentanyl, precede - Vent bundle in place - Repeat ABG in the a.m. (2) Sepsis Current Visit: Yes Status: Acute - Patients stay in the ICU has been complicated by septic shock - Potential infection sources include PNA, intra-abdominal fluid collection, abdominal wound - White count has decreased to 10.0 from 14.9 - CT chest 01/16: Bilateral pleural effusions with associated dependent upper and lower airspace disease including consolidation, possibly representing PNA - Abdominal wound culture 01/17/19: Group B strep, enterococcus faecalis, yeast species - Abdominal wound culture 01/18/19: Enterococcus faecalis, yeast species - Final sensitivity report for wound cultures are pending - Blood cultures have shown no growth to date - Infectious disease is following Plan: - Vancomycin discontinued; continue cefepime, clindamycin, micafungin - Awaiting final sensitivities for abdominal wound cultures; we will tailor antibiotic therapy accordingly - Repeat a.m. labs Qualifiers: Qualified Code(s): A41.9 - Sepsis, unspecified organism (3) Acute kidney injury Current Visit: Yes Status: Acute - Etiology unknown; likely multifactorial in the setting of sepsis and nephrotoxic medications - Creatinine has increased to 2.28 from 1.89 - Urine output has decreased in the last 24 hours - Receiving vancomycin as part of his antibiotic regimen for the treatment of pneumonia Plan: - Nephrology consulted; would appreciate further recommendations (4) Pneumonia Current Visit: Yes Status: Acute - Causative organism is unknown - CXR from 01/18 demonstrates left retrocardiac opacity favoring focal airspace disease - Infectious disease is following; antibiotics as noted above Qualifiers: Qualified Code(s): J18.9 - Pneumonia, unspecified organism (5) Colon obstruction Current Visit: Yes Status: Acute - S/P laparotomy with lysis of adhesions, unavoidable enterotomy, takedown colostomy, L: Resection, transverse colostomy, small bowel resection with primary anastomosis - S/P CT guided abdominal abscess drainage with drains placed - Surgery following; continue wound care (6) Hydronephrosis Current Visit: Yes Status: Acute - Chronic, has payton catheter Qualifiers: Qualified Code(s): N13.30 - Unspecified hydronephrosis (7) Diabetes Current Visit: Yes Status: Acute - Continue insulin Qualifiers: Qualified Code(s): E11.9 - Type 2 diabetes mellitus without complications Subjective Principal diagnosis: Postop colectomy and colostomy Interval history: Patient seen and examined at bedside this morning; currently intubated and sedated. Does not appear to be in any acute distress at this time. White count has decreased to 10.0 from 14.9. Despite receiving 4 bags of albumin yesterday for volume expansion, patients creatinine has worsened compared to yesterday, increasing to 2.28 from 1.89. His urine output has also decreased in the last 24 hours. Plan today is to consult nephrology for further recommendations regarding patients renal failure. Etiology is likely due to septic shock. Urinalysis obtained today is suggestive of possible UTI, with moderate amount of leukocyte esterase. Culture is obtained, and is currently pending. We will tailor antibiotic therapy accordingly. Objective PUL Vital signs: Last Vital Signs Temp 99.9 F H 01/22/19 08:00 Pulse 72 01/22/19 12:00 Resp 25 01/22/19 12:00 BP 110/53 01/22/19 12:00 Pulse Ox 90 01/22/19 12:00 General: Intubated, sedated; no acute distress noted Head: atraumatic, normocephalic; ET tube in place Eye: No scleral icterus Neck: Supple, trachea midline; No lymphadenopathy Respiratory: Diminished breath sounds bilaterally, bilateral rhonchi, no wheezing/rales Cardiovascular: RRR, +S1, +S2; no murmurs, rubs, gallops Abdomen: Soft, distended; Midline abdominal incision, colostomy bag in place Extremities: 1+ edema in upper and lower extremities; soft restraints in place on the upper extremities Neurological: Sedated; no response to stimuli Psychiatric: Unable to assess Skin: Dry, intact Ventilator Settings Ventilator Settings: Ventilator Settings, Last 8 Hours Ventilator Tidal Volume 500 Setting Ventilator Tidal Volume 500 Setting Ventilator Tidal Volume 500 Setting Ventilator Tidal Volume 500 Setting Ventilator Tidal Volume 500 Setting Ventilator Tidal Volume 500 Setting Ventilator Tidal Volume 500 Setting Ventilator Tidal Volume 500 Setting Ventilator Tidal Volume 500 Setting Ventilator Tidal Volume 500 Setting Ventilator Tidal Volume 500 Setting Ventilator Respiratory Rate 24 Setting Ventilator Respiratory Rate 24 Setting Ventilator Respiratory Rate 24 Setting Ventilator Respiratory Rate 24 Setting Ventilator Respiratory Rate 24 Setting Ventilator Respiratory Rate 24 Setting Ventilator Respiratory Rate 24 Setting Ventilator Respiratory Rate 24 Setting Ventilator Respiratory Rate 24 Setting Ventilator Respiratory Rate 24 Setting Actual Respiratory Rate 25 Actual Respiratory Rate 24 Actual Respiratory Rate 25 Actual Respiratory Rate 25 Actual Respiratory Rate 24 Actual Respiratory Rate 25 Actual Respiratory Rate 26 Actual Respiratory Rate 24 Actual Respiratory Rate 29 Actual Respiratory Rate 30 Actual Respiratory Rate 31 Positive End Expiratory 5 Pressure Positive End Expiratory 5 Pressure Positive End Expiratory 5 Pressure Positive End Expiratory 5 Pressure Positive End Expiratory 5 Pressure Positive End Expiratory 5 Pressure Positive End Expiratory 5 Pressure Positive End Expiratory 5 Pressure Positive End Expiratory 5 Pressure Positive End Expiratory 5 Pressure Positive End Expiratory 5 Pressure Peak Inspiratory Airway 29 Pressure Peak Inspiratory Airway 32 Pressure Peak Inspiratory Airway 29 Pressure Peak Inspiratory Airway 29 Pressure Peak Inspiratory Airway 30 Pressure Peak Inspiratory Airway 29 Pressure Peak Inspiratory Airway 28 Pressure Peak Inspiratory Airway 29 Pressure Peak Inspiratory Airway 21 Pressure Peak Inspiratory Airway 15 Pressure Peak Inspiratory Airway 27 Pressure Results - Laboratory Findings CBC and BMP: 01/22/19 10:27 01/22/19 03:53 ABG ABG pH 7.30 pH Units (7.32-7.45) L 01/22/19 04:54 ABG pCO2 43 mmHg (35-45) 01/22/19 04:54 ABG pO2 77 mmHg (85-104) L 01/22/19 04:54 ABG O2 Saturation 94 % (95-98) L 01/22/19 04:54 PT/INR, D-dimer PT 15.5 Seconds (9.4-12.1) H 01/14/19 17:30 Abnormal lab findings: Abnormal lab results WBC 14.9 K/mcL (4.3-11.1) H 01/21/19 04:00 RBC 2.59 M/mcL (4.19-5.50) L 01/22/19 10:27 Hgb 7.4 g/dL (12.9-16.9) L 01/22/19 10:27 Hct 24.2 % (37.5-50.1) L 01/22/19 10:27 MCH 27.8 pg (28.0-33.3) L 01/20/19 04:25 MCHC 30.6 g/dL (31.6-35.5) L 01/22/19 10:27 RDW 18.8 % (11.5-14.5) H 01/22/19 10:27 Plt Count 499 K/mcL (140-400) H 01/20/19 04:25 22.0 % (0-4) H 01/22/19 10:27 2.0 % (0) H 01/19/19 03:44 4.0 % (0) H 01/16/19 05:12 9.6 K/mcL (1.6-8.9) H 01/22/19 10:27 0.2 K/mcL (0.6-4.6) L 01/22/19 10:27 1.8 K/mcL (0.0-1.3) H 01/19/19 03:44 Nucleated RBCs/100 WBC 0.1 /100 WBC (0) H 01/18/19 05:40 Present (Not Present) A 01/21/19 04:00 Increased (Normal) H 01/20/19 04:25 Present (Not Present) A 01/13/19 04:00 1+ (Not Present) A 01/22/19 10:27 Present (Not Present) A 01/21/19 04:00 1+ (Not Present) A 01/22/19 10:27 Present (Not Present) A 01/13/19 04:00 1+ (Not Present) A 01/11/19 03:45 1+ (Not Present) A 01/11/19 03:45 ESR >= 130 mm/hr (0-10) H 01/17/19 04:20 PT 15.5 Seconds (9.4-12.1) H 01/14/19 17:30 APTT 23.2 Seconds (26.0-36.0) L D 01/14/19 17:30 Heparin Anti-Xa, Unfract 0.00 IU/mL (0.30-0.70) L 01/14/19 17:30 ABG pH 7.30 pH Units (7.32-7.45) L 01/22/19 04:54 ABG pCO2 48 mmHg (35-45) H 01/20/19 11:55 ABG pO2 77 mmHg (85-104) L 01/22/19 04:54 ABG HCO3 18 mEq/L (21-27) L 01/20/19 11:55 ABG Total CO2 19 mEq/L (20-26) L 01/20/19 11:55 ABG O2 Saturation 94 % (95-98) L 01/22/19 04:54 ABG Base Excess -5 mEq/L (-2 to 3) L 01/22/19 04:54 Sodium 131 mEq/L (136-145) L 01/21/19 14:00 Potassium 5.4 mEq/L (3.5-5.1) H 01/20/19 20:00 Chloride 110 mEq/L (98-107) H 01/21/19 04:00 Carbon Dioxide 21 mEq/L (23-29) L 01/22/19 03:53 BUN 57 mg/dL (8-23) H 01/22/19 03:53 2.28 mg/dL (0.70-1.30) H 01/22/19 03:53 Est GFR ( Amer) 34 (> 60) L 01/22/19 03:53 Est GFR (Non-Af Amer) 28 (> 60) L 01/22/19 03:53 28 (6-26) H 01/21/19 14:00 Glucose 161 mg/dL (70-105) H 01/22/19 03:53 POC Glucose 235 mg/dL (70-99) H 01/21/19 23:34 6.2 % (-5.6) H 01/07/19 08:46 305 (280-300) H 01/22/19 03:53 Lactic Acid 2.4 mmol/L (0.5-2.2) H 01/10/19 00:14 Calcium 8.2 mg/dL (8.6-10.3) L 01/21/19 14:00 Venous Ioniz Calcium 1.08 mmol/L (1.15-1.35) L 01/11/19 04:14 Phosphorus 5.7 mg/dL (2.7-4.5) H 01/22/19 03:53 Iron < 10 mcg/dL (65-175) L 01/18/19 05:40 98 mg/dL (203-362) L 01/18/19 05:40 AST 9 Units/L (13-39) L 01/12/19 11:21 23 Units/L (30-223) L 01/20/19 08:03 167 mg/L (Less than 10) H 01/17/19 04:20 B-Natriuretic Peptide 300 pg/mL (Less than 100) H 01/09/19 15:18 4.4 g/dL (6.4-8.9) L 01/12/19 11:21 3.0 g/dL (3.5-5.7) L 01/21/19 14:00 2.1 g/dL (2.4-3.5) L 01/12/19 11:21 11.5 mg/dL (17.0-34.0) L 01/17/19 04:20 Triglycerides 179 mg/dL (< 150) H 01/10/19 04:15 6 Units/L (11-82) L 01/07/19 08:46 2.14 ng/mL (0.00-0.15) H 01/16/19 16:09 Turbid (Clear) A 01/22/19 10:50 Ur Specific Casey 1.026 (1.010-1.025) H 01/22/19 10:50 >=300 mg/dL (Neg-Trace) H 01/22/19 10:50 Trace mg/dL (Negative) H 01/22/19 10:50 Large (Negative) H 01/22/19 10:50 Ur Leukocyte Esterase Moderate (Negative) H 01/22/19 10:50 3-5 per hpf (0-3) H 01/22/19 10:50 15-30 per hpf (0-3) H 01/22/19 10:50 Ur Squamous Epith Cells Many per lpf (None-Few) H 01/07/19 11:03 Amorphous Sediment Moderate (Few) H 01/22/19 10:50 Many per hpf (None-Few) H 01/07/19 11:03 Ur Culture Indicated? YES (NO) A 01/22/19 10:50 Fluid Appearance Cloudy (Clear) A 01/19/19 08:30 Positive (Negative) A 01/17/19 08:42 Crossmatch See Detail 01/17/19 12:25 - Microbiology Findings Microbiology Findings: Microbiology, Last 48 Hours 01/18/19 14:00 Anaerobic Culture - Preliminary Aspirate At this time, no anaerobic growth is present. The culture will be finalized after 5 days of incubation. 01/16/19 16:09 Blood Culture - Final Peripheral Venipuncture No growth. Final report. 01/16/19 16:09 Blood Culture - Final Peripheral Venipuncture No growth. Final report. 01/18/19 14:00 Wound Culture - Preliminary Abdomen Enterococcus faecalis Yeast Species 01/17/19 01:30 Wound Culture - Preliminary Abdomen Group G Streptococcus Enterococcus faecalis Yeast Species 01/17/19 01:30 Gram Stain - Final Abdomen 01/19/19 08:30 Acid Fast Stain - Final Right Middle Lobe Lung 01/19/19 08:30 Respiratory Culture - Preliminary Right Middle Lobe Lung 01/19/19 08:30 Fungal Culture - Preliminary Right Middle Lobe Lung Culture is incubating. - Clinical Findings Intake & Output: Intake & Output 01/21/19 01/22/19 01/22/19 23:59 07:59 15:59 Intake Total 1032.8 / 2952.8 470 / 570 100 / 570 Output Total 375 / 1780 500 / 500 Balance 657.8 / 1172.8 -30 / 70 100 / 70 Weight 101.8 kg 107.2 kg Consult Discharge Plan - Plan Referrals: Rodriguez,Ranjit Weston MD [Primary Care Provider] - <Zulma Deleon - Last Filed: 01/23/19 00:02> Date of Encounter: 01/22/19 Objective PUL Vital signs: Last Vital Signs Temp 96.8 F L 01/22/19 20:05 Pulse 60 01/22/19 23:30 Resp 27 01/22/19 23:42 BP 103/53 01/22/19 23:42 Pulse Ox 91 01/22/19 23:42 Ventilator Settings Ventilator Settings: Ventilator Settings, Last 8 Hours Ventilator Tidal Volume 500 Setting Ventilator Tidal Volume 500 Setting Ventilator Tidal Volume 500 Setting Ventilator Tidal Volume 500 Setting Ventilator Tidal Volume 500 Setting Ventilator Tidal Volume 500 Setting Ventilator Tidal Volume 500 Setting Ventilator Tidal Volume 500 Setting Ventilator Tidal Volume 500 Setting Ventilator Tidal Volume 500 Setting Ventilator Tidal Volume 500 Setting Ventilator Respiratory Rate 24 Setting Ventilator Respiratory Rate 24 Setting Ventilator Respiratory Rate 24 Setting Ventilator Respiratory Rate 24 Setting Ventilator Respiratory Rate 24 Setting Ventilator Respiratory Rate 24 Setting Ventilator Respiratory Rate 24 Setting Ventilator Respiratory Rate 24 Setting Ventilator Respiratory Rate 24 Setting Ventilator Respiratory Rate 24 Setting Ventilator Respiratory Rate 24 Setting Actual Respiratory Rate 28 Actual Respiratory Rate 24 Actual Respiratory Rate 24 Actual Respiratory Rate 24 Actual Respiratory Rate 24 Actual Respiratory Rate 24 Actual Respiratory Rate 24 Actual Respiratory Rate 24 Actual Respiratory Rate 24 Actual Respiratory Rate 24 Actual Respiratory Rate 25 Positive End Expiratory 5 Pressure Positive End Expiratory 5 Pressure Positive End Expiratory 5 Pressure Positive End Expiratory 5 Pressure Positive End Expiratory 5 Pressure Positive End Expiratory 5 Pressure Positive End Expiratory 5 Pressure Positive End Expiratory 5 Pressure Positive End Expiratory 5 Pressure Positive End Expiratory 5 Pressure Positive End Expiratory 5 Pressure Peak Inspiratory Airway 30 Pressure Peak Inspiratory Airway 26 Pressure Peak Inspiratory Airway 19 Pressure Peak Inspiratory Airway 30 Pressure Peak Inspiratory Airway 26 Pressure Peak Inspiratory Airway 30 Pressure Peak Inspiratory Airway 31 Pressure Peak Inspiratory Airway 31 Pressure Peak Inspiratory Airway 31 Pressure Peak Inspiratory Airway 31 Pressure Peak Inspiratory Airway 29 Pressure Results - Laboratory Findings CBC and BMP: 01/22/19 10:27 01/22/19 03:53 ABG ABG pH 7.30 pH Units (7.32-7.45) L 01/22/19 04:54 ABG pCO2 43 mmHg (35-45) 01/22/19 04:54 ABG pO2 77 mmHg (85-104) L 01/22/19 04:54 ABG O2 Saturation 94 % (95-98) L 01/22/19 04:54 PT/INR, D-dimer PT 15.5 Seconds (9.4-12.1) H 01/14/19 17:30 Abnormal lab findings: Abnormal lab results WBC 14.9 K/mcL (4.3-11.1) H 01/21/19 04:00 RBC 2.59 M/mcL (4.19-5.50) L 01/22/19 10:27 Hgb 7.4 g/dL (12.9-16.9) L 01/22/19 10:27 Hct 24.2 % (37.5-50.1) L 01/22/19 10:27 MCH 27.8 pg (28.0-33.3) L 01/20/19 04:25 MCHC 30.6 g/dL (31.6-35.5) L 01/22/19 10:27 RDW 18.8 % (11.5-14.5) H 01/22/19 10:27 Plt Count 499 K/mcL (140-400) H 01/20/19 04:25 22.0 % (0-4) H 01/22/19 10:27 2.0 % (0) H 01/19/19 03:44 4.0 % (0) H 01/16/19 05:12 9.6 K/mcL (1.6-8.9) H 01/22/19 10:27 0.2 K/mcL (0.6-4.6) L 01/22/19 10:27 1.8 K/mcL (0.0-1.3) H 01/19/19 03:44 Nucleated RBCs/100 WBC 0.1 /100 WBC (0) H 01/18/19 05:40 Present (Not Present) A 01/21/19 04:00 Increased (Normal) H 01/20/19 04:25 Present (Not Present) A 01/13/19 04:00 1+ (Not Present) A 01/22/19 10:27 Present (Not Present) A 01/21/19 04:00 1+ (Not Present) A 01/22/19 10:27 Present (Not Present) A 01/13/19 04:00 1+ (Not Present) A 01/11/19 03:45 1+ (Not Present) A 01/11/19 03:45 ESR >= 130 mm/hr (0-10) H 01/17/19 04:20 PT 15.5 Seconds (9.4-12.1) H 01/14/19 17:30 APTT 23.2 Seconds (26.0-36.0) L D 01/14/19 17:30 Heparin Anti-Xa, Unfract 0.00 IU/mL (0.30-0.70) L 01/14/19 17:30 ABG pH 7.30 pH Units (7.32-7.45) L 01/22/19 04:54 ABG pCO2 48 mmHg (35-45) H 01/20/19 11:55 ABG pO2 77 mmHg (85-104) L 01/22/19 04:54 ABG HCO3 18 mEq/L (21-27) L 01/20/19 11:55 ABG Total CO2 19 mEq/L (20-26) L 01/20/19 11:55 ABG O2 Saturation 94 % (95-98) L 01/22/19 04:54 ABG Base Excess -5 mEq/L (-2 to 3) L 01/22/19 04:54 Sodium 131 mEq/L (136-145) L 01/21/19 14:00 Potassium 5.4 mEq/L (3.5-5.1) H 01/20/19 20:00 Chloride 110 mEq/L (98-107) H 01/21/19 04:00 Carbon Dioxide 21 mEq/L (23-29) L 01/22/19 03:53 BUN 57 mg/dL (8-23) H 01/22/19 03:53 2.28 mg/dL (0.70-1.30) H 01/22/19 03:53 Est GFR ( Amer) 34 (> 60) L 01/22/19 03:53 Est GFR (Non-Af Amer) 28 (> 60) L 01/22/19 03:53 28 (6-26) H 01/21/19 14:00 Glucose 161 mg/dL (70-105) H 01/22/19 03:53 POC Glucose 235 mg/dL (70-99) H 01/21/19 23:34 6.2 % (-5.6) H 01/07/19 08:46 305 (280-300) H 01/22/19 03:53 Lactic Acid 2.4 mmol/L (0.5-2.2) H 01/10/19 00:14 Calcium 8.2 mg/dL (8.6-10.3) L 01/21/19 14:00 Venous Ioniz Calcium 1.08 mmol/L (1.15-1.35) L 01/11/19 04:14 Phosphorus 5.7 mg/dL (2.7-4.5) H 01/22/19 03:53 Iron < 10 mcg/dL (65-175) L 01/18/19 05:40 98 mg/dL (203-362) L 01/18/19 05:40 AST 9 Units/L (13-39) L 01/12/19 11:21 23 Units/L (30-223) L 01/20/19 08:03 167 mg/L (Less than 10) H 01/17/19 04:20 B-Natriuretic Peptide 300 pg/mL (Less than 100) H 01/09/19 15:18 4.4 g/dL (6.4-8.9) L 01/12/19 11:21 3.0 g/dL (3.5-5.7) L 01/21/19 14:00 2.1 g/dL (2.4-3.5) L 01/12/19 11:21 11.5 mg/dL (17.0-34.0) L 01/17/19 04:20 Triglycerides 179 mg/dL (< 150) H 01/10/19 04:15 6 Units/L (11-82) L 01/07/19 08:46 2.14 ng/mL (0.00-0.15) H 01/16/19 16:09 Turbid (Clear) A 01/22/19 10:50 Ur Specific Casey 1.026 (1.010-1.025) H 01/22/19 10:50 >=300 mg/dL (Neg-Trace) H 01/22/19 10:50 Trace mg/dL (Negative) H 01/22/19 10:50 Large (Negative) H 01/22/19 10:50 Ur Leukocyte Esterase Moderate (Negative) H 01/22/19 10:50 3-5 per hpf (0-3) H 01/22/19 10:50 15-30 per hpf (0-3) H 01/22/19 10:50 Ur Squamous Epith Cells Many per lpf (None-Few) H 01/07/19 11:03 Amorphous Sediment Moderate (Few) H 01/22/19 10:50 Many per hpf (None-Few) H 01/07/19 11:03 Ur Culture Indicated? YES (NO) A 01/22/19 10:50 Fluid Appearance Cloudy (Clear) A 01/19/19 08:30 Positive (Negative) A 01/17/19 08:42 Vancomycin Trough 28 mcg/mL (5-10) H 01/22/19 12:47 Crossmatch See Detail 01/17/19 12:25 - Microbiology Findings Microbiology Findings: Microbiology, Last 48 Hours 01/22/19 10:50 Urine Culture - Preliminary Urine,Clean Catch Culture is incubating. 01/17/19 01:30 Wound Culture - Preliminary Abdomen Group G Streptococcus Enterococcus faecalis Yeast Species 01/18/19 14:00 Anaerobic Culture - Preliminary Aspirate At this time, no anaerobic growth is present. The culture will be finalized after 5 days of incubation. 01/16/19 16:09 Blood Culture - Final Peripheral Venipuncture No growth. Final report. 01/16/19 16:09 Blood Culture - Final Peripheral Venipuncture No growth. Final report. 01/18/19 14:00 Wound Culture - Preliminary Abdomen Enterococcus faecalis Yeast Species 01/17/19 01:30 Gram Stain - Final Abdomen - Clinical Findings Intake & Output: Intake & Output 01/22/19 01/22/19 01/22/19 07:59 15:59 23:59 Intake Total 470 / 2048 350 / 2048 1228 / 2048 Output Total 500 / 720 120 / 720 100 / 720 Balance -30 / 1328 230 / 1328 1128 / 1328 Weight 107.2 kg - Attending Attestation I saw and evaluated this patient and my medical decision-making was reviewed with the Resident Physician. I agree with the documented findings, disposition and treatment plan as described except to the extent set forth below. We independently had [id number] contact with the patient I spent 50 minutes of Critical Care time with this patient. It involved decision making of high complexity to assess, manipulate, and support vital organ system failure and/or to prevent further life threatening deterioration of the patient's condition. The time involved in the performance of separately reportable procedures was not counted toward critical care time. Patient seen and examined at bedside Labs, radiology, chart personally reviewed. Management was reviewed during multidisciplinary critical care rounds. ARCHITECTURE ANALYST: Patient is encephalopathy most likely secondary to toxic/metabolic encephalopathy patient is not following command on my exam. Pulm: Patient has acceptable oxygenation and ventilation to bring down FiO2 to keep saturation between 90-92%. Temperature is complicated by possible pneumonia and hydrostatic pulmonary edema , diuresis if hemodynamically tolerated Cards: Patient is a septic shock complicated by pneumonia now worsening acute kidney injury patient is almost 16-17 L positive for stay FEN-GI: To continue dietary according to nutrition. To continue IV PPI. Renal: Patient has worsening acute kidney injury 16-17 litres of positive fluid balance consulted nephrology looks like sepsis induced acute kidney injury ID: To the broad-spectrum antibiotics to de-escalate antibiotics according to the clinical response. Patient is septic shock most likely due to pneumonia. Heme/Onc: Labs reviewed Endo: Glucose Monitored Integ/MSK: Skin Care per routine ICU Nursing Protocol to prevent ulcers. Lines: All lines examined without evidence of infection : Dispo: critically ill CODE:full code
--- NOTE | 2019-01-22 15:26 | ENT - Progress Note ---
Date of Encounter: 01/22/19 Time of Encounter: 12:30 - Assessment and Plan (1) Acute respiratory failure with hypoxia Current Visit: Yes Status: Acute Patient currently intubated and on ventilator- Management per primary care team. Unable to visualize airway due to current intubation. May contact ENT after patient is extubated for further evaluation with nasolaryngoscopy. (2) Aspiration into airway Current Visit: Yes Status: Acute Recommend evaluation of airway after patient is extubated with nasolaryngoscopy. Qualifiers: Encounter type: initial encounter Qualified Code(s): T17.908A - Unspecified foreign body in respiratory tract, part unspecified causing other injury, initial encounter Subjective Patient reports: other (unable to obtain, patient is currently intubated at this time) Objective Initial Vital Signs Temp Pulse Resp BP Pulse Ox 97.5 F L 60 16 147/77 97 01/07/19 08:12 01/07/19 08:12 01/07/19 08:12 01/07/19 08:12 01/07/19 08:12 - General physical appearance no distress - ENT Other (Oral: Mucosa moist, no visualized oral debris, no oral lesions or ulcers visualized, unable to visualize oropharynx well due to intubation tube, uable to assess tongue mobility, etc. due to intubation/sedation. ) - Labs 01/22/19 10:27 01/22/19 03:53 Diabetes panel 01/22/19 Range/Units 03:53 Sodium 138 (136-145) mEq/L Potassium 4.8 (3.5-5.1) mEq/L Chloride 107 (98-107) mEq/L Carbon Dioxide 21 L (23-29) mEq/L BUN 57 H (8-23) mg/dL Creatinine 2.28 H (0.70-1.30) mg/dL Glucose 161 H (70-105) mg/dL Calcium 8.6 (8.6-10.3) mg/dL Calcium panel 01/22/19 Range/Units 03:53 Calcium 8.6 (8.6-10.3) mg/dL Phosphorus 5.7 H (2.7-4.5) mg/dL Pituitary panel 01/22/19 Range/Units 03:53 Sodium 138 (136-145) mEq/L Potassium 4.8 (3.5-5.1) mEq/L Chloride 107 (98-107) mEq/L Carbon Dioxide 21 L (23-29) mEq/L BUN 57 H (8-23) mg/dL Creatinine 2.28 H (0.70-1.30) mg/dL Glucose 161 H (70-105) mg/dL Calcium 8.6 (8.6-10.3) mg/dL Adrenal panel 01/22/19 Range/Units 03:53 Sodium 138 (136-145) mEq/L Potassium 4.8 (3.5-5.1) mEq/L Chloride 107 (98-107) mEq/L Carbon Dioxide 21 L (23-29) mEq/L BUN 57 H (8-23) mg/dL Creatinine 2.28 H (0.70-1.30) mg/dL Glucose 161 H (70-105) mg/dL Calcium 8.6 (8.6-10.3) mg/dL Consult Discharge Plan - Plan Referrals: Ranjit Rodriguez MD [Primary Care Provider] -
[2019-01-22] MEDS ORDERED: Clinimix 5%-20% SOLUTION 2,000 ML with MVI, adult with vitamin K 10 ML, Trace Element... IVC SCH (17:00)
[2019-01-22] MEDS: Albumin 25% 25gram/100mL 25 GM/100 ML IV.SOLN IVPB SCH (17:13)
[2019-01-22] MEDS: *HR* Heparin 5,000 UNIT/ML VIAL SQ SCH ×2 (17:34→23:54)
[2019-01-22] MEDS: Clinimix 5%-20% SOLUTION 2,000 ML with MVI, adult with vitamin K 10 ML, Calcium Gluco... IVC SCH (17:34)
--- NOTE | 2019-01-22 18:09 | Infectious Disease Progress No ---
ID Progress Note Date of Encounter: 01/22/19 Time of Encounter: 10:10 - Subjective Subjective: The patient is intubated and sedated at time of examination. He is not responsive to verbal or physical stimuli. According to the patient's nursing staff he had no acute complaints overnight. At this time he remains afebrile, however he does have hypotension with a map of 54 at the time of examination. He is being restarted on levofed in order to maintain blood pressure. - Objective CBC & Chem 7: 01/23/19 04:51 01/23/19 04:51 - Line Documentation Line Documentation: PICC Line (Right upper extremity) - Exam Vitals: Temp Pulse Resp BP Pulse Ox 97.3 F L 65 24 133/59 89 01/22/19 15:00 01/22/19 17:00 01/22/19 17:00 01/22/19 17:00 01/22/19 17:00 Exam: Gen: Vitals noted. Sedated and intubated. Eyes: anicteric sclerae, moist conjunctivae HENT: Atraumatic; oropharynx clear, ET tube in place, no maceration is noted around tube. There are copious oral secretions Neck: Trachea midline; supple, no thyromegaly or lymphadenopathy Cardiac: RRR, +S1/S2 present, no murmurs, rubs or gallops Pulmonary: Scattered wheezes heard throughout however significantly more so on the right than the left. No rhonchi noted rales Abdomen: soft, No HSM. There is dressing in place over the site of prior operation. PEG in place with surrounding dressing. FARIDA in place x2 with brown fluid return. MSK: ROM intact, no joint swelling noted Extremities: 2+ BLE edema, nontender calf, no cyanosis or clubbing Skin: Normal temperature, turgor and texture; no rash, ulcers or subcutaneous nodules Neuro: Sedated, ventilated. - Assessment and Plan (1) Sepsis Current Visit: Yes Status: Acute The patient had three SIRS criteria. Likely secondary to intra-abdominal fluid collections and possible aspiration PNA. WBC continues to trend up, Recurrent bandemia with Fever and tachycardia Blood cultures drawn 01/09/19 are negative x 2 sets. Repeat blood cultures drawn 01/11/19 are NGTD x [address] Chest 01/16 shows bilateral pleural effusions with associated dependent upper and lower lobe airspace disease including consolidation, atelectasis and/or pna CT Abd/pelv 01/16 small peritoneal air possibly post-surgical, mild small bowel loops, gas within the nondependent urinary bladder which may relate due to recent instrumentation Cultures 01/18/19 wound culture positive for Enterococcus faecalis and yeast species, sensitivities pending 01/17/19 wound culture positive for Group G strep, Enterococcus faecalis and yeast species, sensitivities pending Antibiotics Cefepime 2g q12h Clindamycin 600mg IV q8h Vancomycin Per pharmacy Micafungin 100mg IV daily Recommendations -Group G strep adequately covered with 4th Gen cephalosporin and Vancomycin -Will stop Vancomycin, Micafungin -Start Zyvox IV and Fluconazole -Cultures continue to be pending -Management of vent per pulmonology Qualifiers: Sepsis type: Streptococcus, other Qualified Code(s): A40.8 - Other streptococcal sepsis SNOMED Code(s): 08233127 (2) Pneumonia Current Visit: Yes Status: Acute Pneumonia secondary to aspiration CT abdomen and pelvis 01/20/19 shows new extensive right lower airspace pneumonia Patient has been septic with worsening bandemia and worsening respiratory failure According to nursing staff also has purulent secretion from Vent Continue antibiotic treatment as above Qualifiers: Pneumonia type: aspiration pneumonia Aspiration pneumonia type: due to vomit Laterality: unspecified laterality Lung location: unspecified part of lung Qualified Code(s): J69.0 - Pneumonitis due to inhalation of food and vomit SNOMED Code(s): 987303562 (3) Colostomy dysfunction Current Visit: Yes Status: Resolved Likely secondary to stenosis at colostomy site. Status post MARCY, unavoidable enterotomies, takedown colostomy and left colon resection, transverse colostomy, and SBR with primary anastamosis, and gastrostomy tube placement 01/08/[address] Cerda. Surgical site with foul-smelling drainage and wound dehiscence. Wound culture positive for GGS, Enterococcus faecalis, yeast Transitioning to Zyvox, fluconazole, cefepime, clindamycin SNOMED Code(s): 91869218 (4) Acute kidney injury superimposed on CKD Current Visit: Yes Status: Acute TONO on CKD3. Patient presented with elevated serum creatinine which worsened during stay. Creatinine continues to trend upward, will Dose-adjust medications and avoid nephrotoxins as able. Stop vancomycin, switch to Zyvox SNOMED Code(s): 43097709 (5) Dysphagia Current Visit: Yes Status: Acute Dysphagia, patient has failed modified barium swallow. Unknown cause of patient's dysphagia at this time. CT Soft tissue neck was unrevealing for cause. Further workup and treatment per the primary team and ENT Qualifiers: Dysphagia type: oropharyngeal phase Qualified Code(s): R13.12 - Dysphagia, oropharyngeal phase SNOMED Code(s): 63858415, 398839192 (6) Abdominal pain Current Visit: Yes Status: Acute Abdominal pain, secondary to colostomy dysfunction initially, but now concern for intra-abdominal abscess. 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 I agree with the documented findings, disposition and treatment plan as described except to the extent set forth below. Assessment and plan: 1.Sepsis likely due to aspiration pneumonia plus intra abodminal process 2.Colostomy dysfunction 3.Dysphagia 4.Confusion 5.Encephalopathy 6.abdominal abscess: cultures positive for GGS, AmpS E faecalis and C albicans 7.Concern for aspiration pneumonia 8.Diabetes mellitus type 2 9.Atrial fibrillation 10.Acute kidney injury Recommendations: continue cefepime dose adjust based on CrCl continue clindamycin for aspiration d/c micafungin and vanco start zyvox and fluconazole duration of treatment depens on clinical picture
[2019-01-22] MEDS: Fluconazole 400 MG/200 ML 400 MG/200 ML BAG IVPB SCH ×2 (18:50→20:55)
[2019-01-22] MEDS: Latanoprost 2.5 ML BOTTLE RIGHT EYE SCH (20:22)
[2019-01-22] MEDS: Insulin DETEMIR 100 UNIT/ML X5UNITS SQ SCH (20:28)
[2019-01-23] MEDS: FentaNYL (PF) 1,000 MCG in 0.9 % Sodium Chloride 80 ML IVC SCH ×3 (02:25→23:11)
[2019-01-23] MEDS: Artificial Tears SOLN 15 ML BOTTLE BOTH EYES SCH ×6 (03:51→23:02)
[2019-01-23] MEDS: Insulin LISPRO 300 UNITS/3 ML VIAL SQ SCH ×6 (03:56→23:08)
[2019-01-23] MEDS: Ipratropium/Albuterol Neb 3 ML IH SCH ×6 (04:00→23:53)
[2019-01-23] MEDS: Dexmedetomidine HCl 400 MCG/100 ML MLS IVC SCH ×4 (05:05→21:35)
[2019-01-23 05:10] LABS: Hematocrit 26.2 % (37.5-50.1); Hemoglobin 7.9 g/dL (12.9-16.9); Mean Corpuscular HGB Conc 30.2 g/dL (31.6-35.5); Mean Corpuscular Hemoglobin 27.9 pg (28.0-33.3); Mean Corpuscular Volume 92.6 fL (83.0-100.0); Mean Platelet Volume 11.3 fL (9.4-12.4); Platelet Count 330 K/mcL (140-400); Red Blood Count 2.83 M/mcL (4.19-5.50); Red Cell Distribution Width 18.5 % (11.5-14.5); White Blood Count 11.1 K/mcL (4.3-11.1)
[2019-01-23 05:30] LABS: ABG Base Excess -9 mEq/L (-2 to 3); ABG HCO3 18 mEq/L (21-27); ABG Oxygen Saturation 83 % (95-98); ABG PCO2 46 mmHg (35-45); ABG PH 7.21 pH Units (7.32-7.45); ABG PO2 57 mmHg (85-104); ABG TCO2 20 mEq/L (20-26); Blood Gas Modality VC; Blood Gas PEEP 5 cm H2O; Blood Gas VT 500 cc
[2019-01-23 05:31] LABS: Calcium 8.6 mg/dL (8.6-10.3); Magnesium 2.3 mg/dL (1.6-2.6); Phosphorous 5.5 mg/dL (2.7-4.5); Potassium 3.9 mEq/L (3.5-5.1)
[2019-01-23 05:52] LABS: Anisocytosis 1+ (Not Present); Lymphocytes # 1.1 K/mcL (0.6-4.6); Monocytes # 0.4 K/mcL (0.0-1.3); Neutrophils # 9.3 K/mcL (1.6-8.9)
[2019-01-23 05:53] LABS: Hypochromasia Present (Not Present); Platelet Estimate Normal (Normal); Polychromasia 1+ (Not Present)
[2019-01-23] MEDS: Cefepime HCl 2,000 MG in Water for inj. (sterile) 20 ML IVP SCH ×2 (05:57→17:55)
[2019-01-23] MEDS: Insulin DETEMIR 100 UNIT/ML X5UNITS SQ SCH ×2 (08:32→19:44)
[2019-01-23] MEDS: Chlorhexidine Rinse 15 ML MOUTHWASH MM SCH ×2 (08:32→19:39)
[2019-01-23] MEDS: Clindamycin 600 MG/50 ML 600 MG/50 ML IV.SOLN IVPB SCH ×3 (08:32→23:02)
[2019-01-23] MEDS: Fluconazole 400 MG/200 ML 400 MG/200 ML BAG IVPB SCH (08:32)
[2019-01-23] MEDS: Pantoprazole 40 MG VIAL IVP SCH (08:33)
[2019-01-23] MEDS: *HR* Heparin 5,000 UNIT/ML VIAL SQ SCH ×3 (08:33→23:02)
[2019-01-23] MEDS: *HR* Amiodarone 200 MG TABLET PO SCH (08:35)
[2019-01-23] MEDS: Dorzolamide/Timolol 1 DROP RIGHT EYE SCH ×2 (08:35→19:39)
--- NOTE | 2019-01-23 09:35 | Infectious Disease Progress No ---
ID Progress Note Date of Encounter: 01/23/19 Time of Encounter: 10:35 - Subjective Subjective: The patient is intubated and sedated at time of examination. He is not responsive to verbal or physical stimuli. According to the patient's nursing staff he had no acute complaints overnight. At this time he remains afebrile, however he does have hypotension with a map of 54 at the time of examination. He is being restarted on levofed in order to maintain blood pressure. - Objective CBC & Chem 7: 01/23/19 04:51 01/23/19 04:51 - Line Documentation Line Documentation: PICC Line (Right upper extremity) - Exam Vitals: Temp Pulse Resp BP Pulse Ox 97.5 F L 65 26 114/52 93 01/23/19 07:18 01/23/19 08:00 01/23/19 08:00 01/23/19 08:00 01/23/19 08:00 Exam: Gen: Vitals noted. Sedated and intubated. Eyes: anicteric sclerae, moist conjunctivae HENT: Atraumatic; oropharynx clear, ET tube in place, no maceration is noted around tube. There are copious oral secretions Neck: Trachea midline; supple, no thyromegaly or lymphadenopathy Cardiac: RRR, +S1/S2 present, no murmurs, rubs or gallops Pulmonary: Significant rhonchi and wheezing noted throughout both lungs Abdomen: soft, No HSM. There is dressing in place over the site of prior operation. PEG in place with surrounding dressing. FARIDA in place x2 with brown fluid return. MSK: ROM intact, no joint swelling noted Extremities: 3+ BLE edema, nontender calf, no cyanosis or clubbing Skin: Normal temperature, turgor and texture; no rash, ulcers or subcutaneous nodules Neuro: Sedated, ventilated. - Assessment and Plan (1) Sepsis Current Visit: Yes Status: Acute The patient had three SIRS criteria. Likely secondary to intra-abdominal fluid collections and possible aspiration PNA. WBC continues to trend up, Recurrent bandemia with Fever and tachycardia Blood cultures drawn 01/09/19 are negative x 2 sets. Repeat blood cultures drawn 01/11/19 are NGTD x [address] Chest 01/16 shows bilateral pleural effusions with associated dependent upper and lower lobe airspace disease including consolidation, atelectasis and/or pna CT Abd/pelv 01/16 small peritoneal air possibly post-surgical, mild small bowel loops, gas within the nondependent urinary bladder which may relate due to recent instrumentation Cultures 01/18/19 wound culture positive for Enterococcus faecalis and yeast species 01/17/19 wound culture positive for Group G strep, Enterococcus faecalis and yeast species Antibiotics Cefepime 2g q12h Clindamycin 600mg IV q8h Zyvox 600mg IV q12h Diflucan 400mg IV Daily Recommendations -Continue current antibiotic regimen, duration of treatment depends on clinical course -Management of vent per pulmonology Qualifiers: Sepsis type: Streptococcus, other Qualified Code(s): A40.8 - Other streptococcal sepsis SNOMED Code(s): 47970735 (2) Pneumonia Current Visit: Yes Status: Acute Pneumonia secondary to aspiration CT abdomen and pelvis 01/20/19 shows new extensive right lower airspace pneumonia Patient has been septic with worsening bandemia and worsening respiratory failure According to nursing staff also has purulent secretion from Vent Continue antibiotic treatment as above Qualifiers: Pneumonia type: aspiration pneumonia Aspiration pneumonia type: due to vomit Laterality: unspecified laterality Lung location: unspecified part of lung Qualified Code(s): J69.0 - Pneumonitis due to inhalation of food and vomit SNOMED Code(s): 953156776 (3) Colostomy dysfunction Current Visit: Yes Status: Resolved Likely secondary to stenosis at colostomy site. Status post MARCY, unavoidable enterotomies, takedown colostomy and left colon resection, transverse colostomy, and SBR with primary anastamosis, and gastrostomy tube placement 01/08/[address] Cerda. Surgical site with foul-smelling drainage and wound dehiscence. Wound culture positive for GGS, Enterococcus faecalis, yeast Transitioning to Zyvox, fluconazole, cefepime, clindamycin SNOMED Code(s): 00533619 (4) Acute kidney injury superimposed on CKD Current Visit: Yes Status: Acute TONO on CKD3. Patient presented with elevated serum creatinine which worsened during stay. Creatinine continues to trend upward, will Dose-adjust medications and avoid nephrotoxins as able. SNOMED Code(s): 69156834 (5) Dysphagia Current Visit: Yes Status: Acute Dysphagia, patient has failed modified barium swallow. Unknown cause of patient's dysphagia at this time. CT Soft tissue neck was unrevealing for cause. Further workup and treatment per the primary team and ENT Qualifiers: Dysphagia type: oropharyngeal phase Qualified Code(s): R13.12 - Dysphagia, oropharyngeal phase SNOMED Code(s): 45612872, 629483082 (6) Abdominal pain Current Visit: Yes Status: Acute Abdominal pain, secondary to colostomy dysfunction initially, but now concern for intra-abdominal abscess. Management per primary team and acute care surgery Qualifiers: Abdominal location: generalized Qualified Code(s): R10.84 - Generalized abdominal pain SNOMED Code(s): 68251900 (7) Atrial fibrillation Current Visit: Yes Status: Chronic Management per primary team Qualifiers: Atrial fibrillation type: paroxysmal Qualified Code(s): I48.0 - Paroxysmal atrial fibrillation SNOMED Code(s): 81729382 (8) Diabetes Current Visit: Yes Status: Acute Per primary team Qualifiers: Diabetes mellitus type: type 2 Diabetes mellitus group home insulin use: without group home use Diabetes mellitus complication status: without complication Qualified Code(s): E11.9 - Type 2 diabetes mellitus without complications SNOMED Code(s): 82786572 (9) Hydronephrosis, left Current Visit: No Status: Chronic SNOMED Code(s): 22526302 Consult Discharge Plan - Plan Referrals: Ranjit Rodriguez MD [Primary Care Provider] - - Attending Attestation I examined this patient and my medical decision-making was reviewed with the Resident Physician. I agree with the documented findings, disposition and treatment plan as described except to the extent set forth below. Assessment and plan: 1.Sepsis likely due to aspiration pneumonia plus intra abodminal process 2.Colostomy dysfunction 3.Dysphagia 4.Confusion 5.Encephalopathy 6.abdominal abscess: cultures positive for GGS, AmpS E faecalis and C albicans 7.Concern for aspiration pneumonia 8.Diabetes mellitus type 2 9.Atrial fibrillation 10.Acute kidney injury Recommendations: continue cefepime dose adjust based on CrCl continue clindamycin for aspiration d/c micafungin and vanco start zyvox and fluconazole duration of treatment depens on clinical picture
[2019-01-23] MEDS ORDERED: Insulin DETEMIR 100 UNIT/ML X5UNITS SQ ONE (11:23)
--- NOTE | 2019-01-23 11:26 | Pulmonology Progress Note ---
<Edin Tate - Last Filed: 01/23/19 16:32> Date of Encounter: 01/23/19 Time of Encounter: 16:22 Assessment and Plan (1) Acute respiratory failure with hypoxia Current Visit: Yes Status: Acute - On 01/19: Patient developed respiratory failure with hypoxia, likely secondary to foreign body aspiration - This required intubation with mechanical ventilation - Vent settings: Respiratory rate 24, inspired O2 70%, tidal volume 500, PEEP 5 Plan: - Continues to remain intubated and sedated; not a candidate for spontaneous breathing trial at this time due to level of sedation and vent requirements - Continue sedation with propofol, fentanyl, precedex - Vent bundle in place - Repeat ABG in the a.m. (2) Sepsis Current Visit: Yes Status: Acute - Patients stay in the ICU has been complicated by septic shock - Potential infection sources include PNA, intra-abdominal fluid collection, abdominal wound - White count has slightly increased from 10.0-11.1 - CT chest 01/16: Bilateral pleural effusions with associated dependent upper and lower airspace disease including consolidation, possibly representing PNA - Abdominal wound culture 01/17/19: Group B strep, enterococcus faecalis, yeast species - Abdominal wound culture 01/18/19: Enterococcus faecalis, yeast species - Final sensitivity report for wound cultures are pending - Blood cultures have shown no growth to date - Infectious disease is following Plan: - Continue Zyvox, cefepime, clindamycin, fluconazole - Awaiting final sensitivities for abdominal wound cultures; we will tailor antibiotic therapy accordingly - Repeat a.m. labs Qualifiers: Qualified Code(s): A41.9 - Sepsis, unspecified organism (3) Acute kidney injury Current Visit: Yes Status: Acute - Etiology unknown; likely multifactorial in the setting of sepsis and nephrotoxic medications - Creatinine has increased to 2.99 from 2.28 - Urine output remains low - Due to patients volume overload status and worsening renal function, he will likely need dialysis - Interventional radiology has been consulted for placement of an HD catheter - Nephrology following (4) Pneumonia Current Visit: Yes Status: Acute - Causative organism is unknown - CXR from 01/18 demonstrates left retrocardiac opacity favoring focal airspace disease - Infectious disease is following; antibiotics as noted above Qualifiers: Pneumonia type: aspiration pneumonia Aspiration pneumonia type: due to vomit Laterality: unspecified laterality Lung location: unspecified part of lung Qualified Code(s): J69.0 - Pneumonitis due to inhalation of food and vomit (5) Colon obstruction Current Visit: Yes Status: Acute - S/P laparotomy with lysis of adhesions, unavoidable enterotomy, takedown colostomy, L: Resection, transverse colostomy, small bowel resection with primary anastomosis - S/P CT guided abdominal abscess drainage with drains placed - Surgery following; continue wound care (6) Hydronephrosis Current Visit: Yes Status: Acute - Chronic, has payton catheter Qualifiers: Qualified Code(s): N13.30 - Unspecified hydronephrosis (7) Diabetes Current Visit: Yes Status: Acute - Continue insulin Qualifiers: Qualified Code(s): E11.9 - Type 2 diabetes mellitus without complications Subjective Principal diagnosis: Postop colectomy and colostomy Interval history: Patient was seen and examined at bedside this morning. He is currently intubated and sedation. No acute distress at this time. His white count is slightly increased from 10.0-11.1. Creatinine continues to worsen, increasing to 2.99 from 2.28. On review of cumulative intake and output, patient has a fluid balance of + [address]694.30 mL. Due to worsening renal function with volume overload, patient will likely need dialysis. Interventional radiology has been consulted for the placement of H she. Nephrology is following. Overall prognosis remains guarded. He is currently receiving broad-spectrum antibiotics for the treatment of pneumonia and possible intra-abdominal process. He is on linezolid, cefepime, fluconazole, and clindamycin. Infectious disease is following. Objective PUL Vital signs: Last Vital Signs Temp 96.1 F L 01/23/19 11:08 Pulse 64 01/23/19 09:00 Resp 26 01/23/19 09:35 BP 110/54 01/23/19 09:35 Pulse Ox 92 01/23/19 09:35 General: Intubated, sedated; no acute distress noted Head: atraumatic, normocephalic; ET tube in place Eye: No scleral icterus Neck: Supple, trachea midline; No lymphadenopathy Respiratory: Diminished breath sounds bilaterally, bilateral rhonchi, no wheezing/rales Cardiovascular: RRR, +S1, +S2; no murmurs, rubs, gallops Abdomen: Soft, distended; Midline abdominal incision, colostomy bag in place Extremities: 1+ edema in upper and lower extremities; soft restraints in place on the upper extremities Neurological: Sedated; no response to stimuli Psychiatric: Unable to assess Skin: Dry, intact Ventilator Settings Ventilator Settings: Ventilator Settings, Last 8 Hours Ventilator Tidal Volume 500 Setting Ventilator Tidal Volume 500 Setting Ventilator Tidal Volume 500 Setting Ventilator Tidal Volume 500 Setting Ventilator Tidal Volume 500 Setting Ventilator Tidal Volume 500 Setting Ventilator Tidal Volume 500 Setting Ventilator Tidal Volume 500 Setting Ventilator Tidal Volume 500 Setting Ventilator Tidal Volume 500 Setting Ventilator Respiratory Rate 24 Setting Ventilator Respiratory Rate 24 Setting Ventilator Respiratory Rate 24 Setting Ventilator Respiratory Rate 24 Setting Ventilator Respiratory Rate 24 Setting Ventilator Respiratory Rate 24 Setting Ventilator Respiratory Rate 24 Setting Ventilator Respiratory Rate 24 Setting Ventilator Respiratory Rate 24 Setting Ventilator Respiratory Rate 24 Setting Actual Respiratory Rate 26 Actual Respiratory Rate 24 Actual Respiratory Rate 26 Actual Respiratory Rate 28 Actual Respiratory Rate 26 Actual Respiratory Rate 28 Actual Respiratory Rate 26 Actual Respiratory Rate 24 Actual Respiratory Rate 24 Actual Respiratory Rate 24 Positive End Expiratory 5 Pressure Positive End Expiratory 5 Pressure Positive End Expiratory 5 Pressure Positive End Expiratory 5 Pressure Positive End Expiratory 5 Pressure Positive End Expiratory 5 Pressure Positive End Expiratory 5 Pressure Positive End Expiratory 5 Pressure Positive End Expiratory 5 Pressure Positive End Expiratory 5 Pressure Peak Inspiratory Airway 31 Pressure Peak Inspiratory Airway 27 Pressure Peak Inspiratory Airway 27 Pressure Peak Inspiratory Airway 28 Pressure Peak Inspiratory Airway 23 Pressure Peak Inspiratory Airway 25 Pressure Peak Inspiratory Airway 29 Pressure Peak Inspiratory Airway 25 Pressure Peak Inspiratory Airway 30 Pressure Peak Inspiratory Airway 30 Pressure Results - Laboratory Findings CBC and BMP: 01/23/19 04:51 01/23/19 04:51 ABG ABG pH 7.21 pH Units (7.32-7.45) L 01/23/19 05:26 ABG pCO2 46 mmHg (35-45) H 01/23/19 05:26 ABG pO2 57 mmHg (85-104) L 01/23/19 05:26 ABG O2 Saturation 83 % (95-98) L 01/23/19 05:26 PT/INR, D-dimer PT 15.5 Seconds (9.4-12.1) H 01/14/19 17:30 Abnormal lab findings: Abnormal lab results WBC 14.9 K/mcL (4.3-11.1) H 01/21/19 04:00 RBC 2.83 M/mcL (4.19-5.50) L 01/23/19 04:51 Hgb 7.9 g/dL (12.9-16.9) L 01/23/19 04:51 Hct 26.2 % (37.5-50.1) L 01/23/19 04:51 MCH 27.9 pg (28.0-33.3) L 01/23/19 04:51 MCHC 30.2 g/dL (31.6-35.5) L 01/23/19 04:51 RDW 18.5 % (11.5-14.5) H 01/23/19 04:51 Plt Count 499 K/mcL (140-400) H 01/20/19 04:25 22.0 % (0-4) H 01/23/19 04:51 2.0 % (0) H 01/23/19 04:51 4.0 % (0) H 01/16/19 05:12 9.3 K/mcL (1.6-8.9) H 01/23/19 04:51 0.2 K/mcL (0.6-4.6) L 01/22/19 10:27 1.8 K/mcL (0.0-1.3) H 01/19/19 03:44 Nucleated RBCs/100 WBC 0.1 /100 WBC (0) H 01/18/19 05:40 Present (Not Present) A 01/21/19 04:00 Increased (Normal) H 01/20/19 04:25 Present (Not Present) A 01/13/19 04:00 1+ (Not Present) A 01/23/19 04:51 Present (Not Present) A 01/23/19 04:51 1+ (Not Present) A 01/23/19 04:51 Present (Not Present) A 01/13/19 04:00 1+ (Not Present) A 01/11/19 03:45 1+ (Not Present) A 01/11/19 03:45 ESR >= 130 mm/hr (0-10) H 01/17/19 04:20 PT 15.5 Seconds (9.4-12.1) H 01/14/19 17:30 APTT 23.2 Seconds (26.0-36.0) L D 01/14/19 17:30 Heparin Anti-Xa, Unfract 0.00 IU/mL (0.30-0.70) L 01/14/19 17:30 ABG pH 7.21 pH Units (7.32-7.45) L 01/23/19 05:26 ABG pCO2 46 mmHg (35-45) H 01/23/19 05:26 ABG pO2 57 mmHg (85-104) L 01/23/19 05:26 ABG HCO3 18 mEq/L (21-27) L 01/23/19 05:26 ABG Total CO2 19 mEq/L (20-26) L 01/20/19 11:55 ABG O2 Saturation 83 % (95-98) L 01/23/19 05:26 ABG Base Excess -9 mEq/L (-2 to 3) L 01/23/19 05:26 Sodium 134 mEq/L (136-145) L 01/23/19 04:51 Potassium 5.4 mEq/L (3.5-5.1) H 01/20/19 20:00 Chloride 110 mEq/L (98-107) H 01/21/19 04:00 Carbon Dioxide 18 mEq/L (23-29) L 01/23/19 04:51 BUN 68 mg/dL (8-23) H 01/23/19 04:51 2.99 mg/dL (0.70-1.30) H 01/23/19 04:51 Est GFR ( Amer) 25 (> 60) L 01/23/19 04:51 Est GFR (Non-Af Amer) 21 (> 60) L 01/23/19 04:51 28 (6-26) H 01/21/19 14:00 Glucose 240 mg/dL (70-105) H 01/23/19 04:51 POC Glucose 272 mg/dL (70-99) H 01/23/19 03:56 6.2 % (-5.6) H 01/07/19 08:46 306 (280-300) H 01/23/19 04:51 Lactic Acid 2.4 mmol/L (0.5-2.2) H 01/10/19 00:14 Calcium 8.2 mg/dL (8.6-10.3) L 01/21/19 14:00 Venous Ioniz Calcium 1.08 mmol/L (1.15-1.35) L 01/11/19 04:14 Phosphorus 5.5 mg/dL (2.7-4.5) H 01/23/19 04:51 Iron < 10 mcg/dL (65-175) L 01/18/19 05:40 98 mg/dL (203-362) L 01/18/19 05:40 AST 9 Units/L (13-39) L 01/12/19 11:21 23 Units/L (30-223) L 01/23/19 04:51 167 mg/L (Less than 10) H 01/17/19 04:20 B-Natriuretic Peptide 300 pg/mL (Less than 100) H 01/09/19 15:18 4.4 g/dL (6.4-8.9) L 01/12/19 11:21 3.0 g/dL (3.5-5.7) L 01/21/19 14:00 2.1 g/dL (2.4-3.5) L 01/12/19 11:21 11.5 mg/dL (17.0-34.0) L 01/17/19 04:20 Triglycerides 179 mg/dL (< 150) H 01/10/19 04:15 6 Units/L (11-82) L 01/07/19 08:46 2.14 ng/mL (0.00-0.15) H 01/16/19 16:09 Turbid (Clear) A 01/22/19 10:50 Ur Specific [place] 1.026 (1.010-1.025) H 01/22/19 10:50 >=300 mg/dL (Neg-Trace) H 01/22/19 10:50 Trace mg/dL (Negative) H 01/22/19 10:50 Large (Negative) H 01/22/19 10:50 Ur Leukocyte Esterase Moderate (Negative) H 01/22/19 10:50 3-5 per hpf (0-3) H 01/22/19 10:50 15-30 per hpf (0-3) H 01/22/19 10:50 Ur Squamous Epith Cells Many per lpf (None-Few) H 01/07/19 11:03 Amorphous Sediment Moderate (Few) H 01/22/19 10:50 Many per hpf (None-Few) H 01/07/19 11:03 Ur Culture Indicated? YES (NO) A 01/22/19 10:50 Fluid Appearance Cloudy (Clear) A 01/19/19 08:30 Positive (Negative) A 01/17/19 08:42 Vancomycin Trough 28 mcg/mL (5-10) H 01/22/19 12:47 Crossmatch See Detail 01/17/19 12:25 - Microbiology Findings Microbiology Findings: Microbiology, Last 48 Hours 01/18/19 14:00 Wound Culture - Final Abdomen Enterococcus faecalis Yeast Species 01/17/19 01:30 Wound Culture - Final Abdomen Group G Streptococcus Enterococcus faecalis Deirdre albicans 01/19/19 08:30 Respiratory Culture - Final Right Middle Lobe Lung 01/22/19 10:50 Urine Culture - Preliminary Urine,Clean Catch Culture is incubating. 01/18/19 14:00 Anaerobic Culture - Preliminary Aspirate At this time, no anaerobic growth is present. The culture will be finalized after 5 days of incubation. 01/16/19 16:09 Blood Culture - Final Peripheral Venipuncture No growth. Final report. 01/16/19 16:09 Blood Culture - Final Peripheral Venipuncture No growth. Final report. 01/17/19 01:30 Gram Stain - Final Abdomen - Clinical Findings Intake & Output: Intake & Output 01/22/19 01/23/19 01/23/19 23:59 07:59 15:59 Intake Total 1328 / 2148 480 / 580 100 / 580 Output Total 250 / 870 208 / 308 100 / 308 Balance 1078 / 1278 272 / 272 0 / 272 Consult Discharge Plan - Plan Referrals: Michael,Ranjit Weston MD [Primary Care Provider] - <Zulma Deleon - Last Filed: 01/23/19 22:52> Date of Encounter: 01/23/19 Objective PUL Vital signs: Last Vital Signs Temp 96.9 F L 01/23/19 20:09 Pulse 66 01/23/19 22:00 Resp 24 01/23/19 22:00 BP 111/53 01/23/19 22:00 Pulse Ox 94 01/23/19 22:00 Ventilator Settings Ventilator Settings: Ventilator Settings, Last 8 Hours Ventilator Tidal Volume 500 Setting Ventilator Tidal Volume 500 Setting Ventilator Tidal Volume 500 Setting Ventilator Tidal Volume 500 Setting Ventilator Tidal Volume 500 Setting Ventilator Tidal Volume 500 Setting Ventilator Tidal Volume 500 Setting Ventilator Tidal Volume 500 Setting Ventilator Tidal Volume 500 Setting Ventilator Tidal Volume 500 Setting Ventilator Tidal Volume 500 Setting Ventilator Tidal Volume 500 Setting Ventilator Respiratory Rate 24 Setting Ventilator Respiratory Rate 24 Setting Ventilator Respiratory Rate 24 Setting Ventilator Respiratory Rate 24 Setting Ventilator Respiratory Rate 24 Setting Ventilator Respiratory Rate 24 Setting Ventilator Respiratory Rate 24 Setting Ventilator Respiratory Rate 24 Setting Ventilator Respiratory Rate 24 Setting Ventilator Respiratory Rate 24 Setting Ventilator Respiratory Rate 24 Setting Ventilator Respiratory Rate 24 Setting Actual Respiratory Rate 24 Actual Respiratory Rate 24 Actual Respiratory Rate 27 Actual Respiratory Rate 24 Actual Respiratory Rate 24 Actual Respiratory Rate 25 Actual Respiratory Rate 24 Actual Respiratory Rate 24 Actual Respiratory Rate 24 Actual Respiratory Rate 24 Actual Respiratory Rate 24 Actual Respiratory Rate 24 Positive End Expiratory 5 Pressure Positive End Expiratory 5 Pressure Positive End Expiratory 5 Pressure Positive End Expiratory 5 Pressure Positive End Expiratory 5 Pressure Positive End Expiratory 5 Pressure Positive End Expiratory 5 Pressure Positive End Expiratory 5 Pressure Positive End Expiratory 5 Pressure Positive End Expiratory 5 Pressure Positive End Expiratory 5 Pressure Positive End Expiratory 5 Pressure Peak Inspiratory Airway 31 Pressure Peak Inspiratory Airway 36 Pressure Peak Inspiratory Airway 32 Pressure Peak Inspiratory Airway 26 Pressure Peak Inspiratory Airway 31 Pressure Peak Inspiratory Airway 26 Pressure Peak Inspiratory Airway 27 Pressure Peak Inspiratory Airway 27 Pressure Peak Inspiratory Airway 27 Pressure Peak Inspiratory Airway 27 Pressure Peak Inspiratory Airway 27 Pressure Peak Inspiratory Airway 28 Pressure Results - Laboratory Findings CBC and BMP: 01/23/19 04:51 01/23/19 04:51 ABG ABG pH 7.21 pH Units (7.32-7.45) L 01/23/19 05:26 ABG pCO2 46 mmHg (35-45) H 01/23/19 05:26 ABG pO2 57 mmHg (85-104) L 01/23/19 05:26 ABG O2 Saturation 83 % (95-98) L 01/23/19 05:26 PT/INR, D-dimer PT 15.5 Seconds (9.4-12.1) H 01/14/19 17:30 Abnormal lab findings: Abnormal lab results WBC 14.9 K/mcL (4.3-11.1) H 01/21/19 04:00 RBC 2.83 M/mcL (4.19-5.50) L 01/23/19 04:51 Hgb 7.9 g/dL (12.9-16.9) L 01/23/19 04:51 Hct 26.2 % (37.5-50.1) L 01/23/19 04:51 MCH 27.9 pg (28.0-33.3) L 01/23/19 04:51 MCHC 30.2 g/dL (31.6-35.5) L 01/23/19 04:51 RDW 18.5 % (11.5-14.5) H 01/23/19 04:51 Plt Count 499 K/mcL (140-400) H 01/20/19 04:25 22.0 % (0-4) H 01/23/19 04:51 2.0 % (0) H 01/23/19 04:51 4.0 % (0) H 01/16/19 05:12 9.3 K/mcL (1.6-8.9) H 01/23/19 04:51 0.2 K/mcL (0.6-4.6) L 01/22/19 10:27 1.8 K/mcL (0.0-1.3) H 01/19/19 03:44 Nucleated RBCs/100 WBC 0.1 /100 WBC (0) H 01/18/19 05:40 Present (Not Present) A 01/21/19 04:00 Increased (Normal) H 01/20/19 04:25 Present (Not Present) A 01/13/19 04:00 1+ (Not Present) A 01/23/19 04:51 Present (Not Present) A 01/23/19 04:51 1+ (Not Present) A 01/23/19 04:51 Present (Not Present) A 01/13/19 04:00 1+ (Not Present) A 01/11/19 03:45 1+ (Not Present) A 01/11/19 03:45 ESR >= 130 mm/hr (0-10) H 01/17/19 04:20 PT 15.5 Seconds (9.4-12.1) H 01/14/19 17:30 APTT 23.2 Seconds (26.0-36.0) L D 01/14/19 17:30 Heparin Anti-Xa, Unfract 0.00 IU/mL (0.30-0.70) L 01/14/19 17:30 ABG pH 7.21 pH Units (7.32-7.45) L 01/23/19 05:26 ABG pCO2 46 mmHg (35-45) H 01/23/19 05:26 ABG pO2 57 mmHg (85-104) L 01/23/19 05:26 ABG HCO3 18 mEq/L (21-27) L 01/23/19 05:26 ABG Total CO2 19 mEq/L (20-26) L 01/20/19 11:55 ABG O2 Saturation 83 % (95-98) L 01/23/19 05:26 ABG Base Excess -9 mEq/L (-2 to 3) L 01/23/19 05:26 Sodium 134 mEq/L (136-145) L 01/23/19 04:51 Potassium 5.4 mEq/L (3.5-5.1) H 01/20/19 20:00 Chloride 110 mEq/L (98-107) H 01/21/19 04:00 Carbon Dioxide 18 mEq/L (23-29) L 01/23/19 04:51 BUN 68 mg/dL (8-23) H 01/23/19 04:51 2.99 mg/dL (0.70-1.30) H 01/23/19 04:51 Est GFR ( Amer) 25 (> 60) L 01/23/19 04:51 Est GFR (Non-Af Amer) 21 (> 60) L 01/23/19 04:51 28 (6-26) H 01/21/19 14:00 Glucose 240 mg/dL (70-105) H 01/23/19 04:51 POC Glucose 272 mg/dL (70-99) H 01/23/19 03:56 6.2 % (-5.6) H 01/07/19 08:46 306 (280-300) H 01/23/19 04:51 Lactic Acid 2.4 mmol/L (0.5-2.2) H 01/10/19 00:14 Calcium 8.2 mg/dL (8.6-10.3) L 01/21/19 14:00 Venous Ioniz Calcium 1.08 mmol/L (1.15-1.35) L 01/11/19 04:14 Phosphorus 5.5 mg/dL (2.7-4.5) H 01/23/19 04:51 Iron < 10 mcg/dL (65-175) L 01/18/19 05:40 98 mg/dL (203-362) L 01/18/19 05:40 AST 9 Units/L (13-39) L 01/12/19 11:21 23 Units/L (30-223) L 01/23/19 04:51 167 mg/L (Less than 10) H 01/17/19 04:20 B-Natriuretic Peptide 300 pg/mL (Less than 100) H 01/09/19 15:18 4.4 g/dL (6.4-8.9) L 01/12/19 11:21 3.0 g/dL (3.5-5.7) L 01/21/19 14:00 2.1 g/dL (2.4-3.5) L 01/12/19 11:21 11.5 mg/dL (17.0-34.0) L 01/17/19 04:20 Triglycerides 179 mg/dL (< 150) H 01/10/19 04:15 6 Units/L (11-82) L 01/07/19 08:46 2.14 ng/mL (0.00-0.15) H 01/16/19 16:09 Turbid (Clear) A 01/22/19 10:50 Ur Specific [place] 1.026 (1.010-1.025) H 01/22/19 10:50 >=300 mg/dL (Neg-Trace) H 01/22/19 10:50 Trace mg/dL (Negative) H 01/22/19 10:50 Large (Negative) H 01/22/19 10:50 Ur Leukocyte Esterase Moderate (Negative) H 01/22/19 10:50 3-5 per hpf (0-3) H 01/22/19 10:50 15-30 per hpf (0-3) H 01/22/19 10:50 Ur Squamous Epith Cells Many per lpf (None-Few) H 01/07/19 11:03 Amorphous Sediment Moderate (Few) H 01/22/19 10:50 Many per hpf (None-Few) H 01/07/19 11:03 Ur Culture Indicated? YES (NO) A 01/22/19 10:50 Fluid Appearance Cloudy (Clear) A 01/19/19 08:30 Positive (Negative) A 01/17/19 08:42 Vancomycin Trough 28 mcg/mL (5-10) H 01/22/19 12:47 Crossmatch See Detail 01/17/19 12:25 - Microbiology Findings Microbiology Findings: Microbiology, Last 48 Hours 01/22/19 10:50 Urine Culture - Final Urine,Clean Catch No growth. 01/18/19 14:00 Wound Culture - Final Abdomen Enterococcus faecalis Yeast Species 01/17/19 01:30 Wound Culture - Final Abdomen Group G Streptococcus Enterococcus faecalis Deirdre albicans 01/19/19 08:30 Respiratory Culture - Final Right Middle Lobe Lung 01/18/19 14:00 Anaerobic Culture - Preliminary Aspirate At this time, no anaerobic growth is present. The culture will be finalized after 5 days of incubation. - Clinical Findings Intake & Output: Intake & Output 01/23/19 01/23/19 01/23/19 07:59 15:59 23:59 Intake Total 780 / 2245.2 350 / 2245.2 1115.2 / 2245.2 Output Total 208 / 718 310 / 718 200 / 718 Balance 572 / 1527.2 40 / 1527.2 915.2 / 1527.2 - Attending Attestation I saw and evaluated this patient and my medical decision-making was reviewed with the Resident Physician. I agree with the documented findings, disposition and treatment plan as described except to the extent set forth below. We independently had [id number] contact with the patient I spent 40 minutes of Critical Care time with this patient. It involved decision making of high complexity to assess, manipulate, and support vital organ system failure and/or to prevent further life threatening deterioration of the patient's condition. The time involved in the performance of separately reportable procedures was not counted toward critical care time. Patient seen and examined at bedside Labs, radiology, chart personally reviewed. Management was reviewed during multidisciplinary critical care rounds. [employer] SHA[employer] SINKING: Patient encephalopathy most likely secondary to toxic/metabolic encephalopathy Pulm: Patient has acceptable oxygenation and ventilation to bring down FiO2 to keep saturation between 90-92%. Temperature is complicated by possible pneumonia and hydrostatic pulmonary edema , diuresis if hemodynamically tolerated Patient has acceptable oxygenation and ventilation patient is slightly acidotic low tidal volume with adequate minute ventilation to be establishED. We will repeat a blood gas.. Cards: Patient is a septic shock complicated by pneumonia now worsening acute kidney injury patient is almost 16-17 L positive for stay. Patient is on the vasopressor support FEN-GI: To continue dietary according to nutrition. To continue IV PPI. We will transition IV parenteral nutrition to enteral nutrition women's upon the degree of shock. Renal: Patient has worsening acute kidney injury 16-17 litres of positive fluid balance consulted nephrology looks like sepsis induced acute kidney injury ID: To the broad-spectrum antibiotics to de-escalate antibiotics according to the clinical response. Patient is septic shock most likely due to pneumonia. Patient does sepsis induced acute kidney injury will need dialysis most likely CVVH Heme/Onc: Labs reviewed Endo: Glucose Monitored Integ/MSK: Skin Care per routine ICU Nursing Protocol to prevent ulcers. Lines: All lines examined without evidence of infection : Dispo: critically ill CODE:full code
--- NOTE | 2019-01-23 11:41 | AcuteCareSurgery Progress Note ---
<LenarddavidjaysonLu Zapata - Last Filed: 01/23/19 15:29> Date of Encounter: 01/23/19 Time of Encounter: 11:41 - Assessment and Plan (1) Colon obstruction Current Visit: Yes Status: Acute Status post laparotomy with lysis of adhesions, unavoidable enterotomy, takedown colostomy, left colon resection, transverse colostomy, small bowel resection wi th primary anastomosis day 15 Status post interventional radiology CT-guided abdominal abscess drainage with drains placed 2. Purulent fluid removed. 01/18/19 CT abdomen and pelvis 01/20/19- Right lower lobe pneumonia, dense consolidation left lung base, and abdomen no new focal fluid collections, extensive edema, ascites and complex fluid are stable since prior. Mild wall thickening of the bowel without pneumatosis, complex fluid and air within the midline and left lower quadrant incision sites. Remains intubated, sedated Continue Levophed for pressure support Fever has resolved Leukocytosis has resolved, currently 11.1 Wound culture positive for group G Streptococcus, enterococcus faecalis, ismael albicans Right middle lobe lung - respiratory culture shows many WBC, bacteria, few gram- positive cocci, few yeast. No acid fast bacilli. Fungal culture remains pending Aspirate-anaerobic culture shows no growth to date and fungal cultures pending Blood cultures negative Urine culture negative Antibiotic coverage-cefepime, clindamycin, diflucan, linezolid. Nutrition-TPN, tube feeds Renal function has continued to decline, nephrology has been consulted Continue monitoring output of colostomy Continue monitoring output of FARIDA drains x2 - scant serous drainage, 3 ml and 5 ml Continue wound care, daily dressing and packing changes (2) Sepsis Current Visit: Yes Status: Acute Leukocytosis has resolved, afebrile, days to have tachypnea, hypotension requiring pressor support - CT abdomen and pelvis 01/20/19-new extensive right lower lobe airspace disease with trace right pleural effusion suggesting new right lower lobe pneumonia, persistent dense consolidation and pleural effusion the left lung base. 2 p ercutaneous drainage catheters left abdomen with resolution of previously seen focal fluid collections, extensive edema, ascites, and complex fluid in the abdomen pelvis which is stable to prior, mild wall thickening of the bowel with no evidence of pneumatosis, possible dehiscent anterior abdominal wall wounds with skin wilmar but complex fluid and air within the midline and left lower quadrant incision sites. Secondary to ischemic bowel, purulent intrabdominal abscess x2, pneumonia, aspiration Antibiotic coverage currently includes cefepime, clindamycin, Diflucan, linezolid Management per primary Qualifiers: Sepsis type: Streptococcus, other Qualified Code(s): A40.8 - Other streptococcal sepsis (3) Acute respiratory failure with hypoxia Current Visit: Yes Status: Acute Patient intubated, sedated in the ICU Continue respiratory support ICU team to manage vent (4) TONO (acute kidney injury) Current Visit: Yes Status: Acute Patient sustained TONO, secondary to hypotension, sepsis, possibly secondary to vancomycin Renal function continues to decline Management per nephrology (5) DVT prophylaxis Current Visit: Yes Status: Acute SCDs Subjective Narrative: Patient seen and examined at bedside today. He remains intubated, sedated. He continues to require levophed. His leukocytosis has resolved, currently 11.1. His renal function continues to decline. Nephrology is on the case. Patient tolerating tube feeds through PEG tube. Objective Vital Signs - Last 8 Hours Temp Pulse Resp BP Pulse Ox 01/23/19 11:08 96.1 F L 01/23/19 09:35 26 110/54 92 01/23/19 09:00 64 22 115/54 92 01/23/19 08:00 65 25 114/52 93 01/23/19 07:55 22 118/52 92 01/23/19 07:18 97.5 F L 01/23/19 07:00 61 28 109/48 92 01/23/19 06:00 60 28 99/49 91 01/23/19 05:30 26 91 01/23/19 05:00 60 24 93/51 91 01/23/19 04:00 97.6 F 60 26 94/50 91 Intake and Output 01/22/19 01/23/19 01/23/19 23:59 07:59 15:59 Intake Total 1328 / 2148 480 / 580 100 / 580 Output Total 250 / 870 208 / 308 100 / 308 Balance 1078 / 1278 272 / 272 0 / 272 Intake: IV Fluids 1280 / 2100 470 / 570 100 / 570 PRECEDEX Premix 400 mcg In 100 100 / 400 100 / 200 100 / 200 ml @ 0.2 MCG/KG/HR 4.65 mls/hr IVC .[id number] [facility] Rx#:[id number] FentaNYL (PF) 1,000 MCG In 0.9 100 / 200 100 / 100 % Sodium Chloride 80 ML @ 50 MCG/HR 5 mls/hr IVC CONT [facility] Rx #:[id number] Levophed 8 MG In Dextrose 5% 0 / 0 0 / 0 250 ML @ 8 MCG/MIN 15.48 mls/hr IVC CONT [facility] Rx#:[id number] Diprivan 1,000 mg In 100 ml @ 5 100 / 300 200 / 200 MCG/KG/MIN 2.859 mls/hr IVC . Q24H [facility] Rx#:[id number] Maxipime 2,000 MG In Water for 20 / 40 20 / 20 inj. (sterile) 20 ML @ 300 mls/ hr IVP Q12H [facility] Rx#:[id number] Cleocin Premix 600 MG/50 ML 600 50 / 150 50 / 50 mg In 50 ml @ 50 mls/hr IVPB Q8HR [facility] Rx#:[id number] Diflucan Premix 400 MG/200 ML 400 / 400 400 mg In 200 ml @ 100 mls/hr IVPB Q2H [facility] Rx#:[id number] Zyvox Premix 600mg/300mL 600 mg 300 / 300 In 300 ml @ 150 mls/hr IVPB Q12HR [facility] Rx#:[id number] Mycamine 100 MG In 0.9 % Sodium 100 / 100 Chloride (Mini-Bag +) 100 ML @ 100 mls/hr IVPB DAILY [facility] Rx#: [id number] Ferrlecit 125 MG In 0.9 % 110 / 110 Sodium Chloride 100 ML @ 110 mls/hr IVPB 3XW [facility] Rx#: [id number] Tube Feeding 48 / 48 10 / 10 Output: Stool 0 / 0 0 / 0 Catheter 250 / 640 200 / 300 100 / 300 Gastric Drainage 0 / 0 0 / 0 Wound Drainage 8 / 8 0 / 8 Left Abd, FARIDA # 2 3 / 3 0 / 3 Left Abd, FARIDA #1 5 / 5 0 / 5 Other: Blood Glucose* 292 261 288 - General physical appearance no distress, other (Intubated, sedated, pale) - Eyes PERRL - ENT no congestion, dry mucosa - Neck Neck exam: trachea midline, no venous distension - Respiratory normal expansion, normal respiratory effort, other (Rhonchi and coarse breath sounds bilaterally) - Cardiovascular Cardiovascular exam: Present: RRR, no murmurs/rubs/gallops. Absent: JVD - Abdomen Abdomen: Present: bowel sounds present, soft, non tender. Absent: distended - Incision Incision: Present: clean and dry, intact (Midline incision has packing in place, some scant serous drainage on dressing. No erythema. FARIDA drain 2, some serous fluid in bulbs) - Integumentary no rash, other (Pale) - Neurologic other (Patient intubated, sedated, unable to assess) - Musculoskeletal normal posture, other (1+ pitting edema to bilateral upper and lower extremities) - Psychiatric other (Patient intubated, sedated, unable to assess) - Labs 01/23/19 04:51 01/23/19 04:51 Diabetes panel 01/22/19 01/23/19 Range/Units 03:53 04:51 Sodium 138 134 L (136-145) mEq/L Potassium 4.8 3.9 (3.5-5.1) mEq/L Chloride 107 104 (98-107) mEq/L Carbon Dioxide 21 L 18 L (23-29) mEq/L BUN 57 H 68 H (8-23) mg/dL Creatinine 2.28 H 2.99 H (0.70-1.30) mg/dL Glucose 161 H 240 H (70-105) mg/dL Calcium 8.6 8.6 (8.6-10.3) mg/dL Calcium panel 01/22/19 01/23/19 Range/Units 03:53 04:51 Calcium 8.6 8.6 (8.6-10.3) mg/dL Phosphorus 5.7 H 5.5 H (2.7-4.5) mg/dL Pituitary panel 01/22/19 01/23/19 Range/Units 03:53 04:51 Sodium 138 134 L (136-145) mEq/L Potassium 4.8 3.9 (3.5-5.1) mEq/L Chloride 107 104 (98-107) mEq/L Carbon Dioxide 21 L 18 L (23-29) mEq/L BUN 57 H 68 H (8-23) mg/dL Creatinine 2.28 H 2.99 H (0.70-1.30) mg/dL Glucose 161 H 240 H (70-105) mg/dL Calcium 8.6 8.6 (8.6-10.3) mg/dL Adrenal panel 01/22/19 01/23/19 Range/Units 03:53 04:51 Sodium 138 134 L (136-145) mEq/L Potassium 4.8 3.9 (3.5-5.1) mEq/L Chloride 107 104 (98-107) mEq/L Carbon Dioxide 21 L 18 L (23-29) mEq/L BUN 57 H 68 H (8-23) mg/dL Creatinine 2.28 H 2.99 H (0.70-1.30) mg/dL Glucose 161 H 240 H (70-105) mg/dL Calcium 8.6 8.6 (8.6-10.3) mg/dL Consult Discharge Plan - Plan Referrals: Ranjit Rodriguez MD [Primary Care Provider] - <Ranjit Zhong - Last Filed: 01/23/19 16:46> Date of Encounter: 01/23/19 - Assessment and Plan (1) Colon obstruction Current Visit: Yes Status: Acute Objective Vital Signs - Last 8 Hours Temp Pulse Resp BP Pulse Ox 01/23/19 15:43 96.2 F L 01/23/19 15:00 60 24 99/54 97 01/23/19 14:00 61 23 109/55 97 01/23/19 13:00 62 22 107/51 93 01/23/19 12:00 61 25 103/49 93 01/23/19 11:25 21 109/53 92 01/23/19 11:08 96.1 F L 01/23/19 11:00 61 22 109/53 92 01/23/19 10:00 63 25 109/54 93 01/23/19 09:35 26 110/54 92 01/23/19 09:00 64 22 115/54 92 Intake and Output 01/23/19 01/23/19 01/23/19 07:59 15:59 23:59 Intake Total 480 / 680 200 / 680 Output Total 208 / 518 310 / 518 Balance 272 / 162 -110 / 162 Intake: IV Fluids 470 / 670 200 / 670 PRECEDEX Premix 400 mcg In 100 100 / 200 100 / 200 ml @ 0.2 MCG/KG/HR 4.65 mls/hr IVC .[id number] [facility] Rx#:[id number] FentaNYL (PF) 1,000 MCG In 0.9 100 / 100 % Sodium Chloride 80 ML @ 50 MCG/HR 5 mls/hr IVC [facility] Rx #:[id number] Levophed 8 MG In Dextrose 5% 0 / 0 250 ML @ 8 MCG/MIN 15.48 mls/hr IVC CONT [facility] Rx#:[id number] Diprivan 1,000 mg In 100 ml @ 5 200 / 300 100 / 300 MCG/KG/MIN 2.859 mls/hr IVC . Q24H [facility] Rx#:[id number] Maxipime 2,000 MG In Water for inj. (sterile) 20 ML @ 300 mls/ hr IVP Q12H [facility] Rx#:[id number] Cleocin Premix 600 MG/50 ML 600 50 / 50 mg In 50 ml @ 50 mls/hr IVPB Q8HR [facility] Rx#:[id number] Tube Feeding Output: Stool 0 / 0 0 / 0 Catheter 200 / 500 300 / 500 Gastric Drainage 0 / 0 0 / 0 Wound Drainage Left Abd, FARIDA # 2 Left Abd, FARIDA #1 Other: Blood Glucose* 261 260 - Labs 01/23/19 04:51 01/23/19 04:51 Diabetes panel 01/23/19 Range/Units 04:51 Sodium 134 L (136-145) mEq/L Potassium 3.9 (3.5-5.1) mEq/L Chloride 104 (98-107) mEq/L Carbon Dioxide 18 L (23-29) mEq/L BUN 68 H (8-23) mg/dL Creatinine 2.99 H (0.70-1.30) mg/dL Glucose 240 H (70-105) mg/dL Calcium 8.6 (8.6-10.3) mg/dL Calcium panel 01/23/19 Range/Units 04:51 Calcium 8.6 (8.6-10.3) mg/dL Phosphorus 5.5 H (2.7-4.5) mg/dL Pituitary panel 01/23/19 Range/Units 04:51 Sodium 134 L (136-145) mEq/L Potassium 3.9 (3.5-5.1) mEq/L Chloride 104 (98-107) mEq/L Carbon Dioxide 18 L (23-29) mEq/L BUN 68 H (8-23) mg/dL Creatinine 2.99 H (0.70-1.30) mg/dL Glucose 240 H (70-105) mg/dL Calcium 8.6 (8.6-10.3) mg/dL Adrenal panel 01/23/19 Range/Units 04:51 Sodium 134 L (136-145) mEq/L Potassium 3.9 (3.5-5.1) mEq/L Chloride 104 (98-107) mEq/L Carbon Dioxide 18 L (23-29) mEq/L BUN 68 H (8-23) mg/dL Creatinine 2.99 H (0.70-1.30) mg/dL Glucose 240 H (70-105) mg/dL Calcium 8.6 (8.6-10.3) mg/dL - Attending Attestation I examined this patient and my medical decision-making was reviewed with the Resident Physician. I agree with the documented findings, disposition and treatment plan as described except to the extent set forth below. The patient is seen and evaluated on an acute care surgery rounds. His white blood cell count is coming down, however, his creatinine is rising and he may require renal support. Bowel sounds are positive and he does have ostomy function. Midline wound is in excellent condition. Continue supportive care Ranjit Zhong MD FACS
[2019-01-23] MEDS: Norepinephrine 8 MG in D5% in Water 250 ML IVC SCH ×2 (12:34→22:20)
[2019-01-23] MEDS ORDERED: Heparin 1,000 UNITS/500 mL 500 ML ONE (13:18)
[2019-01-23] MEDS ORDERED: *HR* Heparin 5,000 UNIT/ML VIAL ONE (14:01)
--- NOTE | 2019-01-23 14:07 | IR Procedure Note ---
Date of procedure: 01/23/19 Consent Obtained: Written consent Timeout: Correct patient and procedure verified, Time out performed, Skin prep completed Local anesthetic: Lidocaine 1% Was there an bilingual medical assistant present: No Estimated blood loss (cc): 0 Complications: None; Tolerated procedure well Indications: ARF Procedure Performed: Temp dialysis cath placeemtn Results/Findings (any specimens removed): LIJ 12F 20cm temp dialysis cath ap[lceemt Post Procedure Treatment Plan: monitor onfloor Specimen: none
[2019-01-23] MEDS ORDERED: Clinimix 5%-20% SOLUTION 2,000 ML with MVI, adult with vitamin K 10 ML, Trace Element... IVC SCH (17:00)
[2019-01-23] MEDS: Latanoprost 2.5 ML BOTTLE RIGHT EYE SCH (19:44)
--- NOTE | 2019-01-23 23:08 | Nephrology Progress Note ---
Date of Encounter: 01/23/19 Time of Encounter: 12:00 - Assessment and Plan (1) Acute kidney injury superimposed on CKD Current Visit: Yes Status: Acute SCr continues to worse at 2.99, GFR 21 UOP remains unimpressive at 640cc in the past 24hrs. Overall pt is over 7liters positive Discussed at length poor renal fxn and fluid overload and the family are willing to procee with [facility]. Will have IR place line first and then proceed (2) Acute respiratory failure with hypoxia Current Visit: Yes Status: Acute (3) Colostomy dysfunction Current Visit: Yes Status: Resolved Subjective Principal diagnosis: Postop colectomy and colostomy Interval history: Pt seen and examined still intubated and sedated with family at bedside. Remains on pressor support Objective - Vital Signs Vital signs: Vital Signs Temp Pulse Resp BP Pulse Ox 01/23/19 23:00 65 26 109/54 93 01/23/19 22:00 66 24 111/53 94 01/23/19 21:31 24 113/50 92 01/23/19 21:00 69 27 114/53 93 01/23/19 20:09 96.9 F L 01/23/19 20:00 72 24 123/54 94 01/23/19 19:47 24 126/53 94 01/23/19 19:00 73 25 122/53 94 01/23/19 18:14 24 92 01/23/19 18:00 60 24 98/53 93 01/23/19 17:00 60 24 97/55 93 01/23/19 16:07 24 93 01/23/19 16:00 60 24 102/58 97 01/23/19 15:43 96.2 F L 01/23/19 15:00 60 24 99/54 97 01/23/19 14:00 61 23 109/55 97 01/23/19 13:00 62 22 107/51 93 01/23/19 12:00 61 25 103/49 93 01/23/19 11:25 21 109/53 92 01/23/19 11:08 96.1 F L 01/23/19 11:00 61 22 109/53 92 01/23/19 10:00 63 25 109/54 93 01/23/19 09:35 26 110/54 92 01/23/19 09:00 64 22 115/54 92 01/23/19 08:00 65 25 114/52 93 01/23/19 07:55 22 118/52 92 01/23/19 07:18 97.5 F L 01/23/19 07:00 61 28 109/48 92 01/23/19 06:00 60 28 99/49 91 01/23/19 05:30 26 91 01/23/19 05:00 60 24 93/51 91 01/23/19 04:00 97.6 F 60 26 94/50 91 01/23/19 03:00 60 26 100/52 90 01/23/19 02:00 60 24 105/51 91 01/23/19 01:40 28 104/58 90 01/23/19 01:00 60 24 97/50 91 01/23/19 00:00 60 26 100/52 91 01/22/19 23:59 97.0 F L 01/22/19 23:42 27 103/53 91 01/22/19 23:30 60 Intake and Output 01/23/19 01/23/19 01/23/19 07:59 15:59 23:59 Intake Total 780 / 2245.2 350 / 2245.2 1115.2 / 2245.2 Output Total 208 / 718 310 / 718 200 / 718 Balance 572 / 1527.2 40 / 1527.2 915.2 / 1527.2 Intake: IV Fluids 770 / 2235.2 350 / 2235.2 1115.2 / 2235.2 PRECEDEX Premix 400 mcg In 100 100 / 400 100 / 400 200 / 400 ml @ 0.2 MCG/KG/HR 4.65 mls/hr IVC .[id number] [facility] Rx#:[id number] FentaNYL (PF) 1,000 MCG In 0.9 100 / 200 100 / 200 % Sodium Chloride 80 ML @ 50 MCG/HR 5 mls/hr IVC [facility] Rx #:[id number] Levophed 8 MG In Dextrose 5% 0 / 145.2 145.2 / 145.2 250 ML @ 8 MCG/MIN 15.48 mls/hr IVC CONT [facility] Rx#:[id number] Diprivan 1,000 mg In 100 ml @ 5 200 / 500 100 / 500 200 / 500 MCG/KG/MIN 2.859 mls/hr IVC . Q24H [facility] Rx#:[id number] Maxipime 2,000 MG In Water for 40 20 / 40 inj. (sterile) 20 ML @ 300 mls/ hr IVP Q12H [facility] Rx#:[id number] Cleocin Premix 600 MG/50 ML 600 50 / 150 50 / 150 50 / 150 mg In 50 ml @ 50 mls/hr IVPB Q8HR [facility] Rx#:[id number] Diflucan Premix 400 MG/200 ML 200 / 200 400 mg In 200 ml @ 200 mls/hr IVPB DAILY [facility] Rx#:[id number] Zyvox Premix 600mg/300mL 600 mg 300 / 600 300 / 600 In 300 ml @ 150 mls/hr IVPB Q12HR [facility] Rx#:[id number] Tube Feeding Output: Stool 0 / 0 0 / 0 Catheter 200 / 700 300 / 700 200 / 700 Gastric Drainage 0 / 0 0 / 0 Wound Drainage 0 Left Abd, FARIDA # 2 0 Left Abd, FARIDA #1 0 Other: Blood Glucose* 261 260 257 - General Appearance General appearance: Present: sedated on ventilator, intubated EENT: Present: ATNC, mucous membranes moist Neck: Present: no JVD, supple Respiratory: Present: course breath sounds Cardiology: Present: edema, normal S1, normal S2 Gastrointestinal: Present: no tenderness, no guarding, obese Integumentary: Present: warm and dry Additional Comments: sedated Musculoskeletal: Present: no deformities Additional Comments: sedated - Lab 01/23/19 04:51 01/23/19 04:51 Consult Discharge Plan - Plan Referrals: Ranjit Rodriguez MD [Primary Care Provider] -
[2019-01-23 23:09] LABS: ABG Base Excess -10 mEq/L (-2 to 3); ABG HCO3 18 mEq/L (21-27); ABG Oxygen Saturation 88 % (95-98); ABG PCO2 45 mmHg (35-45); ABG PH 7.21 pH Units (7.32-7.45); ABG PO2 65 mmHg (85-104); ABG TCO2 19 mEq/L (20-26); Blood Gas Modality PRVC; Blood Gas PEEP 5 cm H2O; Blood Gas VT 500 cc
[2019-01-24] MEDS: Ipratropium/Albuterol Neb 3 ML IH SCH ×6 (03:48→23:41)
[2019-01-24 04:41] LABS: Hemoglobin 8.2 g/dL (12.9-16.9); Mean Corpuscular HGB Conc 30.4 g/dL (31.6-35.5); Mean Corpuscular Hemoglobin 28.1 pg (28.0-33.3); Mean Corpuscular Volume 92.5 fL (83.0-100.0); Mean Platelet Volume 11.6 fL (9.4-12.4); Nucleated Red Blood Cells 0.2 /100 WBC (0); Platelet Count 334 K/mcL (140-400); Red Blood Count 2.92 M/mcL (4.19-5.50); Red Cell Distribution Width 18.4 % (11.5-14.5); White Blood Count 13.7 K/mcL (4.3-11.1)
[2019-01-24 04:43] LABS: ABG Base Excess -10 mEq/L (-2 to 3); ABG HCO3 17 mEq/L (21-27); ABG Oxygen Saturation 87 % (95-98); ABG PCO2 42 mmHg (35-45); ABG PH 7.21 pH Units (7.32-7.45); ABG PO2 64 mmHg (85-104); ABG TCO2 18 mEq/L (20-26); Blood Gas Modality ASSIST CONTROL; Blood Gas PEEP 5 cm H2O; Blood Gas VT 550 cc
[2019-01-24] MEDS: Artificial Tears SOLN 15 ML BOTTLE BOTH EYES SCH ×6 (04:56→23:20)
[2019-01-24] MEDS: Insulin LISPRO 300 UNITS/3 ML VIAL SQ SCH ×2 (04:57→08:16)
[2019-01-24] MEDS: Dexmedetomidine HCl 400 MCG/100 ML MLS IVC SCH ×2 (04:58→09:35)
[2019-01-24 05:01] LABS: Calcium 8.8 mg/dL (8.6-10.3); Phosphorous 5.8 mg/dL (2.7-4.5); Potassium 3.9 mEq/L (3.5-5.1)
[2019-01-24] MEDS: Cefepime HCl 2,000 MG in Water for inj. (sterile) 20 ML IVP SCH ×2 (05:04→17:26)
[2019-01-24 05:13] LABS: Platelet Estimate Normal (Normal)
[2019-01-24 05:15] LABS: Eosinophils # 0.6 K/mcL (0.0-0.6); Lymphocytes # 0.3 K/mcL (0.6-4.6); Monocytes # 0.3 K/mcL (0.0-1.3); Neutrophils # 12.3 K/mcL (1.6-8.9)
[2019-01-24 05:16] LABS: Anisocytosis 1+ (Not Present); Hypochromasia Present (Not Present)
--- NOTE | 2019-01-24 06:22 | Pulmonology Progress Note ---
Date of Encounter: 01/24/19 Subjective Principal diagnosis: Postop colectomy and colostomy Objective PUL Vital signs: Last Vital Signs Temp 96.6 F L 01/24/19 04:00 Pulse 63 01/24/19 05:00 Resp 24 01/24/19 05:36 BP 94/49 01/24/19 05:36 Pulse Ox 93 01/24/19 05:36 Ventilator Settings Ventilator Settings: Ventilator Settings, Last 8 Hours Ventilator Tidal Volume 550 Setting Ventilator Tidal Volume 550 Setting Ventilator Tidal Volume 550 Setting Ventilator Tidal Volume 550 Setting Ventilator Tidal Volume 550 Setting Ventilator Tidal Volume 550 Setting Ventilator Tidal Volume 550 Setting Ventilator Tidal Volume 550 Setting Ventilator Tidal Volume 550 Setting Ventilator Tidal Volume 550 Setting Ventilator Tidal Volume 550 Setting Ventilator Tidal Volume 550 Setting Ventilator Tidal Volume 500 Setting Ventilator Tidal Volume 500 Setting Ventilator Respiratory Rate 24 Setting Ventilator Respiratory Rate 24 Setting Ventilator Respiratory Rate 24 Setting Ventilator Respiratory Rate 24 Setting Ventilator Respiratory Rate 24 Setting Ventilator Respiratory Rate 24 Setting Ventilator Respiratory Rate 24 Setting Ventilator Respiratory Rate 24 Setting Ventilator Respiratory Rate 24 Setting Ventilator Respiratory Rate 24 Setting Ventilator Respiratory Rate 24 Setting Ventilator Respiratory Rate 24 Setting Ventilator Respiratory Rate 24 Setting Actual Respiratory Rate 24 Actual Respiratory Rate 24 Actual Respiratory Rate 24 Actual Respiratory Rate 24 Actual Respiratory Rate 24 Actual Respiratory Rate 24 Actual Respiratory Rate 26 Actual Respiratory Rate 32 Actual Respiratory Rate 24 Actual Respiratory Rate 24 Actual Respiratory Rate 26 Positive End Expiratory 5 Pressure Positive End Expiratory 5 Pressure Positive End Expiratory 5 Pressure Positive End Expiratory 5 Pressure Positive End Expiratory 5 Pressure Positive End Expiratory 5 Pressure Positive End Expiratory 5 Pressure Positive End Expiratory 5 Pressure Positive End Expiratory 5 Pressure Positive End Expiratory 5 Pressure Positive End Expiratory 5 Pressure Positive End Expiratory 5 Pressure Positive End Expiratory 5 Pressure Peak Inspiratory Airway 33 Pressure Peak Inspiratory Airway 32 Pressure Peak Inspiratory Airway 32 Pressure Peak Inspiratory Airway 34 Pressure Peak Inspiratory Airway 32 Pressure Peak Inspiratory Airway 32 Pressure Peak Inspiratory Airway 38 Pressure Peak Inspiratory Airway 32 Pressure Peak Inspiratory Airway 32 Pressure Peak Inspiratory Airway 35 Pressure Peak Inspiratory Airway 32 Pressure Results - Laboratory Findings CBC and BMP: 01/24/19 03:50 01/24/19 03:50 ABG ABG pH 7.21 pH Units (7.32-7.45) L 01/24/19 04:39 ABG pCO2 42 mmHg (35-45) 01/24/19 04:39 ABG pO2 64 mmHg (85-104) L 01/24/19 04:39 ABG O2 Saturation 87 % (95-98) L 01/24/19 04:39 PT/INR, D-dimer PT 15.5 Seconds (9.4-12.1) H 01/14/19 17:30 Abnormal lab findings: Abnormal lab results WBC 13.7 K/mcL (4.3-11.1) H 01/24/19 03:50 RBC 2.92 M/mcL (4.19-5.50) L 01/24/19 03:50 Hgb 8.2 g/dL (12.9-16.9) L 01/24/19 03:50 Hct 27.0 % (37.5-50.1) L 01/24/19 03:50 MCH 27.9 pg (28.0-33.3) L 01/23/19 04:51 MCHC 30.4 g/dL (31.6-35.5) L 01/24/19 03:50 RDW 18.4 % (11.5-14.5) H 01/24/19 03:50 Plt Count 499 K/mcL (140-400) H 01/20/19 04:25 10.0 % (0-4) H 01/24/19 03:50 2.0 % (0) H 01/24/19 03:50 4.0 % (0) H 01/16/19 05:12 12.3 K/mcL (1.6-8.9) H 01/24/19 03:50 0.3 K/mcL (0.6-4.6) L 01/24/19 03:50 1.8 K/mcL (0.0-1.3) H 01/19/19 03:44 Nucleated RBCs/100 WBC 0.2 /100 WBC (0) H 01/24/19 03:50 Present (Not Present) A 01/21/19 04:00 Increased (Normal) H 01/20/19 04:25 Present (Not Present) A 01/13/19 04:00 1+ (Not Present) A 01/23/19 04:51 Present (Not Present) A 01/24/19 03:50 1+ (Not Present) A 01/24/19 03:50 Present (Not Present) A 01/13/19 04:00 1+ (Not Present) A 01/11/19 03:45 1+ (Not Present) A 01/11/19 03:45 ESR >= 130 mm/hr (0-10) H 01/17/19 04:20 PT 15.5 Seconds (9.4-12.1) H 01/14/19 17:30 APTT 23.2 Seconds (26.0-36.0) L D 01/14/19 17:30 Heparin Anti-Xa, Unfract 0.00 IU/mL (0.30-0.70) L 01/14/19 17:30 ABG pH 7.21 pH Units (7.32-7.45) L 01/24/19 04:39 ABG pCO2 46 mmHg (35-45) H 01/23/19 05:26 ABG pO2 64 mmHg (85-104) L 01/24/19 04:39 ABG HCO3 17 mEq/L (21-27) L 01/24/19 04:39 ABG Total CO2 18 mEq/L (20-26) L 01/24/19 04:39 ABG O2 Saturation 87 % (95-98) L 01/24/19 04:39 ABG Base Excess -10 mEq/L (-2 to 3) L 01/24/19 04:39 Sodium 130 mEq/L (136-145) L 01/24/19 03:50 Potassium 5.4 mEq/L (3.5-5.1) H 01/20/19 20:00 Chloride 110 mEq/L (98-107) H 01/21/19 04:00 Carbon Dioxide 17 mEq/L (23-29) L 01/24/19 03:50 BUN 80 mg/dL (8-23) H 01/24/19 03:50 3.36 mg/dL (0.70-1.30) H 01/24/19 03:50 Est GFR ( Amer) 22 (> 60) L 01/24/19 03:50 Est GFR (Non-Af Amer) 18 (> 60) L 01/24/19 03:50 28 (6-26) H 01/21/19 14:00 Glucose 184 mg/dL (70-105) H 01/24/19 03:50 POC Glucose 257 mg/dL (70-99) H 01/23/19 19:31 6.2 % (-5.6) H 01/07/19 08:46 306 (280-300) H 01/23/19 04:51 Lactic Acid 2.4 mmol/L (0.5-2.2) H 01/10/19 00:14 Calcium 8.2 mg/dL (8.6-10.3) L 01/21/19 14:00 Venous Ioniz Calcium 1.08 mmol/L (1.15-1.35) L 01/11/19 04:14 Phosphorus 5.8 mg/dL (2.7-4.5) H 01/24/19 03:50 Iron < 10 mcg/dL (65-175) L 01/18/19 05:40 98 mg/dL (203-362) L 01/18/19 05:40 AST 9 Units/L (13-39) L 01/12/19 11:21 23 Units/L (30-223) L 01/23/19 04:51 167 mg/L (Less than 10) H 01/17/19 04:20 B-Natriuretic Peptide 300 pg/mL (Less than 100) H 01/09/19 15:18 4.4 g/dL (6.4-8.9) L 01/12/19 11:21 3.0 g/dL (3.5-5.7) L 01/21/19 14:00 2.1 g/dL (2.4-3.5) L 01/12/19 11:21 11.5 mg/dL (17.0-34.0) L 01/17/19 04:20 Triglycerides 179 mg/dL (< 150) H 01/10/19 04:15 6 Units/L (11-82) L 01/07/19 08:46 2.14 ng/mL (0.00-0.15) H 01/16/19 16:09 Turbid (Clear) A 01/22/19 10:50 Ur Specific [place] 1.026 (1.010-1.025) H 01/22/19 10:50 >=300 mg/dL (Neg-Trace) H 01/22/19 10:50 Trace mg/dL (Negative) H 01/22/19 10:50 Large (Negative) H 01/22/19 10:50 Ur Leukocyte Esterase Moderate (Negative) H 01/22/19 10:50 3-5 per hpf (0-3) H 01/22/19 10:50 15-30 per hpf (0-3) H 01/22/19 10:50 Ur Squamous Epith Cells Many per lpf (None-Few) H 01/07/19 11:03 Amorphous Sediment Moderate (Few) H 01/22/19 10:50 Many per hpf (None-Few) H 01/07/19 11:03 Ur Culture Indicated? YES (NO) A 01/22/19 10:50 Fluid Appearance Cloudy (Clear) A 01/19/19 08:30 Positive (Negative) A 01/17/19 08:42 Vancomycin Trough 28 mcg/mL (5-10) H 01/22/19 12:47 Crossmatch See Detail 01/17/19 12:25 - Microbiology Findings Microbiology Findings: Microbiology, Last 48 Hours 01/22/19 10:50 Urine Culture - Final Urine,Clean Catch No growth. 01/18/19 14:00 Wound Culture - Final Abdomen Enterococcus faecalis Yeast Species 01/17/19 01:30 Wound Culture - Final Abdomen Group G Streptococcus Enterococcus faecalis Deirdre albicans 01/19/19 08:30 Respiratory Culture - Final Right Middle Lobe Lung 01/18/19 14:00 Anaerobic Culture - Preliminary Aspirate At this time, no anaerobic growth is present. The culture will be finalized after 5 days of incubation. - Clinical Findings Intake & Output: Intake & Output 01/23/19 01/23/19 01/24/19 15:59 23:59 07:59 Intake Total 350 / 2345.2 1215.2 / 2345.2 270 / 270 Output Total 310 / 918 400 / 918 225 / 225 Balance 40 / 1427.2 815.2 / 1427.2 45 / 45 Weight 109.6 kg Consult Discharge Plan - Plan Referrals: Ranjit Rodriguez MD [Primary Care Provider] -
--- NOTE | 2019-01-24 07:03 | Pulmonology Progress Note ---
Date of Encounter: 01/24/19 Time of Encounter: 07:00 Assessment and Plan (1) Acute respiratory failure with hypoxia Current Visit: Yes Status: Acute Patient with acute respiratory failure with hypoxia with significant V/Q mismatch complicated by pneumonia and hydrostatic pulmonary edema is almost sounded 18 L of fluid overloaded for the whole hospital stay expected to improve after CVVH DF. Reduce FiO2 to 60%. (2) Pneumonia Current Visit: Yes Status: Acute To cover with broad-spectrum antibiotics . Appreciate infectious disease input. Qualifiers: Qualified Code(s): J18.9 - Pneumonia, unspecified organism (3) Septic shock Current Visit: Yes Status: Acute patient is off vasopressors recovering from septic shock still patient blood pressure is borderline be needing vasopressor therapy during continuous renal replacement therapy (4) TONO (acute kidney injury) Current Visit: Yes Status: Acute It looks like Sepsis induced acute kidney injury will monitor patient is going on continuous renal replacement therapy (5) Encephalopathy Current Visit: Yes Status: Acute Patient has significant encephalopathy with a background of small vessel ischemic disease with some cerebral atrophy now with a toxic/metabolic encephalopathy (6) DVT prophylaxis Current Visit: Yes Status: Acute Continue the current regimen. Subjective Principal diagnosis: Postop colectomy and colostomy Interval history: Patient developed Postoperative acute hypoxic respiratory failure most likely due to pneumonia with septic shock now with sepsis induced acute kidney injury needing repair replacement therapy. No acute events overnight noted. Objective PUL Vital signs: Last Vital Signs Temp 96.6 F L 01/24/19 04:00 Pulse 67 01/24/19 06:00 Resp 24 01/24/19 06:00 BP 103/53 01/24/19 06:00 Pulse Ox 94 01/24/19 06:00 General appearance: no acute distress Eyes: nonicteric ENT: oropharynx moist Effort: mildly labored Auscultation: bilateral: rhonchi Cardiovascular: regular rate and rhythm Gastrointestinal: hypoactive bowel sounds Extremities: no cyanosis, edema, anasarca unable to assess due to mental status Ventilator Settings Ventilator Settings: Ventilator Settings, Last 8 Hours Ventilator Tidal Volume 550 Setting Ventilator Tidal Volume 550 Setting Ventilator Tidal Volume 550 Setting Ventilator Tidal Volume 550 Setting Ventilator Tidal Volume 550 Setting Ventilator Tidal Volume 550 Setting Ventilator Tidal Volume 550 Setting Ventilator Tidal Volume 550 Setting Ventilator Tidal Volume 550 Setting Ventilator Tidal Volume 550 Setting Ventilator Tidal Volume 550 Setting Ventilator Tidal Volume 550 Setting Ventilator Tidal Volume 550 Setting Ventilator Tidal Volume 500 Setting Ventilator Respiratory Rate 24 Setting Ventilator Respiratory Rate 24 Setting Ventilator Respiratory Rate 24 Setting Ventilator Respiratory Rate 24 Setting Ventilator Respiratory Rate 24 Setting Ventilator Respiratory Rate 24 Setting Ventilator Respiratory Rate 24 Setting Ventilator Respiratory Rate 24 Setting Ventilator Respiratory Rate 24 Setting Ventilator Respiratory Rate 24 Setting Ventilator Respiratory Rate 24 Setting Ventilator Respiratory Rate 24 Setting Ventilator Respiratory Rate 24 Setting Actual Respiratory Rate 24 Actual Respiratory Rate 24 Actual Respiratory Rate 24 Actual Respiratory Rate 24 Actual Respiratory Rate 24 Actual Respiratory Rate 24 Actual Respiratory Rate 24 Actual Respiratory Rate 26 Actual Respiratory Rate 32 Actual Respiratory Rate 24 Actual Respiratory Rate 24 Positive End Expiratory 5 Pressure Positive End Expiratory 5 Pressure Positive End Expiratory 5 Pressure Positive End Expiratory 5 Pressure Positive End Expiratory 5 Pressure Positive End Expiratory 5 Pressure Positive End Expiratory 5 Pressure Positive End Expiratory 5 Pressure Positive End Expiratory 5 Pressure Positive End Expiratory 5 Pressure Positive End Expiratory 5 Pressure Positive End Expiratory 5 Pressure Positive End Expiratory 5 Pressure Peak Inspiratory Airway 33 Pressure Peak Inspiratory Airway 33 Pressure Peak Inspiratory Airway 32 Pressure Peak Inspiratory Airway 32 Pressure Peak Inspiratory Airway 34 Pressure Peak Inspiratory Airway 32 Pressure Peak Inspiratory Airway 32 Pressure Peak Inspiratory Airway 38 Pressure Peak Inspiratory Airway 32 Pressure Peak Inspiratory Airway 32 Pressure Peak Inspiratory Airway 35 Pressure Results - Laboratory Findings CBC and BMP: 01/24/19 03:50 01/24/19 03:50 ABG ABG pH 7.21 pH Units (7.32-7.45) L 01/24/19 04:39 ABG pCO2 42 mmHg (35-45) 01/24/19 04:39 ABG pO2 64 mmHg (85-104) L 01/24/19 04:39 ABG O2 Saturation 87 % (95-98) L 01/24/19 04:39 PT/INR, D-dimer PT 15.5 Seconds (9.4-12.1) H 01/14/19 17:30 Abnormal lab findings: Abnormal lab results WBC 13.7 K/mcL (4.3-11.1) H 01/24/19 03:50 RBC 2.92 M/mcL (4.19-5.50) L 01/24/19 03:50 Hgb 8.2 g/dL (12.9-16.9) L 01/24/19 03:50 Hct 27.0 % (37.5-50.1) L 01/24/19 03:50 MCH 27.9 pg (28.0-33.3) L 01/23/19 04:51 MCHC 30.4 g/dL (31.6-35.5) L 01/24/19 03:50 RDW 18.4 % (11.5-14.5) H 01/24/19 03:50 Plt Count 499 K/mcL (140-400) H 01/20/19 04:25 10.0 % (0-4) H 01/24/19 03:50 2.0 % (0) H 01/24/19 03:50 4.0 % (0) H 01/16/19 05:12 12.3 K/mcL (1.6-8.9) H 01/24/19 03:50 0.3 K/mcL (0.6-4.6) L 01/24/19 03:50 1.8 K/mcL (0.0-1.3) H 01/19/19 03:44 Nucleated RBCs/100 WBC 0.2 /100 WBC (0) H 01/24/19 03:50 Present (Not Present) A 01/21/19 04:00 Increased (Normal) H 01/20/19 04:25 Present (Not Present) A 01/13/19 04:00 1+ (Not Present) A 01/23/19 04:51 Present (Not Present) A 01/24/19 03:50 1+ (Not Present) A 01/24/19 03:50 Present (Not Present) A 01/13/19 04:00 1+ (Not Present) A 01/11/19 03:45 1+ (Not Present) A 01/11/19 03:45 ESR >= 130 mm/hr (0-10) H 01/17/19 04:20 PT 15.5 Seconds (9.4-12.1) H 01/14/19 17:30 APTT 23.2 Seconds (26.0-36.0) L D 01/14/19 17:30 Heparin Anti-Xa, Unfract 0.00 IU/mL (0.30-0.70) L 01/14/19 17:30 ABG pH 7.21 pH Units (7.32-7.45) L 01/24/19 04:39 ABG pCO2 46 mmHg (35-45) H 01/23/19 05:26 ABG pO2 64 mmHg (85-104) L 01/24/19 04:39 ABG HCO3 17 mEq/L (21-27) L 01/24/19 04:39 ABG Total CO2 18 mEq/L (20-26) L 01/24/19 04:39 ABG O2 Saturation 87 % (95-98) L 01/24/19 04:39 ABG Base Excess -10 mEq/L (-2 to 3) L 01/24/19 04:39 Sodium 130 mEq/L (136-145) L 01/24/19 03:50 Potassium 5.4 mEq/L (3.5-5.1) H 01/20/19 20:00 Chloride 110 mEq/L (98-107) H 01/21/19 04:00 Carbon Dioxide 17 mEq/L (23-29) L 01/24/19 03:50 BUN 80 mg/dL (8-23) H 01/24/19 03:50 3.36 mg/dL (0.70-1.30) H 01/24/19 03:50 Est GFR ( Amer) 22 (> 60) L 01/24/19 03:50 Est GFR (Non-Af Amer) 18 (> 60) L 01/24/19 03:50 28 (6-26) H 01/21/19 14:00 Glucose 184 mg/dL (70-105) H 01/24/19 03:50 POC Glucose 257 mg/dL (70-99) H 01/23/19 19:31 6.2 % (-5.6) H 01/07/19 08:46 306 (280-300) H 01/23/19 04:51 Lactic Acid 2.4 mmol/L (0.5-2.2) H 01/10/19 00:14 Calcium 8.2 mg/dL (8.6-10.3) L 01/21/19 14:00 Venous Ioniz Calcium 1.08 mmol/L (1.15-1.35) L 01/11/19 04:14 Phosphorus 5.8 mg/dL (2.7-4.5) H 01/24/19 03:50 Iron < 10 mcg/dL (65-175) L 01/18/19 05:40 98 mg/dL (203-362) L 01/18/19 05:40 AST 9 Units/L (13-39) L 01/12/19 11:21 23 Units/L (30-223) L 01/23/19 04:51 167 mg/L (Less than 10) H 01/17/19 04:20 B-Natriuretic Peptide 300 pg/mL (Less than 100) H 01/09/19 15:18 4.4 g/dL (6.4-8.9) L 01/12/19 11:21 3.0 g/dL (3.5-5.7) L 01/21/19 14:00 2.1 g/dL (2.4-3.5) L 01/12/19 11:21 11.5 mg/dL (17.0-34.0) L 01/17/19 04:20 Triglycerides 179 mg/dL (< 150) H 01/10/19 04:15 6 Units/L (11-82) L 01/07/19 08:46 2.14 ng/mL (0.00-0.15) H 01/16/19 16:09 Turbid (Clear) A 01/22/19 10:50 Ur Specific [place] 1.026 (1.010-1.025) H 01/22/19 10:50 >=300 mg/dL (Neg-Trace) H 01/22/19 10:50 Trace mg/dL (Negative) H 01/22/19 10:50 Large (Negative) H 01/22/19 10:50 Ur Leukocyte Esterase Moderate (Negative) H 01/22/19 10:50 3-5 per hpf (0-3) H 01/22/19 10:50 15-30 per hpf (0-3) H 01/22/19 10:50 Ur Squamous Epith Cells Many per lpf (None-Few) H 01/07/19 11:03 Amorphous Sediment Moderate (Few) H 01/22/19 10:50 Many per hpf (None-Few) H 01/07/19 11:03 Ur Culture Indicated? YES (NO) A 01/22/19 10:50 Fluid Appearance Cloudy (Clear) A 01/19/19 08:30 Positive (Negative) A 01/17/19 08:42 Vancomycin Trough 28 mcg/mL (5-10) H 01/22/19 12:47 Crossmatch See Detail 01/17/19 12:25 - Microbiology Findings Microbiology Findings: Microbiology, Last 48 Hours 01/22/19 10:50 Urine Culture - Final Urine,Clean Catch No growth. 01/18/19 14:00 Wound Culture - Final Abdomen Enterococcus faecalis Yeast Species 01/17/19 01:30 Wound Culture - Final Abdomen Group G Streptococcus Enterococcus faecalis Deirdre albicans 01/19/19 08:30 Respiratory Culture - Final Right Middle Lobe Lung 01/18/19 14:00 Anaerobic Culture - Preliminary Aspirate At this time, no anaerobic growth is present. The culture will be finalized after 5 days of incubation. - Clinical Findings Intake & Output: Intake & Output 01/23/19 01/23/19 01/24/19 15:59 23:59 07:59 Intake Total 350 / 2345.2 1215.2 / 2345.2 270 / 270 Output Total 310 / 918 400 / 918 225 / 225 Balance 40 / 1427.2 815.2 / 1427.2 45 / 45 Weight 109.6 kg Consult Discharge Plan - Plan Referrals: Ranjit Rodriguez MD [Primary Care Provider] - Critical Care Time Critical Care Time: Yes Total Critical Care Time: 45 Attestation: I I spent 45 minutes of Critical Care time with this patient. It involved decision making of high complexity to assess, manipulate, and support vital organ system failure and/or to prevent further life threatening deterioration of the patient's condition. The time involved in the performance of separately reportable procedures was not counted toward critical care time.
--- NOTE | 2019-01-24 07:55 | AcuteCareSurgery Progress Note ---
<Lu Calix - Last Filed: 01/24/19 11:43> Date of Encounter: 01/24/19 Time of Encounter: 07:54 - Assessment and Plan (1) Colon obstruction Current Visit: Yes Status: Acute Status post laparotomy with lysis of adhesions, unavoidable enterotomy, takedown colostomy, left colon resection, transverse colostomy, small bowel resection wi th primary anastomosis day 16 Status post interventional radiology CT-guided abdominal abscess drainage with drains placed 2. Purulent fluid removed. 01/18/19 CT abdomen and pelvis 01/20/19- Right lower lobe pneumonia, dense consolidation left lung base, and abdomen no new focal fluid collections, extensive edema, ascites and complex fluid are stable since prior. Mild wall thickening of the bowel without pneumatosis, complex fluid and air within the midline and left lower quadrant incision sites. Remains intubated, sedated Continue Levophed for pressure support Fever has resolved however patient now hypothermic at 96.3 Leukocytosis has increased, currently 13.7 Wound culture positive for group G Streptococcus, enterococcus faecalis, ismael albicans Right middle lobe lung - respiratory culture shows many WBC, bacteria, few gram- positive cocci, few yeast. No acid fast bacilli. Fungal culture remains pending Aspirate-anaerobic culture shows no growth to date and fungal cultures pending Blood cultures negative Urine culture negative Antibiotic coverage-cefepime, clindamycin, diflucan, linezolid. Nutrition-TPN. Tube feeds discontinued after 2 episodes of emesis overnight. Renal function has continued to decline, nephrology has been consulted. +22 L currently, and temporary dialysis catheter placed yesterday. Continue monitoring output of colostomy Continue monitoring output of FARIDA drains x2 - scant serous drainage, 7 ml and 5 ml Continue wound care, daily dressing and packing changes (2) Sepsis Current Visit: Yes Status: Acute Leukocytosis has resolved, afebrile, days to have tachypnea, hypotension requiring pressor support - CT abdomen and pelvis 01/20/19-new extensive right lower lobe airspace disease with trace right pleural effusion suggesting new right lower lobe pneumonia, persistent dense consolidation and pleural effusion the left lung base. 2 percutaneous drainage catheters left abdomen with resolution of previously seen focal fluid collections, extensive edema, ascites, and complex fluid in the abdomen pelvis which is stable to prior, mild wall thickening of the bowel with no evidence of pneumatosis, possible dehiscent anterior abdominal wall wounds with skin wilmar but complex fluid and air within the midline and left lower quadrant incision sites. Secondary to ischemic bowel, purulent intrabdominal abscess x2, pneumonia, aspiration Antibiotic coverage currently includes cefepime, clindamycin, Diflucan, linezolid Management per primary Qualifiers: Sepsis type: Streptococcus, other Qualified Code(s): A40.8 - Other streptococcal sepsis (3) Acute respiratory failure with hypoxia Current Visit: Yes Status: Acute Patient intubated, sedated in the ICU Continue respiratory support ICU team to manage vent (4) TONO (acute kidney injury) Current Visit: Yes Status: Acute Patient sustained TONO, secondary to hypotension, sepsis, possibly secondary to vancomycin Renal function continues to decline A temp dialysis catheter was placed yesterday Management per nephrology (5) DVT prophylaxis Current Visit: Yes Status: Acute SCDs Subjective Narrative: Patient seen and examined at bedside today. He remains intubated, sedated, requiring pressors in the ICU. Patient had 2 episodes of emesis, suspected to be tube feeds yesterday, tube feeding has been discontinued. Patient continues to have worsening renal function, nephrology has been consulted for management. Objective Vital Signs - Last 8 Hours Temp Pulse Resp BP Pulse Ox 01/24/19 07:00 73 24 113/52 94 01/24/19 06:00 67 24 103/53 94 01/24/19 05:36 24 94/49 93 01/24/19 05:00 63 24 94/49 93 01/24/19 04:00 96.6 F L 63 24 91/48 93 01/24/19 03:48 24 97/49 93 01/24/19 03:00 63 24 90/48 93 01/24/19 02:00 62 24 94/49 94 01/24/19 01:40 26 68/56 93 01/24/19 01:00 64 32 68/56 93 01/24/19 00:00 68 24 112/54 94 Intake and Output 01/23/19 01/23/19 01/24/19 15:59 23:59 07:59 Intake Total 350 / 2345.2 1215.2 / 2345.2 270 / 270 Output Total 310 / 918 400 / 918 225 / 225 Balance 40 / 1427.2 815.2 / 1427.2 45 / 45 Intake: IV Fluids 350 / 2335.2 1215.2 / 2335.2 270 / 270 PRECEDEX Premix 400 mcg In 100 100 / 400 200 / 400 100 / 100 ml @ 0.2 MCG/KG/HR 4.65 mls/hr IVC .[id number] [facility] Rx#:[id number] FentaNYL (PF) 1,000 MCG In 0.9 100 / 300 100 / 300 % Sodium Chloride 80 ML @ 50 MCG/HR 5 mls/hr IVC CONT [facility] Rx #:[id number] Levophed 8 MG In Dextrose 5% 145.2 / 145.2 250 ML @ 8 MCG/MIN 15.48 mls/hr IVC CONT [facility] Rx#:[id number] Diprivan 1,000 mg In 100 ml @ 5 100 / 500 200 / 500 100 / 100 MCG/KG/MIN 2.859 mls/hr IVC . Q24H [facility] Rx#:[id number] Maxipime 2,000 MG In Water for 20 / 40 20 / 20 inj. (sterile) 20 ML @ 300 mls/ hr IVP Q12H [facility] Rx#:[id number] Cleocin Premix 600 MG/50 ML 600 50 / 150 50 / 150 50 / 50 mg In 50 ml @ 50 mls/hr IVPB Q8HR [facility] Rx#:[id number] Diflucan Premix 400 MG/200 ML 200 / 200 400 mg In 200 ml @ 200 mls/hr IVPB DAILY [facility] Rx#:[id number] Zyvox Premix 600mg/300mL 600 mg 300 / 600 In 300 ml @ 150 mls/hr IVPB Q12HR [facility] Rx#:[id number] Output: Stool 0 / 0 Catheter 300 / 900 400 / 900 225 / 225 Gastric Drainage 0 / 0 Wound Drainage 18 0 / 18 0 / 0 Left Abd, FARIDA # 2 0 / 8 0 / 0 Left Abd, FARIDA #1 0 / 10 0 / 0 Other: Weight 109.6 kg Blood Glucose* 260 257 173 Patient Weight 01/24/19 23:59 Weight 109.6 kg - General physical appearance no distress, other (Intubated, sedated, on pressure support) - Eyes PERRL - ENT normal nares, dry mucosa - Neck Neck exam: trachea midline, no venous distension - Respiratory normal expansion, normal respiratory effort, other (Rhonchi and coarse breath sounds bilaterally, unchanged from previous) - Cardiovascular Cardiovascular exam: Present: RRR, no murmurs/rubs/gallops. Absent: JVD - Abdomen Abdomen: Present: bowel sounds present, soft, non tender, distended (Moderately). Absent: guarding, rebound - Incision Incision: Present: clean and dry (Packing in place, minimal drainage noted on dressing. FARIDA drains [address], scant serous drainage. G-tube remains in place. Colostomy is pink, well-perfused, liquid stool output present), intact. Absent: erythema - Integumentary no rash, other ([place]) - Neurologic other (Intubated, sedated, unable to assess. No gag reflex) - Musculoskeletal normal posture - Psychiatric other (Intubated, sedated, unable to assess.) - Labs 01/24/19 03:50 01/24/19 03:50 Diabetes panel 01/23/19 01/24/19 Range/Units 04:51 03:50 Sodium 134 L 130 L (136-145) mEq/L Potassium 3.9 3.9 (3.5-5.1) mEq/L Chloride 104 102 (98-107) mEq/L Carbon Dioxide 18 L 17 L (23-29) mEq/L BUN 68 H 80 H (8-23) mg/dL Creatinine 2.99 H 3.36 H (0.70-1.30) mg/dL Glucose 240 H 184 H (70-105) mg/dL Calcium 8.6 8.8 (8.6-10.3) mg/dL Calcium panel 01/23/19 01/24/19 Range/Units 04:51 03:50 Calcium 8.6 8.8 (8.6-10.3) mg/dL Phosphorus 5.5 H 5.8 H (2.7-4.5) mg/dL Pituitary panel 01/23/19 01/24/19 Range/Units 04:51 03:50 Sodium 134 L 130 L (136-145) mEq/L Potassium 3.9 3.9 (3.5-5.1) mEq/L Chloride 104 102 (98-107) mEq/L Carbon Dioxide 18 L 17 L (23-29) mEq/L BUN 68 H 80 H (8-23) mg/dL Creatinine 2.99 H 3.36 H (0.70-1.30) mg/dL Glucose 240 H 184 H (70-105) mg/dL Calcium 8.6 8.8 (8.6-10.3) mg/dL Adrenal panel 01/23/19 01/24/19 Range/Units 04:51 03:50 Sodium 134 L 130 L (136-145) mEq/L Potassium 3.9 3.9 (3.5-5.1) mEq/L Chloride 104 102 (98-107) mEq/L Carbon Dioxide 18 L 17 L (23-29) mEq/L BUN 68 H 80 H (8-23) mg/dL Creatinine 2.99 H 3.36 H (0.70-1.30) mg/dL Glucose 240 H 184 H (70-105) mg/dL Calcium 8.6 8.8 (8.6-10.3) mg/dL Consult Discharge Plan - Plan Referrals: Ranjit Rodriguez MD [Primary Care Provider] - <Jose Martinez - Last Filed: 01/24/19 14:55> Date of Encounter: 01/24/19 - Assessment and Plan (1) Colon obstruction Current Visit: Yes Status: Acute Objective Vital Signs - Last 8 Hours Temp Pulse Resp BP Pulse Ox 01/24/19 14:00 70 28 107/51 90 01/24/19 13:48 29 138/57 91 01/24/19 13:00 73 28 138/57 91 01/24/19 12:00 97.3 F L 74 28 109/51 91 01/24/19 11:00 66 28 95/54 89 01/24/19 10:00 67 28 99/51 89 01/24/19 09:50 28 99/59 89 01/24/19 09:00 69 24 114/54 95 01/24/19 08:53 96.3 F L 01/24/19 08:00 74 24 111/50 94 01/24/19 07:25 24 113/51 94 01/24/19 07:00 73 24 113/52 94 Intake and Output 01/23/19 01/24/19 01/24/19 23:59 07:59 15:59 Intake Total 1215.2 / 2345.2 570 / 1345 775 / 1345 Output Total 400 / 918 225 / 1104 879 / 1104 Balance 815.2 / 1427.2 345 / 241 -104 / 241 Intake: IV Fluids 1215.2 / 2335.2 570 / 1345 775 / 1345 PRECEDEX Premix 400 mcg In 100 200 / 400 100 / 227 127 / 227 ml @ 0.2 MCG/KG/HR 4.65 mls/hr IVC .[id number] [facility] Rx#:[id number] FentaNYL (PF) 1,000 MCG In 0.9 100 / 300 150 / 150 % Sodium Chloride 80 ML @ 50 MCG/HR 5 mls/hr IVC CONT [facility] Rx #:[id number] Levophed 8 MG In Dextrose 5% 145.2 / 145.2 83 / 83 250 ML @ 8 MCG/MIN 15.48 mls/hr IVC CONT [facility] Rx#:[id number] Diprivan 1,000 mg In 100 ml @ 5 200 / 500 100 / 265 165 / 265 MCG/KG/MIN 2.859 mls/hr IVC . Q24H [facility] Rx#:[id number] Maxipime 2,000 MG In Water for 20 / 40 20 / 20 inj. (sterile) 20 ML @ 300 mls/ hr IVP Q12H [facility] Rx#:[id number] Cleocin Premix 600 MG/50 ML 600 50 / 150 50 / 100 50 / 100 mg In 50 ml @ 50 mls/hr IVPB Q8HR [facility] Rx#:[id number] Diflucan Premix 400 MG/200 ML 200 / 200 200 / 200 400 mg In 200 ml @ 200 mls/hr IVPB DAILY [facility] Rx#:[id number] Zyvox Premix 600mg/300mL 600 mg 300 / 600 300 / 300 In 300 ml @ 150 mls/hr IVPB Q12HR [facility] Rx#:[id number] Output: Stool 350 / 350 Catheter 400 / 900 225 / 740 515 / 740 Wound Drainage 0 18 0 / 12 12 / 12 Left Abd, FARIDA # 2 0 / 8 0 / 7 7 / 7 Left Abd, FARIDA #1 0 / 10 0 / 5 5 / 5 Fluid Removed by Prismaflex 2 / 2 Other: Weight 109.6 kg 109.6 kg Blood Glucose* 257 173 158 Patient Weight 01/24/19 23:59 Weight 109.6 kg - Labs 01/24/19 03:50 01/24/19 03:50 Diabetes panel 01/24/19 Range/Units 03:50 Sodium 130 L (136-145) mEq/L Potassium 3.9 (3.5-5.1) mEq/L Chloride 102 (98-107) mEq/L Carbon Dioxide 17 L (23-29) mEq/L BUN 80 H (8-23) mg/dL Creatinine 3.36 H (0.70-1.30) mg/dL Glucose 184 H (70-105) mg/dL Calcium 8.8 (8.6-10.3) mg/dL Calcium panel 01/24/19 Range/Units 03:50 Calcium 8.8 (8.6-10.3) mg/dL Phosphorus 5.8 H (2.7-4.5) mg/dL Pituitary panel 01/24/19 Range/Units 03:50 Sodium 130 L (136-145) mEq/L Potassium 3.9 (3.5-5.1) mEq/L Chloride 102 (98-107) mEq/L Carbon Dioxide 17 L (23-29) mEq/L BUN 80 H (8-23) mg/dL Creatinine 3.36 H (0.70-1.30) mg/dL Glucose 184 H (70-105) mg/dL Calcium 8.8 (8.6-10.3) mg/dL Adrenal panel 01/24/19 Range/Units 03:50 Sodium 130 L (136-145) mEq/L Potassium 3.9 (3.5-5.1) mEq/L Chloride 102 (98-107) mEq/L Carbon Dioxide 17 L (23-29) mEq/L BUN 80 H (8-23) mg/dL Creatinine 3.36 H (0.70-1.30) mg/dL Glucose 184 H (70-105) mg/dL Calcium 8.8 (8.6-10.3) mg/dL - Attending Attestation patient seen and examined. i have reviewed all labs, imaging, and notes. i have discussed the case in detail with the resident. i agree with the above assessment and plan and wish to add the following... wean pressors wean vent cont IV abx and supportive care
[2019-01-24] MEDS: Chlorhexidine Rinse 15 ML MOUTHWASH MM SCH ×2 (08:11→21:17)
[2019-01-24] MEDS: Pantoprazole 40 MG VIAL IVP SCH (08:11)
[2019-01-24] MEDS: *HR* Heparin 5,000 UNIT/ML VIAL SQ SCH (08:11)
[2019-01-24] MEDS: Insulin DETEMIR 100 UNIT/ML X5UNITS SQ SCH (08:12)
[2019-01-24] MEDS: Fluconazole 400 MG/200 ML 400 MG/200 ML BAG IVPB SCH (08:12)
[2019-01-24] MEDS: Clindamycin 600 MG/50 ML 600 MG/50 ML IV.SOLN IVPB SCH ×3 (08:13→23:20)
[2019-01-24] MEDS: *HR* Amiodarone 200 MG TABLET PO SCH (08:14)
[2019-01-24] MEDS: Dorzolamide/Timolol 1 DROP RIGHT EYE SCH ×2 (08:21→21:17)
--- NOTE | 2019-01-24 09:22 | Infectious Disease Progress No ---
ID Progress Note Date of Encounter: 01/24/19 Time of Encounter: 11:45 - Subjective Subjective: The patient is intubated and sedated at time of examination. He is not responsive to verbal or physical stimuli. According to the patient's nursing staff he had no acute complaints overnight. He does remain afebrile at this time. He apparently was able to be titrated down from his vasopressors overnight, however he is eating started on CVVHD today, and in preparation his nurse has been up a little bit to prevent hypotension. His nurse says that he was unable to tolerate his tube feeds overnight. - Objective CBC & Chem 7: 01/26/19 04:25 01/26/19 04:25 - Line Documentation Line Documentation: PICC Line (Right upper extremity) - Exam Vitals: Temp Pulse Resp BP Pulse Ox 96.3 F L 74 24 111/50 94 01/24/19 08:53 01/24/19 08:00 01/24/19 08:00 01/24/19 08:00 01/24/19 08:00 Exam: Gen: Vitals noted. Sedated and intubated. Eyes: anicteric sclerae, moist conjunctivae HENT: Atraumatic; oropharynx clear, ET tube in place, no maceration is noted around tube. There are copious oral secretions Neck: Trachea midline; supple, no thyromegaly or lymphadenopathy Cardiac: RRR, +S1/S2 present, no murmurs, rubs or gallops Pulmonary: Significant rhonchi and wheezing noted throughout both lungs, however modest improvement from yesterday's exam Abdomen: soft, No HSM. There is dressing in place over the site of prior operation. PEG in place with surrounding dressing. FARIDA in place x2 with brown fluid return. MSK: ROM intact, no joint swelling noted Extremities: 3+ BLE edema, nontender calf, no cyanosis or clubbing. Edema noted in upper extremities B/L as well Skin: Normal temperature, turgor and texture; no rash, ulcers or subcutaneous nodules Neuro: Sedated, ventilated. - Assessment and Plan (1) Sepsis Current Visit: Yes Status: Acute The patient had three SIRS criteria. Likely secondary to intra-abdominal fluid collections and possible aspiration PNA. WBC continues to trend up, Recurrent bandemia with Fever and tachycardia Blood cultures drawn 01/09/19 are negative x 2 sets. Repeat blood cultures drawn 01/11/19 are NGTD x [address] Chest 01/16 shows bilateral pleural effusions with associated dependent upper and lower lobe airspace disease including consolidation, atelectasis and/or pna CT Abd/pelv 01/16 small peritoneal air possibly post-surgical, mild small bowel loops, gas within the nondependent urinary bladder which may relate due to recent instrumentation Cultures 01/18/19 wound culture positive for Enterococcus faecalis and yeast species 01/17/19 wound culture positive for Group G strep, Enterococcus faecalis and yeast species Antibiotics Cefepime 2g q12h Clindamycin 600mg IV q8h Zyvox 600mg IV q12h Diflucan 400mg IV Daily Recommendations -Continue current antibiotic regimen, duration of treatment depends on clinical course -Continues to show drop in Bandemia, and clinical couse seems to show modest improvement -Management of vent per pulmonology Qualifiers: Sepsis type: sepsis due to unspecified organism Qualified Code(s): A41.9 - Sepsis, unspecified organism SNOMED Code(s): 48471382 (2) Pneumonia Current Visit: Yes Status: Acute Pneumonia secondary to aspiration CT abdomen and pelvis 01/20/19 shows new extensive right lower airspace pneumonia Patient has been septic with worsening bandemia and worsening respiratory failure According to nursing staff also has purulent secretion from Vent Continue antibiotic treatment as above Qualifiers: Pneumonia type: aspiration pneumonia Aspiration pneumonia type: due to vomit Laterality: unspecified laterality Lung location: unspecified part of lung Qualified Code(s): J69.0 - Pneumonitis due to inhalation of food and vomit SNOMED Code(s): 883244543 (3) Colostomy dysfunction Current Visit: Yes Status: Resolved Likely secondary to stenosis at colostomy site. Status post MARCY, unavoidable enterotomies, takedown colostomy and left colon resection, transverse colostomy, and SBR with primary anastamosis, and gastrostomy tube placement 01/08/[address] Cerda. Surgical site with foul-smelling drainage and wound dehiscence. Wound culture positive for GGS, Enterococcus faecalis, yeast Transitioning to Zyvox, fluconazole, cefepime, clindamycin SNOMED Code(s): 47652641 (4) Acute kidney injury superimposed on CKD Current Visit: Yes Status: Acute TONO on CKD3. Patient presented with elevated serum creatinine which worsened during stay. Creatinine continues to trend upward, will Dose-adjust medications and avoid nephrotoxins as able. Starting CVVHD today per nephrology SNOMED Code(s): 68653945 (5) Dysphagia Current Visit: Yes Status: Acute Dysphagia, patient has failed modified barium swallow. Unknown cause of patient's dysphagia at this time. CT Soft tissue neck was unrevealing for cause. Further workup and treatment per the primary team and ENT Qualifiers: Dysphagia type: oropharyngeal phase Qualified Code(s): R13.12 - Dysphagia, oropharyngeal phase SNOMED Code(s): 77124948, 779453232 (6) Abdominal pain Current Visit: Yes Status: Acute Abdominal pain, secondary to colostomy dysfunction initially, but now concern for intra-abdominal abscess. Management per primary team and acute care surgery Qualifiers: Abdominal location: generalized Qualified Code(s): R10.84 - Generalized abdominal pain SNOMED Code(s): 74632691 (7) Atrial fibrillation Current Visit: Yes Status: Chronic Management per primary team Qualifiers: Atrial fibrillation type: paroxysmal Qualified Code(s): I48.0 - Paroxysmal atrial fibrillation SNOMED Code(s): 47330089 (8) Diabetes Current Visit: Yes Status: Acute Per primary team Qualifiers: Diabetes mellitus type: type 2 Diabetes mellitus longterm insulin use: without manager intermediate use Diabetes mellitus complication status: without complication Qualified Code(s): E11.9 - Type 2 diabetes mellitus without complications SNOMED Code(s): 28848641 (9) Hydronephrosis, left Current Visit: No Status: Chronic SNOMED Code(s): 46016695 Consult Discharge Plan - Plan Referrals: Ranjit Rodriguez MD [Primary Care Provider] - - Attending Attestation I examined this patient and my medical decision-making was reviewed with the Resident Physician. I agree with the documented findings, disposition and treatment plan as described except to the extent set forth below. Assessment and plan: 1.Sepsis likely due to aspiration pneumonia plus intra abodminal process 2.Colostomy dysfunction 3.Dysphagia 4.Confusion 5.Encephalopathy 6.abdominal abscess: cultures positive for GGS, AmpS E faecalis and C albicans 7.Concern for aspiration pneumonia 8.Diabetes mellitus type 2 9.Atrial fibrillation 10.Acute kidney injury Recommendations: continue cefepime dose adjust based on CrCl continue clindamycin for aspiration d/c micafungin and vanco start zyvox and fluconazole duration of treatment depens on clinical picture
[2019-01-24] MEDS ORDERED: Calcium Gluconate 1gm/50mL 1 GM/50 ML BAG IVPB PRN ×2 (09:52)
[2019-01-24] MEDS ORDERED: *HR* Heparin 5,000 UNIT/ML VIAL IV PRN (09:52)
[2019-01-24] MEDS ORDERED: PrismaSATE BGK 4/2.5 5,000 ML CRRT SCH (10:00)
[2019-01-24] MEDS ORDERED: *HR* Heparin 5,000 UNIT/ML VIAL IVP PRN ×3 (10:16→10:44)
[2019-01-24] MEDS: FentaNYL (PF) 1,000 MCG in 0.9 % Sodium Chloride 80 ML IVC SCH ×2 (10:53→19:05)
[2019-01-24] MEDS ORDERED: *HR* Dextrose 50 % in Water (Syg) 50 ML SYRINGE IVP PRN (10:54)
[2019-01-24] MEDS: PrismaSATE BGK 4/2.5 5,000 ML CRRT SCH ×9 (12:50→23:18)
[2019-01-24] MEDS: Heparin 25,000 UNIT/250 ML D5W 25,000 UNIT/250 ML IV.SOLN IVC SCH (12:54)
[2019-01-24] MEDS: Insulin Human Regular 100 UNIT in 0.9 % Sodium Chloride 100 ML IVC SCH (13:24)
[2019-01-24] MEDS ORDERED: Clinimix 5%-20% SOLUTION 2,000 ML with MVI, adult with vitamin K 10 ML, Sodium Acetat... IVC SCH (17:00)
[2019-01-24] MEDS: Latanoprost 2.5 ML BOTTLE RIGHT EYE SCH (21:18)
[2019-01-24] MEDS: Norepinephrine 8 MG in D5% in Water 250 ML IVC SCH (22:27)
--- NOTE | 2019-01-24 23:55 | Nephrology Progress Note ---
Date of Encounter: 01/24/19 Time of Encounter: 12:00 - Assessment and Plan (1) Acute kidney injury superimposed on CKD Current Visit: Yes Status: Acute SCr continues to worsen at 3.36, GFR 18 UOP remains unimpressive at 900cc in the past 24hrs as significantly fluid overload Orders for CVVHDF plcae and discussed with nurse and pharm to start. Will start with even fluid balance and progress to negative fluid balance as tolerated with hemodynamic instability, continue pressor support Continue to avoid nephrotoxins if possible Condition very guarded Critical care time spent at least 35mins in coordination of care, orders etc (2) Acute respiratory failure with hypoxia Current Visit: Yes Status: Acute Vent management per primary team (3) Colostomy dysfunction Current Visit: Yes Status: Resolved Per surgery s/p revision (4) Septic shock Current Visit: Yes Status: Acute Per primary Subjective Principal diagnosis: Postop colectomy and colostomy Interval history: Pt seen and examined still intubated and sedated with family at bedside. Remains on pressor support Objective - Vital Signs Vital signs: Vital Signs Temp Pulse Resp BP Pulse Ox 01/24/19 23:41 28 91/50 91 01/24/19 23:12 62 01/24/19 23:00 62 28 99/52 90 01/24/19 22:00 65 28 103/49 91 01/24/19 21:49 28 103/49 91 01/24/19 21:00 67 28 120/54 91 01/24/19 20:00 95.9 F L 130 28 119/56 91 01/24/19 19:00 67 28 115/54 91 01/24/19 18:00 65 28 127/53 90 01/24/19 17:10 28 118/59 91 01/24/19 17:00 63 28 119/59 91 01/24/19 16:00 96.5 F L 65 28 113/54 92 01/24/19 15:30 28 112/56 92 01/24/19 15:00 69 29 113/55 92 01/24/19 14:00 70 28 107/51 90 01/24/19 13:48 29 138/57 91 01/24/19 13:00 73 28 138/57 91 01/24/19 12:00 97.3 F L 74 28 109/51 91 01/24/19 11:00 66 28 95/54 89 01/24/19 10:00 67 28 99/51 89 01/24/19 09:50 28 99/59 89 01/24/19 09:00 69 24 114/54 95 01/24/19 08:53 96.3 F L 01/24/19 08:00 74 24 111/50 94 01/24/19 07:25 24 113/51 94 01/24/19 07:00 73 24 113/52 94 01/24/19 06:00 67 24 103/53 94 01/24/19 05:36 24 94/49 93 01/24/19 05:00 63 24 94/49 93 01/24/19 04:00 96.6 F L 63 24 91/48 93 01/24/19 03:48 24 97/49 93 01/24/19 03:00 63 24 90/48 93 01/24/19 02:00 62 24 94/49 94 01/24/19 01:40 26 68/56 93 01/24/19 01:00 64 32 68/56 93 01/24/19 00:00 68 24 112/54 94 Intake and Output 01/24/19 01/24/19 01/24/19 07:59 15:59 23:59 Intake Total 570 / 2309.0 822.4 / 2309.0 916.6 / 2309.0 Output Total 225 / 2477 990 / 2477 1262 / 2477 Balance 345 / -168.0 -167.6 / -168.0 -345.4 / -168.0 Intake: IV Fluids 570 / 2223.0 822.4 / 2223.0 830.6 / 2223.0 PrismaSATE BGK 4/2.5 5,000 ML @ 0 / 0 1000 mls/hr CRRT CONT DANK Rx#: [id number] PRECEDEX Premix 400 mcg In 100 100 / 247 147 / 247 0 / 247 ml @ 0.2 MCG/KG/HR 4.65 mls/hr IVC .[id number] DANK Rx#:[id number] FentaNYL (PF) 1,000 MCG In 0.9 168 / 200 32 / 200 % Sodium Chloride 80 ML @ 50 MCG/HR 5 mls/hr IVC CONT DANK Rx #:[id number] Heparin 25,000 UNIT/250 ML D5W 112 / 112 25,000 unit In 250 ml @ 9.12 UNIT/KG/HR 9.996 mls/hr IVC . Q24H DANK Rx#:[id number] HumuLIN R 100 UNIT In 0.9 % 9.4 / 16.0 6.6 / 16.0 Sodium Chloride 100 ML @ 4.7 UNIT/HR 4.747 mls/hr IVC CONT DANK Rx#:[id number] Levophed 8 MG In Dextrose 5% 83 / 258 175 / 258 250 ML @ 8 MCG/MIN 15.48 mls/hr IVC CONT DANK Rx#:[id number] Diprivan 1,000 mg In 100 ml @ 5 100 / 400 165 / 400 135 / 400 MCG/KG/MIN 2.859 mls/hr IVC . Q24H DANK Rx#:[id number] Maxipime 2,000 MG In Water for 20 40 20 / 40 inj. (sterile) 20 ML @ 300 mls/ hr IVP Q12H DANK Rx#:[id number] Cleocin Premix 600 MG/50 ML 600 50 / 150 50 / 150 50 / 150 mg In 50 ml @ 50 mls/hr IVPB Q8HR DANK Rx#:[id number] Diflucan Premix 400 MG/200 ML 200 / 200 400 mg In 200 ml @ 200 mls/hr IVPB DAILY DANK Rx#:[id number] Zyvox Premix 600mg/300mL 600 mg 300 / 600 300 / 600 In 300 ml @ 150 mls/hr IVPB Q12HR DANK Rx#:[id number] Tube Feeding / Free Water Intake Amount 0 / 0 Output: Stool 350 / 350 Catheter 225 / 1038 545 / 1038 268 / 1038 Wound Drainage Left Abd, FARIDA # 2 Left Abd, FARIDA #1 Fluid Removed by Prismaflex 83 / 1072 989 / 1072 Other: Weight 109.6 kg 109.6 kg 109.6 kg Blood Glucose* 173 143 156 Patient Weight 01/24/19 23:59 Weight 109.6 kg - General Appearance General appearance: Present: sedated on ventilator, intubated EENT: Present: ATNC, mucous membranes moist Neck: Present: no JVD, supple Respiratory: Present: rhonchi (ant bilat) Cardiology: Present: edema (LE extending to abdomen), normal S1, normal S2 Dialysis Vascular Access: Venous Catheter (temp line) Gastrointestinal: Present: no tenderness, no guarding, distended Integumentary: Present: warm and dry Additional Comments: sedated Musculoskeletal: Present: no deformities Additional Comments: sedated - Lab 01/24/19 03:50 01/24/19 03:50 Consult Discharge Plan - Plan Referrals: Rodriguez,Ranjit Weston MD [Primary Care Provider] -
[2019-01-25] MEDS: FentaNYL (PF) 1,000 MCG in 0.9 % Sodium Chloride 80 ML IVC SCH ×4 (03:09→23:08)
[2019-01-25] MEDS: Artificial Tears SOLN 15 ML BOTTLE BOTH EYES SCH ×5 (03:14→20:39)
[2019-01-25] MEDS: Ipratropium/Albuterol Neb 3 ML IH SCH ×5 (03:26→20:17)
[2019-01-25 04:04] LABS: Calcium 8.4 mg/dL (8.6-10.3); Hematocrit 25.5 % (37.5-50.1); Mean Corpuscular HGB Conc 31.4 g/dL (31.6-35.5); Mean Corpuscular Hemoglobin 28.5 pg (28.0-33.3); Mean Corpuscular Volume 90.7 fL (83.0-100.0); Mean Platelet Volume 11.5 fL (9.4-12.4); Nucleated Red Blood Cells 0.4 /100 WBC (0); Phosphorous 2.2 mg/dL (2.7-4.5); Platelet Count 314 K/mcL (140-400); Potassium 3.6 mEq/L (3.5-5.1); Red Blood Count 2.81 M/mcL (4.19-5.50); Red Cell Distribution Width 18.2 % (11.5-14.5); White Blood Count 15.8 K/mcL (4.3-11.1)
[2019-01-25] MEDS: PrismaSATE BGK 4/2.5 5,000 ML CRRT SCH ×12 (04:11→19:47)
[2019-01-25] MEDS: Cefepime HCl 2,000 MG in Water for inj. (sterile) 20 ML IVP SCH ×2 (05:04→17:34)
[2019-01-25 05:10] LABS: ABG Base Excess -4 mEq/L (-2 to 3); ABG HCO3 22 mEq/L (21-27); ABG Oxygen Saturation 85 % (95-98); ABG PCO2 39 mmHg (35-45); ABG PH 7.36 pH Units (7.32-7.45); ABG PO2 52 mmHg (85-104); ABG TCO2 23 mEq/L (20-26); Blood Gas Modality PRVC; Blood Gas PEEP 5 cm H2O; Blood Gas VT 550 cc
[2019-01-25 05:50] LABS: Monocytes # 0.3 K/mcL (0.0-1.3); Neutrophils # 15.5 K/mcL (1.6-8.9)
[2019-01-25] MEDS: Heparin 25,000 UNIT/250 ML D5W 25,000 UNIT/250 ML IV.SOLN IVC SCH (06:09)
--- NOTE | 2019-01-25 07:12 | Pulmonology Progress Note ---
<Fabio Domingo - Last Filed: 01/25/19 13:28> Date of Encounter: 01/25/19 Time of Encounter: 07:12 Assessment and Plan (1) Acute respiratory failure with hypoxia Current Visit: Yes Status: Acute Acute respiratory failure with hypoxia secondary to pneumonia and hydrostatic pulmonary edema Patient fluid overloaded secondary to multiple IV medications and fluid resuscitation Patient is currently saturating and ventilating appropriately on mechanical ventilation Ventilator bundle in place, sedation with propofol, fentanyl, Precedex Patient is on linezolid, cefepime, clindamycin, fluconazole covering pneumonia Continuous renal replacement therapy initiated and adjusting fluid balance Continue mechanical ventilation, antibiotics, CRRT, DuoNeb's (2) Septic shock Current Visit: Yes Status: Acute Septic shock secondary to pneumonia and abdominal wound infection Patient is no longer requiring pressors, antibiotics in place Infectious disease following, appreciate recommendations (3) Pneumonia Current Visit: Yes Status: Acute Qualifiers: Pneumonia type: aspiration pneumonia Aspiration pneumonia type: unspecified Laterality: left Lung location: lower lobe of lung Qualified Code(s): J69.0 - Pneumonitis due to inhalation of food and vomit (4) TONO (acute kidney injury) Current Visit: Yes Status: Acute Acute kidney injury likely secondary to prerenal from sepsis and hypotension Creatinine improved today from 3.3 yesterday to 1.8 today Continuous renal replacement therapy initiated yesterday Nephrology following, appreciate recommendations We will continue to monitor urine output and creatinine and electrolytes (5) Diabetes Current Visit: Yes Status: Acute Patient is chronic diabetic Patient is receiving total parenteral nutrition and tube feeds Insulin drip due to continued elevated glucose Qualifiers: Diabetes mellitus type: type 2 Diabetes mellitus care home insulin use: without termite treater helper use Diabetes mellitus complication status: without complication Qualified Code(s): E11.9 - Type 2 diabetes mellitus without complications (6) Encephalopathy Current Visit: Yes Status: Acute Background toxic/metabolic encephalopathy, currently medically sedated (7) Status post colon resection Current Visit: Yes Status: Acute (8) Poor prognosis Current Visit: Yes Status: Acute Considering multiple diagnoses, comorbidities and length of stay patient's prognosis is poor Palliative care consultation today for assistance in goals of care/CODE STATUS/prognosis discussion with family Subjective Principal diagnosis: Postop colectomy and colostomy Interval history: No acute events overnight, patient continues to be mechanically ventilated, continuous renal replacement therapy. Palliative care consulted today for goals of care and prognosis and CODE STATUS discussion. Objective PUL Vital signs: Last Vital Signs Temp 96.8 F L 01/25/19 04:00 Pulse 84 01/25/19 07:00 Resp 28 01/25/19 07:00 BP 109/48 01/25/19 07:00 Pulse Ox 92 01/25/19 07:00 General appearance: no acute distress, other (Medically sedated) Eyes: nonicteric ENT: other (ET tube and OG tube present) Neck: supple Effort: other (Mechanically ventilated) Auscultation: bilateral: wheezes, rhonchi Cardiovascular: regular rate and rhythm Gastrointestinal: absent bowel sounds, soft, non-distended, other (PEG tube present in left abdomen, midline abdominal surgical wound present with wilmar and packing, no erythema or purulent drainage) Integumentary: other (Surgical wound, otherwise normal) Extremities: no cyanosis, pink and warm, edema (Bilateral lower extremity pitting edema) Musculoskeletal: no deformities pupils equal and round, other (Medically sedated) Ventilator Settings Ventilator Settings: Ventilator Settings, Last 8 Hours Ventilator Tidal Volume 550 Setting Ventilator Tidal Volume 550 Setting Ventilator Tidal Volume 550 Setting Ventilator Tidal Volume 550 Setting Ventilator Tidal Volume 550 Setting Ventilator Tidal Volume 550 Setting Ventilator Tidal Volume 550 Setting Ventilator Tidal Volume 550 Setting Ventilator Tidal Volume 550 Setting Ventilator Tidal Volume 550 Setting Ventilator Tidal Volume 550 Setting Ventilator Tidal Volume 550 Setting Ventilator Tidal Volume 550 Setting Ventilator Respiratory Rate 28 Setting Ventilator Respiratory Rate 28 Setting Ventilator Respiratory Rate 28 Setting Ventilator Respiratory Rate 28 Setting Ventilator Respiratory Rate 28 Setting Ventilator Respiratory Rate 28 Setting Ventilator Respiratory Rate 28 Setting Ventilator Respiratory Rate 28 Setting Ventilator Respiratory Rate 28 Setting Ventilator Respiratory Rate 28 Setting Ventilator Respiratory Rate 28 Setting Ventilator Respiratory Rate 28 Setting Ventilator Respiratory Rate 28 Setting Actual Respiratory Rate 28 Actual Respiratory Rate 28 Actual Respiratory Rate 28 Actual Respiratory Rate 28 Actual Respiratory Rate 28 Actual Respiratory Rate 28 Actual Respiratory Rate 28 Actual Respiratory Rate 28 Actual Respiratory Rate 28 Actual Respiratory Rate 28 Actual Respiratory Rate 28 Actual Respiratory Rate 28 Positive End Expiratory 5 Pressure Positive End Expiratory 5 Pressure Positive End Expiratory 5 Pressure Positive End Expiratory 5 Pressure Positive End Expiratory 5 Pressure Positive End Expiratory 5 Pressure Positive End Expiratory 5 Pressure Positive End Expiratory 5 Pressure Positive End Expiratory 5 Pressure Positive End Expiratory 5 Pressure Positive End Expiratory 5 Pressure Positive End Expiratory 5 Pressure Positive End Expiratory 5 Pressure Peak Inspiratory Airway 35 Pressure Peak Inspiratory Airway 35 Pressure Peak Inspiratory Airway 35 Pressure Peak Inspiratory Airway 36 Pressure Peak Inspiratory Airway 35 Pressure Peak Inspiratory Airway 35 Pressure Peak Inspiratory Airway 36 Pressure Peak Inspiratory Airway 36 Pressure Peak Inspiratory Airway 37 Pressure Peak Inspiratory Airway 35 Pressure Peak Inspiratory Airway 37 Pressure Peak Inspiratory Airway 36 Pressure Results - Laboratory Findings CBC and BMP: 01/25/19 03:30 01/25/19 03:30 ABG ABG pH 7.36 pH Units (7.32-7.45) 01/25/19 05:06 ABG pCO2 39 mmHg (35-45) 01/25/19 05:06 ABG pO2 52 mmHg (85-104) L 01/25/19 05:06 ABG O2 Saturation 85 % (95-98) L 01/25/19 05:06 PT/INR, D-dimer PT 15.5 Seconds (9.4-12.1) H 01/14/19 17:30 Abnormal lab findings: Abnormal lab results WBC 15.8 K/mcL (4.3-11.1) H 01/25/19 03:30 RBC 2.81 M/mcL (4.19-5.50) L 01/25/19 03:30 Hgb 8.0 g/dL (12.9-16.9) L 01/25/19 03:30 Hct 25.5 % (37.5-50.1) L 01/25/19 03:30 MCH 27.9 pg (28.0-33.3) L 01/23/19 04:51 MCHC 31.4 g/dL (31.6-35.5) L 01/25/19 03:30 RDW 18.2 % (11.5-14.5) H 01/25/19 03:30 Plt Count 499 K/mcL (140-400) H 01/20/19 04:25 10.0 % (0-4) H 01/25/19 03:30 2.0 % (0) H 01/24/19 03:50 4.0 % (0) H 01/16/19 05:12 15.5 K/mcL (1.6-8.9) H 01/25/19 03:30 0.3 K/mcL (0.6-4.6) L 01/24/19 03:50 1.8 K/mcL (0.0-1.3) H 01/19/19 03:44 Nucleated RBCs/100 WBC 0.4 /100 WBC (0) H 01/25/19 03:30 Present (Not Present) A 01/21/19 04:00 Increased (Normal) H 01/20/19 04:25 Present (Not Present) A 01/13/19 04:00 1+ (Not Present) A 01/23/19 04:51 Present (Not Present) A 01/24/19 03:50 1+ (Not Present) A 01/24/19 03:50 Present (Not Present) A 01/13/19 04:00 1+ (Not Present) A 01/11/19 03:45 1+ (Not Present) A 01/11/19 03:45 ESR >= 130 mm/hr (0-10) H 01/17/19 04:20 PT 15.5 Seconds (9.4-12.1) H 01/14/19 17:30 APTT 23.2 Seconds (26.0-36.0) L D 01/14/19 17:30 Heparin Anti-Xa, Unfract 0.21 IU/mL (0.30-0.70) L 01/24/19 18:30 ABG pH 7.21 pH Units (7.32-7.45) L 01/24/19 04:39 ABG pCO2 46 mmHg (35-45) H 01/23/19 05:26 ABG pO2 52 mmHg (85-104) L 01/25/19 05:06 ABG HCO3 17 mEq/L (21-27) L 01/24/19 04:39 ABG Total CO2 18 mEq/L (20-26) L 01/24/19 04:39 ABG O2 Saturation 85 % (95-98) L 01/25/19 05:06 ABG Base Excess -4 mEq/L (-2 to 3) L 01/25/19 05:06 Sodium 132 mEq/L (136-145) L 01/25/19 03:30 Potassium 5.4 mEq/L (3.5-5.1) H 01/20/19 20:00 Chloride 110 mEq/L (98-107) H 01/21/19 04:00 Carbon Dioxide 21 mEq/L (23-29) L 01/25/19 03:30 BUN 43 mg/dL (8-23) H 01/25/19 03:30 1.86 mg/dL (0.70-1.30) H 01/25/19 03:30 Est GFR ( Amer) 43 (> 60) L 01/25/19 03:30 Est GFR (Non-Af Amer) 36 (> 60) L 01/25/19 03:30 28 (6-26) H 01/21/19 14:00 Glucose 165 mg/dL (70-105) H 01/25/19 03:30 POC Glucose 201 mg/dL (70-99) H 01/25/19 00:33 6.2 % (-5.6) H 01/07/19 08:46 306 (280-300) H 01/23/19 04:51 Lactic Acid 2.4 mmol/L (0.5-2.2) H 01/10/19 00:14 Calcium 8.4 mg/dL (8.6-10.3) L 01/25/19 03:30 Venous Ioniz Calcium 1.08 mmol/L (1.15-1.35) L 01/11/19 04:14 Phosphorus 2.2 mg/dL (2.7-4.5) L 01/25/19 03:30 Iron < 10 mcg/dL (65-175) L 01/18/19 05:40 98 mg/dL (203-362) L 01/18/19 05:40 AST 9 Units/L (13-39) L 01/12/19 11:21 23 Units/L (30-223) L 01/23/19 04:51 167 mg/L (Less than 10) H 01/17/19 04:20 B-Natriuretic Peptide 300 pg/mL (Less than 100) H 01/09/19 15:18 4.4 g/dL (6.4-8.9) L 01/12/19 11:21 3.0 g/dL (3.5-5.7) L 01/21/19 14:00 2.1 g/dL (2.4-3.5) L 01/12/19 11:21 11.5 mg/dL (17.0-34.0) L 01/17/19 04:20 Triglycerides 179 mg/dL (< 150) H 01/10/19 04:15 6 Units/L (11-82) L 01/07/19 08:46 2.14 ng/mL (0.00-0.15) H 01/16/19 16:09 Turbid (Clear) A 01/22/19 10:50 Ur Specific [place] 1.026 (1.010-1.025) H 01/22/19 10:50 >=300 mg/dL (Neg-Trace) H 01/22/19 10:50 Trace mg/dL (Negative) H 01/22/19 10:50 Large (Negative) H 01/22/19 10:50 Ur Leukocyte Esterase Moderate (Negative) H 01/22/19 10:50 3-5 per hpf (0-3) H 01/22/19 10:50 15-30 per hpf (0-3) H 01/22/19 10:50 Ur Squamous Epith Cells Many per lpf (None-Few) H 01/07/19 11:03 Amorphous Sediment Moderate (Few) H 01/22/19 10:50 Many per hpf (None-Few) H 01/07/19 11:03 Ur Culture Indicated? YES (NO) A 01/22/19 10:50 Fluid Appearance Cloudy (Clear) A 01/19/19 08:30 Positive (Negative) A 01/17/19 08:42 Vancomycin Trough 28 mcg/mL (5-10) H 01/22/19 12:47 Crossmatch See Detail 01/17/19 12:25 - Microbiology Findings Microbiology Findings: Microbiology, Last 48 Hours 01/18/19 14:00 Anaerobic Culture - Final Aspirate No anaerobes were recovered. 01/22/19 10:50 Urine Culture - Final Urine,Clean Catch No growth. 01/18/19 14:00 Wound Culture - Final Abdomen Enterococcus faecalis Yeast Species 01/17/19 01:30 Wound Culture - Final Abdomen Group G Streptococcus Enterococcus faecalis Deirdre albicans 01/19/19 08:30 Respiratory Culture - Final Right Middle Lobe Lung - Clinical Findings Intake & Output: Intake & Output 01/24/19 01/24/19 01/25/19 15:59 23:59 07:59 Intake Total 822.4 / 2352.8 950.4 / 2352.8 489.3 / 489.3 Output Total 990 / 2738 1262 / 2738 1197 / 1197 Balance -167.6 / -385.2 -311.6 / -385.2 -707.7 / -707.7 Weight 109.6 kg 109.6 kg 109.6 kg Consult Discharge Plan - Plan Referrals: Ranjit Rodriguez MD [Primary Care Provider] - <Avi Steele - Last Filed: 01/25/19 16:31> Date of Encounter: 01/25/19 Assessment and Plan (1) Postoperative hypovolemic shock Current Visit: Yes Status: Acute Qualifiers: Encounter type: sequela Qualified Code(s): T81.19XS - Other postprocedural shock, sequela (2) Acute diastolic heart failure with preserved ejection fraction Current Visit: Yes Status: Acute Objective PUL Vital signs: Last Vital Signs Temp 98.7 F 01/25/19 12:00 Pulse 86 01/25/19 16:00 Resp 33 01/25/19 16:00 BP 107/49 01/25/19 16:00 Pulse Ox 93 01/25/19 16:00 Ventilator Settings Ventilator Settings: Ventilator Settings, Last 8 Hours Ventilator Tidal Volume 500 Setting Ventilator Tidal Volume 500 Setting Ventilator Tidal Volume 500 Setting Ventilator Tidal Volume 500 Setting Ventilator Tidal Volume 500 Setting Ventilator Tidal Volume 500 Setting Ventilator Tidal Volume 500 Setting Ventilator Tidal Volume 500 Setting Ventilator Tidal Volume 500 Setting Ventilator Tidal Volume 500 Setting Ventilator Tidal Volume 500 Setting Ventilator Tidal Volume 550 Setting Ventilator Respiratory Rate 26 Setting Ventilator Respiratory Rate 26 Setting Ventilator Respiratory Rate 26 Setting Ventilator Respiratory Rate 26 Setting Ventilator Respiratory Rate 26 Setting Ventilator Respiratory Rate 26 Setting Ventilator Respiratory Rate 26 Setting Ventilator Respiratory Rate 26 Setting Ventilator Respiratory Rate 26 Setting Ventilator Respiratory Rate 26 Setting Ventilator Respiratory Rate 26 Setting Ventilator Respiratory Rate 28 Setting Actual Respiratory Rate 28 Actual Respiratory Rate 28 Actual Respiratory Rate 26 Actual Respiratory Rate 29 Actual Respiratory Rate 26 Positive End Expiratory 5 Pressure Positive End Expiratory 5 Pressure Positive End Expiratory 5 Pressure Positive End Expiratory 5 Pressure Positive End Expiratory 5 Pressure Positive End Expiratory 5 Pressure Positive End Expiratory 5 Pressure Positive End Expiratory 5 Pressure Positive End Expiratory 5 Pressure Positive End Expiratory 5 Pressure Positive End Expiratory 5 Pressure Positive End Expiratory 5 Pressure Peak Inspiratory Airway 28 Pressure Peak Inspiratory Airway 29 Pressure Peak Inspiratory Airway 30 Pressure Peak Inspiratory Airway 29 Pressure Peak Inspiratory Airway 30 Pressure Peak Inspiratory Airway 33 Pressure Peak Inspiratory Airway 28 Pressure Peak Inspiratory Airway 29 Pressure Peak Inspiratory Airway 30 Pressure Peak Inspiratory Airway 31 Pressure Peak Inspiratory Airway 31 Pressure Peak Inspiratory Airway 34 Pressure Results - Laboratory Findings CBC and BMP: 01/25/19 03:30 01/25/19 03:30 ABG ABG pH 7.36 pH Units (7.32-7.45) 01/25/19 05:06 ABG pCO2 39 mmHg (35-45) 01/25/19 05:06 ABG pO2 52 mmHg (85-104) L 01/25/19 05:06 ABG O2 Saturation 85 % (95-98) L 01/25/19 05:06 PT/INR, D-dimer PT 15.5 Seconds (9.4-12.1) H 01/14/19 17:30 Abnormal lab findings: Abnormal lab results WBC 15.8 K/mcL (4.3-11.1) H 01/25/19 03:30 RBC 2.81 M/mcL (4.19-5.50) L 01/25/19 03:30 Hgb 8.0 g/dL (12.9-16.9) L 01/25/19 03:30 Hct 25.5 % (37.5-50.1) L 01/25/19 03:30 MCH 27.9 pg (28.0-33.3) L 01/23/19 04:51 MCHC 31.4 g/dL (31.6-35.5) L 01/25/19 03:30 RDW 18.2 % (11.5-14.5) H 01/25/19 03:30 Plt Count 499 K/mcL (140-400) H 01/20/19 04:25 10.0 % (0-4) H 01/25/19 03:30 2.0 % (0) H 01/24/19 03:50 4.0 % (0) H 01/16/19 05:12 15.5 K/mcL (1.6-8.9) H 01/25/19 03:30 0.3 K/mcL (0.6-4.6) L 01/24/19 03:50 1.8 K/mcL (0.0-1.3) H 01/19/19 03:44 Nucleated RBCs/100 WBC 0.4 /100 WBC (0) H 01/25/19 03:30 Present (Not Present) A 01/21/19 04:00 Increased (Normal) H 01/20/19 04:25 Present (Not Present) A 01/13/19 04:00 1+ (Not Present) A 01/23/19 04:51 Present (Not Present) A 01/24/19 03:50 1+ (Not Present) A 01/24/19 03:50 Present (Not Present) A 01/13/19 04:00 1+ (Not Present) A 01/11/19 03:45 1+ (Not Present) A 01/11/19 03:45 ESR >= 130 mm/hr (0-10) H 01/17/19 04:20 PT 15.5 Seconds (9.4-12.1) H 01/14/19 17:30 APTT 23.2 Seconds (26.0-36.0) L D 01/14/19 17:30 Heparin Anti-Xa, Unfract 0.22 IU/mL (0.30-0.70) L 01/25/19 08:58 ABG pH 7.21 pH Units (7.32-7.45) L 01/24/19 04:39 ABG pCO2 46 mmHg (35-45) H 01/23/19 05:26 ABG pO2 52 mmHg (85-104) L 01/25/19 05:06 ABG HCO3 17 mEq/L (21-27) L 01/24/19 04:39 ABG Total CO2 18 mEq/L (20-26) L 01/24/19 04:39 ABG O2 Saturation 85 % (95-98) L 01/25/19 05:06 ABG Base Excess -4 mEq/L (-2 to 3) L 01/25/19 05:06 Sodium 132 mEq/L (136-145) L 01/25/19 03:30 Potassium 5.4 mEq/L (3.5-5.1) H 01/20/19 20:00 Chloride 110 mEq/L (98-107) H 01/21/19 04:00 Carbon Dioxide 21 mEq/L (23-29) L 01/25/19 03:30 BUN 43 mg/dL (8-23) H 01/25/19 03:30 1.86 mg/dL (0.70-1.30) H 01/25/19 03:30 Est GFR ( Amer) 43 (> 60) L 01/25/19 03:30 Est GFR (Non-Af Amer) 36 (> 60) L 01/25/19 03:30 28 (6-26) H 01/21/19 14:00 Glucose 165 mg/dL (70-105) H 01/25/19 03:30 POC Glucose 201 mg/dL (70-99) H 01/25/19 00:33 6.2 % (-5.6) H 01/07/19 08:46 306 (280-300) H 01/23/19 04:51 Lactic Acid 2.4 mmol/L (0.5-2.2) H 01/10/19 00:14 Calcium 8.4 mg/dL (8.6-10.3) L 01/25/19 03:30 Venous Ioniz Calcium 1.08 mmol/L (1.15-1.35) L 01/11/19 04:14 Phosphorus 2.2 mg/dL (2.7-4.5) L 01/25/19 03:30 Iron < 10 mcg/dL (65-175) L 01/18/19 05:40 98 mg/dL (203-362) L 01/18/19 05:40 AST 9 Units/L (13-39) L 01/12/19 11:21 23 Units/L (30-223) L 01/23/19 04:51 167 mg/L (Less than 10) H 01/17/19 04:20 B-Natriuretic Peptide 300 pg/mL (Less than 100) H 01/09/19 15:18 4.4 g/dL (6.4-8.9) L 01/12/19 11:21 3.0 g/dL (3.5-5.7) L 01/21/19 14:00 2.1 g/dL (2.4-3.5) L 01/12/19 11:21 11.5 mg/dL (17.0-34.0) L 01/17/19 04:20 Triglycerides 179 mg/dL (< 150) H 01/10/19 04:15 6 Units/L (11-82) L 01/07/19 08:46 2.14 ng/mL (0.00-0.15) H 01/16/19 16:09 Turbid (Clear) A 01/22/19 10:50 Ur Specific [place] 1.026 (1.010-1.025) H 01/22/19 10:50 >=300 mg/dL (Neg-Trace) H 01/22/19 10:50 Trace mg/dL (Negative) H 01/22/19 10:50 Large (Negative) H 01/22/19 10:50 Ur Leukocyte Esterase Moderate (Negative) H 01/22/19 10:50 3-5 per hpf (0-3) H 01/22/19 10:50 15-30 per hpf (0-3) H 01/22/19 10:50 Ur Squamous Epith Cells Many per lpf (None-Few) H 01/07/19 11:03 Amorphous Sediment Moderate (Few) H 01/22/19 10:50 Many per hpf (None-Few) H 01/07/19 11:03 Ur Culture Indicated? YES (NO) A 01/22/19 10:50 Fluid Appearance Cloudy (Clear) A 01/19/19 08:30 Positive (Negative) A 01/17/19 08:42 Vancomycin Trough 28 mcg/mL (5-10) H 01/22/19 12:47 Crossmatch See Detail 01/17/19 12:25 - Microbiology Findings Microbiology Findings: Microbiology, Last 48 Hours 01/19/19 08:30 Legionella Culture - Preliminary Right Middle Lobe Lung 01/18/19 14:00 Anaerobic Culture - Final Aspirate No anaerobes were recovered. 01/22/19 10:50 Urine Culture - Final Urine,Clean Catch No growth. - Clinical Findings Intake & Output: Intake & Output 01/25/19 01/25/19 01/25/19 07:59 15:59 23:59 Intake Total 789.3 / 1663.3 862 / 1663.3 12 / 1663.3 Output Total 1197 / 2835 1486 / 2835 152 / 2835 Balance -407.7 / -1171.7 -624 / -1171.7 -140 / -1171.7 Weight 109.6 kg 109.6 kg 109.6 kg - Attending Attestation I examined this patient and my medical decision-making was reviewed with the Resident Physician. I agree with the documented findings, disposition and treatment plan as described except to the extent set forth below. We independently had [id number] contact with the patient I spent 40min of Critical Care time with this patient. It involved decision making of high complexity to assess, manipulate, and support vital organ system failure and/or to prevent further life threatening deterioration of the patient's condition. The time involved in the performance of separately reportable procedures was not counted toward critical care time. Patient seen and examined at bedside Labs, radiology, chart personally reviewed. Management was reviewed during multidisciplinary critical care rounds. [employer] SERVICE [employer]RARIAN: Deeply sedated for ventilator synchrony he is not a candidate for spontaneous breathing trial today Pulm: Hypoxic hypercapnic respiratory failure remains on the ventilator over ventilating the patient to accommodate for metabolic acidosis he remains hypoxic will need to go up on FiO2 and PEEP ratio. Cards: Distributive shock secondary to sepsis. Remains on vasopressor support waned for goal map around 65 GI: GI prophylaxis given he is status post ostomy revision complicated by intra- abdominal infection general surgery following Nutrition: Dietary following his on TPN Renal: Acute kidney failure requiring continuous renal replacement therapy ne phrology following UOP Monitored, Cont to Trend sCr and monitor Electrolytes. ID: Septic shock secondary to pneumonia and likely intra-abdominal source he is on broad-spectrum antibiotics per infectious disease recommendations including antifungals Heme/Onc: He is on heparin infusion to facilitate use of CRRT his platelets and hemoglobin are stable Endo: Glucose Monitored Integ/MSK: Skin Care per routine ICU Nursing Protocol to prevent ulcers. Lines: All lines examined without evidence of infection : Dispo: Monitor in ICU for critical illness CODE: I had an extensive conversation with the patient's healthcare proxy is his sister and nephew as well as some other family members who are present in the room palliative care was also involved in this discussion. Family was tearful and overtly angered by the situation that their loved one was critically ill with poor prognosis. It appears that he has established before hand based upon living welted he did not want prolonged mechanical ventilation for more than "a couple of days" and I explained that his prognosis is such that if he were to recover overall he would need to very prolonged course of mechanical ventilation possibly even tracheostomy placement. Family was quite upset about the sequence of events including with a thought were surgical failures even previous to this admission. To this and they asked me about statistics of failure rates of surgery in this hospital which I was unable to give them but I was able to provide them with the number for the hospital patient advocate and I did my best to answer all questions other than this while in the room as provided emotional support The patient is unable or incompetent to participate in giving a history and/or making treatment decisions. The discussion was necessary for determining tr eatment decision. This discussion took place in the ICU The total meeting time was 20 minutes
[2019-01-25] MEDS: Dorzolamide/Timolol 1 DROP RIGHT EYE SCH ×2 (07:37→20:38)
[2019-01-25] MEDS: Clindamycin 600 MG/50 ML 600 MG/50 ML IV.SOLN IVPB SCH ×2 (07:39→16:41)
[2019-01-25] MEDS: Pantoprazole 40 MG VIAL IVP SCH (07:39)
[2019-01-25] MEDS: Insulin Human Regular 100 UNIT in 0.9 % Sodium Chloride 100 ML IVC SCH (07:45)
[2019-01-25] MEDS: Fluconazole 400 MG/200 ML 400 MG/200 ML BAG IVPB SCH (07:47)
[2019-01-25] MEDS: Chlorhexidine Rinse 15 ML MOUTHWASH MM SCH ×2 (07:52→20:39)
[2019-01-25] MEDS: *HR* Amiodarone 200 MG TABLET PO SCH (07:52)
--- NOTE | 2019-01-25 10:38 | Infectious Disease Progress No ---
ID Progress Note Date of Encounter: 01/25/19 Time of Encounter: 09:25 - Subjective Subjective: Patient seen and examined. No acute events noted overnight. Patient remains intubated, sedated, on Karishma with net removal. Seen with nursing at bedside. Nursing notes reviewed. Large amount of green drainage and tube feed noted from PEG tube insertion site overnight, so tube feeds stopped. Re-started this morning. Still requiring vasopressors to maintain adequate perfusion. - Objective CBC & Chem 7: 01/26/19 04:25 01/26/19 04:25 - Line Documentation Line Documentation: Dialysis Catheter (Right dialysis catheter noted to the left neck with transparent dressing clean, dry, and intact.), Salazar Catheter (Salazar catheter noted to be draining clear yellow urine.), PICC Line (Right upper extremity) - Exam Vitals: Temp Pulse Resp BP Pulse Ox 97.0 F L 85 28 105/49 92 01/25/19 08:57 01/25/19 10:00 01/25/19 10:00 01/25/19 10:00 01/25/19 10:00 Exam: Head: Atraumatic, normal inspection, normocephalic. Eye: PERRLA, no scleral icterus noted. ENT: Mucous membranes moist. No odontogenic infection noted. Neck: Normal inspection, no meningismus. Temporary dialysis catheter noted to the left neck with transparent dressing clean, dry, and intact. Respiratory: Clear to auscultation. No rales, respiratory distress, rhonchi, or wheezes noted. Cardiovascular: Regular rate and rhythm, S1 and S2 audible. No murmurs, rubs, or gallops. GI: Soft, stented, hypoactive bowel sounds. Midline abdominal incision open to air with 3 areas of wound dehiscence with packing noted. Otherwise wilmar are intact and wound a well approximated. No surrounding erythema. Colostomy noted to the right lower quadrant with liquid brown stool noted in the colostomy device. Surgical site noted to the left lower quadrant that has dehisced with some wilmar intact. No surrounding erythema, warmth, tenderness, or drainage n oted. FARIDA #1 to the left upper quadrant with seropurulent drainage. FARIDA drain #2 to the left lower quadrant with scant serous output. Salazar catheter draining clear yellow urine. Extremities: No joint swelling or tenderness noted. 1+ pitting edema noted to the bilateral upper and bilateral lower extremities. Neurological: Sedated, unresponsive. Skin: Dry, intact, warm. Pale. No rashes. - Assessment and Plan (1) Sepsis Current Visit: Yes Status: Acute The patient had three SIRS criteria. Likely secondary to intra-abdominal fluid collections and possible aspiration PNA. WBC trending up with 10% bands. Afebrile overnight. Tachycardia resolved. Requiring vasopressors. Blood cultures drawn 01/09/19 are negative x 2 sets. Repeat blood cultures drawn 01/11/19 are NGTD x [address] Chest 01/16 shows bilateral pleural effusions with associated dependent upper and lower lobe airspace disease including consolidation, atelectasis and/or pna CT Abd/pelv 01/16 small peritoneal air possibly post-surgical, mild small bowel loops, gas within the nondependent urinary bladder which may relate due to recent instrumentation Qualifiers: Sepsis type: Streptococcus, other Qualified Code(s): A40.8 - Other streptococcal sepsis SNOMED Code(s): 91956993 (2) Colostomy dysfunction Current Visit: Yes Status: Resolved Likely secondary to stenosis at colostomy site. Status post MARCY, unavoidable enterotomies, takedown colostomy and left colon resection, transverse colostomy, and SBR with primary anastamosis, and gastrostomy tube placement 01/08/[address] Cerda. Surgical site with foul-smelling drainage and wound dehiscence. Wound culture positive for GGS, Enterococcus faecalis, C. albicans. Currently on Zyvox, fluconazole, cefepime, clindamycin SNOMED Code(s): 53470371 (3) Abnormal abdominal CT scan Current Visit: No Status: Acute CT abdomen/pelvis 01/16/19 showed multiple moderate amount of free intraperitoneal air in the upper abdomen which could be related to recent surgery. There are multiple focal fluid collection within the abdomen and pelvis which could be postsurgical. Correlation for developing infection is recommended. There is wall thickening of the distal esophagus, some loops of bowel, as well as possibly the stomach. Correlate for infection or inflammation. There is mild on bowel dilation, likely related to ileus, without sharp transition of caliber suspected. There is gas within the nondependent urinary bladder which may relate to recent instrumentation. Correlation for infection as recommended. Concern for infectious etiology given the fluid collections noted on CT and the sepsis-like picture. Status post CT-guided drain placement 01/19/19 by interventional radiology. Cultures are positive for group G strep, Enterococcus faecalis, and Deirdre albicans. Currently on cefepime, fluconazole, Zyvox, and clindamycin. SNOMED Code(s): 71437530609684622 (4) Pneumonia Current Visit: Yes Status: Suspected CXR shows a left retrocardiac opacity. Causative organism: Unclear. Aspiration is on the differential. No URI symptoms. Did not check MRSA screen since patient was already on Vanc. UATs negative. Status post bronch 01/19/19. BAL cultures negative. Has had episodes of vomiting since tube feeds started. High index of suspicion for aspiration. Per nursing, in-line suction contents resemble tube feed. Currently on Zyvox, Cefepime, Clindamycin. Qualifiers: Pneumonia type: due to unspecified organism Laterality: bilateral Lung location: lower lobe of lung Qualified Code(s): J18.1 - Lobar pneumonia, unspecified organism SNOMED Code(s): 486698447 (5) Abdominal pain Current Visit: Yes Status: Acute Abdominal pain, secondary to colostomy dysfunction and intra-abdominal abscess. Management per primary team and acute care surgery Qualifiers: Abdominal location: generalized Qualified Code(s): R10.84 - Generalized abdominal pain SNOMED Code(s): 77751708 (6) Acute kidney injury superimposed on CKD Current Visit: Yes Status: Acute TONO on CKD3. Patient presented with elevated serum creatinine which worsened during stay. Currently on Karishma. Nephrology consulted and following. SNOMED Code(s): 12720221 (7) Dysphagia Current Visit: Yes Status: Acute Dysphagia, patient has failed modified barium swallow. Unknown cause of patient's dysphagia at this time. CT Soft tissue neck was unrevealing for cause. Further workup and treatment per the primary team and ENT Qualifiers: Dysphagia type: oropharyngeal phase Qualified Code(s): R13.12 - Dysphagia, oropharyngeal phase SNOMED Code(s): 36359103, 815328853 (8) Hydronephrosis, left Current Visit: No Status: Chronic SNOMED Code(s): 01745170 (9) Diabetes Current Visit: Yes Status: Acute Per primary team Qualifiers: Diabetes mellitus type: type 2 Diabetes mellitus jail insulin use: without jail use Diabetes mellitus complication status: without complication Qualified Code(s): E11.9 - Type 2 diabetes mellitus without complications SNOMED Code(s): 09612478 (10) Atrial fibrillation Current Visit: Yes Status: Chronic Management per primary team Qualifiers: Atrial fibrillation type: paroxysmal Qualified Code(s): I48.0 - Paroxysmal atrial fibrillation SNOMED Code(s): 11324070 (11) Acute respiratory failure Current Visit: Yes Status: Acute Currently intubated and sedated on the ventilator. Likely multifactorial. Status post bronchoscopy 01/19/19. BAL cultures negative. Management per the pulm/CC team. Qualifiers: Respiratory failure complication: hypoxia Qualified Code(s): J96.01 - Acute respiratory failure with hypoxia SNOMED Code(s): 73340714 - Recommendations Recommendations: Continue to trend CBC and BMP daily. Diet, wound care, and PEG tube management per the ACS team. Vent and vasopressor management per the pulm/CC team. TONO management per the nephrology team. Continue Zyvox 600mg IV Q12H. Continue cefepime 2 grams IV Q12H. Continue clindamycin 600mg IV Q8H. Continue fluconazole 400mg IV daily. Duration of treatment depends on the clinical picture. Monitor renal function and for drug toxicity and dose-adjust antibiotics. Consult Discharge Plan - Plan Referrals: Ranjit Rodriguez MD [Primary Care Provider] -
--- NOTE | 2019-01-25 11:58 | AcuteCareSurgery Progress Note ---
Date of Encounter: 01/25/19 Time of Encounter: 10:30 - Assessment and Plan (1) Colon obstruction Current Visit: Yes Status: Acute Due to colostomy stenosis d/t ischemia. POD#17 colostomy revision and G-tube. Pt sedated on vent. Continue current ICU care per pulmonology and ID. (2) Acute on chronic renal insufficiency Current Visit: Yes Status: Resolved On dialysis; managed per nephrology (3) Diabetes Current Visit: Yes Status: Acute Qualifiers: Diabetes mellitus type: type 2 Diabetes mellitus exterminator insulin use: without nursing home use Diabetes mellitus complication status: without complication Qualified Code(s): E11.9 - Type 2 diabetes mellitus without complications (4) Essential hypertension Current Visit: No Status: Chronic Hypotension d/t sepsis, off pressors: managed per primary service (5) Acute respiratory failure Current Visit: Yes Status: Acute Sedated on vent Qualifiers: Respiratory failure complication: hypoxia Qualified Code(s): J96.01 - Acute respiratory failure with hypoxia (6) Atrial fibrillation Current Visit: Yes Status: Chronic NSR now Qualifiers: Atrial fibrillation type: paroxysmal Qualified Code(s): I48.0 - Paroxysmal atrial fibrillation Subjective Narrative: Pt is POD#17 colectomy and colostomy revision with G-tube placement. Pt is sedated on vent d/t sepsis from aspiration pnuemonia and wound infection. Pt is no longer on vasopressors for BP control. Objective Vital Signs - Last 8 Hours Temp Pulse Resp BP Pulse Ox 01/25/19 11:00 93 27 108/84 93 01/25/19 10:58 29 94 01/25/19 10:00 85 28 105/49 92 01/25/19 09:45 26 105/49 93 01/25/19 09:00 84 28 105/45 92 01/25/19 08:57 97.0 F L 01/25/19 08:00 88 28 116/55 91 01/25/19 07:31 25 99 01/25/19 07:00 84 28 109/48 92 01/25/19 06:00 86 28 141/55 90 01/25/19 05:51 28 114/50 90 01/25/19 05:00 70 28 103/49 91 01/25/19 04:00 96.8 F L 68 28 98/50 91 Intake and Output 01/24/19 01/25/19 01/25/19 23:59 07:59 15:59 Intake Total 950.4 / 2352.8 789.3 / 1514.3 725 / 1514.3 Output Total 1262 / 2738 1197 / 1960 763 / 1960 Balance -311.6 / -385.2 -407.7 / -445.7 -38 / -445.7 Intake: IV Fluids 864.4 / 2256.8 739.3 / 1427.3 688 / 1427.3 PrismaSATE BGK 4/2.5 5,000 ML @ 0 / 0 0 / 0 0 / 0 1000 mls/hr CRRT CONT [facility] Rx#: [id number] PRECEDEX Premix 400 mcg In 100 0 / 247 ml @ 0.2 MCG/KG/HR 4.65 mls/hr IVC .[id number] [facility] Rx#:[id number] FentaNYL (PF) 1,000 MCG In 0.9 32 / 200 100 / 200 100 / 200 % Sodium Chloride 80 ML @ 50 MCG/HR 5 mls/hr IVC CONT [facility] Rx #:[id number] Heparin 25,000 UNIT/250 ML D5W 112 / 112 138 / 198 60 / 198 25,000 unit In 250 ml @ 9.12 UNIT/KG/HR 9.996 mls/hr IVC . Q24H [facility] Rx#:[id number] HumuLIN R 100 UNIT In 0.9 % 40.4 / 49.8 31.3 / 31.3 Sodium Chloride 100 ML @ 4.7 UNIT/HR 4.747 mls/hr IVC CONT [facility] Rx#:[id number] Levophed 8 MG In Dextrose 5% 175 / 258 178 / 178 250 ML @ 8 MCG/MIN 15.48 mls/hr IVC CONT [facility] Rx#:[id number] Diprivan 1,000 mg In 100 ml @ 5 135 / 400 100 / 200 100 / 200 MCG/KG/MIN 2.859 mls/hr IVC . Q24H [facility] Rx#:[id number] Maxipime 2,000 MG In Water for 20 / 40 20 / 20 inj. (sterile) 20 ML @ 300 mls/ hr IVP Q12H [facility] Rx#:[id number] Cleocin Premix 600 MG/50 ML 600 50 / 150 50 / 100 50 / 100 mg In 50 ml @ 50 mls/hr IVPB Q8HR [facility] Rx#:[id number] Diflucan Premix 400 MG/200 ML 200 / 200 400 mg In 200 ml @ 200 mls/hr IVPB DAILY [facility] Rx#:[id number] Zyvox Premix 600mg/300mL 600 mg 300 / 600 300 / 300 In 300 ml @ 150 mls/hr IVPB Q12HR [facility] Rx#:[id number] Tube Feeding 86 / 96 50 / 87 37 / 87 Free Water Intake Amount 0 / 0 0 / 0 Output: Stool 60 / 60 Catheter 268 / 1173 362 / 403 41 / 403 Wound Drainage 5 Left Abd, FARIDA # 2 Left Abd, FARIDA #1 Fluid Removed by Prismaflex 989 / 1146 770 / 1492 722 / 1492 Other: Weight 109.6 kg 109.6 kg 109.6 kg Blood Glucose* 172 159 Patient Weight 01/25/19 23:59 Weight 109.6 kg - General physical appearance other (pt is on vent and off pressors) - Neck Neck exam: trachea midline, no venous distension - Respiratory other (on vent) rales: bilateral - Cardiovascular Cardiovascular exam: Present: RRR (BP stable) - Abdomen Additional Comments: Wound is healing well with packing in place. G-tube with gastric drainage around tube. Colostomy functioning well with stool and gas. - Incision Incision: Present: clean and dry (with packing intermittently) - Neurologic other (sedated) - Labs 01/25/19 03:30 01/25/19 03:30 Diabetes panel 01/25/19 Range/Units 03:30 Sodium 132 L (136-145) mEq/L Potassium 3.6 (3.5-5.1) mEq/L Chloride 102 (98-107) mEq/L Carbon Dioxide 21 L (23-29) mEq/L BUN 43 H (8-23) mg/dL Creatinine 1.86 H (0.70-1.30) mg/dL Glucose 165 H (70-105) mg/dL Calcium 8.4 L (8.6-10.3) mg/dL Calcium panel 01/25/19 Range/Units 03:30 Calcium 8.4 L (8.6-10.3) mg/dL Phosphorus 2.2 L (2.7-4.5) mg/dL Pituitary panel 01/25/19 Range/Units 03:30 Sodium 132 L (136-145) mEq/L Potassium 3.6 (3.5-5.1) mEq/L Chloride 102 (98-107) mEq/L Carbon Dioxide 21 L (23-29) mEq/L BUN 43 H (8-23) mg/dL Creatinine 1.86 H (0.70-1.30) mg/dL Glucose 165 H (70-105) mg/dL Calcium 8.4 L (8.6-10.3) mg/dL Adrenal panel 01/25/19 Range/Units 03:30 Sodium 132 L (136-145) mEq/L Potassium 3.6 (3.5-5.1) mEq/L Chloride 102 (98-107) mEq/L Carbon Dioxide 21 L (23-29) mEq/L BUN 43 H (8-23) mg/dL Creatinine 1.86 H (0.70-1.30) mg/dL Glucose 165 H (70-105) mg/dL Calcium 8.4 L (8.6-10.3) mg/dL Consult Discharge Plan - Plan Referrals: Ranjit Rodriguez MD [Primary Care Provider] -
--- NOTE | 2019-01-25 15:29 | Palliative - Consult Note ---
Date of Encounter: 01/25/19 Time of Encounter: 13:00 - Assessment and Plan (1) Goals of care, counseling/discussion Current Visit: Yes Status: Acute Assessment and plan: Family meeting #1 - Conducted 20 minute meeting in ICU meeting room with niece and sister. Updated on POC and reviewed patients advanced directives. Explained that patient is still requiring intubation and mechanical ventilation as well as vasopressor support. Patient is day #6 of intubation and day #17 post of colostomy revision. Family emotional about how patient arrived at this point in his hospital stay. Provided support and explained that patient has poor prognosis. Family meeting #2 - Conducted 20 minute meeting in ICU meeting room. Dr. Xavier our attended meeting once nephew/POA Kuldip Ventura arrived. Discussed patients poor prognosis in detail. Discussed patients advanced directives and desires for aggressive measures. Explained that patient has been through extensive events while hospitalized that have impacted his ability to fully recover. Family verbalized understanding and desire to talk among themselves. Family provided time in ICU meeting room to discuss goals of care. (2) Acute respiratory failure with hypoxia Current Visit: Yes Status: Acute Assessment and plan: Day 6 of intubation and vasopressor support. Management per care team. (3) Septic shock Current Visit: Yes Status: Acute (4) TONO (acute kidney injury) Current Visit: Yes Status: Acute Assessment and plan: Nephrology following (5) Status post colon resection Current Visit: Yes Status: Acute Assessment and plan: Patient is POD #17 . Surgery following. Palliative-CN HPI - Data of Consult Patient: new to practice Consult date: 01/25/19 Requesting Physician: Fabio Domingo Primary Care Provider: Ranjit Rodriguez MD - Consult Narrative Palliative Care/Comfort Measures: Palliative care Reason for consult: Goals of Care History of present illness: Mr. Ventura is a 73 year old male w/ remote history of rectal ca in 2004 admitted on 07 January with UTI and leakage around his ostomy. Went into OR on 08 January for colostomy revision. Surgery was 6 hours. Pt had septic shock requiring pressors for a short time with drainage of abdominal abscess on 01/18. Patient suffered aspiration with rapid response called on 01/19 and atrial fibrillation. Patient transferred back to ICU and required intubation and IV vasopressor support. Nephrology consulted on 01/22 with bedside jaylin started. Patient sedated with versed and comfort with fentanyl. This palliative care consult is for goals of care discussion. CC: Ramon Waters MD - Time Spent with Patient Time: Total time spent is greater than 50% in coordination of care (as documented) at patient's floor/unit and/or counseling patient: Past Med Surg Social Fam HX - Past Medical History Source: old records reviewed, obtained from family, nursing notes reviewed Medical history: atrial fibrillation, cancer, coronary artery disease, diabetes, glaucoma, kidney stones, renal disease Additional medical history: rectal cancer, GI bleed r/t Xarelto. Psychiatric history: anxiety, depression - Past Surgical History Surgical History: pacemaker/AICD, other Additional surgical history: colon resection, hernia repair - 11/02/2017; eye sx., Pacer. - Social History Smoking Status: Never smoker Smokeless Tobacco Status: No Alcohol use: none Drug use: none Occupational status: retired Current living situation: Home Activity Level: Independent ambulation Recent Out of Country Travel Within the Last 8 Weeks: No Exposure or Possible Exposure to Illness During Travel: No - Family History Father Living Status: Hx Family Cardiac Disorders: Yes Mother Living Status: Medications and Allergies Ascorbic Acid [Vitamin C] 1,000 mg PO DAILY 12/31/15 [History] Metoprolol [Lopressor] 100 mg PO BID 12/31/15 [History] Multivitamin [One Daily Essential] 1 tab PO DAILY 12/31/15 [History] Brimonidine Tartrate/Timolol [Combigan 0.2%-0.5% Eye Drops] 1 drop RIGHT EYE BID 10/18/16 [History] Insulin DETEMIR [Levemir Flextouch] 12 unit SQ BID 11/09/16 [History] Amiodarone [Cordarone] 200 mg PO DAILY 08/04/17 [History] Zolpidem [Ambien] 10 mg PO HS 08/04/17 [History] Bimatoprost [Lumigan] 1 drop RIGHT EYE HS 11/02/17 [History] Calcium Carbonate [Calcium] 600 mg PO DAILY 11/02/17 [History] Dorzolamide [Trusopt] 1 drop RIGHT EYE TID 11/02/17 [History] Tolterodine Tartrate [Detrol] 2 mg PO BID 11/02/17 [History] Docusate [Colace] 100 mg PO DAILY #14 capsule 12/06/18 [Rx] Amlodipine Besylate 10 mg PO DAILY 01/09/19 [History] Aspirin 325 mg PO DAILY 01/09/19 [History] Glimepiride [Amaryl] 4 mg PO DAILY 01/09/19 [History] Insulin ASPART [Novolog Flexpen] 4 - 8 unit SQ TIDWM 01/09/19 [History] Allergy/AdvReac Type Severity Reaction Status Date / Time Penicillins Allergy Unknown Hives Verified 01/07/19 08:14 ROS unobtainable: due to endotracheal tube (Patient receiving sedation for mechanical ) - Constitutional Constitutional ROS PAL: decreased appetite, fatigue - Gastrointestinal Gastrointestinal: bloating, change in bowel habits, constipation - Musculoskeletal Musculoskeletal ROS IM: muscle weakness - Neurological Neurological ROS: weakness - Psychiatric Psychiatric general PM: anxiety Palliative Care-Exam - Constitutional Vitals: Temp Pulse Resp BP Pulse Ox 98.7 F 90 27 116/57 93 01/25/19 12:00 01/25/19 15:00 01/25/19 15:00 01/25/19 15:00 01/25/19 15:00 General appearance: Present: no acute distress - Head Head Exam: Present: atraumatic, normal inspection - Eye Eye exam: Present: PERRL - ENT ENT exam: Present: mucous membranes moist - Neck Neck exam: Present: normal inspection - Respiratory Additional comments: ET tube in place. Mechanical ventilation - Expanded Respiratory Exam Location: rhonchi: Left, Right, Upper - Cardiovascular Cardiovascular exam: Present: +S1, +S2 - Expanded Cardiovascular Exam Peripheral pulses: 1+: Femoral (L) PM, Femoral (R) PM, Posterior Tibialis (L), Posterior Tibialis (R), 2+: Carotid (L) PM, Carotid (R) PM, Radial (L), Radial (R) - GI/Abdominal Exam GI/Abdominal exam: Present: distended, firm, tenderness additional comments: Midline abdominal incision with stable. Areas of packing to incision. FARIDA drain x 2. Draining workman drainage Colostomy draining liquid stool - Expanded GI/Abdominal Exam GI/Abdominal exam: Present: ascites - Rectal Rectal Exam: Present: deferred - exam: Present: scrotal swelling Catheter Type: Urethral (Salazar) - Extremities Exam Extremities exam: Present: pedal edema Additional comments: Bilateral leg and pedal edema 3+ pitting - Neurological Exam Additional comments: Patient sedated - Expanded Neurological Exam Coma Scale Eye Opening: To Pain Coma Scale Motor Response: None Coma Scale Verbal Response: Inappropriate Coma Scale Total: 6 - Psychiatric Psychiatric exam: Present: flat affect - Skin Skin exam: Present: pallor, warm Internal Medicine - CN: Reslt - Labs CBC & Chem 7: 01/25/19 03:30 01/25/19 03:30 Labs: Short CBC 01/25/19 Range/Units 03:30 WBC 15.8 H (4.3-11.1) K/mcL Hgb 8.0 L (12.9-16.9) g/dL Hct 25.5 L (37.5-50.1) % Plt Count 314 (140-400) K/mcL Neutrophils # 15.5 H (1.6-8.9) K/mcL BMP 01/25/19 03:30 Sodium 132 L Potassium 3.6 Chloride 102 Carbon Dioxide 21 L BUN 43 H Creatinine 1.86 H Glucose 165 H Calcium 8.4 L - ABG Interpretation ABG results: ABG ABG pH 7.36 pH Units (7.32-7.45) 01/25/19 05:06 ABG pCO2 39 mmHg (35-45) 01/25/19 05:06 ABG pO2 52 mmHg (85-104) L 01/25/19 05:06 ABG O2 Saturation 85 % (95-98) L 01/25/19 05:06 PT/INR, D-dimer PT 15.5 Seconds (9.4-12.1) H 01/14/19 17:30 Consult Discharge Plan - Plan Referrals: Michael,Ranjit Weston MD [Primary Care Provider] - Palliative Quality Palliative Quality: Screen for Code Status: Yes, Screen for Goals of Care: Yes, Screen for Pain: Yes Code Status: 01/08/19 05:54 Resuscitation Status: Active [RES] Routine Comment: Resuscitation Status: Full Code
--- NOTE | 2019-01-25 16:26 | Event Note ---
Date of Encounter: 01/25/19 Time of Encounter: 16:00 F/U meeting with nephew/POA Kuldip Ventura. Family discussed patients advanced directive desires and desire to have additional family visit patient this evening and tomorrow and plan for a compassionate extubation to comfort care as per that patients desired wishes. Provided family support and plan for 12pm family meeting for compassionate extubation tomorrow. Case discussed with Dr. Steele.
[2019-01-25] MEDS ORDERED: Clinimix E 5%-15% SOLUTION 2,000 ML with MVI, adult with vitamin K 10 ML IVC SCH (17:00)
[2019-01-25] MEDS: Norepinephrine 8 MG in D5% in Water 250 ML IVC SCH (17:33)
[2019-01-25] MEDS: Latanoprost 2.5 ML BOTTLE RIGHT EYE SCH (20:38)
--- NOTE | 2019-01-25 23:32 | Nephrology Progress Note ---
Date of Encounter: 01/25/19 Time of Encounter: 12:00 - Assessment and Plan (1) Acute kidney injury superimposed on CKD Current Visit: Yes Status: Acute Continue CVVHDF with goal of negative fluid balance of 1-2kg in the next 24hrs if hemodynamics stay stable UOP alittle improved at 1038cc in the past 24hrs Continue to avoid nephrotoxins if possible Condition very guarded, family meeting planned today (2) Acute respiratory failure with hypoxia Current Visit: Yes Status: Acute (3) Colostomy dysfunction Current Visit: Yes Status: Resolved (4) Septic shock Current Visit: Yes Status: Acute Subjective Principal diagnosis: Postop colectomy and colostomy Interval history: Pt seen and examined still intubated and sedated. Remains on pressor support and tolerating CVVHDF but with little to no UF so far achieved per nurse Objective - Vital Signs Vital signs: Vital Signs Temp Pulse Resp BP Pulse Ox 01/25/19 23:00 72 28 113/51 93 01/25/19 22:21 28 121/51 94 01/25/19 22:00 74 28 120/54 94 01/25/19 21:00 78 26 126/57 94 01/25/19 20:17 29 127/55 93 01/25/19 20:00 96.9 F L 80 28 123/55 94 01/25/19 19:00 81 30 125/58 93 01/25/19 18:00 80 28 105/53 93 01/25/19 17:44 27 108/49 93 01/25/19 17:00 84 26 106/52 93 01/25/19 16:00 86 33 107/49 93 01/25/19 15:47 28 112/61 96 01/25/19 15:00 90 27 116/57 93 01/25/19 14:00 90 28 127/56 93 01/25/19 13:10 26 115/52 93 01/25/19 13:00 94 26 113/54 93 01/25/19 12:00 98.7 F 97 27 107/51 93 01/25/19 11:00 93 27 108/84 93 01/25/19 10:58 29 94 01/25/19 10:00 85 28 105/49 92 01/25/19 09:45 26 105/49 93 01/25/19 09:00 84 28 105/45 92 01/25/19 08:57 97.0 F L 01/25/19 08:00 88 28 116/55 91 01/25/19 07:31 25 99 01/25/19 07:00 84 28 109/48 92 01/25/19 06:00 86 28 141/55 90 01/25/19 05:51 28 114/50 90 01/25/19 05:00 70 28 103/49 91 01/25/19 04:00 96.8 F L 68 28 98/50 91 01/25/19 03:45 67 01/25/19 03:26 28 72/43 92 01/25/19 03:00 66 28 97/49 92 01/25/19 02:00 67 28 101/47 93 01/25/19 01:12 28 99/54 88 01/25/19 01:00 67 28 99/54 88 01/25/19 00:00 96.4 F L 62 28 91/48 91 01/24/19 23:41 28 91/50 91 Intake and Output 01/25/19 01/25/19 01/25/19 07:59 15:59 23:59 Intake Total 789.3 / 2604.3 964.9 / 2604.3 850.1 / 2604.3 Output Total 1197 / 4881 1499 / 4881 2185 / 4881 Balance -407.7 / -2276.7 -534.1 / -2276.7 -1334.9 / -2276.7 Intake: IV Fluids 739.3 / 2468.3 890.9 / 2468.3 838.1 / 2468.3 PrismaSATE BGK 4/2.5 5,000 ML @ 0 / 0 0 / 0 0 / 0 1000 mls/hr CRRT CONT [facility] Rx#: [id number] FentaNYL (PF) 1,000 MCG In 0.9 100 / 400 200 / 400 100 / 400 % Sodium Chloride 80 ML @ 50 MCG/HR 5 mls/hr IVC CONT [facility] Rx #:[id number] Heparin 25,000 UNIT/250 ML D5W 138 / 198 60 / 198 25,000 unit In 250 ml @ 9.12 UNIT/KG/HR 9.996 mls/hr IVC . Q24H [facility] Rx#:[id number] HumuLIN R 100 UNIT In 0.9 % 31.3 / 64.3 2.9 / 64.3 30.1 / 64.3 Sodium Chloride 100 ML @ 4.7 UNIT/HR 4.747 mls/hr IVC CONT [facility] Rx#:[id number] Levophed 8 MG In Dextrose 5% 178 / 343 165 / 343 250 ML @ 8 MCG/MIN 15.48 mls/hr IVC CONT [facility] Rx#:[id number] Diprivan 1,000 mg In 100 ml @ 5 100 / 473 200 / 473 173 / 473 MCG/KG/MIN 2.859 mls/hr IVC . Q24H [facility] Rx#:[id number] Maxipime 2,000 MG In Water for 40 20 / 40 inj. (sterile) 20 ML @ 300 mls/ hr IVP Q12H [facility] Rx#:[id number] Cleocin Premix 600 MG/50 ML 600 50 / 150 50 / 150 50 / 150 mg In 50 ml @ 50 mls/hr IVPB Q8HR [facility] Rx#:[id number] Diflucan Premix 400 MG/200 ML 200 / 200 400 mg In 200 ml @ 200 mls/hr IVPB DAILY [facility] Rx#:[id number] Zyvox Premix 600mg/300mL 600 mg 300 / 600 300 / 600 In 300 ml @ 150 mls/hr IVPB Q12HR [facility] Rx#:[id number] Tube Feeding 50 / 136 74 / 136 12 / 136 Free Water Intake Amount 0 / 0 Output: Stool 60 / 135 75 / 135 Catheter 362 / 426 41 / 426 23 / 426 Gastric Drainage 500 / 500 Wound Drainage Left Abd, FARIDA # 2 Left Abd, FARIDA #1 Fluid Removed by Prismaflex 770 / 3797 1445 / 3797 1582 / 3797 Other: Weight 109.6 kg 109.6 kg 109.6 kg Blood Glucose* 159 154 161 Patient Weight 01/25/19 23:59 Weight 109.6 kg - Lab 01/25/19 03:30 01/25/19 03:30 Consult Discharge Plan - Plan Referrals: Ranjit Rodriguez MD [Primary Care Provider] -
[2019-01-26] MEDS: Ipratropium/Albuterol Neb 3 ML IH SCH ×4 (00:05→11:10)
[2019-01-26] MEDS: Heparin 25,000 UNIT/250 ML D5W 25,000 UNIT/250 ML IV.SOLN IVC SCH (00:12)
[2019-01-26] MEDS: Artificial Tears SOLN 15 ML BOTTLE BOTH EYES SCH ×5 (00:15→13:58)
[2019-01-26] MEDS: Clindamycin 600 MG/50 ML 600 MG/50 ML IV.SOLN IVPB SCH ×2 (00:15→07:24)
[2019-01-26] MEDS: PrismaSATE BGK 4/2.5 5,000 ML CRRT SCH ×6 (00:21→06:43)
[2019-01-26] MEDS: 0.9 % Sodium Chloride 1,000 ML PRIME PRN ×4 (03:52→03:55)
[2019-01-26 04:46] LABS: ABG Base Excess -2 mEq/L (-2 to 3); ABG HCO3 24 mEq/L (21-27); ABG Oxygen Saturation 90 % (95-98); ABG PCO2 45 mmHg (35-45); ABG PH 7.34 pH Units (7.32-7.45); ABG PO2 62 mmHg (85-104); ABG TCO2 26 mEq/L (20-26); Blood Gas Modality PRVC; Blood Gas PEEP 5 cm H2O; Blood Gas VT 500 cc
[2019-01-26 04:51] LABS: Hematocrit 24.5 % (37.5-50.1); Hemoglobin 7.6 g/dL (12.9-16.9); Mean Corpuscular Hemoglobin 28.4 pg (28.0-33.3); Mean Corpuscular Volume 91.4 fL (83.0-100.0); Nucleated Red Blood Cells 0.7 /100 WBC (0); Platelet Count 299 K/mcL (140-400); Red Blood Count 2.68 M/mcL (4.19-5.50); Red Cell Distribution Width 18.5 % (11.5-14.5); White Blood Count 23.1 K/mcL (4.3-11.1)
[2019-01-26 05:12] LABS: BUN/Creatinine Ratio 19 (6-26); Blood Urea Nitrogen 24 mg/dL (8-23); Calcium 8.2 mg/dL (8.6-10.3); Carbon Dioxide 23 mEq/L (23-29); Chloride 100 mEq/L (98-107); Glucose 180 mg/dL (70-105); Osmolality,Calculated 283 (280-300); Potassium 3.6 mEq/L (3.5-5.1); Sodium 132 mEq/L (136-145); eGFR For African Americans > 60 (> 60); eGFR For Non-African Americans 55 (> 60)
[2019-01-26 05:20] LABS: Lymphocytes # 1.9 K/mcL (0.6-4.6); Monocytes # 1.4 K/mcL (0.0-1.3); Platelet Estimate Normal (Normal)
[2019-01-26 05:21] LABS: Anisocytosis 1+ (Not Present); Hypochromasia Present (Not Present)
[2019-01-26] MEDS: FentaNYL (PF) 1,000 MCG in 0.9 % Sodium Chloride 80 ML IVC SCH ×2 (06:25→12:39)
[2019-01-26] MEDS: Cefepime HCl 2,000 MG in Water for inj. (sterile) 20 ML IVP SCH (06:25)
[2019-01-26] MEDS: Norepinephrine 8 MG in D5% in Water 250 ML IVC SCH (07:10)
[2019-01-26] MEDS: Chlorhexidine Rinse 15 ML MOUTHWASH MM SCH (07:23)
[2019-01-26] MEDS: Pantoprazole 40 MG VIAL IVP SCH (07:23)
[2019-01-26] MEDS: Fluconazole 400 MG/200 ML 400 MG/200 ML BAG IVPB SCH (07:24)
[2019-01-26] MEDS: Dorzolamide/Timolol 1 DROP RIGHT EYE SCH (07:24)
[2019-01-26] MEDS: *HR* Amiodarone 200 MG TABLET PO SCH (07:25)
--- NOTE | 2019-01-26 07:38 | Event Note ---
Date of Encounter: 01/26/19 Time of Encounter: 07:36 - Nephrology Event Note Nephro Chart Update I see that the pt is being transitioned to comfort care. I reviewed the hand off from my colleague Dr. Heart. I will politely sign-off at this time, but please feel free to contact me with any questions. Thank you.
[2019-01-26] MEDS: 0.9 % Sodium Chloride 1,000 ML PRIME SCH (07:39)
--- NOTE | 2019-01-26 08:57 | Pulmonology Progress Note ---
<Fabio Domingo - Last Filed: 01/26/19 10:31> Date of Encounter: 01/26/19 Time of Encounter: 08:57 Assessment and Plan (1) Acute respiratory failure with hypoxia Current Visit: Yes Status: Acute Acute respiratory failure with hypoxia secondary to pneumonia and hydrostatic pulmonary edema Patient fluid overloaded secondary to multiple IV medications and fluid resuscitation Patient is currently saturating and ventilating appropriately on mechanical ventilation Ventilator bundle in place, sedation with propofol, fentanyl, Precedex Patient is on linezolid, cefepime, clindamycin, fluconazole covering pneumonia Continuous renal replacement therapy initiated and adjusting fluid balance Continue mechanical ventilation, antibiotics, CRRT, DuoNeb's (2) Septic shock Current Visit: Yes Status: Acute Septic shock secondary to pneumonia and abdominal wound infection Norepinephrine for pressor support, antibiotics in place Infectious disease following, appreciate recommendations (3) Pneumonia Current Visit: Yes Status: Acute Qualifiers: Pneumonia type: aspiration pneumonia Aspiration pneumonia type: unspecified Laterality: left Lung location: lower lobe of lung Qualified Code(s): J69.0 - Pneumonitis due to inhalation of food and vomit (4) TONO (acute kidney injury) Current Visit: Yes Status: Acute Acute kidney injury likely secondary to prerenal from sepsis and hypotension Continuous renal replacement therapy initiated Nephrology signed off, appreciate recommendations We will continue to monitor urine output and creatinine and electrolytes (5) Diabetes Current Visit: Yes Status: Acute Patient is chronic diabetic Patient is receiving total parenteral nutrition Insulin drip due to continued elevated glucose Qualifiers: Diabetes mellitus type: type 2 Diabetes mellitus correction insulin use: without correction use Diabetes mellitus complication status: without complication Qualified Code(s): E11.9 - Type 2 diabetes mellitus without complications (6) Encephalopathy Current Visit: Yes Status: Acute Background toxic/metabolic encephalopathy, currently medically sedated (7) Status post colon resection Current Visit: Yes Status: Acute Management per general surgery (8) Poor prognosis Current Visit: Yes Status: Acute Considering multiple diagnoses, comorbidities and length of stay patient's prognosis is poor Palliative care consultation yesterday for assistance in goals of care/CODE STATUS/prognosis discussion with family There will be a repeat meeting today at noon, anticipate change of CODE STATUS to DNR/CCA Subjective Principal diagnosis: Postop colectomy and colostomy Interval history: No acute events overnight, patient continues to be mechanically ventilated, continuous renal replacement therapy. Palliative care consulted yesterday for goals of care and prognosis and CODE STATUS discussion. Another family meeting will be had at noon today, anticipate decision to change CODE STATUS to DNR/CCA. Objective PUL Vital signs: Last Vital Signs Temp 97 F L 01/26/19 08:00 Pulse 74 01/26/19 08:00 Resp 26 01/26/19 08:00 BP 109/54 01/26/19 08:00 Pulse Ox 94 01/26/19 08:00 General appearance: other (Medically sedated) ENT: other (ET tube and OG tube present) Neck: supple Effort: other (Mechanically ventilated) Auscultation: bilateral: rhonchi Cardiovascular: regular rate and rhythm Gastrointestinal: absent bowel sounds, soft, other (Midline abdominal surgical wound present) Integumentary: normal Extremities: no cyanosis, no ischemia or petechiae, edema Musculoskeletal: no deformities other (Medically sedated) Ventilator Settings Ventilator Settings: Ventilator Settings, Last 8 Hours Ventilator Tidal Volume 500 Setting Ventilator Tidal Volume 500 Setting Ventilator Tidal Volume 500 Setting Ventilator Tidal Volume 500 Setting Ventilator Tidal Volume 500 Setting Ventilator Tidal Volume 500 Setting Ventilator Tidal Volume 500 Setting Ventilator Tidal Volume 500 Setting Ventilator Tidal Volume 500 Setting Ventilator Tidal Volume 500 Setting Ventilator Tidal Volume 500 Setting Ventilator Tidal Volume 500 Setting Ventilator Respiratory Rate 26 Setting Ventilator Respiratory Rate 26 Setting Ventilator Respiratory Rate 26 Setting Ventilator Respiratory Rate 28 Setting Ventilator Respiratory Rate 26 Setting Ventilator Respiratory Rate 26 Setting Ventilator Respiratory Rate 28 Setting Ventilator Respiratory Rate 26 Setting Ventilator Respiratory Rate 26 Setting Ventilator Respiratory Rate 26 Setting Ventilator Respiratory Rate 26 Setting Ventilator Respiratory Rate 26 Setting Actual Respiratory Rate 26 Actual Respiratory Rate 26 Actual Respiratory Rate 26 Actual Respiratory Rate 28 Actual Respiratory Rate 28 Actual Respiratory Rate 28 Actual Respiratory Rate 30 Actual Respiratory Rate 28 Actual Respiratory Rate 29 Actual Respiratory Rate 26 Actual Respiratory Rate 26 Positive End Expiratory 5 Pressure Positive End Expiratory 5 Pressure Positive End Expiratory 5 Pressure Positive End Expiratory 5 Pressure Positive End Expiratory 5 Pressure Positive End Expiratory 5 Pressure Positive End Expiratory 5 Pressure Positive End Expiratory 5 Pressure Positive End Expiratory 5 Pressure Positive End Expiratory 5 Pressure Positive End Expiratory 5 Pressure Positive End Expiratory 5 Pressure Peak Inspiratory Airway 30 Pressure Peak Inspiratory Airway 29 Pressure Peak Inspiratory Airway 29 Pressure Peak Inspiratory Airway 31 Pressure Peak Inspiratory Airway 28 Pressure Peak Inspiratory Airway 31 Pressure Peak Inspiratory Airway 32 Pressure Peak Inspiratory Airway 33 Pressure Peak Inspiratory Airway 30 Pressure Peak Inspiratory Airway 31 Pressure Peak Inspiratory Airway 31 Pressure Results - Laboratory Findings CBC and BMP: 01/26/19 04:25 01/26/19 04:25 ABG ABG pH 7.34 pH Units (7.32-7.45) 01/26/19 04:43 ABG pCO2 45 mmHg (35-45) 01/26/19 04:43 ABG pO2 62 mmHg (85-104) L 01/26/19 04:43 ABG O2 Saturation 90 % (95-98) L 01/26/19 04:43 PT/INR, D-dimer PT 15.5 Seconds (9.4-12.1) H 01/14/19 17:30 Abnormal lab findings: Abnormal lab results WBC 23.1 K/mcL (4.3-11.1) H 01/26/19 04:25 RBC 2.68 M/mcL (4.19-5.50) L 01/26/19 04:25 Hgb 7.6 g/dL (12.9-16.9) L 01/26/19 04:25 Hct 24.5 % (37.5-50.1) L 01/26/19 04:25 MCH 27.9 pg (28.0-33.3) L 01/23/19 04:51 MCHC 31.0 g/dL (31.6-35.5) L 01/26/19 04:25 RDW 18.5 % (11.5-14.5) H 01/26/19 04:25 Plt Count 499 K/mcL (140-400) H 01/20/19 04:25 18.0 % (0-4) H 01/26/19 04:25 6.0 % (0) H 01/26/19 04:25 2.0 % (0) H 01/26/19 04:25 18.0 K/mcL (1.6-8.9) H 01/26/19 04:25 0.3 K/mcL (0.6-4.6) L 01/24/19 03:50 1.4 K/mcL (0.0-1.3) H 01/26/19 04:25 Nucleated RBCs/100 WBC 0.7 /100 WBC (0) H 01/26/19 04:25 Present (Not Present) A 01/21/19 04:00 Increased (Normal) H 01/20/19 04:25 Present (Not Present) A 01/13/19 04:00 1+ (Not Present) A 01/23/19 04:51 Present (Not Present) A 01/26/19 04:25 1+ (Not Present) A 01/26/19 04:25 Present (Not Present) A 01/13/19 04:00 1+ (Not Present) A 01/11/19 03:45 1+ (Not Present) A 01/11/19 03:45 ESR >= 130 mm/hr (0-10) H 01/17/19 04:20 PT 15.5 Seconds (9.4-12.1) H 01/14/19 17:30 APTT 23.2 Seconds (26.0-36.0) L D 01/14/19 17:30 Heparin Anti-Xa, Unfract 0.22 IU/mL (0.30-0.70) L 01/25/19 08:58 ABG pH 7.21 pH Units (7.32-7.45) L 01/24/19 04:39 ABG pCO2 46 mmHg (35-45) H 01/23/19 05:26 ABG pO2 62 mmHg (85-104) L 01/26/19 04:43 ABG HCO3 17 mEq/L (21-27) L 01/24/19 04:39 ABG Total CO2 18 mEq/L (20-26) L 01/24/19 04:39 ABG O2 Saturation 90 % (95-98) L 01/26/19 04:43 ABG Base Excess -4 mEq/L (-2 to 3) L 01/25/19 05:06 Sodium 132 mEq/L (136-145) L 01/26/19 04:25 Potassium 5.4 mEq/L (3.5-5.1) H 01/20/19 20:00 Chloride 110 mEq/L (98-107) H 01/21/19 04:00 Carbon Dioxide 21 mEq/L (23-29) L 01/25/19 03:30 BUN 24 mg/dL (8-23) H 01/26/19 04:25 1.86 mg/dL (0.70-1.30) H 01/25/19 03:30 Est GFR ( Amer) 43 (> 60) L 01/25/19 03:30 Est GFR (Non-Af Amer) 55 (> 60) L 01/26/19 04:25 28 (6-26) H 01/21/19 14:00 Glucose 180 mg/dL (70-105) H 01/26/19 04:25 POC Glucose 148 mg/dL (70-99) H 01/26/19 02:11 6.2 % (-5.6) H 01/07/19 08:46 306 (280-300) H 01/23/19 04:51 Lactic Acid 2.4 mmol/L (0.5-2.2) H 01/10/19 00:14 Calcium 8.2 mg/dL (8.6-10.3) L 01/26/19 04:25 Venous Ioniz Calcium 1.08 mmol/L (1.15-1.35) L 01/11/19 04:14 Phosphorus 2.0 mg/dL (2.7-4.5) L 01/26/19 04:25 Iron < 10 mcg/dL (65-175) L 01/18/19 05:40 98 mg/dL (203-362) L 01/18/19 05:40 AST 9 Units/L (13-39) L 01/12/19 11:21 23 Units/L (30-223) L 01/23/19 04:51 167 mg/L (Less than 10) H 01/17/19 04:20 B-Natriuretic Peptide 300 pg/mL (Less than 100) H 01/09/19 15:18 4.4 g/dL (6.4-8.9) L 01/12/19 11:21 3.0 g/dL (3.5-5.7) L 01/21/19 14:00 2.1 g/dL (2.4-3.5) L 01/12/19 11:21 11.5 mg/dL (17.0-34.0) L 01/17/19 04:20 Triglycerides 179 mg/dL (< 150) H 01/10/19 04:15 6 Units/L (11-82) L 01/07/19 08:46 2.14 ng/mL (0.00-0.15) H 01/16/19 16:09 Turbid (Clear) A 01/22/19 10:50 Ur Specific [place] 1.026 (1.010-1.025) H 01/22/19 10:50 >=300 mg/dL (Neg-Trace) H 01/22/19 10:50 Trace mg/dL (Negative) H 01/22/19 10:50 Large (Negative) H 01/22/19 10:50 Ur Leukocyte Esterase Moderate (Negative) H 01/22/19 10:50 3-5 per hpf (0-3) H 01/22/19 10:50 15-30 per hpf (0-3) H 01/22/19 10:50 Ur Squamous Epith Cells Many per lpf (None-Few) H 01/07/19 11:03 Amorphous Sediment Moderate (Few) H 01/22/19 10:50 Many per hpf (None-Few) H 01/07/19 11:03 Ur Culture Indicated? YES (NO) A 01/22/19 10:50 Fluid Appearance Cloudy (Clear) A 01/19/19 08:30 Positive (Negative) A 01/17/19 08:42 Vancomycin Trough 28 mcg/mL (5-10) H 01/22/19 12:47 Crossmatch See Detail 01/17/19 12:25 - Microbiology Findings Microbiology Findings: Microbiology, Last 48 Hours 01/19/19 08:30 Legionella Culture - Preliminary Right Middle Lobe Lung 01/18/19 14:00 Anaerobic Culture - Final Aspirate No anaerobes were recovered. - Clinical Findings Intake & Output: Intake & Output 01/25/19 01/26/19 01/26/19 23:59 07:59 15:59 Intake Total 850.1 / 2652.3 1099 / 1591 492 / 1591 Output Total 2185 / 5201 1368 / 1644 276 / 1644 Balance -1334.9 / -2548.7 -269 / -53 216 / -53 Weight 109.6 kg 110 kg 110 kg Consult Discharge Plan - Plan Referrals: Ranjit Rodriguez MD [Primary Care Provider] - <Avi Steele - Last Filed: 01/26/19 13:22> Date of Encounter: 01/26/19 Assessment and Plan (1) Postoperative hypovolemic shock Current Visit: Yes Status: Acute Qualifiers: Encounter type: sequela Qualified Code(s): T81.19XS - Other postprocedural shock, sequela (2) Acute diastolic heart failure with preserved ejection fraction Current Visit: Yes Status: Acute Objective PUL Vital signs: Last Vital Signs Temp 97 F L 01/26/19 08:00 Pulse 71 01/26/19 12:00 Resp 22 01/26/19 12:00 BP 109/48 01/26/19 12:00 Pulse Ox 94 01/26/19 12:00 Ventilator Settings Ventilator Settings: Ventilator Settings, Last 8 Hours Ventilator Tidal Volume 500 Setting Ventilator Tidal Volume 500 Setting Ventilator Tidal Volume 500 Setting Ventilator Tidal Volume 500 Setting Ventilator Tidal Volume 500 Setting Ventilator Tidal Volume 500 Setting Ventilator Tidal Volume 500 Setting Ventilator Tidal Volume 500 Setting Ventilator Tidal Volume 500 Setting Ventilator Tidal Volume 500 Setting Ventilator Tidal Volume 500 Setting Ventilator Respiratory Rate 22 Setting Ventilator Respiratory Rate 22 Setting Ventilator Respiratory Rate 22 Setting Ventilator Respiratory Rate 22 Setting Ventilator Respiratory Rate 22 Setting Ventilator Respiratory Rate 26 Setting Ventilator Respiratory Rate 26 Setting Ventilator Respiratory Rate 26 Setting Ventilator Respiratory Rate 26 Setting Ventilator Respiratory Rate 26 Setting Ventilator Respiratory Rate 28 Setting Actual Respiratory Rate 22 Actual Respiratory Rate 24 Actual Respiratory Rate 24 Actual Respiratory Rate 24 Actual Respiratory Rate 26 Actual Respiratory Rate 27 Actual Respiratory Rate 26 Actual Respiratory Rate 30 Actual Respiratory Rate 26 Actual Respiratory Rate 26 Actual Respiratory Rate 28 Positive End Expiratory 5 Pressure Positive End Expiratory 5 Pressure Positive End Expiratory 5 Pressure Positive End Expiratory 5 Pressure Positive End Expiratory 5 Pressure Positive End Expiratory 5 Pressure Positive End Expiratory 5 Pressure Positive End Expiratory 5 Pressure Positive End Expiratory 5 Pressure Positive End Expiratory 5 Pressure Positive End Expiratory 5 Pressure Peak Inspiratory Airway 25 Pressure Peak Inspiratory Airway 26 Pressure Peak Inspiratory Airway 31 Pressure Peak Inspiratory Airway 25 Pressure Peak Inspiratory Airway 31 Pressure Peak Inspiratory Airway 32 Pressure Peak Inspiratory Airway 30 Pressure Peak Inspiratory Airway 31 Pressure Peak Inspiratory Airway 29 Pressure Peak Inspiratory Airway 29 Pressure Peak Inspiratory Airway 31 Pressure Results - Laboratory Findings CBC and BMP: 01/26/19 04:25 01/26/19 04:25 ABG ABG pH 7.34 pH Units (7.32-7.45) 01/26/19 04:43 ABG pCO2 45 mmHg (35-45) 01/26/19 04:43 ABG pO2 62 mmHg (85-104) L 01/26/19 04:43 ABG O2 Saturation 90 % (95-98) L 01/26/19 04:43 PT/INR, D-dimer PT 15.5 Seconds (9.4-12.1) H 01/14/19 17:30 Abnormal lab findings: Abnormal lab results WBC 23.1 K/mcL (4.3-11.1) H 01/26/19 04:25 RBC 2.68 M/mcL (4.19-5.50) L 01/26/19 04:25 Hgb 7.6 g/dL (12.9-16.9) L 01/26/19 04:25 Hct 24.5 % (37.5-50.1) L 01/26/19 04:25 MCH 27.9 pg (28.0-33.3) L 01/23/19 04:51 MCHC 31.0 g/dL (31.6-35.5) L 01/26/19 04:25 RDW 18.5 % (11.5-14.5) H 01/26/19 04:25 Plt Count 499 K/mcL (140-400) H 01/20/19 04:25 18.0 % (0-4) H 01/26/19 04:25 6.0 % (0) H 01/26/19 04:25 2.0 % (0) H 01/26/19 04:25 18.0 K/mcL (1.6-8.9) H 01/26/19 04:25 0.3 K/mcL (0.6-4.6) L 01/24/19 03:50 1.4 K/mcL (0.0-1.3) H 01/26/19 04:25 Nucleated RBCs/100 WBC 0.7 /100 WBC (0) H 01/26/19 04:25 Present (Not Present) A 01/21/19 04:00 Increased (Normal) H 01/20/19 04:25 Present (Not Present) A 01/13/19 04:00 1+ (Not Present) A 01/23/19 04:51 Present (Not Present) A 01/26/19 04:25 1+ (Not Present) A 01/26/19 04:25 Present (Not Present) A 01/13/19 04:00 1+ (Not Present) A 01/11/19 03:45 1+ (Not Present) A 01/11/19 03:45 ESR >= 130 mm/hr (0-10) H 01/17/19 04:20 PT 15.5 Seconds (9.4-12.1) H 01/14/19 17:30 APTT 23.2 Seconds (26.0-36.0) L D 01/14/19 17:30 Heparin Anti-Xa, Unfract 0.22 IU/mL (0.30-0.70) L 01/25/19 08:58 ABG pH 7.21 pH Units (7.32-7.45) L 01/24/19 04:39 ABG pCO2 46 mmHg (35-45) H 01/23/19 05:26 ABG pO2 62 mmHg (85-104) L 01/26/19 04:43 ABG HCO3 17 mEq/L (21-27) L 01/24/19 04:39 ABG Total CO2 18 mEq/L (20-26) L 01/24/19 04:39 ABG O2 Saturation 90 % (95-98) L 01/26/19 04:43 ABG Base Excess -4 mEq/L (-2 to 3) L 01/25/19 05:06 Sodium 132 mEq/L (136-145) L 01/26/19 04:25 Potassium 5.4 mEq/L (3.5-5.1) H 01/20/19 20:00 Chloride 110 mEq/L (98-107) H 01/21/19 04:00 Carbon Dioxide 21 mEq/L (23-29) L 01/25/19 03:30 BUN 24 mg/dL (8-23) H 01/26/19 04:25 1.86 mg/dL (0.70-1.30) H 01/25/19 03:30 Est GFR ( Amer) 43 (> 60) L 01/25/19 03:30 Est GFR (Non-Af Amer) 55 (> 60) L 01/26/19 04:25 28 (6-26) H 01/21/19 14:00 Glucose 180 mg/dL (70-105) H 01/26/19 04:25 POC Glucose 160 mg/dL (70-99) H 01/26/19 08:45 6.2 % (-5.6) H 01/07/19 08:46 306 (280-300) H 01/23/19 04:51 Lactic Acid 2.4 mmol/L (0.5-2.2) H 01/10/19 00:14 Calcium 8.2 mg/dL (8.6-10.3) L 01/26/19 04:25 Venous Ioniz Calcium 1.08 mmol/L (1.15-1.35) L 01/11/19 04:14 Phosphorus 2.0 mg/dL (2.7-4.5) L 01/26/19 04:25 Iron < 10 mcg/dL (65-175) L 01/18/19 05:40 98 mg/dL (203-362) L 01/18/19 05:40 AST 9 Units/L (13-39) L 01/12/19 11:21 23 Units/L (30-223) L 01/23/19 04:51 167 mg/L (Less than 10) H 01/17/19 04:20 B-Natriuretic Peptide 300 pg/mL (Less than 100) H 01/09/19 15:18 4.4 g/dL (6.4-8.9) L 01/12/19 11:21 3.0 g/dL (3.5-5.7) L 01/21/19 14:00 2.1 g/dL (2.4-3.5) L 01/12/19 11:21 11.5 mg/dL (17.0-34.0) L 01/17/19 04:20 Triglycerides 179 mg/dL (< 150) H 01/10/19 04:15 6 Units/L (11-82) L 01/07/19 08:46 2.14 ng/mL (0.00-0.15) H 01/16/19 16:09 Turbid (Clear) A 01/22/19 10:50 Ur Specific [place] 1.026 (1.010-1.025) H 01/22/19 10:50 >=300 mg/dL (Neg-Trace) H 01/22/19 10:50 Trace mg/dL (Negative) H 01/22/19 10:50 Large (Negative) H 01/22/19 10:50 Ur Leukocyte Esterase Moderate (Negative) H 01/22/19 10:50 3-5 per hpf (0-3) H 01/22/19 10:50 15-30 per hpf (0-3) H 01/22/19 10:50 Ur Squamous Epith Cells Many per lpf (None-Few) H 01/07/19 11:03 Amorphous Sediment Moderate (Few) H 01/22/19 10:50 Many per hpf (None-Few) H 01/07/19 11:03 Ur Culture Indicated? YES (NO) A 01/22/19 10:50 Fluid Appearance Cloudy (Clear) A 01/19/19 08:30 Positive (Negative) A 01/17/19 08:42 Vancomycin Trough 28 mcg/mL (5-10) H 01/22/19 12:47 Crossmatch See Detail 01/17/19 12:25 - Microbiology Findings Microbiology Findings: Microbiology, Last 48 Hours 01/18/19 14:00 Fungal Culture - Preliminary Aspirate Yeast Species 01/19/19 08:30 Acid Fast Stain - Final Right Middle Lobe Lung 01/19/19 08:30 Fungal Culture - Preliminary Right Middle Lobe Lung Deirdre albicans 01/19/19 08:30 Legionella Culture - Preliminary Right Middle Lobe Lung 01/18/19 14:00 Anaerobic Culture - Final Aspirate No anaerobes were recovered. - Clinical Findings Intake & Output: Intake & Output 01/25/19 01/26/19 01/26/19 23:59 07:59 15:59 Intake Total 850.1 / 2652.3 1099 / 2108 1009 / 2108 Output Total 2185 / 5201 1368 / 2853 1485 / 2853 Balance -1334.9 / -2548.7 -269 / -745 -476 / -745 Weight 109.6 kg 110 kg 110 kg - Attending Attestation I examined this patient and my medical decision-making was reviewed with the Resident Physician. I agree with the documented findings, disposition and treatment plan as described except to the extent set forth below. We neal brooke had koch-qa-[id number] contact with the patient I spent 33min of Critical Care time with this patient. It involved decision making of high complexity to assess, manipulate, and support vital organ system failure and/or to prevent further life threatening deterioration of the patient's condition. The time involved in the performance of separately reportable procedures was not counted toward critical care time. Patient seen and examined at bedside Labs, radiology, chart personally reviewed. Management was reviewed during multidisciplinary critical care rounds. Impression/plan #1 acute hypoxic hypercapnic respiratory failure remains on vent with increased minute ventilation to accommodate for metabolic acidosis has persistent hypoxe noemí secondary to pneumonia and hydrostatic pulmonary edema not a candidate for liberation from the vent today #2 encephalopathy secondary to metabolic derangements #3 acute kidney injury requiring continuous renal replacement therapy remains and uric nephrology following #4 septic shock secondary to intra-abdominal infection and aspiration pneumonia remains on vasopressor support for goal mean arterial pressure around 65 #5 severe metabolic acidosis secondary to renal failure on CRRT #6 goals of care discussion patient and requested that he not be On ventilator for more than "a couple of days" as outlined in his living well palliative care is following with this patient and family deciding on goals of care likely transition to hospice
[2019-01-26] MEDS: Insulin Human Regular 100 UNIT in 0.9 % Sodium Chloride 100 ML IVC SCH (10:50)
--- NOTE | 2019-01-26 11:47 | Event Note ---
Date of Encounter: 01/26/19 Time of Encounter: 09:45 Patient was seen at bedside. I spoke with the patient's family who stated that, to her understanding, the plan today is for compassionate extubation and discontinuation of treatment. I relayed this to Dr. Herrera, and if this plan of action is to be followed, Infectious diseases will sign off at this time. Thank you for involving us in the care of this patient.
[2019-01-26 12:04] VITALS: BP 109/48
[2019-01-26] MEDS ORDERED: *HR* LORazepam 2 MG/ML VIAL IVP PRN (12:12)
[2019-01-26] MEDS ORDERED: Atropine 1% Opth Drops 100 DROP/5 ML BOTTLE SL PRN (12:15)
[2019-01-26] MEDS ORDERED: Scopolamine Patch 1.5 MG PATCH.TD72 TD ONE (12:15)
--- NOTE | 2019-01-26 12:39 | AcuteCareSurgery Progress Note ---
<Lu Calix - Last Filed: 01/26/19 12:43> Date of Encounter: 01/26/19 Time of Encounter: 12:36 - Assessment and Plan (1) Colon obstruction Status: Acute Postop day 18 colostomy revision G-tube placement Remains intubated, sedated Colostomy continues to have output, sweat on colostomy bag No bowel sounds today Continues to have increasing leukocytosis, currently 23.1 Family meeting today to discuss goals of care-compassionate extubation versus continuation of aggressive measures. (2) Sepsis Status: Acute Continues to have increasing leukocytosis at 23.1, mildly hypothermic, temperature 97, bear hugger in place Aspiration pneumonia, wound infection Continue IV antibiotics ICU team to manage Qualifiers: Sepsis type: sepsis due to unspecified organism Qualified Code(s): A41.9 - Sepsis, unspecified organism (3) Acute respiratory failure with hypoxia Status: Acute Patient intubated, sedated in the ICU ICU team to manage vent (4) TONO (acute kidney injury) Status: Acute Currently on jaylin (5) DVT prophylaxis Status: Acute SCDs Subjective Narrative: Patient seen and examined at bedside today. Family is present and will undergo goals of care discussion with palliative team, possibly proceeding with compassionate extubation today. He continues to have increasing leukocytosis, is on Jaylin for acute renal failure. Objective Vital Signs - Last 8 Hours Temp Pulse Resp BP Pulse Ox 01/26/19 12:00 71 22 109/48 94 01/26/19 11:10 24 104/46 93 01/26/19 11:00 70 24 106/50 94 01/26/19 10:00 71 24 111/50 93 01/26/19 09:05 26 108/48 93 01/26/19 09:00 71 27 106/49 93 01/26/19 08:00 97 F L 74 26 109/54 94 01/26/19 07:20 30 114/47 93 01/26/19 07:00 70 26 114/47 94 01/26/19 06:00 70 26 98/48 94 01/26/19 05:46 28 109/44 94 01/26/19 05:00 73 28 107/51 93 Intake and Output 01/25/19 01/26/19 01/26/19 23:59 07:59 15:59 Intake Total 850.1 / 2652.3 1099 / 2071 97 / 2070 Output Total 2185 / 5201 1368 / 2853 1485 / 2853 Balance -1334.9 / -2548.7 -269 / -782 -513 / -782 Intake: IV Fluids 838.1 / 2516.3 109 / 2070 97 / 2070 PrismaSATE BGK 4/2.5 5,000 ML @ 0 / 0 0 / 0 1000 mls/hr CRRT [facility] Rx#: [id number] FentaNYL (PF) 1,000 MCG In 0.9 100 / 413 137 / 195 58 / 195 % Sodium Chloride 80 ML @ 50 MCG/HR 5 mls/hr IVC [facility] Rx #:[id number] Heparin 25,000 UNIT/250 ML D5W 296 / 353 57 / 353 25,000 unit In 250 ml @ 9.12 UNIT/KG/HR 9.996 mls/hr IVC . Q24H [facility] Rx#:[id number] HumuLIN R 100 UNIT In 0.9 % 30.1 / 64.3 39 / 58 19 / 58 Sodium Chloride 100 ML @ 4.7 UNIT/HR 4.747 mls/hr IVC [facility] Rx#:[id number] Clinimix E 5%-15% SOLUTION 2, 55 / 337 282 / 337 000 ML @ 83.3 mls/hr IVC .Q24H [facility] with M.v.i. Adult 10 ml Rx# :[id number] Levophed 8 MG In Dextrose 5% 165 / 359 188 / 263 75 / 263 250 ML @ 8 MCG/MIN 15.48 mls/hr IVC [facility] Rx#:[id number] Diprivan 1,000 mg In 100 ml @ 5 173 / 492 187 / 245 58 / 245 MCG/KG/MIN 2.859 mls/hr IVC . Q24H [facility] Rx#:[id number] Maxipime 2,000 MG In Water for 20 / 40 20 / 20 inj. (sterile) 20 ML @ 300 mls/ hr IVP Q12H [facility] Rx#:[id number] Cleocin Premix 600 MG/50 ML 600 50 / 150 62 / 100 38 / 100 mg In 50 ml @ 50 mls/hr IVPB Q8HR [facility] Rx#:[id number] Diflucan Premix 400 MG/200 ML 20 / 200 180 / 200 400 mg In 200 ml @ 200 mls/hr IVPB DAILY [facility] Rx#:[id number] Zyvox Premix 600mg/300mL 600 mg 300 / 600 95 / 300 205 / 300 In 300 ml @ 150 mls/hr IVPB Q12HR [facility] Rx#:[id number] 0.9 % Sodium Chloride 1,000 ML 0 / 0 @ 1000 mls/hr PRIME .Q1H PRN Rx #:[id number] Tube Feeding Output: Stool 75 / 160 50 / 50 Catheter 426 Gastric Drainage 500 / 600 150 / 200 50 / 200 Wound Drainage 0 / 0 0 / 0 Left Abd, FARIDA # 2 0 / 0 0 / 0 Left Abd, FARIDA #1 0 / 0 0 / 0 Fluid Removed by Prismaflex 1582 / 3992 1158 / 2583 1425 / 2583 Other: Weight 109.6 kg 110 kg 110 kg Blood Glucose* 161 168 142 Patient Weight 01/26/19 23:59 Weight 110 kg - General physical appearance well nourished, no distress, other (Intubated, sedated) - Eyes PERRL - ENT dry mucosa - Neck Neck exam: trachea midline, no venous distension - Respiratory normal expansion, other (Bilateral rhonchi, coarse breath sounds) - Cardiovascular Cardiovascular exam: Present: RRR, no murmurs/rubs/gallops. Absent: JVD - Abdomen Abdomen: Present: distended (No bowel sounds present, firm). Absent: guarding, rebound - Incision Incision: Present: clean and dry, intact (FARIDA drains 2 have scant serous fluid present) - Integumentary no rash, other (Pallor) - Neurologic other (Intubated, sedated) - Musculoskeletal normal posture - Psychiatric other (Intubated, sedated) - Labs 01/26/19 04:25 01/26/19 04:25 Diabetes panel 01/26/19 Range/Units 04:25 Sodium 132 L (136-145) mEq/L Potassium 3.6 (3.5-5.1) mEq/L Chloride 100 (98-107) mEq/L Carbon Dioxide 23 (23-29) mEq/L BUN 24 H (8-23) mg/dL Creatinine 1.28 (0.70-1.30) mg/dL Glucose 180 H (70-105) mg/dL Calcium 8.2 L (8.6-10.3) mg/dL Calcium panel 01/26/19 Range/Units 04:25 Calcium 8.2 L (8.6-10.3) mg/dL Phosphorus 2.0 L (2.7-4.5) mg/dL Pituitary panel 01/26/19 Range/Units 04:25 Sodium 132 L (136-145) mEq/L Potassium 3.6 (3.5-5.1) mEq/L Chloride 100 (98-107) mEq/L Carbon Dioxide 23 (23-29) mEq/L BUN 24 H (8-23) mg/dL Creatinine 1.28 (0.70-1.30) mg/dL Glucose 180 H (70-105) mg/dL Calcium 8.2 L (8.6-10.3) mg/dL Adrenal panel 01/26/19 Range/Units 04:25 Sodium 132 L (136-145) mEq/L Potassium 3.6 (3.5-5.1) mEq/L Chloride 100 (98-107) mEq/L Carbon Dioxide 23 (23-29) mEq/L BUN 24 H (8-23) mg/dL Creatinine 1.28 (0.70-1.30) mg/dL Glucose 180 H (70-105) mg/dL Calcium 8.2 L (8.6-10.3) mg/dL Consult Discharge Plan - Plan Referrals: Ranjit Rodriguez MD [Primary Care Provider] - <Manuela Marcelo - Last Filed: 01/26/19 19:06> Date of Encounter: 01/26/19 - Assessment and Plan (1) Colon obstruction Status: Acute (2) Acute on chronic renal insufficiency Status: Resolved (3) Diabetes Status: Acute Qualifiers: 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 Diabetes mellitus complication status: without complication Qualified Code(s): E11.9 - Type 2 diabetes mellitus without complications (4) Essential hypertension Status: Chronic (5) Acute respiratory failure Status: Acute Qualifiers: Respiratory failure complication: hypoxia Qualified Code(s): J96.01 - Acute respiratory failure with hypoxia (6) Atrial fibrillation Status: Chronic Qualifiers: Atrial fibrillation type: paroxysmal Qualified Code(s): I48.0 - Paroxysmal atrial fibrillation Objective Vital Signs - Last 8 Hours Pulse Resp BP Pulse Ox 01/26/19 12:00 71 22 109/48 94 01/26/19 11:10 24 104/46 93 Intake and Output 01/26/19 01/26/19 01/26/19 07:59 15:59 23:59 Intake Total 1099 / 2108 1009 / 2108 Output Total 1368 / 2853 1485 / 2853 Balance -269 / -745 -476 / -745 Intake: IV Fluids 1099 / 2108 1009 / 2108 PrismaSATE BGK 4/2.5 5,000 ML @ 0 / 0 1000 mls/hr CRRT [facility] Rx#: [id number] FentaNYL (PF) 1,000 MCG In 0.9 137 / 200 63 / 200 % Sodium Chloride 80 ML @ 50 MCG/HR 5 mls/hr IVC [facility] Rx #:[id number] Heparin 25,000 UNIT/250 ML D5W 296 / 367 71 / 367 25,000 unit In 250 ml @ 9.12 UNIT/KG/HR 9.996 mls/hr IVC . Q24H [facility] Rx#:[id number] HumuLIN R 100 UNIT In 0.9 % 39 / 58 19 / 58 Sodium Chloride 100 ML @ 4.7 UNIT/HR 4.747 mls/hr IVC [facility] Rx#:[id number] Clinimix E 5%-15% SOLUTION 2, 55 / 337 282 / 337 000 ML @ 83.3 mls/hr IVC .Q24H [facility] with M.v.i. Adult 10 ml Rx# :[id number] Levophed 8 MG In Dextrose 5% 188 / 263 75 / 263 250 ML @ 8 MCG/MIN 15.48 mls/hr IVC [facility] Rx#:[id number] Diprivan 1,000 mg In 100 ml @ 5 187 / 263 76 / 263 MCG/KG/MIN 2.859 mls/hr IVC . Q24H [facility] Rx#:[id number] Maxipime 2,000 MG In Water for 20 / 20 inj. (sterile) 20 ML @ 300 mls/ hr IVP Q12H [facility] Rx#:[id number] Cleocin Premix 600 MG/50 ML 600 62 / 100 38 / 100 mg In 50 ml @ 50 mls/hr IVPB Q8HR [facility] Rx#:[id number] Diflucan Premix 400 MG/200 ML 20 / 200 180 / 200 400 mg In 200 ml @ 200 mls/hr IVPB DAILY [facility] Rx#:[id number] Zyvox Premix 600mg/300mL 600 mg 95 / 300 205 / 300 In 300 ml @ 150 mls/hr IVPB Q12HR [facility] Rx#:[id number] 0.9 % Sodium Chloride 1,000 ML 0 / 0 @ 1000 mls/hr PRIME .Q1H [facility] Rx #:[id number] Oral 0 / 0 Output: Stool 50 / 50 Catheter 10 / 20 10 / 20 Gastric Drainage 150 / 200 50 / 200 Wound Drainage 0 / 0 0 / 0 Left Abd, FARIDA # 2 0 / 0 0 / 0 Left Abd, FARIDA #1 0 / 0 0 / 0 Fluid Removed by Prismaflex 1158 / 2583 1425 / 2583 Other: Weight 110 kg 110 kg Blood Glucose* 168 142 Patient Weight 01/26/19 23:59 Weight 110 kg - Labs 01/26/19 04:25 01/26/19 04:25 Diabetes panel 01/26/19 Range/Units 04:25 Sodium 132 L (136-145) mEq/L Potassium 3.6 (3.5-5.1) mEq/L Chloride 100 (98-107) mEq/L Carbon Dioxide 23 (23-29) mEq/L BUN 24 H (8-23) mg/dL Creatinine 1.28 (0.70-1.30) mg/dL Glucose 180 H (70-105) mg/dL Calcium 8.2 L (8.6-10.3) mg/dL Calcium panel 01/26/19 Range/Units 04:25 Calcium 8.2 L (8.6-10.3) mg/dL Phosphorus 2.0 L (2.7-4.5) mg/dL Pituitary panel 01/26/19 Range/Units 04:25 Sodium 132 L (136-145) mEq/L Potassium 3.6 (3.5-5.1) mEq/L Chloride 100 (98-107) mEq/L Carbon Dioxide 23 (23-29) mEq/L BUN 24 H (8-23) mg/dL Creatinine 1.28 (0.70-1.30) mg/dL Glucose 180 H (70-105) mg/dL Calcium 8.2 L (8.6-10.3) mg/dL Adrenal panel 01/26/19 Range/Units 04:25 Sodium 132 L (136-145) mEq/L Potassium 3.6 (3.5-5.1) mEq/L Chloride 100 (98-107) mEq/L Carbon Dioxide 23 (23-29) mEq/L BUN 24 H (8-23) mg/dL Creatinine 1.28 (0.70-1.30) mg/dL Glucose 180 H (70-105) mg/dL Calcium 8.2 L (8.6-10.3) mg/dL - Attending Attestation I examined this patient and my medical decision-making was reviewed with the Resident Physician. I agree with the documented findings, disposition and treatment plan as described except to the extent set forth below. Pt condition is terminal. Many discussions with family and palliative care have been had. The [facility] surgery team will continue to follow and support the patient's comfort needs until no longer needed.
[2019-01-26] MEDS ORDERED: 0.9 % Sodium Chloride 1,000 ML ONE (12:45)
--- NOTE | 2019-01-26 15:38 | Palliative Progress Note ---
Date of Encounter: 01/26/19 Time of Encounter: 11:45 - Assessment and plan (1) Acute diastolic heart failure with preserved ejection fraction Current Visit: Yes Status: Acute (2) Acute kidney injury superimposed on CKD Current Visit: Yes Status: Acute Assessment and plan: CRRT discontinued. (3) Acute respiratory failure with hypoxia Current Visit: Yes Status: Acute Assessment and plan: Patient extubed at 1302. (4) Goals of care, counseling/discussion Current Visit: Yes Status: Acute Assessment and plan: Prior to meeting with patient's family, Chaplian [facility] offered Spiritual support. Met with patient/family regarding goals of care. Patient intubated, unable to participate. Decision was made by Kuldip LOCKE to compassionately withdraw care. Order was placed for meds for comfort. CODE STATUS changed to DNRCC. If patient stable, may transfer to hospitalist service to Palliative care bed. (5) Palliative care encounter Current Visit: Yes Status: Acute - Time Spent With Patient Total time spent is greater than 50% in coordination of care (as documented) at patient's floor/unit and/or counseling patient: - Subjective Interval history: Patient resting in bed with eyes closed, intubated and sedated upon arrival. Family at bedside. CRRT being utilized. - Constitutional Vitals: Abnormal lab results WBC 23.1 K/mcL (4.3-11.1) H 01/26/19 04:25 RBC 2.68 M/mcL (4.19-5.50) L 01/26/19 04:25 Hgb 7.6 g/dL (12.9-16.9) L 01/26/19 04:25 Hct 24.5 % (37.5-50.1) L 01/26/19 04:25 MCH 27.9 pg (28.0-33.3) L 01/23/19 04:51 MCHC 31.0 g/dL (31.6-35.5) L 01/26/19 04:25 RDW 18.5 % (11.5-14.5) H 01/26/19 04:25 Plt Count 499 K/mcL (140-400) H 01/20/19 04:25 18.0 % (0-4) H 01/26/19 04:25 6.0 % (0) H 01/26/19 04:25 2.0 % (0) H 01/26/19 04:25 18.0 K/mcL (1.6-8.9) H 01/26/19 04:25 0.3 K/mcL (0.6-4.6) L 01/24/19 03:50 1.4 K/mcL (0.0-1.3) H 01/26/19 04:25 Nucleated RBCs/100 WBC 0.7 /100 WBC (0) H 01/26/19 04:25 Present (Not Present) A 01/21/19 04:00 Increased (Normal) H 01/20/19 04:25 Present (Not Present) A 01/13/19 04:00 1+ (Not Present) A 01/23/19 04:51 Present (Not Present) A 01/26/19 04:25 1+ (Not Present) A 01/26/19 04:25 Present (Not Present) A 01/13/19 04:00 1+ (Not Present) A 01/11/19 03:45 1+ (Not Present) A 01/11/19 03:45 ESR >= 130 mm/hr (0-10) H 01/17/19 04:20 PT 15.5 Seconds (9.4-12.1) H 01/14/19 17:30 APTT 23.2 Seconds (26.0-36.0) L D 01/14/19 17:30 Heparin Anti-Xa, Unfract 0.22 IU/mL (0.30-0.70) L 01/25/19 08:58 ABG pH 7.21 pH Units (7.32-7.45) L 01/24/19 04:39 ABG pCO2 46 mmHg (35-45) H 01/23/19 05:26 ABG pO2 62 mmHg (85-104) L 01/26/19 04:43 ABG HCO3 17 mEq/L (21-27) L 01/24/19 04:39 ABG Total CO2 18 mEq/L (20-26) L 01/24/19 04:39 ABG O2 Saturation 90 % (95-98) L 01/26/19 04:43 ABG Base Excess -4 mEq/L (-2 to 3) L 01/25/19 05:06 Sodium 132 mEq/L (136-145) L 01/26/19 04:25 Potassium 5.4 mEq/L (3.5-5.1) H 01/20/19 20:00 Chloride 110 mEq/L (98-107) H 01/21/19 04:00 Carbon Dioxide 21 mEq/L (23-29) L 01/25/19 03:30 BUN 24 mg/dL (8-23) H 01/26/19 04:25 1.86 mg/dL (0.70-1.30) H 01/25/19 03:30 Est GFR ( Amer) 43 (> 60) L 01/25/19 03:30 Est GFR (Non-Af Amer) 55 (> 60) L 01/26/19 04:25 28 (6-26) H 01/21/19 14:00 Glucose 180 mg/dL (70-105) H 01/26/19 04:25 POC Glucose 160 mg/dL (70-99) H 01/26/19 08:45 6.2 % (-5.6) H 01/07/19 08:46 306 (280-300) H 01/23/19 04:51 Lactic Acid 2.4 mmol/L (0.5-2.2) H 01/10/19 00:14 Calcium 8.2 mg/dL (8.6-10.3) L 01/26/19 04:25 Venous Ioniz Calcium 1.08 mmol/L (1.15-1.35) L 01/11/19 04:14 Phosphorus 2.0 mg/dL (2.7-4.5) L 01/26/19 04:25 Iron < 10 mcg/dL (65-175) L 01/18/19 05:40 98 mg/dL (203-362) L 01/18/19 05:40 AST 9 Units/L (13-39) L 01/12/19 11:21 23 Units/L (30-223) L 01/23/19 04:51 167 mg/L (Less than 10) H 01/17/19 04:20 B-Natriuretic Peptide 300 pg/mL (Less than 100) H 01/09/19 15:18 4.4 g/dL (6.4-8.9) L 01/12/19 11:21 3.0 g/dL (3.5-5.7) L 01/21/19 14:00 2.1 g/dL (2.4-3.5) L 01/12/19 11:21 11.5 mg/dL (17.0-34.0) L 01/17/19 04:20 Triglycerides 179 mg/dL (< 150) H 01/10/19 04:15 6 Units/L (11-82) L 01/07/19 08:46 2.14 ng/mL (0.00-0.15) H 01/16/19 16:09 Turbid (Clear) A 01/22/19 10:50 Ur Specific [place] 1.026 (1.010-1.025) H 01/22/19 10:50 >=300 mg/dL (Neg-Trace) H 01/22/19 10:50 Trace mg/dL (Negative) H 01/22/19 10:50 Large (Negative) H 01/22/19 10:50 Ur Leukocyte Esterase Moderate (Negative) H 01/22/19 10:50 3-5 per hpf (0-3) H 01/22/19 10:50 15-30 per hpf (0-3) H 01/22/19 10:50 Ur Squamous Epith Cells Many per lpf (None-Few) H 01/07/19 11:03 Amorphous Sediment Moderate (Few) H 01/22/19 10:50 Many per hpf (None-Few) H 01/07/19 11:03 Ur Culture Indicated? YES (NO) A 01/22/19 10:50 Fluid Appearance Cloudy (Clear) A 01/19/19 08:30 Positive (Negative) A 01/17/19 08:42 Vancomycin Trough 28 mcg/mL (5-10) H 01/22/19 12:47 Crossmatch See Detail 01/17/19 12:25 General appearance: Present: no acute distress - Head Head exam: Present: atraumatic, normal inspection - Eye Eye exam: Absent: periorbital swelling, periorbital tenderness - ENT ENT exam: Present: normal external ear exam - Neck Neck exam: Present: normal inspection - Respiratory Respiratory exam: Present: accessory muscle use, rhonchi - Cardiovascular Cardiovascular exam: Present: irregular rhythm - GI/Abdominal GI/Abdominal exam: Present: hypoactive bowel sounds - Rectal Rectal exam: Present: deferred - Extremities Exam Extremities exam: Present: normal inspection, pedal edema - Back Exam Back exam: Present: normal inspection - Neurological Exam Neurological exam: Present: altered - Psychiatric Psychiatric exam: Present: flat affect - Skin Skin exam: Present: intact, warm Palliative Quality Palliative Quality: Screen for Code Status: Yes, Screen for Goals of Care: Yes, Screen for Pain: Yes, If Pain Regimen Started, Initiate Bowel Regimen: NA, Screen for Nausea/Vomitting: NA Code Status: 01/08/19 05:54 Resuscitation Status: Active [RES] Routine Comment: Resuscitation Status: Full Code 01/26/19 12:16 DNR [Resuscitation Status: Active] [RES] Routine Comment: Resuscitation Status: DNR-Comfort Care - Labs CBC & Chem 7: 01/26/19 04:25 01/26/19 04:25 Labs: Laboratory Results - last 24 hr 01/25/19 01/25/19 01/25/19 01:48 02:36 03:33 WBC RBC Hgb Hct MCV MCH MCHC RDW Plt Count MPV Seg Neutrophils % Band Neutrophils % Lymphocytes % Monocytes % Metamyelocytes % Myelocytes % Neutrophils # Lymphocytes # Monocytes # Nucleated RBCs/100 WBC Platelet Estimate Hypochromasia Anisocytosis Heparin Anti-Xa, Unfract Sample Site ABG pH ABG pCO2 ABG pO2 ABG HCO3 ABG Total CO2 ABG O2 Saturation ABG Base Excess David Test Respiration Rate O2 Delivery Device Blood Gas Modality Inspired O2 Tidal Volume PEEP Sodium Potassium Chloride Carbon Dioxide BUN Creatinine Est GFR ( Amer) Est GFR (Non-Af Amer) BUN/Creatinine Ratio Glucose POC Glucose 160 H 161 H 148 H Calculated Osmolality Calcium Phosphorus 01/25/19 01/25/19 01/25/19 04:24 05:34 06:28 WBC RBC Hgb Hct MCV MCH MCHC RDW Plt Count MPV Seg Neutrophils % Band Neutrophils % Lymphocytes % Monocytes % Metamyelocytes % Myelocytes % Neutrophils # Lymphocytes # Monocytes # Nucleated RBCs/100 WBC Platelet Estimate Hypochromasia Anisocytosis Heparin Anti-Xa, Unfract Sample Site ABG pH ABG pCO2 ABG pO2 ABG HCO3 ABG Total CO2 ABG O2 Saturation ABG Base Excess David Test Respiration Rate O2 Delivery Device Blood Gas Modality Inspired O2 Tidal Volume PEEP Sodium Potassium Chloride Carbon Dioxide BUN Creatinine Est GFR ( Amer) Est GFR (Non-Af Amer) BUN/Creatinine Ratio Glucose POC Glucose 154 H 169 H 171 H Calculated Osmolality Calcium Phosphorus 01/25/19 01/25/19 01/25/19 07:45 09:15 10:05 WBC RBC Hgb Hct MCV MCH MCHC RDW Plt Count MPV Seg Neutrophils % Band Neutrophils % Lymphocytes % Monocytes % Metamyelocytes % Myelocytes % Neutrophils # Lymphocytes # Monocytes # Nucleated RBCs/100 WBC Platelet Estimate Hypochromasia Anisocytosis Heparin Anti-Xa, Unfract Sample Site ABG pH ABG pCO2 ABG pO2 ABG HCO3 ABG Total CO2 ABG O2 Saturation ABG Base Excess David Test Respiration Rate O2 Delivery Device Blood Gas Modality Inspired O2 Tidal Volume PEEP Sodium Potassium Chloride Carbon Dioxide BUN Creatinine Est GFR ( Amer) Est GFR (Non-Af Amer) BUN/Creatinine Ratio Glucose POC Glucose 159 H 147 H 151 H Calculated Osmolality Calcium Phosphorus 01/25/19 01/25/19 01/25/19 11:09 12:08 13:13 WBC RBC Hgb Hct MCV MCH MCHC RDW Plt Count MPV Seg Neutrophils % Band Neutrophils % Lymphocytes % Monocytes % Metamyelocytes % Myelocytes % Neutrophils # Lymphocytes # Monocytes # Nucleated RBCs/100 WBC Platelet Estimate Hypochromasia Anisocytosis Heparin Anti-Xa, Unfract Sample Site ABG pH ABG pCO2 ABG pO2 ABG HCO3 ABG Total CO2 ABG O2 Saturation ABG Base Excess David Test Respiration Rate O2 Delivery Device Blood Gas Modality Inspired O2 Tidal Volume PEEP Sodium Potassium Chloride Carbon Dioxide BUN Creatinine Est GFR ( Amer) Est GFR (Non-Af Amer) BUN/Creatinine Ratio Glucose POC Glucose 151 H 160 H 151 H Calculated Osmolality Calcium Phosphorus 01/25/19 01/25/19 01/25/19 14:24 15:06 16:10 WBC RBC Hgb Hct MCV MCH MCHC RDW Plt Count MPV Seg Neutrophils % Band Neutrophils % Lymphocytes % Monocytes % Metamyelocytes % Myelocytes % Neutrophils # Lymphocytes # Monocytes # Nucleated RBCs/100 WBC Platelet Estimate Hypochromasia Anisocytosis Heparin Anti-Xa, Unfract Sample Site ABG pH ABG pCO2 ABG pO2 ABG HCO3 ABG Total CO2 ABG O2 Saturation ABG Base Excess David Test Respiration Rate O2 Delivery Device Blood Gas Modality Inspired O2 Tidal Volume PEEP Sodium Potassium Chloride Carbon Dioxide BUN Creatinine Est GFR ( Amer) Est GFR (Non-Af Amer) BUN/Creatinine Ratio Glucose POC Glucose 157 H 154 H 162 H Calculated Osmolality Calcium Phosphorus 01/25/19 01/25/19 01/25/19 17:05 17:24 18:07 WBC RBC Hgb Hct MCV MCH MCHC RDW Plt Count MPV Seg Neutrophils % Band Neutrophils % Lymphocytes % Monocytes % Metamyelocytes % Myelocytes % Neutrophils # Lymphocytes # Monocytes # Nucleated RBCs/100 WBC Platelet Estimate Hypochromasia Anisocytosis Heparin Anti-Xa, Unfract 0.41 Sample Site ABG pH ABG pCO2 ABG pO2 ABG HCO3 ABG Total CO2 ABG O2 Saturation ABG Base Excess David Test Respiration Rate O2 Delivery Device Blood Gas Modality Inspired O2 Tidal Volume PEEP Sodium Potassium Chloride Carbon Dioxide BUN Creatinine Est GFR ( Amer) Est GFR (Non-Af Amer) BUN/Creatinine Ratio Glucose POC Glucose 157 H 168 H Calculated Osmolality Calcium Phosphorus 01/25/19 01/25/19 01/25/19 19:06 20:02 21:08 WBC RBC Hgb Hct MCV MCH MCHC RDW Plt Count MPV Seg Neutrophils % Band Neutrophils % Lymphocytes % Monocytes % Metamyelocytes % Myelocytes % Neutrophils # Lymphocytes # Monocytes # Nucleated RBCs/100 WBC Platelet Estimate Hypochromasia Anisocytosis Heparin Anti-Xa, Unfract Sample Site ABG pH ABG pCO2 ABG pO2 ABG HCO3 ABG Total CO2 ABG O2 Saturation ABG Base Excess David Test Respiration Rate O2 Delivery Device Blood Gas Modality Inspired O2 Tidal Volume PEEP Sodium Potassium Chloride Carbon Dioxide BUN Creatinine Est GFR ( Amer) Est GFR (Non-Af Amer) BUN/Creatinine Ratio Glucose POC Glucose 175 H 176 H 172 H Calculated Osmolality Calcium Phosphorus 01/25/19 01/25/19 01/25/19 22:11 23:01 23:10 WBC RBC Hgb Hct MCV MCH MCHC RDW Plt Count MPV Seg Neutrophils % Band Neutrophils % Lymphocytes % Monocytes % Metamyelocytes % Myelocytes % Neutrophils # Lymphocytes # Monocytes # Nucleated RBCs/100 WBC Platelet Estimate Hypochromasia Anisocytosis Heparin Anti-Xa, Unfract 0.40 Sample Site ABG pH ABG pCO2 ABG pO2 ABG HCO3 ABG Total CO2 ABG O2 Saturation ABG Base Excess David Test Respiration Rate O2 Delivery Device Blood Gas Modality Inspired O2 Tidal Volume PEEP Sodium Potassium Chloride Carbon Dioxide BUN Creatinine Est GFR ( Amer) Est GFR (Non-Af Amer) BUN/Creatinine Ratio Glucose POC Glucose 161 H 161 H Calculated Osmolality Calcium Phosphorus 01/26/19 01/26/19 01/26/19 00:07 01:05 02:11 WBC RBC Hgb Hct MCV MCH MCHC RDW Plt Count MPV Seg Neutrophils % Band Neutrophils % Lymphocytes % Monocytes % Metamyelocytes % Myelocytes % Neutrophils # Lymphocytes # Monocytes # Nucleated RBCs/100 WBC Platelet Estimate Hypochromasia Anisocytosis Heparin Anti-Xa, Unfract Sample Site ABG pH ABG pCO2 ABG pO2 ABG HCO3 ABG Total CO2 ABG O2 Saturation ABG Base Excess David Test Respiration Rate O2 Delivery Device Blood Gas Modality Inspired O2 Tidal Volume PEEP Sodium Potassium Chloride Carbon Dioxide BUN Creatinine Est GFR ( Amer) Est GFR (Non-Af Amer) BUN/Creatinine Ratio Glucose POC Glucose 152 H 154 H 148 H Calculated Osmolality Calcium Phosphorus 01/26/19 01/26/19 01/26/19 04:09 04:25 04:25 WBC 23.1 H RBC 2.68 L Hgb 7.6 L Hct 24.5 L MCV 91.4 MCH 28.4 MCHC 31.0 L RDW 18.5 H Plt Count 299 MPV 11.0 Seg Neutrophils % 60.0 Band Neutrophils % 18.0 H Lymphocytes % 8.0 Monocytes % 6.0 Metamyelocytes % 6.0 H Myelocytes % 2.0 H Neutrophils # 18.0 H Lymphocytes # 1.9 Monocytes # 1.4 H Nucleated RBCs/100 WBC 0.7 H Platelet Estimate Normal Hypochromasia Present A Anisocytosis 1+ A Heparin Anti-Xa, Unfract Sample Site ABG pH ABG pCO2 ABG pO2 ABG HCO3 ABG Total CO2 ABG O2 Saturation ABG Base Excess David Test Respiration Rate O2 Delivery Device Blood Gas Modality Inspired O2 Tidal Volume PEEP Sodium 132 L Potassium 3.6 Chloride 100 Carbon Dioxide 23 BUN 24 H Creatinine 1.28 Est GFR ( Amer) > 60 Est GFR (Non-Af Amer) 55 L BUN/Creatinine Ratio 19 Glucose 180 H POC Glucose 154 H Calculated Osmolality 283 Calcium 8.2 L Phosphorus 2.0 L 01/26/19 01/26/19 01/26/19 04:43 05:07 06:13 WBC RBC Hgb Hct MCV MCH MCHC RDW Plt Count MPV Seg Neutrophils % Band Neutrophils % Lymphocytes % Monocytes % Metamyelocytes % Myelocytes % Neutrophils # Lymphocytes # Monocytes # Nucleated RBCs/100 WBC Platelet Estimate Hypochromasia Anisocytosis Heparin Anti-Xa, Unfract Sample Site R Radial ABG pH 7.34 ABG pCO2 45 ABG pO2 62 L ABG HCO3 24 ABG Total CO2 26 ABG O2 Saturation 90 L ABG Base Excess -2 David Test N/A Respiration Rate 26 O2 Delivery Device Adult Vent Blood Gas Modality PRVC Inspired O2 70.0 Tidal Volume 500 PEEP 5 Sodium Potassium Chloride Carbon Dioxide BUN Creatinine Est GFR ( Amer) Est GFR (Non-Af Amer) BUN/Creatinine Ratio Glucose POC Glucose 154 H 161 H Calculated Osmolality Calcium Phosphorus 01/26/19 01/26/19 01/26/19 07:14 07:47 08:45 WBC RBC Hgb Hct MCV MCH MCHC RDW Plt Count MPV Seg Neutrophils % Band Neutrophils % Lymphocytes % Monocytes % Metamyelocytes % Myelocytes % Neutrophils # Lymphocytes # Monocytes # Nucleated RBCs/100 WBC Platelet Estimate Hypochromasia Anisocytosis Heparin Anti-Xa, Unfract Sample Site ABG pH ABG pCO2 ABG pO2 ABG HCO3 ABG Total CO2 ABG O2 Saturation ABG Base Excess David Test Respiration Rate O2 Delivery Device Blood Gas Modality Inspired O2 Tidal Volume PEEP Sodium Potassium Chloride Carbon Dioxide BUN Creatinine Est GFR ( Amer) Est GFR (Non-Af Amer) BUN/Creatinine Ratio Glucose POC Glucose 163 H 168 H 160 H Calculated Osmolality Calcium Phosphorus - ABG Interpretation ABG results: ABG ABG pH 7.34 pH Units (7.32-7.45) 01/26/19 04:43 ABG pCO2 45 mmHg (35-45) 01/26/19 04:43 ABG pO2 62 mmHg (85-104) L 01/26/19 04:43 ABG O2 Saturation 90 % (95-98) L 01/26/19 04:43 PT/INR, D-dimer PT 15.5 Seconds (9.4-12.1) H 01/14/19 17:30 Consult Discharge Plan - Plan Referrals: Ranjit Rodriguez MD [Primary Care Provider] -
--- NOTE | 2019-01-26 16:51 | Death Note ---
<DomingoFabio Ceferino - Last Filed: 01/26/19 16:44> Discharge Sum: Summary - Date and Time Date of admission: 01/12/19 09:57 Date of : 01/26/19 Time of : 16:41 - Summary Details: Patient's clinical condition consisting of acute respiratory failure, renal failure, septic shock, encephalopathy. Clinical condition continued to decline, with low likelihood of improvement, extremely poor prognosis. Discussion was had with family and palliative care concerning goals of care, prognosis. The family did illustrate that the patient had expressed in the past not wanting to have extended life support past few days, and that his current condition and any continued management would exceed his wishes. The decision was made to compassionately extubate and proceed with comfort care. He was compassionately extubated at approximately 13:30 on 01/26. Palliative care managed comfort care orders and the patient did pass peacefully at 16:41 on 01/26 with family present. - Additional Data Confirmation of as documented by pronouncing clinician: no pulse, no respirations, no heart sounds, pupils fixed and dilated Family: at bedside Attending/PCP notified?: Yes Attending physician: Ramon Waters MD Was code activated?: No Autopsy requested?: No clothing examiner notified?: No Organ bank notified?: Yes Advance directives: Yes Hospice patient?: No Discharge Sum: Diag - PCOD Probable Cause of : Cardiac arrest Discharge Sum: Prov - Provider Primary care physician: Ranjit Rodriguez MD Admitting clinician: Yanet Tripp Attending physician on admission: Ramon Waters Consults: 01/09/19 08:37 Consult to Pulmonology [CONS] Routine Consulting Provider: [facility] Reason for Consult: Sepsis, hypotension Call Completed: Yes 01/09/19 12:36 Consult to PICC team [Consult to Invasive Line Access Team] [CONS] Routine Reason for Consult: need for TPN, no central line placed Line Type: PICC 01/09/19 12:37 Consult to Nutrition [CONS] Routine Comment: Consulting Provider: NUTRITION Reason for Dietary Consult: TPN Start and Manage 01/10/19 07:43 Consult to Invasive Line Access Team [CONS] Routine Reason for Consult: Picc Line Insertion Line Type: PICC 01/14/19 18:22 Consult to Cardiology [CONS] Routine Comment: Consulting Provider: Cardiology [facility] Reason for Consult: Patient had diffuse ST elevations on EKG, asymptomattic, discussed with Anastasia, Heparin drip started, couldnt start ASA/Plavix because patient is post op bowel surgery on 01/08. First troponin negative. Trending troponins and EKGs. Patient has pacemaker and history of AFib on amiodarone. Time Notified: 18:24 Call Completed: Yes 01/16/19 11:30 Consult to Infectious Diseases [CONS] Routine Consulting Provider: Infectious Disease [place] Reason for Consult: sepsis likely from intra-abdominal source, worsening bandemia/leukocytosis on cefepime/flagyl Call Completed: Yes 01/16/19 14:49 Consult to Allergy/Immunology [CONS] Routine Consulting Provider: Allergy [place] Reason for Consult: Penicillin allergy testing Call Completed: Yes 01/16/19 15:50 Consult to Nutrition [CONS] Routine Comment: Consulting Provider: NUTRITION Reason for Dietary Consult: Tube Feed Start & Manage 01/17/19 08:57 Consult to [employer] [CONS] Routine Reason for SW Consult: needs ecf 01/17/19 09:38 Consult to Nutrition [CONS] Routine Comment: Consulting Provider: NUTRITION Reason for Dietary Consult: Tube Feed Start & Manage 01/18/19 09:18 Consult to Interventional Radiology [CONS] Stat Consulting Provider: Radiology [facility] Reason for Consult: CT guided drainage of of intraabdominal fluid collection 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 Pt with progressive leukocytosis with left shift. Call Completed: Yes 01/18/19 15:48 Consult to ENT [CONS] Routine Consulting Provider: ENT [place] Reason for Consult: hoarseness and dysphagia. Apparent soft tissue swelling noted on MBS but not clearly demonstrated on CT (although limited by retained barium) Call Completed: Yes 01/19/19 05:05 Consult to Critical Care [CONS] Routine Consulting Provider: Pulm [facility] [place] Reason for Consult: Rapid response at approximately 4:30 AM. It appears patient aspirated on secretions and dried barium. He was successfully intubated by respiratory therapy and transferred to the ICU. Time Notified: 05:06 Call Completed: No 01/20/19 07:30 Consult to Dialysis [CONS] ONCE 01/22/19 09:24 Consult to Nephrology [CONS] Stat Consulting Provider: [facility]/RHIANNA/GIOVANNY/GILB[facility] Reason for Consult: Worsening renal function/low urine output in the setting of sepsis Call Completed: Yes 01/23/19 11:34 Consult to Interventional Radiology [CONS] Stat Consulting Provider: Radiology [facility] Reason for Consult: Placement of HD catheter Call Completed: Yes 01/25/19 10:54 Consult to Palliative Care [CONS] Routine Comment: Consulting Provider: Pall[facility] Reason for Consult: Poor prognosis, goals of care and code status discussion needed, ok with surgical team Time Notified: 10:55 Call Completed: No Pronouncing clinician: Avi Steele <Avi Steele - Last Filed: 01/27/19 06:31> Discharge Sum: Summary - Date and Time Date of admission: 01/12/19 09:57 - Additional Data Attending physician: Ramon Waters MD Discharge Sum: Prov - Provider Primary care physician: Ranjit Rodriguez MD Consults: 01/09/19 08:37 Consult to Pulmonology [CONS] Routine Consulting Provider: [facility]m [facility] [place] Reason for Consult: Sepsis, hypotension Call Completed: Yes 01/09/19 12:36 Consult to PICC team [Consult to Invasive Line Access Team] [CONS] Routine Reason for Consult: need for TPN, no central line placed Line Type: PICC 01/09/19 12:37 Consult to Nutrition [CONS] Routine Comment: Consulting Provider: NUTRITION Reason for Dietary Consult: TPN Start and Manage 01/10/19 07:43 Consult to Invasive Line Access Team [CONS] Routine Reason for Consult: Picc Line Insertion Line Type: PICC 01/14/19 18:22 Consult to Cardiology [CONS] Routine Comment: Consulting Provider: Card[facility] Reason for Consult: Patient had diffuse ST elevations on EKG, asymptomattic, discussed with Anastasia, Heparin drip started, couldnt start ASA/Plavix because patient is post op bowel surgery on 01/08. First troponin negative. Trending troponins and EKGs. Patient has pacemaker and history of AFib on amiodarone. Time Notified: 18:24 Call Completed: Yes 01/16/19 11:30 Consult to Infectious Diseases [CONS] Routine Consulting Provider: Infectious Disease [place] Reason for Consult: sepsis likely from intra-abdominal source, worsening bandemia/leukocytosis on cefepime/flagyl Call Completed: Yes 01/16/19 14:49 Consult to Allergy/Immunology [CONS] Routine Consulting Provider: Allergy [facility] Reason for Consult: Penicillin allergy testing Call Completed: Yes 01/16/19 15:50 Consult to Nutrition [CONS] Routine Comment: Consulting Provider: NUTRITION Reason for Dietary Consult: Tube Feed Start & Manage 01/17/19 08:57 Consult to [employer] [CONS] Routine Reason for SW Consult: needs ecf 01/17/19 09:38 Consult to Nutrition [CONS] Routine Comment: Consulting Provider: NUTRITION Reason for Dietary Consult: Tube Feed Start & Manage 01/18/19 09:18 Consult to Interventional Radiology [CONS] Stat Consulting Provider: Radiology [facility] Reason for Consult: CT guided drainage of of intraabdominal fluid collection 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 Pt with progressive leukocytosis with left shift. Call Completed: Yes 01/18/19 15:48 Consult to ENT [CONS] Routine Consulting Provider: ENT [place] Reason for Consult: hoarseness and dysphagia. Apparent soft tissue swelling noted on MBS but not clearly demonstrated on CT (although limited by retained barium) Call Completed: Yes 01/19/19 05:05 Consult to Critical Care [CONS] Routine Consulting Provider: [facility] Reason for Consult: Rapid response at approximately 4:30 AM. It appears patient aspirated on secretions and dried barium. He was successfully intubated by respiratory therapy and transferred to the ICU. Time Notified: 05:06 Call Completed: No 01/20/19 07:30 Consult to Dialysis [CONS] ONCE 01/22/19 09:24 Consult to Nephrology [CONS] Stat Consulting Provider: [facility]HIANNA/GIOVANNY/[facility] Reason for Consult: Worsening renal function/low urine output in the setting of sepsis Call Completed: Yes 01/23/19 11:34 Consult to Interventional Radiology [CONS] Stat Consulting Provider: Radiology [facility] Reason for Consult: Placement of HD catheter Call Completed: Yes 01/25/19 10:54 Consult to Palliative Care [CONS] Routine Comment: Consulting Provider: [facility] Reason for Consult: Poor prognosis, goals of care and code status discussion needed, ok with surgical team Time Notified: 10:55 Call Completed: No - Attending Attestation I examined this patient and my medical decision-making was reviewed with the Resident Physician. I agree with the documented findings, disposition and treatment plan as described except to the extent set forth below. We independently had [id number] contact with the patient
== END 2019-01-26 16:41 | disposition expired | DRG 326 ==
LOC: EMEROOARM 08:10 → 3ANU 08:10 → OBSVTOIN 16:24 → INTOOBSV 16:24 → SUATTDRO 16:24 → 3ANU 17:15 → ICNU 01-09 10:49 → 2ANU 01-16 18:04 → ICNU 01-19 04:28
PROVIDERS: ADMIT Internal Medicine Nephrology; ATTEND Internal Medicine
PROC: IRDRAIN (2019-01-18 13:00)